=== PATIENT | female | born 1960 | race Caucasian/White ===

== ENCOUNTER 2022-08-04 15:05 | Emergency (ER) | payer OTHER, SELFPAY ==
[2022-08-04 15:07] VITALS: BP 156/110; PULSE 100; RESP 18; TEMP 36.6; O2SAT 98; BMI 42.1
--- NOTE | 2022-08-04 15:25 | ED.ALLEREA1 ---
HPI - Allergic Reaction General Chief complaint: Allergic Reaction Time Seen by Provider: 08/04/22 15:19 Source: patient Mode of arrival: walk-in Limitations: no limitations History of Present Illness HPI narrative: This document has been composed with a new electronic medical record and dragging voice recognition system. This document may not fully inaccurately reflect the entirety of the patient encounter.patient here with complaint of possible ALLERGIC reaction. She had a new food products today but she says it is also a lot of smoke in the air. Her basic symptoms today include extreme itching congestion. She does not have any hives. She does have nausea. She denied any seafood peanuts or egg products but did have a mint chocolate products today. She does not have any swelling of her tongue or lips she can tell. She does have a history of hypertension but has extreme itching and erythema of the skin.symptoms started late morning and have not gotten any better. She's not taken any medications. She says that when she takes Benadryl orally causes nausea. MD complaint: Reports allergic reaction; Denies hives or facial swelling Related Data Home Medications Medication Instructions Recorded Confirmed atorvastatin 20 mg tablet 20 mg PO DAILY 08/04/22 08/04/22 cholecalciferol (vitamin D3) 50 2,000 unit PO DAILY 08/04/22 08/04/22 mcg (2,000 unit) capsule (Vitamin D3) furosemide 20 mg tablet 20 mg PO DAILY 08/04/22 08/04/22 levothyroxine 50 mcg tablet 50 mcg PO DAILY 08/04/22 08/04/22 (Synthroid) lisinopril 20 1 tab PO DAILY 08/04/22 08/04/22 mg-hydrochlorothiazide 12.5 mg tablet pantoprazole 40 mg tablet,delayed 40 mg PO DAILY 08/04/22 08/04/22 release topiramate 50 mg tablet 50 mg PO DAILY 08/04/22 08/04/22 zolpidem 10 mg tablet 10 mg PO .hs PRN sleep 08/04/22 08/04/22 Allergies Allergy/AdvReac Type Severity Reaction Status Date / Time acyclovir Allergy Intermediate Verified 08/04/22 15:13 tb-serum Allergy Intermediate Uncoded 08/04/22 15:13 Exam Constitutional Vital Signs - 24 hr 08/04/22 15:07 Temperature 98 F Pulse Rate [Monitor] 100 H Respiratory Rate 18 Blood Pressure [Right Arm] 156/110 H Pulse Oximetry 98 Oxygen Delivery Method Room Air Course Vital Signs Vital signs: Vital Signs Temperature 98 F 08/04/22 15:07 Pulse Rate 100 H 08/04/22 15:07 Respiratory Rate 18 08/04/22 15:07 Blood Pressure 156/110 H 08/04/22 15:07 Pulse Oximetry 98 08/04/22 15:07 Oxygen Delivery Method Room Air 08/04/22 15:07 Temperature 98 F 08/04/22 15:07 Pulse Rate 100 H 08/04/22 15:07 Respiratory Rate 18 08/04/22 15:07 Blood Pressure 156/110 H 08/04/22 15:07 Pulse Oximetry 98 08/04/22 15:07 Oxygen Delivery Method Room Air 08/04/22 15:07 MDM - Allergic Reaction MDM Narrative Medical decision making narrative: This document has been composed with a new electronic medical record and dragging voice recognition system. This document may not fully inaccurately reflect the entirety of the patient encounter. Patient had rapid and significant clinical improvement with the previously mentioned therapy. It is impossible to determine exactly what her specific allergen may have been. We will start her on outpatient Medrol Clive and famotidine. Cool baths were advised. She may try some [id number] Benadryl if it doesn't have adverse reaction with her. Otherwise had like her to follow up with her primary care doctor. Discharge Plan Discharge Chief Complaint: Allergic Reaction Clinical Impression: Allergic reaction Patient Disposition: Home, Self-Care Time of Disposition Decision: 16:57 Prescriptions / Home Meds: No Action atorvastatin 20 mg tablet 20 mg PO DAILY cholecalciferol (vitamin D3) [Vitamin D3] 50 mcg (2,000 unit) capsule 2,000 unit PO DAILY furosemide 20 mg tablet 20 mg PO DAILY levothyroxine [Synthroid] 50 mcg tablet 50 mcg PO DAILY lisinopril-hydrochlorothiazide 20-12.5 mg tablet 1 tab PO DAILY pantoprazole 40 mg tablet,delayed release (DR/EC) 40 mg PO DAILY topiramate 50 mg tablet 50 mg PO DAILY zolpidem 10 mg tablet 10 mg PO .hs PRN (Reason: sleep) Instructions: General Allergic Reaction (ED) Stand Alone Forms: Portal Instructions Referrals: BARBER MELTON [Primary Care Provider] - 1 week Discharge Date/Time: 08/04/22 17:28
[2022-08-04] MEDS: DIPHENHYDRAMINE HCL 50 MG/ML (1ML) VIAL 25 MG IV (15:42)
[2022-08-04] MEDS: EPINEPHrine 1 MG/10 ML SYRINGE 0.3 MG IM (15:42)
[2022-08-04] MEDS: METHYLPREDNISOLONE SOD SUCC PF 125 MG/2 ML VIAL IVP (15:43)
[2022-08-04] MEDS: 0.9 % SODIUM CHLORIDE 1,000 ML 250 ML IV (15:43)
[2022-08-04 15:58] LABS: Basophils Absolute Auto 0.1 10^3/uL (0.0-0.1); Basophils Percent Auto 0.8 % (0.2-2.0); Eosinophils Absolute Auto 0.2 10^3/uL (0.0-0.7); Eosinophils Percent Auto 2.5 % (0.9-7.0); Hematocrit 44.7 % (36.0-48.0); Hemoglobin 15.1 g/dL (12.0-16.0); Immature Granulocytes Abs Auto 0.02 10^3/uL (0.00-0.03); Immature Granulocytes Pct Auto 0.3 % (0.0-0.5); Lymphocytes Absolute Auto 3.9 10^3/uL (1.2-3.8); Lymphocytes Percent Auto 50.1 % (20.5-60.0); Mean Corpuscular HGB Conc 33.8 g/dL (29.9-35.2); Mean Corpuscular Hemoglobin 31.9 pg (26.7-34.0); Mean Corpuscular Volume 94.3 fL (81.0-99.0); Mean Platelet Volume 11.3 fL (9.5-13.5); Monocytes Absolute Auto 0.7 10^3/uL (0.3-0.8); Monocytes Percent Auto 8.8 % (1.7-12.0); Neutrophils Percent Auto 37.5 % (43.0-75.0); Platelet Count 143 10^3/uL (150-450); Red Blood Count 4.74 10^6/uL (4.20-5.40); Red Cell Distribution Width 12.6 % (11.0-15.0); White Blood Count 7.9 10^3/uL (4.0-11.0)
[2022-08-04 16:08] LABS: BUN Creatinine Ratio 16.5; Calcium 8.8 mg/dL (8.5-10.1); Carbon Dioxide 27.2 mmol/L (21.0-32.0); Chloride 105 mmol/L (98-107); Estimated GFR (African America >60 (>=60); Estimated GFR (Non-African Ame >60 (>=60); Glucose 117 mg/dL (74-106); Potassium 3.2 mmol/L (3.5-5.1); Sodium 141 mmol/L (136-145)
[2022-08-04 17:22] VITALS: BP 126/70; PULSE 77; RESP 16; O2SAT 98
== END 2022-08-04 17:28 | disposition home or self-care (01) ==
PROVIDERS: Emergency Provider Emergency Medicine Emergency Medical Services; PCP Family Medicine
DX: T78.40XA Allergy, unspecified, initial encounter (principal)
CPT/HCPCS: 36415; 80048; 85025; 96372; 96374; 96375; 99284; J2930

== ENCOUNTER 2023-05-31 06:59 | Emergency (ER) | payer OTHER, SELFPAY ==
[2023-05-31 07:06] VITALS: BP 166/75; PULSE 93; TEMP 36.8; O2SAT 99; BMI 43.9
--- NOTE | 2023-05-31 07:16 | XR_ITS ---
The [address] [address] Patient Name: KATHY ABREU MRN: [id number] date: 1960 Sex: F Assigned Patient Location: ER Current Patient Location: ER Accession/Order Number: [id number] Exam Date: 05/31/2023 07:18 Report Date: 05/31/2023 07:42 At the request of: JOSEPH GROSSMAN Procedure: XR chest 1V EXAMINATION: XR chest 1V HISTORY: shortness of breath COMPARISON: XR chest 07/03/2016 FINDINGS: LUNGS: Mild opacities within left lung base. VASCULATURE: No increased pulmonary vasculature. PLEURA: No pneumothorax, effusion, or pleural thickening. CARDIAC: No cardiomegaly or cardiac silhouette abnormality. MEDIASTINUM: No visible mass or adenopathy. BONES: No fracture or visible bone lesion. OTHER: Negative. XR/XR chest 1V IMPRESSION: 1. Mild left basilar atelectasis versus infiltrates. 2. Evaluation is slightly limited by patient body habitus and AP portable technique. Electronically authenticated by: CUBA WONG Date: 05/31/2023 07:42
--- NOTE | 2023-05-31 07:55 | ED.GENADUL1 ---
HPI HPI - General Adult General Chief complaint: Shortness of Breath/Dyspnea Stated complaint: SOB Time Seen by Provider: 05/31/23 07:35 Source: patient Mode of arrival: walk-in Limitations: no limitations History of Present Illness HPI narrative: Patient here complaining of cough and shortness of breath congestion. She said symptoms started approximately 8 days ago with classic COVID symptomatology. She waited until the end of the week and tested positive for COVID. Her primary care doctor is also treating her for chronic back pain and she is scheduled to see physicians in [place] for that condition. She works at a [employer] and this is probably the source of her infection. She does not have diabetes but she does have hypertension. She has no history of COPD emphysema or asthma however she has been using nebulizer treatments at home a couple times a day. She has not been on any antibiotics or steroids. She has not had purulent sputum. She still has a lot of her symptoms. She is not oxygen dependent. Her oxygen pulse oximetry here is 99% on room air. She is in day 7 or 8 of her illness. She says she has used Paxlovid before and had terrible diarrhea with it but today, she is not a candidate because the timing. Related Data Home Medications ?Medication ?Instructions ?Recorded ?Confirmed atorvastatin 20 mg tablet 20 mg PO DAILY 08/04/22 05/31/23 cholecalciferol (vitamin D3) 50 2,000 unit PO DAILY 08/04/22 05/31/23 mcg (2,000 unit) capsule (Vitamin D3) furosemide 20 mg tablet 20 mg PO DAILY 08/04/22 05/31/23 lisinopril 20 1 tab PO DAILY 08/04/22 05/31/23 mg-hydrochlorothiazide 12.5 mg tablet pantoprazole 40 mg tablet,delayed 40 mg PO DAILY 08/04/22 05/31/23 release topiramate 50 mg tablet 50 mg PO DAILY 08/04/22 05/31/23 zolpidem 10 mg tablet 10 mg PO .hs PRN sleep 08/04/22 05/31/23 aripiprazole 5 mg tablet 5 mg PO DAILY 05/31/23 05/31/23 lorazepam 1 mg tablet 1 mg PO DAILY PRN anxiety 05/31/23 05/31/23 paroxetine HCl 20 mg tablet 20 mg PO DAILY 05/31/23 05/31/23 Allergies Allergy/AdvReac Type Severity Reaction Status Date / Time acyclovir Allergy Intermediate Verified 08/04/22 15:13 tb-serum Allergy Intermediate Uncoded 08/04/22 15:13 Opioid HPI Opioid Management Most Recent Opioid Data: No Data to Display [facility] Medical History (Updated 05/31/23 @ 07:59 by Ray Santiago MD) Depression ?F32.A - Depression, unspecified (ICD-10) Anxiety ?F41.9 - Anxiety disorder, unspecified (ICD-10) Hypertension ?I10 - Essential (primary) hypertension (ICD-10) Exam Narrative Exam Narrative: Awake alert good historian does not appear clinical ill or toxic but she just looks fatigued and tired. HEENT examination I see no conjunctivitis. There is no purulent rhinitis. No facial swelling. Lungs had some end expiratory bronchospasm but overall air exchange is excellent. There is no rales or rhonchi. Heart rate and rhythm are normal. Her legs do not show evidence of phlebitis edema or DVT. Cognition and mentation are normal. Constitutional Vital Signs, click to edit/add: Last Vital Signs Temp 98.2 F 05/31/23 07:06 Pulse 93 H 05/31/23 07:06 Resp 22 H 05/31/23 07:06 BP 166/75 H 05/31/23 07:06 Pulse Ox 99 05/31/23 07:06 O2 Del Method Room Air 05/31/23 07:06 Course Vital Signs Vital signs: Vital Signs Temperature 98.2 F 05/31/23 07:06 Pulse Rate 93 H 05/31/23 07:06 Respiratory Rate 22 H 05/31/23 07:06 Blood Pressure 166/75 H 05/31/23 07:06 Pulse Oximetry 99 05/31/23 07:06 Oxygen Delivery Method Room Air 05/31/23 07:06 Temperature 98.2 F 05/31/23 07:06 Pulse Rate 93 H 05/31/23 07:06 Respiratory Rate 22 H 05/31/23 07:06 Blood Pressure 166/75 H 05/31/23 07:06 Pulse Oximetry 99 05/31/23 07:06 Oxygen Delivery Method Room Air 05/31/23 07:06 Medical Decision Making MDM Narrative Medical decision making narrative: Chest x-ray is consistent with a viral bilateral pneumonitis. Her oximetry is normal. She still has a little bit of bronchial spasm. She is not a candidate for antivirals at this time. I do not believe she should be returning to work this week under these conditions so we will give her a work note. With her still having some bronchospasm we will have her continue her nebulizer treatments at least 3-4 times a day we will place her on prednisone for short burst of 5 days. Discharge Plan Discharge Stand Alone Forms: Portal Instructions Chief Complaint: Shortness of Breath/Dyspnea Clinical Impression: COVID-19 Patient Disposition: Home, Self-Care Time of Disposition Decision: 07:59 Prescriptions / Home Meds: No Action aripiprazole 5 mg tablet 5 mg PO DAILY lorazepam 1 mg tablet 1 mg PO DAILY PRN (Reason: anxiety) paroxetine HCl 20 mg tablet 20 mg PO DAILY atorvastatin 20 mg tablet 20 mg PO DAILY cholecalciferol (vitamin D3) [Vitamin D3] 50 mcg (2,000 unit) capsule 2,000 unit PO DAILY furosemide 20 mg tablet 20 mg PO DAILY lisinopril-hydrochlorothiazide 20-12.5 mg tablet 1 tab PO DAILY pantoprazole 40 mg tablet,delayed release (DR/EC) 40 mg PO DAILY topiramate 50 mg tablet 50 mg PO DAILY zolpidem 10 mg tablet 10 mg PO .hs PRN (Reason: sleep) Print Language: Citizen Of [place] Additional Instructions: Prednisone burst for 5 days/continue nebulizers 3-4 times a day Referrals: BARBER MELTON [Primary Care Provider] - 1 week
[2023-05-31 08:04] VITALS: BP 137/86; PULSE 88; O2SAT 99
== END 2023-05-31 08:05 | disposition home or self-care (01) ==
PROVIDERS: Emergency Provider Emergency Medicine Emergency Medical Services; PCP Family Medicine
DX: U07.1 COVID-19 (principal); I10 Essential (primary) hypertension; F32.A Depression, unspecified; F41.9 Anxiety disorder, unspecified; Z79.899 Other long term (current) drug therapy
CPT/HCPCS: 71045; 99283

== ENCOUNTER 2023-07-23 06:48 | Outpatient (RCR) | payer OTHER, SELFPAY | END 2023-10-02 10:55 | disposition home or self-care (01) | LOC: PT 06:48 | PROVIDERS: PCP Family Medicine; Visit Provider Anesthesiology | DX: M54.6 Pain in thoracic spine (principal); M54.50 Low back pain, unspecified | CPT/HCPCS: 97110; 97140; 97163 ==

== ENCOUNTER 2024-10-25 09:32 | Outpatient (OUT) | payer OTHER, SELFPAY ==
--- OUTSIDE RECORDS SUMMARY | 2024-09-25 09:46 | XMS_ITS ---
Author Organization The [facility] in [place] Address [address] [place] [address] Care Team Providers Care Diversified Crops Supervisor Name Role Phone Alma Mcdaniel MD Primary Care Provider Joel Schmitt [phone] REASON FOR VISIT No show Encounters Encounter Location Date Provider Diagnosis [facility] Rheumatology [address] [place] [address] 09/25/2024 Joel Mcintosh Plan Of Treatment No Information Progress Notes * Kaylynn ABREU DDOB:1960 (64 yo F)Acc No.[id number]:09/25/2024 Patient: Anid TERRANCEBasilia Kaylynn Rivera :1960 A ge:64 Y S ex:Female Address:[address] [place], [address] * true * Date: Generated for Sengi yajaira/Robbin/eTransmitting on: 0 10/25/2024 08:55 AM EDT
--- OUTSIDE RECORDS SUMMARY | 2024-10-03 06:01 | XMS_ITS ---
Author Organization The [facility] in [place] Address [address] [place] [address] Care Team Providers Care Towel Sewer Name Role Phone Alma Mcdaniel MD Primary Care Provider Joel Schmitt [phone] REASON FOR VISIT hospital stay Encounters Encounter Location Date Provider Diagnosis [facility] Rheumatology [address] [place] [address] 10/03/2024 Joel Mcintosh Plan Of Treatment No Information Progress Notes * Kaylynn ABREU DDOB:1960 (64 yo F)Acc No.[id number]:10/03/2024 Patient: Andi TERRANCEBasilia Kaylynn Rivera :1960 A ge:64 Y S ex:Female Address:[address] [place], [address] * true * Date: Generated for Sengi yajaira/Robbin/eTransmitting on: 0 10/25/2024 08:55 AM EDT
--- OUTSIDE RECORDS SUMMARY | 2024-10-13 10:15 | XMS_ITS | Encounter Summary ---
Author Organization [facility] Address [address] [place] [address] Care Team Providers Care Door Manager Name Role Phone Alma Mcdaniel MD Primary Care Provider [phone] Alma Mcdaniel MD Unavailable Alexandria Disla RN Unavailable [phone] Sheldon Durham DO Unavailable Zoraida Rodriguez NP Unavailable [phone] Reason for Visit * Reason Comments Post-op Post op geovanny Parotid ectomy Ear Problem Can't hear out of ea r Encounter Details Date Type Department Care Team (Late st Contact Info) Description 10/13/2024 10:15 AM EDT Office Visit [facility] [address] [place] [id number] Sheldon Durham DO [address] [place] [address] Parotid mass (Primary Dx); Otorrhea of left ear; Acute suppurative otitis media of left ear without spontaneous rupture of tympanic membrane, recurrence not specified Social History Tobacco Use Types Packs/Day Years Used Date Smoking Tobacco: Every Day Cigarettes 1 40 Smokeless Tobacco: Never Tobacco Cessation:Ready to Q uit: Not Asked; Counseling Given: Not Answered Alcohol Use Standard Drinks/Week Comments Not Currently 0 (1 standard drink = 0.6 oz pure alcohol) No alcohol since 2013, caffeine intake: 2 cups daily B1300 Health Literacy Answer Date Recor ded How often do you need to hav e someone help you when you read instructions, pamphlets, or other written material from your doctor or pharmacy? Never 10/15/2023 Humiliation, Afraid, Rape, and Kick questionnair e Answer Date Recorded Within the last year, have y ou been afraid of your partner or ex-partner? No 08/05/2022 Within the last year, have y ou been humiliated or emotionally abused in other ways by your partner or ex-partner? No Within the last year, have y ou been kicked, hit, slapped, or otherwise physically hurt by your partner or ex-partner? No 08/05/2022 Within the last year, have y ou been raped or forced to have any kind of sexual activity by your partner or ex-partner? No 08/05/2022 Social Connection and Isolat ion Panel [NHANES] Answer Date Recorded In a typical week, how many times do you talk on the phone with family, friends, or neighbors? More than three times a week 10/15/2023 How often do you get togethe r with friends or relatives? Once a week 10/15/2023 How often do you attend chur or roman catholic services? More than 4 times per year 10/15/2023 Do you belong to any clubs o r organizations such as holiness groups, unions, fraternal or athletic groups, or school groups? No 10/15/2023 How often do you attend meet ings of the clubs or organizations you belong to? More than 4 times per year 10/15/2023 Are you , , di vorced, , never , or living with a partner? 10/15/2023 AUDIT-C Answer Date Recorded Q1: How often do you have a drink containing alcohol? Never 10/15/2023 Q2: How many drinks containi ng alcohol do you have on a typical day when you are drinking? Patient does not drink Q3: How often do you have si x or more drinks on one occasion? Never 10/15/2023 Overall Financial Resource Strain (CARDIA) Answe r Date Recorded How hard is it for you to pa y for the very basics like food, housing, medical care, and heating? Somewhat hard 10/15/2023 PHQ-2 Answer Date Recorded Patient Health Questionnaire-2 Score 0 08/05/2022 [facility] of Occupat ional Health - Occupational Stress Questionnaire Answer Date Recorded Do you feel stress - tense, restless, nervous, or anxious, or unable to sleep at night because your mind is troubled all the time - these days? Rather much 10/15/2023 Exercise Vital Sign Answer Date Recorde d On average, how many days pe r week do you engage in moderate to strenuous exercise (like a brisk walk)? 0 days 10/15/2023 On average, how many minutes do you engage in exercise at this level? 0 min 10/15/2023 Hunger Vital Sign Answer Date Recorded Within the past 12 months, y ou worried that your food would run out before you got the money to buy more. Never true 10/15/19 24 Within the past 12 months, t he food you bought just didn't last and you didn't have money to get more. Never true 10/15/2023 PRAPARE - Transportation Answer Date Re corded In the past 12 months, has l ack of transportation kept you from medical appointments or from getting medications? No 09/29 In the past 12 months, has l ack of transportation kept you from meetings, work, or from getting things needed for daily living? No 10/15/2023 Housing Stability Vital Sign Answer August e Recorded In the last 12 months, was t here a time when you were not able to pay the mortgage or rent on time? No 08/05/2022 In the last 12 months, how many places have you lived? 1 08/05/2022 In the last 12 months, was t here a time when you did not have a steady place to sleep or slept in a usp (including now)? No 08/05/2022 Housing Stability Vital Sign Answer August e Recorded In the last 12 months, was t here a time when you were not able to pay the mortgage or rent on time? No 10/15/2023 In the past 12 months, how m any times have you moved where you were living? 0 10/15/2023 At any time in the past 12 [facility], were you homeless or living in a usp (including now)? No 10/15/2023 Comments Unknown Sex and Gender Information Value Date Recorded Sex Assigned at Not on file Legal Sex Female 7:23 PM EDT Gender Identity Not on file Sexual Orientation Not on file documented as of this encounter Last Filed Vital Signs Vital Sign Reading Time Taken Comments Blood Pressure - - Pulse - - Temperature - - Respiratory Rate - - Oxygen Saturation - - Inhaled Oxygen Concentration - - Weight 104 kg (230 lb) 10/13/2024 10:04 AM EDT Height 157.5 cm (5' 2 ) 10/13/2024 10:04 AM EDT Body Mass Index 42.07 10/13/2024 10:04 AM EDT documented in this encounter Progress Notes * Sheldon Redd Geovanijoysuzanna, DO - 10/13/2024 10:15 AM EDT Subjective Patient ID: Shelby Talamantes is a 64 y.o. female who presents for Post-op (Post op geovanny Parotidectomy) and Ear Problem (Can't hear out of ear) HPI This patient presents with a 3 day history of increasing left-sided ear pain and plugging. Patient was recently hospitalized for pneumonia. She is postop left parotidectomy. Review of Systems Patient describes pain and drainage from her left ear. Also describes decreased hearing on that side. Recently started using antibiotic ear drops. The rest of her review of systems is unchanged Objective ENT Physical Exam General Examination: General overview: Normal, age-appropriate, no evidence of distress mild respiratory difficulty Head: Normocephalic, atraumatic Eyes: Pupils are equally round and reactive to light and accommodation, extraocular muscles are intact Ears: External ear architecture within normal limits, left ear canals occluded with amorphous debris which is removed under binocular microscopy. Eardrum appears to be somewhat bulging. Hyperemia noted. Nose: External nose unremarkable, nares patent, septum intact, evidence of smoking. Oral cavity: Mucosa moist, no evidence of ulcer, mass, or lesion, poor dentition. Throat: Clear Neck/thyroid: Neck supple, full range of motion, the area of surgical intervention on the left is healing quite nicely. Lymph nodes: No cervical lymphadenopathy Skin: Warm and dry, no evidence of suspicious lesions, no rash Heart: No jugular venous distention, point of maximal impulse normal Lungs: Good air movement, no audible wheezing, no shortness of breath Chest: Normal shape and expansion Abdomen: Normal, soft, nontender, nondistended Musculoskeletal: Cervical spine normal, full range of motion Extremities: No clubbing, cyanosis, or edema Peripheral pulses: 2+ radial, 2+ carotid Neurologic: Alert and oriented, cranial nerves 2-12 are grossly intact Psych: Alert and oriented, normal affect, no evidence of distress Assessment/Plan Diagnoses and all orders for this visit: Parotid mass Comments: Patient continues to heal up very well. We will see her back as needed Otorrhea of left ear Comments: Copious material removed from the left ear canal under binocular microscopy. We will continue antibiotic eardrops and start oral medication Orders: - levoFLOXacin (Levaquin) 500 MG tablet; Take 1 tablet (500 mg) by mouth Daily for 14 days Acute suppurative otitis media of left ear without spontaneous rupture of tympanic membrane, recurrence not specified Comments: We will start this patient on oral Levaquin. We will see her back in 7-10 days for recheck documented in this encounter Plan of Treatment Upcoming Encounters Date Type Department Care Team (Late st Contact Info) Description 10/26/2024 10:45 AM EDT Office Visit [facility] [address] [place] [address] Sheldon Durham DO [address] [place] [address] 11/20/2024 8:00 AM EDT Office Visit [facility] [address] [place] [address] Zoraida Rodriguez NP [address] [place] [address] documented as of this encounter Goals Goal Patient Goal Type Associated Problems Recent Progress Patient-Stated? Author Help patient manage antidepressant medication Care Plan Patient on antidepressant monitoring plan No Alma Mcdaniel MD Baseline PHQ-9 Care Plan Baseline PHQ-9 No Alma Mcdaniel MD documented as of this encounter Visit Diagnoses Diagnosis Parotid mass- Primary Swelling, mass, or lump in head and neck Otorrhea of left ear Acute suppurative otitis media of left ear without spontaneous rupture of tympanic membrane, recurrence not specified documented in this encounter Additional Health Concerns Active Problems Noted Date Diagnosed Date Patient on antidepressant monitoring plan 2024 Baseline PHQ-9 07/04/2024 documented as of this encounter Care Teams Door Manager Relationship Specialty Start Date End Date Alma Mcdaniel MD [address] [place] [address] PCP - General Family Medicine 08/05/22 Alma Mcdaniel MD [address] [place] [address] PCP - Medical [employer] [employer] 06/27/18 10/16/24 Alexandria Disla, [place] [address] [place] [address] Registered Nurse Family Medicine 10/15/23 Sheldon Durham DO [address] [place] [address] Otolaryngology 03/03/24 Zoraida Rodriguez NP [address] [place] [address] Nurse Practitioner Family Medicine 08/23/24 documented as of this encounter
--- OUTSIDE RECORDS SUMMARY | 2024-10-16 08:00 | XMS_ITS | Encounter Summary ---
Author Organization [facility] Address [address] [place] [address] Care Team Providers Care Quality Tech Name Role Phone Alma Mcdaniel MD Primary Care Provider [phone] Alma Mcdaniel MD Unavailable Alexandria Disla RN Unavailable [phone] Sheldon Durham DO Unavailable [phone] Zoraida Rodriguez NP Unavailable [phone] Reason for Referral * Consultation (Routine) - Authorized Specialty Diagnoses / Procedures Referred By Mathew blanton Referred To Contact Pain Medicine Diagnoses Fibromyalgia Other chronic pain Chronic bilateral low back pain with bilateral sciatica Procedures CO OFFICE/OUTPATIENT [facility] MDM 60 MINUTES Zoraida Rodriguez NP [address] [place] [address] Phone: tel: fax: Parvin Jimenez MD [address] [place] [address] Phone: tel: fax: Referral ID Status Reason Start Date Expiration Date Visits Requested Visits Authorized [id number] Authorized Specialty Services Required 10/16/2024 04/14/2025 1 1 Scheduling Instructions Pain management Center in [place], [place] Reason for Visit * Reason Comments Hospital Follow-up Encounter Details Date Type Department Care Team (Late st Contact Info) Description 10/16/2024 8:00 AM EDT Office Visit [facility] [address] [place] [address] Zoraida Rodriguez NP [address] [place] [address] Hospital discharge follow-up (Primary Dx); Migraine aura occurring with and without headache ; Fibromyalgia; Other chronic pain; Chronic bilateral low back pain with bilateral sciatica; Type 2 diabetes mellitus with other specified complication, without long-term current use of insulin (HCC); Essential hypertension Social History Tobacco Use Types Packs/Day Years Used Date Smoking Tobacco: Every Day Cigarettes 1 40 Smokeless Tobacco: Never Alcohol Use Standard Drinks/Week Comments Not Currently [...] week 10/15/2023 How often do you attend [facility] or denominational services? More than 4 times per year 10/15/2023 Do you belong to any clubs o r organizations such as advent groups, unions, fraternal or athletic groups, or [...] Recorded Patient Health Questionnaire-2 Score 0 [facility] - Occupational Stress Questionnaire Answer Date Recorded [...] place to sleep or slept in a long term (including now)? No 08/05/2022 Housing Stability Vital Sign Answer August e Recorded In the last 12 months, was t here a time when you were not able to pay the mortgage or rent on time? No 10/15/2023 In the past 12 months, how m any times have you moved where you were living? 0 10/15/2023 At any time in the past 12 m [facility], were you homeless or living in a long term (including now)? No 10/15/2023 Comments Unknown Sex and Gender Information Value Date Recorded Sex Assigned at Not on file Legal Sex Female 7:23 PM EDT Gender Identity Not on file Sexual Orientation Not on file documented as of this encounter Last Filed Vital Signs Vital Sign Reading Time Taken Comments Blood Pressure 122/68 10/16/2024 8:05 AM EDT Pulse 98 10/16/2024 8:05 AM EDT Temperature - - Respiratory Rate - - Oxygen Saturation 96% 10/16/2024 8:05 AM EDT Inhaled Oxygen Concentration - - Weight 105 kg (231 lb) 10/16/2024 8:05 AM EDT Height 157.5 cm (5' 2 ) 10/16/2024 8:05 AM EDT Body Mass Index 42.25 10/16/2024 8:05 AM EDT documented in this encounter Progress Notes * Zoraida Rodriguez NP - 10/16/2024 8:00 AM EDTAssociated Problem(s): Fibromyalgia Orders: Ambulatory referral to Pain Medicine; Future * Zoraida Rodriguez NP - 10/16/2024 8:00 AM EDTAssociated Problem(s): Other chronic pain Orders: Ambulatory referral to Pain Medicine; Future HYDROcodone-acetaminophen (Cheraw) 5-325 MG tablet; Take 1 tablet by mouth every 6 (six) hours if needed for severe pain for up to 2 days * Zoraida Rodriguez NP - 10/16/2024 8:00 AM EDTAssociated Problem(s): Chronic bilateral low back pain with bilateral sciatica Orders: Ambulatory referral to Pain Medicine; Future HYDROcodone-acetaminophen (Cheraw) 5-325 MG tablet; Take 1 tablet by mouth every 6 (six) hours if needed for severe pain for up to 2 days * Zoraida Rodriguez NP - 10/16/2024 8:00 AM EDTAssociated Problem(s): Type 2 diabetes mellitus, without long-term current use of insulin (HCC) Orders: Tirzepatide 10 MG/0.5ML solution auto-injector; Inject 10 mcg under the skin every 7 (seven) days Diabetic protocols reviewed. Discussed and updated current management plan. Addressed barriers to care, diet, exercise plan and blood sugar testing. Education provided for mediations. Discussed complications which could include blindness, heart disease and kidney disease. Goal of A1C less then 7 and Blood pressure less then 130/80. * Zoraida Rodriguez NP - 10/16/2024 8:00 AM EDTAssociated Problem(s): Essential hypertension Continue to check blood pressures at home while staying off of lisinopril- hydrochlorothiazide. If blood pressures continue to stay in normal range, will stay of of medication. If blood pressures increase, will restart medication. * Zoraida Rodriguez NP - 10/16/2024 8:00 AM EDT Images from the original note were not included. Subjective Patient ID: Shelby Talamantes is a 64 y.o. female who presents for Hospital Follow-up. HPI Flowsheet Row Patient Outreach from 10/10/2024 in [facility] with Alexandria Disla RN Hospital Information ED, Hospital or Usp Facility Discharge? Hospital Patient has been contacted within two business days of discharge Yes Diagnosis acute resp failure with hypoxemia, severe sepsis, CA pneum, demand, ischemia, myocardium,copd exac, nicotine dependence, htn, morbid obesiy Discharge Date 10/06/24 Discharged To: Home Setting Discharge Hospital [facility] Engagement Admission Date 09/28/24 Medications Discharge medications reviewed and reconciled from hospital? Yes Is the patient having any side effects they believe may be caused by any medication additions or changes? Yes [itching when wearing nicotine patch] Does the patient have all medications ordered at discharge? Yes Is the patient taking all medications as directed (includes completed medication regime)? Yes Appointments Does the patient have a primary care provider? Yes Nursing Interventions Verified appointment date/time/provider Does the patient have any upcoming specialty appointments? Yes Nursing Interventions Advised patient to keep appointment Self Management Does patient have home health? no Patient Teaching Does the patient have access to their discharge instructions? Yes Nursing Interventions Reviewed instructions with patient What is the patient's perception of their health status since discharge? Improving Is the patient/caregiver able to teach back the hierarchy of who to call/visit for symptoms/problems? PCP, Specialist, Home Health nurse, Urgent Care, ED, 911 Yes Wrap Up History of Present Illness The patient presents for evaluation of pain management, hearing loss, diabetes, hypertension, and lower extremity edema. She reports an improvement in her condition following a hospital stay, during which she was prescribed a buprenorphine patch by a painter plate. This treatment allowed her to perform daily activities without experiencing pain. However, the patch has since , and was not given anyrefills after her hospital discharge. Consequently, she has been experiencing a recurrence of body pain and difficulty performing simple tasks such as making a sandwich or bed. She also reports waking up frequently at night due to pain. She is seeking a temporary solution for her pain until she canresume her pain management regimen. She was previously taking hydrocodone 5 mg for pain relief. Shehad to cancel her contract with Dr. Porter due to insurance issues and is currently seeking a new provider. She experienced a significant hearing loss, which she attributes to an ear infection. She is currently not using her hearing aids due to the infection and associated drainage. She was prescribed levothyroxine and eardrops by Dr. Durham. She has a follow up appointment with Dr. Padilla on 10/26/2024. She used her last dose of Mounjaro the previous night and is requesting a prescription refill. She did not take Mounjaro during her hospital stay and missed one dose. She was advised to discontinue lisinopril during her hospital stay and has not been monitoring her blood pressure at home. She has a history of low blood pressure, with a recorded reading of 96/58, which led to the discontinuation of hydrochlorothiazide. She has noticed swelling in her ankles and is considering resuming Bumex, which she was previously advised to stop by Dr. Mcdaniel. She had difficulty sleeping during her hospital stay, managing only 20 minutes of sleep over two days. She was diagnosed with two different types of pneumonia during her hospital stay. She missed a dentist appointment during her hospital stay. Social History: Marital Status: Tobacco: Smokes cigarettes Sleep: Reports difficulty sleeping, only managed 20 minutes of sleep over two days during hospital stay Living Condition: Lives with PAST SURGICAL HISTORY: Neck surgery Objective BP 122/68 Pulse 98 Ht 5' 2 Wt 231 lb SpO2 96% BMI 42.25 kg/m?? Physical Exam Vitals and nursing note reviewed. Constitutional: Appearance: Normal appearance. HENT: Head: Normocephalic and atraumatic. Right Ear: There is impacted cerumen. Left Ear: Drainage, swelling and tenderness present. Cardiovascular: Rate and Rhythm: Normal rate and regular rhythm. Pulses: Normal pulses. Heart sounds: Normal heart sounds. Pulmonary: Effort: Pulmonary effort is normal. No respiratory distress. Breath sounds: Normal breath sounds. No stridor. No wheezing, rhonchi or rales. Musculoskeletal: Right lower le+ Pitting Edema present. Left lower le+ Pitting Edema present. Skin: General: Skin is warm and dry. Neurological: General: No focal deficit present. Mental Status: She is alert and oriented to person, place, and time. Psychiatric: Mood and Affect: Mood normal. Behavior: Behavior normal. Physical Exam Ears: Swelling noted in the ear. Respiratory: Clear to auscultation, no wheezing, rales or rhonchi Cardiovascular: Regular rate and rhythm, no murmurs, rubs, or gallops Extremities: Swelling noted in the ankles. Assessment & Plan Migraine aura occurring with and without headache Stable Hospital discharge follow-up Reviewed hospital records including labs, imaging, procedure and consult notes. Overall patient is feeling better and is encouraged to keep follow-up appointments with specialists as scheduled. Patient voices no further concerns at this time. Fibromyalgia Orders: Ambulatory referral to Pain Medicine; Future Other chronic pain Orders: Ambulatory referral to Pain Medicine; Future HYDROcodone-acetaminophen (Cheraw) 5-325 MG tablet; Take 1 tablet by mouth every 6 (six) hours if needed for severe pain for up to 2 days Chronic bilateral low back pain with bilateral sciatica Orders: Ambulatory referral to Pain Medicine; Future HYDROcodone-acetaminophen (Cheraw) 5-325 MG tablet; Take 1 tablet by mouth every 6 (six) hours if needed for severe pain for up to 2 days Type 2 diabetes mellitus with other specified complication, without long-term current use of insulin (HCC) Orders: Tirzepatide 10 MG/0.5ML solution auto-injector; Inject 10 mcg under the skin every 7 (seven) days Diabetic protocols reviewed. Discussed and updated current management plan. Addressed barriers to care, diet, exercise plan and blood sugar testing. Education provided for mediations. Discussed complications which could include blindness, heart disease and kidney disease. Goal of A1C less then 7 and Blood pressure less then 130/80. Essential hypertension Continue to check blood pressures at home while staying off of lisinopril- hydrochlorothiazide. If blood pressures continue to stay in normal range, will stay of of medication. If blood pressures increase, will restart medication. Assessment & Plan 1. Pain management: - Pain is likely exacerbated by fibromyalgia and other chronic pain. - Referral to [facility]. [facility]endrez at [facility] for pain management has been initiated. - Prescription for Cheraw, sufficient for 2 days, has been provided. She is advised to contact the pain management clinic for further medication management. 2. Hearing loss: - Significant hearing loss reported and currently not using hearing aids due to an ear infection. - Advised to continue using the prescribed eardrops from Dr. Durham and to keep follow up appointment on 10/26/2024. 3. Diabetes: - Prescription for tirzepatide (Mounjaro) has been sent to pharmacy. 4. Hypertension: - Advised to monitor blood pressure at home and keep of log of blood pressures. 5. Lower extremity edema: - Swelling in ankles reported. - May continue taking Bumex for leg swelling. Follow-up: The patient will follow up in 1 month for diabetes and hypertension follow up. documented in this encounter Plan of Treatment Upcoming Encounters Date Type Department Care Team (Late st Contact Info) Description 10/26/2024 10:45 AM EDT Office Visit [facility] [address] [place] [address] Sheldon Durham DO [address] [place] [address] 11/20/2024 8:00 AM EDT Office Visit [facility] [address] [place] [address] Zoraida Rodriguez NP [address] [place], [place] [id number] Scheduled Referrals Name Type Priority Associated Diagnoses Order Schedule Ambulatory referral to Pain Medicine Outpatient Referral Routine Fibromyalgia Other chronic pain Chronic bilateral low back pain with bilateral sciatica Expected: 10/16/2024 (Approximate), Expires: 04/18/2025 documented as of this encounter Goals Goal Patient Goal Type Associated Problems Recent Progress Patient-Stated? Author Help patient manage antidepressant medication Care Plan Patient on antidepressant monitoring plan No Alma Mcdaniel MD Baseline PHQ-9 Care Plan Baseline PHQ-9 No Alma Mcdaniel MD documented as of this encounter Visit Diagnoses Diagnosis Hospital discharge follow-up- Primary Other follow-up examination Migraine aura occurring with and without headache Fibromyalgia Unspecified myalgia and myositis Other chronic pain Chronic bilateral low back pain with bilateral sciatica Type 2 diabetes mellitus with other specified complication, without long-term current use of insulin (HCC) Essential hypertension Unspecified essential hypertension documented in this encounter Additional Health Concerns Active Problems Noted Date Diagnosed Date Patient on antidepressant monitoring plan 2024 Baseline PHQ-9 07/04/2024 documented as of this encounter Care Teams Quality Tech Relationship Specialty Start Date End Date Alma Mcdaniel MD [address] [place], [place] [id number] PCP - General Family Medicine 08/05/22 Alma Mcdaniel MD [address] [place], [place] [id number] PCP - Medical [place] [employer] 06/27/18 10/16/24 Alexandria Disla RN [address] [place] [address] Registered Nurse Family Medicine 10/15/23 Sheldon Durham DO [address] [place] [address] Otolaryngology 03/03/24 Zoraida Rodriguez NP [address] [place], [place] [phone] Nurse Practitioner Family Medicine 08/23/24 documented as of this encounter
--- OUTSIDE RECORDS SUMMARY | 2024-10-20 08:00 | XMS_ITS ---
Author Organization [facility] in [place] Address [address] [place] [address] Care Team Providers Care Business Development Associate Name Role Phone Alma Mcdaniel MD Primary Care Provider Joel Schmitt [phone] REASON FOR VISIT -2 Month Follow Up- Encounters Encounter Location Date Provider Diagnosis [facility] Rheumatology [address] [place] [address] 10/20/2024 Joel Mcintosh Plan Of Treatment No Information Progress Notes * Kaylynn ABREU DDOB:1960 (64 yo F)Acc No.[id number]:10/20/2024 UNLOCKED PROGRESS NOTE Follow Up Patient: Andi TERRANCEBasilia Kaylynn Rivera Provider: Syed Mcintosh DO :1960 A ge:64 Y S ex:Female Date:10/20/2024 Address:[address] [facility] Pcp:Alma Mcdaniel MD Subjective: * Chief Complaints: * 1 . -2 Month Follow Up-. * Medical History: Objective: * Vitals: Assessment: Plan: * Treatment: * * Electronic signature of Daisy Mcintosh DO, [id number] on 10/25/2024 at 08:55 AM EDT Sign off status: Pending Visit Status: R /S (Rescheduled) * Provider: Syed Mcintosh DO Date: 0 10/20/2024 Generated for Lizabeth gates/Robbin/Juan Citting on: 0 10/25/2024 08:55 AM EDT
--- OUTSIDE RECORDS SUMMARY | 2024-10-25 09:35 | XMS_ITS | Encounter Summary ---
Author Organization [facility] Address [address] [place] [address] Care Team Providers Care Health And Wellness Sales Consultant Name Role Phone Alma Mcdaniel MD Primary Care Provider [phone] Ayse Carmona NP Unavailable [phone] Alma Mcdaniel MD Unavailable Alexandria Disla RN Unavailable [phone] Sheldon Durham DO Unavailable [phone] Zoraida Rodriguez NP Unavailable [phone] Encounter Details Date Type Department Care Team (Late st Contact Info) Description 07/02/2024 [facility] [address] [place] [address] Stephanie Pelayo NP Social History Tobacco Use Types Packs/Day Years Used Date Smoking Tobacco: Every Day Cigarettes 1 40 Smokeless Tobacco: Never Alcohol Use Standard Drinks/Week Comments Not Currently 0 (1 standard drink = 0.6 oz pur e alcohol) No alcohol since 2013 B1300 Health Literacy Answer Date Recor ded [...] 10/15/2023 How often do you attend chur ch or jew services? More than 4 times per year 10/15/2023 Do you belong to any clubs o r organizations such as congregational groups, unions, fraternal or athletic groups, or [...] Recorded Patient Health Questionnaire-2 Score 0 08/05/2022 [facility] - Occupational Stress [...] place to sleep or slept in a senior care (including now)? No 08/05/2022 Housing Stability Vital Sign Answer August e Recorded In the last 12 months, was t here a time when you were not able to pay the mortgage or rent on time? No 10/15/2023 In the past 12 months, how m any times have you moved where you were living? 0 10/15/2023 At any time in the past 12 m [facility], were you homeless or living in a senior care (including now)? No 10/15/2023 Comments Unknown Sex and Gender Information Value Date Recorded Sex Assigned at Not on file Legal Sex Female 7:23 PM EDT Gender Identity Not on file Sexual Orientation Not on file documented as of this encounter Plan of Treatment Upcoming Encounters Date Type Department Care Team (Late st Contact Info) Description 10/26/2024 10:45 AM EDT Office [facility] [address] [place] [address] Sheldon Durham DO [address] [place] [address] 11/20/2024 8:00 AM EDT Office Visit [facility] [address] [facility] [place] [id number] Zoraida Rodriguez NP [address] [facility] [place] [address] documented as of this encounter Visit Diagnoses Not on filedocumented in this encounter Care Teams Health And Wellness Sales Consultant Relationship Specialty Start Date End Date Alma Mcdaniel MD [address] [facility] [place] [address] PCP - General Family Medicine 08/05/22 Alma Mcdaniel MD [address] [facility] [place] [address] PCP - Medical [place] [employer] 06/27/18 10/16/24 Ayse Carmona NP [address] [facility] [place] [address] Nurse Practitioner Family Medicine 08/05/22 08/22/24 Alexandria Disla, [place] [address] [place] [address] Registered Nurse Family Medicine 10/15/23 Sheldon Durham DO [address] [place] [address] Otolaryngology 03/03/24 Zoraida Rodriguez NP [address] [place] [address] Nurse Practitioner Family Medicine 08/23/24 documented as of this encounter
--- OUTSIDE RECORDS SUMMARY | 2024-10-25 09:35 | XMS_ITS | Encounter Summary ---
Author Organization [facility] Address [address] [place] [facility] [place] [address] Care Team Providers Care Travel Accommodations Rater Name Role Phone Alma Mcdaniel MD Primary Care Provider [phone] Ayse Carmona QA TEST ANALYST Unavailable [phone] Alma Mcdaniel MD Unavailable Alexandria Disla RN Unavailable [phone] Sheldon Durham DO Unavailable [phone] Zoraida Rodriguez QA TEST ANALYST Unavailable [phone] Encounter Details Date Type Department Care Team (Late st Contact Info) Description 07/20/2024 Results Follow-Up [facility] [address] [place] [address] Alma Mcdaniel MD [address] [place], [place] [phone] POCT Urinalysis dipstick, Urine culture (clean catch) Social History Tobacco Use Types Packs/Day Years [...] week 10/15/2023 How often do you attend [facility] or judaism services? More than 4 times per year 10/15/2023 Do you belong to any clubs o r organizations such as anglican groups, unions, fraternal or athletic groups, or [...] Recorded Patient Health Questionnaire-2 Score 0 08/05/2022 [facility] - Occupational Stress [...] place to sleep or slept in a snf (including now)? No 08/05/2022 Housing Stability Vital [...] were you homeless or living in a snf (including now)? No 10/15/2023 Comments Unknown Sex [...] Visit [facility] [address] [place] [address] Sheldon Durham DO [address] [place] [address] 11/20/2024 8:00 AM EDT Office Visit [facility] [address] [place] [phone] Zoraida Rodriguez NP [address] [place] [address] documented as of this encounter Goals Goal Patient Goal Type Associated Problems Recent Progress Patient-Stated? Author Help patient manage antidepressant medication Care Plan Patient on antidepressant monitoring plan No Alma Mcdaniel MD Baseline PHQ-9 Care Plan Baseline PHQ-9 No Alma Mcdaniel MD documented as of this encounter Visit Diagnoses Diagnosis Dysuria- Primary documented in this encounter Additional Health Concerns Active Problems Noted Date Diagnosed Date Patient on antidepressant monitoring plan 2024 Baseline PHQ-9 07/04/2024 documented as of this encounter Care Teams Travel Accommodations Rater Relationship Specialty Start Date End Date Alma Mcdaniel MD [address] [place] [address] PCP - General Family Medicine 08/05/22 Alma Mcdaniel MD [address] [place] [address] PCP - Medical [place] [employer] 06/27/18 10/16/24 Ayse Carmona NP [address] [place] [address] Nurse Practitioner Family Medicine 08/05/22 08/22/24 Alexandria Disla, RN [address] [place] [address] Registered Nurse Family Medicine 10/15/23 Sheldon Durham DO [address] [place] [address] Otolaryngology 03/03/24 Zoraida Rodriguez NP [address] [place] [address] Nurse Practitioner Family Medicine 08/23/24 documented as of this encounter
--- OUTSIDE RECORDS SUMMARY | 2024-10-25 09:35 | XMS_ITS | Encounter Summary ---
Author Organization [facility] Address [address] [facility] [place] [address] Care Team Providers Care Flight Attendant/Inflight Manager Name Role Phone Alma Mcdaniel MD Primary Care Provider [phone] Ayse Carmona SURVEILLANCE ANALYST Unavailable [phone] Alma Mcdaniel MD Unavailable Alexandria Disla RN Unavailable [phone] Sheldon Durham DO Unavailable Zoraida Rodriguez SURVEILLANCE ANALYST Unavailable [phone] Encounter Details Date Type Department Care Team (Late st Contact Info) Description 07/22/2024 [facility] [address] [place] [address] Alma Mcdaniel MD [address] [place], [place] [id number] Social History Tobacco Use Types Packs/Day Years [...] week 10/15/2023 How often do you attend [facility] or baptism services? More than 4 times per year 10/15/2023 Do you belong to any clubs o r organizations such as sikh groups, unions, fraternal or athletic groups, or [...] Recorded Patient Health Questionnaire-2 Score 0 08/05/2022 [facility] [place] of Occupat ional Health - Occupational Stress [...] place to sleep or slept in a correction (including now)? No 08/05/2022 Housing Stability Vital Sign Answer August e Recorded In the last 12 months, was t here a time when you were not able to pay the mortgage or rent on time? No 10/15/2023 In the past 12 months, how m any times have you moved where you were living? 0 10/15/2023 At any time in the past [address] [facility], were you homeless or living in a correction (including now)? No 10/15/2023 Comments Unknown Sex [...] Visit [facility] [address] [place] [address] Sheldon Durham DO [address] [place] [address] 11/20/2024 8:00 AM EDT Office Visit [facility] [address] [place] [phone] Zoraida Rodriguez NP [address] [place] [address] documented as of this encounter Goals Goal Patient Goal Type Associated Problems Recent Progress Patient-Stated? Author Help patient manage antidepressant medication Care Plan Patient on antidepressant monitoring plan No Alma Mcdaniel MD Baseline PHQ-9 Care Plan Baseline PHQ-9 No Alma Mcdaniel MD documented as of this encounter Visit Diagnoses Not on filedocumented in this encounter Additional Health Concerns Active Problems Noted Date Diagnosed Date Patient on antidepressant monitoring plan 2024 Baseline PHQ-9 07/04/2024 documented as of this encounter Care Teams Flight Attendant/Inflight Manager Relationship Specialty Start Date End Date Alma Mcdaniel MD [address] [place] [address] PCP - General Family Medicine 08/05/22 Alma Mcdaniel MD [address] [place] [address] PCP - Medical [place] [employer] 06/27/18 10/16/24 Ayse Carmona NP [address] [place] [address] Nurse Practitioner Family Medicine 08/05/22 08/22/24 Alexandria Disla RN [address] [facility] [place] [address] Registered Nurse Family Medicine 10/15/23 Sheldon Durham DO [address] [place] [address] Otolaryngology 03/03/24 Zoraida Rodriguez NP [address] [place] [address] Nurse Practitioner Family Medicine 08/23/24 documented as of this encounter
--- OUTSIDE RECORDS SUMMARY | 2024-10-25 09:35 | XMS_ITS | Encounter Summary ---
Author Organization [facility] Address [address] [place] [address] Care Team Providers Care Physical Director Name Role Phone Alma Mcdaniel MD Primary Care Provider [phone] Alma Mcdaniel MD Unavailable Alexandria Disla RN Unavailable [phone] Sheldon Durham DO Unavailable [phone] Zoraida Rodriguez NP Unavailable [phone] Encounter Details Date Type Department Care Team (Latest Contact Info) Description 10/13/2024 Travel Social History Tobacco Use Types Packs/Day Years [...] How often do you attend [facility] or presybeterian services? More than 4 times per year 10/15/2023 Do you belong to any clubs o r organizations such as amish groups, unions, fraternal or athletic groups, or [...] Recorded Patient Health Questionnaire-2 Score 0 08/05/2022 [facility] of Occupat ionfl Health - Occupational Stress Questionnaire Answer Date [...] place to sleep or slept in a group home (including now)? No 08/05/2022 Housing Stability Vital [...] were you homeless or living in a group home (including now)? No 10/15/2023 Comments Unknown Sex [...] Visit [facility] [address] [place] [address] Sheldon Durham, [address] [address] 11/20/2024 8:00 AM EDT Office Visit [facility] [address] [facility] [place] [phone] Zoraida Rodriguez NP [address] [facility] [place] [address] documented as of this encounter Goals Goal [...] documented as of this encounter Care Teams Physical Director Relationship Specialty Start Date End Date Alma Mcdaniel MD [address] [place] [address] PCP - General Family Medicine 08/05/22 Alma Mcdaniel MD [address] [facility] [place] [address] PCP - Medical [place] [employer] 06/27/18 10/16/24 Alexandria Disla, [place] [address] [place] [address] Registered Nurse Family Medicine 10/15/23 Sheldon Durham DO [address] [place] [address] Otolaryngology 03/03/24 Zoraida Rodriguez NP [address] [place] [address] Nurse Practitioner Family Medicine 08/23/24 documented as of this encounter
--- OUTSIDE RECORDS SUMMARY | 2024-10-25 09:35 | XMS_ITS | Encounter Summary ---
Author Organization [facility] Healthcare Address [address] [place] [address] Care Team Providers Care Refrigerator Repair Technician Name Role Phone Alma Mcdaniel MD Primary Care Provider [phone] Alma Mcdaniel MD Unavailable Alexandria Disla RN Unavailable [phone] Sheldon Durham DO Unavailable [phone] Zoraida Rodriguez NP Unavailable [phone] Encounter Details Date Type Department Care Team (Late st Contact Info) Description 10/10/2024 Patient Outreach [facility] [address] [place] [phone] Alexandria Disla, RN [address] [place], [place] [id number] Social History Tobacco Use Types Packs/Day Years [...] How often do you attend chur or anabaptist services? More than 4 times per year 10/15/2023 Do you belong to any clubs o r organizations such as rastafari groups, unions, fraternal or athletic groups, or [...] Recorded Patient Health Questionnaire-2 Score 0 08/05/2022 [facility] of Occupat ional Health - Occupational [...] any time in the past 12 m [facility], were you homeless or living in a long term (including now)? No 10/15/2023 Comments Unknown Sex and Gender Information Value Date Recorded Sex Assigned at Not on file Legal Sex Female 7:23 PM EDT Gender Identity Not on file Sexual Orientation Not on file documented as of this encounter Progress Notes * Alexandria Disla RN - 10/10/2024 4:40 PM EDT Images from the original note were not included. Hosp reports reviewed. Called and spoke to pt. She was admitted to [facility] 09/28-10/06 for pneumonia. Pt reports she is feeling better, still has weakness. She is scheduled for hosp fu 10/16. Reviewed meds.Encouraged to bring with her to her appt. Pt reports the nicotine patch caused severe itching. Reports her pain is better managed with the med changes. She will call ccm with any questions or concerns. Flowsheet Row Patient Outreach from 10/10/[address] [facility] with Alexandria Disla RN Hospital Information ED, Hospital or Retirement Facility Discharge? Hospital Patient has been contacted within two business days of discharge Yes Diagnosis acute resp failure with hypoxemia, severe sepsis, CA pneum, demand, ischemia, myocardium,copd exac, nicotine dependence, htn, morbid obesiy Discharge Date 10/06/24 Discharged To: Home Setting Discharge Hospital [facility] Engagement Admission Date 09/28/24 Medications [...] Urgent Care, ED, 911 Yes Wrap Up documented in this encounter Plan of Treatment Upcoming Encounters Date Type Department Care Team (Late st Contact Info) Description 10/26/2024 10:45 AM EDT Office Visit [facility] [address] [place] [address] Sheldon Durham DO [address] [place] [address] 11/20/2024 8:00 AM EDT Office Visit [facility] Family Medicine [address] [facility] [place] [phone] Zoraida Rodriguez NP [address] [place] [address] documented as of this encounter Goals Goal Patient Goal Type Associated Problems Recent Progress Patient-Stated? Author Help patient manage antidepressant medication Care Plan Patient on antidepressant monitoring plan No Alma Mcdaniel MD Baseline PHQ-9 Care Plan Baseline PHQ-9 No Alma Mcdaniel MD documented as of this encounter Visit Diagnoses Diagnosis Chronic obstructive pulmonary disease, unspecified COPD type (HCC)- Primary Essential hypertension Unspecified essential hypertension documented in this encounter Additional Health Concerns Active Problems Noted Date Diagnosed Date Patient on antidepressant monitoring plan 2024 Baseline PHQ-9 07/04/2024 documented as of this encounter Care Teams Refrigerator Repair Technician Relationship Specialty Start Date End Date Alma Mcdaniel MD [address] [place] [address] PCP - General Family Medicine 08/05/22 Alma Mcdaniel MD [address] [place] [address] PCP - Medical [employer] [place] [employer] 06/27/18 10/16/24 Alexandria Disla, RN [address] [place] [address] Registered Nurse Family Medicine 10/15/23 Sheldon Durham DO [address] [place] [address] Otolaryngology 03/03/24 Zoraida Rodriguez NP [address] [place] [address] Nurse Practitioner Family Medicine 08/23/24 documented as of this encounter
--- OUTSIDE RECORDS SUMMARY | 2024-10-25 09:35 | XMS_ITS | Encounter Summary ---
Author Organization [facility] Address [address] [facility] [place] [address] Care Team Providers Care Apprentice Embalmer Name Role Phone Alma Mcdaniel MD Primary Care Provider [phone] Ayse Carmona DATA OFFICER Unavailable [phone] Alma Mcdaniel MD Unavailable Alexandria Disla RN Unavailable [phone] Sheldon Durham DO Unavailable [phone] Zoraida Rodriguez DATA OFFICER Unavailable [phone] Encounter Details Date Type Department Care Team (Late st Contact Info) Description 06/11/[address] [facility] Family Medicine [address] [place] [address] Alma Mcdaniel MD [address] [place], [place] [phone] Social History Tobacco Use Types Packs/Day Years [...] week 10/15/2023 How often do you attend [facility] or restorationist services? More than 4 times per year 10/15/2023 Do you belong to any clubs o r organizations such as moravian groups, unions, fraternal or athletic groups, or [...] Recorded Patient Health Questionnaire-2 Score 0 08/05/2022 [facility] [place] of Occupat ional Health - Occupational Stress [...] any time in the past 12 m [facility], were you homeless or living in a [...] Office Visit [facility] [address] [place] [address] Sheldon Durham DO [address] [place] [address] 11/20/2024 8:00 AM EDT Office Visit [facility] [address] [facility] [place] [phone] Zoraida Rodriguez NP [address] [facility] [place] [address] documented as of this encounter Visit Diagnoses Not on filedocumented in this encounter Care Teams Apprentice Embalmer Relationship Specialty Start Date End Date Alma Mcdaniel MD [address] [facility] [place] [address] PCP - General Family Medicine 08/05/22 Alma Mcdaniel MD [address] [facility] [place] [address] PCP - Medical [place] [employer] 06/27/18 10/16/24 Ayse Carmona NP [address] [facility] [place] [address] Nurse Practitioner Family Medicine 08/05/22 08/22/24 Alexandria Disla, [place] [address] [facility] [place] [address] Registered Nurse Family Medicine 10/15/23 Sheldon Durham DO [address] [place] [address] Otolaryngology 03/03/24 Zoraida Rodriguez NP [address] [place] [address] Nurse Practitioner Family Medicine 08/23/24 documented as of this encounter
--- OUTSIDE RECORDS SUMMARY | 2024-10-25 09:35 | XMS_ITS | Clinical Summary ---
Author Organization [facility] Address [id number] [place] [address] Care Team Providers Care Box Truck Owner Operator Name Role Phone Alma Mcdaniel MD Primary Care Provider [phone] Allergies Active Allergy Reactions Criticality Noted Date Comments Acyclovir Other (See Comments) 07/09/2016 Horrible headaches, cannot hear Tuberculin Rash Low 07/06/2016 Medications * This document contains information received from the source organization and may not represent a complete record from that organization. atorvastatin (LIPITOR) 20 mg tablet Take 1 tablet (20 mg total) by mouth in the morning. Active levothyroxine (SYNTHROID, LEVOTHROID) 50 MCG tablet Take 1 tablet (50 mcg total) by mouth in the morning. Active lisinopril (PRINIVIL,ZESTR IL) 20 mg tablet Take 1 tablet (20 mg total) by mouth in the morning. Active pantoprazole (PROTONIX) 20 mg EC tablet Take 1 tablet (20 mg total) by mouth in the morning. Active zolpidem (AMBIEN) 10 mg tablet Take 1 tablet (10 mg total) by mouth in the morning. 10/19/2018 Active topiramate (TOPAMAX) 25 mg tablet Take 1 tablet (25 mg total) by mouth in the morning. 09/22/2018 Active furosemide (LASIX) 20 mg tabletIndicatio ns:edema Take 1 tablet (20 mg total) by mouth 2 (two) times a day Indications: visible water retention. Active albuterol (PROVENTIL HFA;VENTOLIN HFA) 90 mcg/actuation inhalerIndicati ons:Bronchospas m with bronchitis, acute Inhale 2 puffs every 4 (four) hours as needed for wheezing. 18 g 05/17/2022 Active VITAMIN D3 50 mcg (2,000 unit) capsule 02/21/2022 Activ e ondansetron (ZOFRAN) 4 mg tablet Take 1 tablet (4 mg total) by mouth in the morning and 1 tablet (4 mg total) before bedtime. 05/22/2022 Active benzonatate (TESSALON PERLES) 200 mg capsule take 1 capsule by mouth three times a day for 5 days 05/22/2022 Active ARIPiprazole (ABILIFY) 5 mg tablet take 1 tablet by mouth every morning Active nortriptyline (PAMELOR) 10 mg capsule take 1 capsule by mouth at bedtime 03/12/2023 Active PARoxetine (PAXIL) 20 mg tablet Take 1 tablet (20 mg total) by mouth every morning. 90 tablet 1 07/02/2023 Active LORazepam (ATIVAN) 1 mg tabletIndicatio ns:Generalized anxiety disorder Take 1 tablet (1 mg total) by mouth daily as needed for anxiety. 30 tablet 10/21/2023 Active Active Problems Problem Noted Date Diagnosed Date Generalized anxiety disorder 03/19/2023 Major depressive disorder, recurrent episode, mo derate 03/19/2023 Post traumatic stress disorder (PTSD) 03/19/2023 Adenomatous polyp of descending colon 12/13/2018 Adenomatous polyp of ascending colon 12/13/2018 Hyperplastic colonic polyp 12/13/2018 Diverticulosis large intesti ne w/o perforation or abscess w/o bleeding 12/13/2018 Positive colorectal cancer screening using Colog uard test 11/17/2018 Constipation 11/17/2018 Deviated septum 09/21/2016 GERD (gastroesophageal reflux disease) 7 Hearing loss 09/16/2016 Hypertension 09/16/2016 Thyroid disease 09/16/2016 Obesity 09/16/2016 Perforation of right tympanic membrane 7 Dysfunction of both eustachian tubes 08/05/2016 Chronic sinusitis 07/06/2016 Resolved Problems Problem Noted Date Diagnosed Date Resolved Date Nasal obstruction 07/06/2016 07/06/2016 Deviated septum 07/06/2016 07/06/2016 Family History * Patient is adopted Medical History Relation Name Comments Hypertension Father Stroke Father Cancer Maternal Aunt vaginal Cancer Maternal Grandmother breast Arthritis Mother Heart disease Mother Hypertension Mother Stroke Mother Relation Name Status Comments Father Maternal Aunt Maternal Grandmother Mother Social History Tobacco Use Types Packs/Day Years Used Date Smoking Tobacco: Every Day Cigarettes 1 35 Smokeless Tobacco: Never Tobacco Cessation:Ready to Q uit: Not Asked; Counseling Given: Not Answered Alcohol Use Standard Drinks/Week Comments No 0 (1 standard drink = 0.6 oz pur e alcohol) Childcare Answer Date Recorded Childcare Unknown 08/10/2018 Employment Answer Date Recorded Employment Unknown 08/10/2018 Hunger Screening Answer Date Recorded Within the past 12 months we worried whether our food would run out before we got money to buy more. Never True 08/04/2022 Within the past 12 months th e food we bought just didn't last and we didn't have money to get more. Never True 08/04/2022 Purpose - Life Answer Date Recorded Purpose and direction in life Unknown Comments No Sex and Gender Information Value Date Recorded Sex Assigned at Not on file Legal Sex Female 11:59 AM EDT Gender Identity Not on file Sexual Orientation Not on file Last Filed Vital Signs Vital Sign Reading Time Taken Comments Blood Pressure 152/76 03/19/2023 10:08 AM EST Pulse 111 08/04/2022 2:23 PM EDT Temperature 37.1 C (98.7 F) 08/04/2022 2:23 PM EDT Respiratory Rate 18 08/04/2022 2:23 PM EDT Oxygen Saturation 97% 08/04/2022 2:23 PM EDT Inhaled Oxygen Concentration - - Weight 114.8 kg (253 lb) 03/19/2023 10:08 AM EST Height 157.5 cm (5' 2 ) 08/04/2022 2:23 PM EDT Body Mass Index 46.27 08/04/2022 2:23 PM EDT Plan of Treatment Health Maintenance Due Date Last Done Comments Depression Screening 1972 Tobacco Screening 1972 DTaP,Tdap and Td Vaccines (2 - Td or Tdap) 03/01/2016 03/01/2006 Zoster (Shingles) Vaccine (2 of 3) 11/22/2016 09/27/2016 COVID-19 Vaccine (5 2023-2 5 season) 2023 09/09/2021, 01/02/2021, 06/07/2020, Additional history exists Adult BMI Screening 03/19/2024 03/19/2023 Influenza Vaccine 10/30/2024 12/08/2022, , 11/26/2020, Additional history exists Colonoscopy 07/21/2027 07/20/2022, 06/30, 11/25/2018, Additional history exists Medical Devices Implanted Type Area Architectural Design Lecturer Device Identifier Shelf Expiration Date Model / Serial / Lot Tissue Alloderm Nonmesh 2x4cm - [id number] Implanted:Qty: 1 on 08/03/2016 by Ward Reveels MD PhD at [facility] Graft Right: Ear [employer] 04/01/2017 [id number] / NA / [id number] Tube Altaf Aeration Vent Repl [id number] - [id number] Implanted:Qty: 1 on 08/03/2016 by Ward Reveles MD PhD at [facility] Other Implant Right: Ear [employer] Radius App [id number] 05/13/2022 [id number] / NA / [id number] Explanted Type Area Architectural Design Lecturer Device Identifier Shelf Expiration Date Model / Serial / Lot Tube Altaf Aeration Vent Repl [id number] - Sna - [id number] Implanted:Qty: 1 Explanted:Qty: 1 on 08/03/2016 at [facility] Other Implant Right: Ear [employer] Radius App [id number] 08/12/2022 [id number] / NA / [id number] Procedures Procedure Name Priority Date/Time Associated Diagnosis Comments COLONOSCOPY 07/20/2022 9:58 AM EDT from Last 3 Months or Most Recently Relevant to Health Maintenance Results * Colonoscopy (07/20/2022 9:58 AM EDT) 07/20/2022 9:58 AM EDT Narrative PM CARDIOVASCULAR - 07/20/2022 10:24 AM EDT [facility] Patient Name: Kaylynn Talamantes Procedure Date No Time: 07/20/2022 CSN : [id number] Date of : 1960 Admit Type: Outpatient Age: 62 Room: [place] [address] Gender: Female Note Status: Finalized Attending MD: Conrado Knowles DO, Procedure: Colonoscopy Indications: High risk colon cancer surveillance: Personal history of colonic polyps Providers: Conrado Knowles DO Referring MD: Conrado Knowles DO Medicines: Propofol per Anesthesia Complications: No immediate complications. Procedure: After I obtained informed consent, the scope was passed under direct vision. Throughout the procedure, the patient's blood pressure, pulse, and oxygen saturations were monitored continuously. The [employer] [id number] #[id number] ADULT COLONOSCOPE was introduced through the anus and advanced to the cecum, identified by appendiceal orifice and ileocecal valve. The colonoscopy was performed without difficulty. The patient tolerated the procedure well. The quality of the bowel preparation was adequate to identify polyps greater than 5 mm in size. Findings: The perianal and digital rectal examinations were normal. Multiple small and large-mouthed diverticula were found in the sigmoid colon and descending colon. Five sessile polyps were found in the distal rectum, recto-sigmoid colon, mid sigmoid colon and mid transverse colon. The polyps were 2 to 6 mm in size. These polyps were removed with a hot snare. Resection and retrieval were complete. The exam was otherwise without abnormality on direct and retroflexion views. Estimated Blood Loss: Estimated blood loss: none. Impression: - Diverticulosis in the sigmoid colon and in the descending colon. - Five 2 to 6 mm polyps in the distal rectum, at the recto-sigmoid colon, in the mid sigmoid colon and in the mid transverse colon, removed with a hot snare. Resected and retrieved. - The examination was otherwise normal on direct and retroflexion views. Recommendation: - Discharge patient to home. - Patient has a contact number available for emergencies. The signs and symptoms of potential delayed complications were discussed with the patient. Return to normal activities tomorrow. Written discharge instructions were provided to the patient. - High fiber diet for the rest of the patient's life. - Repeat colonoscopy in 5 years for surveillance based on pathology results. - Return to my office PRN. Procedure Code(s): --- Professional --- 41821, Colonoscopy, flexible; with removal of tumor(s), polyp(s), or other lesion(s) by snare technique Diagnosis Code(s): --- Professional --- Z12.11, Encounter for screening for malignant neoplasm of colon Z86.010, Personal history of colonic polyps D12.8, Benign neoplasm of rectum D12.7, Benign neoplasm of rectosigmoid junction D12.5, Benign neoplasm of sigmoid colon D12.3, Benign neoplasm of transverse colon (hepatic flexure or splenic flexure) K57.30, Diverticulosis of large intestine without perforation or abscess without bleeding CPT copyright 2021 [employer] [place] [employer]. All rights reserved. The codes documented in this report are preliminary and upon contract designer review may be revised to meet current compliance requirements. DO Conrado Ocampo DO 07/20/2022 10:23:48 AM Number of Addenda: 0 Note Initiated On: 07/20/2022 9:58 AM Procedure Note Conrado Knowles DO - 07/20/2022 [facility] Patient Name: Kaylynn Talamantes Procedure Date No Time: 07/20/2022 CSN : [id number] Date of : 1960 Admit Type: Outpatient Age: 62 Room: [place] [address] Gender: Female Note Status: Finalized Attending MD: Conrado Knowles DO, Procedure: Colonoscopy Indications: High risk colon cancer surveillance: Personalhistory of colonic polyps Providers: Conrado Knowles DO Referring MD: Conrado Knowles DO Medicines: Propofol per Anesthesia Complications: No immediate complications. Procedure: After I obtained informed consent, the scope was passed under direct vision. Throughout theprocedure, the patient's blood pressure, pulse, and oxygen saturations were monitored continuously. [facility] [id number] #[id number] ADULT COLONOSCOPE was introduced through the anus and advanced to the cecum,identified by appendiceal orifice and ileocecal valve. The colonoscopy was performed without difficulty. The patient tolerated the procedure well. The qualityof the bowel preparation was adequate to identifypolyps greater than 5 mm in size. Findings: The perianal and digital rectal examinations were normal. Multiple small and large-mouthed diverticula were found in thesigmoid colon and descending colon. Five sessile polyps were found in the distal rectum, recto-sigmoid colon, mid sigmoid colon and mid transverse colon. The polyps were 2to 6 mm in size. These polyps were removed with a hot snare. Resectionand retrieval were complete. The exam was otherwise without abnormality on direct and retroflexion views. Estimated Blood Loss: Estimated blood loss: none. Impression: - Diverticulosis in the sigmoid colon and in the descending colon. - Five 2 to 6 mm polyps in the distal rectum, atthe recto-sigmoid colon, in the mid sigmoid colon andin the mid transverse colon, removed with a hot snare. Resected and retrieved. - The examination was otherwise normal on directand retroflexion views. Recommendation: - Discharge patient to home. - Patient has a contact number available for emergencies. The signs and symptoms of potential delayed complications were discussed with thepatient. Return to normal activities tomorrow. Written discharge instructions were provided to thepatient. - High fiber diet for the rest of the patient'slife. - Repeat colonoscopy in 5 years for surveillancebased on pathology results. - Return to my office PRN. Procedure Code(s): --- Professional --- 20116, Colonoscopy, flexible; with removal of tumor(s), polyp(s), or other lesion(s) by snare technique Diagnosis Code(s): --- Professional --- Z12.11, Encounter for screening for malignant neoplasm of colon Z86.010, Personal history of colonic polyps D12.8, Benign neoplasm of rectum D12.7, Benign neoplasm of rectosigmoid junction D12.5, Benign neoplasm of sigmoid colon D12.3, Benign neoplasm of transverse colon (hepatic flexure orsplenic flexure) K57.30, Diverticulosis of large intestine without perforation orabscess without bleeding CPT copyright 2021 [employer] [place] [employer]. All rights reserved. The codes documented in this report are preliminary and upon contract designer reviewmay be revised to meet current compliance requirements. DO Conrado Ocampo DO 07/20/2022 10:23:48 AM Number of Addenda: 0 Note Initiated On: 07/20/2022 9:58 AM Conrado Knowles DO GI PROCEDURE ORDERABLES Fin al Result PM CARDIOVASCULAR from Last 3 Months or Most Recently Relevant to Health Maintenance Insurance [employer] Care Teams Box Truck Owner Operator Relationship Specialty Start Date End Date Alma Mcdaniel MD PCP - General Family Medicine 06/30/16
--- OUTSIDE RECORDS SUMMARY | 2024-10-25 09:35 | XMS_ITS | Encounter Summary ---
Author Organization [facility] Address [address] [facility] [address] [place] [address] Care Team Providers Care Mold Cleaning And Storage Supervisor Name Role Phone Alma Mcdaniel MD Primary Care Provider [phone] Ayse Carmona FACILITY SUPERVISOR Unavailable [phone] Alma Mcdaniel MD Unavailable Alexandria Disla RN Unavailable [phone] Sheldon Durham DO Unavailable [phone] Zoraida Rodriguez NP Unavailable [phone] Encounter Details Date Type Department Care Team (Late st Contact Info) Description 06/05/2024 Orders Only [facility] Family Medicine [address] [place] [address] Zoraida Rodriguez NP [address], [place] [id number] Erythrocytosis Social History Tobacco Use Types Packs/Day Years [...] week 10/15/2023 How often do you attend [facility] or [facility] services? More than 4 times per year 10/15/2023 Do you belong to any clubs o r organizations such as zoroastrianism groups, unions, fraternal or athletic groups, or [...] Recorded Patient Health Questionnaire-2 Score 0 08/05/2022 [facility] - Occupational Stress [...] place to sleep or slept in a alf (including now)? No 08/05/2022 Housing Stability Vital Sign Answer August e Recorded In the last 12 months, was t here a time when you were not able to pay the mortgage or rent on time? No 10/15/2023 In the past 12 months, how m any times have you moved where you were living? 0 10/15/2023 At any time in the past 12 m [facility], were you homeless or living in a alf (including now)? No 10/15/2023 Comments Unknown Sex [...] Visit [facility] [address] [place] [address] Sheldon Durham DO [address] [place] [address] 11/20/2024 8:00 AM EDT Office Visit [facility] [address] [facility] [place] [address] Zoraida Rodriguez NP [address] [facility] [place], [place] [id number] documented as of this encounter Procedures Procedure Name Priority Date/Time Associated Diagnosis Comments AMB REFERRAL TO HEMATOLOGY Routine 06/05/2024 11:31 AM EDT Erythrocytosis documented in this encounter Results * Ambulatory referral to Hematology (06/05/2024 11:31 AM EDT) Zoraida Rodriguez NP OUTPATIENT REFERRAL ORDERABLES Final Result documented in this encounter Visit Diagnoses Diagnosis Erythrocytosis Polycythemia, secondary documented in this encounter Care Teams Mold Cleaning And Storage Supervisor Relationship Specialty Start Date End Date Alma Mcdaniel MD [address] [facility] [place] [address] PCP - General Family Medicine 08/05/22 Alma Mcdaniel MD [address] [facility] [place] [address] PCP - Medical [employer] 06/27/18 10/16/24 Ayse Carmona NP [address] [facility] [place] [address] Nurse Practitioner Family Medicine 08/05/22 08/22/24 Alexandria Disla, [place] [address] [facility] [place] [address] Registered Nurse Family Medicine 10/15/23 Sheldon Durham DO [address] [place] [address] Otolaryngology 03/03/24 Zoraida Rodriguez NP [address] [place] [address] Nurse Practitioner Family Medicine 08/23/24 documented as of this encounter
--- OUTSIDE RECORDS SUMMARY | 2024-10-25 09:35 | XMS_ITS | Encounter Summary ---
Author Organization [facility] Address [address] [facility] [place] [address] Care Team Providers Care Metal Fabricating Supervisor Name Role Phone Alma Mcdaniel MD Primary Care Provider [phone] Ayse Carmona TURF MANAGER Unavailable [phone] Alma Mcdaniel MD Unavailable Alexandria Disla RN Unavailable [phone] Sheldon Durham DO Unavailable [phone] Zoraida Rodriguez TURF MANAGER Unavailable [phone] Encounter Details Date Type Department Care Team (Late st Contact Info) Description 07/10/2024 Abstract [facility] Family Medicine [address] [place] [address] Alma Mcdaniel MD [address] [place], [place] [id number] Social History Tobacco Use Types Packs/Day Years [...] week 10/15/2023 How often do you attend [facility] or [employer] services? More than 4 times per year 10/15/2023 Do you belong to any clubs o r organizations such as jew groups, unions, fraternal or athletic groups, or [...] Recorded Patient Health Questionnaire-2 Score 0 08/05/2022 [facility] Occupat ional Health - Occupational Stress [...] to sleep or slept in a senior living (including now)? No 08/05/2022 Housing Stability Vital Sign Answer August e Recorded In the last 12 months, was t here a time when you were not able to pay the mortgage or rent on time? No 10/15/2023 In the past 12 months, how m any times have you moved where you were living? 0 10/15/2023 At any time in the past 12 m [facility], were you homeless or living in a senior living (including now)? No 10/15/2023 Comments Unknown Sex [...] Visit [facility] [address] [place] [address] Sheldon Durham DO [address] [place] [address] 11/20/2024 8:00 AM EDT Office Visit [facility] [address] [place] [id number] Zoraida Rodriguez NP [address] [place] [address] documented as of this encounter Goals Goal [...] documented as of this encounter Care Teams Metal Fabricating Supervisor Relationship Specialty Start Date End Date Alma Mcdaniel MD [address] [place] [address] PCP - General Family Medicine 08/05/22 Alma Mcdaniel MD [address] [place] [address] PCP - Medical [employer] 06/27/18 10/16/24 Ayse Carmona NP [address] [place] [address] Nurse Practitioner Family Medicine 08/05/22 08/22/24 Alexandria Disla RN [address] [facility] [place] [place] [address] Registered Nurse Family Medicine 10/15/23 Sheldon Durham DO [address] [place] [address] Otolaryngology 03/03/24 Zoraida Rodriguez NP [address] [place] [address] Nurse Practitioner Family Medicine 08/23/24 documented as of this encounter
--- OUTSIDE RECORDS SUMMARY | 2024-10-25 09:35 | XMS_ITS | Encounter Summary ---
Author Organization [facility] Address [address] [place] [address] Care Team Providers Care Exhibit Builder Name Role Phone Alma Mcdaniel MD Primary Care Provider [phone] Alma Mcdaniel MD Unavailable Alexandria Disla RN Unavailable [phone] Sheldon Durham DO Unavailable [phone] Zoraida Rodriguez NP Unavailable [phone] Encounter Details Date Type Department Care Team (Late st Contact Info) Description 09/12/2024 External Result Encounter [facility] External Department Unsolicited Sheldon Durham, DO [address] [place] [address] Social History Tobacco Use Types Packs/Day Years [...] often do you attend chur ch or gnosticist services? More than 4 times per year 10/15/2023 Do you belong to any clubs o r organizations such as restorationism groups, unions, fraternal or athletic groups, or [...] Recorded Patient Health Questionnaire-2 Score 0 08/05/2022 [facility] of Occupat ional Health - Occupational [...] place to sleep or slept in a mcfp (including now)? No 08/05/2022 Housing Stability Vital [...] time in the past 12 m [facility], were you homeless or living in a mcfp (including now)? No 10/15/2023 Comments Unknown Sex and Gender Information Value Date Recorded Sex Assigned at Not on file Legal Sex Female 7:23 PM EDT Gender Identity Not on file Sexual Orientation Not on file documented as of this encounter Plan of Treatment Upcoming Encounters Date Type Department Care Team (Late st Contact Info) Description 10/26/2024 10:45 AM EDT Office Visit [facility] [address] [place] [address] Sheldon Durham DO [address] [place] [address] 11/20/2024 8:00 AM EDT Office Visit [facility] [address] [place] [address] Zoraida Rodriguez NP [address] [place], [place] [phone] documented as of this encounter Goals Goal Patient Goal Type Associated Problems Recent Progress Patient-Stated? Author Help patient manage antidepressant medication Care Plan Patient on antidepressant monitoring plan No Alma Mcdaniel MD Baseline PHQ-9 Care Plan Baseline PHQ-9 No Alma Mcdaniel MD documented as of this encounter Procedures Procedure Name Priority Date/Time Associated Diagnosis Comments ECG 12-LEAD 09/12/2024 11:21 AM EDT documented in this encounter Results * ECG 12 lead (09/12/2024 11:21 AM EDT) 09/12/2024 11:2 1 AM EDT [facility] - 09/12/2024 2:03 PM EDT [facility] Main [address] [address] Electrocardiograph Report Signed Patient: Kaylynn Talamantes MR#: [id number] : 1960 Acct:[id number] Age/Sex: 64 / F ADM Date: 09/12/24 Loc: Room: Type: [facility] Attending Dr: Sheldon Durham DO Ordering Provider: Sheldon Durham DO Date of Service: 09/12/24 ECG/ECG 12 lead ECG: surgery 09/20 Copies to: Test Reason : Blood Pressure : */* mmHG Vent. Rate : 76 BPM Atrial Rate : 76 BPM P-R Int : 136 ms QRS Dur : 78 ms QT Int : 390 ms P-R-T Axes : 38 98 51 degrees QTcB Int : 438 ms Normal sinus rhythm Rightward axis Borderline ECG When compared with ECG of 03-Oct-2019 15:53, No significant change was found Confirmed by Joel Barlow ([id number]) on 09/12/2024 2:02:51 PM Referred By: Electronically Signed By: Joel Barlow Transcribed By: MUS Signed By Joel Barlow MD 09/12/24 1402 Procedure Note Mary Barlow MD - 09/12/2024 [facility] Main [place] [address] [place], [place] [id number] Electrocardiograph Report Signed Patient: Kaylynn Talamantes DMR#: [id number] : 2Acct:[id number] Age/Sex: 64 / FADM Date: 09/12/24 Loc: Room:Type: [facility] Attending Dr: Sheldon Durham DO Ordering Provider: Sheldon Durham DO Date of Service: 09/12/24 ECG/ECG 12 lead ECG: surgery 09/20 Copies to: Test Reason : Blood Pressure : */* mmHG Vent. Rate : 76 BPM Atrial Rate : 76 BPM P-R Int : 136 ms QRS Dur : 78 ms QT Int : 390 ms P-R-T Axes : 38 98 51 degrees QTcB Int : 438 ms Normal sinus rhythm Rightward axis Borderline ECG When compared with ECG of 03-Oct-2019 15:53, No significant change was found Confirmed by Joel Barlow ([id number]) on 09/12/2024 2:02:51 PM Referred By: Electronically Signed By: Joel Barlow Transcribed By: MUS Signed By Joel Barlow MD 09/12/24 1402 us Sheldon Durham DO ECG ORDERABLES Final Resul t [address] [address], documented in this encounter Visit Diagnoses Not on filedocumented in this encounter Additional Health Concerns Active Problems Noted Date Diagnosed Date Patient on antidepressant monitoring plan 2024 Baseline PHQ-9 07/04/2024 documented as of this encounter Care Teams Exhibit Builder Relationship Specialty Start Date End Date Alma Mcdaniel MD [address] [place], [place] [id number] PCP - General Family Medicine 08/05/22 Alma Mcdaniel MD [address] [place], [place] [address] PCP - Medical [place] [employer] 06/27/18 10/16/24 Alexandria Disla, LAYTON [address] [place], [place] [address] Registered Nurse Family Medicine 10/15/23 Sheldon Durham DO [address] [place] [address] Otolaryngology 03/03/24 Zoraida Rodriguez NP [address] [place], [place] [address] Nurse Practitioner Family Medicine 08/23/24 documented as of this encounter
--- OUTSIDE RECORDS SUMMARY | 2024-10-25 09:36 | XMS_ITS | Encounter Summary ---
Author Organization [facility] Address [address] [place] [address] Care Team Providers Care V Belt Inspector Name Role Phone Alma Mcdaniel MD Primary Care Provider [phone] Ayse Carmona THERMOMETER MAKER Unavailable [phone] Alma Mcdaniel MD Unavailable Alexandria Disla RN Unavailable [phone] Sheldon Durham DO Unavailable [phone] Zoraida Rodriguez THERMOMETER MAKER Unavailable [phone] Encounter Details Date Type Department Care Team (Late Contact Info) Description 11/14/2018 [facility] [address] [place] [phone] Perla Caruso, [facility] [address] [place] [address] Social History Tobacco Use Types Packs/Day Years Used Date Smoking Tobacco: Never Assessed Comments Unknown Sex and Gender Information Value Date Recorded Sex Assigned at Not on file Legal Sex Female 7:23 PM EDT Gender Identity Not on file Sexual Orientation Not on file documented as of this encounter Plan of Treatment Upcoming Encounters Date Type Department Care Team (Late Contact Info) Description 10/26/2024 10:45 AM EDT Office Visit [facility] [address] [place] [address] Sheldon Durham DO [address] [place] [address] 11/20/2024 8:00 AM EDT [facility] [address] [facility] [place] [address] Zoraida Rodriguez NP [address] [facility] [place] [address] documented as of this encounter Visit Diagnoses Not on filedocumented in this encounter Care Teams V Belt Inspector Relationship Specialty Start Date End Date Alma Mcdaniel MD [facility] [place] [address] PCP - General Family Medicine 08/05/22 Alma Mcdaniel MD [address] [facility] [place] [address] PCP - Medical [place] [employer] 06/27/18 10/16/24 Ayse Carmona NP [facility] [place] [address] Nurse Practitioner Family Medicine 08/05/22 08/22/24 Alexandria Disla, RN [address] [facility] [place] [address] Registered Nurse Family Medicine 10/15/23 Sheldon Durham DO [address] [place] [address] Otolaryngology 03/03/24 Zoraida Rodriguez NP [facility] [place] [address] Nurse Practitioner Family Medicine 08/23/24 documented as of this encounter
--- OUTSIDE RECORDS SUMMARY | 2024-10-25 09:36 | XMS_ITS | Encounter Summary ---
Author Organization [facility] Address [address] [place] [address] Care Team Providers Care Eap Clinician Name Role Phone Alma Mcdaniel MD Primary Care Provider [phone] Ayse Carmona UNDERWRITING TECHNICIAN Unavailable [phone] Alma Mcdaniel MD Unavailable Alexandria Disla RN Unavailable Sheldon Durham DO Unavailable [phone] Zoraida Rodriguez NP Unavailable [phone] Encounter Details Date Type Department Care Team (Late st Contact Info) Description 09/15/2023 Orders Only [facility] Family Medicine [address] [place] [address] Stephanie Pelayo NP Social History Tobacco Use Types Packs/Day Years Used Date Smoking Tobacco: Every Day Cigarettes 1 40 Smokeless Tobacco: Never Alcohol Use Standard Drinks/Week Comments Not Currently 0 (1 standard drink = 0.6 oz pur e alcohol) No alcohol since 2013 Humiliation, Afraid, Rape, and Kick questionnair e [...] neighbors? More than three times a week 08/05/2022 How often do you get togethe r with friends or relatives? Three times a week 08/05/2022 How often do you attend chur or yarsani services? 1 to 4 times per year 08/05/2022 Do you belong to any clubs o r organizations such as catholic groups, unions, fraternal or athletic groups, or school groups? No 08/05/2022 How often do you attend meet ings of the clubs or organizations you belong to? Never 08/05/2022 Are you , , di vorced, , never , or living with a partner? 08/05/2022 AUDIT-C Answer Date Recorded Q1: How often do you have a drink containing alcohol? Never 08/05/2022 Q2: How many drinks containi ng alcohol do you have on a typical day when you are drinking? Patient does not drink Q3: How often do you have si x or more drinks on one occasion? Never 08/05/2022 Overall Financial Resource Strain (CARDIA) Answe r Date Recorded How hard is it for you to pa y for the very basics like food, housing, medical care, and heating? Somewhat hard 08/05/2022 PHQ-2 Answer Date Recorded Patient Health Questionnaire-2 Score 0 08/05/2022 [facility] [place] of Occupat ional Health - Occupational Stress Questionnaire Answer Date Recorded Do you feel stress - tense, restless, nervous, or anxious, or unable to sleep at night because your mind is troubled all the time - these days? To some extent 08/05/2022 Exercise Vital Sign Answer Date Recorde d On average, how many days pe r week do you engage in moderate to strenuous exercise (like a brisk walk)? 3 days 08/05/2022 On average, how many minutes do you engage in exercise at this level? 20 min 08/05/2022 Hunger Vital Sign Answer Date Recorded Within the past 12 months, y ou worried that your food would run out before you got the money to buy more. Never true 08/06/19 23 Within the past 12 months, t he food you bought just didn't last and you didn't have money to get more. Never true 08/05/2022 PRAPARE - Transportation Answer Date Re corded In the past 12 months, has l ack of transportation kept you from medical appointments or from getting medications? No 08/2022 In the past 12 months, has l ack of transportation kept you from meetings, work, or from getting things needed for daily living? No 08/05/2022 Housing Stability Vital Sign Answer [...] in a mcfp (including now)? No 08/05/2022 Comments Unknown Sex and Gender Information Value Date Recorded Sex Assigned at Not on file Legal Sex Female 7:23 PM EDT Gender Identity Not on file Sexual Orientation Not on file documented as of this encounter Plan of Treatment Upcoming Encounters Date Type Department Care Team (Late st Contact Info) Description 10/26/2024 10:45 AM EDT Office Visit [facility] [address] [place] [address] Sheldon Durham, [address] [place] [address] 11/20/2024 8:00 AM EDT Office Visit [facility] [address] [facility] [place] [address] Zoraida Rodriguez NP [address] [facility] [place] [address] documented as of this encounter Visit Diagnoses Not on filedocumented in this encounter Care Teams Eap Clinician Relationship Specialty Start Date End Date Alma Mcdaniel MD [address] [facility] [place] [address] PCP - General Family Medicine 08/05/22 Alma Mcdaniel MD [address] [place] [address] PCP - Medical [place] [employer] 06/27/18 10/16/24 Ayse Carmona NP [address] [place] [address] Nurse Practitioner Family Medicine 08/05/22 08/22/24 Alexandria Disla, LAYTON [address] [place] [address] Registered Nurse Family Medicine 10/15/23 Sheldon Durham DO [address] [place] [address] Otolaryngology 03/03/24 Zoraida Rodriguez NP [address] [place] [address] Nurse Practitioner Family Medicine 08/23/24 documented as of this encounter
--- OUTSIDE RECORDS SUMMARY | 2024-10-25 09:36 | XMS_ITS | Encounter Summary ---
Author Organization [facility] Address [address] [place] [address] Care Team Providers Care Pillowcase Sewer Name Role Phone Alma Mcdaniel MD Primary Care Provider [phone] Alma Mcdaniel MD Unavailable Alexandria Disla RN Unavailable [phone] Sheldon Durham DO Unavailable [phone] Zoraida Rodriguez NP Unavailable [phone] Encounter Details Date Type Department Care Team (Late st Contact Info) Description 10/12/2024 Telephone [facility] [address] [place] [address] Sheldon Durham DO [address] [place] [address] Social History Tobacco Use Types [...] week 10/15/2023 How often do you attend [facility] or congregational services? More than 4 times per year [...] Recorded Patient Health Questionnaire-2 Score 0 08/05/2022 [facility] of Occupat ional Health - [...] place to sleep or slept in a [place] (including now)? No 08/05/2022 Housing Stability Vital [...] in the past 12 m [facility], were you homeless or living in a [place] (including now)? No 10/15/2023 Comments Unknown Sex and Gender Information Value Date Recorded Sex Assigned at Not on file Legal Sex Female 7:23 PM EDT Gender Identity Not on file Sexual Orientation Not on file documented as of this encounter Miscellaneous Notes * Addendum Note - Fouzia Eve - 10/13/2024 3:25 PM EDTAddended by: FOUZIA PRADO on: 10/13/2024 03:25 PM Modules accepted: Orders * Telephone Encounter - Fouzia Eve - 10/12/2024 8:59 AM EDT Patient sent message for refill on drops documented in this encounter Plan of Treatment Upcoming Encounters Date Type Department Care Team (Late st Contact Info) Description 10/26/2024 10:45 AM EDT Office Visit [facility] [address] [place] [address] Sheldon Durham DO [address] [place] [address] 11/20/2024 8:00 AM EDT Office Visit [facility] [address] [place] [address] Zoraida Rodriguez NP [address] [place] [address] documented as of this encounter Goals Goal Patient Goal Type Associated Problems Recent Progress Patient-Stated? Author Help patient manage antidepressant medication Care Plan Patient on antidepressant monitoring plan No Alma Mcdaniel MD Baseline PHQ-9 Care Plan Baseline PHQ-9 No Alma Mcdaniel MD documented as of this encounter Visit Diagnoses Diagnosis Otalgia of both ears documented in this encounter Additional Health Concerns Active Problems Noted Date Diagnosed Date Patient on antidepressant monitoring plan 2024 Baseline PHQ-9 07/04/2024 documented as of this encounter Care Teams Pillowcase Sewer Relationship Specialty Start Date End Date Alma Mcdaniel MD [address] [place], [place] [phone] PCP - General Family Medicine 08/05/22 Alma Mcdaniel MD [address] [facility] [place] [address] PCP - Medical [place] [employer] 06/27/18 10/16/24 Alexandria Disla, RN [address] [place] [place], [place] [address] Registered Nurse Family Medicine 10/15/23 Sheldon Durham DO [address] [place] [address] Otolaryngology 03/03/24 Zoraida Rodriguez NP [address] [facility] [address] [facility] [address] Nurse Practitioner Family Medicine 08/23/24 documented as of this encounter
--- OUTSIDE RECORDS SUMMARY | 2024-10-25 09:36 | XMS_ITS | Encounter Summary ---
Author Organization [facility] Address [address] [facility] [[email or web address] [place] [address] Care Team Providers Care Environmental Program Manager Name Role Phone Alma Mcdaniel MD Primary Care Provider [phone] Ayse Carmona MECHANICAL SYSTEMS CONTROL ENGINEER Unavailable [phone] Alma Mcdaniel MD Unavailable Alexandria Disla RN Unavailable [phone] Sheldon Durham DO Unavailable [phone] Zoraida Rodriguez MECHANICAL SYSTEMS CONTROL ENGINEER Unavailable [phone] Encounter Details Date Type Department Care Team (Late st Contact Info) Description 01/04/2024 Orders Only [facility] Family Medicine [address] [place] [address] Alma Mcdnaiel MD [address] [place], [place] [address] Social History Tobacco Use Types Packs/Day Years [...] week 10/15/2023 How often do you attend [facility] or yazidi services? More than 4 times per year 10/15/2023 Do you belong to any clubs o r organizations such as evangelical groups, unions, fraternal or athletic groups, or [...] Recorded Patient Health Questionnaire-2 Score 0 08/05/2022 [facility] [place] of Occupat ional Health - Occupational Stress [...] No 10/15/2023 Housing Stability Vital Sign Answer Auugst e Recorded In the last 12 months, [...] place to sleep or slept in a retirement (including now)? No 08/05/2022 Housing Stability Vital Sign Answer August e Recorded In the last 12 months, was t here a time when you were not able to pay the mortgage or rent on time? No 10/15/2023 In the past 12 months, how m any times have you moved where you were living? 0 10/15/2023 At any time in the past 12 m [facility], were you homeless or living in a retirement (including now)? No 10/15/2023 Comments Unknown Sex [...] Office Visit [facility] [address] [place] [address] Sheldon Durham DO [address] [place] [address] 11/20/2024 8:00 AM EDT Office Visit [facility] [address] [place] [address] Zoraida Rodriguez NP [address] [place], [place] [address] documented as of this encounter Procedures Procedure Name Priority Date/Time Associated Diagnosis Comments DIABETIC RETINOPATHY SCREENING - OU - BOTH EYES Routine 01/08/2023 2:05 PM EST documented in this encounter Results * Diabetic Retinopathy Screening - OU - Both Eyes (01/08/2023 2:05 PM EST) Anatomical Region Laterality Modality Head Other Alma Mcdaniel MD OPHTH PHOTOGRAPHY Final Result documented in this encounter Visit Diagnoses Not on filedocumented in this encounter Care Teams Environmental Program Manager Relationship Specialty Start Date End Date Alma Mcdaniel MD [address] [place] [address] PCP - General Family Medicine 08/05/22 Alma Mcdaniel MD [address] [place] [address] PCP - Medical [place] [employer] 06/27/18 10/16/24 Ayse Carmona NP [address] [place] [address] Nurse Practitioner Family Medicine 08/05/22 08/22/24 Alexandria Disla, RN [address] [facility] [place] [address] Registered Nurse Family Medicine 10/15/23 Sheldon Durham DO [address] [place] [address] Otolaryngology 03/03/24 Zoraida Rodriguez NP [address] [place] [address] Nurse Practitioner Family Medicine 08/23/24 documented as of this encounter
--- OUTSIDE RECORDS SUMMARY | 2024-10-25 09:36 | XMS_ITS | Encounter Summary ---
Author Organization [facility] Address [address] [place] [address] Care Team Providers Care International Marketing Manager Name Role Phone lAma Mcdaniel MD Primary Care Provider [phone] Ayse Carmona APPLIANCE WORKER Unavailable [phone] Alma Mcdaniel MD Unavailable Alexandria Disla RN Unavailable [phone] Sheldon Durham DO Unavailable [phone] Zoraida Rodriguez APPLIANCE WORKER Unavailable [phone] Encounter Details Date Type Department Care Team (Late Contact Info) Description 09/26/2018 Abstract [facility] [address] [place] [phone] Perla Caruso, [facility] [address] [place] [address] Social History Tobacco Use Types Packs/Day Years [...] Visit [facility] [address] [place] [address] Sheldon Durham DO [address] [place] [address] 11/20/2024 8:00 AM EDT [facility] [address] [facility] [place] [address] Zoraida Rodriguez NP [address] [facility] [place] [address] documented as of this encounter Visit Diagnoses Not on filedocumented in this encounter Care Teams International Marketing Manager Relationship Specialty Start Date End Date Alma Mcdaniel MD [facility]9 [facility] [place] [address] PCP - General Family Medicine 08/05/22 Alma Mcdaniel MD [address] [facility] [place] [address] PCP - Medical [place] [employer] 06/27/18 10/16/24 Ayse Carmona NP [facility]9 [facility] [place] [address] Nurse Practitioner Family Medicine 08/05/22 08/22/24 Alexandria Disla, RN [address] [facility] [place] [address] Registered Nurse Family Medicine 10/15/23 Sheldon Durham DO [address] [place] [address] Otolaryngology 03/03/24 Zoraida Rodriguez NP [facility] [place] [address] Nurse Practitioner Family Medicine 08/23/24 documented as of this encounter
--- OUTSIDE RECORDS SUMMARY | 2024-10-25 09:36 | XMS_ITS | Encounter Summary ---
Author Organization [facility] Address [address] [facility] [place] [address] Care Team Providers Care Lead Investigator Name Role Phone Alma Mcdaniel MD Primary Care Provider [phone] Ayse Carmona MACHINE MAINTENANCE TECHNICIAN Unavailable [phone] Alma Mcdaniel MD Unavailable Alexandria Disla RN Unavailable [phone] Sheldon Durham DO Unavailable [phone] Zoraida Rodriguez MACHINE MAINTENANCE TECHNICIAN Unavailable [phone] Encounter Details Date Type Department Care Team (Late st Contact Info) Description 08/07/2023 Abstract [facility] Family Medicine [address] [place] [address] Alma Mcdaniel MD [address] [place], [place] [phone] Social History Tobacco Use Types Packs/Day Years [...] How often do you attend chur or oriental orthodox services? 1 to 4 times per year 08/05/2022 Do you belong to any clubs o r organizations such as baptist groups, unions, fraternal or athletic groups, or [...] Recorded Patient Health Questionnaire-2 Score 0 08/05/2022 [facility] [place] of Occupat ional Health - Occupational Stress [...] place to sleep or slept in a assisted (including now)? No 08/05/2022 Comments Unknown Sex [...] Visit [facility] [address] [place] [address] Sheldon Durham DO [address] [place] [address] 11/20/2024 8:00 AM EDT Office Visit [facility] [address] [place] [facility] [place] [address] Zoraida Rodriguez NP [address] [facility] [place] [address] documented as of this encounter Visit Diagnoses Not on filedocumented in this encounter Care Teams Lead Investigator Relationship Specialty Start Date End Date Alma Mcdaniel MD [address] [facility] [place] [address] PCP - General Family Medicine 08/05/22 Alma Mcdaniel MD [address] [place] [address] PCP - Medical [place] [employer] 06/27/18 10/16/24 Ayse Carmona NP [address] [place] [address] Nurse Practitioner Family Medicine 08/05/22 08/22/24 Alexandria Disla, L[place]TON [address] [place] [address] Registered Nurse Family Medicine 10/15/23 Sheldon Durham DO [address] [place] [address] Otolaryngology 03/03/24 Zoraida Rodriguez NP [address] [place] [address] Nurse Practitioner Family Medicine 08/23/24 documented as of this encounter
--- OUTSIDE RECORDS SUMMARY | 2024-10-25 09:36 | XMS_ITS | Encounter Summary ---
Author Organization [facility] Address [address] [place] [address] Care Team Providers Care Yeast Culture Operator Name Role Phone Alma Mcdaniel MD Primary Care Provider [phone] Ayse Carmona INKER Unavailable [phone] Alma Mcdaniel MD Unavailable Alexandria Disla RN Unavailable [phone] Sheldon Durham DO Unavailable [phone] Zoraida Rodriguez INKER Unavailable [phone] Encounter Details Date Type Department Care Team (Late Contact Info) Description 07/24/2021 Abstract [facility] [address] [place] [phone] Perla Caruso, [facility] [address] [place] [address] Social History Tobacco Use Types Packs/Day Years Used Date Smoking Tobacco: Never Assessed Comments Unknown Sex and Gender Information Value Date Recorded Sex Assigned at Not on file Legal Sex Female 7:23 PM EDT Gender Identity Not on file Sexual Orientation Not on file documented as of this encounter Plan of Treatment Upcoming Encounters Date Type Department Care Team ([facility] Contact Info) Description 10/26/2024 10:45 AM EDT Office Visit [facility] [address] [place] [address] Sheldon Durham DO [address] [place] [address] 11/20/2024 8:00 AM EDT [facility] [address] [facility] [place] [address] Zoraida Rodriguez NP [address] [facility] [place] [address] documented as of this encounter Visit Diagnoses Not on filedocumented in this encounter Care Teams Yeast Culture Operator Relationship Specialty Start Date End Date Alma Mcdaniel MD [facility] [facility] [place] [address] PCP - General Family Medicine 08/05/22 Alma Mcdaniel MD [address] [facility] [place] [address] PCP - Medical [place] [employer] 06/27/18 10/16/24 Ayse Carmona NP [address] [facility] [place] [address] Nurse Practitioner Family Medicine 08/05/22 08/22/24 Alexandria Disla, RN [address] [place] [address] Registered Nurse Family Medicine 10/15/23 Sheldon Durham DO [address] [place] [address] Otolaryngology 03/03/24 Zoraida Rodriguez NP [address] [place] [address] Nurse Practitioner Family Medicine 08/23/24 documented as of this encounter
--- OUTSIDE RECORDS SUMMARY | 2024-10-25 09:36 | XMS_ITS | Encounter Summary ---
Author Organization [facility] Healthcare Address [address] [facility] [address] [place] [address] Care Team Providers Care Communications Advisor Name Role Phone Alma Mcdaniel MD Primary Care Provider [phone] Alexandria Disla RN Unavailable [phone] Sheldon Durham DO Unavailable [phone] Zoraida Rodriguez NP Unavailable [phone] Encounter Details Date Type Department Care Team (Late st Contact Info) Description 10/19/2024 Abstract [facility] Family Medicine [address] [place] [address] Alma Mcdaniel MD [address] [employer], [place] [address] Social History Tobacco Use Types Packs/Day Years [...] often do you attend chur ch or advent services? More than 4 times per year 10/15/2023 Do you belong to any clubs o r organizations such as orthodox groups, unions, fraternal or athletic groups, or [...] Recorded Patient Health Questionnaire-2 Score 0 08/05/2022 [facility] - Occupational [...] the past 12 m [facility], were you homeless or living in [...] [facility] [address] [place] [phone] Sheldon Durham DO [address] [place] [address] 11/20/2024 8:00 AM EDT Office Visit [facility] [address] [place] [address] Zoraida Rodriguez NP [address] [place] [address] documented as of this encounter Goals Goal [...] documented as of this encounter Care Teams Communications Advisor Relationship Specialty Start Date End Date Alma Mcdaniel MD [address] [place] [address] PCP - General Family Medicine 08/05/22 Alexandria Disla, [place] [address] [place] [address] Registered Nurse Family Medicine 10/15/23 Sheldon Durham DO [address] [place] [address] Otolaryngology 03/03/24 Zoraida Rodriguez NP [address] [place] [address] Nurse Practitioner Family Medicine 08/23/24 documented as of this encounter
--- OUTSIDE RECORDS SUMMARY | 2024-10-25 09:36 | XMS_ITS | Clinical Summary ---
Author Organization [facility] Address [address], [address] [place] [address] Care Team Providers Care Programmer Or Analyst Name Role Phone Alma Mcdaniel MD Primary Care Provider [phone] Allergies Active Allergy Reactions Criticality Noted Date Comments Acyclovir Other (See Comments) 04/30/2016 Horrible headaches, cannot hear Trypsin-Adams Oil-Elk Balsam Hives 04/30/2016 Medications pantoprazole (PROTONIX) 20 MG tablet Take 20 mg by mouth daily Active lisinopril (PRINIVIL;ZESTR IL) 20 MG tablet Take 20 mg by mouth daily Active levothyroxine (SYNTHROID) 50 MCG tablet Take 50 mcg by mouth Daily Active atorvastatin (LIPITOR) 20 MG tablet Take 20 mg by mouth daily Active doxycycline hyclate (VIBRAMYCIN) 100 MG capsule Take 100 mg by mouth 2 times daily Active zolpidem (AMBIEN) 10 MG tablet Take by mouth nightly as needed for Sleep Active LORazepam (ATIVAN) 1 MG tablet Take 1 mg by mouth every 6 hours as needed for Anxiety Active Social History Tobacco Use Types Packs/Day Years Used Date Smoking Tobacco: Every Day Smokeless Tobacco: Never Alcohol Use Standard Drinks/Week Comments No 0 (1 standard drink = 0.6 oz pur e alcohol) Comments Unknown Sex and Gender Information Value Date Recorded Sex Assigned at Not on file Legal Sex Female 8:56 AM EST Gender Identity Not on file Sexual Orientation Not on file Last Filed Vital Signs Vital Sign Reading Time Taken Comments Blood Pressure 152/87 04/30/2016 8:16 AM EST Pulse 86 04/30/2016 8:16 AM EST Temperature - - Respiratory Rate 16 04/30/2016 8:16 AM EST Oxygen Saturation - - Inhaled Oxygen Concentration - - Weight 93 kg (205 lb) 04/30/2016 8:16 AM EST pat ient stated Height 157.5 cm (5' 2 ) 04/30/2016 8:16 AM EST p atient stated Body Mass Index 37.49 04/30/2016 8:16 AM EST Plan of Treatment Health Maintenance Due Date Last Done Comments Lipids 1971 Depression Screen 1973 HIV screen 1976 Colonoscopy 2006 Colorectal Cancer Screen 2006 FIT/FOBT: Average risk 2006 Fecal-DNA (Cologuard): Average risk 2006 Sigmoidoscopy/CT colonography 2006 Pneumococcal 50+ years Vaccine (1 of 1 - PCV) 2011 DTaP/Tdap/Td vaccine (2 - Td or Tdap) 03/01/2016 03/01/2006 Shingles vaccine (2 of 3) 11/22/2016 09/27/2016 Flu vaccine (#1) 09/29/2024 12/02/2023, 11/2022, 12/13/2021, Additional history exists Breast cancer screen 12/16/2025 12/17/2023, 10/10/2021, 01/29/2020, Additional history exists Respiratory Syncytial Virus (RSV) or age 60 yrs+ (1 - 1-dose 75+ series) 2036 COVID-19 Vaccine Completed 12/02/2023 Hepatitis C screen Completed 07/17/2024 Hepatitis A vaccine Aged Out No longe r eligible based on patient's age to complete this topic Hepatitis B vaccine Aged Out No longe r eligible based on patient's age to complete this topic Hib vaccine Aged Out No longer eligi ble based on patient's age to complete this topic Meningococcal (ACWY) vaccine Aged Out No longer eligible based on patient's age to complete this topic Meningococcal B vaccine Aged Out No l onger eligible based on patient's age to complete this topic Polio vaccine Aged Out No longer elig ible based on patient's age to complete this topic Care Teams Programmer Or Analyst Relationship Specialty Start Date End Date Alma Mcdaniel MD [address] [place] [address] PCP - General 04/30/16
--- OUTSIDE RECORDS SUMMARY | 2024-10-25 09:36 | XMS_ITS | Encounter Summary ---
Author Organization [facility] Address [address] [place] [address] Care Team Providers Care Chief Operating Officer Name Role Phone Alma Mcdaniel MD Primary Care Provider [phone] Ayse Carmona BLOW MOLD OPERATOR Unavailable [phone] Alma Mcdaniel MD Unavailable Alexandria Disla RN Unavailable [phone] Sheldon Durham DO Unavailable [phone] Zoraida Rodriguez BLOW MOLD OPERATOR Unavailable [phone] Reason for Visit * Reason Onset Date Comments Med Refill 03/18/2023 Encounter Details Date Type Department Care Team (Late st Contact Info) Description 03/18/2023 [facility]ill [facility] [address] [place] [address] Alma Mcdaniel MD [address] [place], [place] [phone] Primary insomnia Social History Tobacco Use Types Packs/Day Years [...] 08/05/2022 How often do you attend chur ch or christianity services? 1 to 4 times per year 08/05/2022 Do you belong to any clubs o r organizations such as anabaptism groups, unions, fraternal or athletic groups, or [...] in a alf (including now)? No 08/05/2022 Comments Unknown Sex and Gender Information Value Date Recorded Sex Assigned at Not on file Legal Sex Female 7:23 PM EDT Gender Identity Not on file Sexual Orientation Not on file documented as of this encounter Miscellaneous Notes * Telephone Encounter - Alma Mcdaniel MD - 03/18/2023 8:59 AM EST documented in this encounter Plan of Treatment Upcoming Encounters Date Type Department Care Team (Late st Contact Info) Description 10/26/2024 10:45 AM EDT Office Visit [facility] [address] [place] [address] Sheldon Durham DO [address] [place] [address] 11/20/2024 8:00 AM EDT [facility] [address] [facility] [place] [address] Zoraida Rodriguez NP [address] [facility] [place] [address] documented as of this encounter Visit Diagnoses Diagnosis Primary insomnia Persistent disorder of initiating or maintaining sleep documented in this encounter Care Teams Chief Operating Officer Relationship Specialty Start Date End Date Alma Mcdaniel MD [facility] [facility] [place] [address] PCP - General Family Medicine 08/05/22 Amla Mcdaniel MD [facility] [place] [address] PCP - Medical [place] [employer] 06/27/18 10/16/24 Ayse Carmona NP [facility] [place] [address] Nurse Practitioner Family Medicine 08/05/22 08/22/24 Alexandria Disla, RN [address] [facility] [place] [address] Registered Nurse Family Medicine 10/15/23 Sheldon Durham DO [address] [place] [place] [address] Otolaryngology 03/03/24 Zoraida Rodriguez NP [address] [facility] [place] [address] Nurse Practitioner Family Medicine 08/23/24 documented as of this encounter
--- OUTSIDE RECORDS SUMMARY | 2024-10-25 09:36 | XMS_ITS | Encounter Summary ---
Author Organization [facility] Healthcare Address [address] [facility] [address] [place] [address] Care Team Providers Care Mottler Machine Feeder Name Role Phone Alma Mcdaniel MD Primary Care Provider [phone] Alexandria Disla RN Unavailable [phone] Sheldon Durham DO Unavailable [phone] Zoraida Rodriguez NP Unavailable [phone] Encounter Details Date Type Department Care Team (Late st Contact Info) Description 10/22/2024 Abstract [facility] Family Medicine [address] [place] [address] Alma Mcdaniel MD [address] [place], [place] [phone] Social History Tobacco Use Types Packs/Day Years [...] often do you attend chur ch or faith services? More than 4 times per year [...] Recorded Patient Health Questionnaire-2 Score 0 08/05/2022 [facility] - Occupational [...] place to sleep or slept in a nursing home (including now)? No 08/05/2022 Housing Stability [...] any time in the past 12 m [facility], were you homeless or living in a nursing home (including now)? No 10/15/2023 Comments Unknown [...] [facility] [address] [place] [phone] Sheldon Durham DO [address] [place] [address] 11/20/2024 8:00 AM EDT Office Visit [facility] [address] [place] [address] Zoraida Rodriguez NP [address] [place] [address] documented as of this encounter Goals Goal [...] documented as of this encounter Care Teams Mottler Machine Feeder Relationship Specialty Start Date End Date Alma Mcdaniel MD [address] [place] [address] PCP - General Family Medicine 08/05/22 Alexandria Disla, [place] [address] [place] [address] Registered Nurse Family Medicine 10/15/23 Sheldon Durham DO [address] [place] [address] Otolaryngology 03/03/24 Zoraida Rodriguez NP [address] [place] [address] Nurse Practitioner Family Medicine 08/23/24 documented as of this encounter
--- OUTSIDE RECORDS SUMMARY | 2024-10-25 09:36 | XMS_ITS | Encounter Summary ---
Author Organization [facility] Address [address] [place] [address] Care Team Providers Care Livestock Nutrition Territory Manager Name Role Phone Alma Mcdaniel MD Primary Care Provider [phone] Ayse Carmona EXTRUSION FORMER Unavailable [phone] Alma Mcdaniel MD Unavailable Alexandria Disla RN Unavailable [phone] Sheldon Durham DO Unavailable [phone] Zoraida Rodriguez [employer]TR[employer] FORMER Unavailable [phone] Encounter Details Date Type Department Care Team (Late Contact Info) Description 12/20/2018 Abstract [facility] [address] [place] [phone] Perla Caruso, [facility] [address] [place] [address] Social History Tobacco Use Types Packs/Day Years [...] Visit [facility] [address] [place] [address] Sheldon Durham DO [address] [place] [address] 11/20/2024 8:00 AM EDT [facility] [address] [facility] [place] [address] Zoraida Rodriguez NP [address] [facility] [place] [address] documented as of this encounter Visit Diagnoses Not on filedocumented in this encounter Care Teams Livestock Nutrition Territory Manager Relationship Specialty Start Date End Date Alma Mcdaniel MD [facility] [facility] [place] [address] PCP - General Family Medicine 08/05/22 Alma Mcdaniel MD [address] [facility] [place] [address] PCP - Medical [place] [employer] 06/27/18 10/16/24 Ayse Carmona NP [facility] [facility] [place] [address] Nurse Practitioner Family Medicine 08/05/22 08/22/24 Alexandria Disla, RN [address] [facility] [place] [address] Registered Nurse Family Medicine 10/15/23 Sheldon Durham DO [address] [place] [address] Otolaryngology 03/03/24 Zoraida Rodriguez NP [facility] [place] [address] Nurse Practitioner Family Medicine 08/23/24 documented as of this encounter
--- OUTSIDE RECORDS SUMMARY | 2024-10-25 09:36 | XMS_ITS | Encounter Summary ---
Author Organization [facility] tem Address [id number] [address] [place] [address] Care Team Providers Care Payroll Accountant Name Role Phone Alma Mcdaniel MD Primary Care Provider [phone] Encounter Details Date Type Department Care Team (Late st Contact Info) Description 07/13/2016 [facility]phone [facility] [address] [place] [phone] Christy Thurman Social History Tobacco Use Types Packs/Day Years Used Date Smoking Tobacco: Every Day Vaping/E-cigarettes Smokeless Tobacco: Never Alcohol Use Standard Drinks/Week Comments No 0 (1 standard drink = 0.6 oz pur e alcohol) Comments No Sex and Gender Information Value Date Recorded Sex Assigned at Not on file Legal Sex Female 11:59 AM EDT Gender Identity Not on file Sexual Orientation Not on file documented as of this encounter Plan of Treatment Not on file documented as of this encounter Visit Diagnoses Not on filedocumented in this encounter Additional Health Concerns Infection Onset Date Last Indicated Resolved Time COVID-19 Rule-Out 05/17/2022 05/17/2022 05/17/2022 11:29 AM EDT documented as of this encounter Care Teams Payroll Accountant Relationship Specialty Start Date End Date Alma Mcdaniel MD PCP - General Family Medicine 06/30/16 documented as of this encounter
--- OUTSIDE RECORDS SUMMARY | 2024-10-25 09:36 | XMS_ITS | Encounter Summary ---
Author Organization [facility] Address [address] [place] [address] Care Team Providers Care Slurry Control Tender Name Role Phone Alma Mcdaniel MD Primary Care Provider [phone] Ayse Carmona PRETZEL PACKER Unavailable [phone] Alma Mcdaniel MD Unavailable Alexandria Disla RN Unavailable [phone] Sheldon Durham DO Unavailable [phone] Zoraida Rodriguez NP Unavailable [phone] Encounter Details Date Type Department Care Team (Late st Contact Info) Description 10/13/2023 External Result Encounter [facility] External Department Unsolicited Donna Crawford NP [address] [facility] [address] [place] [address] Social History Tobacco Use Types Packs/Day Years [...] How often do you attend chur or uatsdin services? More than 4 times per year 10/15/2023 Do you belong to any clubs o r organizations such as alevism groups, unions, fraternal or athletic groups, or [...] any time in the past 12 m [facility], were you homeless or living in a usp (including now)? No 10/15/2023 Comments Unknown Sex and Gender Information Value Date Recorded Sex Assigned at Not on file Legal Sex Female 7:23 PM EDT Gender Identity Not on file Sexual Orientation Not on file documented as of this encounter Functional Status * Audit-C Score Answer Date of Assessment Author 0 10/15/2023 9:30 AM EDT Mychart, Generic * Q1: How often do you have a drink containing alcohol? Answer Date of Assessment Author Never 10/15/2023 9:30 AM EDT Mychart, Generic * Q2: How many drinks containing alcohol do you have on a typical day when you are drinking? Answer Date of Assessment Author Patient does not drink 10/15/2023 9:30 AM EDT My chart, Generic * Q3: How often do you have six or more drinks on one occasion? Answer Date of Assessment Author Never 10/15/2023 9:30 AM EDT Mychart, Generic documented as of this encounter Plan of Treatment Upcoming Encounters Date Type Department Care Team (Late st Contact Info) Description 10/26/2024 10:45 AM EDT Office Visit [facility] [address] [place] [address] Sheldon Durham DO [address] [place] [address] 11/20/2024 8:00 AM EDT Office Visit [facility] [address] [place] [address] Zoraida Rodriguez NP [address] [place] [address] documented as of this encounter Procedures Procedure Name Priority Date/Time Associated Diagnosis Comments VASC US LOWER EXTREMITY VENOUS DUPLEX LEFT 10/13/2023 1:54 PM EDT documented in this encounter Results * Vascular US lower extremity venous duplex left (10/13/2023 1:54 PM EDT) Anatomical Region Laterality Modality Lower Extremities Ultrasound 10/13/2023 1:54 PM EDT Impressions 10/13/2023 1:56 PM EDT NO EVIDENCE OF DEEP VENOUS THROMBOSIS IN THE LEFT LOWER EXTREMITY. NO SUPERFICIAL THROMBOPHLEBITIS WAS NOTED. Impression dictated by: Sly Wiseman M.D.10/13/2023 1:54 PM [facility]ictation [facility] Tech: Nadia Ba Transcribed By: MOJGAN 10/13/23 1354 Dictated By: Sly Wiseman MD 10/13/23 135 Signed By: <Electronically signed by MD Sly Wiseman in OV> 10/13/23 1354 Narrative 10/13/2023 1:56 PM EDT [facility] Main [place] [id number] Ultrasound Report Signed Patient: Kaylynn Talamantes MR#: [id number] : 1960 Acct:[id number] Age/Sex: 63 / F ADM Date: 10/12/23 Loc: ER Room: Type: [facility] ER Attending Dr: Ordering Provider: Donna Crawford APRN Date of Service: 10/12/23 US/US venous duplex LE LT: LLE swelling and pain Copies to: Donna Crawford APRN LEFT LOWER EXTREMITY VENOUS DUPLEX INDICATION: Painful swollen left leg Unilateral left lower extremity venous duplex Doppler study was obtained utilizing B-mode, color- flow and spectral Doppler. FINDINGS: The left common femoral, femoral, and popliteal veins showed adequate compressibility, color-flow and augmentation. The left posterior tibial and peroneal veins were compressible, as well as proximal greater saphenous vein. The contralateral right common femoral vein was compressible with color-flow and augmentation. US/US venous duplex LE LT Procedure Note Sly Wiseman MD - 10/13/2023 [facility] Main [address] [address] Ultrasound Report Signed Patient: Kaylynn Talamantes DMR#: [id number] : 1960cct:[id number] Age/Sex: 63 / FADM Date: 10/12/23 Loc: ER Room:Type: DEP ER Attending Dr: Ordering Provider: Donna Crawford APRN Date of Service: 10/12/23 US/US venous duplex LE LT: LLE swelling andpain Copies to: Donna Crawford APRN LEFT LOWER EXTREMITY VENOUS DUPLEX INDICATION: Painful swollen left leg Unilateral left lower extremity venous duplex Doppler study was obtainedutilizing B-mode, color- flow and spectral Doppler. FINDINGS: The left common femoral, femoral, and popliteal veins showedadequate compressibility, color-flow and augmentation. The left posterior tibial and peroneal veinswere compressible, as well as proximal greater saphenous vein. The contralateral right commonfemoral vein was compressible with color-flow and augmentation. US/US venous duplex LE IMPRESSION: NO EVIDENCE OF DEEP VENOUS THROMBOSIS IN THE LEFT LOWER EXTREMITY. NOSUPERFICIAL THROMBOPHLEBITIS WAS NOTED. Impression dictated by: Sly Wiseman M.D.10/13/2023 1:54 PM Dictation [facility] Tech: Nadia Ba Transcribed By: [facility] 10/13/23 1354 Dictated By: Sly Wiseman MD 10/13/23 1354 Signed By: <Electronically signed by MD Sly Wiseman in OV> 10/13/23 1354 us Donna Crawford PRETZEL PACKER IMG US PROCEDURES Final R esult documented in this encounter Visit Diagnoses Not on filedocumented in this encounter Care Teams Slurry Control Tender Relationship Specialty Start Date End Date Alma Mcdaniel MD [address] [place], [place] [phone] PCP - General Family Medicine 08/05/22 Alma Mcdaniel MD [address] [facility] [address] [place], [place] [phone] PCP - Medical [place] [employer] 06/27/18 10/16/24 Ayse Carmona NP [address] [place], [place] [phone] Nurse Practitioner Family Medicine 08/05/22 08/22/24 Alexandria Disla RN [address] [place] [address] Registered Nurse Family Medicine 10/15/23 Sheldon Durham DO [address] [place] [address] Otolaryngology 03/03/24 Zoraida Rodriguez NP [address] [place] [address] Nurse Practitioner Family Medicine 08/23/24 documented as of this encounter
--- OUTSIDE RECORDS SUMMARY | 2024-10-25 09:36 | XMS_ITS | Patient Health Record ---
Author Organization [facility] in [place] Address [address] [place] [address] Care Team Providers Care Section Laborer Name Role Phone Alma Mcdaniel MD Primary Care Provider Unavailabl e Provider, Radiology Unavailable [phone] Joel Mcintosh Unavailable [phone] Allergies Allergen (clinical drug ingredient) Drug/Non Drug Allergy documented on EMR Reaction Allergy Type Onset Date Status acyclovir Acyclovir Unknown Drug Allergy Active Results Component Value Reference Range Notes ARASELI SUBTYPE (8) (dsDNA, SSA, SSB, ROBERTS, CHEMICAL EDUCATOR, SCL70,JO1,CENTOMERE) Reviewed date:07/12/2024 08:34:41 AM Interpretation: Performing Lab:[facility], [address] [place], [address] Notes/Report: PERFORMED ON PHADIA EFFECTIVE 08-17-2022 FACILITY: [facility] [id number] ANTI ds DNA 1.0 (0.0 - 15.0) IU/ML SSA/RO52 0.7 (0.0 - 10.0) U/mL SSA/RO60 <0.4 (0.0 - 10.0) U/mL ANTI SSB/LA <0.4 (0.0 - 10.0) U/mL ANTI ROBERTS <0.7 (0.0 - 10.0) U/mL ANTI CHEMICAL EDUCATOR (U1RNP) 1.7 (0.0 - 10.0) U/mL ANTI SCL 70 0.7 (0.0 - 10.0) U/mL ANTI STEFF-1 <0.3 (0.0 - 10.0) U/mL ANTI CENTROMERE B <0.4 (0.0 - 10.0) U/mL MRI Hand RT w/wo contrast Reviewed date:09/13/2024 01:02:40 PM Interpretation: Performing Lab: Notes/Report: [facility] [address] [place] [id number] Name: LOIS CHAVEZ : 1960 Gender: F Referring Provider: Joel Mcintosh Exam: MRI HAND RT W/WO CONTRAST RIGHT Exam Start: 09/13/2024 Accn: [id number] History: Inflammatory polyarthropathy. Pain. History of carpal tunnel surgery. MRI of the right hand with and without gadolinium: Exam is read in conjunction with the 08/18/24 plain films of the right hand. Patient was given 20 mL of Clariscan IV. Findings: Minimal narrowing of all the IP joints. No periarticular erosion. No abnormal enhancement, particularly of the synovium, to suggest an inflammatory arthritis. Mild degenerative narrowing of the radiocarpal joint with small amount of edema in the scaphoid and lunate. No evidence for Kienbock's disease. Mild narrowing of the first CMC joint. No abnormal mass or fluid collection. Flexor and extensor tendons are intact. Imaged portion of the median nerve within the carpal tunnel is unremarkable. Figueroa system is unremarkable. IMPRESSION: 1. No evidence for inflammatory arthritis. 2. Mild degenerative changes. Transcribed by: KECIA MULTANI 09/13/2024 10:39 Sincerely, Romero Nowak MD Electronically Signed: 09/13/2024 10:43 Thank you for referring KAYLYNN ABREU to the [facility], [id number] [facility] [address] [place] [address] Name: LOIS CHAVEZ : 1960 Donald er: F Referring Provider: Joel Mcintosh Exam: MRI HAND RT W/ WO CONTRAST RIGHT Exam Start: 09/14/19 Accn: [id number] ___ History: Inflammator y polyarthropathy. Pain. History of carpal tunnel surgery. MRI of the right flannery d with and without gadolinium: Exam is read in conjunction with the 08/18/24 plain films of the right hand. Patient was given 20 mL of Clariscan IV. Findings: Minimal narrowing of all the IP joints. No periarticular erosion. No abnormal enhancement, particularly of the synovium, to suggest an inflammatory arthritis. Mild degenerative narrowing of the radiocarpal joint with small amount of edema in the scaphoid and lunate. No evidence for Kienbock's disease. Mild narrowing of the first CMC joint. No abnormal mass or fluid collection. Flexor and extensor tendons are intact. Imaged portion of the median nerve within the carpal tunnel is unremarkable. Figueroa system is unremarkable. IMPRESSION: 1. No evidence for inflammatory arthritis. 2. Mild degenerative changes. Transcribed by: KECIA MULTANI 09/13/2024 10:39 Sincerely, Romero Nowak MD Electronically Lissette d: 09/13/2024 10:43 Thank you for referr zheng ABREU to the [facility]. XR Hand RT (2 views) Reviewed date:08/18/2024 03:42:04 PM Interpretation: Performing Lab: Notes/Report: PROTEIN and CREATININE w RAT IO (RANDOM URINE) (SPOT) Reviewed date:07/19/2024 12:51:35 PM Interpretation: Performing Lab:[facility], [address] [place], [place], [address] [phone] Notes/Report: FACILITY: [facility] [id number] PROTEIN, URINE 15.6 (0.0 - 12.0) MG/DL CREAT UR. 19.0 (20 - 320) MG/DL URINE PROTEIN/CREAT RATIO 821 (21 - 161) MG/G CR TB GOLD PLUS, QUANTIFERON Reviewed date:07/19/2024 01:05:04 PM Interpretation: Performing Lab:[facility], [facility] [address], [facility] Samir Watts Notes/Report: FASTING:UNKNOWN FASTING: UNKNOWN QUANTIFERON(R)-TB GOLD PLUS, 1 TUBE NEGATIVE NEGATIVE infection unlikely. Negative test result. M. tuberculosis complex NIL 0.93 MITOGEN-NIL >10.00 TB2-NIL <0.00 For additional information, please refer to displayed TB and Mitogen results. This value has been subtracted from the patient's suppressive condition and/or suboptimal pre-analytical The TB2 Antigen tube is coated with the The TB1 Antigen tube is coated with the responses from TB antigen primed CD4+ helper and CD8+ cytotoxic T-lymphocytes. prevent false-negative Quantiferon readings by educational purposes only.) T-lymphocytes. gamma immune response of the patient's blood sample. specimen handling. detecting a patient with a potential immune (This link is being provided for informational/ https://education.[employer].com.1-800-DOCTORS/faq /TWM535 M. tuberculosis-specific antigens designed to elicit responses from TB antigen primed CD4+ helper Lower than expected results with the Mitogen tube M. tuberculosis-specific antigens designed to elicit The Nil tube value reflects the background interferon C3 and C4 Reviewed date:07/19/2024 10:17:01 AM Interpretation: Performing Lab:[facility], [address] [place], [place], [id number] [phone] Notes/Report: FACILITY: [facility] [id number] C 3 130 (88 - 165) MG/DL C 4 33 (14 - 44) MG/DL SED RATE and CRP Reviewed date:07/19/2024 10:17:01 AM Interpretation: Performing Lab:[facility], [address] [place], [address] [phone] Notes/Report: [place] [facility] [id number] SED RATE WEST. 23 (0 - 25) MM/HR CRP EXTENDED RANGE 2.63 (0.00 - 5.00) MG/L UA (REFLEX URINALYSIS TO CUL TURE) Reviewed date:07/19/2024 10:17:01 AM Interpretation: Performing Lab:[facility], [address] [place], [address] Notes/Report: [place] [facility] [id number] COLOR P YEL (P YEL - L AMB) CHARACTER CLEAR (CLEAR - HAZY) SP. GRAVITY 1.003 (1.001 - 1.035) PH 6.5 (5.0 - 9.0) ALBUMIN NEG (NONE - NEG) MG/DL GLUCOSE NEG (NEG) MG/DL KETONES NEG (NEG) MG/DL BILIRUBIN NEG (NEG) UROBILINOGEN 0.2 (0.2 - <2.0) MG/DL OCCULT BLD. NEG (NEG) NITRITE NEG (NEG) LEUK. ESTERASE NEG (NEG) UR. WBC 0-4 (0 - 4) /HPF UR. RBC 0-2 (0 - 2) /HPF SQUAMOUS EPI OCC (NONE - OCC) /HPF BACTERIA MOD (NONE - OCC) /HPF MUCUS NONE (NONE - OCC) /HPF REFLEX CULTURE ADDED YES () HEPATITIS C ANTIBODY (HCV) Reviewed date:07/19/2024 10:17:01 AM Interpretation: Performing Lab:[facility], [address] [place], [address] Notes/Report: [place] [facility] [id number] HEPATITIS C ANTIBODY NEG (NEG - NEG) HEPATITIS B SURFACE AB (HBSA B) Reviewed date:07/19/2024 10:17:01 AM Interpretation: Performing Lab:[facility], [address] [place], [address] Notes/Report: F[place] [facility] [id number] HEP B SURF AB NEG (NEG - NEG) HEPATITIS B CORE AB, TOTAL Reviewed date:07/19/2024 10:17:01 AM Interpretation: Performing Lab:[facility], [address] [place], [place], [id number] Notes/Report: FACILITY: [facility] [id number] HEP B CORE AB NEG (NEG - NEG) MTX PANEL (CBC, ALB,ALT, AST , ALK ,CREA w/GFR CKD-EPI)) Reviewed date:07/12/2024 08:35:07 AM Interpretation: Performing Lab:[facility], [address] [place], [address] [phone] Notes/Report: [place] [facility] [id number] WBC 9.16 (3.80 - 10.60) x10^3ul HEMOGLOBIN 14.6 (12.0 - 16.0) G/DL HEMATOCRIT 44.0 (37.0 - 47.0) % MCH 32.6 (27.0 - 33.0) PG MCHC 33.2 (30.0 - 37.0) G/DL ALBUMIN 3.5 (3.5 - 5.0) G/DL ALT (SGPT) 19 (1 - 35) U/L AST (SGOT) 20 (15 - 46) U/L ALK PHOS 83 (38 - 126) U/L CREATININE, BLOOD 0.52 (0.52 - 1.04) MG/DL GFR by CKD-EPI 104.3 (60.0) ML/M1.7 RBC 4.48 (4.20 - 5.40) x10^6ul MCV 98.2 (81.0 - 99.0) fl PLT 180 (130 - 400) x10^3ul VITAMIN B12 LEVEL AND FOLATE (FOLIC ACID) Reviewed date:07/12/2024 08:35:07 AM Interpretation: Performing Lab:[facility], [address] [place], [place], [address] Notes/Report: FACILITY: [facility] [id number] VITAMIN B-12 529 (239 - 931) PG/ML FOLIC ACID 2.3 (2.8 - 20.0) NG/ML FLUORESCENT ARASELI w TITER REFL EX TOSHA TESTING Reviewed date:07/03/2024 10:42:59 AM Interpretation: Performing Lab:[facility], [address] [place], [address] Notes/Report: FACILITY: [facility] [id number] ARASELI by HEp-2 CELLS PNDG (NEG - NEG) ARASELI TITER PNDG (<1:40 - 1:40) TOSHA-6 REFLEXED PNDG () SED RATE and CRP Reviewed date:07/12/2024 08:35:07 AM Interpretation: Performing Lab:[facility], [address] [place], [address] Notes/Report: FACILITY: [facility] [id number] SED RATE WEST. 57 (0 - 25) MM/HR CRP EXTENDED RANGE 62.86 (0.00 - 5.00) MG/L VITAMIN D, 25 LEVEL (TOTAL) Reviewed date:07/12/2024 08:35:07 AM Interpretation: Performing Lab:[facility], [address] [place], [address] Notes/Report: * * * VITAMIN D, 25 HYDROXY GENERAL GUIDELINE * * * DEFICIENCY = < OR = 20.0 NG/ML INSUFFICIENCY = 20.1 - 29.9 NG/ML SUFFICIENCY = 30.0 - 100.0 NG/ML TOXICITY = > 100.1 NG/ML FACILITY: [facility] [id number] VITAMIN D, 25 46.7 (30.0 - 100.0) NG/ML RHEUMATOID FACTOR (RHF) Reviewed date:07/12/2024 08:35:07 AM Interpretation: Performing Lab:[facility], [address] [place], [address] Notes/Report: FACILITY: [facility] [id number] RF FACTOR 9 (0 - 12) IU/ML CK (CPK) Reviewed date:07/12/2024 08:35:07 AM Interpretation: Performing Lab:[facility], [address] [place], [address] [phone] Notes/Report: FACILITY: [facility] [id number] CPK 36 (30 - 135) U/L ANTI - CCP (CYCLIC CITRULLIN ATED PEPTIDE AB) Reviewed date:07/12/2024 08:35:07 AM Interpretation: Performing Lab:[facility], [address] [place], [place], [address] Notes/Report: FACILITY: [facility] [id number] CCP ANTIBODY <0.5 (0.0 - 4.9) U/mL CULTURE, URINE w SENSITIVITY Reviewed date:07/19/2024 10:16:44 AM Interpretation: Performing Lab:[facility], [address] [place], [address] [phone] Notes/Report: FACILITY: [facility] [id number] URINE CULTURE SENS (. - .) STATUS ARASELI SUBTYPING (9) (dsDNA, RO 52, RO60, SSB, ROBERTS, CHEMICAL EDUCATOR, SCL70,JO1,CENTOMERE) Reviewed date:07/09/2024 04:45:01 PM Interpretation: Performing Lab:[facility], [address] [place], [address] Notes/Report: PERFORMED ON PHADIA EFFECTIVE 08-17-2022 FACILITY: [facility] [id number] ANTI ds DNA 1.0 (0.0 - 15.0) IU/ML SSA/RO52 PNDG (0.0 - 10.0) U/mL SSA/RO60 PNDG (0.0 - 10.0) U/mL ANTI SSB/LA <0.4 (0.0 - 10.0) U/mL ANTI ROBERTS <0.7 (0.0 - 10.0) U/mL ANTI CHEMICAL EDUCATOR (U1RNP) 1.7 (0.0 - 10.0) U/mL ANTI SCL 70 PNDG (0.0 - 10.0) U/mL ANTI STEFF-1 PNDG (0.0 - 10.0) U/mL ANTI CENTROMERE B PNDG (0.0 - 10.0) U/mL ARASELI(+) REFLEX TOSHA TESTS Reviewed date:07/12/2024 08:34:51 AM Interpretation: Performing Lab:[facility], [address] [place], [address] Notes/Report: FACILITY: [facility] [id number] SENSITIVITY GRAM (-) Reviewed date:07/19/2024 12:51:30 PM Interpretation: Performing Lab:[facility], [address], [place], [address] [phone] Notes/Report: FACILITY: [facility] [id number] AMPICILLIN R () AMPICILLIN/SULBACTAM S () PIPERACILLIN/TAZOBACTAM S () CEFAZOLIN I () CEFTRIAXONE S () CEFEPIME S () ERTAPENEM S () MEROPENEM S () AMIKACIN S () GENTAMICIN S () CIPROFLOXACIN S () LEVOFLOXACIN S () NITROFURANTOIN S () TRIMETH/SULFA S () REPORT STATUS FINAL () CULTURE SOURCE: CLEAN CATCH MID-STREAM URINE ISOLATE: ESCHERICHIA COLI COLONY COUNT: > 100,000 CFU/ML Reason For Referral No Information Medications Medication SIG (Take, Route, Frequency, Duration) Notes Start Date End Date Status predniSONE 5 MG 3 tablet Orally Once a day for 30 days 07/03/2024 Active PARoxetine HCl 40 MG 1 tablet in the mor kathy Orally Once a day Active Vitamin D 50 MCG (2000 UT) 1 capsule Ora lly Once a day Active Bumetanide 1 MG 1 tablet Orally Once a day Active Topamax 50 MG 1 tablet Orally twic e a day Active Atorvastatin Calcium 20 MG 1 tablet Oral ly Once a day Active tiZANidine HCl 4 MG 1 Orally twice a day Active Abilify 5 MG 1 tablet Orally Once a day Active Protonix 20 MG 1 tablet 1/2 to 1 ho ur before morning meal Orally Once a day Active Methotrexate Sodium 2.5 MG 6 Tablets Ora lly once weekly for 84 days 07/17/2024 Active Lyrica 150 MG 1 capsule Orally twi ce a day Active Folic Acid 1 MG 1 tablet Orally Once a day for 90 days 07/17/2024 Active Lisinopril-hydroCHLOROthiazi de 20-12.5 MG 1 tablet Orally Once a day Active Levothyroxine Sodium 75 MCG 1 tablet in the morning on an empty stomach Orally Once a day Active HYDROcodone-Acetaminophen 5-325 MG 1 tablet as needed Orally every 6 hrs Active Social History Tobacco Use: Social History Observation Description Date Details (start date - stop date) Current Smoker NA - NA Tobacco Control (Standard) Question Answer Notes Tobacco use: Current smoker Problems Problem Type SNOMED Code ICD Code Onset Dates Problem Status W/U Status Risk Notes Problem 074223458 Inflammatory polyarthropathy (M06.4) Active confirmed Problem Fibromyalgia (946239317) Fibromyalgia (M79.7) Active confirmed Problem [id number] Body mass index [BMI] 45.0-49.9, adult (Z68.42) Active confirmed Vital Signs Heart Rate 77 /min 08/18/2024 Temperature 97.9 degrees Fahrenheit 06/30/2024 Respiratory Rate 18 /min 08/18/2024 Blood pressure diastolic 70 mm Hg 08/18/2024 Height 61 in 08/18/2024 Blood pressure systolic 128 mm Hg 08/18/2024 Weight 235 lbs 08/18/2024 BMI 44.4 kg/m2 08/18/2024 Encounters Encounter Location Date Provider Diagnosis [facility] Rheumatology [address] [address] 07/03/2024 Joel Mcintosh Inflammatory polyarthropathy M06.4 [facility] Rheumatology [address] [place] [address] 09/25/2024 Joel Mcintosh [facility] Rheumatology [address] [facility] [facility] [place] [address] 10/03/2024 Joel Mcintosh [id number] [address] [facility] [address] [place], [place] [id number] 07/20/2024 Joel Mcintosh [facility] Rheumatology [address] [facility] [place] [address] 07/17/2024 Joel Gennaoui Fibromyalgia M79.7 ; Inflammatory polyarthropathy M06.4 ; Tobacco use Z72.0 ; Tobacco abuse counseling Z71.6 and Body mass index [BMI] 45.0-49.9, adult Z68.42 [facility] Rheumatology [address] [facility] [place] [address] 08/18/2024 Joel Gennaoui Fibromyalgia M79.7 ; Inflammatory polyarthropathy M06.4 ; Tobacco use Z72.0 ; Tobacco abuse counseling Z71.6 and Body mass index [BMI] 45.0-49.9, adult Z68.42 [facility] Rheumatology [address] [facility] [place] [address] 06/30/2024 Joel Mcintosh Fibromyalgia M79.7 ; Tobacco use Z72.0 ; Tobacco abuse counseling Z71.6 and Body mass index [BMI] 45.0-49.9, adult Z68.42 Radiology [facility] [address] [place] [address] 09/13/2024 Radiology Provider Assessments Encounter Date Diagnosis (ICD Code) Assessment Notes Treatment Notes Treatment Clinical Notes Section Notes 06/30/2024 Fibromyalgia (ICD-10 - M79.7) # Fibromyalgia - diagnosed based on pain all over, fatigue, poor sleep, brain fog along, and elevated SS and WPI. -I do not see any evidence of autoimmune connective tissue disease at this time -Currently on Lyrica 150 mg twice daily, Bailey twice a day, Paroxetine, and Tizanidine 4 mg BID (but only using as needed -Plan: Labs ordered to rule out contributing causes to her symptoms. I recommended to take tizanidine every night. -For fibromyalgia, information was provided on the disease and discussed treatment is geared towards more supportive care. It was advised that to improve sleep hygiene, perform low impact exercises including pool therapy, walking and stretching routines, and try meditation. - # Obese -BMI -discussed weight loss - # Low back pain, chronoic -following with pain management - # Tobacco abuse -discussed quiting - 45 minutes was with the patient, chart reviewing, documenting, and coordinating care. 06/30/2024 Tobacco use (ICD-10 - Z72.0) # Fibromyalgia - diagnosed based on pain all over, fatigue, poor sleep, brain fog along, and elevated SS and WPI. -I do not see any evidence of autoimmune connective tissue disease at this time -Currently on Lyrica 150 mg twice daily, Bailey twice a day, Paroxetine, and Tizanidine 4 mg BID (but only using as needed -Plan: Labs ordered to rule out contributing causes to her symptoms. I recommended to take tizanidine every night. -For fibromyalgia, information was provided on the disease and discussed treatment is geared towards more supportive care. It was advised that to improve sleep hygiene, perform low impact exercises including pool therapy, walking and stretching routines, and try meditation. - # Obese -BMI -discussed weight loss - # Low back pain, chronoic -following with pain management - # Tobacco abuse -discussed quiting - 45 minutes was with the patient, chart reviewing, documenting, and coordinating care. 07/17/2024 Fibromyalgia (ICD-10 - M79.7) # Inflammatory Polyarthropathy -She presents like a seronegative RA / PMR. Did not respond that much to prednisone 15 mg (about 20% improvement) -She does have a challenging presentation with classic symptoms, elevated inflammatory markers. But no obvious synovitis to me and lack of improvement to prednisone. She does state her hands are swollen. -Plan: We will treat like seronegative RA. Start MTX 15 mg weekly. Folic acid 1 mg daily. Side effects of methotrexate including but not limited to GI upset, fatigue, hair loss, bone marrow suppression, hepatotoxicity and malignancy were made clear. Ok to stop prednisone as it has not helped much. Because of her weight I do not want to do higher doses. GCA is unlikely without pain at the temporal arteritis and good pulses here, No jaw claudication or vision changes. - # Fibromyalgia - diagnosed based on pain all over, fatigue, poor sleep, brain fog along, and elevated SS and WPI. -Some of her symptoms are fibromyalgia related. -Currently on Lyrica 150 mg twice daily, Bailey twice a day, Paroxetine, and Tizanidine 4 mg BID (but only using as needed - # Obese -BMI -discussed weight loss. She has lost 30 pounds. - # Low back pain, chronic -following with pain management - # Tobacco abuse -discussed quitting. She is working on this. - This is a moderately complex case with review of 3 unique tests and prescription drug management. 07/17/2024 Inflammatory polyarthropathy (ICD-10 - M06.4) # Inflammatory Polyarthropathy -She presents like a seronegative RA / PMR. Did not respond that much to prednisone 15 mg (about 20% improvement) -She does have a challenging presentation with classic symptoms, elevated inflammatory markers. But no obvious synovitis to me and lack of improvement to prednisone. She does state her hands are swollen. -Plan: We will treat like seronegative RA. Start MTX 15 mg weekly. Folic acid 1 mg daily. Side effects of methotrexate including but not limited to GI upset, fatigue, hair loss, bone marrow suppression, hepatotoxicity and malignancy were made clear. Ok to stop prednisone as it has not helped much. Because of her weight I do not want to do higher doses. GCA is unlikely without pain at the temporal arteritis and good pulses here, No jaw claudication or vision changes. - # Fibromyalgia - diagnosed based on pain all over, fatigue, poor sleep, brain fog along, and elevated SS and WPI. -Some of her symptoms are fibromyalgia related. -Currently on Lyrica 150 mg twice daily, Bailey twice a day, Paroxetine, and Tizanidine 4 mg BID (but only using as needed - # Obese -BMI -discussed weight loss. She has lost 30 pounds. - # Low back pain, chronic -following with pain management - # Tobacco abuse -discussed quitting. She is working on this. - This is a moderately complex case with review of 3 unique tests and prescription drug management. 08/18/2024 Fibromyalgia (ICD-10 - M79.7) # Inflammatory Polyarthropathy -Initialy symptoms were thought to be do to fibromyalgia however due to elevated ESR 62 and CRP of 57 and severity of her symptoms, a seronegative RA / PMR is a concern. -We did do a trial of prednisone 15 mg daily but only had 20% improvement. -We started MTX 15 mg once weekly and folic acid 1 mg daily. She has some improvement but continues to have pain -Plan: we will get MRI of the right hand followed by MRI to evaluate for active synovitis. Continue MTX 15 mg weekly and folic 1 mg daily for now. Further treatment pending MRI results. - # Fibromyalgia - diagnosed based on pain all over, fatigue, poor sleep, brain fog along, and elevated SS and WPI. -Some of her symptoms are fibromyalgia related. -Currently on Lyrica 150 mg twice daily, Bailey twice a day, Paroxetine, and Tizanidine 4 mg BID (but only using as needed) - # Obese -BMI -discussed weight loss. She has lost 30 pounds. - # Low back pain, chronic -following with pain management - # Tobacco abuse -discussed quitting. She is working on this. 07/03/2024 Inflammatory polyarthropathy (ICD-10 - M06.4) 08/18/2024 Inflammatory polyarthropathy (ICD-10 - M06.4) # Inflammatory Polyarthropathy -Initialy symptoms were thought to be do to fibromyalgia however due to elevated ESR 62 and CRP of 57 and severity of her symptoms, a seronegative RA / PMR is a concern. -We did do a trial of prednisone 15 mg daily but only had 20% improvement. -We started MTX 15 mg once weekly and folic acid 1 mg daily. She has some improvement but continues to have pain -Plan: we will get MRI of the right hand followed by MRI to evaluate for active synovitis. Continue MTX 15 mg weekly and folic 1 mg daily for now. Further treatment pending MRI results. - # Fibromyalgia - diagnosed based on pain all over, fatigue, poor sleep, brain fog along, and elevated SS and WPI. -Some of her symptoms are fibromyalgia related. -Currently on Lyrica 150 mg twice daily, Bailey twice a day, Paroxetine, and Tizanidine 4 mg BID (but only using as needed) - # Obese -BMI -discussed weight loss. She has lost 30 pounds. - # Low back pain, chronic -following with pain management - # Tobacco abuse -discussed quitting. She is working on this. 07/17/2024 Tobacco use (ICD-10 - Z72.0) # Inflammatory Polyarthropathy -She presents like a seronegative RA / PMR. Did not respond that much to prednisone 15 mg (about 20% improvement) -She does have a challenging presentation with classic symptoms, elevated inflammatory markers. But no obvious synovitis to me and lack of improvement to prednisone. She does state her hands are swollen. -Plan: We will treat like seronegative RA. Start MTX 15 mg weekly. Folic acid 1 mg daily. Side effects of methotrexate including but not limited to GI upset, fatigue, hair loss, bone marrow suppression, hepatotoxicity and malignancy were made clear. Ok to stop prednisone as it has not helped much. Because of her weight I do not want to do higher doses. GCA is unlikely without pain at the temporal arteritis and good pulses here, No jaw claudication or vision changes. - # Fibromyalgia - diagnosed based on pain all over, fatigue, poor sleep, brain fog along, and elevated SS and WPI. -Some of her symptoms are fibromyalgia related. -Currently on Lyrica 150 mg twice daily, Bailey twice a day, Paroxetine, and Tizanidine 4 mg BID (but only using as needed - # Obese -BMI -discussed weight loss. She has lost 30 pounds. - # Low back pain, chronic -following with pain management - # Tobacco abuse -discussed quitting. She is working on this. - This is a moderately complex case with review of 3 unique tests and prescription drug management. 06/30/2024 Tobacco abuse counseling (ICD-10 - Z71.6) # Fibromyalgia - diagnosed based on pain all over, fatigue, poor sleep, brain fog along, and elevated SS and WPI. -I do not see any evidence of autoimmune connective tissue disease at this time -Currently on Lyrica 150 mg twice daily, Bailey twice a day, Paroxetine, and Tizanidine 4 mg BID (but only using as needed -Plan: Labs ordered to rule out contributing causes to her symptoms. I recommended to take tizanidine every night. -For fibromyalgia, information was provided on the disease and discussed treatment is geared towards more supportive care. It was advised that to improve sleep hygiene, perform low impact exercises including pool therapy, walking and stretching routines, and try meditation. - # Obese -BMI -discussed weight loss - # Low back pain, chronoic -following with pain management - # Tobacco abuse -discussed quiting - 45 minutes was with the patient, chart reviewing, documenting, and coordinating care. 06/30/2024 Body mass index [BMI] 45.0-49.9, adult (ICD-10 - Z68.42) # Fibromyalgia - diagnosed based on pain all over, fatigue, poor sleep, brain fog along, and elevated SS and WPI. -I do not see any evidence of autoimmune connective tissue disease at this time -Currently on Lyrica 150 mg twice daily, Bailey twice a day, Paroxetine, and Tizanidine 4 mg BID (but only using as needed -Plan: Labs ordered to rule out contributing causes to her symptoms. I recommended to take tizanidine every night. -For fibromyalgia, information was provided on the disease and discussed treatment is geared towards more supportive care. It was advised that to improve sleep hygiene, perform low impact exercises including pool therapy, walking and stretching routines, and try meditation. - # Obese -BMI -discussed weight loss - # Low back pain, chronoic -following with pain management - # Tobacco abuse -discussed quiting - 45 minutes was with the patient, chart reviewing, documenting, and coordinating care. 07/17/2024 Tobacco abuse counseling (ICD-10 - Z71.6) # Inflammatory Polyarthropathy -She presents like a seronegative RA / PMR. Did not respond that much to prednisone 15 mg (about 20% improvement) -She does have a challenging presentation with classic symptoms, elevated inflammatory markers. But no obvious synovitis to me and lack of improvement to prednisone. She does state her hands are swollen. -Plan: We will treat like seronegative RA. Start MTX 15 mg weekly. Folic acid 1 mg daily. Side effects of methotrexate including but not limited to GI upset, fatigue, hair loss, bone marrow suppression, hepatotoxicity and malignancy were made clear. Ok to stop prednisone as it has not helped much. Because of her weight I do not want to do higher doses. GCA is unlikely without pain at the temporal arteritis and good pulses here, No jaw claudication or vision changes. - # Fibromyalgia - diagnosed based on pain all over, fatigue, poor sleep, brain fog along, and elevated SS and WPI. -Some of her symptoms are fibromyalgia related. -Currently on Lyrica 150 mg twice daily, Bailey twice a day, Paroxetine, and Tizanidine 4 mg BID (but only using as needed - # Obese -BMI -discussed weight loss. She has lost 30 pounds. - # Low back pain, chronic -following with pain management - # Tobacco abuse -discussed quitting. She is working on this. - This is a moderately complex case with review of 3 unique tests and prescription drug management. 08/18/2024 Tobacco use (ICD-10 - Z72.0) # Inflammatory Polyarthropathy -Initialy symptoms were thought to be do to fibromyalgia however due to elevated ESR 62 and CRP of 57 and severity of her symptoms, a seronegative RA / PMR is a concern. -We did do a trial of prednisone 15 mg daily but only had 20% improvement. -We started MTX 15 mg once weekly and folic acid 1 mg daily. She has some improvement but continues to have pain -Plan: we will get MRI of the right hand followed by MRI to evaluate for active synovitis. Continue MTX 15 mg weekly and folic 1 mg daily for now. Further treatment pending MRI results. - # Fibromyalgia - diagnosed based on pain all over, fatigue, poor sleep, brain fog along, and elevated SS and WPI. -Some of her symptoms are fibromyalgia related. -Currently on Lyrica 150 mg twice daily, Bailey twice a day, Paroxetine, and Tizanidine 4 mg BID (but only using as needed) - # Obese -BMI -discussed weight loss. She has lost 30 pounds. - # Low back pain, chronic -following with pain management - # Tobacco abuse -discussed quitting. She is working on this. 08/18/2024 Tobacco abuse counseling (ICD-10 - Z71.6) # Inflammatory Polyarthropathy -Initialy symptoms were thought to be do to fibromyalgia however due to elevated ESR 62 and CRP of 57 and severity of her symptoms, a seronegative RA / PMR is a concern. -We did do a trial of prednisone 15 mg daily but only had 20% improvement. -We started MTX 15 mg once weekly and folic acid 1 mg daily. She has some improvement but continues to have pain -Plan: we will get MRI of the right hand followed by MRI to evaluate for active synovitis. Continue MTX 15 mg weekly and folic 1 mg daily for now. Further treatment pending MRI results. - # Fibromyalgia - diagnosed based on pain all over, fatigue, poor sleep, brain fog along, and elevated SS and WPI. -Some of her symptoms are fibromyalgia related. -Currently on Lyrica 150 mg twice daily, Bailey twice a day, Paroxetine, and Tizanidine 4 mg BID (but only using as needed) - # Obese -BMI -discussed weight loss. She has lost 30 pounds. - # Low back pain, chronic -following with pain management - # Tobacco abuse -discussed quitting. She is working on this. 07/17/2024 Body mass index [BMI] 45.0-49.9, adult (ICD-10 - Z68.42) # Inflammatory Polyarthropathy -She presents like a seronegative RA / PMR. Did not respond that much to prednisone 15 mg (about 20% improvement) -She does have a challenging presentation with classic symptoms, elevated inflammatory markers. But no obvious synovitis to me and lack of improvement to prednisone. She does state her hands are swollen. -Plan: We will treat like seronegative RA. Start MTX 15 mg weekly. Folic acid 1 mg daily. Side effects of methotrexate including but not limited to GI upset, fatigue, hair loss, bone marrow suppression, hepatotoxicity and malignancy were made clear. Ok to stop prednisone as it has not helped much. Because of her weight I do not want to do higher doses. GCA is unlikely without pain at the temporal arteritis and good pulses here, No jaw claudication or vision changes. - # Fibromyalgia - diagnosed based on pain all over, fatigue, poor sleep, brain fog along, and elevated SS and WPI. -Some of her symptoms are fibromyalgia related. -Currently on Lyrica 150 mg twice daily, Bailey twice a day, Paroxetine, and Tizanidine 4 mg BID (but only using as needed - # Obese -BMI -discussed weight loss. She has lost 30 pounds. - # Low back pain, chronic -following with pain management - # Tobacco abuse -discussed quitting. She is working on this. - This is a moderately complex case with review of 3 unique tests and prescription drug management. 08/18/2024 Body mass index [BMI] 45.0-49.9, adult (ICD-10 - Z68.42) # Inflammatory Polyarthropathy -Initialy symptoms were thought to be do to fibromyalgia however due to elevated ESR 62 and CRP of 57 and severity of her symptoms, a seronegative RA / PMR is a concern. -We did do a trial of prednisone 15 mg daily but only had 20% improvement. -We started MTX 15 mg once weekly and folic acid 1 mg daily. She has some improvement but continues to have pain -Plan: we will get MRI of the right hand followed by MRI to evaluate for active synovitis. Continue MTX 15 mg weekly and folic 1 mg daily for now. Further treatment pending MRI results. - # Fibromyalgia - diagnosed based on pain all over, fatigue, poor sleep, brain fog along, and elevated SS and WPI. -Some of her symptoms are fibromyalgia related. -Currently on Lyrica 150 mg twice daily, Bailey twice a day, Paroxetine, and Tizanidine 4 mg BID (but only using as needed) - # Obese -BMI -discussed weight loss. She has lost 30 pounds. - # Low back pain, chronic -following with pain management - # Tobacco abuse -discussed quitting. She is working on this. 09/25/2024 # Inflammatory Polyarthropathy -Initialy symptoms were thought to be do to fibromyalgia however due to elevated ESR 62 and CRP of 57 and severity of her symptoms, a seronegative RA / PMR is a concern. -We did do a trial of prednisone 15 mg daily but only had 20% improvement. -We started MTX 15 mg once weekly and folic acid 1 mg daily. She has some improvement but continues to have pain -Plan: we will get MRI of the right hand followed by MRI to evaluate for active synovitis. Continue MTX 15 mg weekly and folic 1 mg daily for now. Further treatment pending MRI results. - # Fibromyalgia - diagnosed based on pain all over, fatigue, poor sleep, brain fog along, and elevated SS and WPI. -Some of her symptoms are fibromyalgia related. -Currently on Lyrica 150 mg twice daily, Bailey twice a day, Paroxetine, and Tizanidine 4 mg BID (but only using as needed) - # Obese -BMI -discussed weight loss. She has lost 30 pounds. - # Low back pain, chronic -following with pain management - # Tobacco abuse -discussed quitting. She is working on this. Plan Of Treatment No Information Insurance Providers Payer Name Payer Address Payer Phone Subscriber Number Group Number Insured Name Patient Relationship to Insured Coverage Start Date Coverage End Date O [employer] [address] [place] [phone] [id number] Kaylynn Abreu Self - patient is the insured
--- OUTSIDE RECORDS SUMMARY | 2024-10-25 09:36 | XMS_ITS | Encounter Summary ---
Author Organization [facility] Address [address] [facility] [address] [place] [address] Care Team Providers Care Endodontist Name Role Phone Alma Mcdaniel MD Primary Care Provider [phone] Ayse Carmona CHANNEL MARKETING MANAGER Unavailable [phone] Alma Mcdaniel MD Unavailable Alexandria Disla RN Unavailable [phone] Sheldon Durham DO Unavailable [phone] Zoraida Rodriguez CHANNEL MARKETING MANAGER Unavailable Encounter Details Date Type Department Care Team (Late st Contact Info) Description 09/15/2023 Orders Only [facility] [address] [place] [address] Alma Mcdaniel MD [address] [place], [place] [id number] Social History Tobacco Use Types Packs/Day Years [...] How often do you attend chur or advent services? 1 to 4 times per year 08/05/2022 Do you belong to any clubs o r organizations such as mormonism groups, unions, fraternal or athletic groups, or [...] Recorded Patient Health Questionnaire-2 Score 0 08/05/2022 [facility] [place] of Occupat ional Health - Occupational Stress [...] place to sleep or slept in a detention (including now)? No 08/05/2022 Comments Unknown Sex [...] Visit [facility] [address] [place] [address] Sheldon Durham DO [address] [place] [address] 11/20/2024 8:00 AM EDT Office Visit [facility] [address] [place] [facility] [address] Zoraida Rodriguez NP [address] [facility] [place] [address] documented as of this encounter Visit Diagnoses Not on filedocumented in this encounter Care Teams Endodontist Relationship Specialty Start Date End Date Alma Mcdaniel MD [address] [facility] [place] [address] PCP - General Family Medicine 08/05/22 Alma Mcdaniel MD [address] [place] [address] PCP - Medical [employer] 06/27/18 10/16/24 Ayse Carmona NP [facility] [place] [address] Nurse Practitioner Family Medicine 08/05/22 08/22/24 Alexandria Disla, [place] [address] [place] [address] Registered Nurse Family Medicine 10/15/23 Sheldon Durham DO [address] [place] [address] Otolaryngology 03/03/24 Zoraida Rodriguez NP [address] [place] [address] Nurse Practitioner Family Medicine 08/23/24 documented as of this encounter
--- OUTSIDE RECORDS SUMMARY | 2024-10-25 09:36 | XMS_ITS | Encounter Summary ---
Author Organization [facility] Address [address] [place] [address] Care Team Providers Care Pricing Actuary Name Role Phone Alma Mcdaniel MD Primary Care Provider [phone] Ayse Carmona STONE RIGGER Unavailable [phone] Alma Mcdaniel MD Unavailable Alexandria Disla RN Unavailable [phone] Sheldon Durham DO Unavailable [phone] Zoraida Rodriguez STONE RIGGER Unavailable [phone] Encounter Details Date Type Department Care Team (Late Contact Info) Description 03/29/2020 Abstract [facility] [address] [place] [address] Perla Caruso, [facility] [address] [place] [address] Social History Tobacco Use Types Packs/Day Years Used Date Smoking Tobacco: Never Assessed Comments Unknown Sex and Gender Information Value Date Recorded Sex Assigned at Not on file Legal Sex Female 7:23 PM EDT Gender Identity Not on file Sexual Orientation Not on file documented as of this encounter Plan of Treatment Upcoming Encounters Date Type Department Care Team ([facility] Contact Info) Description 10/26/2024 10:45 AM EDT Office Visit [facility] [address] [place] [address] Sheldon Durham DO [address] [place] [address] 11/20/2024 8:00 AM EDT Office [facility] [address] [facility] [place] [address] Zoraida Rodriguez NP [address] [facility] [place] [address] documented as of this encounter Visit Diagnoses Not on filedocumented in this encounter Care Teams Pricing Actuary Relationship Specialty Start Date End Date Alma Mcdaniel MD [facility] [facility] [place] [address] PCP - General Family Medicine 08/05/22 Alma Mcdaniel MD [address] [facility] [place] [address] PCP - Medical [place] [employer] 06/27/18 10/16/24 Ayse Carmona NP [address] [facility] [place] [address] Nurse Practitioner Family Medicine 08/05/22 08/22/24 Alexandria Disla, RN [address] [facility] [place] [address] Registered Nurse Family Medicine 10/15/23 Sheldon Durham DO [address] [place] [address] Otolaryngology 03/03/24 Zoraida Rodriguez NP [address] [place] [address] Nurse Practitioner Family Medicine 08/23/24 documented as of this encounter
--- OUTSIDE RECORDS SUMMARY | 2024-10-25 09:36 | XMS_ITS | Encounter Summary ---
Author Organization [facility] Address [address] [place] [address] Care Team Providers Care Partner Integration Planner Name Role Phone Alma Mcdaniel MD Primary Care Provider [phone] Ayse Carmona WAREHOUSE RECEIVING CLERK Unavailable [phone] Alma Mcdaniel MD Unavailable Alexandria Disla RN Unavailable Sheldon Durham DO Unavailable [phone] Zoraida Rodriguez WAREHOUSE RECEIVING CLERK Unavailable [phone] Encounter Details Date Type Department Care Team (Late Contact Info) Description 11/02/2018 [facility] [address] [place] [phone] Perla Caruso, [facility] [address] [place] [address] Social History Tobacco Use Types Packs/Day Years [...] Visit [facility] [address] [place] [address] Sheldon Durham DO [address] [place] [address] 11/20/2024 8:00 AM EDT [facility] [address] [facility] [place] [address] Zoraida Rodriguez NP [address] [facility] [place] [address] documented as of this encounter Visit Diagnoses Not on filedocumented in this encounter Care Teams Partner Integration Planner Relationship Specialty Start Date End Date Alma Mcdaniel MD [facility] [facility] [place] [address] PCP - General Family Medicine 08/05/22 Alma Mcdaniel MD [address] [facility] [place] [address] PCP - Medical [place] [employer] 06/27/18 10/16/24 Ayse Carmona NP [facility] [facility] [place] [address] Nurse Practitioner Family Medicine 08/05/22 08/22/24 Alexandria Disla, RN [address] [facility] [place] [address] Registered Nurse Family Medicine 10/15/23 Sheldon Durham DO [address] [place] [address] Otolaryngology 03/03/24 Zoraida Rodriguez NP [facility] [place] [address] Nurse Practitioner Family Medicine 08/23/24 documented as of this encounter
--- OUTSIDE RECORDS SUMMARY | 2024-10-25 09:36 | XMS_ITS | Encounter Summary ---
Author Organization [facility] Address [address] [facility] [place] [address] Care Team Providers Care Principal Biostatistician Name Role Phone Alma Mcdaniel MD Primary Care Provider [phone] Alexandria Disla RN Unavailable [phone] Sheldon Durham DO Unavailable [phone] Zoraida Rodriguez NP Unavailable [phone] Encounter Details Date Type Department Care Team (Late st Contact Info) Description 10/20/2024 Orders Only [facility] Medicine [address] [place] [address] Zoraida Rodriguez NP [address] [place], [place] [phone] Candidiasis (Primary Dx) Social History Tobacco Use Types Packs/Day Years [...] often do you attend chur ch or druze services? More than 4 times per year 10/15/2023 Do you belong to any clubs o r organizations such as tenriism groups, unions, fraternal or athletic groups, or [...] Recorded Patient Health Questionnaire-2 Score 0 08/05/2022 [facility] of Occupat ional Health - Occupational Stress [...] time in the past 12 m [facility] [place], were you homeless or living in a [...] Visit [facility] [address] [place] [address] Sheldon Durham DO [address] [place] [address] 11/20/2024 8:00 AM EDT Office Visit [facility] [address] [place] [phone] Zoraida Rodriguez NP [address] [place] [address] documented as of this encounter Goals Goal Patient Goal Type Associated Problems Recent Progress Patient-Stated? Author Help patient manage antidepressant medication Care Plan Patient on antidepressant monitoring plan No Alma Mcdaniel MD Baseline PHQ-9 Care Plan Baseline PHQ-9 No Alma Mcdaniel MD documented as of this encounter Visit Diagnoses Diagnosis Candidiasis- Primary documented in this encounter Additional Health Concerns Active Problems Noted Date Diagnosed Date Patient on antidepressant monitoring plan 2024 Baseline PHQ-9 07/04/2024 documented as of this encounter Care Teams Principal Biostatistician Relationship Specialty Start Date End Date Alma Mcdaniel MD [address] [place] [address] PCP - General Family Medicine 08/05/22 Alexandria Disla, [place] [address] [place] [address] Registered Nurse Family Medicine 10/15/23 Sheldon Durham DO [address] [place] [address] Otolaryngology 03/03/24 Zoraida Rodriguez NP [address] [place] [address] Nurse Practitioner Family Medicine 08/23/24 documented as of this encounter
--- OUTSIDE RECORDS SUMMARY | 2024-10-25 09:36 | XMS_ITS | Encounter Summary ---
Author Organization [facility] Address [address] [place] [address] Care Team Providers Care Clay Pigeon Loader Name Role Phone Alma Mcdaniel MD Primary Care Provider [phone] Ayse Carmona A R SPECIALIST Unavailable [phone] Alma Mcdaniel MD Unavailable Alexandria Disla RN Unavailable [phone] Sheldon Durham DO Unavailable [phone] Zoraida Rodriguez A R SPECIALIST Unavailable [phone] Encounter Details Date Type Department Care Team (Late Contact Info) Description 11/02/2018 [facility] [address] [place] [phone] Perla Caruso, [facility] [address] [place] [address] Social History Tobacco Use Types Packs/Day Years [...] Visit [facility] [address] [place] [address] Sheldon Durham DO [address] [place] [address] 11/20/2024 8:00 AM EDT [facility] [address] [facility] [place] [address] Zoraida Rodriguez NP [address] [facility] [place] [address] documented as of this encounter Visit Diagnoses Not on filedocumented in this encounter Care Teams Clay Pigeon Loader Relationship Specialty Start Date End Date Alma Mcdaniel MD [facility]9 [facility] [place] [address] PCP - General Family Medicine 08/05/22 Alma Mcdaniel MD [address] [facility] [place] [address] PCP - Medical [place] [employer] 06/27/18 10/16/24 Ayse Carmona NP [facility]9 [facility] [place] [address] Nurse Practitioner Family Medicine 08/05/22 08/22/24 Alexandria Disla, RN [address] [facility] [place] [address] Registered Nurse Family Medicine 10/15/23 Sheldon Durham DO [address] [place] [address] Otolaryngology 03/03/24 Zoraida Rodriguez NP [facility] [place] [address] Nurse Practitioner Family Medicine 08/23/24 documented as of this encounter
--- OUTSIDE RECORDS SUMMARY | 2024-10-25 09:36 | XMS_ITS | Encounter Summary ---
Author Organization [facility] Address [address] [place] [address] Care Team Providers Care Die Repairer Forging Name Role Phone Alma Mcdaniel MD Primary Care Provider [phone] Alexandria Disla RN Unavailable [phone] Sheldon Durham DO Unavailable [phone] Zoraida Rordiguez NP Unavailable [phone] Encounter Details Date Type Department Care Team (Late st Contact Info) Description 10/17/2024 Patient Outreach [facility] [address] [place] [address] Alexandria Disla, RN [address], [place] [id number] Social History Tobacco Use Types Packs/Day Years [...] often do you attend chur ch or hoahaoism services? More than 4 times per year 10/15/2023 Do you belong to any clubs o r organizations such as episcopal groups, unions, fraternal or athletic groups, or [...] Recorded Patient Health Questionnaire-2 Score 0 08/05/2022 [facility] of Occupat ional Health - Occupational [...] place to sleep or slept in a longterm (including now)? No 08/05/2022 Housing Stability Vital Sign Answer August e Recorded In the last 12 months, was t here a time when you were not able to pay the mortgage or rent on time? No 10/15/2023 In the past 12 months, how m any times have you moved where you were living? 0 10/15/2023 At any time in the past 12 m [facility], were you homeless or living in a longterm (including now)? No 10/15/2023 Comments Unknown Sex and Gender Information Value Date Recorded Sex Assigned at Not on file Legal Sex Female 7:23 PM EDT Gender Identity Not on file Sexual Orientation Not on file documented as of this encounter Progress Notes * Alexandria Disla RN - 10/17/2024 4:11 PM EDT Called pt for weekly monitor. States she was just going to bed to lay down. States she is not feeling well, she has nausea today. States she wasn't feel as good as she has been, some friends from [employer] came and took pt and her spouse out for lunch, since then she has nausea and wants to go rest. Encouraged to call ccm tomorrow if she is still nauseated. She verbalized understanding. Flowsheet Row Patient Outreach from 10/17/2024 in [facility] with Alexandria Disla RN Week Number Call Week 1 Call Was patient contacted successfully? Yes Have you had any urgent care/ED/Hospital visits since discharge? No Any medication changes since last contact? No Is the patient taking all medications as directed? Yes Have you visited your PCP since discharge? Yes Have you visited your specialist since discharge? No, scheduled Does patient have home health? no What is the patient's perception of their health status since discharge? Improving Is the patient/caregiver able to teach back the hierarchy of who to call/visit for symptoms/problems? PCP, Specialist, Home Health nurse, Urgent Care, ED, 911 Yes documented in this encounter Plan of Treatment Upcoming Encounters Date Type Department Care Team (Late st Contact Info) Description 10/26/2024 10:45 AM EDT Office Visit [facility] [address] [place] [address] Sheldon Durham, DO [address] [place] [address] 11/20/2024 8:00 AM EDT [facility] [address] [place] [address] Zoraida Rodriguez NP [address] [facility] [place] [address] documented as of this encounter Goals Goal Patient Goal Type Associated Problems Recent Progress Patient-Stated? Author Help patient manage antidepressant medication Care Plan Patient on antidepressant monitoring plan No Alma Mcdaniel MD Baseline PHQ-9 Care Plan Baseline PHQ-9 No Alma Mcdaniel MD documented as of this encounter Visit Diagnoses Diagnosis Essential hypertension- Primary Unspecified essential hypertension Chronic obstructive pulmonary disease, unspecified COPD type (HCC) documented in this encounter Additional Health Concerns Active Problems Noted Date Diagnosed Date Patient on antidepressant monitoring plan 2024 Baseline PHQ-9 07/04/2024 documented as of this encounter Care Teams Die Repairer Forging Relationship Specialty Start Date End Date Alma Mcdaniel MD [address] [facility] [place], [place] [phone] PCP - General Family Medicine 08/05/22 Alexandria Disla RN [address] [facility] [place] [address] Registered Nurse Family Medicine 10/15/23 Sheldon Durham DO [address] [place] [address] Otolaryngology 03/03/24 Zoraida Rodriguez NP [address] [facility] [address] [place], [place] [address] Nurse Practitioner Family Medicine 08/23/24 documented as of this encounter
--- OUTSIDE RECORDS SUMMARY | 2024-10-25 09:36 | XMS_ITS | Encounter Summary ---
Author Organization [facility] Address [address] [place] [address] Care Team Providers Care Film Processing Utility Worker Name Role Phone Alma Mcdaniel MD Primary Care Provider [phone] Alma Mcdaniel MD Unavailable Alexandria Disla RN Unavailable [phone] Sheldon Durham DO Unavailable [phone] Zoraida Rodriguez NP Unavailable [phone] Encounter Details Date Type Department Care Team (Latest Contact Info) Description 10/16/2024 Travel Social History Tobacco Use Types Packs/Day [...] How often do you attend chur or adventism services? More than 4 times per year 10/15/2023 Do you belong to any clubs o r organizations such as hinduism groups, unions, fraternal or athletic groups, or [...] Recorded Patient Health Questionnaire-2 Score 0 08/05/2022 [facility] of Occupat ionma Health - Occupational Stress Questionnaire Answer Date [...] [facility] [address] [place] [address] Sheldon Durham, [address] [address] 11/20/2024 8:00 AM EDT Office Visit [facility] [address] [facility] [place] [address] Zoraida Rodriguez NP [address] [facility] [place] [address] documented as of this encounter Goals Goal [...] documented as of this encounter Care Teams Film Processing Utility Worker Relationship Specialty Start Date End Date Alma Mcdaniel MD [address] [place] [address] PCP - General Family Medicine 08/05/22 Alma Mcdaniel MD [address] [facility] [place] [address] PCP - Medical [place] [employer] 06/27/18 10/16/24 Alexandria Disla, LAYTON [address] [place] [address] Registered Nurse Family Medicine 10/15/23 Sheldon Durham DO [address] [place] [address] Otolaryngology 03/03/24 Zoraida Rodriguez NP [address] [place] [address] Nurse Practitioner Family Medicine 08/23/24 documented as of this encounter
--- OUTSIDE RECORDS SUMMARY | 2024-10-25 09:36 | XMS_ITS | Encounter Summary ---
Author Organization [facility] Address [address] [place] [address] Care Team Providers Care Wet Room Worker Name Role Phone Alma Mcdaniel MD Primary Care Provider [phone] Ayse Carmona MEDIA RECONCILIATION SPECIALIST Unavailable [phone] Alma Mcdaniel MD Unavailable Alexandria Disla RN Unavailable [phone] Sheldon Durham DO Unavailable [phone] Zoraida Rodriguez NP Unavailable [phone] Reason for Visit * Reason Onset Date Comments Med Refill 01/02/2024 Encounter Details Date Type Department Care Team (Late st Contact Info) Description 01/02/2024 Refill [facility] Family Medicine [address] [place] [address] Stephanie Pelayo NP Type 2 diabetes mellitus with hyperosmolarity without coma, without long-term current use of insulin (HCC) Social History Tobacco Use Types Packs/Day Years [...] How often do you attend chur or restoration services? More than 4 times per year 10/15/2023 Do you belong to any clubs o r organizations such as scientologist groups, unions, fraternal or athletic groups, or [...] Recorded Patient Health Questionnaire-2 Score 0 08/05/2022 [facility] of Occupat ional Health - [...] place to sleep or slept in a intermediate (including now)? No 08/05/2022 Housing Stability Vital Sign Answer August e Recorded In the last 12 months, was t here a time when you were not able to pay the mortgage or rent on time? No 10/15/2023 In the past 12 months, how m any times have you moved where you were living? 0 10/15/2023 At any time in the past 12 m [facility], were you homeless or living in a intermediate (including now)? No 10/15/2023 Comments Unknown Sex and Gender Information Value Date Recorded Sex Assigned at Not on file Legal Sex Female 7:23 PM EDT Gender Identity Not on file Sexual Orientation Not on file documented as of this encounter Miscellaneous Notes * Telephone Encounter - Alma Mcdaniel MD - 01/03/2024 10:42 AM EST documented in this encounter Plan of Treatment Upcoming Encounters Date Type Department Care Team (Late st Contact Info) Description 10/26/2024 10:45 AM EDT Office Visit [facility] [address] [place] [place] [address] Sheldon Durham DO [address] [place] [address] 11/20/2024 8:00 AM EDT Office Visit [facility] [address] [place] [address] Zoraida Rodriguez NP [address] [place] [address] documented as of this encounter Visit Diagnoses Diagnosis Type 2 diabetes mellitus with hyperosmolarity without coma, without long-term current use of insulin (HCC) documented in this encounter Care Teams Wet Room Worker Relationship Specialty Start Date End Date Alma Mcdaniel MD [address] [facility] [place] [address] PCP - General Family Medicine 08/05/22 Alma Mcdaniel MD [address] [place] [address] PCP - Medical [place] [employer] 06/27/18 10/16/24 Ayse Carmona NP [address] [facility] [place] [address] Nurse Practitioner Family Medicine 08/05/22 08/22/24 Alexandria Disla, RN [address] [place] [address] Registered Nurse Family Medicine 10/15/23 Sheldon Durham DO [address] [place] [address] Otolaryngology 03/03/24 Zoraida Rodriguez NP [address] [place] [address] Nurse Practitioner Family Medicine 08/23/24 documented as of this encounter
--- OUTSIDE RECORDS SUMMARY | 2024-10-25 09:36 | XMS_ITS | Encounter Summary ---
Author Organization [facility] Address [address] [facility] [place] [address] Care Team Providers Care Hvac Operations Technician Name Role Phone Alma Mcdaniel MD Primary Care Provider [phone] Ayse Carmona GRAIN ORIGINATION SPECIALIST Unavailable [phone] Alma Mcdaniel MD Unavailable Alexandria Disla RN Unavailable [phone] Sheldon Durham DO Unavailable [phone] Zoraida Rodriguez GRAIN ORIGINATION SPECIALIST Unavailable [phone] Encounter Details Date Type Department Care Team (Late st Contact Info) Description 06/09/2023 Abstract [facility] Family Medicine [address] [place] [address] Alma Mcdaniel MD [address] [place], [place] [phone] Social History Tobacco Use Types Packs/Day Years [...] How often do you attend chur or jain services? 1 to 4 times per year 08/05/2022 Do you belong to any clubs o r organizations such as taoist groups, unions, fraternal or athletic groups, or [...] Recorded Patient Health Questionnaire-2 Score 0 08/05/2022 [facility] of Occupat ional Health - Occupational Stress [...] place to sleep or slept in a half-way (including now)? No 08/05/2022 Comments Unknown Sex [...] Visit [facility] [address] [place] [address] Sheldon Durham DO [address] [place] [address] 11/20/2024 8:00 AM EDT Office Visit [facility] [address] [place] [facility] [place] [address] Zoraida Rodriguez NP [address] [facility] [place] [address] documented as of this encounter Visit Diagnoses Not on filedocumented in this encounter Care Teams Hvac Operations Technician Relationship Specialty Start Date End Date Alma Mcdaniel MD [address] [facility] [place] [address] PCP - General Family Medicine 08/05/22 Alma Mcdaniel MD [address] [place] [address] PCP - Medical [place] [employer] 06/27/18 10/16/24 Ayse Carmona NP [address] [place] [address] Nurse Practitioner Family Medicine 08/05/22 08/22/24 Alexandria Disla, LAYTON [address] [place] [address] Registered Nurse Family Medicine 10/15/23 Sheldon Durham DO [address] [place] [address] Otolaryngology 03/03/24 Zoraida Rodriguez NP [address] [place] [address] Nurse Practitioner Family Medicine 08/23/24 documented as of this encounter
--- OUTSIDE RECORDS SUMMARY | 2024-10-25 09:36 | XMS_ITS | Encounter Summary ---
Author Organization [facility] Address [address] [place] [address] Care Team Providers Care Director Of Industrial Relations Name Role Phone Alma Mcdaniel MD Primary Care Provider [phone] Ayse Carmona NET SOLUTIONS ARCHITECT Unavailable [phone] Alma Mcdaniel MD Unavailable Alexandria Disla RN Unavailable [phone] Sheldon Durham DO Unavailable [phone] Zoraida Rodriguez NP Unavailable [phone] Encounter Details Date Type Department Care Team (Late st Contact Info) Description 10/12/2023 External Result Encounter [facility] External Department Unsolicited Donna Crawford NP [address] [facility] [address] [place] [address] Social History Tobacco Use Types Packs/Day Years [...] How often do you attend chur or muslim services? More than 4 times per year 10/15/2023 Do you belong to any clubs o r organizations such as oriental orthodox groups, unions, fraternal or athletic groups, [...] Recorded Patient Health Questionnaire-2 Score 0 08/05/2022 [facility] of Occupat ional Health - Occupational Stress [...] in a assisted (including now)? No 08/05/2022 Housing Stability Vital [...] were you homeless or living in a assisted (including now)? No 10/15/2023 Comments Unknown Sex [...] Assessment Author Never 10/15/2023 9:30 AM EDT Ashlynt, Generic * Q2: How many drinks containing alcohol do you have on a typical day when you are drinking? Answer Date of Assessment Author Patient does not drink 10/15/2023 9:30 AM EDT My chart, Generic * Q3: How often do you have six or more drinks on one occasion? Answer Date of Assessment Author Never 10/15/2023 9:30 AM EDT Ashlynt, Generic documented as of this encounter Plan of Treatment Upcoming Encounters Date Type Department Care Team (Late st Contact Info) Description 10/26/2024 10:45 AM EDT Office Visit [facility] Ot[facility] [address] [place] [address] Sheldon Durham DO [address] [place] [address] 11/20/2024 8:00 AM EDT Office Visit [facility] [address] [place] [address] Zoraida Rodriguez NP [address] [place], [place] [address] documented as of this encounter Procedures Procedure Name Priority Date/Time Associated Diagnosis Comments XR TIBIA FIBULA 2 VIEWS LEFT 10/12/2023 3:01 PM EDT documented in this encounter Results * XR tibia fibula 2 views left (10/12/2023 3:01 PM EDT) Anatomical Region Laterality Modality Lower Extremities, Lower Leg Left Rad iographic Imaging 10/12/2023 3:01 PM EDT Impressions 10/12/2023 3:07 PM EDT NO ACUTE BONY FINDINGS. LEFT TIB-FIB - 2 views COMPARISON: None AP and lateral views were obtained. The knee is not included in its entirety on the lateral view since there is a separate knee study. No acute fracture or dislocation is identified. There is diffuse soft tissue prominence related to body habitus. Subcutaneous edema is noted. IMPRESSION: NO ACUTE BONY FINDINGS. Impression dictated by: Tonja Newman M.D.10/12/2023 3:04 PM Dictation Location: [place] [address] Transcribed By: [facility] 10/12/23 1504 Dictated By: Tonja Newman MD 10/12/23 1501 Signed By: <Electronically signed by MD Tonja Newman in OV> 10/12/23 1504 Narrative 10/12/2023 3:07 PM ED[place] [address] XRay Report Signed Patient: Kaylynn Talamantes MR#: [id number] : 1960 Acct:[id number] Age/Sex: 63 / F ADM Date: 10/12/23 Loc: ER Room: Type: [facility] ER Attending Dr: Copies to: Donna Crawford APRN Ordering Provider: Donna Crawford APRN Date of Service: 10/12/23 XR/XR knee LT 4V*: Extremity Injury, Lower ([id number]) XR/XR tibia fibula LT 2V*: Extremity Injury, Lower CLINICAL DATA: Left anterior knee pain radiating down the piña to the ankle. No injury. LEFT KNEE - 4 views COMPARISON: None AP, lateral and both oblique views were obtained. There is osteopenia. No acute fracture or dislocation is identified. There is no disproportionate joint space narrowing. There is minor squaring off of the articular margins. There is a trace amount joint fluid. Soft tissues are diffusely prominent related to body habitus. There is subcutaneous edema. XR/XR knee LT 4V* Procedure Note Radiology, Radiologist, - 10/12/2023 [facility] Main [address] [address] XRay Report Signed Patient: Kaylynn Talamantes DMR#: [id number] : 1960cct:[id number] Age/Sex: 63 / FADM Date: 10/12/23 Loc: ER Room:Type: [facility] ER Attending Dr: Copies to: Donna Crawford APRN Ordering Provider: Donna Crawford APRN Date of Service: 10/12/23 XR/XR knee LT 4V*: Extremity Injury, Lower ([id number]) XR/XR tibia fibula LT 2V*: Extremity Injury, Lower CLINICAL DATA: Left anterior knee pain radiating down the piña to theankle. No injury. LEFT KNEE - 4 views COMPARISON: None AP, lateral and both oblique views were obtained. There is osteopenia.No acute fracture or dislocation is identified. There is no disproportionate joint spacenarrowing. There is minor squaring off of the articular margins. There is a trace amount jointfluid. Soft tissues are diffusely prominent related to body habitus. There is subcutaneous edema. XR/XR knee LT 4V* IMPRESSION: NO ACUTE BONY FINDINGS. LEFT TIB-FIB - 2 views COMPARISON: None AP and lateral views were obtained. The knee is not included in itsentirety on the lateral view since there is a separate knee study. No acute fracture or dislocation isidentified. There is diffuse soft tissue prominence related to body habitus. Subcutaneousedema is noted. IMPRESSION: NO ACUTE BONY FINDINGS. Impression dictated by: Tnoja Newman M.D.10/12/2023 3:04 PM Dictation Location: [place] [address] Transcribed By: [facility] 10/12/23 1504 Dictated By: Tonja Newman MD 10/12/23 1501 Signed By: <Electronically signed by MD Tonja Newman in OV> 10/12/23 1504 us Donna Crawford NET SOLUTIONS ARCHITECT IMG XR PROCEDURES Final R esult documented in this encounter Visit Diagnoses Not on filedocumented in this encounter Care Teams Director Of Industrial Relations Relationship Specialty Start Date End Date Alma Mcdaniel MD [address] [place] [address] PCP - General Family Medicine 08/05/22 Alma Mcdaniel MD [facility] [place], [place] [address] PCP - Medical [place] [employer] 06/27/18 10/16/24 Ayse Carmona NP [address] [place] [address] Nurse Practitioner Family Medicine 08/05/22 08/22/24 Alexandria Disla, LAYTON [address] [place] [address] Registered Nurse Family Medicine 10/15/23 Sheldon Durham DO [address] [place] [address] Otolaryngology 03/03/24 Zoraida Rodriguez NP [facility] [place] [address] Nurse Practitioner Family Medicine 08/23/24 documented as of this encounter
--- OUTSIDE RECORDS SUMMARY | 2024-10-25 09:36 | XMS_ITS | Clinical Summary ---
Author Organization [facility] Address [address] [place] [address] Phone Care Team Providers Care Uncrater Name Role Phone Unavailable Primary Care Provider Unavailabl e Encounters Date Type Department Care Team Description 09/28/2024 Orders Only [facility] [address] [place] [address] Pedro Luis Roper MD from Last 3 Months Social History Tobacco Use Types Packs/Day Years Used Date Smoking Tobacco: Never Assessed Comments Unknown Sex and Gender Information Value Date Recorded Sex Assigned at Not on file Legal Sex Female 4:01 PM EST Gender Identity Not on file Sexual Orientation Not on file Plan of Treatment Not on file Procedures Procedure Name Priority Date/Time Associated Diagnosis Comments NON-[facility] MRSA - MSSA NASAL PCR Routine 09/28/2024 1:00 PM EDT from Last 3 Months Results * NON-[facility] MRSA - MSSA NASAL PCR (09/28/2024 1:00 PM EDT) [facility] Specimen from nasal fossae 09/28/2024 1:00 PM EDT Narrative [facility] - 09/28/2024 2:41 PM EDT MRSA Result MRSA Negative MSSA Result MSSA Negative Real-time PCR Test performed by real-time PCR Reference Range Reference Range for all targets = Neg / Not Detected Reference Note 20 Reference Note 26 PERFORMED BY: [facility] [address] [facility]. [place] [id number] PATHOLOGIST RESEARCH STATISTICIAN CHRISTOPHER PEDROZA M.D. us Pedro Luis Roper MD LAB BLOOD ORDERABLES Final Resul t [facility] [address] [place] [address], [place] from Last 3 Months
--- OUTSIDE RECORDS SUMMARY | 2024-10-25 09:36 | XMS_ITS | Encounter Summary ---
Author Organization [facility] Address [address] [facility] [place] [address] Care Team Providers Care Continuity Coordinator Name Role Phone Alma Mcdaniel MD Primary Care Provider [phone] Alma Mcdaniel MD Unavailable Alexandria Disla RN Unavailable [phone] Sheldon Durham DO Unavailable [phone] Zoraida Rodriguez NP Unavailable [phone] Encounter Details Date Type Department Care Team (Late st Contact Info) Description 10/16/2024 Bamboo flowsheet [facility] Family Medicine [address] [place] [address] Zoraida Rodriguez NP [address] [place], [place] [address] Social History Tobacco Use Types Packs/Day Years [...] How often do you attend chur or hindu services? More than 4 times per year [...] Recorded Patient Health Questionnaire-2 Score 0 08/05/2022 [facility] - Occupational Stress Questionnaire Answer Date [...] place to sleep or slept in a fdc (including now)? No 08/05/2022 Housing Stability Vital Sign Answer August e Recorded In the last 12 months, was t here a time when you were not able to pay the mortgage or rent on time? No 10/15/2023 In the past 12 months, how m any times have you moved where you were living? 0 10/15/2023 At any time in the past 12 m [facility], were you homeless or living in a fdc (including now)? No 10/15/2023 Comments Unknown Sex and Gender Information Value Date Recorded Sex Assigned at Not on file Legal Sex Female 7:23 PM EDT Gender Identity Not on file Sexual Orientation Not on file documented as of this encounter Plan of Treatment Upcoming Encounters Date Type Department Care Team (Late st Contact Info) Description 10/26/2024 10:45 AM EDT Office Visit [facility] [place] [facility] [address] [place] [address] Sheldon Durham DO [address] [place] [address] 11/20/2024 8:00 AM EDT Office Visit [facility] [address] [place] [address] Zoraida Rodriguez NP [address] [place], [place] [address] documented as of this encounter Goals Goal [...] documented as of this encounter Care Teams Continuity Coordinator Relationship Specialty Start Date End Date Alma Mcdaniel MD [address] [place] [address] PCP - General Family Medicine 08/05/22 Alma Mcdaniel MD [address] [place] [address] PCP - Medical [place] [employer] 06/27/18 10/16/24 Alexandria Disla, RN [address] [place] [address] Registered Nurse Family Medicine 10/15/23 Sheldon Durham DO [address] [place] [address] Otolaryngology 03/03/24 Zoraida Rodriguez NP [address] [place] [address] Nurse Practitioner Family Medicine 08/23/24 documented as of this encounter
--- OUTSIDE RECORDS SUMMARY | 2024-10-25 09:36 | XMS_ITS | Encounter Summary ---
Author Organization [facility] Address [address] [place] [address] Care Team Providers Care Dry Box Tender Name Role Phone Alma Mcdaniel MD Primary Care Provider [phone] Alma Mcdaniel MD Unavailable Alexandria Disla RN Unavailable [phone] Sheldon Durham DO Unavailable [phone] Zoraida Rodriguez NP Unavailable [phone] Encounter Details Date Type Department Care Team (Late st Contact Info) Description 10/13/2024 Bamboo flowsheet [facility] Otol[facility] [address] [place] [address] Sheldon Durham DO [address] [place] [address] Social History Tobacco Use Types Packs/Day Years [...] often do you attend [facility] or spiritism services? More than 4 times per year 10/15/2023 Do you belong to any clubs o r organizations such as lutheran groups, unions, fraternal or athletic groups, or [...] Recorded Patient Health Questionnaire-2 Score 0 08/05/2022 [facility] of Occupat ional Health - Occupational [...] place to sleep or slept in a residential (including now)? No 08/05/2022 Housing Stability Vital Sign Answer August e Recorded In the last 12 months, was t here a time when you were not able to pay the mortgage or rent on time? No 10/15/2023 In the past 12 months, how m any times have you moved where you were living? 0 10/15/2023 At any time in the past 12 m [facility], were you homeless or living in a residential (including now)? No 10/15/2023 Comments Unknown Sex [...] Visit [facility] [address] [place] [address] Sheldon Durham DO [address] [place] [address] 11/20/2024 8:00 AM EDT Office Visit [facility] [address] [place] [address] Zoraida Rodriguez NP [address] [place] [address] documented as of this encounter Goals Goal [...] documented as of this encounter Care Teams Dry Box Tender Relationship Specialty Start Date End Date Alma Mcdaniel MD [address] [place] [address] PCP - General Family Medicine 08/05/22 Alma Mcdaniel MD [address] [place] [address] PCP - Medical [place] [employer] 06/27/18 10/16/24 Alexandria Disla, RN [address] [place] [address] Registered Nurse Family Medicine 10/15/23 Sheldon Durham DO [address] [place] [address] Otolaryngology 03/03/24 Zoraida Rodriguez NP [address] [place] [address] Nurse Practitioner Family Medicine 08/23/24 documented as of this encounter
--- OUTSIDE RECORDS SUMMARY | 2024-10-25 09:36 | XMS_ITS | Encounter Summary ---
Author Organization [facility] Address [address] [facility] [place] [address] Care Team Providers Care Reservoir Engineering Consultant Name Role Phone Alma Mcdaniel MD Primary Care Provider [phone] Ayse Carmona PUBLIC INFORMATION OFFICER Unavailable [phone] Alma Mcdaniel MD Unavailable Alexandria Disla RN Unavailable [phone] Sheldon Durham DO Unavailable [phone] Zoraida Rodriguez PUBLIC INFORMATION OFFICER Unavailable Encounter Details Date Type Department Care Team (Late st Contact Info) Description 03/03/2024 Abstract [facility] Family Medicine [address] [place] [address] Alma Mcdaniel MD [address] [place], [place] [id number] Social History Tobacco Use Types Packs/Day Years [...] How often do you attend [facility] or taoist services? More than 4 times per year 10/15/2023 Do you belong to any clubs o r organizations such as orthodoxy groups, unions, fraternal or athletic groups, or [...] Recorded Patient Health Questionnaire-2 Score 0 08/05/2022 [facility] [place] of Occupat ional Health - Occupational Stress [...] place to sleep or slept in a halfway (including now)? No 08/05/2022 Housing Stability Vital Sign Answer August e Recorded In the last 12 months, was t here a time when you were not able to pay the mortgage or rent on time? No 10/15/2023 In the past 12 months, how m any times have you moved where you were living? 0 10/15/2023 At any time in the past 12 m [facility], were you homeless or living in a halfway (including now)? No 10/15/2023 Comments Unknown Sex [...] Office Visit [facility] [address] [place] [address] Sheldon Durham DO [address] [place] [address] 11/20/2024 8:00 AM EDT Office Visit [facility] [address] [facility] [place] [address] Zoraida Rodriguez NP [address] [facility] [place] [address] documented as of this encounter Visit Diagnoses Not on filedocumented in this encounter Care Teams Reservoir Engineering Consultant Relationship Specialty Start Date End Date Alma Mcdaniel MD [address] [facility] [place] [address] PCP - General Family Medicine 08/05/22 Alma Mcdaniel MD [address] [facility] [place] [address] PCP - Medical [place] [employer] 06/27/18 10/16/24 Ayse Carmona NP [address] [facility] [place] [address] Nurse Practitioner Family Medicine 08/05/22 08/22/24 Alexandria Disla, L[place]TON [address] [facility] [place] [address] Registered Nurse Family Medicine 10/15/23 Sheldon Durham DO [address] [place] [address] Otolaryngology 03/03/24 Zoraida Rodriguez NP [address] [place] [address] Nurse Practitioner Family Medicine 08/23/24 documented as of this encounter
--- OUTSIDE RECORDS SUMMARY | 2024-10-25 09:36 | XMS_ITS | Encounter Summary ---
Author Organization [facility] Address [address] [place] [address] Care Team Providers Care Cook Short Order Name Role Phone Alma Mcdaniel MD Primary Care Provider [phone] Ayse Carmona COMMERCIAL INSTRUCTOR SUPERVISOR Unavailable [phone] Alma Mcdaniel MD Unavailable Alexandria Disla RN Unavailable [phone] Sheldon Durham DO Unavailable [phone] Zoraida Rodriguez COMMERCIAL INSTRUCTOR SUPERVISOR Unavailable [phone] Encounter Details Date Type Department Care Team (Late Contact Info) Description 09/12/2018 Abstract [facility] [address] [place] [phone] Perla Caruso, [facility] [address] [place] [address] Social History Tobacco Use Types Packs/Day Years [...] Visit [facility] Otol[facility] [address] [place] [address] Sheldon Durham DO [address] [place] [address] 11/20/2024 8:00 AM EDT [facility] [address] [facility] [place] [address] Zoraida Rodriguez NP [address] [facility] [place] [address] documented as of this encounter Visit Diagnoses Not on filedocumented in this encounter Care Teams Cook Short Order Relationship Specialty Start Date End Date Alma Mcdaniel MD [facility] [place] [address] PCP - General Family Medicine 08/05/22 Alma Mcdaniel MD [address] [facility] [place] [address] PCP - Medical [place] [employer] 06/27/18 10/16/24 Ayse Carmona NP [facility] [place] [address] Nurse Practitioner Family Medicine 08/05/22 08/22/24 Alexandria Disla, RN [address] [facility] [place] [address] Registered Nurse Family Medicine 10/15/23 Sheldon Durham DO [address] [place] [address] Otolaryngology 03/03/24 Zoraida Rodriguez NP [facility] [place] [address] Nurse Practitioner Family Medicine 08/23/24 documented as of this encounter
--- OUTSIDE RECORDS SUMMARY | 2024-10-25 09:37 | XMS_ITS | Encounter Summary ---
Author Organization [facility] Address [address] [place] [address] Care Team Providers Care Teacher Assistant Name Role Phone Alma Mcdaniel MD Primary Care Provider [phone] Ayse Carmona DENTAL LABORATORY TECHNICIAN Unavailable [phone] Alma Mcdaniel MD Unavailable Alexandria Disla RN Unavailable [phone] Sheldon Durham DO Unavailable [phone] Zoraida Rodriguez NP Unavailable [phone] Reason for Visit * Reason Comments Med Refill Encounter Details Date Type Department Care Team (Late st Contact Info) Description 11/03/2022 Refill [facility] Family Medicine [address] [place] [address] Ayse Carmona, DENTAL LABORATORY TECHNICIAN [address] [place] [address] Gastroesophageal reflux disease without esophagitis (Primary Dx) Social History Tobacco Use Types Packs/Day Years Used Date Smoking Tobacco: Every Day Cigarettes Smokeless Tobacco: Never Alcohol Use Standard Drinks/Week Comments Never 0 (1 standard drink = 0.6 oz pur e alcohol) caffeine:1-2 cups per day Humiliation, Afraid, Rape, and Kick questionnair e [...] any clubs o r organizations such as episcopalian groups, unions, fraternal or athletic groups, or [...] Recorded Patient Health Questionnaire-2 Score 0 08/05/2022 [facility] of Occupat ional Health - Occupational [...] in a residential (including now)? No 08/05/2022 Comments Unknown Sex and Gender Information Value Date Recorded Sex Assigned at Not on file Legal Sex Female 7:23 PM EDT Gender Identity Not on file Sexual Orientation Not on file documented as of this encounter Miscellaneous Notes * Telephone Encounter - Alma Mcdaniel MD - 11/03/2022 8:29 AM EDT Approvals with refills documented in this encounter Plan of Treatment Upcoming Encounters Date Type Department Care Team (Late st Contact Info) Description 10/26/2024 10:45 AM EDT Office Visit [facility] Otolaryngology [address] [place] [address] Sheldon Durham DO [address] [place] [address] 11/20/2024 8:00 AM EDT Office Visit [place] [address] [facility] ([place] [place]) [place] [address] Zoraida Rodriguez NP [address] [place] [address] documented as of this encounter Visit Diagnoses Diagnosis Gastroesophageal reflux disease without esophagitis- Primary Esophageal reflux documented in this encounter Care Teams Teacher Assistant Relationship Specialty Start Date End Date Alma Mcdaniel MD [facility] [place] [place] [address] PCP - General Family Medicine 08/05/22 Alma Mcdaniel MD [facility]9 [place] [address] PCP - Medical [place] [employer] 06/27/18 10/16/24 Ayse Carmona NP [facility]9 [place] [address] Nurse Practitioner Family Medicine 08/05/22 08/22/24 Alexandria Disla, LAYTON [address] [place] [address] Registered Nurse Family Medicine 10/15/23 Sheldon Durham DO [address] [place] [address] Otolaryngology 03/03/24 Zoraida Rodriguez NP [address] [place] [address] Nurse Practitioner Family Medicine 08/23/24 documented as of this encounter
--- OUTSIDE RECORDS SUMMARY | 2024-10-25 09:37 | XMS_ITS | Encounter Summary ---
Author Organization [facility] Address [address] [facility] [place] [address] Care Team Providers Care Stamp Machine Servicer Name Role Phone Alma Mcdaniel MD Primary Care Provider [phone] Ayse Carmona SKI TOP TRIMMER Unavailable [phone] Alma Mcdaniel MD Unavailable Alexandria Disla RN Unavailable [phone] Sheldon Durham DO Unavailable [phone] Zoraida Rodriguez SKI TOP TRIMMER Unavailable [phone] Encounter Details Date Type Department Care Team (Late st Contact Info) Description 04/01/2024 Abstract [facility] Family Medicine [address] [place] [address] Alma Mcdaniel MD [address] [place], [place] [address] Social History Tobacco Use Types Packs/Day Years [...] week 10/15/2023 How often do you attend [facility] or rastafari services? More than 4 times per year 10/15/2023 Do you belong to any clubs o r organizations such as anabaptist groups, unions, fraternal or athletic groups, or [...] Recorded Patient Health Questionnaire-2 Score 0 08/05/2022 [facility] [place] of Occupat ional Health - Occupational Stress [...] any time in the past 12 m [facility], were you homeless or living in a [...] Office Visit [facility] [address] [place] [address] Sheldon Durham DO [address] [place] [address] 11/20/2024 8:00 AM EDT Office Visit [facility] [address] [facility] [place] [address] Zoraida Rodriguez NP [address] [facility] [place] [address] documented as of this encounter Visit Diagnoses Not on filedocumented in this encounter Care Teams Stamp Machine Servicer Relationship Specialty Start Date End Date Alma Mcdaniel MD [address] [facility] [place] [address] PCP - General Family Medicine 08/05/22 Alma Mcdaniel MD [address] [facility] [place] [address] PCP - Medical [place] [employer] 06/27/18 10/16/24 Ayse Carmona NP [address] [facility] [place] [address] Nurse Practitioner Family Medicine 08/05/22 08/22/24 Alexandria Disla, LAYTON [address] [facility] [place] [address] Registered Nurse Family Medicine 10/15/23 Sheldon Durhma DO [address] [place] [address] Otolaryngology 03/03/24 Zoraida Rodriguez NP [address] [place] [address] Nurse Practitioner Family Medicine 08/23/24 documented as of this encounter
--- OUTSIDE RECORDS SUMMARY | 2024-10-25 09:37 | XMS_ITS | Encounter Summary ---
Author Organization [facility] Address [address] [place] [address] Care Team Providers Care A And P Mechanic Name Role Phone Alma Mcdaniel MD Primary Care Provider [phone] Ayse Carmona DERRICK WORKER WELL SERVICE Unavailable [phone] Alma Mcdaniel MD Unavailable Alexandria Disla RN Unavailable Sheldon Durham DO Unavailable [phone] Zoraida Rodriguez DERRICK WORKER WELL SERVICE Unavailable [phone] Encounter Details Date Type Department Care Team (Late Contact Info) Description 09/13/2013 Abstract [facility] [address] [place] [phone] Perla Caruso, [facility] [address] [place] [address] Social History Tobacco Use Types Packs/Day Years [...] Visit [facility] Otolaryngology [address] [place] [address] Sheldon Durham DO [address] [place] [address] 11/20/2024 8:00 AM EDT Office [facility] [address] [facility] [place] [address] Zoraida Rodriguez NP [address] [facility] [place] [address] documented as of this encounter Visit Diagnoses Not on filedocumented in this encounter Care Teams A And P Mechanic Relationship Specialty Start Date End Date Alma Mcdaniel MD [facility]9 [facility] [place] [address] PCP - General Family Medicine 08/05/22 Alma Mcdaniel MD [address] [facility] [place] [address] PCP - Medical [place] [employer] 06/27/18 10/16/24 Ayse Carmona NP [facility]9 [facility] [place] [address] Nurse Practitioner Family Medicine 08/05/22 08/22/24 Alexandria Disla, RN [address] [facility] [place] [address] Registered Nurse Family Medicine 10/15/23 Sheldon Durham DO [address] [place] [address] Otolaryngology 03/03/24 Zoraida Rodriguez NP [facility] [place] [address] Nurse Practitioner Family Medicine 08/23/24 documented as of this encounter
--- OUTSIDE RECORDS SUMMARY | 2024-10-25 09:37 | XMS_ITS | Encounter Summary ---
Author Organization [facility] Address [address] [place] [address] Care Team Providers Care Customer Service Correspondence Clerk Name Role Phone Alma Mcdaniel MD Primary Care Provider [phone] Ayse Carmona OIL ANALYST Unavailable [phone] Alma Mcdaniel MD Unavailable Alexandria Disla RN Unavailable [phone] Sheldon Durham DO Unavailable [phone] Zoraida Rodriguez OIL ANALYST Unavailable [phone] Encounter Details Date Type Department Care Team (Late Contact Info) Description 11/29/2018 Abstract [facility] [address] [place] [address] Perla Caruso, [facility] [address] [place] [address] Social History Tobacco Use Types Packs/Day Years [...] Visit [facility] J[facility] Otolaryngology [address] [place] [address] Sheldon Durham DO [address] [place] [address] 11/20/2024 8:00 AM EDT Office [facility] [address] [facility] [place] [address] Zoraida Rodriguez NP [address] [facility] [place] [address] documented as of this encounter Visit Diagnoses Not on filedocumented in this encounter Care Teams Customer Service Correspondence Clerk Relationship Specialty Start Date End Date Alma Mcdaniel MD [facility]9 [facility] [place] [address] PCP - General Family Medicine 08/05/22 Alma Mcdaniel MD [address] [facility] [place] [address] PCP - Medical [place] [employer] 06/27/18 10/16/24 Ayse Carmona NP [facility]9 [facility] [place] [address] Nurse Practitioner Family Medicine 08/05/22 08/22/24 Alexandria Disla, RN [address] [facility] [place] [address] Registered Nurse Family Medicine 10/15/23 Sheldon Durham DO [address] [place] [address] Otolaryngology 03/03/24 Zoraida Rodriguez NP [facility] [place] [address] Nurse Practitioner Family Medicine 08/23/24 documented as of this encounter
--- OUTSIDE RECORDS SUMMARY | 2024-10-25 09:37 | XMS_ITS | Encounter Summary ---
Author Organization [facility] Address [address] [place] [address] Care Team Providers Care Travel Counselor Name Role Phone Alma Mcdaniel MD Primary Care Provider [phone] Ayse Carmona HEALTH CAREERS INSTRUCTOR Unavailable [phone] Alma Mcdaniel MD Unavailable Alexandria Disla RN Unavailable [phone] Sheldon Durham DO Unavailable [phone] Zoraida Rodriguez HEALTH CAREERS INSTRUCTOR Unavailable [phone] Encounter Details Date Type Department Care Team (Late Contact Info) Description 12/13/2018 Abstract [facility] [address] [place] [phone] Perla Caruso, [facility] [address] [place] [address] Social History Tobacco Use Types Packs/Day Years [...] Visit [facility] [address] [place] [address] Sheldon Durham DO [address] [place] [address] 11/20/2024 8:00 AM EDT [facility] [address] [facility] [place] [address] Zoraida Rodriguez NP [address] [facility] [place] [address] documented as of this encounter Visit Diagnoses Not on filedocumented in this encounter Care Teams Travel Counselor Relationship Specialty Start Date End Date Alma Mcdaniel MD [facility]9 [facility] [place] [address] PCP - General Family Medicine 08/05/22 Alma Mcdaniel MD [address] [facility] [place] [address] PCP - Medical [place] [employer] 06/27/18 10/16/24 Ayse Carmona NP [facility]9 [facility] [place] [address] Nurse Practitioner Family Medicine 08/05/22 08/22/24 Alexandria Disla, RN [address] [facility] [place] [address] Registered Nurse Family Medicine 10/15/23 Sheldon Durham DO [address] [place] [address] Otolaryngology 03/03/24 Zoraida Rodriguez NP [facility]9 [place] [address] Nurse Practitioner Family Medicine 08/23/24 documented as of this encounter
--- OUTSIDE RECORDS SUMMARY | 2024-10-25 09:37 | XMS_ITS | Encounter Summary ---
Author Organization [facility] Address [address] [place] [address] Care Team Providers Care Pediatric Geneticist Name Role Phone Alma Mcdaniel MD Primary Care Provider [phone] Ayse Carmona SPOT MAN Unavailable [phone] Alma Mcdaniel MD Unavailable Alexandria Disla RN Unavailable [phone] Sheldon Durham DO Unavailable [phone] Zoraida Rodriguez NP Unavailable [phone] Reason for Visit * Reason Comments Med Refill Encounter Details Date Type Department Care Team (Late st Contact Info) Description 08/13/2022 Refill [facility] Family Medicine [address] [place] [address] Ayse Carmona, SPOT MAN [address] [place] [address] Migraine aura occurring with and without headache (Primary Dx) Social History Tobacco Use Types Packs/Day Years Used Date Smoking Tobacco: Never Smokeless Tobacco: Never Humiliation, Afraid, Rape, and Kick questionnair e [...] How often do you attend chur or scientologist services? 1 to 4 times per year [...] Recorded Patient Health Questionnaire-2 Score 0 08/05/2022 [facility] [place] of Occupat ional Health - Occupational Stress [...] a group home (including now)? No 08/05/2022 Comments Unknown Sex and Gender Information Value Date Recorded Sex Assigned at Not on file Legal Sex Female 7:23 PM EDT Gender Identity Not on file Sexual Orientation Not on file COVID-19 Exposure Response Date Recorded In the last 10 days, have yo u been in contact with someone who was confirmed or suspected to have Coronavirus/COVID-19? No / Unsure 08/05/2022 5:25 PM EDT documented as of this encounter Miscellaneous Notes * Telephone Encounter - Alma Mcdaniel MD - 08/13/2022 12:17 PM EDT Approvals with refills documented in this encounter Plan of Treatment Upcoming Encounters Date Type Department Care Team (Late st Contact Info) Description 10/26/2024 10:45 AM EDT Office Visit [facility] [place] [facility] [address] [place] [address] Sheldon Durham DO [address] [place] [address] 11/20/2024 8:00 AM EDT Office Visit [facility] [address] [facility] [place] [address] Zoraida Rodriguez NP [address] [facility] [place] [address] documented as of this encounter Visit Diagnoses Diagnosis Migraine aura occurring with and without headache- Primary documented in this encounter Care Teams Pediatric Geneticist Relationship Specialty Start Date End Date Alma Mcdaniel MD [address] [facility] [place] [address] PCP - General Family Medicine 08/05/22 Alma Mcdaniel MD [address] [facility] [place] [address] PCP - Medical [place] [employer] 06/27/18 10/16/24 Ayse Carmona NP [address] [facility] [place] [address] Nurse Practitioner Family Medicine 08/05/22 08/22/24 Alexandria Disla, [place] [address] [facility] [place] [address] Registered Nurse Family Medicine 10/15/23 Sheldon Durham DO [address] [place] [address] Otolaryngology 03/03/24 Zoraida Rodriguez NP [address] [place] [address] Nurse Practitioner Family Medicine 08/23/24 documented as of this encounter
--- OUTSIDE RECORDS SUMMARY | 2024-10-25 09:37 | XMS_ITS | Encounter Summary ---
Author Organization [facility] Address [address] [place] [address] Care Team Providers Care Cath Lab Radiological Technologist Name Role Phone Alma Mcdaniel MD Primary Care Provider [phone] Ayse Carmona WASHING TUB OPERATOR Unavailable [phone] Alma Mcdaniel MD Unavailable Alexandria Disla RN Unavailable [phone] Sheldon Durham DO Unavailable [phone] Zoraida Rodriguez WASHING TUB OPERATOR Unavailable [phone] Encounter Details Date Type Department Care Team (Late Contact Info) Description 07/27/2014 [facility] [address] [place] [id number] Perla Caruso, [facility] [address] [place] [address] Social History Tobacco Use Types Packs/Day Years [...] Visit [facility] [address] [place] [address] Sheldon Durham DO [address] [place] [address] 11/20/2024 8:00 AM EDT [facility] [address] [facility] [place] [id number] Zoraida Rodriguez NP [address] [facility] [place] [address] documented as of this encounter Visit Diagnoses Not on filedocumented in this encounter Care Teams Cath Lab Radiological Technologist Relationship Specialty Start Date End Date Alma Mcdaniel MD [facility] [place] [address] PCP - General Family Medicine 08/05/22 Alma Mcdaniel MD [address] [facility] [place] [address] PCP - Medical [employer] 06/27/18 10/16/24 Ayse Carmona NP [facility] [place] [address] Nurse Practitioner Family Medicine 08/05/22 08/22/24 Alexandria Disla, RN [address] [facility] [place] [address] Registered Nurse Family Medicine 10/15/23 Sheldon Durham DO [address] [place] [address] Otolaryngology 03/03/24 Zoraida Rodriguez NP [facility] [place] [address] Nurse Practitioner Family Medicine 08/23/24 documented as of this encounter
--- OUTSIDE RECORDS SUMMARY | 2024-10-25 09:37 | XMS_ITS | Clinical Summary ---
Author Organization [facility] Address [address] [place] [address] Care Team Providers Care Bookkeeping Clerks Supervisor Name Role Phone Alma Mcdaniel MD Primary Care Provider [phone] Alexandria Disla RN Unavailable [phone] Sheldon Durham DO Unavailable [phone] Zoraida Rodriguez BARREL CLEANER Unavailable [phone] Allergies Active Allergy Reactions Criticality Noted Date Comments Acyclovir Unknown 04/30/2016 Horrible headaches, cannot hear Horrible headaches, cannot hear Tuberculin Tests Unknown 08/05/2022 Medications topiramate 50 MG tabletIndication s:Migraine aura occurring with and without headache Take 1 tablet by mouth in the morning and 1 tablet before bedtime. 180 tablet 024 Active lisinopril-hydro CHLOROthiazide 20-12.5 MG tabletIndication s:Essential hypertension TAKE 1 TABLET DAILY 90 tablet 11 024 Active albuterol HFA 90 mcg/act inhalerIndicatio ns:Chronic obstructive pulmonary disease, unspecified COPD type (HCC) USE 2 INHALATIONS EVERY 4 HOURS IF NEEDED FOR WHEEZING OR SHORTNESS OF BREATH 17 g 4 024 Active atorvastatin (Lipitor) 20 MG tabletIndication s:Mixed hyperlipidemia TAKE 1 TABLET DAILY 90 tablet 3 024 Active ipratropium-albu terol (Duo-Neb) 0.5-2.5 mg/3 mL nebulizer solutionIndicati ons:COPD exacerbation (HCC) USE 3 ML VIA NEBULIZER EVERY 6 HOURS 180 mL 11 024 Active bumetanide (Bumex) 1 MG tabletIndication s:Lower leg edema Take 1 tablet (1 mg) by mouth Daily 30 tablet 11 024 Active cholecalciferol (Vitamin D-3) 50 MCG (2000 UT) capsuleIndicatio ns:Vitamin D deficiency Take 1 capsule (50 mcg) by mouth Daily 90 capsule 3 025 2025 Active meclizine (Antivert) 25 MG tabletIndication s:Vertigo Take 1 tablet (25 mg) by mouth 3 (three) times a day as needed for dizziness 30 tablet 1 025 2025 Active levothyroxine (Synthroid, Levoxyl) 75 MCG tabletIndication s:Acquired hypothyroidism TAKE 1 TABLET BY MOUTH EVERY MORNING BEFORE FIRST MEAL OF THE DAY 30 tablet 11 025 Active pantoprazole (ProtoNix) 40 MG EC tabletIndication s:Gastroesophage al reflux disease without esophagitis Take 1 tablet (40 mg) by mouth in the morning. Take before meals. 90 tablet 1 025 Active ARIPiprazole (Abilify) 5 MG tabletIndication s:Bipolar disorder, current episode depressed, moderate (HCC) Take 1 tablet (5 mg) by mouth Daily 30 tablet 3 025 Active tiZANidine (Zanaflex) 4 MG tablet Take 4 mg by mouth 2 (two) times a day as needed for muscle spasms 025 Active folic acid (Folvite) 1 MG tablet Take 1 mg by mouth Daily 025 Active methotrexate 2.5 MG tablet Take 15 mg by mouth 1 (one) time per week. 025 Active nicotine (Nicoderm CQ) 21 MG/24HR patchIndications :Tobacco abuse Place 1 patch over 24 hours on the skin 1 (one) time each day at the same time 30 patch 025 Active Additional Information Patient not taking.Reported on 09/11/2024 traZODone (Desyrel) 50 MG tabletIndication s:Primary insomnia Take 1 tablet (50 mg) by mouth at bedtime 90 tablet 11 07/01/2 025 2027 Active meloxicam (Mobic) 15 MG tabletIndication s:Pigmented skin lesion of uncertain behavior of lower extremity,Cellul itis of right toe TAKE 1 TABLET(15 MG) BY MOUTH DAILY FOR 21 DAYS 21 tablet 025 Active valACYclovir (Valtrex) 500 MG tablet Three times daily Active PARoxetine (Paxil) 20 MG tablet Every morning 025 Active levoFLOXacin (Levaquin) 500 MG tabletIndication s:Otorrhea of left ear Take 1 tablet (500 mg) by mouth Daily for 14 days 14 tablet 025 2024 Active cephalexin (Keflex) 500 MG capsule Active Tirzepatide 10 MG/0.5ML solution auto-injectorInd ications:Type 2 diabetes mellitus with other specified complication, without long-term current use of insulin (HCC) Inject 10 mcg under the skin every 7 (seven) days 3 mL 1 Active HYDROcodone-acet aminophen (Montague) 5-325 MG tablet Take 1 tablet by mouth Daily as needed 024 2024 Discontinued pregabalin (Lyrica) 150 MG capsule Take 150 mg by mouth in the morning and 150 mg before bedtime. 025 2024 Discontinued(M ed list cleanup) Tirzepatide 10 MG/0.5ML solution auto-injectorInd ications:Type 2 diabetes mellitus with other specified complication, without long-term current use of insulin ([facility]) Inject 10 mcg under the skin every 7 (seven) days 3 mL 1 025 2024 Discontinued(R eorder) amoxicillin-clav ulanate (Augmentin) 875-125 MG tablet Take 875 mg by mouth in the morning and 875 mg before bedtime. 025 2024 Discontinued buprenorphine (Butrans) 7.5 MCG/HR Place 1 patch on the skin 1 (one) time per week 025 2024 Discontinued cefadroxil (Duricef) 500 MG capsule Twice daily 025 2024 Discontinued dexAMETHasone (Decadron) 0.1 % ophthalmic solution Four times daily 025 2024 Discontinued ofloxacin (Floxin) 0.3 % otic solutionIndicati ons:Otalgia of both ears Administer 4 drops into affected ear(s) in the morning and 4 drops before bedtime. Do all this for 10 days. 5 mL 025 2024 Discontinued(R eorder) levoFLOXacin (Levaquin) 500 MG tabletIndication s:Otorrhea of left ear Take 1 tablet (500 mg) by mouth Daily for 10 days 10 tablet 1 025 2024 Discontinued ofloxacin (Floxin) 0.3 % otic solutionIndicati ons:Otalgia of both ears Administer 4 drops into affected ear(s) in the morning and 4 drops before bedtime. Do all this for 10 days. 5 mL 025 2024 HYDROcodone-acet aminophen (Montague) 5-325 MG tabletIndication s:Other chronic pain,Chronic bilateral low back pain with bilateral sciatica Take 1 tablet by mouth every 6 (six) hours if needed for severe pain for up to 2 days 8 tablet 025 2024 fluconazole (Diflucan) 150 MG tabletIndication s:Candidiasis Take 1 tablet (150 mg) by mouth See administration instructions for 1 day Take one tab now. Repeat in 7 days if symptoms persist. 2 tablet 025 2024 Active Problems Problem Noted Date Diagnosed Date Acute hypokalemia 10/16/2024 Arthritis of both hands 10/16/2024 Bilateral hand pain 10/16/2024 Community acquired pneumonia 10/16/2024 Conjunctivitis 10/16/2024 Elevated lactic acid level 10/16/2024 Erythrocytosis 10/16/2024 Hypoxia 10/16/2024 Impaired mobility and activities of daily living 10/16/2024 Left shoulder pain 10/16/2024 Demand ischemia of myocardium 10/16/2024 Non-ST elevation SD (NSTEMI) 10/16/2024 Postoperative pain 10/16/2024 Severe sepsis 10/16/2024 Zoster conjunctivitis 10/16/2024 Type 2 diabetes mellitus, wi thout long-term current use of insulin 06/23/2024 Assessment & Plan (10/16/2024 1:45 PM EDT): Orders: Tirzepatide 10 MG/0.5ML solution auto-injector; Inject 10 mcg under the skin every 7 (seven) days Diabetic protocols reviewed. Discussed and updated current management plan. Addressed barriers to care, diet, exercise plan and blood sugar testing. Education provided for mediations. Discussed complications which could include blindness, heart disease and kidney disease. Goal of A1C less then 7 and Blood pressure less then 130/80. Cervical adenopathy 06/23/2024 Chronic bilateral low back pain with bilateral s ciatica 04/28/2024 Assessment & Plan (10/16/2024 1:45 PM EDT): Orders: Ambulatory referral to Pain Medicine; Future HYDROcodone-acetaminophen (Montague) 5-325 MG tablet; Take 1 tablet by mouth every 6 (six) hours if needed for severe pain for up to 2 days Fibromyalgia 04/28/2024 Assessment & Plan (10/16/2024 1:45 PM EDT): Orders: Ambulatory referral to Pain Medicine; Future Primary osteoarthritis of left knee 11/04/2023 Acute pain of left knee 11/04/2023 Lumbar radiculopathy 11/04/2023 Arthropathy of lumbosacral facet joint Primary osteoarthritis of hips, bilateral 2023 Sacroiliitis 08/26/2023 Thoracic spondylosis 08/26/2023 Osteophyte of vertebrae 09/14/2022 Temporary low platelet count 09/14/2022 Vitamin D deficiency 09/14/2022 Standard chest x-ray abnormal 12/02/2020 Other chronic pain 03/21/2020 Assessment & Plan (10/16/2024 1:45 PM EDT): Orders: Ambulatory referral to Pain Medicine; Future HYDROcodone-acetaminophen (Montague) 5-325 MG tablet; Take 1 tablet by mouth every 6 (six) hours if needed for severe pain for up to 2 days Tobacco abuse 03/08/2020 Anxiety 01/08/2020 Conductive hearing loss, uni lateral, right ear, with unrestricted hearing on the contralateral side 05/31/2019 Degeneration of lumbar intervertebral disc 03/28 Osteophyte 03/28/2019 Bipolar disorder, current episode depressed, mod erate 12/15/2018 Adenomatous polyp of colon 12/13/2018 Hyperplastic colonic polyp 12/13/2018 Positive colorectal cancer screening using Colog uard test 11/17/2018 Sensorineural hearing loss, bilateral 09/27/2018 Chronic tubotympanic suppurative otitis media Myringotomy tube(s) status 09/13/2018 Otorrhea of right ear 09/13/2018 Bilateral tinnitus 09/12/2018 Mixed conductive and sensorineural hearing loss, bilateral 09/12/2018 Mixed insomnia 08/25/2018 Restless legs 08/25/2018 Migraine without aura 01/29/2017 Deviated septum 09/21/2016 Gastroesophageal reflux disease 09/16/2016 Morbid (severe) obesity due to excess calories 0 09/16/2016 Hearing loss 09/16/2016 Perforation of right tympanic membrane 7 Postherpetic neuralgia 07/20/2016 Chronic sinusitis 07/06/2016 History of hysterectomy 03/26/2016 Tobacco dependence syndrome 03/26/2016 Acquired hypothyroidism 03/09/2016 History of eustachian tube dysfunction 7 Allergic rhinitis 05/10/2015 Essential hypertension 05/10/2015 Assessment & Plan (10/16/2024 1:45 PM EDT): Continue to check blood pressures at home while staying off of lisinopril-hydrochlorothiazide. If blood pressures continue to stay in normal range, will stay of of medication. If blood pressures increase, will restart medication. Mixed hyperlipidemia 05/10/2015 Generalized anxiety disorder 05/10/2015 Resolved Problems Problem Noted Date Diagnosed Date Resolved Date Body mass index (BMI) 45.0-49.9, adult 08/28/2024 08/28/2024 Inflammatory polyarthropathy 08/28/2024 08/28/2024 High risk medication use 12/02/2023 Major depressive disorder, r ecurrent episode, moderate 03/19/2023 04/21/2023 Alcohol use disorder, modera te, in sustained remission 09/14/2022 02/08/2023 Chronic obstructive pulmonary disease 12/19/2020 06/23/2024 Obstructive sleep apnea 11/26/2020 04/2 06/2024 Adjustment disorder 03/08/2020 11/04/19 Nondependent alcohol abuse, in remission 03/08/2020 11/04/2023 Diverticulosis large intesti ne w/o perforation or abscess w/o bleeding 12/13/2018 09/0 06/2023 Constipation 11/17/2018 02/08/2023 Carpal tunnel syndrome 04/24/201611/03 Backache 03/26/2016 12/01/2022 Hand joint pain 03/26/2016 12/01/2022 Encounters Date Type Department Care Team Description 10/22/2024 Abstract [facility] [address] [facility] [place] [address] Alma Mcdaniel MD 10/20/2024 Orders Only [address] [place] [address] Zoraida Rodriguez NP Candidiasis (Primary Dx) 10/19/2024 Abstract [place] [address] [place] [address] Alma Mcdaniel MD 10/17/2024 Patient Outreach [address] [place] [address] Alexandria Disla RN 10/16/2024 8:00 AM EDT Office Visit [place] [address] [facility] [place] [address] Zoraida Rodriguez NP Hospital discharge follow-up (Primary Dx); Migraine aura occurring with and without headache ; Fibromyalgia; Other chronic pain; Chronic bilateral low back pain with bilateral sciatica; Type 2 diabetes mellitus with other specified complication, without long-term current use of insulin (HCC); Essential hypertension 10/16/2024 Bamboo flowsheet [facility] [address] [facility] [place] [address] Zoraida Rodriguez NP 10/16/2024 Travel 10/13/2024 10:15 AM EDT Office Visit [facility] [address] [place] [address] Sheldon Durham, Parotid mass (Primary Dx); Otorrhea of left ear; Acute suppurative otitis media of left ear without spontaneous rupture of tympanic membrane, recurrence not specified 10/13/2024 Bamboo flowsheet [facility] [address] [place] [address] Sheldon Durham, 10/13/2024 Travel 10/12/2024 Telephone [facility] [address] [place] [address] Sheldno Durham, 10/10/2024 Patient Outreach [facility] [address] [place] [address] Alexandria Disla RN 09/22/2024 10:15 AM EDT Office Visit [facility] [address] [place] [address] Sheldon Durham, Neck mass (Primary Dx); Parotid mass; Tobacco abuse 09/22/2024 Bamboo flowsheet [facility] [address] [place] [address] Sheldon Durham, 09/22/2024 Travel 09/20/2024 1:00 PM EDT Procedure Visit [facility] Sheldon Durham, Benign tumor of parotid gland (Primary Dx) 09/15/2024 Refill [facility] [address] [place] [phone] Nadia Sun, DPM Pigmented skin lesion of uncertain behavior of lower extremity; Cellulitis of right toe 09/14/2024 Patient Outreach [facility] [address] [place] [phone] Alexandria Disla, [place] 09/12/2024 4:15 PM EDT Office Visit [facility] [address] [place] [address] Nadia Sun, DPM Pain of right great toe (Primary Dx); Hemangioma of skin 09/12/2024 Travel 09/12/2024 External Result Encounter [facility] External Department Unsolicited Sheldon Durham, DO 09/12/2024 External Result Encounter [facility] External Department Unsolicited Sheldon Durham, DO 09/12/2024 External Result Encounter [facility] External Department Unsolicited Sheldon Durham, DO 09/11/2024 11:30 AM EDT [facility] [address] [place] [address] Zoraida Rodriguez, VERENA Epidermal cyst (Primary Dx) 09/11/2024 9:30 AM EDT [facility] [address] [place] [address] Sheldon Durham, DO Neck mass (Primary Dx); Parotid mass; Tobacco abuse 09/11/2024 Bamboo flowsheet [facility] [address] [place] [address] Sheldon Durham, 09/11/2024 Travel 09/05/2024 Telephone [facility] [address] [place] [phone] Nadia Sun, DPM Advice Only (Post biopsy question) 08/31/2024 Telephone [facility] [address] [place] [address] Batool Cannon MA 08/29/2024 Telephone [facility] [address] [place] [address] Nadia Sun DPM Advice Only (toe) 08/28/2024 1:00 PM EDT [facility]illary Procedure [facility] [address] [place] [address] Cervical adenopathy 08/28/2024 9:15 AM EDT Office Visit [facility] [address] [place] [phone] Sheldon Durham DO Neck mass (Primary Dx); Cervical adenopathy; Blood tests prior to treatment or procedure 08/28/2024 Refill [facility] [address] [place] [phone] Alam Mcdaniel MD Primary insomnia 08/28/2024 Refill [facility] [address] [place] [address] Alma Mcdaniel MD Type 2 diabetes mellitus with other specified complication, without long-term current use of insulin (HCC) 08/28/2024 Bamboo flowsheet [facility] [address] [place] [address] Sheldon Durham DO 08/28/2024 Travel 08/24/2024 1:15 PM EDT Office Visit [facility] [address] [place] [address] Nadia Sun, DPM Plantar warts (Primary Dx); Pigmented skin lesion of uncertain behavior of lower extremity; Pain of right great toe; Open wound of right foot excluding one or more toes, initial encounter 08/24/2024 Bamboo flowsheet [facility] [address] [place] [address] Nadia Sun DPM 08/24/2024 Travel 08/23/2024 Patient Outreach [facility] [place] [place] [address] [place] [address] Alexandria Disla RN 08/23/2024 Travel 08/16/2024 Patient Outreach [facility] [place] [address] Alexandria Disla RN 08/15/2024 8:30 AM EDT Office [place] [address] [facility] [address] Zoraida Rodriguez NP Open wound of right foot excluding one or more toes, initial encounter (Primary Dx); Dysuria; Chronic maxillary sinusitis; Allergic rhinitis, unspecified seasonality, unspecified trigger 08/15/2024 Bamboo flowsheet [place] [address] [place] [address] Zoraida Rodriguez NP 08/15/2024 Travel 08/14/2024 Travel 08/02/2024 Results Follow-Up [place] [address] [facility] [place] [address] Zoriada Rodriguez NP POCT Urinalysis dipstick, Urine culture (clean catch), Urinalysis with reflex microscopic (clean catch), NOTE 08/02/2024 Results Follow-Up [place] [address] [facility] [place] [phone] Zoraida Rodriguez NP SURESWAB(R) ADVANCED VAGINITIS PLUS, TMA 08/02/[address] [place] [phone] Reena Chew MA 08/01/2024 1:00 PM EDT Office Visit [place] [address] [facility] [place] [address] Zoraida Rodriguez NP Vaginal itching (Primary Dx); Dysuria 08/01/2024 External Result Encounter [facility] External Department Unsolicited Zoraida Rodriguez NP 08/01/2024 Bamboo flowsheet [place] [address] [facility] [place] [address] Zoraida Rodriguez NP 08/01/2024 Travel 07/31/2024 Orders Only [facility] [address] [facility] [place] [address] Alma Mcdaniel MD Type 2 diabetes mellitus with other specified complication, without long-term current use of insulin (HCC) (Primary Dx) 07/31/2024 Refill [facility] [address] [place] [address] Alma Mcdaniel MD Type 2 diabetes mellitus with other specified complication, without long-term current use of insulin (HCC) 07/31/2024 Patient Outreach [facility] [place] [address] [place] [address] Alexandria Disla RN from Last 3 Months Immunizations Immunization Administration Dates Next Due Influenza, injectable, MDCK, preservative free, quadrivalent 12/08/2022,12/13/2021 Influenza, injectable, quadr ivalent, preservative free 11/26/2020,01/29/2019,12/18/2014 Influenza, seasonal, injectable 11/29/2014 Influenza, seasonal, injecta ble, preservative free 12/02/2023 SARS-COV-2 (COVID-19) vaccin e, mRNA, spike protein, LNP, PF, mariam-sucrose, 30 mcg/0.3 mL 12/02/2023 Tdap 03/01/2006 Zoster, live 09/27/2016 Family History Medical History Relation Name Comments Stroke Father Felton Harman Heart disease Mother Cely Harman Heart failure Mother Cely Harman Stroke Mother Cely Harman Cancer Mother's Sister Renetta Pelaez Relation Name Status Comments Father Felton Harman Mother Cely Harman Mother's Sister Renetta Pelaez Social History Tobacco Use Types Packs/Day Years [...] How often do you attend chur or tenriism services? More than 4 times per year 10/15/2023 Do you belong to any clubs o r organizations such as islam groups, unions, fraternal or athletic groups, or [...] Score 0 08/05/2022 [facility] Occupational Stress Questionnaire Answer Date [...] any time in the past 12 [facility], were you homeless or living in [...] Pulse 98 10/16/2024 8:05 AM EDT Temperature 36.8 C (98.2 F) 09/11/2024 11:24 AM EDT Respiratory Rate 18 07/17/2024 4:51 PM EDT Oxygen Saturation 96% 10/16/2024 8:05 AM EDT Inhaled Oxygen Concentration - - Weight 105 kg (231 lb) 10/16/2024 8:05 AM EDT Height 157.5 cm (5' 2 ) 10/16/2024 8:05 AM EDT Body Mass Index 42.25 10/16/2024 8:05 AM EDT Plan of Treatment Upcoming Encounters Date Type Department Care Team (Late st Contact Info) Description 10/26/2024 10:45 AM EDT Office Visit [facility] [address] [place] [address] Sheldon Durham DO [address] [place] [address] 11/20/2024 8:00 AM EDT Office Visit [facility] [address] [place] [phone] Zoraida Rodriguez NP [address] [place], [place] [phone] Health Maintenance Due Date Last Done Comments CT Colonography 1961 FIT 1961 FOBT 1961 Lung Cancer Screening Shared Decision Making 1961 Sigmoidoscopy 1961 FIT-DNA 09/27/2021 09/27/2018 Diabetes: Hemoglobin A1C 09/22/2024 04/ 025, 03/31/2024, 12/02/2023, Additional history exists Influenza Vaccine (#1) 2024 4, 12/08/2022, 12/13/2021, Additional history exists Mammogram 12/16/2024 12/17/2023, 09/29, 01/29/2020, Additional history exists Diabetes: Retinopathy Screening 01/08/2025 3 Diabetes: Urine Protein Screening 06/23/2025 025, 02/27/2020 Colonoscopy 07/20/2032 07/20/2022, 11/25/2018 Colorectal Cancer Screening 07/20/2032 Goals Goal Patient Goal Type Associated Problems Recent Progress Patient-Stated? Author Help patient manage antidepressant medication Care Plan Patient on antidepressant monitoring plan No Alma Mcdaniel MD Baseline PHQ-9 Care Plan Baseline PHQ-9 No Alma Mcdaniel MD Procedures Procedure Name Priority Date/Time Associated Diagnosis Comments BASIC METABOLIC PANEL Routine 09/12/2024 11:41 AM EDT CBC WITH AUTO DIFFERENTIAL Routine 09/12/2024 11:41 AM EDT ECG 12-LEAD 09/12/2024 11:[address] SOFT TISSUE NECK W IV CONTRAST STAT 08/28/2024 1:25 PM EDT Cervical adenopathy POCT URINALYSIS DIPSTICK Routine 08/15/2024 8:40 AM EDT Dysuria SURESWAB(R) ADVANCED VAGINITIS PLUS, TMA Routine 08/01/2024 2:56 PM EDT NOTE Routine 08/01/2024 2:05 PM EDT URINALYSIS REFLEX Routine 08/01/2024 2:0 5 PM EDT Dysuria Vaginal itching CULTURE, URINE, ROUTINE Routine 08/01/2024 2:05 PM EDT Dysuria Vaginal itching POCT URINALYSIS DIPSTICK Routine 08/01/2024 1:21 PM EDT Dysuria Vaginal itching MICROALBUMIN / CREATININE URINE RATIO Routine 06/23/2024 10:11 AM EDT Type 2 diabetes mellitus with other specified complication, without long-term current use of insulin (HCC) HEMOGLOBIN A1C Routine 06/23/2024 8:39 AM EDT Type 2 diabetes mellitus with other specified complication, without long-term current use of insulin (HCC) BI MAMMOGRAM SCREENING TOMOSYNTHESIS BILATERAL Routine 12/17/2023 11:28 AM EDT Encounter for screening mammogram for malignant neoplasm of breast DIABETIC RETINOPATHY SCREENING - OU - BOTH EYES Routine 01/08/2023 2:05 PM EST COLONOSCOPY Routine 11/25/2018 12:00 PM EDT LAB COLOGUARD COLON CANCER SCREEN Routine 09/27/2018 from Last 3 Months or Most Recently Relevant to Health Maintenance Results * (ABNORMAL) CBC auto differential (09/12/2024 11:41 AM EDT) WBC 5.6 3.8 - 11.6 [CFU]/mL 09/12/2024 12:10 PM EDT [facility] UNCORRECTED WHITE BLOOD COUNT 5.6 3.8 - 11.6 10*3/uL 09/12/2024 12:10 PM EDT [facility] RBC 4.47 3.60 - 5.00 10*6/uL 09/12/2024 12:10 PM EDT [facility] HEMOGLOBIN 15.3 11.8 - 15.4 g/dL 09/12/2024 12:10 PM EDT [facility] HEMATOCRIT 44.8 34.0 - 46.4 % 09/12/2024 12:10 PM EDT [facility] MCV 100.2(H) 80 - 100 fL 09/12/2024 12:10 PM EDT [facility] MCH 34.1 24.7 - 34.3 pg 09/12/2024 12:10 PM EDT [facility] MCHC 34.1 32.0 - 35.0 g/dL 09/12/2024 12:10 PM EDT [facility] RED CELL DISTRIBUTION WIDTH, RDW 15.4(H) 11.9 - 15.3 % 09/12/2024 12:10 PM EDT [facility] PLATELET COUNT 98(L) 150 - 450 10*3/uL 09/12/2024 12:10 PM EDT [facility] MEAN PLATELET VOLUME, MPV 9.2 6.3 - 10.7 fL 09/12/2024 12:10 PM EDT [facility] NEUTROPHILS, % 57.0 . % 09/12/2024 12:10 PM EDT [facility] LYMPHOCYTES, % 33.6 . % 09/12/2024 12:10 PM EDT [facility] MONOCYTE/MACROPHA GE, % 7.4 . % 09/12/2024 12:10 PM EDT [facility] EOSINOPHILS, % 1.5 . % 09/12/2024 12:10 PM EDT [facility] BASOPHILS, % 0.5 . % 09/12/2024 12:10 PM EDT [facility] NRBC 0.1 0 - 0.5 /100{WBC} 09/12/2024 12:10 PM EDT [facility] NEUTROPHILS 3.2 1.8 - 7.7 10*3/uL 09/12/2024 12:10 PM EDT [facility] LYMPHOCYTES 1.9 1.00 - 4.8 10*3/uL 09/12/2024 12:10 PM EDT [facility] MONOCYTES 0.4 0.0 - 0.8 10*3/uL 09/12/2024 12:10 PM EDT [facility] EOSINOPHILS 0.1 0.0 - 0.45 10*3/uL 09/12/2024 12:10 PM EDT [facility] BASOPHILS 0.0 0.0 - 0.2 10*3/uL 09/12/2024 12:10 PM EDT [facility] Blood (Blood) 09/12/2024 11: 41 AM EDT 09/12/2024 11:59 AM EDT Sheldon Durham DO LAB BLOOD ORDERABLES Final Result [facility] [place] [address] [place] [address], [facility] [address] [place] [address] * (ABNORMAL) Basic metabolic panel (09/12/2024 11:41 AM EDT) Glucose 87 70 - 100 mg/dL 09/12/2024 12:55 PM EDT [facility] Comment: Random Glucose Reference Range is dependent on time and content of last meal. Glucose of more than 200 mg/dL in a nonstressed, ambulatory subject supports the diagnosis of Diabetes Mellitus. ADA recommended reference range BUN 6(L) 7 - 25 mg/dL 09/12/2024 12:55 PM EDT [facility] CREATININE 0.57(L) 0.60 - 1.20 mg/dL 09/12/2024 12:55 PM EDT [facility] ESTIMATED GFR >60.0 09/12/2024 12:55 PM EDT [facility] Sodium 141 136 - 145 mmol/L 09/12/2024 12:55 PM EDT [facility] Potassium, Bld 4.0 3.5 - 5.1 mmol/L 09/12/2024 12:55 PM EDT [facility] Chloride 108(H) 98 - 107 mmol/L 09/12/2024 12:55 PM EDT [facility] Carbon Dioxide 28.4 21.0 - 31.0 mmol/L 09/12/2024 12:55 PM EDT [facility] Anion Gap 8.6 6.0 - 15.0 09/12/2024 12:55 PM EDT [facility] Calcium 9.2 8.6 - 10.3 mg/dL 09/12/2024 12:55 PM EDT [facility] Other Topography unknown / Unknown 09/12/2024 11:41 AM EDT 09/12/2024 11:59 AM EDT Sheldon Durham DO LAB BLOOD ORDERABLES Final Result [address] [address], [address] [address] * ECG 12 lead (09/12/2024 11:21 AM EDT) 09/12/2024 11:2 1 AM EDT Narrative [facility] [place] - 09/12/2024 2:03 PM EDT [facility] Main [address] [address] Electrocardiograph Report Signed Patient: Kaylynn Talamantes MR#: [id number] : 1960 Acct:[id number] Age/Sex: 64 / F ADM Date: 09/12/24 Loc: PS Room: Type: REG CLI Attending Dr: Sheldon Durham DO Ordering Provider: [...] change was found Confirmed by Joel Barlow ([id number]) on 09/12/2024 2:02:51 PM Referred By: Electronically Signed By: Joel Barlow Transcribed By: MUS Signed By Joel Barlow MD 09/12/24 1402 Procedure Note Mary Barlow MD - 09/12/2024 [facility] Main [address] [address] Electrocardiograph Report Signed Patient: Kaylynn Talamantes DMR#: [id number] : 1960cct:[id number] Age/Sex: 64 / FADM Date: 09/12/24 Loc: PS Room:Type: REG CLI Attending Dr: Sheldon Durham DO Ordering Provider: [...] change was found Confirmed by Joel Barlow ([id number]) on 09/12/2024 2:02:51 PM Referred By: Electronically Signed By: Joel Barlow Transcribed By: MUS Signed By Joel Barlow MD 09/12/24 1401 us Sheldon Durham DO ECG ORDERABLES Final Resul t [address] [address], * CT soft tissue neck w IV contrast (08/28/2024 1:25 PM EDT) Anatomical Region Laterality Modality Head, Neck Computed Tomogra phy 08/28/2024 2:41 PM EDT Impressions 08/28/2024 2:48 PM EDT Nonspecific 2 x 1.5 x 2 cm structure within the superficial lobe of the left parotid gland may represent enlarged lymph node however benign and malignant parotid gland lesions are not excluded. ELECTRONICALLY SIGNED BY: Atilio Wadsworth DO Narrative 08/28/2024 2:48 PM EDT EXAM: CT SOFT TISSUE NECK W IV CONTRAST History: Lump on the left side of the neck. Technique: Multiple contiguous axial images were obtained of the soft tissues of the neck with contrast. Multiplanar reformats were obtained. All CT scans at this facility use dose modulation, iterative reconstruction, and/or weight based dosing when appropriate to reduce radiation dose to as low as reasonably achievable. Comparison: None available Findings: Within the superficial lobe of the left parotid gland deep to a marker placed on the skin there is a 2 x 1.5 x 2 cm structure that is only slightly increased in density when compared to the adjacent parotid gland parenchyma. This lesion is nonspecific. A 1.5 x 1.2 x 1.5 cm structure within the superficial lobe of the right parotid gland is increased in density when compared to the adjacent parotid gland parenchyma and has the appearance of a mildly enlarged lymph node. The thyroid gland is within normal limits. The oral cavity, tongue, and tongue base appear within normal limits. Submandibular glands appear unremarkable. Nasopharynx and nasal cavity appear unremarkable. The bilateral automation qa analyst, parapharyngeal, carotid and retropharyngeal spaces appear unremarkable. Perivertebral spaces appear unremarkable. No cervical chain lymphadenopathy is seen. Epiglottis is within normal limits. Vallecula and piriform sinuses appear unremarkable. Larynx appears unremarkable. Visualized portion of the globes and orbits appear unremarkable. The upper mediastinum appears grossly unremarkable and the lung apices are clear. No supraclavicular lymphadenopathy. Visualized paranasal sinuses are clear. Mastoid air cells and middle ear cavities are clear. A partially visualized simple fluid density structure within the posterior subcutaneous soft tissues just right of midline is nonspecific but most likely an epidermal inclusion cyst. Procedure Note Atilio Wadsworth, DO - 08/28/2024 EXAM: CT SOFT TISSUE NECK W IV CONTRAST History: Lump on the left side of the neck. Technique: Multiple contiguous axial images were obtained of the softtissues of the neck with contrast. Multiplanar reformats were obtained. All CT scans at this facility use dose modulation, iterativereconstruction, and/or weight based dosing when appropriate to reduceradiation dose to as low as reasonably achievable. Comparison: None available Findings: Within the superficial lobe of the left parotid gland deep to a markerplaced on the skin there is a 2 x 1.5 x 2 cm structure that is onlyslightly increased in density when compared to the adjacent parotid glandparenchyma. This lesion is nonspecific. A 1.5 x 1.2 x 1.5 cm structurewithin the superficial lobe of the right parotid gland is increased indensity when compared to the adjacent parotid gland parenchyma and has theappearance of a mildly enlarged lymph node. The thyroid gland is within normal limits. The oral cavity, tongue, and tongue base appear within normal limits.Submandibular glands appear unremarkable. Nasopharynx and nasal cavity appear unremarkable. The bilateral automation qa analyst, parapharyngeal, carotid and retropharyngealspaces appear unremarkable. Perivertebral spaces appear unremarkable. No cervical chainlymphadenopathy is seen. Epiglottis is within normal limits. Vallecula and piriform sinuses appearunremarkable. Larynx appears unremarkable. Visualized portion of the globes and orbits appear unremarkable. The uppermediastinum appears grossly unremarkable and the lung apices are clear. Nosupraclavicular lymphadenopathy. Visualized paranasal sinuses are clear.Mastoid air cells and middle ear cavities are clear. A partiallyvisualized simple fluid density structure within the posteriorsubcutaneous soft tissues just right of midline is nonspecific but mostlikely an epidermal inclusion cyst. IMPRESSION: Nonspecific 2 x 1.5 x 2 cm structure within the superficial lobe of theleft parotid gland may represent enlarged lymph node however benign andmalignant parotid gland lesions are not excluded. ELECTRONICALLY SIGNED BY: Atilio Wadsworth DO Sheldon Durham DO IMG CT PROCEDURES Final Res ult * POCT Urinalysis dipstick (08/15/2024 8:40 AM EDT) Only the most recent of2 resultswithin the time period is included. Color, UA Dark Divine Clarity, UA Cloudy Glucose, UA Negative Negative - 2000(110) ++++ mg/dL Bilirubin, UA Negative Negative - 4(70) +++ mg/dL Ketones, UA Negative Negative - 160(16) ++++ mg/dL Spec Grav, UA 1.010 1 - 1.03 Blood, UA None Detected Negative - 50 Isreal/mcL pH, UA 8.0 5 - 9 Protein, UA Positive Negative - 2000(20) ++++ mg/dL Urobilinogen, UA 0.2 0.2 - 12 mg/dL Leukocytes, UA Negative Negative - 500+++ Cheyanne/mcL Nitrite, UA Negative Negative - Positive Urine 08/15/2024 8:40 AM EDT Zoarida Rodriguez BARREL CLEANER POINT OF CARE TEST ENTER/EDIT O RDERABLES Final Result * SURESWAB(R) ADVANCED VAGINITIS PLUS, TMA (08/01/2024 2:56 PM EDT) SURESWAB(R) ADV BACTERIAL VAGINOSIS (BV), TMA NEGATIVE NEGATIVE [facility] PETRONA SPECIES NOT DETECTED NOT DETECTED [facility] PETRONA GLABRATA NOT DETECTED NOT DETECTED [facility] Comment: Petrona species C. albicans, C. tropicalis, C. parapsilosis, and/or C. dubliniensis can be detected, but not differentiated, in the Petrona spp. result. TRICHOMONAS VAGINALIS (TV) NOT DETECTED NOT DETECTED [facility] CHLAMYDIA TRACHOMATIS RNA, TMA, UROGENITAL NOT DETECTED NOT DETECTED [facility] NEISSERIA GONORRHOEAE RNA, TMA, UROGENITAL NOT DETECTED NOT DETECTED [facility] Comment: For additional information, please refer to https://education.[employer]/faq/XJN488 (This link is being provided for information/ educational purposes only.) 08/01/2024 2:56 PM EDT 08/01/2024 2:57 PM EDT Narrative [facility] - 08/02/2024 3:42 PM EDT AN UPDATE OR CORRECTION HAS BEEN MADE TO NAME Resulting Agency Comment Performing Organization Information Site ID: QPT Name: [facility] [employer] [facility] Address: [address] [place] [address], [address] [place] [phone] Director: Kush Ojeda MD Zoraida Rodriguez BARREL CLEANER LAB CYTOLOGY ORDERABLES Final R esult Performing Organization Address [facility] de Phone Number [facility] * NOTE (08/01/2024 2:05 PM EDT) Pathologist [facility] NOTE [facility] Comment: This urine was analyzed for the presence of WBC, RBC, bacteria, casts, and other formed elements. Only those elements seen were reported. 08/01/2024 2:05 PM EDT 08/01/2024 2:06 PM EDT Narrative Resulting Agency Comment Performing Organization Information Site ID: QPT Name: [employer] [facility] Address: [address] [place] [address], [address] [place] [phone] Director: Kush Ojeda MD [facility] Jennifer BARREL CLEANER [facility] Final Result Performing Organization Address [facility]/ZIP Co de Phone Number [facility] * (ABNORMAL) Urinalysis with reflex microscopic (clean catch) (08/01/2024 2:05 PM EDT) COLOR YELLOW YELLOW [facility] APPEARANCE CLEAR CLEAR [facility] SPECIFIC GRAVITY 1.008 1.001 - 1.035 [facility] PH 7.5 5.0 - 8.0 [facility] GLUCOSE NEGATIVE NEGATIVE [facility] BILIRUBIN NEGATIVE NEGATIVE [facility] KETONES NEGATIVE NEGATIVE [facility] OCCULT BLOOD NEGATIVE NEGATIVE [facility] PROTEIN NEGATIVE NEGATIVE [facility] NITRITE NEGATIVE NEGATIVE [facility] LEUKOCYTE ESTERASE 1+(A) NEGATIVE [facility] WBC 0-5 < OR = 5 /HPF [facility] RBC NONE SEEN < OR = 2 /HPF [facility] SQUAMOUS EPITHELIAL CELLS NONE SEEN < OR = 5 /HPF [facility] BACTERIA NONE SEEN NONE SEEN /HPF [facility] HYALINE CAST NONE SEEN NONE SEEN /LPF [facility] Urine Urine specimen obtained by clean catch procedure / Unknown 08/01/2024 2:05 PM EDT 08/01/2024 2:06 PM EDT Narrative Resulting Agency Comment Performing Organization Information Site ID: QPT Name: [employer] [facility] Address: [address] [place] [address], [address] [place] [phone] Director: Kush Ojeda MD Zoraida Majors BARREL CLEANER LAB URINE ORDERABLES Final Resu lt Performing Organization Address [facility] de Phone Number [facility] * Urine culture (clean catch) (08/01/2024 2:05 PM EDT) MICRO NUMBER [id number] [facility] SPECIMEN QUALITY Inadequate [facility] SOURCE: ([facility]) URINE [facility] STATUS FINAL [facility] RESULT TNP [facility] Comment: Test not performed. Submitted urine tube is incorrectly filled. Urine Urine specimen obtained by clean catch procedure / Unknown 08/01/2024 2:05 PM EDT 08/01/2024 2:06 PM EDT Narrative Resulting Agency Comment Performing Organization Information Site ID: QPT Name: [employer] [facility] Address: [address] [place] [address], [address] [place] [phone] Director: Kush Ojeda MD Zoraida Majors BARREL CLEANER LAB MICROBIOLOGY - GENERAL ORDE RABLES Final Result Performing Organization Address [facility] Co de Phone Number [facility] * Microalbumin / creatinine urine ratio (06/23/2024 10:11 AM EDT) CREATININE, RANDOM URINE 72 20 - 275 mg/dL [facility] ALBUMIN, URINE 0.2 See Note: mg/dL [facility] Comment: Reference Range: Reference Range Not established ALBUMIN/CREATININE RATIO, RANDOM URINE 3 <30 mg/g creat [facility] Comment: The ADA defines abnormalities in albumin excretion as follows: Albuminuria Category Result (mg/g creatinine) Normal to Mildly increased <30 Moderately increased 30-299 Severely increased > OR = 300 The ADA recommends that at least two of three specimens collected within a 3-6 month period be abnormal before considering a patient to be within a diagnostic category. Urine Urine specimen obtained by clean catch procedure / Unknown 06/23/2024 10:11 AM EDT 06/23/2024 3:59 PM EDT Narrative [facility] - 06/25/2024 1:01 PM EDT SPLIT 06/23/2024 FROM [id number] Resulting Agency Comment Performing Organization Information Site ID: QPT Name: [employer] [facility] Address: [address] [place] [address], [address] [place] [phone] Director: Kush Ojeda MD Alma Mcdaniel MD LAB URINE ORDERABLES Final Resul t [facility] * Hemoglobin A1c (06/23/2024 8:39 AM EDT) Hemoglobin A1C 5.6 <5.7 % [facility] Comment: For the purpose of screening for the presence of diabetes: <5.7% Consistent with the absence of diabetes 5.7-6.4% Consistent with increased risk for diabetes (prediabetes) > or =6.5% Consistent with diabetes This assay result is consistent with a decreased risk of diabetes. Currently, no consensus exists regarding use of hemoglobin A1c for diagnosis of diabetes in children. According to [place] Diabetes Association (ADA) guidelines, hemoglobin A1c <7.0% represents optimal control in non- diabetic patients. Different metrics may apply to specific patient populations. Standards of Medical Care in Diabetes(ADA). Blood Venous blood specimen / Unknown 06/23/2024 8:39 AM EDT 06/23/2024 8:40 AM EDT Narrative [facility] - 06/24/2024 4:58 AM EDT MULTIPLE COLLECTION TIMES FOR SAME TEST TYPE. Resulting Agency Comment Performing Organization Information Site ID: QPT Name: [facility] Address: [address] [place] [address] Director: Kush Ojeda MD Alma Mcdaniel MD LAB BLOOD ORDERABLES Final Resul t [facility] * Bilateral screening mammogram with tomosynthesis (12/17/2023 11:28 AM EDT) Anatomical Region Laterality Modality Breast Bilateral Mammography 12/17/2023 2:55 PM EDT Impressions 12/17/2023 3:05 PM EDT Impression: No specific evidence of malignancy seen in either breast. Breast Density: There are scattered areas of fibroglandular density BiRads: BIRADS 2 - Benign Recommended follow-up: Routine Screening Mamm ELECTRONICALLY SIGNED BY: Shantanu Santiago M.D. Narrative 12/17/2023 3:05 PM EDT Examination: BI MAMMOGRAM SCREENING TOMOSYNTHESIS BILATERAL Clinical History: screen Technique: Screening digital mammography study of both breasts was performed with 2-D and 3-D tomosynthesis imaging. Study was compared to the prior exam dated 10/10/2021. Findings: There is no evidence of interval dominant spiculated mass, grouped microcalcifications, or skin thickening which would be suggestive of malignancy. Mild scattered benign calcifications are noted bilaterally. A few small faint benign-appearing nodular densities noted bilaterally not felt to be acutely significant. Axillary lymph nodes are noted bilaterally. Procedure Note Shantanu Santiago MD - 12/17/2023 Examination: BI MAMMOGRAM SCREENING TOMOSYNTHESIS BILATERAL Clinical History: screen Technique: Screening digital mammography study of both breasts wasperformed with 2-D and 3-D tomosynthesis imaging. Study was compared tothe prior exam dated 10/10/2021. Findings: There is no evidence of interval dominant spiculated mass,grouped microcalcifications, or skin thickening which would be suggestiveof malignancy. Mild scattered benign calcifications are noted bilaterally. A few smallfaint benign-appearing nodular densities noted bilaterally not felt to beacutely significant. Axillary lymph nodes are noted bilaterally. IMPRESSION: Impression: No specific evidence of malignancy seen in either breast. Breast Density: There are scattered areas of fibroglandular density BiRads: BIRADS 2 - Benign Recommended follow-up: Routine Screening Mamm ELECTRONICALLY SIGNED BY: Shantanu Santiago M.D. Stephanie Pelayo BARREL CLEANER IMG BI PROCEDURES Final Result * Diabetic Retinopathy Screening - OU - Both Eyes (01/08/2023 2:05 PM EST) Anatomical Region Laterality Modality Head Other Alma Mcdaniel MD OPHTH PHOTOGRAPHY Final Result * Colonoscopy (11/25/2018 12:00 PM EDT) Anatomical Region Laterality Modality Endoscopy 11/25/2018 12:0 0 PM EDT Narrative 11/25/2018 12:00 PM EDT PERFORMED AT [facility] LOCATION:[id number] Procedure Note CONVERSION, GENERIC - 07/15/2022 PERFORMED AT [facility] LOCATION:[id number] Alma Mcdaniel MD ENDOSCOPY PROCEDURE ORDERABLES F inal Result * (ABNORMAL) Cologuard?? colon cancer screening (09/27/2018) COLOGUARD RESULT REPORTABLE Positive( A) Not Applicable [facility] Comment: It is recommended that a positive Cologuard screen be clinically correlated and followed-up with a structural examination of the colon such as diagnostic colonoscopy. Colonoscopies performed for a positive Cologuard may find as the most clinically significant lesion: colorectal cancer [4.0%], advanced adenoma (including sessile serrated polyps greater than or equal to 1cm diameter) [20%] or non- advanced adenoma [31%]; or no colorectal neoplasia [45%]. These estimates are derived from a prospective cross-sectional screening study of 10,000 individuals at average risk for colorectal cancer who were screened with both Cologuard and colonoscopy. (Table 3, Karol Wahl al, N Engl J Med 2014;370(14):8031-2528.) Test Type: Composite algorithmic analysis of stool DNA-biomarkers with hemoglobin immunoassay. Quantitative values of individual biomarkers are not reportable and are not associated with individual biomarker result reference ranges. Precautions and Limitations: Cologuard is intended for colorectal cancer screening of adults of either sex, 50 years or older, who are at typical average-risk for colorectal cancer. A negative Cologuard test result does not guarantee the absence of colorectal cancer or advanced adenoma (pre-cancer). Patients with a negative Cologuard test result should be advised to continue participating in a colorectal cancer screening program. Cologuard may produce a positive result, even though a colonoscopy may not find colorectal cancer or precancerous polyps. The performance of Cologuard has been established in a cross sectional study (i.e., single point in time). Performance has not been evaluated in adults who have been previously tested with Cologuard or in patients less than 50 years of age. Cologuard has been approved for use by the U.S. FDA. Cologuard performance data in a 10,000 patient pivotal study using colonoscopy as the reference method can be accessed at the following location: www.[employer]/results. Additional description of the Cologuard test process, warnings and precautions can be found at www.cologuardtest.com. Rx Only. 09/27/2018 Ayse Carmona NP LAB MOLECULAR DIAGNOSTICS ORDERABLES Final Result [facility] from Last 3 Months or Most Recently Relevant to Health Maintenance Additional Health Concerns Active Problems Noted Date Diagnosed Date Patient on antidepressant monitoring plan 2024 Baseline PHQ-9 07/04/2024 Insurance [employer] Care Teams Bookkeeping Clerks Supervisor Relationship Specialty Start Date End Date Alma Mcdaniel MD [address] [facility] [place], [place] [phone] PCP - General Family Medicine 08/05/22 Alexandria Disla, [place] [address] [place], [place] [phone] Registered Nurse Family Medicine 10/15/23 Sheldon Durham DO [address] [place] [address] Otolaryngology 03/03/24 Zoraida Rodriguez NP [address] [facility] [address] [place], [place] [id number] Nurse Practitioner Family Medicine 08/23/24
--- OUTSIDE RECORDS SUMMARY | 2024-10-25 09:37 | XMS_ITS | Encounter Summary ---
Author Organization [facility] Address [address] [place] [address] Care Team Providers Care Photo Engraver Name Role Phone Alma Mcdaniel MD Primary Care Provider [phone] Ayse Carmona VIRTUAL REALITY SPECIALIST Unavailable [phone] Alma Mcdaniel MD Unavailable Alexandria Disla RN Unavailable [phone] Sheldon Durham DO Unavailable [phone] Zoraida Rodriguez VIRTUAL REALITY SPECIALIST Unavailable [phone] Encounter Details Date Type Department Care Team (Late st Contact Info) Description 09/30/2022 Abstract [facility] [address] [facility] [place] [phone] Batool Cannon MA Social History Tobacco Use Types Packs/Day Years [...] How often do you attend chur or taoist services? 1 to 4 times per year [...] Recorded Patient Health Questionnaire-2 Score 0 08/05/2022 [facility] of Occupat ional Health - Occupational Stress [...] suspected to have Coronavirus/COVID-19? No / Unsure 09/14/2022 5:16 PM EDT documented as of this encounter Plan of Treatment Upcoming Encounters Date Type Department Care Team (Late st Contact Info) Description 10/26/2024 10:45 AM EDT Office [facility] [address] [place] [phone] Sheldon Durham DO [address] [place] [address] 11/20/2024 8:00 AM EDT Office Visit [facility] [address] [facility] [place] [phone] Zoraida Rodriguez NP [address] [facility] [place] [address] documented as of this encounter Visit Diagnoses Not on filedocumented in this encounter Care Teams Photo Engraver Relationship Specialty Start Date End Date Alma Mcdaniel MD [address] [facility] [place] [address] PCP - General Family Medicine 08/05/22 Alma Mcdaniel MD [address] [facility] [place] [address] PCP - Medical [employer] 06/27/18 10/16/24 Ayse Carmona NP [address] [facility] [place] [address] Nurse Practitioner Family Medicine 08/05/22 08/22/24 Alexandria Disla, RN [address] [facility] [place] [address] Registered Nurse Family Medicine 10/15/23 Sheldon Durham DO [address] [place] [address] Otolaryngology 03/03/24 Zoraida Rodriguez NP [address] [facility] [place] [address] Nurse Practitioner Family Medicine 08/23/24 documented as of this encounter
--- OUTSIDE RECORDS SUMMARY | 2024-10-25 09:37 | XMS_ITS | Encounter Summary ---
Author Organization [facility] Address [address] [place] [address] Care Team Providers Care Ware Cleaner Name Role Phone Alma Mcdaniel MD Primary Care Provider [phone] Ayse Carmona NP Unavailable [phone] Alma Mcdaniel MD Unavailable [place] Disla RN Unavailable [phone] Sheldon Durham DO Unavailable [phone] Zoraida Rodriguez NP Unavailable [phone] Encounter Details Date Type Department Care Team (Late st Contact Info) Description 09/14/2022 Abstract [facility] Family Medicine [address] [place] [address] Stephanie Pelayo NP Social History Tobacco Use Types Packs/Day Years Used Date Smoking Tobacco: Every Day Cigarettes Smokeless Tobacco: Never Tobacco Cessation:Ready to Q uit: Yes; Counseling Given: Not Answered Alcohol Use Standard Drinks/Week Comments Never 0 [...] How often do you attend chur or synagogue services? 1 to 4 times per year 08/05/2022 Do you belong to any clubs o r organizations such as roman catholic groups, unions, fraternal or athletic groups, [...] Recorded Patient Health Questionnaire-2 Score 0 08/05/2022 [facility] [place] of Occupat ional Health - Occupational Stress [...] in a retirement (including now)? No 08/05/2022 Comments Unknown Sex [...] Office Visit [facility] [address] [place] [address] Sheldon Durham, [address] [place] [address] 11/20/2024 8:00 AM EDT Office Visit [facility] [address] [facility] [place] [address] Zoraida Rodriguez NP [address] [facility] [place] [address] documented as of this encounter Visit Diagnoses Not on filedocumented in this encounter Care Teams Ware Cleaner Relationship Specialty Start Date End Date Alma Mcdaniel MD [address] [facility] [place] [address] PCP - General Family Medicine 08/05/22 Alma Mcdaniel MD [address] [facility] [place] [address] PCP - Medical [place] [employer] 06/27/18 10/16/24 Ayse Carmona NP [address] [facility] [place] [address] Nurse Practitioner Family Medicine 08/05/22 08/22/24 [place] Disla, RN [address] [facility] [place] [address] Registered Nurse Family Medicine 10/15/23 Sheldon Durham DO [address] [place] [address] Otolaryngology 03/03/24 Zoraida Rodriguez NP [address] [facility] [place] [address] Nurse Practitioner Family Medicine 08/23/24 documented as of this encounter
--- OUTSIDE RECORDS SUMMARY | 2024-10-25 09:37 | XMS_ITS | Encounter Summary ---
Author Organization [facility] Address [address] [place] [address] Care Team Providers Care Estimating Engineer Name Role Phone Alma Mcdaniel MD Primary Care Provider [phone] Ayse Carmona STACKER STRAIGHTENER Unavailable [phone] Alma Mcdaniel MD Unavailable [place] Disla RN Unavailable [phone] Sheldon Durham DO Unavailable [phone] Zoraida Rodriguez STACKER STRAIGHTENER Unavailable [phone] Encounter Details Date Type Department Care Team (Late Contact Info) Description 11/30/2018 Abstract [facility] [address] [place] [phone] Perla Caruso, [facility] [address] [place] [address] Social History Tobacco Use Types Packs/Day Years [...] Visit [facility] [address] [place] [address] Sheldon Durham DO [address] [place] [address] 11/20/2024 8:00 AM EDT [facility] [address] [facility] [place] [place] [address] Zoraida Rodriguez NP [address] [facility] [place] [place] [address] documented as of this encounter Visit Diagnoses Not on filedocumented in this encounter Care Teams Estimating Engineer Relationship Specialty Start Date End Date Alma Mcdaniel MD [facility] [place] [place] [address] PCP - General Family Medicine 08/05/22 Alma Mcdaniel MD [address] [facility] [place] [address] PCP - Medical [place] [employer] 06/27/18 10/16/24 Ayse Carmona NP [facility] [place] [place] [address] Nurse Practitioner Family Medicine 08/05/22 08/22/24 [place] Disla, RN [address] [facility] [place] [place] [address] Registered Nurse Family Medicine 10/15/23 Sheldon Durham DO [address] [place] [address] Otolaryngology 03/03/24 Zoraida Rodriguez NP [facility] [place] [address] Nurse Practitioner Family Medicine 08/23/24 documented as of this encounter
--- OUTSIDE RECORDS SUMMARY | 2024-10-25 09:37 | XMS_ITS | Encounter Summary ---
Author Organization [facility] Address [address] [place] [address] Care Team Providers Care Brim Flexer Name Role Phone Alma Mcdaniel MD Primary Care Provider [phone] Ayse Carmona SOAKERS SUPERVISOR Unavailable [phone] Alma Mcdaniel MD Unavailable [place] Disla RN Unavailable [phone] Sheldon Durham DO Unavailable [phone] Zoraida Rodriguez SOAKERS SUPERVISOR Unavailable [phone] Encounter Details Date Type Department Care Team (Late st Contact Info) Description 10/02/2022 Abstract [facility] [address] [facility] [phone] Batool Cannon MA Social History Tobacco Use [...] How often do you attend chur or anglican services? 1 to 4 times per year [...] Recorded Patient Health Questionnaire-2 Score 0 08/05/2022 [facility] [place] of Occupat ional Health - Occupational Stress [...] place to sleep or slept in a prison (including now)? No 08/05/2022 Comments Unknown Sex [...] Office Visit [facility] [address] [place] [address] Sheldon Durham DO [address] [place] [address] 11/20/2024 8:00 AM EDT Office Visit [facility] [address] [facility] [place] [address] Zoraida Rodriguez NP [address] [facility] [place] [address] documented as of this encounter Visit Diagnoses Not on filedocumented in this encounter Care Teams Brim Flexer Relationship Specialty Start Date End Date Alma Mcdaniel MD [address] [facility] [place] [place] [address] PCP - General Family Medicine 08/05/22 Alma Mcdaniel MD [address] [facility] [place] [address] PCP - Medical [place] [employer] 06/27/18 10/16/24 Ayse Carmona NP [address] [facility] [place] [address] Nurse Practitioner Family Medicine 08/05/22 08/22/24 [place] Disla, RN [address] [facility] [place] [address] Registered Nurse Family Medicine 10/15/23 Sheldon Durham DO [address] [place] [address] Otolaryngology 03/03/24 Zoraida Rodriguez NP [address] [facility] [place] [address] Nurse Practitioner Family Medicine 08/23/24 documented as of this encounter
--- OUTSIDE RECORDS SUMMARY | 2024-10-25 09:37 | XMS_ITS | Encounter Summary ---
Author Organization [facility] Address [address] [facility] [place] [address] Care Team Providers Care Photographer Apprentice Lithographic Name Role Phone Alma Mcdaniel MD Primary Care Provider [phone] Ayse Carmona BEAM SEALER Unavailable [phone] Alma Mcdaniel MD Unavailable [place] Disla RN Unavailable [phone] Sheldon Durham DO Unavailable [phone] Zoraida Rodriguez BEAM SEALER Unavailable [phone] Encounter Details Date Type Department Care Team (Late st Contact Info) Description 04/16/2024 Abstract [facility] Family Medicine [address] [place] [address] Alma Mcdaniel MD [address] [place], [place] [phone] Social History Tobacco Use Types Packs/Day Years [...] week 10/15/2023 How often do you attend [facility] or holiness services? More than 4 times per year 10/15/2023 Do you belong to any clubs o r organizations such as nondenominational groups, unions, fraternal or athletic groups, or [...] Patient Health Questionnaire-2 Score 0 08/05/2022 [facility] [place] of Occupat ional Health - Occupational Stress [...] place to sleep or slept in a mcc (including now)? No 08/05/2022 Housing Stability Vital Sign Answer August e Recorded In the last 12 months, was t here a time when you were not able to pay the mortgage or rent on time? No 10/15/2023 In the past 12 months, how m any times have you moved where you were living? 0 10/15/2023 At any time in the past 12 m [facility], were you homeless or living in a mcc (including now)? No 10/15/2023 Comments Unknown Sex [...] Office Visit [facility] [address] [place] [address] Sheldon Durham DO [address] [place] [address] 11/20/2024 8:00 AM EDT Office Visit [facility] [address] [facility] [place] [address] Zoraida Rodriguez NP [address] [facility] [place] [address] documented as of this encounter Visit Diagnoses Not on filedocumented in this encounter Care Teams Photographer Apprentice Lithographic Relationship Specialty Start Date End Date Alma Mcdaniel MD [address] [facility] [place] [address] PCP - General Family Medicine 08/05/22 Alma Mcdaniel MD [address] [facility] [place] [address] PCP - Medical [place] [employer] 06/27/18 10/16/24 Ayse Carmona NP [address] [facility] [place] [address] Nurse Practitioner Family Medicine 08/05/22 08/22/24 Alexanrdia Disla, L[place]TON [address] [facility] [place] [address] Registered Nurse Family Medicine 10/15/23 Sheldon Durham DO [address] [place] [address] Otolaryngology 03/03/24 Zoraida Rodriguez NP [address] [place] [address] Nurse Practitioner Family Medicine 08/23/24 documented as of this encounter
--- OUTSIDE RECORDS SUMMARY | 2024-10-25 09:37 | XMS_ITS | Encounter Summary ---
Author Organization [facility] Address [address] [place] [address] Care Team Providers Care Automotive Glazier Name Role Phone Alma Mcdaniel MD Primary Care Provider [phone] Ayse Carmona TORCH CUTTER Unavailable [phone] Alma Mcdaniel MD Unavailable [place] Disla RN Unavailable [phone] Sheldon Durham DO Unavailable [phone] Zoraida Rodriguez NP Unavailable [phone] Reason for Visit * Reason Comments Med Refill Encounter Details Date Type Department Care Team (Late st Contact Info) Description 01/27/2023 Refill [facility] Family Medicine [address] [place] [address] Ayse Carmona, TORCH CUTTER [address] [place] [address] Essential hypertension (Primary Dx); Mixed hyperlipidemia Social History Tobacco Use Types Packs/Day Years [...] How often do you attend chur or confucianist services? 1 to 4 times per year 08/05/2022 Do you belong to any clubs o r organizations such as bahai groups, unions, fraternal or athletic groups, or [...] Recorded Patient Health Questionnaire-2 Score 0 08/05/2022 [facility] [place] of Occupat ional Health - Occupational Stress [...] a long term (including now)? No 08/05/2022 Comments Unknown Sex [...] suspected to have Coronavirus/COVID-19? No / Unsure 01/12/2023 1:07 PM EST documented as of this encounter Miscellaneous Notes * Telephone Encounter - Alma Mcdaniel MD - 01/27/2023 1:35 PM EST Approvals with refills documented in this encounter Plan of Treatment Upcoming Encounters Date Type Department Care Team (Late st Contact Info) Description 10/26/2024 10:45 AM EDT Office Visit [facility] [address] [place] [address] Sheldon Durham DO [address] [place] [address] 11/20/2024 8:00 AM EDT Office Visit [facility] [address] [facility] [place] [address] Zoraida Rodriguez NP [address] [facility] [place] [address] documented as of this encounter Visit Diagnoses Diagnosis Essential hypertension- Primary Unspecified essential hypertension Mixed hyperlipidemia Mixed hyperlipidemia documented in this encounter Care Teams Automotive Glazier Relationship Specialty Start Date End Date Alma Mcdaniel MD [address] [facility] [place] [address] PCP - General Family Medicine 08/05/22 Alma Mcdaniel MD [address] [facility] [place] [address] PCP - Medical [place] [employer] 06/27/18 10/16/24 Ayse Carmona NP [address] [facility] [place] [address] Nurse Practitioner Family Medicine 08/05/22 08/22/24 [place] Disla, LAYTON [address] [facility] [place] [address] Registered Nurse Family Medicine 10/15/23 Sheldon Durham DO [address] [place] [address] Otolaryngology 03/03/24 Zoraida Rodriguez NP [address] [place] [address] Nurse Practitioner Family Medicine 08/23/24 documented as of this encounter
--- OUTSIDE RECORDS SUMMARY | 2024-10-25 09:37 | XMS_ITS | Encounter Summary ---
Author Organization [facility] Address [address] [place] [address] Care Team Providers Care Land Management Supervisor Name Role Phone Alma Mcdaniel MD Primary Care Provider [phone] Ayse Carmona VASCULAR SURGERY PHYSICIAN Unavailable [phone] Alma Mcdaniel MD Unavailable [place] Disla RN Unavailable [phone] Sheldon Durham DO Unavailable [phone] Zoraida Rodriguez NP Unavailable [phone] Reason for Visit * Reason Comments Med Refill Encounter Details Date Type Department Care Team (Late st Contact Info) Description 10/28/2022 Refill [facility] Family Medicine [address] [place] [address] Ayse Carmona, VASCULAR SURGERY PHYSICIAN [address] [place] [address] Essential hypertension (Primary Dx) Social History Tobacco Use Types [...] How often do you attend chur or mandaeism services? 1 to 4 times per year 08/05/2022 Do you belong to any clubs o r organizations such as confucianist groups, unions, fraternal or athletic groups, or [...] in a intermediate (including now)? No 08/05/2022 Comments Unknown Sex and Gender Information Value Date Recorded Sex Assigned at Not on file Legal Sex Female 7:23 PM EDT Gender Identity Not on file Sexual Orientation Not on file documented as of this encounter Miscellaneous Notes * Telephone Encounter - Alma Mcdaniel MD - 10/28/2022 11:11 AM EDT Approvals with refills documented in this encounter Plan of Treatment Upcoming Encounters Date Type Department Care Team (Late st Contact Info) Description 10/26/2024 10:45 AM EDT Office Visit [facility] [address] [place] [address] Sheldon Durham DO [address] [place] [address] 11/20/2024 8:00 AM EDT [facility] [address] [facility] [place] [address] Zoraida Rodriguez NP [address] [facility] [place] [address] documented as of this encounter Visit Diagnoses Diagnosis Essential hypertension- Primary Unspecified essential hypertension documented in this encounter Care Teams Land Management Supervisor Relationship Specialty Start Date End Date Alma Mcdaniel MD [address] [facility] [place] [address] PCP - General Family Medicine 08/05/22 Alma Mcdaniel MD [facility] [facility] [place] [address] PCP - Medical [place] [employer] 06/27/18 10/16/24 Ayse Carmona NP [facility] [facility] [place] [address] Nurse Practitioner Family Medicine 08/05/22 08/22/24 [place] Disla, LAYTON [address] [place] [address] Registered Nurse Family Medicine 10/15/23 Sheldon Durham DO [address] [place] [address] Otolaryngology 03/03/24 Zoraida Rodriguez NP [address] [facility] [place] [address] Nurse Practitioner Family Medicine 08/23/24 documented as of this encounter
--- OUTSIDE RECORDS SUMMARY | 2024-10-25 09:37 | XMS_ITS ---
Author Organization [facility] Address [address] [place] [address] Care Team Providers Care Laborer Cheesemaking Name Role Phone Alma Mcdaniel MD Primary Care Provider [phone] [place] Disla RN Unavailable [phone] Sheldon Durham DO Unavailable [phone] Zoraida Rodriguez NP Unavailable [phone] 30 Day Monitoring Program Status:Enrolled (Active) Start date:10/10/2024 Enrollment date:10/10/2024 Enrollment reason:Identified as hospital admit Overview Hosp susie completed. Case Team Name Relationship Phone [place] Disla RN(Responsible Staff) Registered Nurse [phone] Continued Care and Services Coordination
--- OUTSIDE RECORDS SUMMARY | 2024-10-25 09:37 | XMS_ITS ---
Author Organization [facility] Address [address] [place] [facility] [place] [address] Care Team Providers Care Game Advisor Name Role Phone Alma Mcdaniel MD Primary Care Provider [phone] [place] Disla RN Unavailable [phone] Sheldon Durham DO Unavailable [phone] Zoraida Rodriguez NP Unavailable [phone] Chronic Care Management (CCM) Status:Enrolled (Active) Start date:10/14/2023 Enrollment date:10/14/2023 Enrollment reason:Identified as hospital admit Overview Please assess for Care Management needs. 10/15/23, 2:15 PM - [place] Disla RN- Patient gives verbal consent to be enrolled in CCM Program and understands there could be a bill for this service. Pt is a risk score 5, ccm bill no, med mutual. Case Team Name Relationship Phone [place] Disla RN(Responsible Staff) Registered Nurse [phone] Continued Care and Services Coordination
--- OUTSIDE RECORDS SUMMARY | 2024-10-25 09:37 | XMS_ITS | Encounter Summary ---
Author Organization [facility] Address [address] [place] [address] Care Team Providers Care Pigment Pumper Name Role Phone Alma Mcdaniel MD Primary Care Provider [phone] Ayse Carmona COMMUNICATIONS PROFESSOR Unavailable Alma Mcdaniel MD Unavailable [place] Disla RN Unavailable [phone] Sheldon Durham DO Unavailable Zoraida Rodriguez NP Unavailable [phone] Encounter Details Date Type Department Care Team (Late st Contact Info) Description 07/21/2022 [facility] [address] [place] [address] Ayse Carmona, COMMUNICATIONS PROFESSOR [address] [place] [address] Social History Tobacco Use Types Packs/Day Years [...] Visit [facility] [address] [place] [address] Sheldon Durham DO [address] [place] [address] 11/20/2024 8:00 AM EDT Office Visit [facility] [address] [facility] [place] [address] Zoraida Rodriguez NP [address] [place] [address] documented as of this encounter Visit Diagnoses Not on filedocumented in this encounter Care Teams Pigment Pumper Relationship Specialty Start Date End Date Alma Mcdaniel MD [facility] [place] [address] PCP - General Family Medicine 08/05/22 Alma Mcdaniel MD [facility]9 [place] [address] PCP - Medical [place] [employer] 06/27/18 10/16/24 Ayse Carmona NP [facility]9 [place] [address] Nurse Practitioner Family Medicine 08/05/22 08/22/24 [place] Disla, RN [address] [place] [address] Registered Nurse Family Medicine 10/15/23 Sheldon Durham DO [address] [place] [address] Otolaryngology 03/03/24 Zoraida Rodriguez NP [facility]9 [place] [address] Nurse Practitioner Family Medicine 08/23/24 documented as of this encounter
--- OUTSIDE RECORDS SUMMARY | 2024-10-25 09:37 | XMS_ITS ---
Author Organization [facility] Address [address] [place] [facility] [place] [address] Care Team Providers Care Military Technology Manager Name Role Phone Alma Mcdaniel MD Primary Care Provider [phone] [place] Disla RN Unavailable [phone] Sheldon Durham DO Unavailable [phone] Zoraida Rodriguez LEGAL OFFICER Unavailable [phone] Inpatient Discharge Transitional Care Management (TCM) Status:Closed (Closed) Start date:10/06/2024 Enrollment date:10/10/2024 Enrollment reason:Identified using hospital discharge data End date:10/19/2024 Close reason:Moved to 30 Day Monitoring Program Overview Patient discharged from [facility] on 10/06. Please contact for hospital TOCand schedule follow-up appointment within 7-14 days. Continued Care and Services Coordination
--- OUTSIDE RECORDS SUMMARY | 2024-10-25 09:37 | XMS_ITS | Encounter Summary ---
Author Organization [facility] Address [address] [place] [address] Care Team Providers Care Senior Service Technician Name Role Phone Alma Mcdaniel MD Primary Care Provider [phone] Ayse Carmona BOTTLE FEEDER Unavailable [phone] Alma Mcdaniel MD Unavailable [place] Disla RN Unavailable [phone] Sheldon Durham DO Unavailable [phone] Zoraida Rodriguez BOTTLE FEEDER Unavailable [phone] Encounter Details Date Type Department Care Team (Late Contact Info) Description 12/20/2018 Abstract [facility] [address] [place] [address] Perla Caruso, [facility] [address] [place] [address] Social History Tobacco Use Types Packs/Day Years [...] Visit [facility] [address] [place] [address] Sheldon Durham DO [address] [place] [address] 11/20/2024 8:00 AM EDT [facility] [address] [facility] [place] [address] Zoraida Rodriguez NP [address] [facility] [place] [address] documented as of this encounter Visit Diagnoses Not on filedocumented in this encounter Care Teams Senior Service Technician Relationship Specialty Start Date End Date Alma Mcdaniel MD [facility]9 [facility] [place] [address] PCP - General Family Medicine 08/05/22 Alma Mcdaniel MD [address] [facility] [place] [address] PCP - Medical [place] [employer] 06/27/18 10/16/24 Ayse Carmona NP [facility]9 [facility] [place] [address] Nurse Practitioner Family Medicine 08/05/22 08/22/24 [place] Disla, RN [address] [facility] [place] [address] Registered Nurse Family Medicine 10/15/23 Sheldon Durham DO [address] [place] [address] Otolaryngology 03/03/24 Zoraida Rodriguez NP [facility] [place] [address] Nurse Practitioner Family Medicine 08/23/24 documented as of this encounter
--- OUTSIDE RECORDS SUMMARY | 2024-10-25 09:37 | XMS_ITS | Encounter Summary ---
Author Organization [facility] Address [address] [place] [address] Care Team Providers Care Caregivers Homecare Name Role Phone Alma Mcdaniel MD Primary Care Provider [phone] Ayse Carmona CREDIT CONTROL ADMINISTRATOR Unavailable [phone] Alma Mcdaniel MD Unavailable Alexandria Disla RN Unavailable [phone] Sheldon Durham DO Unavailable [phone] Zoraida Rodriguez CREDIT CONTROL ADMINISTRATOR Unavailable [phone] Encounter Details Date Type Department Care Team (Late Contact Info) Description 09/16/2020 Abstract [facility] [address] [place] [phone] Perla Caruso, [facility] [address] [place] [address] Social History Tobacco Use Types Packs/Day Years [...] Visit [facility] [address] [place] [address] Sheldon Durham DO [address] [place] [address] 11/20/2024 8:00 AM EDT Office [facility] [address] [facility] [place] [phone] Zoraida Rodriguez NP [address] [facility] [place] [address] documented as of this encounter Visit Diagnoses Not on filedocumented in this encounter Care Teams Caregivers Homecare Relationship Specialty Start Date End Date Alma Mcdaniel MD [facility] [facility] [place] [address] PCP - General Family Medicine 08/05/22 Alma Mcdaniel MD [address] [facility] [place] [address] PCP - Medical [employer] 06/27/18 10/16/24 Ayse Carmona NP [address] [facility] [place] [address] Nurse Practitioner Family Medicine 08/05/22 08/22/24 Alexandria Disla, RN [address] [facility] [address] [place] [address] Registered Nurse Family Medicine 10/15/23 Sheldon Durham DO [address] [place] [address] Otolaryngology 03/03/24 Zoraida Rodriguez NP [address] [place] [address] Nurse Practitioner Family Medicine 08/23/24 documented as of this encounter
--- OUTSIDE RECORDS SUMMARY | 2024-10-25 09:37 | XMS_ITS | Encounter Summary ---
Author Organization [facility] Address [address] [place] [address] Care Team Providers Care Charging Plug Placer Name Role Phone Alma Mcdaniel MD Primary Care Provider [phone] Ayse Carmona SWITCH ENGINEER Unavailable Alma Mcdaniel MD Unavailable Alexandria Disla RN Unavailable [phone] Sheldon Durham DO Unavailable Zoraida Rodriguez NP Unavailable [phone] Encounter Details Date Type Department Care Team (Late st Contact Info) Description 07/21/2022 [facility] [address] [place] [phone] Ayse Carmona, SWITCH ENGINEER [address] [place] [phone] Social History Tobacco Use Types Packs/Day Years [...] Visit [facility] [address] [place] [address] Sheldon Durham DO [address] [place] [address] 11/20/2024 8:00 AM EDT Office Visit [facility] [address] [facility] [place] [phone] Zoraida Rodriguez NP [address] [place] [address] documented as of this encounter Visit Diagnoses Not on filedocumented in this encounter Care Teams Charging Plug Placer Relationship Specialty Start Date End Date Alma Mcdaniel MD [facility] [facility] [place] [address] PCP - General Family Medicine 08/05/22 Alma Mcdaniel MD [facility] [place] [address] PCP - Medical [employer] 06/27/18 10/16/24 Ayse Carmona NP [facility] [place] [address] Nurse Practitioner Family Medicine 08/05/22 08/22/24 Alexandria Disla, RN [address] [place] [address] Registered Nurse Family Medicine 10/15/23 Sheldon Durham DO [address] [place] [address] Otolaryngology 03/03/24 Zoraida Rodriguez NP [facility] [place] [address] Nurse Practitioner Family Medicine 08/23/24 documented as of this encounter
--- OUTSIDE RECORDS SUMMARY | 2024-10-25 09:53 | XMS_ITS | CCD ---
Author Organization [facility] [employer] Care Team Providers Care Dispensing And Measuring Optician Name Role Phone DALTON LAGUNA Unavailable Unavailable JONAS, DOMINIK F Unavailable Unavailable JONAS, DR BLANDON Admitting Unavailable JONAS, DR BLANDON Attending Unavailable JONAS, DR BLANDON Primary Care Unavailable JONAS, DR BLANDON Consulting Unavailable ZIEBER, DR CUBA Ruiz Consulting Unavailable MD Dominik Mcdaniel Primary Care Provider DO Sheldon Lal Attending Provider [phone] Dominik Mcdaniel MD Primary Care Provider Kristine BUSINESS INTELLIGENCE MANAGER, Ayse Adams Unavailable Kristine BUSINESS INTELLIGENCE MANAGER, Ayse Adams Unavailable [phone] MD Jonas Dominik Primary Care Provider [phone] MD David La Attending Provider [phone] MD Dominik Mcdaniel Primary Care Provider MD David La Attending Provider [phone] MAURILIO Crawford Emergency Provider [phone] GIOVANNI RANGEL Attending Unavailable JONAS, DOMINIK F Referring Unavailable JONAS, DOMINIK F Primary Care Unavailable GIOVANNI RANGEL Attending Unavailable JONAS, DOMINIK F Referring Unavailable JONAS, DOMINIK F Primary Care Unavailable NOEMÍ SOMMER Attending Unavailable JONAS, DOMINIK F Referring Unavailable JONAS, DOMINIK F Primary Care Unavailable GIOVANNI RANGEL Attending Unavailable JONAS, DOMINIK F Referring Unavailable JONAS, DOMINIK F Primary Care Unavailable GIOVANNI RANGEL Attending Unavailable JONAS, DOMINIK F Referring Unavailable JONAS, DOMINIK F Primary Care Unavailable GIOVANNI RANGEL Attending Unavailable JONAS, DOMINIK F Referring Unavailable JONAS, DOMINIK F Primary Care Unavailable JUAN CARLOSGIOVANNI ABBOTT Attending Unavailable JONAS, DOMINIK F Referring Unavailable JONAS, DOMINIK F Primary Care Unavailable JUAN CARLOSGIOVANNI Attending Unavailable JONAS, DOMINIK F Referring Unavailable JONAS, DOMINIK F Primary Care Unavailable KEMALNOEMÍ VILLALTA Attending Unavailable JONAS, DOMINIK F Referring Unavailable JONAS, DOMINIK F Primary Care Unavailable KEMALNOEMÍ VILLALTA Attending Unavailable JONAS, DOMINIK F Referring Unavailable JONAS, DOMINIK F Primary Care Unavailable Kristine BUSINESS INTELLIGENCE MANAGER, Ayse Adams Unavailable Jonas VENTURA, Dominik Karly Unavailable Naif TRAYLOR, Crystal Unavailable MD Jonas [facility] Primary Care Provider MAURILIO Crawford Emergency Provider MD David La Attending Provider Marva SPEARSSheldon S Unavailable Jonas VENTURA, [facility] Primary Care Provider David La MD Attending Provider Jonas VENTURA, [facility] Primary Care Provider David La MD Attending Provider Jonas VENTURA, [facility] Care Provider [phone] David La MD Attending Provider Steffi BUSINESS INTELLIGENCE MANAGER, Grisel Attending Provider [phone] Myriam Lebron MD Attending Provider Roxie Rodriguez APRN Referring Provider Jonas VENTURA, [facility] Primary Care Provider [phone] Myriam Lebron MD Attending Provider Roxie Rodriguez APRN Referring Provider Jonas VENTURA, [facility] Primary Care Provider Steffi BUSINESS INTELLIGENCE MANAGER, Grisel Attending Provider [phone] Yael Joya MD Attending Provider Naif TRAYLOR, Crystal Unavailable Jonas VENTURA, Dominik Primary Care Provider [phone] Garner BUSINESS INTELLIGENCE MANAGER, Grisel Attending Provider Vi VENTURA, Myriam Vásquez Attending Provider [phone] Charlotte VENTURA, David Redd Attending Provider Mahnaz VENTURA, Yael Ruiz Attending Provider Jennifer BUSINESS INTELLIGENCE MANAGER, Roxie Unavailable Sheldon Lal DO Attending Provider Jonas VENTURA, Dominik Primary Care Provider Steffi BUSINESS INTELLIGENCE MANAGER, Grisel Attending Provider [phone] Faizan VENTURA, Nisha Ruiz Emergency Provider [phone] Jacquelin VENTURA, Pedro Luis Baca Admit Provider Jacquelin VENTURA, Pedro Luis Baca Attending Provider Ada VENTURA, Damien Hager Other Provider John VENTURA, Ingris Other Provider Magdy VENTURA, Watson Rivera Attending Provider [phone] Cedric Quiñonez DO Attending Provider Cedric Quiñonez DO Other Provider Pastora Ngo APRN Other Provider Nisha Venegas DO Other Provider Raghavendra De La Torre DO Other Provider Wolfgang Burch DO Other Provider Conrado Eaton MD Other Provider DOMINIK MCDANIEL Attending Unavailable RUTHY PANTOJA Attending Unavailable DAVID LA Referring Unavailable RUTHY PANTOJA Attending Unavailable DAVID LA Referring Unavailable TUYET COSBY Attending Unavailable DAVID LA Referring Unavailable JONAS, DOMINIK F Attending Unavailable JONAS, DOMINIK F Referring Unavailable JONAS DOMINIK F Attending Unavailable JONAS DOMINIK F Attending Unavailable ROXIE RODRIGUEZ Attending Unavailable ROXIE RODRIGUEZ Attending Unavailable NADIA PALMER Attending Unavailable ROXIE RODRIGUEZ Referring Unavailable BIEDENBACH, SHELDON Redd Attending Unavailable JONAS, DOMINIK F Referring Unavailable BIEDENBACH, SHELDON S Referring Unavailable BIEDENBACH, SHELDON Redd Attending Unavailable MAJORS, ROXIE Attending Unavailable NADIA PALMER Attending Unavailable BIEDENBACH, SHELDON Redd Attending Unavailable BIEDENBACH, SHELDON Redd Attending Unavailable MAJORS, ROXIE Attending Unavailable SYLVESTER, STEHPANIE R Attending Unavailable ML, ELIA Cui Attending Unavailable BJ MOORE Attending Unavailable PELAYO, STEPHANIE R Attending Unavailable PELAYO, STEPHANIE R Referring Unavailable PELAYO, STEPHANIE R Attending Unavailable JONAS, DOMINIK F Attending Unavailable BIEDENBACH, SHELDON S Attending Unavailable JONAS, DOMINIK F Referring Unavailable Pedro Luis Roper Admitting Unavailable Ingris Lopez Attending Unavailable [facility] Primary Care Unavailable Cedric Quiñonez Consulting Unavailable Jeni, Pastora Adams Consulting Unavailable Theo, Nisha Consulting Unavailable Parenteau, Raghavendra Consulting Unavailable Burch, Wolfgang Consulting Unavailable Uma, Conrado Consulting Unavailable Biedenbach, Sheldon Admitting Unavailable Biedenbach, Sheldon Attending Unavailable Jonas, [facility] Primary Care Unavailable Biedenbach, Sheldon Admitting Unavailable Biedenbach, Sheldon Attending Un[facility]available Charlotte, David S Attending Unavailable Charlotte, David S Admitting [facility] Unavailable Charlotte, David S Attending Unavailable Charlotte, David S Admitting Unavailable [facility] Primary Care Unavailable Charlotte, David S Attending Unavailable Charlotte, David S Admitting Unavailable [facility] Primary Care Unavailable Majorhien, Roxie L Referring Unavailable Jeff-Myriam Merlos Admitting Unavailabl e Jeff-Myriam Merlos [place] Attending Unavailabl e [facility] Primary Care Unavailable Charlotte, David S Admitting Unavailable Charlotte, David S Attending Unavailable [facility] Unavailable Garner, Grisel Admitting Unavailable Garner, Grisel Attending [facility]available [facility] Unavailable Garner, Grisel Admitting Unavailable Garner, Grisel Attending Unavailable Yael Joya Admitting Unavailable Yael Joya Attending Unavailable [facility] Primary Care Unavailable Allergies Allergy Classification Reported Allergen(s) Allergy Type Date of Onset Reaction(s) Facility (5 sources) Acyclovir; Translations: [ACYCLOVIR] Drug Allergy 3 Headache [facility] Repository (1 source) Tuberculin Nicole Drug allergy (disorder) 5 [facility] (3 sources) Tuberculosis skin test Allergy to substance 0 Rash [facility] (20 sources) Acyclovir Drug Allergy 7 Unknown [facility] (20 sources) Tuberculin Tests Drug Allergy 3 Unknown [facility] Healthcare (1 source) TUBERCULIN; Translations: [TUBERCULIN] Propensity to adverse reactions to drug (disorder) 7 [facility] Repository (1 source) Acyclovir Drug Allergy 5 [facility] Rep[facility] Medications Current Medications Medication Drug Class(es) Dates Sig (Normalized) Sig (Original) acetaminophen 325 mg / HYDROcodone bitartrate 5 mg oral tablet (20 sources) Opioid Agonist Start: 10-16-2024 End: 10-18-2024 take 1 tablet by mouth every six hours for pain HYDROcodone-aceta minophen ([place]) 5-325 MG tablet Indications: Other chronic pain , Chronic bilateral low back pain with bilateral sciatica Take 1 tablet by mouth every 6 (six) hours if needed for severe pain for up to 2 days 8 tablet 10/16/2024 10/18/2024 Active Start: 09-20-2024 End: 09-28-2024 take 1 tablet by mouth every six hours as needed for pain Hydrocodone-Acetaminophen 5-325 mg table t Discontinued 1 TAB PO Every 6 hours as needed for pain 20 7 September 20, 2024 September 28, 2024 10:13am Start: 08-30-2024 End: 09-28-2024 take 1 tablet by mouth twice daily as needed for pain Hydrocodone-Acetaminophen 5-325 mg table t Discontinued 1 TAB PO Twice daily as needed for pain 60 August 30, 2024 September 28, 2024 10:13am Start: 08-30-2024 take 1 tablet by ashvin th twice daily as needed for pain Hydrocodone-Acetaminophen 5-325 mg table t Active 1 TAB PO Twice daily as needed for pain 60 August 30, 2024 Complies with drug therapy Start: 07-31-2024 End: 08-24-2024 take 1 tablet by mouth twice daily as needed for pain Hydrocodone-Acetaminophen 5-325 mg table t Discontinued 1 TAB PO Twice daily as needed for pain 60 July 31, 2024 August 24, 2024 9:45am Start: 07-31-2024 take 1 tablet by ashvin th twice daily as needed for pain Hydrocodone-Acetaminophen 5-325 mg table t Active 1 TAB PO Twice daily as needed for pain 60 July 31, 2024 Start: 07-01-2024 End: 07-21-2024 take 1 tablet by mouth twice daily as needed for pain Hydrocodone-Acetaminophen 5-325 mg table t Discontinued 1 TAB PO Twice daily as needed for pain 60 July 01, 2024 July 21, 2024 10:36am Start: 07-01-2024 take 1 tablet by ashvin th twice daily as needed for pain Hydrocodone-Acetaminophen 5-325 mg table t Active 1 TAB PO Twice daily as needed for pain 60 July 01, 2024 Start: 07-01-2024 take 1 tablet by ashvin th twice daily as needed for pain Hydrocodone-Acetaminophen 5-325 mg table t Active 1 TAB PO Twice daily as needed for pain 60 July 01, 2024 Start: 07-01-2024 take 1 tablet by ashvin th twice daily as needed for pain Hydrocodone-Acetaminophen 5-325 mg table t Active 1 TAB PO Twice daily as needed for pain 60 July 01, 2024 Start: 06-01-2024 End: 06-29-2024 take 1 tablet by mouth twice daily as needed for pain Hydrocodone-Acetaminophen 5-325 mg table t Discontinued 1 TAB PO Twice daily as needed for pain 60 June 01, 2024 June 29, 2024 9:22am Start: 06-01-2024 take 1 tablet by ashvin th twice daily as needed for pain Hydrocodone-Acetaminophen 5-325 mg table t Active 1 TAB PO Twice daily as needed for pain 60 June 01, 2024 Start: 05-02-2024 End: 05-25-2024 take 1 tablet by mouth twice daily as needed for pain Hydrocodone-Acetaminophen 5-325 mg table t Discontinued 1 TAB PO Twice daily as needed for pain 60 May 02, 2024 May 25, 2024 10:16am Start: 05-01-2024 End: 04-27-2024 take 1 tablet by mouth twice daily as needed for pain Hydrocodone-Acetaminophen 5-325 mg table t Discontinued 1 TAB PO Twice daily as needed for pain 60 May 01, 2024 April 27, 2024 10:56am Start: 05-01-2024 End: 04-27-2024 take 1 tablet by mouth twice daily as needed for pain Hydrocodone-Acetaminophen 5-325 mg table t Discontinued 1 TAB PO Twice daily as needed for pain 60 May 01, 2024 April 27, 2024 10:56am Start: 05-01-2024 End: 04-27-2024 take 1 tablet by mouth twice daily as needed for pain Hydrocodone-Acetaminophen 5-325 mg table t Discontinued 1 TAB PO Twice daily as needed for pain 60 May 01, 2024 April 27, 2024 10:56am Start: 05-01-2024 End: 04-27-2024 take 1 tablet by mouth twice daily as needed for pain Hydrocodone-Acetaminophen 5-325 mg table t Discontinued 1 TAB PO Twice daily as needed for pain 60 May 01, 2024 April 27, 2024 10:56am Start: 05-01-2024 End: 04-27-2024 take 1 tablet by mouth twice daily as needed for pain Hydrocodone-Acetaminophen 5-325 mg table t Discontinued 1 TAB PO Twice daily as needed for pain 60 May 01, 2024 April 27, 2024 10:56am Start: 05-01-2024 End: 04-27-2024 take 1 tablet by mouth twice daily as needed for pain Hydrocodone-Acetaminophen 5-325 mg table t Discontinued 1 TAB PO Twice daily as needed for pain 60 May 01, 2024 April 27, 2024 10:56am Start: 05-01-2024 End: 04-27-2024 take 1 tablet by mouth twice daily as needed for pain Hydrocodone-Acetaminophen 5-325 mg table t Discontinued 1 TAB PO Twice daily as needed for pain 60 May 01, 2024 April 27, 2024 10:56am Start: 05-01-2024 End: 04-27-2024 take 1 tablet by mouth twice daily as needed for pain Hydrocodone-Acetaminophen 5-325 mg table t Discontinued 1 TAB PO Twice daily as needed for pain 60 May 01, 2024 April 27, 2024 10:56am Start: 05-01-2024 End: 04-27-2024 take 1 tablet by mouth twice daily as needed for pain Hydrocodone-Acetaminophen 5-325 mg table t Discontinued 1 TAB PO Twice daily as needed for pain 60 May 01, 2024 April 27, 2024 10:56am Start: 05-01-2024 End: 04-27-2024 take 1 tablet by mouth twice daily as needed for pain Hydrocodone-Acetaminophen 5-325 mg table t Discontinued 1 TAB PO Twice daily as needed for pain 60 May 01, 2024 April 27, 2024 10:56am Start: 05-01-2024 End: 04-27-2024 take 1 tablet by mouth twice daily as needed for pain Hydrocodone-Acetaminophen 5-325 mg table t Discontinued 1 TAB PO Twice daily as needed for pain 60 May 01, 2024 April 27, 2024 10:56am Start: 05-01-2024 End: 04-27-2024 take 1 tablet by mouth twice daily as needed for pain Hydrocodone-Acetaminophen 5-325 mg table t Discontinued 1 TAB PO Twice daily as needed for pain 60 May 01, 2024 April 27, 2024 10:56am Start: 05-01-2024 End: 04-27-2024 take 1 tablet by mouth twice daily as needed for pain Hydrocodone-Acetaminophen 5-325 mg table t Discontinued 1 TAB PO Twice daily as needed for pain 60 May 01, 2024 April 27, 2024 10:56am Start: 05-01-2024 take 1 tablet by ashvin th twice daily as needed for pain Hydrocodone-Acetaminophen 5-325 mg table t Active 1 TAB PO Twice daily as needed for pain 60 May 01, 2024 Start: 04-02-2024 End: 04-27-2024 take 1 tablet by mouth twice daily as needed for pain Hydrocodone-Acetaminophen 5-325 mg table t Discontinued 1 TAB PO Twice daily as needed for pain 60 April 02, 2024 April 27, 2024 10:38am Start: 03-03-2024 End: 03-03-2024 take 1 tablet by mouth twice daily as needed for pain Hydrocodone-Acetaminophen 5-325 mg table t Discontinued 1 TAB PO Twice daily as needed for pain 30 March 03, 2024 March 03, 2024 10:20am Start: 12-26-2023 End: 03-31-2024 take 1 tablet by mouth twice daily as needed for pain Hydrocodone-Acetaminophen 5-325 mg table t Discontinued 1 TAB PO Twice daily as needed for pain 60 March 03, 2024 March 31, 2024 10:59am Start: 11-26-2023 End: 10-16-2024 take 1 tablet by mouth every twenty-four hours as needed HYDROcodone-acetaminophen ([place]) 5-325 MG tablet Take 1 tablet by mouth Daily as needed 11/26/2023 10/16/2024 Discontinued Start: 10-12-2023 End: 10-20-2023 take 1 tablet by mouth every six hours as needed for pain Hydrocodone-Acetaminophen 5-325 mg table t Discontinued 1 TAB PO Every 6 hours as needed for pain 10 October 12, 2023 October 20, 2023 8:25am Start: 10-09-2019 End: 06-04-2023 take 2 tablets by mouth every six hours as needed for pain Hydrocodone-Acetaminophen ([place]) 5-325 mg tablet Discontinued 2 TAB PO Q6H as needed for pain 30 October 09, 2019 June 04, 2023 8:57am [id number] 200 actuat albuterol 0.09 mg/actuat metered dose inhaler (20 sources) beta2-Adrenergic Agonist Start: 01-10-2024 albut tristin HFA 90 mcg/act inhaler Indications: Chronic obstructive pulmonary disease, unspecified COPD type (HCC) USE 2 INHALATIONS EVERY 4 HOURS IF NEEDED FOR WHEEZING OR SHORTNESS OF BREATH 17 g 4 01/10/2024 Active Start: 09-15-2023 take 2 puff(s) by in halation every four hours for wheezing albuterol HFA 90 mcg/act inhaler Indications: Chronic obstructive pulmonary disease, unspecified COPD type (CMS/HCC) Inhale 2 puffs every 4 (four) hours if needed for wheezing or shortness of breath 18 g 1 09/15/2023 Active Start: 06-04-2023 Start: 05-17-2022 take 2 puff(s) by in halation every four hours albuterol HFA 90 mcg/act inhaler Inhale 2 puffs every 4 (four) hours if needed. 0 05/17/2022 Active albuterol 0.833 mg/ml / ipratropium bromide 0.167 mg/ml inhalation solution (20 sources) Anticholinergic, beta2-Adrenergic Agonist Start: 12-31-2023 End: 12-30-2024 ipratropium-albuterol (Duo-Neb) 0.5-2.5 mg/3 mL nebulizer solution Indications: COPD exacerbation (HCC) USE 3 ML VIA NEBULIZER EVERY 6 HOURS 180 mL 11 01/31/2024 Active amoxicillin 875 mg / clavulanate 125 mg oral tablet (7 sources) Penicillin-class Antibacterial Start: 10-06-2024 End: 10-16-2024 take 1 tablet by mouth in the morning amoxicillin-clavulanate (Augmentin) 875-125 MG tablet Take 875 mg by mouth in the morning and 875 mg before bedtime. 10/06/2024 10/16/2024 Discontinued Start: 10-06-2024 take 1 tablet by mouth twice d aily ARIPiprazole 5 mg oral tablet (20 sources) Atypical Antipsychotic Start: 06-23-2024 End: 07-23-2024 take 1 tablet by mouth once daily ARIPiprazole (Abilify) 5 MG tablet Indications: Bipolar disorder, current episode depressed, moderate (HCC) Take 1 tablet (5 mg) by mouth Daily 30 tablet 3 06/23/2024 Active Start: 06-04-2023 End: 05-16-2024 take 1 tablet by mouth once daily Aripiprazole 5 mg tablet Discontinued 5 MG PO Daily June 04, 2023 12:00am May 16, 2024 9:33am Start: 04-05-2023 take 1 tablet by ashvin th once daily in the morning ARIPiprazole (Abilify) 5 MG tablet Indications: Anxiety take 1 tablet by mouth every morning 90 tablet 0 04/05/2023 Active atorvastatin 20 mg oral tablet (20 sources) HMG-CoA Reductase Inhibitor Start: 10-09-2019 atorvastatin (Lipitor) 20 MG tablet Indications: Mixed hyperlipidemia TAKE 1 TABLET DAILY 90 tablet 3 01/24/2024 Active azithromycin 250 mg oral tablet (8 sources) Macrolide Antimicrobial Start: 12-27-2023 azithromycin (Zithromax) 250 MG tablet Indications: Pneumonia of left upper lobe due to Mycoplasma pneumoniae Take 2 today then on daily until gone 6 tablet 12/27/2023 Active bumetanide 1 mg oral tablet (20 sources) Loop Diuretic Start: 10-19-2023 End: 02-18-2024 take 1 tablet by mouth once daily bumetanide (Bumex) 1 MG tablet Indications: Lower leg edema Take 1 tablet (1 mg) by mouth Daily 30 tablet 11 02/18/2024 Active 168 hr buprenorphine 0.0075 mg/hr transdermal system (7 sources) Partial Opioid Agonist Start: 10-06-2024 End: 10-16-2024 apply 1 dose transdermal route every week buprenorphine (Butrans) 7.5 MCG/HR Place 1 patch on the skin 1 (one) time per week 10/06/2024 10/16/2024 Discontinued Start: 10-06-2024 cefadroxil 500 mg oral capsule (9 sources) Cephalosporin Antibacterial Start: 09-20-2024 End: 10-16-2024 cefadroxil (Duricef) 500 MG capsule Twice daily 09/20/2024 10/16/2024 Discontinued cefuroxime 500 mg oral tablet (2 sources) Cephalosporin Antibacterial Start: 12-31-2023 End: 01-10-2024 take 1 tablet by mouth in the morning cefuroxime (Ceftin) 500 MG tablet Indications: COPD exacerbation (CMS/HCC) Take 1 tablet (500 mg) by mouth in the morning and 1 tablet (500 mg) before bedtime. Do all this for 10 days. 20 tablet 12/31/2023 01/10/2024 Active cephalexin 500 mg oral capsule (16 sources) Cephalosporin Antibacterial Start: 10-13-2024 cephalexin (Keflex) 500 MG capsule 10/13/2024 Active Start: 08-29-2024 End: 09-11-2024 take 1 capsule by mouth in the morning, then take 1 capsule by mouth in the evening, then take 1 capsule by mouth at bedtime cephalexin (Keflex) 500 MG capsule Indications: Cellulitis of right toe Take 1 capsule (500 mg) by mouth in the morning and 1 capsule (500 mg) in the evening and 1 capsule (500 mg) before bedtime. Do all this for 7 days. 21 capsule 08/29/2024 09/11/2024 Discontinued Start: 07-21-2024 End: 09-12-2024 take 1 capsule by mouth twice daily Cephalexin 250 mg capsule Discontinued 250 MG PO Twice daily July 21, 2024 12:00am September 12, 2024 11:28am Start: 07-20-2024 End: 08-01-2024 take 1 capsule by mouth in the morning, then take 1 capsule by mouth in the evening, then take 1 capsule by mouth at bedtime cephalexin (Keflex) 500 MG capsule Indications: Dysuria Take 1 capsule (500 mg) by mouth in the morning and 1 capsule (500 mg) in the evening and 1 capsule (500 mg) before bedtime. Do all this for 5 days. 15 capsule 07/20/2024 08/01/2024 Discontinued cholecalciferol 0.05 mg oral capsule (20 sources) Vitamin D Start: 06-04-2023 End: 03-31-2025 take 1 capsule by mouth once daily cholecalciferol (Vitamin D-3) 50 MCG (2000 UT) capsule Indications: Vitamin D deficiency Take 1 capsule (50 mcg) by mouth Daily 90 capsule 3 03/31/2024 03/31/2025 Active Start: 02-21-2022 End: 03-31-2024 take 1 capsule by mouth in the morning cholecalciferol (Vitamin D-3) 50 MCG (2000 UT) capsule Take 2,000 Units by mouth in the morning. 02/21/2022 03/31/2024 Discontinued (Reorder) ciprofloxacin 500 mg oral tablet (20 sources) Quinolone Antimicrobial Start: 08-01-2024 End: 08-15-2024 take 1 tablet by mouth in the morning ciprofloxacin (Cipro) 500 MG tablet Indications: Dysuria Take 1 tablet (500 mg) by mouth in the morning and 1 tablet (500 mg) before bedtime. Do all this for 7 days. 14 tablet 08/01/2024 08/15/2024 Discontinued Start: 10-09-2019 End: 06-04-2023 Ciprofloxacin Hcl 0.2 % drop perette Discontinued 5 DROPS EAR-RIGHT Every 8 hours 14 October 09, 2019 12:00am June 04, 2023 8:57am Start: 10-09-2019 End: 06-04-2023 Ciprofloxacin Hcl Discontinu ed 5 DROPS EAR-RIGHT Every 8 hours 14 October 08, 2019 11:00pm June 04, 2023 7:57am dexamethasone phosphate 1 mg/ml ophthalmic solution (7 sources) Corticosteroid Start: 10-06-2024 End: 10-16-2024 dexAMETHasone (Decadron) 0.1 % ophthalmic solution Four times daily 10/06/2024 10/16/2024 Discontinued Start: 10-06-2024 take 1 drop(s) into the eye(s) four times daily fluconazole 150 mg oral tablet (4 sources) Azole Antifungal Start: 10-20-2024 End: 10-21-2024 fluconazole (Diflucan) 150 MG tablet Indications: Candidiasis Take 1 tablet (150 mg) by mouth See administration instructions for 1 day Take one tab now. Repeat in 7 days if symptoms persist. 2 tablet 10/20/2024 10/21/2024 Active Start: 08-01-2024 End: 08-02-2024 fluconazole (Diflucan) 150 M G tablet Indications: Vaginal itching Take 1 tablet (150 mg) by mouth See administration instructions for 1 day Take one tab now. Repeat in 7 days if symptoms persist. 2 tablet 08/01/2024 08/02/2024 Active folic acid 1 mg oral tablet (20 sources) Start: 07-17-2024 take 1 tablet by mouth once daily folic acid (Folvite) 1 MG tablet Take 1 mg by mouth Daily 07/17/2024 Active gabapentin 300 mg oral capsule (1 source) Anti-epileptic Agent Start: 02-15-2023 take 1 capsule by mouth once gabapentin (Neurontin) 300 MG capsule Indications: Chronic bilateral thoracic back pain Take 1 capsule (300 mg) by mouth every 12 (twelve) hours 60 capsule 0 02/15/2023 Active hydroCHLOROthiazide 12.5 mg / lisinopril 20 mg oral tablet (20 sources) Thiazide Diuretic, Angiotensin Converting Enzyme Inhibitor Start: 10-03-2019 End: 10-06-2024 lisinopril-hydroCH LOROthiazide 20-12.5 MG tablet Indications: Essential hypertension TAKE 1 TABLET DAILY 90 tablet 11 10/25/2023 Active levoFLOXacin 500 mg oral tablet (8 sources) Quinolone Antimicrobial Start: 10-13-2024 End: 10-27-2024 take 1 tablet by mouth once daily levoFLOXacin (Levaquin) 500 MG tablet Indications: Otorrhea of left ear Take 1 tablet (500 mg) by mouth Daily for 14 days 14 tablet 10/13/2024 10/27/2024 Active levothyroxine sodium 0.075 mg oral tablet (20 sources) l-Thyroxine Start: 05-23-2024 End: 05-27-2024 take 1 tablet by mouth once daily in the morning levothyroxine (Synthroid, Levoxyl) 75 MCG tablet Indications: Acquired hypothyroidism TAKE 1 TABLET BY MOUTH EVERY MORNING BEFORE FIRST MEAL OF THE DAY 30 tablet 11 05/27/2024 Active Start: 12-03-2023 take 1 tablet by ashvin th before mealtime levothyroxine (Synthroid) 75 MCG tablet Indications: Acquired hypothyroidism (CMS/HCC) Take 1 tablet (75 mcg) by mouth in the morning. Take before meals. 30 tablet 1 12/03/2023 Active Start: 10-03-2019 End: 03-13-2024 take 1 tablet by mouth once daily in the morning meclizine hydrochloride 25 m g chewable tablet (20 sources) Antiemetic Start: 05-25-2024 take 1 tablet by ashvin th once daily as needed Start: 05-15-2024 End: 05-15-2025 take 1 tablet by mouth three times daily as needed for dizziness meclizine (Antivert) 25 MG tablet Indications: Vertigo Take 1 tablet (25 mg) by mouth 3 (three) times a day as needed for dizziness 30 tablet 1 05/15/2024 05/15/2025 Active Start: 10-03-2019 End: 06-04-2023 take 1 tablet by mouth four times daily as needed Meclizine 25 mg tablet Discontinued 25 MG PO Four times daily as needed for Vertigo October 03, 2019 12:00am June 04, 2023 8:55am meloxicam 15 mg oral tablet (20 sources) Nonsteroidal Anti-inflammatory Drug Start: 08-29-2024 End: 09-19-2024 take 1 tablet by mouth once daily meloxicam (Mobic) 15 MG tablet Indications: Pigmented skin lesion of uncertain behavior of lower extremity , Cellulitis of right toe TAKE 1 TABLET(15 MG) BY MOUTH DAILY FOR 21 DAYS 21 tablet 09/19/2024 Active 24 hr nicotine 0.875 mg/hr transdermal system (20 sources) Cholinergic Nicotinic Agonist Start: 07-17-2024 End: 08-16-2024 apply 1 dose transdermal route every twenty-four hours nicotine (Nicoderm CQ) 21 MG/24HR patch Indications: Tobacco abuse Place 1 patch over 24 hours on the skin 1 (one) time each day at the same time 30 patch 07/17/2024 Active ofloxacin 3 mg/ml otic solution (7 sources) Quinolone Antimicrobial Start: 10-12-2024 End: 10-23-2024 ofloxacin (Floxin) 0.3 % otic solution Indications: Otalgia of both ears Administer 4 drops into affected ear(s) in the morning and 4 drops before bedtime. Do all this for 10 days. 5 mL 10/13/2024 10/23/2024 Active pantoprazole 40 mg delayed release oral tablet (20 sources) Proton Pump Inhibitor Start: 06-12-2024 End: 10-06-2024 take 1 tablet by mouth before mealtime pantoprazole (ProtoNix) 40 MG EC tablet Indications: Gastroesophageal reflux disease without esophagitis Take 1 tablet (40 mg) by mouth in the morning. Take before meals. 90 tablet 1 06/12/2024 Active Start: 01-22-2024 End: 02-18-2024 take 1 tablet by mouth once daily pantoprazole (ProtoNix) 40 MG EC tablet Indications: Gastroesophageal reflux disease without esophagitis Take 1 tablet (40 mg) by mouth Daily 90 tablet 11 02/18/2024 Active Start: 10-26-2023 End: 10-29-2023 take 1 tablet by mouth once daily pantoprazole (ProtoNix) 40 MG EC tablet Indications: Gastroesophageal reflux disease without esophagitis Take 1 tablet (40 mg) by mouth Daily 90 tablet 11 10/29/2023 Active Start: 04-30-2023 take 1 tablet by ashvin th once daily pantoprazole (ProtoNix) 40 MG EC tablet Indications: Gastroesophageal reflux disease without esophagitis Take 1 tablet (40 mg) by mouth Daily for 10 days Do not crush, chew, or split. 10 tablet 04/30/2023 Active Start: 11-03-2022 pantoprazole ( ProtoNix) 40 MG EC tablet Indications: Gastroesophageal reflux disease without esophagitis TAKE 1 TABLET DAILY 90 tablet 3 11/03/2022 Active Start: 10-03-2019 End: 09-12-2024 take 1 tablet by mouth once daily Pantoprazole 20 mg tablet,delayed release (DR/EC) Discontinued 20 MG PO Daily October 03, 2019 12:00am September 12, 2024 11:37am PARoxetine hydrochloride 20 mg oral tablet (20 sources) Serotonin Reuptake Inhibitor Start: 05-17-2024 End: 07-03-2025 PARoxetine (Paxil) 20 MG tablet Every morning 05/17/2024 Active Start: 06-04-2023 End: 05-16-2024 take 1 tablet by mouth once daily Paroxetine Hcl 10 mg tablet Discontinued 10 MG PO Daily June 04, 2023 12:00am May 16, 2024 9:33am Start: 04-05-2023 End: 2023 take 1 tablet by mouth once daily in the morning PARoxetine (Paxil) 10 MG tablet Indications: Anxiety TAKE 1 TABLET BY MOUTH EVERY MORNING 90 tablet 2023 Active predniSONE 20 mg oral tablet (19 sources) Start: 12-27-2023 End: 01-01-2024 take 1 tablet by mouth in the morning predniSONE (Deltasone) 20 MG tablet Indications: Pneumonia of left upper lobe due to Mycoplasma pneumoniae Take 1 tablet (20 mg) by mouth in the morning and 1 tablet (20 mg) before bedtime. Do all this for 5 days. 10 tablet 12/27/2023 01/01/2024 Active End: 08-01-2024 take 3 tablets by mouth once daily predniSONE (Deltasone) 5 MG tablet Take 3 tablets by mouth Daily 08/01/2024 Discontinued pregabalin 150 mg oral capsule (20 sources) Start: 03-31-2024 End: 10-16-2024 take 1 capsule by mouth in the morning pregabalin (Lyrica) 150 MG capsule Take 150 mg by mouth in the morning and 150 mg before bedtime. 06/07/2024 10/16/2024 Discontinued (Med list cleanup) Start: 10-04-2023 End: 06-23-2024 take 1 capsule by mouth twice daily Pregabalin 100 mg capsule Discontinued 100 MG PO Twice daily 60 March 03, 2024 10:19am March 31, 2024 10:58am Start: 09-10-2023 End: 10-04-2023 take 1 capsule by mouth twice daily Pregabalin (Lyrica) 75 mg capsule Discontinued 75 MG PO Twice daily 60 September 10, 2023 12:00am October 04, 2023 2:12pm Tirzepatide (Mounjaro) 2.5 MG/0.5ML solution auto-injector (20 sources) Start: 01-22-2024 inject 2.5 mg by subcutaneous injection every week Tirzepatide (Mounjaro) 2.5 MG/0.5ML solution auto-injector Indications: Type 2 diabetes mellitus with hyperosmolarity without coma, without long-term current use of insulin (CMS/HCC) Inject 2.5 mg under the skin 1 (one) time per week 2 mL 11 01/22/2024 Active Start: 01-03-2024 End: 01-21-2024 inject 2.5 mg by subcutaneous injection every week Tirzepatide (Mounjaro) 2.5 MG/0.5ML solution auto-injector Indications: Type 2 diabetes mellitus with hyperosmolarity without coma, without long-term current use of insulin (CMS/HCC) Inject 2.5 mg under the skin 1 (one) time per week 2 mL 01/03/2024 01/21/2024 Discontinued (Reorder) Start: 12-07-2023 inject 2.5 mg by sub cutaneous injection every week Tirzepatide (Mounjaro) 2.5 MG/0.5ML solution auto-injector Indications: Type 2 diabetes mellitus with hyperosmolarity without coma, without long-term current use of insulin (CMS/HCC) Inject 2.5 mg under the skin 1 (one) time per week 2 mL 12/07/2023 Active Start: 12-02-2023 End: 12-07-2023 inject 2.5 mg by subcutaneous injection every week Tirzepatide (Mounjaro) 2.5 MG/0.5ML solution auto-injector Indications: Morbid (severe) obesity due to excess calories (CMS/HCC) Inject 2.5 mg under the skin 1 (one) time per week 2 mL 12/02/2023 12/07/2023 Discontinued (Reorder) Start: 12-02-2023 inject 2.5 mg by sub cutaneous injection every week Tirzepatide (Mounjaro) 2.5 MG/0.5ML solution auto-injector Indications: Morbid (severe) obesity due to excess calories (CMS/HCC) Inject 2.5 mg under the skin 1 (one) time per week 2 mL 12/02/2023 Active Tirzepatide 10 MG/0.5ML solu tion auto-injector (20 sources) Start: 10-16-2024 Tirzepatide 10 MG/0.5ML solution auto-injector Indications: Type 2 diabetes mellitus with other specified complication, without long-term current use of insulin (HCC) Inject 10 mcg under the skin every 7 (seven) days 3 mL 1 10/16/2024 Active Start: 08-28-2024 End: 10-16-2024 Tirzepatide 10 MG/0.5ML solu tion auto-injector Indications: Type 2 diabetes mellitus with other specified complication, without long-term current use of insulin (HCC) Inject 10 mcg under the skin every 7 (seven) days 3 mL 1 08/28/2024 10/16/2024 Discontinued (Reorder) Start: 08-28-2024 Tirzepatide 10 MG/0.5ML solution auto-injector Indications: Type 2 diabetes mellitus with other specified complication, without long-term current use of insulin (HCC) Inject 10 mcg under the skin every 7 (seven) days 3 mL 1 08/28/2024 Active Start: 07-31-2024 Tirzepatide 10 MG/0.5ML solution auto-injector Indications: Type 2 diabetes mellitus with other specified complication, without long-term current use of insulin (HCC) Inject 10 mcg under the skin every 7 (seven) days 3 mL 1 07/31/2024 Active Start: 07-31-2024 Tirzepatide 10 MG/0.5ML solution auto-injector Indications: Type 2 diabetes mellitus with other specified complication, without long-term current use of insulin Inject 10 mcg under the skin every 7 (seven) days 3 mL 1 07/31/2024 Active tiZANidine 4 mg oral tablet (20 sources) Central alpha-2 Adrenergic Agonist Start: 07-26-2024 End: 09-12-2024 take 1 tablet by mouth twice daily as needed for muscle spasms Tizanidine 4 mg tablet Discontinued 0 .ROUTE .COMPLEX 60 July 31, 2024 1:08pm September 12, 2024 11:37am TAKE 1 TABLET BY MOUTH TWICE DAILY NEEDED FOR MUSCLE SPASMS Start: 06-26-2024 End: 07-26-2024 take 1 tablet by mouth twice daily as needed for muscle spasms tiZANidine (Zanaflex) 4 MG tablet Take 4 mg by mouth 2 (two) times a day as needed for muscle spasms 06/26/2024 Active Start: 08-06-2023 End: 05-17-2024 take 0.5-1 tablets by mouth twice daily as needed Tizanidine 4 mg tablet Discontinued 0 PO Twice daily as needed for muscle spasticity 60 30 August 06, 2023 12:00am May 17, 2024 2:02pm 1/2-1 tablet orally twice daily PRN; topiramate 50 mg oral tablet (20 sources) Start: 06-04-2023 take 1 tablet by mouth in the morning topiramate 50 MG tablet Indications: Migraine aura occurring with and without headache Take 1 tablet by mouth in the morning and 1 tablet before bedtime. 180 tablet 08/16/2023 Active Start: 06-04-2023 take 1 capsule by mo ut twice daily Start: 06-04-2023 take 1 capsule by mo uth twice daily Topiramate 50 mg capsule,extended release 24hr Active 50 MG PO Twice daily June 04, 2023 12:00am Start: 06-04-2023 take 1 capsule by mo ut twice daily Topiramate 50 mg capsule,extended release 24hr Active 50 MG PO Twice daily June 03, 2023 11:00pm Start: 08-13-2022 topiramate 50 MG tablet Indications: Migraine aura occurring with and without headache (CMS/HCC) TAKE 1 TABLET TWICE A DAY 180 tablet 3 08/13/2022 Active Start: 10-03-2019 End: 06-04-2023 Topiramate 25 mg tablet Disc ontinued 25 MG PO As Directed as needed for severe headache October 03, 2019 12:00am June 04, 2023 8:55am traZODone hydrochloride 50 mg oral tablet (20 sources) Serotonin Reuptake Inhibitor Start: 07-04-2024 End: 08-14-2027 take 1 tablet by mouth at bedtime traZODone (Desyrel) 50 MG tablet Indications: Primary insomnia Take 1 tablet (50 mg) by mouth at bedtime 90 tablet 11 08/29/2024 08/14/2027 Active valACYclovir 500 mg oral tablet (8 sources) Herpesvirus Nucleoside Analog DNA Polymerase Inhibitor, Herpes Simplex Virus Nucleoside Analog DNA Polymerase Inhibitor, Herpes Zoster Virus Nucleoside Analog DNA Polymerase Inhibitor Start: 10-06-2024 valACYclovir (Valtrex) 500 MG tablet Three times daily 10/06/2024 Active Start: 10-06-2024 take 2 tablets by mouth three times daily zolpidem tartrate 10 mg oral tablet (20 sources) gamma-Aminobutyric Acid-ergic Agonist Start: 01-22-2024 End: 01-29-2024 zolpidem (Ambien) 10 MG tablet Indications: Insomnia, unspecified type Take 1 tablet (10 mg) by mouth as needed at bedtime for sleep for up to 7 days 7 tablet 01/22/2024 Active Start: 09-14-2023 End: 12-13-2023 zolpidem (Ambien) 10 MG tabl et 10/19/2023 Active Start: 10-03-2019 End: 08-06-2023 take 1 tablet by mouth once daily at bedtime Zolpidem 10 mg tablet Discontinued 10 MG PO Daily at bedtime October 03, 2019 12:00am August 06, 2023 9:27am Completed/Discontinued Medications Medication Drug Class(es) Dates Sig (Normalized) Sig (Original) acetaminophen 500 mg oral tablet (20 sources) Start: 10-03-2019 End: 05-17-2024 take 2 tablets by mouth every six hours as needed for pain Acetaminophen (Tylenol Extra Strength) 500 mg Tablet Discontinued 1000 MG PO Q6H as needed for Pain October 03, 2019 12:00am May 17, 2024 2:03pm take 1 tablet by ashvin th every four hours as needed acetaminophen (Tylenol) 325 MG tablet Ta ke 325 mg by mouth every 4 (four) hours if needed. 0 Active baclofen 10 mg oral tablet (20 sources) gamma-Aminobutyric Acid-ergic Agonist Start: 02-08-2023 End: 10-19-2023 take 1 tablet by mouth three times daily Baclofen 10 mg tablet Discontinued 10 MG PO Three times daily June 04, 2023 12:00am August 06, 2023 9:27am celecoxib 200 mg oral capsule (13 sources) Nonsteroidal Anti-inflammatory Drug Start: 08-01-2024 End: 09-12-2024 take 1 capsule by mouth once daily Celecoxib 200 mg capsule Discontinued 0 .ROUTE .COMPLEX 90 August 01, 2024 3:18pm September 12, 2024 11:28am TAKE 1 CAPSULE BY MOUTH DAILY Start: 08-01-2024 End: 08-01-2024 take 1 capsule by mouth once daily Celecoxib (Celebrex) 200 mg capsule Discontinued 200 MG PO Daily August 01, 2024 12:00am August 01, 2024 3:19pm cyclobenzaprine hydrochloride 10 mg oral tablet (20 sources) Muscle Relaxant Start: 06-04-2023 End: 08-06-2023 take 1 tablet by mouth three times daily Cyclobenzaprine 10 mg tablet Discontinued 10 MG PO Three times daily June 04, 2023 12:00am August 06, 2023 9:27am furosemide 20 mg oral tablet (20 sources) Loop Diuretic Start: 01-27-2023 End: 11-05-2023 take 1 tablet by mouth once daily Furosemide 20 mg tablet Discontinued 20 MG PO Daily June 04, 2023 12:00am October 20, 2023 8:24am ibuprofen 400 mg oral tablet (20 sources) Nonsteroidal Anti-inflammatory Drug Start: 10-03-2019 End: 06-04-2023 Ibuprofen 400 mg Tablet Discontinued 400 MG PO Q8H as needed for Pain October 03, 2019 12:00am June 04, 2023 8:54am aware to stop 5-7 days prior to surgery LORazepam 1 mg oral tablet (20 sources) Benzodiazepine Start: 10-21-2023 End: 12-02-2023 take 1 tablet by mouth every twenty-four hours as needed LORazepam (Ativan) 1 MG tablet Take 1 mg by mouth Daily as needed 10/21/2023 12/02/2023 Discontinued (Therapy completed) Start: 04-16-2023 End: 10-19-2023 take 1 tablet by mouth once daily as needed Lorazepam (Ativan) 1 mg tablet Discontinued 1 MG PO Daily as needed June 04, 2023 12:00am August 06, 2023 9:14am metFORMIN hydrochloride 500 mg oral tablet (20 sources) Biguanide Start: 12-02-2023 End: 05-16-2024 take 1 tablet by mouth twice daily Metformin 500 mg tablet Discontinued 500 MG PO Twice daily December 08, 2023 12:00am May 16, 2024 9:33am methotrexate 2.5 mg oral tablet (20 sources) Folate Analog Metabolic Inhibitor Start: 07-21-2024 take 2 tablets by mouth three times weekly Start: 07-21-2024 take 1 tablet by ashvin th every week Methotrexate Sodium 2.5 mg tablet Active 2.5 MG PO every week July 21, 2024 12:00am Complies with drug therapy Start: 07-17-2024 methotrexate 2 .5 MG tablet Take 15 mg by mouth 1 (one) time per week. 07/17/2024 Active 1 ml methylPREDNISolone acetate 40 mg/ml injection (8 sources) Corticosteroid Start: 11-19-2023 End: 11-19-2023 methylPREDNISolone acetate (DEPO-Medrol) injection 40 mg Start: 11-19-2023 End: 11-19-2023 40 mg, Intra-articular, Once PRN Procedure, Starting on Wed11/19/23 at 0937, For 1 dose Start: 11-05-2023 End: 11-05-2023 methylPREDNISolone acetate ( DEPO-Medrol) injection 40 mg Start: 11-05-2023 End: 11-05-2023 40 mg, Intra-articular, Once PRN Procedure, Starting on Wed11/05/23 at 1242, For 1 dose Tirzepatide (17 sources) Start: 12-24-2023 End: 09-12-2024 Tirzepatide (Mounjaro) 2.5 m g/0.5 mL pen injector Discontinued 2.5 MG SUBCUT every week December 24, 2023 12:00am September 12, 2024 11:37am for 4 weeks Start: 12-24-2023 Tirzepatide (M ounjaro) 2.5 mg/0.5 mL pen injector Active 2.5 MG SUBCUT every week December 24, 2023 12:00am for 4 weeks Complies with drug therapy Start: 12-24-2023 Tirzepatide (M ounjaro) 2.5 mg/0.5 mL pen injector Active 2.5 MG SUBCUT every week December 24, 2023 12:00am for 4 weeks Start: 12-24-2023 Tirzepatide (M ounjaro) 2.5 mg/0.5 mL pen injector Active 2.5 MG SUBCUT every week December 23, 2023 11:00pm for 4 weeks Tirzepatide (4 sources) Start: 09-12-2024 Start: 09-12-2024 Tirzepatide (M ounjaro) 10 mg/0.5 mL pen injector Active 10 MG SUBCUT every week September 12, 2024 12:00am q wednesday Complies with drug therapy Start: 09-12-2024 Tirzepatide (Mounjaro) 5 MG/0.5ML solution auto-injector (20 sources) Start: 02-08-2024 End: 07-17-2024 inject 5 mg by subcutaneous injection every week Tirzepatide (Mounjaro) 5 MG/0.5ML solution auto-injector Indications: Morbid (severe) obesity due to excess calories (CMS/HCC) Inject 5 mg under the skin 1 (one) time per week 2 mL 3 02/08/2024 07/17/2024 Discontinued (Med list cleanup) Start: 02-08-2024 inject 5 mg by subcu taneous injection every week Tirzepatide (Mounjaro) 5 MG/0.5ML solution auto-injector Indications: Morbid (severe) obesity due to excess calories (CMS/HCC) Inject 5 mg under the skin 1 (one) time per week 2 mL 3 02/08/2024 Active Start: 12-02-2023 inject 5 mg by subcu taneous injection every week Tirzepatide (Mounjaro) 5 MG/0.5ML solution auto-injector Indications: Morbid (severe) obesity due to excess calories (CMS/HCC) Inject 5 mg under the skin 1 (one) time per week 2 mL 12/02/2023 Active Tirzepatide (Mounjaro) 7.5 MG/0.5ML solution auto-injector (16 sources) Start: 07-03-2024 End: 07-31-2024 Tirzepatide (Mounjaro) 7.5 MG/0.5ML solution auto-injector Indications: Type 2 diabetes mellitus with other specified complication, without long-term current use of insulin Inject 7.5 mg under the skin every 7 (seven) days 3 mL 11 07/03/2024 07/31/2024 Discontinued Start: 07-03-2024 Tirzepatide (M ounjaro) 7.5 MG/0.5ML solution auto-injector Indications: Type 2 diabetes mellitus with other specified complication, without long-term current use of insulin Inject 7.5 mg under the skin every 7 (seven) days 3 mL 11 07/03/2024 Active Start: 06-23-2024 End: 07-03-2024 Tirzepatide (Mounjaro) 7.5 M G/0.5ML solution auto-injector Indications: Type 2 diabetes mellitus with other specified complication, without long-term current use of insulin Inject 7.5 mg under the skin every 7 (seven) days 3 mL 1 06/23/2024 07/03/2024 Discontinued (Reorder) Start: 06-23-2024 Tirzepatide (M ounjaro) 7.5 MG/0.5ML solution auto-injector Indications: Type 2 diabetes mellitus with other specified complication, without long-term current use of insulin Inject 7.5 mg under the skin every 7 (seven) days 3 mL 1 06/23/2024 Active 1 ml triamcinolone acetonide 40 mg/ml prefilled syringe (4 sources) Corticosteroid Start: 12-31-2023 End: 12-31-2023 triamcinolone acetonide (Kenalog-40) injection 40 mg Start: 12-31-2023 End: 12-31-2023 40 mg, Intra-articular, Once , On Wed12/31/23 at 0930, For 1 dose Start: 12-31-2023 End: 12-31-2023 triamcinolone acetonide (Lul alog-40) injection 40 mg Start: 12-31-2023 End: 12-31-2023 40 mg, Intra-articular, Once , On Wed12/31/23 at 0930, For 1 dose Problems Active Problems Problem Classification Problem Date Documented Date Episodic/Chronic Acute myocardial infarction (5 sources) Myocardial infarction; Translations: [Non-ST elevation (NSTEMI) myocardial infarction] Onset: 10-16-2024 09-28-2024 Chronic Administrative/social admission (6 sources) Other reduced mobility; Translations: [Impaired mobility and activities of daily living] Onset: 09-28-2024 10-02-2024 Episodic Anxiety disorders (20 sources) Anxiety; Translations: [Anxiety disorder, unspecified] Onset: 05-10-2015 2023 Chronic Chronic obstructive pulmonary disease and bronchiectasis (20 sources) Chronic obstructive lung disease; Translations: [Chronic obstructive pulmonary disease, unspecified] Onset: 12-19-2020 Resolved: 06-23-2024 09-14-2022 Chronic Coagulation and hemorrhagic disorders (20 sources) Platelet count below reference range; Translations: [Thrombocytopenia, unspecified] Onset: 09-14-2022 09-14-2022 Chronic Coronary atherosclerosis and other heart disease (8 sources) Myocardial ischemia; Translations: [Demand ischemia of myocardium] Onset: 09-28-2024 09-28-2024 Chronic Diabetes mellitus with complications (20 sources) Type 2 diabetes mellitus; Translations: [Type 2 diabetes mellitus with hyperosmolarity without nonketotic hyperglycemic-hyperosm olar coma ([facility])] Onset: 06-23-2024 12-07-2023 Chronic Diabetes mellitus without complication (2 sources) Impaired fasting glycemia; Translations: [Impaired fasting glucose] 12-02-2023 Episodic Diseases of mouth; excluding dental (7 sources) Mass of parotid gland; Translations: [Other diseases of salivary glands] Onset: 09-20-2024 09-11-2024 Episodic Disorders of lipid metabolism (20 sources) Mixed hyperlipidemia; Translations: [Mixed hyperlipidemia] Onset: 05-10-2015 09-14-2022 Chronic Esophageal disorders (20 sources) Gastroesophageal reflux disease; Translations: [Gastro-esophageal reflux disease without esophagitis] Onset: 09-16-2016 09-14-2022 Chronic Essential hypertension (20 sources) Essential hypertension; Translations: [Essential (primary) hypertension] Onset: 05-10-2015 09-14-2022 Chronic Fluid and electrolyte disorders (7 sources) Acute hyponatremia; Translations: [Hypo-osmolality and hyponatremia] Onset: 10-16-2024 09-28-2024 Episodic Genitourinary symptoms and ill-defined conditions (4 sources) Dysuria; Translations: [Dysuria] 08-01-2024 Episodic Headache; including migraine (20 sources) Migraine without aura; Translations: [Migraine without aura, not intractable, without status migrainosus] Onset: 01-29-2017 09-14-2022 Chronic Inflammation; infection of eye (except that caused by tuberculosis or sexually transmitteddisease) (12 sources) Herpes zoster conjunctivitis; Translations: [Zoster conjunctivitis] Onset: 09-28-2024 10-05-2024 Episodic Miscellaneous mental health disorders (3 sources) Primary insomnia; Translations: [Primary insomnia] 07-04-2024 Chronic Mood disorders (20 sources) Bipolar affective disorder, currently depressed, moderate; Translations: [Bipolar disorder, current episode depressed, moderate] Onset: 12-15-2018 Resolved: 04-21-2023 09-14-2022 Chronic Mycoses (1 source) Candidiasis; Translations: [Candidiasis, unspecified] 10-20-2024 Episodic Nausea and vomiting (2 sources) Nausea and vomiting; Translations: [Nausea with vomiting, unspecified] 07-04-2024 Episodic Neoplasms of unspecified nature or uncertain behavior (4 sources) Neoplasm of uncertain behavior of skin; Translations: [Neoplasm of uncertain behavior of skin] 08-24-2024 Episodic Nutritional deficiencies (20 sources) Vitamin D deficiency; Translations: [Vitamin D deficiency, unspecified] Onset: 09-14-2022 09-14-2022 Chronic Open wounds of extremities (6 sources) Open wound of foot, excluding toe(s); Translations: [Unspecified open wound, right foot, initial encounter] 08-15-2024 Episodic Osteoarthritis (20 sources) Primary coxarthrosis, bilateral; Translations: [Bilateral primary osteoarthritis of hip] Onset: 08-26-2023 07-09-2023 Chronic Other aftercare (2 sources) Post-discharge follow-up; Translations: [Encounter for follow-up examination after completed treatment for conditions other than malignant neoplasm] 10-16-2024 Episodic Other and unspecified benign neoplasm (2 sources) Hemangioma of skin; Translations: [Hemangioma of skin and subcutaneous tissue] 09-12-2024 Episodic Other connective tissue disease (20 sources) Fibromyalgia; Translations: [Myalgia and myositis, unspecified] Onset: 09-28-2024 08-06-2023 Episodic Other connective tissue disease (13 sources) Pain in upper limb; Translations: [Pain in arm, unspecified] 04-27-2024 Episodic Other connective tissue disease (5 sources) Pain in arm, unspecified; Translations: [Pain in limb] 04-27-2024 Episodic Other connective tissue disease (4 sources) Hand pain; Translations: [Pain in left hand] 08-01-2024 Episodic Other connective tissue disease (3 sources) Pain in right hand; Translations: [Pain in limb] Onset: 09-28-2024 08-01-2024 Episodic Other connective tissue disease (5 sources) Pain of left hand; Translations: [Pain in left hand] 08-01-2024 Episodic Other connective tissue disease (14 sources) Pain of bilateral hands; Translations: [Pain in right hand] Onset: 10-16-2024 08-01-2024 Episodic Other connective tissue disease (4 sources) Pain in hallux; Translations: [Pain in right toe(s)] 08-24-2024 Episodic Other connective tissue disease (1 source) Pain in left hand; Translations: [Pain in left hand] Onset: 09-28-2024 Episodic Other ear and sense organ disorders (20 sources) Conductive hearing loss, unilateral, right ear, with unrestricted hearing on the contralateral side; Translations: [Conductive hearing loss, unilateral] Onset: 05-31-2019 09-14-2022 Chronic Other ear and sense organ disorders (20 sources) Hearing loss; Translations: [Unspecified hearing loss, unspecified ear] Onset: 09-16-2016 12-01-2022 Chronic Other ear and sense organ disorders (20 sources) Mixed conductive and sensorineural hearing loss, bilateral; Translations: [Mixed conductive and sensorineural hearing loss, bilateral] Onset: 09-12-2018 12-01-2022 Chronic Other ear and sense organ disorders (20 sources) Sensorineural hearing loss, bilateral; Translations: [Sensorineural hearing loss, bilateral] Onset: 09-27-2018 12-01-2022 Chronic Other ear and sense organ disorders (2 sources) Otorrhea of left ear; Translations: [Otorrhea, left ear] 10-14-2024 Episodic Other female genital disorders (2 sources) Pruritus of vagina; Translations: [Other specified noninflammatory disorders of vagina] 08-01-2024 Episodic Other hematologic conditions (20 sources) Erythrocytosis; Translations: [Secondary polycythemia] Onset: 10-16-2024 04-24-2024 Episodic Other hereditary and degenerative nervous system conditions (20 sources) Restless legs; Translations: [Restless legs syndrome] Onset: 08-25-2018 12-01-2022 Chronic Other lower respiratory disease (5 sources) Hypoxia; Translations: [Hypoxemia] Onset: 10-16-2024 09-28-2024 Episodic Other nervous system disorders (20 sources) Chronic pain; Translations: [Other chronic pain] Onset: 03-21-2020 09-14-2022 Chronic Other nervous system disorders (20 sources) Other chronic pain; Translations: [Other chronic pain] Onset: 09-28-2024 06-04-2023 Chronic Other nervous system disorders (18 sources) Carpal tunnel syndrome of left wrist; Translations: [Carpal tunnel syndrome, left upper limb] 05-10-2024 Chronic Other nervous system disorders (2 sources) Bilateral carpal tunnel syndrome; Translations: [Carpal tunnel syndrome, bilateral upper limbs] 07-04-2024 Chronic Other nervous system disorders (2 sources) Carpal tunnel syndrome, left upper limb; Translations: [Carpal tunnel syndrome] 08-01-2024 Chronic Other nervous system disorders (6 sources) Postoperative pain ; Translations: [Other acute postprocedural pain] Onset: 10-16-2024 09-20-2024 Episodic Other nervous system disorders (1 source) Other acute postprocedural pain; Translations: [Other acute postprocedural pain] Onset: 09-20-2024 Episodic Other non-traumatic joint disorders (20 sources) Bone spur of vertebra; Translations: [Osteophyte, vertebrae] Onset: 09-14-2022 09-14-2022 Chronic Other non-traumatic joint disorders (20 sources) Hip pain; Translations: [Pain in unspecified hip] 06-04-2023 Episodic Other non-traumatic joint disorders (1 source) Pain in unspecified hip; Translations: [Pain in joint, pelvic region and thigh] 06-04-2023 Episodic Other non-traumatic joint disorders (4 sources) Joint pain; Translations: [Pain in unspecified joint] 10-19-2023 Episodic Other non-traumatic joint disorders (20 sources) Pain in left shoulder; Translations: [Left shoulder pain] Onset: 09-28-2024 03-03-2024 Episodic Other nutritional; endocrine; and metabolic disorders (20 sources) Obesity; Translations: [Obesity, unspecified] Onset: 09-16-2016 09-14-2022 Chronic Other nutritional; endocrine; and metabolic disorders (20 sources) Obesity caused by energy imbalance; Translations: [Morbid (severe) obesity due to excess calories] Onset: 09-16-2016 12-02-2023 Chronic Other nutritional; endocrine; and metabolic disorders (4 sources) Morbid obesity; Translations: [Morbid (severe) obesity due to excess calories] 09-28-2024 Chronic Other nutritional; endocrine; and metabolic disorders (1 source) Morbid (severe) obesity due to excess calories; Translations: [Morbid (severe) obesity due to excess calories] Onset: 09-28-2024 Chronic Other screening for suspected conditions (not mental disorders or infectious disease) (20 sources) Standard chest X-ray abnormal; Translations: [Abnormal findings on diagnostic imaging of other specified body structures] Onset: 12-02-2020 12-01-2022 Chronic Other screening for suspected conditions (not mental disorders or infectious disease) (7 sources) Patient encounter status; Translations: [Encounter for screening mammogram for malignant neoplasm of breast] Onset: 10-16-2024 12-02-2023 Episodic Other skin disorders (6 sources) Mass of neck; Translations: [Localized swelling, mass and lump, neck] 08-28-2024 Episodic Other skin disorders (2 sources) Epidermoid cyst of skin; Translations: [Epidermal cyst] 09-11-2024 Episodic Other upper respiratory disease (20 sources) Allergic rhinitis; Translations: [Allergic rhinitis, unspecified] Onset: 05-10-2015 09-14-2022 Chronic Other upper respiratory disease (2 sources) Chronic rhinitis; Translations: [Chronic rhinitis] 03-04-2024 Chronic Other upper respiratory infections (20 sources) Chronic sinusitis; Translations: [Chronic sinusitis, unspecified] Onset: 07-06-2016 12-01-2022 Chronic Otitis media and related conditions (20 sources) Chronic tubotympanic suppurative otitis media; Translations: [Chronic tubotympanic suppurative otitis media, unspecified] Onset: 09-13-2018 09-14-2022 Chronic Pneumonia (except that caused by tuberculosis or sexually transmitted disease) (12 sources) Mycoplasma pneumonia; Translations: [Pneumonia due to Mycoplasma pneumoniae] Onset: 09-28-2024 12-27-2023 Episodic Residual codes; unclassified (6 sources) Edema of lower leg ; Translations: [Localized edema] 12-02-2023 Episodic Residual codes; unclassified (1 source) Insomnia; Translations: [Insomnia, unspecified] 01-22-2024 Episodic Residual codes; unclassified (2 sources) Chronic pain 10-16-2024 Episodic Residual codes; unclassified (1 source) Acquired absence of other specified parts of digestive tract; Translations: [Acquired absence of other specified parts of digestive tract] Onset: 09-28-2024 Episodic Residual codes; unclassified (1 source) Other specified health status; Translations: [Other specified health status] Onset: 09-28-2024 Episodic Respiratory failure; insufficiency; arrest (adult) (7 sources) Acute hypoxemic respiratory failure; Translations: [Acute respiratory failure with hypoxia] Onset: 09-28-2024 09-28-2024 Episodic Screening and history of mental health and substance abuse codes (2 sources) Personal history of nicotine dependence; Translations: [Personal history of tobacco use] 12-02-2023 Episodic Septicemia (except in labor) (9 sources) Sepsis; Translations: [Sepsis, unspecified organism] Onset: 09-28-2024 09-28-2024 Episodic Skin and subcutaneous tissue infections (2 sources) Cellulitis of right toe; Translations: [Cellulitis and abscess of toe, unspecified] 08-29-2024 Episodic Spondylosis; intervertebral disc disorders; other back problems (20 sources) Degeneration of lumbar intervertebral disc; Translations: [Other intervertebral disc degeneration, lumbar region] Onset: 03-28-2019 09-14-2022 Chronic Substance-related disorders (20 sources) Tobacco dependence syndrome; Translations: [Nicotine dependence, unspecified, uncomplicated] Onset: 03-26-2016 09-14-2022 Chronic Thyroid disorders (20 sources) Acquired hypothyroidism; Translations: [Hypothyroidism, unspecified] Onset: 03-09-2016 09-14-2022 Chronic Unclassified (1 source) pre employment screening / pre employment screening() Onset: 01-31-2018 Unclassified (20 sources) Patient on antidepressant monitoring plan Onset: 01-15-2023 01-15-2023 Unclassified (20 sources) Baseline PHQ-9 Onset: 01-15-2023 01-15-2023 Unclassified (1 source) BH Diagnostic Assessment Onset: 08-13-2023 Unclassified (1 source) EAP Onset: 05-14-2023 Unclassified (2 sources) Please keep your appointment as scheduled. Past or Other Problems Problem Classification Problem Date Documented Da te Episodic/Chronic Adjustment disorders (20 sources) Adjustment disorder; Translations: [Adjustment disorder, unspecified] Onset: 03-08-2020 Resolved: 11-04-2023 09-14-2022 Chronic Alcohol-related disorders (20 sources) Nondependent alcohol abuse in remission; Translations: [Alcohol abuse, in remission] Onset: 03-08-2020 Resolved: 11-04-2023 09-14-2022 Chronic Diverticulosis and diverticulitis (20 sources) Diverticulosis of large intestine; Translations: [Diverticulosis of large intestine without perforation or abscess without bleeding] Onset: 12-13-2018 Resolved: 11-04-2023 09-14-2022 Chronic Lymphadenitis (20 sources) Cervical lymphadenopathy; Translations: [Localized enlarged lymph nodes] Onset: 06-23-2024 06-23-2024 Episodic Nonspecific chest pain (4 sources) Other chest pain; Translations: [OTHER CHEST PAIN] Onset: 01-09-2021 Episodic Other aftercare (20 sources) Taking high risk medication; Translations: [Other snf (current) drug therapy] Onset: 12-02-2023 Resolved: 06-23-2024 12-02-2023 Episodic Other and unspecified benign neoplasm (20 sources) Adenomatous polyp of colon ; Translations: [Benign neoplasm of colon, unspecified] Onset: 12-13-2018 09-14-2022 Episodic Other and unspecified benign neoplasm (20 sources) Hyperplastic polyp of large intestine; Translations: [Polyp of colon] Onset: 12-13-2018 09-14-2022 Episodic Other connective tissue disease (20 sources) Fibromyalgia; Translations: [Fibromyalgia] Onset: 04-28-2024 08-06-2023 Episodic Other connective tissue disease (1 source) Pain in right arm; Translations: [Pain in right arm] Onset: 05-10-2024 Episodic Other ear and sense organ disorders (20 sources) Bilateral tinnitus; Translations: [Tinnitus, bilateral] Onset: 09-12-2018 09-14-2022 Episodic Other ear and sense organ disorders (20 sources) Otorrhea of right ear; Translations: [Otorrhea, right ear] Onset: 09-13-2018 12-01-2022 Episodic Other gastrointestinal disorders (20 sources) Stool DNA-based colorectal cancer screening positive; Translations: [Other fecal abnormalities] Onset: 11-17-2018 09-14-2022 Episodic Other gastrointestinal disorders (20 sources) Constipation; Translations: [Constipation, unspecified] Onset: 11-17-2018 Resolved: 02-08-2023 02-08-2023 Episodic Other hematologic conditions (13 sources) Secondary polycythemia; Translations: [Polycythemia, secondary] Onset: 06-29-2024 05-17-2024 Episodic Other lower respiratory disease (1 source) Dyspnea, unspecified; Translations: [DYSPNEA UNSPECIFIED] Onset: 01-16-2021 Episodic Other nervous system disorders (20 sources) Carpal tunnel syndrome; Translations: [Carpal tunnel syndrome, unspecified upper limb] Onset: 04-24-2016 Resolved: 11-04-2023 09-14-2022 Chronic Other nervous system disorders (20 sources) H/O: ear disorder; Translations: [Personal history of other diseases of the nervous system and sense organs] Onset: 03-09-2016 12-01-2022 Episodic Other non-traumatic joint disorders (20 sources) Osteophyte of bone; Translations: [Osteophyte, unspecified joint] Onset: 03-28-2019 09-14-2022 Episodic Other non-traumatic joint disorders (20 sources) Hand joint pain; Translations: [Pain in joints of unspecified hand] Onset: 03-26-2016 Resolved: 12-01-2022 12-01-2022 Episodic Other non-traumatic joint disorders (20 sources) Pain in left knee; Translations: [Acute pain of left knee] Onset: 11-04-2023 10-12-2023 Episodic Other non-traumatic joint disorders (11 sources) Pain in right knee; Translations: [Pain in joint, lower leg] Onset: 03-20-2024 03-03-2024 Episodic Other nutritional; endocrine; and metabolic disorders (20 sources) Body mass index 40+ - severely obese; Translations: [Body mass index (BMI) 45.0-49.9, adult] Onset: 08-28-2024 Resolved: 08-28-2024 10-19-2023 Chronic Other upper respiratory disease (20 sources) Deviated nasal septum; Translations: [Deviated nasal septum] Onset: 09-21-2016 09-14-2022 Episodic Otitis media and related conditions (20 sources) Perforation of right tympanic membrane; Translations: [Unspecified perforation of tympanic membrane, right ear] Onset: 08-05-2016 12-01-2022 Episodic Residual codes; unclassified (20 sources) Obstructive sleep apnea syndrome; Translations: [Obstructive sleep apnea (adult) (pediatric)] Onset: 11-26-2020 Resolved: 06-23-2024 09-14-2022 Chronic Residual codes; unclassified (1 source) Tobacco use; Translations: [TOBACCO USE] Onset: 01-16-2021 Episodic Residual codes; unclassified (20 sources) Mixed insomnia; Translations: [Insomnia, unspecified] Onset: 08-25-2018 09-14-2022 Episodic Residual codes; unclassified (20 sources) Tobacco user; Translations: [Tobacco use] Onset: 03-08-2020 12-01-2022 Episodic Rheumatoid arthritis and related disease (20 sources) Inflammatory polyarthropathy; Translations: [Inflammatory polyarthropathy] Onset: 08-28-2024 Resolved: 08-28-2024 08-28-2024 Chronic Spondylosis; intervertebral disc disorders; other back problems (20 sources) Backache; Translations: [Dorsalgia, unspecified] Onset: 03-26-2016 Resolved: 12-01-2022 12-01-2022 Episodic Unclassified (1 source) pre employment screening; Translations: [pre employment screening] Onset: 01-31-2018 Viral infection (20 sources) Postherpetic neuralgia; Translations: [Other postherpetic nervous system involvement] Onset: 07-20-2016 12-01-2022 Episodic Results Test Name Value Interpretation Reference Range Facility Comprehensive Metabolic Pane [facility] 10-06-2024 Albumin [Mass/Vol] 2.9 g/dL Low 3.5-5.7 [facility] Comment on above: Performed By: #### G LULS #### Point of Care testing , Albumin/Globulin [Mass ratio] 1.2 {ratio} Normal [facility] Comment on above: Performed By: #### G LULS #### Point of Care testing , ALP [Catalytic activity/Vol] 54 U/L Normal 34-104 [facility] Comment on above: Performed By: #### G LULS #### Point of Care testing , ALT [Catalytic activity/Vol] 45 U/L Normal 7-52 [facility] Comment on above: Performed By: #### G LULS #### Point of Care testing , Anion gap [Moles/Vol] Not performed Normal 6.0-15.0 [facility] Comment on above: Performed By: #### G LULS #### Point of Care testing , Aspartate Amino Transferase Normal 13-39 [facility] Comment on above: Result Comment: Spec imen hemolyzed, redraw requested Performed By: #### G LULS #### Point of Care testing , Bilirubin [Mass/Vol] 0.4 mg/dL Normal 0.3-1.0 [facility] Comment on above: Performed By: #### G LULS #### Point of Care testing , Calcium [Mass/Vol] 8.8 mg/dL Normal 8.6-10.3 [facility] Comment on above: Performed By: #### G LULS #### Point of Care testing , Chloride [Moles/Vol] 109 mmol/L High 98-107 [facility] Comment on above: Performed By: #### G LULS #### Point of Care testing , CO2 [Moles/Vol] 25.7 mmol/L Normal 21.0-31.0 [facility] Comment on above: Performed By: #### G LULS #### Point of Care testing , Creatinine [Mass/Vol] 0.54 mg/dL Low 0.60-1.20 [facility] Comment on above: Performed By: #### G LULS #### Point of Care testing , Creatinine Clr Calc Pharmacy 122.65 Normal [facility] Comment on above: Performed By: #### G LULS #### Point of Care testing , GFR/1.73 sq M.predicted MDRD (S/P/Bld) [Vol rate/Area] mL/min/{1.73_m2} Normal [facility] Comment on above: Performed By: #### G LULS #### Point of Care testing , Globulin (S) [Mass/Vol] 2.5 g/dL Normal [facility] Comment on above: Performed By: #### G LULS #### Point of Care testing , Glucose [Mass/Vol] 83 mg/dL Normal 70-100 [facility] Comment on above: Result Comment: [place] Glucose Reference Range is dependent on time and content of last meal. Glucose of more than 200 mg/dL in a nonstressed, ambulatory subject supports the diagnosis of Diabetes Mellitus. ADA recommended reference range Performed By: #### G LULS #### Point of Care testing , Potassium Normal 3.5-5.1 [facility] Comment on above: Result Comment: Spec imen hemolyzed, redraw requested Performed By: #### G LULS #### Point of Care testing , Protein [Mass/Vol] 5.4 g/dL Low 6.4-8.9 [facility] Comment on above: Performed By: #### G LULS #### Point of Care testing , Sodium [Moles/Vol] 141 mmol/L Normal 136-145 [facility] Comment on above: Performed By: #### G LULS #### Point of Care testing , Urea nitrogen [Mass/Vol] 11 mg/dL Normal 7-25 [facility] Comment on above: Performed By: #### G LULS #### Point of Care testing , Diff and CBCon 10-06-2024 Anisocytosis Ql (Bld) Slight Normal [facility] Comment on above: Performed By: #### C MP, LIPASE #### [address] Erythrocyte distribution width (RBC) [Ratio] 17.2 % High 11.9-15.3 [facility] Comment on above: Performed By: #### C MP, LIPASE #### [address] Hematocrit (Bld) [Volume fraction] 38.6 % Normal 34.0-46.4 [facility] Comment on above: Performed By: #### C MP, LIPASE #### [facility] [address] [id number] [facility] Hemoglobin (Bld) [Mass/Vol] 12.7 g/dL Normal 11.8-15.4 [facility] Comment on above: Performed By: #### C MP, LIPASE #### [facility] [address] [id number] [place] Lymphocytes/100 WBC (Bld) 26 % Normal 18-42 [facility] Comment on above: Performed By: #### C MP, LIPASE #### [address] MCH (RBC) [Entitic mass] 32.6 pg Normal 24.7-34.3 [facility] Comment on above: Performed By: #### C MP, LIPASE #### [address] MCV (RBC) [Entitic vol] 99.3 fL Normal 80-100 [facility] Comment on above: Performed By: #### C MP, LIPASE #### [address] Mean Corpuscular HGB Conc 32.8 g/dL Normal 32.0-35.0 [facility] Comment on above: Performed By: #### C MP, LIPASE #### [address] Metamyelocytes 1 % High 0-0 [facility] Comment on above: Performed By: #### C MP, LIPASE #### [address] Microcytosis Slight Normal [facility] Comment on above: Performed By: #### C MP, LIPASE #### [address] Monocytes/100 WBC (Bld) 2 % Normal 2-11 [facility] Comment on above: Performed By: #### C MP, LIPASE #### [address] Ovalocytes Slight Normal [facility] Comment on above: Performed By: #### C MP, LIPASE #### [address] Platelet Estimate Normal Normal Normal [facility] Comment on above: Performed By: #### C MP, LIPASE #### [address] Platelet mean volume (Bld) [Entitic vol] 8.8 fL Normal 6.3-10.7 [facility] Comment on above: Performed By: #### C MP, LIPASE #### [address] Platelet Morphology Normal Normal Normal [facility] Comment on above: Result Comment: PERF ORMED BY: [place] [address] PATHOLOGIST PUBLIC RELATIONS COUNSELOR CHRISTOPHER PEDROZA M.D. Performed By: #### C MP, LIPASE #### [address] Platelets (Bld) [#/Vol] 252 10*3/uL Normal 150-450 [facility] Comment on above: Performed By: #### C MP, LIPASE #### [address] Poikilocytosis Slight Normal [facility] Comment on above: Performed By: #### C MP, LIPASE #### [address] Polychromasia Slight Normal [facility] Comment on above: Performed By: #### C MP, LIPASE #### [address] RBC (Bld) [#/Vol] 3.89 10*6/uL Normal 3.60-5.00 [facility] Comment on above: Performed By: #### C MP, LIPASE #### [address] Segmented neutrophils/100 WBC (Bld) 71 % High 50-70 [facility] Comment on above: Performed By: #### C MP, LIPASE #### [address] WBC (Bld) [#/Vol] 9.9 10*3/uL Normal 3.8-11.6 [facility] Comment on above: Performed By: #### C MP, LIPASE #### [address] White Blood Count 9.9 [CFU]/mL Normal 3.8-11.6 [facility] Comment on above: Performed By: #### C MP, LIPASE #### [address] Glucose Poct Glucometerson 0 10-06-2024 Glucose [Mass/Vol] 128 mg/dL Normal [facility] Comment on above: Result Comment: [place] om Glucose Reference Range is dependent on time and content of last meal. Glucose of more than 200 mg/dL in a nonstressed, ambulatory subject supports the diagnosis of Diabetes Mellitus. PERFORMED BY: [place] [address] PATHOLOGIST PUBLIC RELATIONS COUNSELOR CHRISTOPHER PEDROZA M.D. Performed By: #### H S TROP, CMP, LACTIC, CBC, MG #### [address] Glucose [Mass/Vol] 91 mg/dL Normal [facility] Comment on above: Result Comment: [place] om Glucose Reference Range is dependent on time and content of last meal. Glucose of more than 200 mg/dL in a nonstressed, ambulatory subject supports the diagnosis of Diabetes Mellitus. PERFORMED BY: [place] [address] PATHOLOGIST PUBLIC RELATIONS COUNSELOR CHRISTOPHER PEDROZA M.D. Performed By: #### H S TROP, CMP, LACTIC, CBC, MG #### [address] Magnesiumon 10-06-2024 Magnesium Normal 1.9-2.7 [facility] Comment on above: Result Comment: Spec imen hemolyzed, redraw requested PERFORMED BY: [place] [address] PATHOLOGIST PUBLIC RELATIONS COUNSELOR CHRISTOPHER PEDROZA M.D. Performed By: #### G LULS #### Point of Care testing , Redraw Hilary 10-06-2024 AST [Catalytic activity/Vol] 16 U/L Normal 13-39 [facility] Comment on above: Result Comment: PERF ORMED BY: [place] [address] PATHOLOGIST PUBLIC RELATIONS COUNSELOR CHRISTOPHER PEDROZA M.D. Performed By: #### H S TROP, CMP, LACTIC, CBC, MG #### [facility] [address] Redraw Magnesiumon 5 Magnesium [Mass/Vol] 2.0 mg/dL Normal 1.9-2.7 [facility] Comment on above: Performed By: #### H S TROP, CMP, LACTIC, CBC, MG #### [facility] [address] [place] [address] Redraw Potassiumon 5 Potassium [Moles/Vol] 4.0 mmol/L Normal 3.5-5.1 [facility] Comment on above: Performed By: #### H S TROP, CMP, LACTIC, CBC, MG #### [address] Comprehensive Metabolic Pane [place] 10-05-2024 Albumin [Mass/Vol] 2.8 g/dL Low 3.5-5.7 [facility] Comment on above: Performed By: #### G LULS #### Point of Care testing , Albumin/Globulin [Mass ratio] 1.3 {ratio} Normal [facility] Comment on above: Performed By: #### G MAYURILS #### Point of Care testing , ALP [Catalytic activity/Vol] 52 U/L Normal 34-104 [facility] Comment on above: Performed By: #### G LULS #### Point of Care testing , ALT [Catalytic activity/Vol] 54 U/L High 7-52 [facility] Comment on above: Performed By: #### G LULS #### Point of Care testing , Anion gap [Moles/Vol] 10.6 mmol/L Normal 6.0-15.0 [facility] Comment on above: Performed By: #### G LULS #### Point of Care testing , AST [Catalytic activity/Vol] 22 U/L Normal 13-39 [facility] Comment on above: Performed By: #### G LULS #### Point of Care testing , Bilirubin [Mass/Vol] 0.3 mg/dL Normal 0.3-1.0 [facility] Comment on above: Performed By: #### G MAYURILS #### Point of Care testing , Calcium [Mass/Vol] 8.9 mg/dL Normal 8.6-10.3 [facility] Comment on above: Performed By: #### G LULS #### Point of Care testing , Chloride [Moles/Vol] 108 mmol/L High 98-107 [facility] Comment on above: Performed By: #### G LULS #### Point of Care testing , CO2 [Moles/Vol] 27.8 mmol/L Normal 21.0-31.0 [facility] Comment on above: Performed By: #### G LULS #### Point of Care testing , Creatinine [Mass/Vol] 0.56 mg/dL Low 0.60-1.20 [facility] Comment on above: Performed By: #### G LULS #### Point of Care testing , Creatinine Clr Calc Pharmacy 120.80 Normal [facility] Comment on above: Performed By: #### G LULS #### Point of Care testing , GFR/1.73 sq M.predicted MDRD (S/P/Bld) [Vol rate/Area] mL/min/{1.73_m2} Normal [facility] Comment on above: Performed By: #### G LULS #### Point of Care testing , Globulin (S) [Mass/Vol] 2.2 g/dL Normal [facility] Comment on above: Performed By: #### G MAYURILS #### Point of Care testing , Glucose [Mass/Vol] 107 mg/dL High 70-100 [facility] Comment on above: Result Comment: [place] Glucose Reference Range is dependent on time and content of last meal. Glucose of more than 200 mg/dL in a nonstressed, ambulatory subject supports the diagnosis of Diabetes Mellitus. ADA recommended reference range Performed By: #### G LULS #### Point of Care testing , Potassium [Moles/Vol] 4.4 mmol/L Normal 3.5-5.1 [facility] Comment on above: Performed By: #### G MAYURILS #### Point of Care testing , Protein [Mass/Vol] 5.0 g/dL Low 6.4-8.9 [facility] Comment on above: Performed By: #### G LULS #### Point of Care testing , Sodium [Moles/Vol] 142 mmol/L Normal 136-145 [facility] Comment on above: Performed By: #### G LULS #### Point of Care testing , Urea nitrogen [Mass/Vol] 11 mg/dL Normal 7-25 [facility] Comment on above: Performed By: #### G LULS #### Point of Care testing , Diff and CBCon 10-05-2024 Anisocytosis Ql (Bld) Slight Normal [facility] Comment on above: Performed By: #### G LULS #### Point of Care testing , Band form neutrophils/100 WBC (Bld) 2 % Normal 0-5 [facility] Comment on above: Performed By: #### G LULS #### Point of Care testing , Erythrocyte distribution width (RBC) [Ratio] 17.6 % High 11.9-15.3 [facility] Comment on above: Performed By: #### G LULS #### Point of Care testing , Hematocrit (Bld) [Volume fraction] 36.5 % Normal 34.0-46.4 [facility] Comment on above: Performed By: #### G LULS #### Point of Care testing , Hemoglobin (Bld) [Mass/Vol] 12.0 g/dL Normal 11.8-15.4 [facility] Comment on above: Performed By: #### G LULS #### Point of Care testing , Hypochromasia Slight Normal [facility] Comment on above: Performed By: #### G LULS #### Point of Care testing , Lymphocytes/100 WBC (Bld) 14 % Low 18-42 [facility] Comment on above: Performed By: #### G LULS #### Point of Care testing , MCH (RBC) [Entitic mass] 32.8 pg Normal 24.7-34.3 [facility] Comment on above: Performed By: #### G LULS #### Point of Care testing , MCV (RBC) [Entitic vol] 99.4 fL Normal 80-100 [facility] Comment on above: Performed By: #### G LULS #### Point of Care testing , Mean Corpuscular HGB Conc 32.9 g/dL Normal 32.0-35.0 [facility] Comment on above: Performed By: #### G LULS #### Point of Care testing , Metamyelocytes 1 % High 0-0 [facility] Comment on above: Performed By: #### G LULS #### Point of Care testing , Monocytes/100 WBC (Bld) 2 % Normal 2-11 [facility] Comment on above: Performed By: #### G LULS #### Point of Care testing , Myelocytes 2 % High 0-0 [facility] Comment on above: Performed By: #### G LULS #### Point of Care testing , Platelet Estimate Normal Normal Normal [facility] Comment on above: Performed By: #### G LULS #### Point of Care testing , Platelet mean volume (Bld) [Entitic vol] 8.7 fL Normal 6.3-10.7 [facility] Comment on above: Performed By: #### G LULS #### Point of Care testing , Platelet Morphology Normal Normal Normal [facility] Comment on above: Result Comment: PERF ORMED BY: [facility] [place] [address] PATHOLOGIST PUBLIC RELATIONS COUNSELOR CHRISTOPHER PEDROZA M.D. Performed By: #### G LULS #### Point of Care testing , Platelets (Bld) [#/Vol] 244 10*3/uL Normal 150-450 [facility] Comment on above: Performed By: #### G LULS #### Point of Care testing , RBC (Bld) [#/Vol] 3.68 10*6/uL Normal 3.60-5.00 [facility] Comment on above: Performed By: #### G LULS #### Point of Care testing , Segmented neutrophils/100 WBC (Bld) 79 % High 50-70 [facility] Comment on above: Performed By: #### G LULS #### Point of Care testing , WBC (Bld) [#/Vol] 11.0 10*3/uL Normal 3.8-11.6 [facility] Comment on above: Performed By: #### G MARY #### Point of Care testing , White Blood Count 11.0 [CFU]/mL Normal 3.8-11.6 [facility] Comment on above: Performed By: #### G MARY #### Point of Care testing , Glucose Poct Glucometerson 0 10-05-2024 Glucose [Mass/Vol] 142 mg/dL Normal [facility] Comment on above: Result Comment: [place] om Glucose Reference Range is dependent on time and content of last meal. Glucose of more than 200 mg/dL in a nonstressed, ambulatory subject supports the diagnosis of Diabetes Mellitus. PERFORMED BY: [place] [address] PATHOLOGIST PUBLIC RELATIONS COUNSELOR CHRISTOPHER PEDROZA M.D. Performed By: #### H S TROP, CMP, LACTIC, CBC, MG #### [address] Commemt1 Glu2: Cleaned Meter Normal [facility] Comment on above: Result Comment: PERF ORMED BY: [place] [address] PATHOLOGIST PUBLIC RELATIONS COUNSELOR CHRISTOPHER PEDROZA M.D. Performed By: #### H S TROP, CMP, LACTIC, CBC, MG #### [address] Glucose [Mass/Vol] 251 mg/dL Normal [facility] Comment on above: Result Comment: [place] om Glucose Reference Range is dependent on time and content of last meal. Glucose of more than 200 mg/dL in a nonstressed, ambulatory subject supports the diagnosis of Diabetes Mellitus. Performed By: #### H S TROP, CMP, LACTIC, CBC, MG #### [address] Glucose [Mass/Vol] 187 mg/dL Normal [facility] Comment on above: Result Comment: [place] om Glucose Reference Range is dependent on time and content of last meal. Glucose of more than 200 mg/dL in a nonstressed, ambulatory subject supports the diagnosis of Diabetes Mellitus. PERFORMED BY: [place] [address] PATHOLOGIST PUBLIC RELATIONS COUNSELOR CHRISTOPHER PEDROZA M.D. Performed By: #### G LULS #### Point of Care testing , Glucose [Mass/Vol] 86 mg/dL Normal [facility] Comment on above: Result Comment: [facility] Glucose Reference Range is dependent on time and content of last meal. Glucose of more than 200 mg/dL in a nonstressed, ambulatory subject supports the diagnosis of Diabetes Mellitus. PERFORMED BY: [place] [address] PATHOLOGIST PUBLIC RELATIONS COUNSELOR CHRISTOPHER PEDROZA M.D. Performed By: #### G LULS #### Point of Care testing , Magnesiumon 10-05-2024 Magnesium [Mass/Vol] 2.0 mg/dL Normal 1.9-2.7 [facility] Comment on above: Result Comment: PERF ORMED BY: [place] [address] PATHOLOGIST PUBLIC RELATIONS COUNSELOR CHRISTOPHER PEDROZA M.D. Performed By: #### G LULS #### Point of Care testing , Comprehensive Metabolic Pane jerrell 10-04-2024 Albumin [Mass/Vol] 2.7 g/dL Low 3.5-5.7 [facility] Comment on above: Performed By: #### H S TROP, CMP, LACTIC, CBC, MG #### [address] Albumin/Globulin [Mass ratio] 1.3 {ratio} Normal [facility] Comment on above: Performed By: #### H S TROP, CMP, LACTIC, CBC, MG #### [address] ALP [Catalytic activity/Vol] 52 U/L Normal 34-104 [facility] Comment on above: Performed By: #### H S TROP, CMP, LACTIC, CBC, MG #### [place] [id number] [place] ALT [Catalytic activity/Vol] 56 U/L High 7-52 [facility] Comment on above: Performed By: #### H S TROP, CMP, LACTIC, CBC, MG #### [address] Anion gap [Moles/Vol] 9.1 mmol/L Normal 6.0-15.0 [facility] Comment on above: Performed By: #### H S TROP, CMP, LACTIC, CBC, MG #### [address] AST [Catalytic activity/Vol] 17 U/L Normal 13-39 [facility] Comment on above: Performed By: #### H S TROP, CMP, LACTIC, CBC, MG #### [address] Bilirubin [Mass/Vol] 0.3 mg/dL Normal 0.3-1.0 [facility] Comment on above: Performed By: #### H S TROP, CMP, LACTIC, CBC, MG #### [address] Calcium [Mass/Vol] 8.8 mg/dL Normal 8.6-10.3 [facility] Comment on above: Performed By: #### H S TROP, CMP, LACTIC, CBC, MG #### [address] Chloride [Moles/Vol] 106 mmol/L Normal 98-107 [facility] Comment on above: Performed By: #### H S TROP, CMP, LACTIC, CBC, MG #### [address] CO2 [Moles/Vol] 28.1 mmol/L Normal 21.0-31.0 [facility] Comment on above: Performed By: #### H S TROP, CMP, LACTIC, CBC, MG #### [address] Creatinine [Mass/Vol] 0.74 mg/dL Normal 0.60-1.20 [facility] Comment on above: Performed By: #### H S TROP, CMP, LACTIC, CBC, MG #### [facility] [address] Creatinine Clr Calc Pharmacy 90.68 Normal [facility] Comment on above: Performed By: #### H S TROP, CMP, LACTIC, CBC, MG #### [address] GFR/1.73 sq M.predicted MDRD (S/P/Bld) [Vol rate/Area] mL/min/{1.73_m2} Normal [facility] Comment on above: Performed By: #### H S TROP, CMP, LACTIC, CBC, MG #### [address] Globulin (S) [Mass/Vol] 2.1 g/dL Normal [facility] Comment on above: Performed By: #### H S TROP, CMP, LACTIC, CBC, MG #### [address] Glucose [Mass/Vol] 116 mg/dL High 70-100 [facility] Comment on above: Result Comment: [facility] Glucose Reference Range is dependent on time and content of last meal. Glucose of more than 200 mg/dL in a nonstressed, ambulatory subject supports the diagnosis of Diabetes Mellitus. ADA recommended reference range Performed By: #### H S TROP, CMP, LACTIC, CBC, MG #### [address] Potassium [Moles/Vol] 4.2 mmol/L Normal 3.5-5.1 [facility] Comment on above: Performed By: #### H S TROP, CMP, LACTIC, CBC, MG #### [address] Protein [Mass/Vol] 4.8 g/dL Low 6.4-8.9 [facility] Comment on above: Performed By: #### H S TROP, CMP, LACTIC, CBC, MG #### [address] Sodium [Moles/Vol] 139 mmol/L Normal 136-145 [facility] Comment on above: Performed By: #### H S TROP, CMP, LACTIC, CBC, MG #### [address] Urea nitrogen [Mass/Vol] 14 mg/dL Normal 7-25 [facility] Comment on above: Performed By: #### H S TROP, CMP, LACTIC, CBC, MG #### [address] Diff and CBCon 10-04-2024 Anisocytosis Ql (Bld) Moderate Normal [facility] Comment on above: Performed By: #### H S TROP, CMP, LACTIC, CBC, MG #### [address] Basophils/100 WBC (Bld) 0 % Normal 0-2 [facility] Comment on above: Performed By: #### H S TROP, CMP, LACTIC, CBC, MG #### [address] Eosinophils/100 WBC (Bld) 0 % Low 1-3 [facility] Comment on above: Performed By: #### H S TROP, CMP, LACTIC, CBC, MG #### [address] Erythrocyte distribution width (RBC) [Ratio] 17.3 % High 11.9-15.3 [facility] Comment on above: Performed By: #### H S TROP, CMP, LACTIC, CBC, MG #### [address] Giant Platelet Tally 2 /100{WBC} Normal [facility] Comment on above: Performed By: #### H S TROP, CMP, LACTIC, CBC, MG #### [address] Hematocrit (Bld) [Volume fraction] 35.1 % Normal 34.0-46.4 [facility] Comment on above: Performed By: #### H S TROP, CMP, LACTIC, CBC, MG #### [address] Hemoglobin (Bld) [Mass/Vol] 11.6 g/dL Low 11.8-15.4 [facility] Comment on above: Performed By: #### H S TROP, CMP, LACTIC, CBC, MG #### [address] Large Platelets Slight Normal [facility] Comment on above: Result Comment: PERF ORMED BY: [place] [address] PATHOLOGIST PUBLIC RELATIONS COUNSELOR CHRISTOPHER PEDROZA M.D. Performed By: #### H S TROP, CMP, LACTIC, CBC, MG #### [address] Lymphocytes/100 WBC (Bld) 16 % Low 18-42 [facility] Comment on above: Performed By: #### H S TROP, CMP, LACTIC, CBC, MG #### [address] MCH (RBC) [Entitic mass] 32.8 pg Normal 24.7-34.3 [facility] Comment on above: Performed By: #### H S TROP, CMP, LACTIC, CBC, MG #### [address] MCV (RBC) [Entitic vol] 99.1 fL Normal 80-100 [facility] Comment on above: Performed By: #### H S TROP, CMP, LACTIC, CBC, MG #### [address] Mean Corpuscular HGB Conc 33.1 g/dL Normal 32.0-35.0 [facility] Comment on above: Performed By: #### H S TROP, CMP, LACTIC, CBC, MG #### [address] Metamyelocytes 1 % High 0-0 [facility] Comment on above: Performed By: #### H S TROP, CMP, LACTIC, CBC, MG #### [address] Monocytes/100 WBC (Bld) 5 % Normal 2-11 [facility] Comment on above: Performed By: #### H S TROP, CMP, LACTIC, CBC, MG #### [address] Myelocytes 3 % High 0-0 [facility] Comment on above: Performed By: #### H S TROP, CMP, LACTIC, CBC, MG #### [address] Platelet Estimate Normal Normal Normal [facility] Comment on above: Performed By: #### H S TROP, CMP, LACTIC, CBC, MG #### [address] Platelet mean volume (Bld) [Entitic vol] 9.1 fL Normal 6.3-10.7 [facility] Comment on above: Performed By: #### H S TROP, CMP, LACTIC, CBC, MG #### [address] Platelets (Bld) [#/Vol] 240 10*3/uL Normal 150-450 [facility] Comment on above: Performed By: #### H S TROP, CMP, LACTIC, CBC, MG #### [address] Polychromasia Slight Normal [facility] Comment on above: Performed By: #### H S TROP, CMP, LACTIC, CBC, MG #### [address] RBC (Bld) [#/Vol] 3.54 10*6/uL Low 3.60-5.00 [facility] Comment on above: Performed By: #### H S TROP, CMP, LACTIC, CBC, MG #### [address] RBC morphology finding Nom (Bld) Normal Normal Normal [facility] Comment on above: Performed By: #### H S TROP, CMP, LACTIC, CBC, MG #### [address] Segmented neutrophils/100 WBC (Bld) 75 % High 50-70 [facility] Comment on above: Performed By: #### H S TROP, CMP, LACTIC, CBC, MG #### [address] WBC (Bld) [#/Vol] 12.2 10*3/uL High 3.8-11.6 [facility] Comment on above: Performed By: #### H S TROP, CMP, LACTIC, CBC, MG #### [address] White Blood Count 12.2 [CFU]/mL High 3.8-11.6 [facility] Comment on above: Performed By: #### H S TROP, CMP, LACTIC, CBC, MG #### [address] Glucose Poct Glucometerson 0 10-04-2024 Glucose [Mass/Vol] 188 mg/dL Normal [facility] Comment on above: Result Comment: [place] Glucose Reference Range is dependent on time and content of last meal. Glucose of more than 200 mg/dL in a nonstressed, ambulatory subject supports the diagnosis of Diabetes Mellitus. PERFORMED BY: [place] [address] PATHOLOGIST PUBLIC RELATIONS COUNSELOR CHRISTOPHER PEDROZA M.D. Performed By: #### H S TROP, CMP, LACTIC, CBC, MG #### [address] Commemt1 Glu2: Cleaned Meter Normal [facility] Comment on above: Result Comment: PERF ORMED BY: [place] [address] PATHOLOGIST PUBLIC RELATIONS COUNSELOR CHRISTOPHER PEDROZA M.D. Performed By: #### G LULS #### Point of Care testing , Glucose [Mass/Vol] 299 mg/dL Normal [facility] Comment on above: Result Comment: [place] Glucose Reference Range is dependent on time and content of last meal. Glucose of more than 200 mg/dL in a nonstressed, ambulatory subject supports the diagnosis of Diabetes Mellitus. Performed By: #### G LULS #### Point of Care testing , Commemt1 Glu2: Cleaned Meter Normal [facility] Comment on above: Result Comment: PERF ORMED BY: [place] [address] PATHOLOGIST PUBLIC RELATIONS COUNSELOR CHRISTOPHER PEDROZA M.D. Performed By: #### H S TROP, CMP, LACTIC, CBC, MG #### [address] Glucose [Mass/Vol] 257 mg/dL Normal [facility] Comment on above: Result Comment: [place] om Glucose Reference Range is dependent on time and content of last meal. Glucose of more than 200 mg/dL in a nonstressed, ambulatory subject supports the diagnosis of Diabetes Mellitus. Performed By: #### H S TROP, CMP, LACTIC, CBC, MG #### [address] Commemt1 Glu2: Cleaned Meter Normal [facility] Comment on above: Result Comment: PERF ORMED BY: [place] [address] PATHOLOGIST PUBLIC RELATIONS COUNSELOR CHRISTOPHER PEDROZA M.D. Performed By: #### H S TROP, CMP, LACTIC, CBC, MG #### [address] Glucose [Mass/Vol] 92 mg/dL Normal [facility] Comment on above: Result Comment: [place] om Glucose Reference Range is dependent on time and content of last meal. Glucose of more than 200 mg/dL in a nonstressed, ambulatory subject supports the diagnosis of Diabetes Mellitus. Performed By: #### H S TROP, CMP, LACTIC, CBC, MG #### [place] [address] [place] Magnesiumon 10-04-2024 Magnesium [Mass/Vol] 1.9 mg/dL Normal 1.9-2.7 [facility] Comment on above: Result Comment: PERF ORMED BY: [place] [address] PATHOLOGIST PUBLIC RELATIONS COUNSELOR CHRISTOPHER PEDROZA M.D. Performed By: #### H S TROP, CMP, LACTIC, CBC, MG #### [address] Comprehensive Metabolic Pane jerrell 10-03-2024 Albumin [Mass/Vol] 2.8 g/dL Low 3.5-5.7 [facility] Comment on above: Performed By: #### H S TROP, CMP, LACTIC, CBC, MG #### [address] Albumin/Globulin [Mass ratio] 1.1 {ratio} Normal [facility] Comment on above: Performed By: #### H S TROP, CMP, LACTIC, CBC, MG #### [address] ALP [Catalytic activity/Vol] 55 U/L Normal 34-104 [facility] Comment on above: Performed By: #### H S TROP, CMP, LACTIC, CBC, MG #### [address] ALT [Catalytic activity/Vol] 64 U/L High 7-52 [facility] Comment on above: Performed By: #### H S TROP, CMP, LACTIC, CBC, MG #### [address] Anion gap [Moles/Vol] 11.1 mmol/L Normal 6.0-15.0 [facility] Comment on above: Performed By: #### H S TROP, CMP, LACTIC, CBC, MG #### [address] AST [Catalytic activity/Vol] 25 U/L Normal 13-39 [facility] Comment on above: Performed By: #### H S TROP, CMP, LACTIC, CBC, MG #### [address] Bilirubin [Mass/Vol] 0.4 mg/dL Normal 0.3-1.0 [facility] Comment on above: Performed By: #### H S TROP, CMP, LACTIC, CBC, MG #### [address] Calcium [Mass/Vol] 8.8 mg/dL Normal 8.6-10.3 [facility] Comment on above: Performed By: #### H S TROP, CMP, LACTIC, CBC, MG #### [facility] [address] Chloride [Moles/Vol] 105 mmol/L Normal 98-107 [facility] Comment on above: Performed By: #### H S TROP, CMP, LACTIC, CBC, MG #### [address] CO2 [Moles/Vol] 26.6 mmol/L Normal 21.0-31.0 [facility] Comment on above: Performed By: #### H S TROP, CMP, LACTIC, CBC, MG #### [address] Creatinine [Mass/Vol] 0.52 mg/dL Low 0.60-1.20 [facility] Comment on above: Performed By: #### H S TROP, CMP, LACTIC, CBC, MG #### [address] Creatinine Clr Calc Pharmacy 126.67 Normal [facility] Comment on above: Performed By: #### H S TROP, CMP, LACTIC, CBC, MG #### [place] [address] [place] GFR/1.73 sq M.predicted MDRD (S/P/Bld) [Vol rate/Area] mL/min/{1.73_m2} Normal [facility] Comment on above: Performed By: #### H S TROP, CMP, LACTIC, CBC, MG #### [place] [address] [place] Globulin (S) [Mass/Vol] 2.6 g/dL Normal [facility] Comment on above: Performed By: #### H S TROP, CMP, LACTIC, CBC, MG #### [facility] [address] [place] [address] [place] Glucose [Mass/Vol] 128 mg/dL High 70-100 [facility] Comment on above: Result Comment: [place] om Glucose Reference Range is dependent on time and content of last meal. Glucose of more than 200 mg/dL in a nonstressed, ambulatory subject supports the diagnosis of Diabetes Mellitus. ADA recommended reference range Performed By: #### H S TROP, CMP, LACTIC, CBC, MG #### [address] Potassium [Moles/Vol] 3.7 mmol/L Normal 3.5-5.1 [facility] Comment on above: Result Comment: Hemo lysis is present at a level that could interfere with the result. Contact lab if redraw is required Performed By: #### H S TROP, CMP, LACTIC, CBC, MG #### [address] Protein [Mass/Vol] 5.4 g/dL Low 6.4-8.9 [facility] Comment on above: Performed By: #### H S TROP, CMP, LACTIC, CBC, MG #### [address] Sodium [Moles/Vol] 139 mmol/L Normal 136-145 [facility] Comment on above: Performed By: #### H S TROP, CMP, LACTIC, CBC, MG #### [address] Urea nitrogen [Mass/Vol] 10 mg/dL Normal 7-25 [facility] Comment on above: Performed By: #### H S TROP, CMP, LACTIC, CBC, MG #### [address] Diff and CBCon 10-03-2024 Anisocytosis Ql (Bld) Slight Normal [facility] Comment on above: Performed By: #### H S TROP, CMP, LACTIC, CBC, MG #### [address] Band form neutrophils/100 WBC (Bld) 1 % Normal 0-5 [facility] Comment on above: Performed By: #### H S TROP, CMP, LACTIC, CBC, MG #### [address] Erythrocyte distribution width (RBC) [Ratio] 17.2 % High 11.9-15.3 [facility] Comment on above: Performed By: #### H S TROP, CMP, LACTIC, CBC, MG #### [address] Hematocrit (Bld) [Volume fraction] 36.0 % Normal 34.0-46.4 [facility] Comment on above: Performed By: #### H S TROP, CMP, LACTIC, CBC, MG #### [address] Hemoglobin (Bld) [Mass/Vol] 11.9 g/dL Normal 11.8-15.4 [facility] Comment on above: Performed By: #### H S TROP, CMP, LACTIC, CBC, MG #### [address] Large Platelets Slight Normal [facility] Comment on above: Result Comment: PERF ORMED BY: [place] [address] PATHOLOGIST PUBLIC RELATIONS COUNSELOR CHRISTOPHER PEDROZA M.D. Performed By: #### H S TROP, CMP, LACTIC, CBC, MG #### [address] Lymphocytes/100 WBC (Bld) 13 % Low 18-42 [facility] Comment on above: Performed By: #### H S TROP, CMP, LACTIC, CBC, MG #### [address] MCH (RBC) [Entitic mass] 32.7 pg Normal 24.7-34.3 [facility] Comment on above: Performed By: #### H S TROP, CMP, LACTIC, CBC, MG #### [address] MCV (RBC) [Entitic vol] 98.5 fL Normal 80-100 [facility] Comment on above: Performed By: #### H S TROP, CMP, LACTIC, CBC, MG #### [place] [address] [place] Mean Corpuscular HGB Conc 33.2 g/dL Normal 32.0-35.0 [facility] Comment on above: Performed By: #### H S TROP, CMP, LACTIC, CBC, MG #### [address] Metamyelocytes 1 % High 0-0 [facility] Comment on above: Performed By: #### H S TROP, CMP, LACTIC, CBC, MG #### [address] Monocytes/100 WBC (Bld) 1 % Low 2-11 [facility] Comment on above: Performed By: #### H S TROP, CMP, LACTIC, CBC, MG #### [address] Myelocytes 1 % High 0-0 [facility] Comment on above: Performed By: #### H S TROP, CMP, LACTIC, CBC, MG #### [address] Ovalocytes Slight Normal [facility] Comment on above: Performed By: #### H S TROP, CMP, LACTIC, CBC, MG #### [address] Platelet Estimate Normal Normal Normal [facility] Comment on above: Performed By: #### H S TROP, CMP, LACTIC, CBC, MG #### [address] Platelet mean volume (Bld) [Entitic vol] 9.7 fL Normal 6.3-10.7 [facility] [facility] Comment on above: Performed By: #### H S TROP, CMP, LACTIC, CBC, MG #### [place] [address] [place] Platelets (Bld) [#/Vol] 241 10*3/uL Normal 150-450 [facility] Comment on above: Performed By: #### H S TROP, CMP, LACTIC, CBC, MG #### [address] Poikilocytosis Slight Normal [facility] Comment on above: Performed By: #### H S TROP, CMP, LACTIC, CBC, MG #### [address] Polychromasia Slight Normal [facility] Comment on above: Performed By: #### H S TROP, CMP, LACTIC, CBC, MG #### [address] RBC (Bld) [#/Vol] 3.66 10*6/uL Normal 3.60-5.00 [facility] Comment on above: Performed By: #### H S TROP, CMP, LACTIC, CBC, MG #### [address] Reactive Lymphocytes 1 % Normal 0-12 [facility] Comment on above: Performed By: #### H S TROP, CMP, LACTIC, CBC, MG #### [address] Schistocytes Slight Normal [facility] Comment on above: Performed By: #### H S TROP, CMP, LACTIC, CBC, MG #### [address] Segmented neutrophils/100 WBC (Bld) 83 % High 50-70 [facility] Comment on above: Performed By: #### H S TROP, CMP, LACTIC, CBC, MG #### [address] Stomatocytes Slight Normal [facility] Comment on above: Performed By: #### H S TROP, CMP, LACTIC, CBC, MG #### [place] [address] [place] WBC (Bld) [#/Vol] 13.3 10*3/uL High 3.8-11.6 [facility] Comment on above: Performed By: #### H S TROP, CMP, LACTIC, CBC, MG #### [address] White Blood Count 13.3 [CFU]/mL High 3.8-11.6 [facility] Comment on above: Performed By: #### H S TROP, CMP, LACTIC, CBC, MG #### [facility] [address] [place] [address] Glucose Poct Glucometerson 0 10-03-2024 Glucose [Mass/Vol] 332 mg/dL Normal [facility] Comment on above: Result Comment: [place] Glucose Reference Range is dependent on time and content of last meal. Glucose of more than 200 mg/dL in a nonstressed, ambulatory subject supports the diagnosis of Diabetes Mellitus. PERFORMED BY: [place] [address] PATHOLOGIST PUBLIC RELATIONS COUNSELOR CHRISTOPHER PEDROZA M.D. Performed By: #### G LULS #### Point of Care testing , Glucose [Mass/Vol] 245 mg/dL Normal [facility] Comment on above: Result Comment: [place] Glucose Reference Range is dependent on time and content of last meal. Glucose of more than 200 mg/dL in a nonstressed, ambulatory subject supports the diagnosis of Diabetes Mellitus. PERFORMED BY: [place] [address] PATHOLOGIST PUBLIC RELATIONS COUNSELOR CHRISTOPHER PEDROZA M.D. Performed By: #### G LULS #### Point of Care testing , Glucose [Mass/Vol] 174 mg/dL Normal [facility] Comment on above: Result Comment: [place] Glucose Reference Range is dependent on time and content of last meal. Glucose of more than 200 mg/dL in a nonstressed, ambulatory subject supports the diagnosis of Diabetes Mellitus. PERFORMED BY: [place] [address] PATHOLOGIST PUBLIC RELATIONS COUNSELOR CHRISTOPHER PEDROZA M.D. Performed By: #### H S TROP, CMP, LACTIC, CBC, MG #### [address] Glucose [Mass/Vol] 105 mg/dL Normal [facility] Comment on above: Result Comment: [place] Glucose Reference Range is dependent on time and content of last meal. Glucose of more than 200 mg/dL in a nonstressed, ambulatory subject supports the diagnosis of Diabetes Mellitus. PERFORMED BY: [address] [address] PATHOLOGIST PUBLIC RELATIONS COUNSELOR CHRISTOPHER PEDROZA M.D. Performed By: #### H S TROP, CMP, LACTIC, CBC, MG #### [address] [address] [facility] Magnesiumon 10-03-2024 Magnesium [Mass/Vol] 2.0 mg/dL Normal 1.9-2.7 [facility] Comment on above: Result Comment: PERF ORMED BY: [place] [address] PATHOLOGIST PUBLIC RELATIONS COUNSELOR CHRISTOPHER PEDROZA M.D. Performed By: #### H S TROP, CMP, LACTIC, CBC, MG #### [place] [id number] [facility] US venous duplex LE BIon US venous duplex LE BI [facility] [place] [address] [place] [address] Ultrasound Report Signed Patient: Kaylynn Talamantes MR#: [id number] : 1960 Acct:[id number] Age/Sex: 64 / F ADM Date: 09/28/24 Loc: Room: [address] [place] [address] Type: ADM IN Attending Dr: Ingris Lopez MD Ordering Provider: Ingris Lopez MD Date of Service: 10/02/24 US/US venous duplex LE BI: Bilateral leg swelling, r/o DVT Copies to: Ingris Lopez MD BILATERAL LOWER EXTREMITY VENOUS DUPLEX INDICATION: Bilateral lower extremity edema and swelling. PROCEDURE: Color-flow duplex scanning is used to interrogate the deep venous system of the right and left lower extremities. The common femoral vein, femoral vein and popliteal vein show good compressibility with normal proximal and distal augmentation. The calf veins are compressible. US/US venous duplex LE BI IMPRESSION: NO EVIDENCE FOR DEEP VEIN THROMBOSIS OR PROXIMAL SUPERFICIAL THROMBOPHLEBITIS IN THE RIGHT OR LEFT LOWER EXTREMITY. Impression dictated by: Mehdi Rodriguez MD,FACS,FSVS 10/03/2024 1:51 PM Dictation Location: [facility]DOC-04 Tech: Isabel Sandoval Transcribed By: MOJGAN 10/03/24 1351 Dictated By: Mehdi Rodriguez MD 10/03/24 1351 Signed By: 10/03/24 1351 Normal [facility] Complete Blood Count Auto Di ffon 10-02-2024 Basophils (Bld) [#/Vol] 0.1 10*3/uL Normal 0.0-0.2 [facility] Comment on above: Result Comment: PERF ORMED BY: [place] [address] PATHOLOGIST PUBLIC RELATIONS COUNSELOR CHRISTOPHER PEDROZA M.D. Performed By: #### C UU #### [address] Basophils/100 WBC (Bld) 0.4 % Normal . [facility] Comment on above: Performed By: #### C UU #### [address] Eosinophils (Bld) [#/Vol] 0.0 10*3/uL Normal 0.0-0.45 [facility] Comment on above: Performed By: #### C UU #### [address] Eosinophils/100 WBC (Bld) 0.1 % Normal . [facility] Comment on above: Performed By: #### C UU #### [address] Erythrocyte distribution width (RBC) [Ratio] 17.0 % High 11.9-15.3 [facility] Comment on above: Performed By: #### C UU #### [address] Hematocrit (Bld) [Volume fraction] 36.3 % Normal 34.0-46.4 [facility] Comment on above: Performed By: #### C UU #### [address] Hemoglobin (Bld) [Mass/Vol] 12.2 g/dL Normal 11.8-15.4 [facility] Comment on above: Performed By: #### C UU #### [address] Lymphocytes (Bld) [#/Vol] 1.7 10*3/uL Normal 1.00-4.8 [facility] Comment on above: Performed By: #### C UU #### [address] Lymphocytes/100 WBC (Bld) 14.3 % Normal . [facility] Comment on above: Performed By: #### C UU #### [address] MCH (RBC) [Entitic mass] 33.4 pg Normal 24.7-34.3 [facility] Comment on above: Performed By: #### C UU #### [address] MCV (RBC) [Entitic vol] 99.1 fL Normal 80-100 [facility] Comment on above: Performed By: #### C UU #### [address] Mean Corpuscular HGB Conc 33.7 g/dL Normal 32.0-35.0 [facility] Comment on above: Performed By: #### C UU #### [address] Monocytes (Bld) [#/Vol] 0.7 10*3/uL Normal 0.0-0.8 [facility] Comment on above: Performed By: #### C UU #### [address] Monocytes/100 WBC (Bld) 6.0 % Normal . [facility] Comment on above: Performed By: #### C UU #### [address] Neutrophils (Bld) [#/Vol] 9.5 10*3/uL High 1.8-7.7 [facility] Comment on above: Performed By: #### C UU #### [address] Neutrophils/100 WBC (Bld) 79.2 % Normal . [facility] Comment on above: Performed By: #### C UU #### [address] NRBC% 0.2 /100{WBC} Normal 0-0.5 [facility] Comment on above: Performed By: #### C UU #### [address] Platelet mean volume (Bld) [Entitic vol] 9.2 fL Normal 6.3-10.7 [facility] Comment on above: Performed By: #### C UU #### [address] Platelets (Bld) [#/Vol] 211 10*3/uL Normal 150-450 [facility] Comment on above: Performed By: #### C UU #### [address] RBC (Bld) [#/Vol] 3.66 10*6/uL Normal 3.60-5.00 [facility] Comment on above: Performed By: #### C UU #### [address] WBC (Bld) [#/Vol] 12.1 10*3/uL High 3.8-11.6 [facility] Comment on above: Performed By: #### C UU #### [address] White Blood Count 12.1 [CFU]/mL High 3.8-11.6 [facility] Comment on above: Performed By: #### C UU #### [address] Comprehensive Metabolic Pane jerrell 10-02-2024 Albumin [Mass/Vol] 3.0 g/dL Low 3.5-5.7 [facility] Comment on above: Performed By: #### C UU #### [address] Albumin/Globulin [Mass ratio] 1.1 {ratio} Normal [facility] Comment on above: Performed By: #### C UU #### [address] ALP [Catalytic activity/Vol] 54 U/L Normal 34-104 [facility] Comment on above: Performed By: #### C UU #### [address] ALT [Catalytic activity/Vol] 73 U/L High 7-52 [facility] Comment on above: Performed By: #### C UU #### [address] Anion gap [Moles/Vol] 9.8 mmol/L Normal 6.0-15.0 [facility] Comment on above: Performed By: #### C UU #### [address] AST [Catalytic activity/Vol] 27 U/L Normal 13-39 [facility] Comment on above: Performed By: #### C UU #### [address] Bilirubin [Mass/Vol] 0.6 mg/dL Normal 0.3-1.0 [facility] Comment on above: Performed By: #### C UU #### [address] Calcium [Mass/Vol] 9.1 mg/dL Normal 8.6-10.3 [facility] Comment on above: Performed By: #### C UU #### [place] [address] [place] Chloride [Moles/Vol] 104 mmol/L Normal 98-107 [facility] Comment on above: Performed By: #### C UU #### [address] CO2 [Moles/Vol] 28.0 mmol/L Normal 21.0-31.0 [facility] Comment on above: Performed By: #### C UU #### [address] Creatinine [Mass/Vol] 0.51 mg/dL Low 0.60-1.20 [facility] Comment on above: Performed By: #### C UU #### [place] [address] [place] Creatinine Clr Calc Pharmacy 129.15 Normal [facility] Comment on above: Performed By: #### C UU #### [place] [address] [place] GFR/1.73 sq M.predicted MDRD (S/P/Bld) [Vol rate/Area] mL/min/{1.73_m2} Normal [facility] Comment on above: Performed By: #### C UU #### [address] Globulin (S) [Mass/Vol] 2.7 g/dL Normal [facility] Comment on above: Performed By: #### C UU #### [address] Glucose [Mass/Vol] 92 mg/dL Normal 70-100 [facility] Comment on above: Result Comment: [facility] Glucose Reference Range is dependent on time and content of last meal. Glucose of more than 200 mg/dL in a nonstressed, ambulatory subject supports the diagnosis of Diabetes Mellitus. ADA recommended reference range Performed By: #### C UU #### [address] Potassium [Moles/Vol] 3.8 mmol/L Normal 3.5-5.1 [facility] Comment on above: Result Comment: Hemo lysis is present at a level that could interfere with the result. Contact lab if redraw is required Performed By: #### C UU #### [address] Protein [Mass/Vol] 5.7 g/dL Low 6.4-8.9 [facility] Comment on above: Performed By: #### C UU #### [address] Sodium [Moles/Vol] 138 mmol/L Normal 136-145 [facility] Comment on above: Performed By: #### C UU #### [address] Urea nitrogen [Mass/Vol] 9 mg/dL Normal 7-25 [facility] Comment on above: Performed By: #### C UU #### [address] Glucose Poct Glucometerson 0 10-02-2024 Commemt1 Glu2: Cleaned Meter Normal [facility] Comment on above: Result Comment: PERF ORMED BY: [place] [address] PATHOLOGIST PUBLIC RELATIONS COUNSELOR CHRISTOPHER PEDROZA M.D. Performed By: #### H S TROP, CMP, LACTIC, CBC, MG #### [address] Glucose [Mass/Vol] 354 mg/dL Normal [facility] Comment on above: Result Comment: [place] Glucose Reference Range is dependent on time and content of last meal. Glucose of more than 200 mg/dL in a nonstressed, ambulatory subject supports the diagnosis of Diabetes Mellitus. Performed By: #### H S TROP, CMP, LACTIC, CBC, MG #### [address] Glucose [Mass/Vol] 300 mg/dL Normal [facility] Comment on above: Result Comment: [place] Glucose Reference Range is dependent on time and content of last meal. Glucose of more than 200 mg/dL in a nonstressed, ambulatory subject supports the diagnosis of Diabetes Mellitus. PERFORMED BY: [place] [address] PATHOLOGIST PUBLIC RELATIONS COUNSELOR CHRISTOPHER PEDROZA M.D. Performed By: #### C UU #### [address] Glucose [Mass/Vol] 164 mg/dL Normal [facility] Comment on above: Result Comment: [place] Glucose Reference Range is dependent on time and content of last meal. Glucose of more than 200 mg/dL in a nonstressed, ambulatory subject supports the diagnosis of Diabetes Mellitus. PERFORMED BY: [place] [address] PATHOLOGIST PUBLIC RELATIONS COUNSELOR CHRISTOPHER PEDROZA M.D. Performed By: #### H S TROP, CMP, LACTIC, CBC, MG #### [address] Glucose [Mass/Vol] 96 mg/dL Normal [facility] Comment on above: Result Comment: [place] Glucose Reference Range is dependent on time and content of last meal. Glucose of more than 200 mg/dL in a nonstressed, ambulatory subject supports the diagnosis of Diabetes Mellitus. PERFORMED BY: [place] [address] PATHOLOGIST PUBLIC RELATIONS COUNSELOR CHRISTOPHER PEDROZA M.D. Performed By: #### G LULS #### Point of Care testing , Magnesiumon 10-02-2024 Magnesium [Mass/Vol] 2.0 mg/dL Normal 1.9-2.7 [facility] Comment on above: Result Comment: PERF ORMED BY: [place] [address] PATHOLOGIST PUBLIC RELATIONS COUNSELOR CHRISTOPHER PEDROZA M.D. Performed By: #### C UU #### [address] Comprehensive Metabolic Pane jerrell 10-01-2024 Albumin [Mass/Vol] 2.9 g/dL Low 3.5-5.7 [facility] Comment on above: Performed By: #### H S TROP, CMP, LACTIC, CBC, MG #### [address] Albumin/Globulin [Mass ratio] 1.0 {ratio} Normal [facility] Comment on above: Performed By: #### H S TROP, CMP, LACTIC, CBC, MG #### [address] ALP [Catalytic activity/Vol] 56 U/L Normal 34-104 [facility] Comment on above: Performed By: #### H S TROP, CMP, LACTIC, CBC, MG #### [address] ALT [Catalytic activity/Vol] 92 U/L High 7-52 [facility] Comment on above: Performed By: #### H S TROP, CMP, LACTIC, CBC, MG #### [address] Anion gap [Moles/Vol] 10.1 mmol/L Normal 6.0-15.0 [facility] Comment on above: Performed By: #### H S TROP, CMP, LACTIC, CBC, MG #### [address] AST [Catalytic activity/Vol] 51 U/L High 13-39 [facility] Comment on above: Performed By: #### H S TROP, CMP, LACTIC, CBC, MG #### [address] Bilirubin [Mass/Vol] 0.6 mg/dL Normal 0.3-1.0 [facility] Comment on above: Performed By: #### H S TROP, CMP, LACTIC, CBC, MG #### [address] Calcium [Mass/Vol] 9.0 mg/dL Normal 8.6-10.3 [facility] Comment on above: Performed By: #### H S TROP, CMP, LACTIC, CBC, MG #### [address] Chloride [Moles/Vol] 99 mmol/L Normal 98-107 [facility] Comment on above: Performed By: #### H S TROP, CMP, LACTIC, CBC, MG #### [address] CO2 [Moles/Vol] 27.5 mmol/L Normal 21.0-31.0 [facility] Comment on above: Performed By: #### H S TROP, CMP, LACTIC, CBC, MG #### [facility] [address] Creatinine [Mass/Vol] 0.53 mg/dL Low 0.60-1.20 [facility] Comment on above: Performed By: #### H S TROP, CMP, LACTIC, CBC, MG #### [facility] [address] [place] [address] [place] Creatinine Clr Calc Pharmacy 124.07 Normal [facility] Comment on above: Performed By: #### H S TROP, CMP, LACTIC, CBC, MG #### [facility] [address] [place] [address] [place] GFR/1.73 sq M.predicted MDRD (S/P/Bld) [Vol rate/Area] mL/min/{1.73_m2} Normal [facility] Comment on above: Performed By: #### H S TROP, CMP, LACTIC, CBC, MG #### [facility] [address] Globulin (S) [Mass/Vol] 2.9 g/dL Normal [facility] Comment on above: Performed By: #### H S TROP, CMP, LACTIC, CBC, MG #### [address] Glucose [Mass/Vol] 96 mg/dL Normal 70-100 [facility] Comment on above: Result Comment: [place] Glucose Reference Range is dependent on time and content of last meal. Glucose of more than 200 mg/dL in a nonstressed, ambulatory subject supports the diagnosis of Diabetes Mellitus. ADA recommended reference range Performed By: #### H S TROP, CMP, LACTIC, CBC, MG #### [facility] [address] Potassium [Moles/Vol] 3.6 mmol/L Normal 3.5-5.1 [facility] Comment on above: Performed By: #### H S TROP, CMP, LACTIC, CBC, MG #### [facility] [address] Protein [Mass/Vol] 5.8 g/dL Low 6.4-8.9 [facility] Comment on above: Performed By: #### H S TROP, CMP, LACTIC, CBC, MG #### [address] Sodium [Moles/Vol] 133 mmol/L Low 136-145 [facility] Comment on above: Performed By: #### H S TROP, CMP, LACTIC, CBC, MG #### [address] Urea nitrogen [Mass/Vol] 11 mg/dL Normal 7-25 [facility] Comment on above: Performed By: #### H S TROP, CMP, LACTIC, CBC, MG #### [address] Diff and CBCon 10-01-2024 Band form neutrophils/100 WBC (Bld) 2 % Normal 0-5 [facility] Comment on above: Performed By: #### H S TROP, CMP, LACTIC, CBC, MG #### [address] Erythrocyte distribution width (RBC) [Ratio] 16.5 % High 11.9-15.3 [facility] Comment on above: Performed By: #### H S TROP, CMP, LACTIC, CBC, MG #### [address] Giant Platelet Tally 3 /100{WBC} Normal [facility] Comment on above: Performed By: #### H S TROP, CMP, LACTIC, CBC, MG #### [address] Hematocrit (Bld) [Volume fraction] 34.0 % Normal 34.0-46.4 [facility] Comment on above: Performed By: #### H S TROP, CMP, LACTIC, CBC, MG #### [address] Hemoglobin (Bld) [Mass/Vol] 11.4 g/dL Low 11.8-15.4 [facility] Comment on above: Performed By: #### H S TROP, CMP, LACTIC, CBC, MG #### [address] Lymphocytes/100 WBC (Bld) 9 % Low 18-42 [facility] Comment on above: Performed By: #### H S TROP, CMP, LACTIC, CBC, MG #### [address] MCH (RBC) [Entitic mass] 32.9 pg Normal 24.7-34.3 [facility] Comment on above: Performed By: #### H S TROP, CMP, LACTIC, CBC, MG #### [address] MCV (RBC) [Entitic vol] 98.7 fL Normal 80-100 [facility] Comment on above: Performed By: #### H S TROP, CMP, LACTIC, CBC, MG #### [address] Mean Corpuscular HGB Conc 33.4 g/dL Normal 32.0-35.0 [facility] Comment on above: Performed By: #### H S TROP, CMP, LACTIC, CBC, MG #### [address] Monocytes/100 WBC (Bld) 2 % Normal 2-11 [facility] Comment on above: Performed By: #### H S TROP, CMP, LACTIC, CBC, MG #### [address] Platelet Estimate Normal Normal Normal [facility] Comment on above: Performed By: #### H S TROP, CMP, LACTIC, CBC, MG #### [address] Platelet mean volume (Bld) [Entitic vol] 10.2 fL Normal 6.3-10.7 [facility] Comment on above: Performed By: #### H S TROP, CMP, LACTIC, CBC, MG #### [address] Platelet Morphology Normal Normal Normal [facility] Comment on above: Result Comment: PERF ORMED BY: [address] [place] [address] PATHOLOGIST PUBLIC RELATIONS COUNSELOR CHRISTOPHER PEDROZA M.D. Performed By: #### H S TROP, CMP, LACTIC, CBC, MG #### [address] Platelets (Bld) [#/Vol] 174 10*3/uL Normal 150-450 [facility] Comment on above: Performed By: #### H S TROP, CMP, LACTIC, CBC, MG #### [address] RBC (Bld) [#/Vol] 3.45 10*6/uL Low 3.60-5.00 [facility] Comment on above: Performed By: #### H S TROP, CMP, LACTIC, CBC, MG #### [address] RBC morphology finding Nom (Bld) Normal Normal Normal [facility] Comment on above: Performed By: #### H S TROP, CMP, LACTIC, CBC, MG #### [address] Segmented neutrophils/100 WBC (Bld) 87 % High 50-70 [facility] Comment on above: Performed By: #### H S TROP, CMP, LACTIC, CBC, MG #### [address] WBC (Bld) [#/Vol] 11.4 10*3/uL Normal 3.8-11.6 [facility] Comment on above: Performed By: #### H S TROP, CMP, LACTIC, CBC, MG #### [address] White Blood Count 11.4 [CFU]/mL Normal 3.8-11.6 [facility] Comment on above: Performed By: #### H S TROP, CMP, LACTIC, CBC, MG #### [address] Glucose Poct Glucometerson 0 10-01-2024 Glucose [Mass/Vol] 249 mg/dL Normal [facility] Comment on above: Result Comment: [place] Glucose Reference Range is dependent on time and content of last meal. Glucose of more than 200 mg/dL in a nonstressed, ambulatory subject supports the diagnosis of Diabetes Mellitus. PERFORMED BY: [place] [address] PATHOLOGIST PUBLIC RELATIONS COUNSELOR CHRISTOPHER PEDROZA M.D. Performed By: #### C UU #### [address] Glucose [Mass/Vol] 261 mg/dL Normal [facility] Comment on above: Result Comment: [place] Glucose Reference Range is dependent on time and content of last meal. Glucose of more than 200 mg/dL in a nonstressed, ambulatory subject supports the diagnosis of Diabetes Mellitus. PERFORMED BY: [place] [address] PATHOLOGIST PUBLIC RELATIONS COUNSELOR CHRISTOPHER PEDROZA M.D. Performed By: #### C MP, LIPASE #### [address] Glucose [Mass/Vol] 275 mg/dL Normal [facility] Comment on above: Result Comment: [place] Glucose Reference Range is dependent on time and content of last meal. Glucose of more than 200 mg/dL in a nonstressed, ambulatory subject supports the diagnosis of Diabetes Mellitus. PERFORMED BY: [place] [address] PATHOLOGIST PUBLIC RELATIONS COUNSELOR CHRISTOPHER PEDROZA M.D. Performed By: #### C MP, LIPASE #### [address] Glucose [Mass/Vol] 112 mg/dL Normal [facility] Comment on above: Result Comment: [place] Glucose Reference Range is dependent on time and content of last meal. Glucose of more than 200 mg/dL in a nonstressed, ambulatory subject supports the diagnosis of Diabetes Mellitus. PERFORMED BY: [place] [address] PATHOLOGIST PUBLIC RELATIONS COUNSELOR CHRISTOPHER PEDROZA M.D. Performed By: #### C MP, LIPASE #### [address] Magnesiumon 10-01-2024 Magnesium [Mass/Vol] 2.0 mg/dL Normal 1.9-2.7 [facility] Comment on above: Result Comment: PERF ORMED BY: [place] [address] PATHOLOGIST PUBLIC RELATIONS COUNSELOR CHRISTOPHER PEDROZA M.D. Performed By: #### H S TROP, CMP, LACTIC, CBC, MG #### [address] Complete Blood Count Auto Di ffon 09-30-2024 Basophils (Bld) [#/Vol] 0.0 10*3/uL Normal 0.0-0.2 [facility] Comment on above: Result Comment: PERF ORMED BY: [place] [address] PATHOLOGIST PUBLIC RELATIONS COUNSELOR CHRISTOPHER PEDROZA M.D. Performed By: #### C MP, LIPASE #### [address] Basophils/100 WBC (Bld) 0.0 % Normal . [facility] Comment on above: Performed By: #### C MP, LIPASE #### [address] Eosinophils (Bld) [#/Vol] 0.0 10*3/uL Normal 0.0-0.45 [facility] Comment on above: Performed By: #### C MP, LIPASE #### [address] Eosinophils/100 WBC (Bld) 0.0 % Normal . [facility] Comment on above: Performed By: #### C MP, LIPASE #### [address] Erythrocyte distribution width (RBC) [Ratio] 17.0 % High 11.9-15.3 [facility] Comment on above: Performed By: #### C MP, LIPASE #### [address] Hematocrit (Bld) [Volume fraction] 34.3 % Normal 34.0-46.4 [facility] Comment on above: Performed By: #### C MP, LIPASE #### [address] Hemoglobin (Bld) [Mass/Vol] 11.6 g/dL Low 11.8-15.4 [facility] Comment on above: Performed By: #### C MP, LIPASE #### [address] Lymphocytes (Bld) [#/Vol] 0.7 10*3/uL Low 1.00-4.8 [facility] Comment on above: Performed By: #### C MP, LIPASE #### [address] Lymphocytes/100 WBC (Bld) 4.6 % Normal . [facility] Comment on above: Performed By: #### C MP, LIPASE #### [address] MCH (RBC) [Entitic mass] 33.0 pg Normal 24.7-34.3 [facility] Comment on above: Performed By: #### C MP, LIPASE #### [address] MCV (RBC) [Entitic vol] 98.0 fL Normal 80-100 [facility] Comment on above: Performed By: #### C MP, LIPASE #### [address] Mean Corpuscular HGB Conc 33.7 g/dL Normal 32.0-35.0 [facility] Comment on above: Performed By: #### C MP, LIPASE #### [address] Monocytes (Bld) [#/Vol] 0.4 10*3/uL Normal 0.0-0.8 [facility] Comment on above: Performed By: #### C MP, LIPASE #### [address] Monocytes/100 WBC (Bld) 2.5 % Normal . [facility] Comment on above: Performed By: #### C MP, LIPASE #### [facility] [address] [place] [address] [place] Neutrophils (Bld) [#/Vol] 14.7 10*3/uL High 1.8-7.7 [facility] Comment on above: Performed By: #### C MP, LIPASE #### [facility] [address] [place] [address] [place] Neutrophils/100 WBC (Bld) 92.9 % Normal . [facility] Comment on above: Performed By: #### C MP, LIPASE #### [facility] [address] [place] [address] [place] NRBC% 0.1 /100{WBC} Normal 0-0.5 [facility] Comment on above: Performed By: #### C MP, LIPASE #### [facility] [address] [place] [address] [place] Platelet mean volume (Bld) [Entitic vol] 9.7 fL Normal 6.3-10.7 [facility] Comment on above: Performed By: #### C MP, LIPASE #### [place] [address] [place] Platelets (Bld) [#/Vol] 161 10*3/uL Normal 150-450 [facility] Comment on above: Performed By: #### C MP, LIPASE #### [facility] [address] [place] [address] [place] RBC (Bld) [#/Vol] 3.50 10*6/uL Low 3.60-5.00 [facility] Comment on above: Performed By: #### C MP, LIPASE #### [facility] [address] [place] [address] [place] WBC (Bld) [#/Vol] 15.8 10*3/uL High 3.8-11.6 [facility] Comment on above: Performed By: #### C MP, LIPASE #### [facility] [address] [place] [address] [place] White Blood Count 15.8 [CFU]/mL High 3.8-11.6 [facility] Comment on above: Performed By: #### C MP, LIPASE #### [address] Comprehensive Metabolic Pane jerrell 09-30-2024 Albumin [Mass/Vol] 2.9 g/dL Low 3.5-5.7 [facility] Comment on above: Performed By: #### H S TROP, CMP, LACTIC, CBC, MG #### [address] Albumin/Globulin [Mass ratio] 1.0 {ratio} Normal [facility] Comment on above: Performed By: #### H S TROP, CMP, LACTIC, CBC, MG #### [address] ALP [Catalytic activity/Vol] 58 U/L Normal 34-104 [facility] Comment on above: Performed By: #### H S TROP, CMP, LACTIC, CBC, MG #### [address] ALT [Catalytic activity/Vol] 90 U/L High 7-52 [facility] Comment on above: Performed By: #### H S TROP, CMP, LACTIC, CBC, MG #### [address] Anion gap [Moles/Vol] 11.3 mmol/L Normal 6.0-15.0 [facility] Comment on above: Performed By: #### H S TROP, CMP, LACTIC, CBC, MG #### [address] AST [Catalytic activity/Vol] 127 U/L High 13-39 [facility] Comment on above: Performed By: #### H S TROP, CMP, LACTIC, CBC, MG #### [address] Bilirubin [Mass/Vol] 0.6 mg/dL Normal 0.3-1.0 [facility] Comment on above: Performed By: #### H S TROP, CMP, LACTIC, CBC, MG #### [address] Calcium [Mass/Vol] 8.5 mg/dL Low 8.6-10.3 [facility] Comment on above: Performed By: #### H S TROP, CMP, LACTIC, CBC, MG #### [address] Chloride [Moles/Vol] 95 mmol/L Low 98-107 [facility] Comment on above: Performed By: #### H S TROP, CMP, LACTIC, CBC, MG #### [address] CO2 [Moles/Vol] 23.6 mmol/L Normal 21.0-31.0 [facility] Comment on above: Performed By: #### H S TROP, CMP, LACTIC, CBC, MG #### [address] Creatinine [Mass/Vol] 0.50 mg/dL Low 0.60-1.20 [facility] Comment on above: Performed By: #### H S TROP, CMP, LACTIC, CBC, MG #### [place] [address] [place] Creatinine Clr Calc Pharmacy 131.01 Normal [facility] Comment on above: Performed By: #### H S TROP, CMP, LACTIC, CBC, MG #### [address] GFR/1.73 sq M.predicted MDRD (S/P/Bld) [Vol rate/Area] mL/min/{1.73_m2} Normal [facility] Comment on above: Performed By: #### H S TROP, CMP, LACTIC, CBC, MG #### [place] [address] [place] Globulin (S) [Mass/Vol] 2.9 g/dL Normal [facility] Comment on above: Performed By: #### H S TROP, CMP, LACTIC, CBC, MG #### [place] [address] [place] Glucose [Mass/Vol] 183 mg/dL High 70-100 [facility] Comment on above: Result Comment: [place] om Glucose Reference Range is dependent on time and content of last meal. Glucose of more than 200 mg/dL in a nonstressed, ambulatory subject supports the diagnosis of Diabetes Mellitus. ADA recommended reference range Performed By: #### H S TROP, CMP, LACTIC, CBC, MG #### [address] Potassium [Moles/Vol] 3.9 mmol/L Normal 3.5-5.1 [facility] Comment on above: Performed By: #### H S TROP, CMP, LACTIC, CBC, MG #### [address] Protein [Mass/Vol] 5.8 g/dL Low 6.4-8.9 [facility] Comment on above: Performed By: #### H S TROP, CMP, LACTIC, CBC, MG #### [address] Sodium [Moles/Vol] 126 mmol/L Low 136-145 [facility] Comment on above: Performed By: #### H S TROP, CMP, LACTIC, CBC, MG #### [address] Urea nitrogen [Mass/Vol] 14 mg/dL Normal 7-25 [facility] Comment on above: Performed By: #### H S TROP, CMP, LACTIC, CBC, MG #### [address] Glucose Poct Glucometerson 0 09-30-2024 Commemt1 Glu2: Cleaned Meter Normal [facility] Comment on above: Result Comment: PERF ORMED BY: [place] [address] PATHOLOGIST PUBLIC [employer]ATIONS COUNSELOR CHRISTOPHER PEDROZA M.D. Performed By: #### C MP, LIPASE #### [address] Glucose [Mass/Vol] 319 mg/dL Normal [facility] Comment on above: Result Comment: [place] om Glucose Reference Range is dependent on time and content of last meal. Glucose of more than 200 mg/dL in a nonstressed, ambulatory subject supports the diagnosis of Diabetes Mellitus. Performed By: #### C MP, LIPASE #### [address] Commemt1 Glu2: Cleaned Meter Normal [facility] Comment on above: Result Comment: PERF ORMED BY: [place] [address] PATHOLOGIST PUBLIC RELATIONS COUNSELOR CHRISTOPHER PEDROZA M.D. Performed By: #### C MP, LIPASE #### [address] Glucose [Mass/Vol] 321 mg/dL Normal [facility] Comment on above: Result Comment: [place] om Glucose Reference Range is dependent on time and content of last meal. Glucose of more than 200 mg/dL in a nonstressed, ambulatory subject supports the diagnosis of Diabetes Mellitus. Performed By: #### C MP, LIPASE #### [address] Commemt1 Glu2: Cleaned Meter Normal [facility] Comment on above: Result Comment: PERF ORMED BY: [place] [address] PATHOLOGIST PUBLIC RELATIONS COUNSELOR CHRISTOPHER PEDROZA M.D. Performed By: #### C MP, LIPASE #### [address] Glucose [Mass/Vol] 259 mg/dL Normal [facility] Comment on above: Result Comment: [place] om Glucose Reference Range is dependent on time and content of last meal. Glucose of more than 200 mg/dL in a nonstressed, ambulatory subject supports the diagnosis of Diabetes Mellitus. Performed By: #### C MP, LIPASE #### [address] Commemt1 Glu2: Cleaned Meter Normal [facility] Comment on above: Result Comment: PERF ORMED BY: [place] [address] PATHOLOGIST PUBLIC RELATIONS COUNSELOR CHRISTOPHER PEDROZA M.D. Performed By: #### C MP, LIPASE #### [address] Glucose [Mass/Vol] 180 mg/dL Normal [facility] Comment on above: Result Comment: [facility] Glucose Reference Range is dependent on time and content of last meal. Glucose of more than 200 mg/dL in a nonstressed, ambulatory subject supports the diagnosis of Diabetes Mellitus. Performed By: #### C MP, LIPASE #### [address] Magnesiumon 09-30-2024 Magnesium [Mass/Vol] 2.2 mg/dL Normal 1.9-2.7 [facility] Comment on above: Result Comment: PERF ORMED BY: [place] [address] PATHOLOGIST PUBLIC RELATIONS COUNSELOR CHRISTOPHER PEDROZA M.D. Performed By: #### C MP, LIPASE #### [address] Phosphoruson 09-30-2024 Phosphate [Mass/Vol] 2.5 mg/dL Normal 2.5-4.5 [facility] Comment on above: Performed By: #### H S TROP, CMP, LACTIC, CBC, MG #### [address] Complete Blood Count Auto Di ffon 09-29-2024 Basophils (Bld) [#/Vol] 0.0 10*3/uL Normal 0.0-0.2 [facility] Comment on above: Order Comment: rn sa id to draw labs @0800 Result Comment: PERF ORMED BY: [place] [address] PATHOLOGIST PUBLIC RELATIONS COUNSELOR CHRISTOPHER PEDROZA M.D. Performed By: #### H S TROP, CMP, LACTIC, CBC, MG #### [address] Basophils/100 WBC (Bld) 0.2 % Normal . [facility] Comment on above: Order Comment: rn sa id to draw labs @0800 Performed By: #### H S TROP, CMP, LACTIC, CBC, MG #### [address] Eosinophils (Bld) [#/Vol] 0.0 10*3/uL Normal 0.0-0.45 [facility] Comment on above: Order Comment: rn sa id to draw labs @0800 Performed By: #### H S TROP, CMP, LACTIC, CBC, MG #### [address] Eosinophils/100 WBC (Bld) 0.0 % Normal . [facility] Comment on above: Order Comment: rn sa id to draw labs @0800 Performed By: #### H S TROP, CMP, LACTIC, CBC, MG #### [address] Erythrocyte distribution width (RBC) [Ratio] 16.2 % High 11.9-15.3 [facility] Comment on above: Order Comment: rn sa id to draw labs @0800 Performed By: #### H S TROP, CMP, LACTIC, CBC, MG #### [address] Hematocrit (Bld) [Volume fraction] 32.9 % Low 34.0-46.4 [facility] Comment on above: Order Comment: rn sa id to draw labs @0800 Performed By: #### H S TROP, CMP, LACTIC, CBC, MG #### [address] Hemoglobin (Bld) [Mass/Vol] 11.1 g/dL Low 11.8-15.4 [facility] Comment on above: Order Comment: rn sa id to draw labs @0800 Performed By: #### H S TROP, CMP, LACTIC, CBC, MG #### [address] Lymphocytes (Bld) [#/Vol] 1.0 10*3/uL Normal 1.00-4.8 [facility] Comment on above: Order Comment: rn sa id to draw labs @0800 Performed By: #### H S TROP, CMP, LACTIC, CBC, MG #### [address] Lymphocytes/100 WBC (Bld) 5.6 % Normal . [facility] Comment on above: Order Comment: rn sa id to draw labs @0800 Performed By: #### H S TROP, CMP, LACTIC, CBC, MG #### [address] MCH (RBC) [Entitic mass] 33.6 pg Normal 24.7-34.3 [facility] Comment on above: Order Comment: rn sa id to draw labs @0800 Performed By: #### H S TROP, CMP, LACTIC, CBC, MG #### [address] MCV (RBC) [Entitic vol] 99.2 fL Normal 80-100 [facility] Comment on above: Order Comment: rn sa id to draw labs @0800 Performed By: #### H S TROP, CMP, LACTIC, CBC, MG #### [address] Mean Corpuscular HGB Conc 33.8 g/dL Normal 32.0-35.0 [facility] Comment on above: Order Comment: rn sa id to draw labs @0800 Performed By: #### H S TROP, CMP, LACTIC, CBC, MG #### [address] Monocytes (Bld) [#/Vol] 0.5 10*3/uL Normal 0.0-0.8 [facility] Comment on above: Order Comment: rn sa id to draw labs @0800 Performed By: #### H S TROP, CMP, LACTIC, CBC, MG #### [address] Monocytes/100 WBC (Bld) 3.0 % Normal . [facility] Comment on above: Order Comment: rn sa id to draw labs @0800 Performed By: #### H S TROP, CMP, LACTIC, CBC, MG #### [place] [address] [place] Neutrophils (Bld) [#/Vol] 16.8 10*3/uL High 1.8-7.7 [facility] Comment on above: Order Comment: rn sa id to draw labs @0800 Performed By: #### H S TROP, CMP, LACTIC, CBC, MG #### [address] Neutrophils/100 WBC (Bld) 91.2 % Normal . [facility] Comment on above: Order Comment: rn sa id to draw labs @0800 Performed By: #### H S TROP, CMP, LACTIC, CBC, MG #### [facility] [address] NRBC% 0.0 /100{WBC} Normal 0-0.5 [facility] Comment on above: Order Comment: rn sa id to draw labs @0800 Performed By: #### H S TROP, CMP, LACTIC, CBC, MG #### [address] Platelet mean volume (Bld) [Entitic vol] 9.4 fL Normal 6.3-10.7 [facility] Comment on above: Order Comment: rn sa id to draw labs @0800 Performed By: #### H S TROP, CMP, LACTIC, CBC, MG #### [facility] [address] [place] [address] [place] Platelets (Bld) [#/Vol] 149 10*3/uL Low 150-450 [facility] Comment on above: Order Comment: rn sa id to draw labs @0800 Performed By: #### H S TROP, CMP, LACTIC, CBC, MG #### [facility] [address] [place] [address] [place] RBC (Bld) [#/Vol] 3.31 10*6/uL Low 3.60-5.00 [facility] Comment on above: Order Comment: rn sa id to draw labs @0800 Performed By: #### H S TROP, CMP, LACTIC, CBC, MG #### [facility] [address] [place] [address] [place] WBC (Bld) [#/Vol] 18.4 10*3/uL High 3.8-11.6 [facility] Comment on above: Order Comment: rn sa id to draw labs @0800 Performed By: #### H S TROP, CMP, LACTIC, CBC, MG #### [address] White Blood Count 18.4 [CFU]/mL High 3.8-11.6 [facility] Comment on above: Order Comment: rn sa id to draw labs @0800 Performed By: #### H S TROP, CMP, LACTIC, CBC, MG #### [address] Comprehensive Metabolic Pane jerrell 09-29-2024 Albumin [Mass/Vol] 2.8 g/dL Low 3.5-5.7 [facility] Comment on above: Order Comment: rn sa id to draw labs @0800 Performed By: #### H S TROP, CMP, LACTIC, CBC, MG #### [address] Albumin/Globulin [Mass ratio] 1.0 {ratio} Normal [facility] Comment on above: Order Comment: rn sa id to draw labs @0800 Performed By: #### H S TROP, CMP, LACTIC, CBC, MG #### [address] ALP [Catalytic activity/Vol] 55 U/L Normal 34-104 [facility] Comment on above: Order Comment: rn sa id to draw labs @0800 Performed By: #### H S TROP, CMP, LACTIC, CBC, MG #### [address] ALT [Catalytic activity/Vol] 23 U/L Normal 7-52 [facility] Comment on above: Order Comment: rn sa id to draw labs @0800 Performed By: #### H S TROP, CMP, LACTIC, CBC, MG #### [address] Anion gap [Moles/Vol] 10.1 mmol/L Normal 6.0-15.0 [facility] Comment on above: Order Comment: rn sa id to draw labs @0800 Performed By: #### H S TROP, CMP, LACTIC, CBC, MG #### [facility] [address] [place] [address] AST [Catalytic activity/Vol] 44 U/L High 13-39 [facility] Comment on above: Order Comment: rn sa id to draw labs @0800 Performed By: #### H S TROP, CMP, LACTIC, CBC, MG #### [address] Bilirubin [Mass/Vol] 0.6 mg/dL Normal 0.3-1.0 [facility] Comment on above: Order Comment: rn sa id to draw labs @0800 Performed By: #### H S TROP, CMP, LACTIC, CBC, MG #### [address] Calcium [Mass/Vol] 8.0 mg/dL Low 8.6-10.3 [facility] Comment on above: Order Comment: rn sa id to draw labs @0800 Performed By: #### H S TROP, CMP, LACTIC, CBC, MG #### [address] Chloride [Moles/Vol] 98 mmol/L Normal 98-107 [facility] Comment on above: Order Comment: rn sa id to draw labs @0800 Performed By: #### H S TROP, CMP, LACTIC, CBC, MG #### [facility] [address] [place] [address] [place] CO2 [Moles/Vol] 22.6 mmol/L Normal 21.0-31.0 [facility] Comment on above: Order Comment: rn sa id to draw labs @0800 Performed By: #### H S TROP, CMP, LACTIC, CBC, MG #### [facility] [address] [place] [address] Creatinine [Mass/Vol] 0.68 mg/dL Abnormal 0.60-1.20 [facility] Comment on above: Order Comment: rn sa id to draw labs @0800 Performed By: #### H S TROP, CMP, LACTIC, CBC, MG #### [facility] [address] Creatinine Clr Calc Pharmacy 96.33 Normal [facility] Comment on above: Order Comment: rn sa id to draw labs @0800 Performed By: #### H S TROP, CMP, LACTIC, CBC, MG #### [facility] [address] [place] [id number] [place] GFR/1.73 sq M.predicted MDRD (S/P/Bld) [Vol rate/Area] mL/min/{1.73_m2} Normal [facility] Comment on above: Order Comment: rn sa id to draw labs @0800 Performed By: #### H S TROP, CMP, LACTIC, CBC, MG #### [facility] [address] Globulin (S) [Mass/Vol] 2.8 g/dL Normal [facility] Comment on above: Order Comment: rn sa id to draw labs @0800 Performed By: #### H S TROP, CMP, LACTIC, CBC, MG #### [facility] [address] Glucose [Mass/Vol] 165 mg/dL High 70-100 [facility] Comment on above: Order Comment: rn sa id to draw labs @0800 Result Comment: [place] Glucose Reference Range is dependent on time and content of last meal. Glucose of more than 200 mg/dL in a nonstressed, ambulatory subject supports the diagnosis of Diabetes Mellitus. ADA recommended reference range Performed By: #### H S TROP, CMP, LACTIC, CBC, MG #### [facility] [address] [place] [id number] [facility] Potassium [Moles/Vol] 3.7 mmol/L Normal 3.5-5.1 [facility] Comment on above: Order Comment: rn sa id to draw labs @0800 Performed By: #### H S TROP, CMP, LACTIC, CBC, MG #### [facility] [address] [place] [id number] [facility] Protein [Mass/Vol] 5.6 g/dL Low 6.4-8.9 [facility] Comment on above: Order Comment: rn sa id to draw labs @0800 Performed By: #### H S TROP, CMP, LACTIC, CBC, MG #### [facility] [address] Sodium [Moles/Vol] 127 mmol/L Low 136-145 [facility] Comment on above: Order Comment: rn sa id to draw labs @0800 Performed By: #### H S TROP, CMP, LACTIC, CBC, MG #### [facility] [address] Urea nitrogen [Mass/Vol] 18 mg/dL Normal 7-25 [facility] Comment on above: Order Comment: rn sa id to draw labs @0800 Performed By: #### H S TROP, CMP, LACTIC, CBC, MG #### [facility] [address] [facility] echo transthoracicon [facility] echo transthoracic [facility] [place] [address] [place] [address] Echocardiogram Signed Patient: Kaylynn Talamantes MR#: [id number] : 1960 Acct:[id number] Age/Sex: 64 / F ADM Date: 09/28/24 Loc: Room: [address] [place] [address] Type: ADM IN Attending Dr: Ingris Lopez MD Ordering Provider: Ray Joaquin MD Date of Service: 09/29/2403/25/1199 [facility] echo transthoracic: elevated troponin Copies to: MD Ray Elizalde MD [facility], T BSA: 2.0 m2 BP: 103/59 mmHg HR: 78 Reason For Study: elevated troponin History: Asthma HTN Vert Interpretation Summary Ejection Fraction = 55-60%. Poor quality images, however no wall motion abnormalities noted. A variety of Doppler measurements indicate normal left ventricular diastolic function. Mild concentric left ventricular hypertrophy. The left atrial volume is mildly increased. There is mild mitral regurgitation. There is no comparison study available. Procedure/Quality: A two-dimensional transthoracic echocardiogram with color flow, Doppler and injection of contrast agent Definity was performed. The study was technically suboptimal in quality due to poor acoustic windows . Left Ventricle: The left ventricular size is normal. Mild concentric left ventricular hypertrophy. Ejection Fraction = 55-60%. A variety of Doppler measurements indicate normal left ventricular diastolic function. Poor quality images, however no wall motion abnormalities noted. Left Atrium: The left atrial volume is mildly increased. Right Atrium: The right atrium appears normal in size. Right Ventricle: The right ventricle is normal in size and function. Aortic Valve: The aortic valve is normal in structure. No hemodynamically significant valvular aortic stenosis. No aortic regurgitation is present. Mitral Valve: The mitral valve is normal in structure. No significant mitral valve stenosis. There is mild mitral regurgitation. Tricuspid Valve: The tricuspid valve is normal in structure. No tricuspid regurgitation. Pulmonic Valve: The pulmonic valve is not well visualized. Mild pulmonic valvular regurgitation. Arteries: The aortic root is normal size. Pericardium/Pleura: No pericardial effusion seen. IVC/Hepatic Veins: The inferior vena cava is normal in size, with a normal collapsibility index. Measurements with Normals IVSd: 1.2 cm (0.7-1.1 cm)LVIDd: 5.3 cm (3.7-5.4 cm) LVPWd: 1.2 cm (0.7-1.1 cm)LVIDs: 3.7 cm (2.3-3.6 cm) LA dimension: 4.4 cm (2.3-4.0 cm)Ao root diam: 2.7 cm(2.0-3.6 cm) asc Aorta Diam: 2.9 cm(2.1-3.4cm) Doppler with Normals RVSP(TR): 32.4 mmHg (18-35mmHg) LV V1 max: 110.0 cm/sec (0.7-1.7m/s)MV E max john: 125.0 cm/sec(0.8-1.3m/s) MV A max john: 135.0 cm/sec(0.0-0.0m/s) MV E/A: 0.93 (<1.5) MMode/2D Measurements Calculations TAPSE: 2.4 cm RV Base: 4.1 cm FS: 30.2 % Ao root area: RV S John: RV Mid: 3.6 cm EDV(Teich): 135.3 ml 5.7 cm2 11.7 cm/sec RV Length: 6.3 cm ESV(Teich): 58.1 ml EF(Teich): 57.1 % __ LVOT diam: 2.0 cm LVLd ap4: 7.6 cm SV(MOD-sp4): 82.0 ml LAV(MOD-sp4): LVOT area: 3.1 cm2 EDV(MOD-sp4): 60.2 ml 134.0 ml LAV(MOD-sp2): LVLs ap4: 5.8 cm 64.0 ml ESV(MOD-sp4): 52.0 ml EF(MOD-sp4): 61.2 % __ LA A2 area: 21.3 cm2RA Volume: 54.7 ml RA Volume Index: LA A4 area: 21.6 cm2 26.9 ml/m2 LA length (vol): 6.1 cm LA vol: 64.2 ml LA vol index: 31.6 ml/m2 Doppler Measurements Calculations MV dec time: MV V2 max: E/E' lat: 10.5 Ao V2 max: 0.18 sec 140.0 cm/sec E/E' med: 10.5 168.0 cm/sec MV max P.0 mmHg Ao max P.3 mmHg MV V2 mean: Ao mean P.0 mmHg 76.1 cm/sec Ao V2 mean: MV mean P.0 mmHg 117.0 cm/sec MV V2 VTI: 46.7 cm Ao V2 VTI: 36.5 cm MVA(VTI): 1.5 cm2 AUNDREA(I,D): 1.9 cm2 UANDREA(V,D): 2.1 cm2 __ LV V1 max PG: MR max john: TV max PG: TR max john: 4.8 mmHg 398.0 cm/sec 29.0 mmHg 271.0 cm/sec LV V1 mean PG: MR max P.4 mmHg TR max P.4 mmHg 2.0 mmHg RAP systole: LV V1 mean: 3.0 mmHg 69.6 cm/sec LV V1 VTI: 21.6 cm Transcribed By: ANICETO Performed At: 09/29/24 1354 Signed By: Joel Barlow MD 09/29/24 1659 Normal [facility] Glucose Poct Glucometerson 0 09-29-2024 Glucose [Mass/Vol] 235 mg/dL Normal [facility] Comment on above: Result Comment: [place] Glucose Reference Range is dependent on time and content of last meal. Glucose of more than 200 mg/dL in a nonstressed, ambulatory subject supports the diagnosis of Diabetes Mellitus. PERFORMED BY: [place] [address] PATHOLOGIST PUBLIC RELATIONS COUNSELOR CHRISTOPHER PEDROZA M.D. Performed By: #### H S TROP, CMP, LACTIC, CBC, MG #### [address] Glucose [Mass/Vol] 276 mg/dL Normal [facility] Comment on above: Result Comment: [place] Glucose Reference Range is dependent on time and content of last meal. Glucose of more than 200 mg/dL in a nonstressed, ambulatory subject supports the diagnosis of Diabetes Mellitus. PERFORMED BY: [place] [phone] PATHOLOGIST PUBLIC RELATIONS COUNSELOR CHRISTOPHER PEDROZA M.D. Performed By: #### G LULS #### Point of Care testing , Lactic Acidon 09-29-2024 Lactate [Moles/Vol] 1.2 mmol/L Normal 0.5-1.9 [facility] Comment on above: Order Comment: layton pérez id to draw labs @0800 Result Comment: Lact ic Acid reference range has been updated to 0.5 ? 1.9 mmol/L and the critical range of 2.0 or greater. PERFORMED BY: [place] [phone] PATHOLOGIST PUBLIC RELATIONS COUNSELOR CHRISTOPHER PEDROZA M.D. Performed By: #### H S TROP, CMP, LACTIC, CBC, MG #### [place] [address] [place] Magnesiumon 09-29-2024 Magnesium [Mass/Vol] 2.1 mg/dL Normal 1.9-2.7 [facility] Comment on above: Order Comment: layton pérez id to draw labs @0800 Result Comment: PERF ORMED BY: [place] [address] PATHOLOGIST PUBLIC RELATIONS COUNSELOR CHRISTOPHER PEDROZA M.D. Performed By: #### H S TROP, CMP, LACTIC, CBC, MG #### [address] Troponin I High Sensitivityo n 09-29-2024 Troponin I High Sensitivity 123 Off scale high 0-15 [facility] Comment on above: Order Comment: layton pérez id to draw labs @0800 Result Comment: Crit ical Result : Called to and read back by: GET CHANDRA at: 09/29/2024 06:05:32 by:TASNEEM The Troponin units of report have been changed to meet the Chest Pain Accreditation requirement, element EC5.M1l2. Troponin units are changed from pg/ml to ng/L. Also, the decimal is removed and results are in whole numbers. PERFORMED BY: [place] [address] PATHOLOGIST PUBLIC RELATIONS COUNSELOR CHRISTOPHER PEDROZA M.D. Performed By: #### H S TROP, CMP, LACTIC, CBC, MG #### [place] [id number] [place] Alanine aminotransferase [En zymatic activity/volume] in Serum or PlasmaOrdered By: Nisha Gloria on 09-28-2024 ALT [Catalytic activity/Vol] 13 U/L Normal 7-52 [facility] Comment on above: Performed By: #### C MP, LIPASE #### [place] [address] [place] Albumin [Mass/volume] in Ser um or Plasma by Bromocresol green (BCG) dye binding methoOrdered By: Nisha Gloria on 09-28-2024 Albumin BCG dye [Mass/Vol] 3.0 g/dL Low 3.5-5.7 [facility] Alkaline phosphatase [Enzyma tic activity/volume] in Serum or PlasmaOrdered By: Nisha Gloria on 09-28-2024 ALP [Catalytic activity/Vol] 55 U/L Normal 34-104 [facility] Comment on above: Performed By: #### C MP, LIPASE #### [facility] [address] Aspartate aminotransferase [ Enzymatic activity/volume] in Serum or PlasmaOrdered By: Nisha Gloria on 09-28-2024 AST [Catalytic activity/Vol] 30 U/L Normal 13-39 [facility] Comment on above: Performed By: #### C MP, LIPASE #### [address] BNP ser/plasOrdered By: Andrea Gloria on 09-28-2024 Natriuretic peptide B (Bld) [Mass/Vol] 420.0 pg/mL High 5-100 [facility] Comment on above: Result Comment: PERF ORMED BY: [place] [address] PATHOLOGIST PUBLIC RELATIONS COUNSELOR CHRISTOPHER PEDROZA M.D. Performed By: #### H S TROP, CMP, LACTIC, CBC, MG #### [address] Basophils [#/volume] in Bloo d by Automated countOrdered By: Nisha Gloria on 09-28-2024 Basophils (Bld) [#/Vol] 0.1 10*3/uL Normal 0.0-0.2 [facility] Comment on above: Result Comment: PERF ORMED BY: [place] [address] PATHOLOGIST PUBLIC RELATIONS COUNSELOR CHRISTOPHER PEDROZA M.D. Performed By: #### H S TROP, CMP, LACTIC, CBC, MG #### [facility] [address] [place] [address] [place] Basophils/100 leukocytes in Blood by Automated countOrdered By: Nisha Gloria on 09-28-2024 Basophils/100 WBC (Bld) 0.6 % Normal . [facility] Comment on above: Performed By: #### H S TROP, CMP, LACTIC, CBC, MG #### [address] Bilirubin.total [Mass/volume ] in Serum or PlasmaOrdered By: Nisha Gloria on 09-28-2024 Bilirubin [Mass/Vol] 0.8 mg/dL Normal 0.3-1.0 [facility] Comment on above: Performed By: #### C MP, LIPASE #### [address] BioFire Not Detectedon 09-28 BioFire Not Detected Not detected Normal Not Detecte [facility] Comment on above: Result Comment: This is a duplicate RP2.1 COVID (PCR) result to be used for statistical tracking purpose only. PERFORMED BY: [place] [address] PATHOLOGIST PUBLIC RELATIONS COUNSELOR CHRISTOPHER PEDROZA M.D. Performed By: #### C MP, LIPASE #### [address] Blood Cultureon 09-28-2024 Bacteria identified Cx Nom (Bld) NO GROWTH 5 DAYS PERFORMED BY: [place] [address] PATHOLOGIST PUBLIC RELATIONS COUNSELOR CHRISTOPHER PEDROZA M.D. Normal [facility] Comment on above: Performed By: #### H S TROP, CMP, LACTIC, CBC, MG #### [address] Bacteria identified Cx Nom (Bld) Gram stain results called at 0554 on 10/02/24 A review of the gram stain indicated Gram Positive Cocci. The original gram stain reported as Gram Positive Bacilli has been revised. Gram Stain Gram Positive Cocci ORGANISM: Gram Positive Cocci (O:GPC) Organism Comments . Send Test to Ref. Lab Sent to [facility] for ID/RC Gram positive coccobacilli The organism isolated most closely resembles the identity indicated above. Unable to further identify by routine methods. If clinically relevant, notify lab within 1 week to request identification by molecular sequencing at an additional charge. Performed at: [address] [id number] [place] Tender: Roscoe Nino PhD, Phone: [phone] PERFORMED BY: [place] [id number] PATHOLOGIST PUBLIC RELATIONS COUNSELOR CHRISTOPHER PEDROZA M.D. Normal [facility] Comment on above: Performed By: #### H S TROP, CMP, LACTIC, CBC, MG #### [place] [id number] [facility] COVID-19 Detected/Not Detect edOrdered By: Nisha Gloria on 09-28-2024 SARS-CoV-2 (COVID-19) RNA SUSANA+non-probe Ql (Nph) Not detected Not Detecte [facility] Comment on above: This is a duplicate RP2.1 COVID (PCR) result to be used for statistical tracking purpose only. CT angio chest PE protocolon 09-28-2024 CT angio chest PE protocol [facility] [place] [address] [place], [place] [id number] CT Scan Report Signed Patient: Kaylynn Talamantes MR#: [id number] : 1960 Acct:[id number] Age/Sex: 64 / F ADM Date: 09/28/24 Loc: ER Room: Type: [facility] ER Attending Dr: Copies to: Nisha Gloria MD Ordering Provider: Nisha Gloria MD Date of Service: 09/28/24 CT/CT angio chest PE protocol: tachy, recent surg, r/o pe ([id number]) CT/CT abdomen pelvis w con: tachy, recent surg, r/o pe CT abdomen pelvis w con, CT angio chest PE protocol 09/28/2024 9:56 AM SIGN AND SYMPTOMS: tachy, shortness of breath, recent carotid endarterectomy, r/o pe CONTRAST: 90 mL of intravenous Isovue-370 TECHNIQUE: Multidetector CT axial slices of the chest, abdomen and pelvis were obtainedwith IV contrast. Multiplanar and 3-D reformats were performed and viewed on a separate workstation and reviewed to further define anatomy and possible pathology. CT was performed with one or more of the following dose reduction techniques: Automated exposure control, adjustment of the mA and/or kV according to patient size, or use of iterative reconstruction technique. COMPARISON: None. FINDINGS: Lower neck: Thyroid gland within normal limits, no supraclavicle adenopathy. Vessels: Atherosclerotic changes are noted in the thoracic aorta and origins of the great vessels. There is no pulmonary embolism. Mediastinum and Brandy: Mildly prominent mediastinal lymph nodes are noted measuring up to 14 mm in short axis. Heart: Normal size. No pericardial effusion. Airways: Within normal limits Lungs: Relatively diffuse bilateral areas of groundglass attenuation are noted which may be infectious or inflammatory. Pleura: There is a small right-sided pleural effusion. Chest Wall: There is a sebaceous cyst in the subcutaneous soft tissues posteriorly measuring 2.5 cm in greatest dimension. Abdomen: Liver: within normal limits. Bile Ducts: Normal caliber. Gallbladder: Previously removed Pancreas: within normal limits. Spleen: within normal limits. Adrenals: within normal limits. Kidneys: Simple cysts are noted in the right renal cortex requiring no further follow-up. Pelvis: Reproductive Organs: No pelvic masses. Ureters: within normal limits. Bladder: within normal limits. Bowel: There are uncomplicated colonic diverticula. There is no evidence of bowel obstruction. There is a normal appendix in the right lower quadrant. Mesenteric Lymph Nodes: No enlarged mesenteric lymph nodes. Peritoneum: No ascites or free air, no fluid collection. Vessels: Atherosclerotic changes are noted in the abdominal aorta and its branches.. Retroperitoneum: within normal limits. Abdominal Wall: There is a fat-containing periumbilical hernia. Bones: Degenerative changes are noted in the thoracolumbar spine. CT/CT abdomen pelvis w con IMPRESSION: Relatively diffuse bilateral areas of groundglass attenuation are noted which may be infectious or inflammatory. There is a small right-sided pleural effusion. There is no evidence of pulmonary embolism. No acute intra-abdominal pathology. Impression dictated by: Giovanni Pires M.D. 09/28/2024 10:30 AM Dictation Location: [place] [address] Transcribed By: [facility] 09/28/24 1030 Dictated By: Giovanni Pires II, MD 09/28/24 1018 Signed By: 09/28/24 1030 Normal [facility] Calcium [Mass/volume] in Ser um or PlasmaOrdered By: Nisha Gloria on 09-28-2024 Calcium [Mass/Vol] 8.1 mg/dL Low 8.6-10.3 [facility] Comment on above: Performed By: #### C MP, LIPASE #### [address] Carbon dioxide, total [Moles /volume] in Serum or PlasmaOrdered By: Nisha Gloria on 09-28-2024 CO2 [Moles/Vol] 21.8 mmol/L Normal 21.0-31.0 [facility] Comment on above: Performed By: #### C MP, LIPASE #### [address] Chloride [Moles/volume] in S loraine or PlasmaOrdered By: Nisha Gloria on 09-28-2024 Chloride [Moles/Vol] 95 mmol/L Low 98-107 [facility] Comment on above: Performed By: #### C MP, LIPASE #### [address] Complete Blood Count Auto Di ffon 09-28-2024 Mean Corpuscular HGB Conc 33.8 g/dL Normal 32.0-35.0 [facility] Comment on above: Performed By: #### H S TROP, CMP, LACTIC, CBC, MG #### [address] Monocytes/100 WBC (Bld) 23.18 % High 0.00-20.00 [facility] Comment on above: Result Comment: For adults in ED, MDW > 20.0 may be associated with a higher risk of sepsis during the first 12 hrs of hospital admission Performed By: #### H S TROP, CMP, LACTIC, CBC, MG #### [address] NRBC% 0.1 /100{WBC} Normal 0-0.5 [facility] Comment on above: Performed By: #### H S TROP, CMP, LACTIC, CBC, MG #### [address] White Blood Count 18.3 [CFU]/mL High 3.8-11.6 [facility] Comment on above: Performed By: #### H S TROP, CMP, LACTIC, CBC, MG #### [address] Comprehensive Metabolic Pane jerrell 09-28-2024 Albumin [Mass/Vol] 3.0 g/dL Low 3.5-5.7 [facility] Comment on above: Performed By: #### C MP, LIPASE #### [address] Creatinine Clr Calc Pharmacy 52.83 Normal [facility] Comment on above: Performed By: #### C MP, LIPASE #### [address] GFR/1.73 sq M.predicted MDRD (S/P/Bld) [Vol rate/Area] 48.901 mL/min/{1.73_m2} Normal [facility] Comment on above: Performed By: #### C MP, LIPASE #### [address] Creatinine [Mass/volume] in Serum or PlasmaOrdered By: Nisha Gloria on 09-28-2024 Creatinine [Mass/Vol] 1.24 mg/dL High 0.60-1.20 [facility] Comment on above: Performed By: #### C MP, LIPASE #### [address] Dipstick and Microscopicon 0 09-28-2024 Bacteria,Urine None Seen Normal None Seen [facility] Comment on above: Order Comment: Name Collection Type:: Clean-Voided Midstream Performed By: #### C MP, LIPASE #### [address] Hyaline Casts,Urine None Normal 0-8 [facility] Comment on above: Order Comment: Name Collection Type:: Clean-Voided Midstream Performed By: #### C MP, LIPASE #### [address] Mucus,Urine Rare Normal [facility] Comment on above: Order Comment: Name Collection Type:: Clean-Voided Midstream Result Comment: PERF ORMED BY: [place] [address] PATHOLOGIST PUBLIC RELATIONS COUNSELOR CHRISTOPHER PEDROZA M.D. Performed By: #### C MP, LIPASE #### [address] RBC,Urine 10-19 Normal 0-4 [facility] Comment on above: Order Comment: Name Collection Type:: Clean-Voided Midstream Performed By: #### C MP, LIPASE #### [address] Squamous Epithelial Cell,Urine 1-2 Normal 0-2 [facility] Comment on above: Order Comment: Name Collection Type:: Clean-Voided Midstream Performed By: #### C MP, LIPASE #### [address] WBC,Urine 3-4 Normal 0-4 [facility] Comment on above: Order Comment: Name Collection Type:: Clean-Voided Midstream Performed By: #### C MP, LIPASE #### [address] ECG 12 lead ECGon 09-28-2024 ECG 12 lead ECG [facility] [place] [address] [place] [address] Electrocardiograph Report Signed Patient: Kaylynn Talamantes MR#: [id number] : 1960 Acct:[id number] Age/Sex: 64 / F ADM Date: 09/28/24 Loc: Room: [address] [place] [address] Type: DIS IN Attending Dr: Ingris Lopez MD Ordering Provider: Pedro Luis Roper MD Date of Service: 09/28/24 ECG/ECG 12 lead ECG: prn ekg Copies to: Test Reason : Blood Pressure : */* mmHG Vent. Rate : 90 BPM Atrial Rate : 90 BPM P-R Int : 132 ms QRS Dur : 86 ms QT Int : 374 ms P-R-T Axes : 38 89 31 degrees QTcB Int : 457 ms Normal sinus rhythm Possible Anterior infarct (cited on or before 28-Sep-2024) Abnormal ECG Confirmed by Sanaz Almanzar ([id number]) on 10/06/2024 8:45:01 PM Referred By: Electronically Signed By: Sanaz Almanzar Transcribed By: MUS Signed By Sanaz Almanzar MD 2044 Normal [facility] ECG 12 lead ECG [place] [id number] Electrocardiograph Report Signed Patient: Kaylynn Talamantes MR#: [id number] : 1960 Acct:[id number] Age/Sex: 64 / F ADM Date: 09/28/24 Loc: Room: [address] [place] [address] Type: ADM IN Attending Dr: Pedro Luis Roper MD Ordering Provider: Nisha Gloria MD Date of Service: 09/28/24 ECG/ECG 12 lead ECG: Shortness of Breath/Dyspnea Copies to: Test Reason : Blood Pressure : */* mmHG Vent. Rate : 92 BPM Atrial Rate : 92 BPM P-R Int : 124 ms QRS Dur : 86 ms QT Int : 352 ms P-R-T Axes : 42 103 31 degrees QTcB Int : 435 ms Normal sinus rhythm Confirmed by Nisha Gloria MD ([id number]) on 09/28/2024 3:26:50 PM Referred By: Electronically Signed By: Nisha Gloria MD Transcribed By: MUS Signed By Nisha Gloria MD 08/31 Normal [facility] ECG 12 lead ECG [address] [address] Electrocardiograph Report Signed Patient: Kaylynn Talamantes MR#: [id number] : 1960 Acct:[id number] Age/Sex: 64 / F ADM Date: 09/28/24 Loc: 4C Room: [address] [place] [address] Type: ADM IN Attending Dr: Pedro Luis Roper MD Ordering Provider: Nisha Gloria MD Date of Service: 09/28/24 ECG/ECG 12 lead ECG: Shortness of Breath/Dyspnea Copies to: Test Reason : Blood Pressure : 135/60 mmHG Vent. Rate : 103 BPM Atrial Rate : 103 BPM P-R Int : 116 ms QRS Dur : 82 ms QT Int : 320 ms P-R-T Axes : 39 110 47 degrees QTcB Int : 419 ms Sinus tachycardia Right axis deviation Confirmed by Nisha Gloria MD ([id number]) on 09/28/2024 3:26:34 PM Referred By: Electronically Signed By: Nisha Gloria MD Transcribed By: MUS Signed By Nisha Gloria MD 08/31 03/25 1526 Normal [facility] Eosinophils [#/volume] in Bl ood by Automated countOrdered By: Nisha Gloria on 09-28-2024 Eosinophils (Bld) [#/Vol] 0.0 10*3/uL Normal 0.0-0.45 [facility] Comment on above: Performed By: #### H S TROP, CMP, LACTIC, CBC, MG #### [facility] [address] [place] [address] Eosinophils/100 leukocytes i n Blood by Automated countOrdered By: Nisha Gloria on 09-28-2024 Eosinophils/100 WBC (Bld) 0.1 % Normal . [facility] Comment on above: Performed By: #### H S TROP, CMP, LACTIC, CBC, MG #### [facility] [address] [place] [address] [place] Erythrocyte distribution wid th [Ratio] by Automated countOrdered By: Nisha Gloria on 09-28-2024 Erythrocyte distribution width (RBC) [Ratio] 16.7 % High 11.9-15.3 [facility] Comment on above: Performed By: #### H S TROP, CMP, LACTIC, CBC, MG #### [facility] [address] [place] [address] [place] Erythrocytes [#/volume] in B lood by Automated countOrdered By: Nisha Gloria on 09-28-2024 RBC (Bld) [#/Vol] 3.88 10*6/uL Normal 3.60-5.00 [facility] Comment on above: Performed By: #### H S TROP, CMP, LACTIC, CBC, MG #### [facility] [address] [place] [address] [place] Glucose [Mass/volume] in Ser um or PlasmaOrdered By: Nisha Gloria on 09-28-2024 Glucose [Mass/Vol] 196 mg/dL High 70-100 [facility] Comment on above: ADA recommended refe rence rangeRandom Glucose Reference Range is dependent on time and content of last meal. Glucose of more than 200 mg/dL in a nonstressed, ambulatory subject supports the diagnosis of Diabetes Mellitus. Result Comment: [place] om Glucose Reference Range is dependent on time and content of last meal. Glucose of more than 200 mg/dL in a nonstressed, ambulatory subject supports the diagnosis of Diabetes Mellitus. ADA recommended reference range Performed By: #### C MP, LIPASE #### [facility] [address] [place] [address] [place] Hematocrit [Volume Fraction] of Blood by Automated countOrdered By: Nisha Gloria on 09-28-2024 Hematocrit (Bld) [Volume fraction] 38.5 % Normal 34.0-46.4 [facility] Comment on above: Performed By: #### H S TROP, CMP, LACTIC, CBC, MG #### [facility] [address] Hemoglobin [Mass/volume] in BloodOrdered By: Nisha Gloria on 09-28-2024 Hemoglobin (Bld) [Mass/Vol] 13.0 g/dL Normal 11.8-15.4 [facility] Comment on above: Performed By: #### H S TROP, CMP, LACTIC, CBC, MG #### [facility] [address] [place] [address] [place] INR in Platelet poor plasma by Coagulation assayOrdered By: Nisha Gloria on 09-28-2024 INR Coag (PPP) [Relative time] 1.3 {INR} Normal [facility] Comment on above: INR Therapeutic Rang e A) Pre- and Peroperative OAT started two weeks before surgery. NOT HIP SURGERY: 1.5 - 2.5 HIP SURGERY: 2 - 3B) Primary and secondary prevention of venous THROMBOSIS: 2 - 3C) Active venous thrombosis, pulmonary embolismand prevention of recurrent venous thrombosis: 2 - 3D) Prevention of arterial thromboembolismincluding patients with mechanical heart valves: 3 - 4.5 Result Comment: INR Therapeutic Range A) Pre- and Peroperative OAT started two weeks before surgery. NOT HIP SURGERY: 1.5 - 2.5 HIP SURGERY: 2 - 3 B) Primary and secondary prevention of venous THROMBOSIS: 2 - 3 C) Active venous thrombosis, pulmonary embolism and prevention of recurrent venous thrombosis: 2 - 3 D) Prevention of arterial thromboembolism including patients with mechanical heart valves: 3 - 4.5 PERFORMED BY: [place] [address] PATHOLOGIST PUBLIC RELATIONS COUNSELOR CHRISTOPHER PEDROZA M.D. Performed By: #### H S TROP, CMP, LACTIC, CBC, MG #### [facility] [address] [place], [place] [id number] [facility] Lactate [Moles/volume] in Se rum or PlasmaOrdered By: Nisha Gloria on 09-28-2024 Lactate [Moles/Vol] 3.4 mmol/L Off scale high 0.5-1.9 [facility] Comment on above: Critical Result : Ca lled to and read back by: ZACH OVALLE at: 09/28/2024 09:35:09 by:[id number] Acid reference range has been updated to 0.5 1.9 mmol/L and the critical range of 2.0 or greater. Result Comment: Crit ical Result : Called to and read back by: ZACH OVALLE at: 09/28/2024 09:35:09 by:[id number] Lactic Acid reference range has been updated to 0.5 ? 1.9 mmol/L and the critical range of 2.0 or greater. PERFORMED BY: [place] [id number] PATHOLOGIST PUBLIC RELATIONS COUNSELOR CHRISTOPHER PEDROZA M.D. Performed By: #### H S TROP, CMP, LACTIC, CBC, MG #### [facility] [address] [place], [place] [id number] [facility] Lactic Acid Reflexon 025 Lactic Acid Reflex 1.1 mmol/L Normal 0.5-1.9 [facility] Comment on above: Result Comment: Lact ic Acid reference range has been updated to 0.5 ? 1.9 mmol/L and the critical range of 2.0 or greater. PERFORMED BY: [place] [address] PATHOLOGIST PUBLIC RELATIONS COUNSELOR CHRISTOPHER PEDROZA M.D. Performed By: #### H S TROP, CMP, LACTIC, CBC, MG #### [address] Leukocytes [#/volume] correc giovanna for nucleated erythrocytes in Blood by Automated counOrdered By: Nisha Gloria on 09-28-2024 WBC corrected for nucl RBC Auto (Bld) [#/Vol] 18.3 10*3/uL High 3.8-11.6 [facility] Leukocytes [#/volume] in Blo od by Automated countOrdered By: Nisha Gloria on 09-28-2024 WBC (Bld) [#/Vol] 18.3 10*3/uL High 3.8-11.6 [facility] Comment on above: Performed By: #### H S TROP, CMP, LACTIC, CBC, MG #### [address] Lipase [Enzymatic activity/v olume] in Serum or PlasmaOrdered By: Nisha Gloria on 09-28-2024 Lipase [Catalytic activity/Vol] 6.0 U/L Low 11.0-82.0 [facility] Comment on above: Result Comment: PERF ORMED BY: [place] [address] PATHOLOGIST PUBLIC RELATIONS COUNSELOR CHRISTOPHER PEDROZA M.D. Performed By: #### C MP, LIPASE #### [address] Lymphocytes [#/volume] in Bl ood by Automated countOrdered By: Nisha Gloria on 09-28-2024 Lymphocytes (Bld) [#/Vol] 1.9 10*3/uL Normal 1.00-4.8 [facility] Comment on above: Performed By: #### H S TROP, CMP, LACTIC, CBC, MG #### [address] Lymphocytes/100 leukocytes i n Blood by Automated countOrdered By: Nisha Gloria on 09-28-2024 Lymphocytes/100 WBC (Bld) 10.3 % Normal . [facility] Comment on above: Performed By: #### H S TROP, CMP, LACTIC, CBC, MG #### [facility] [address] MCH [Entitic mass] by Automa giovanna countOrdered By: Nisha Gloria on 09-28-2024 MCH (RBC) [Entitic mass] 33.5 pg Normal 24.7-34.3 [facility] Comment on above: Performed By: #### H S TROP, CMP, LACTIC, CBC, MG #### [facility] [address] MCHC Auto (RBC) [Mass/Vol]Or dered By: Nisha Gloria on 09-28-2024 MCHC (RBC) [Mass/Vol] 33.8 g/dL 32.0-35.0 [facility] MCV [Entitic volume] by Auto mated countOrdered By: Nisha Gloria on 09-28-2024 MCV (RBC) [Entitic vol] 99.3 fL Normal 80-100 [facility] Comment on above: Performed By: #### H S TROP, CMP, LACTIC, CBC, MG #### [facility] [address] [place] [address] MRSA - MSSA Nasal PCRon 08-31 MRSA - MSSA Nasal PCR MRSA Result MRSA Negative MSSA Result MSSA Negative Real-time PCR Test performed by real-time PCR Reference Range Reference Range for all targets = Neg / Not Detected Reference Note 20 -- Reference Note 26 -- PERFORMED BY: [place] [address] PATHOLOGIST PUBLIC RELATIONS COUNSELOR CHRISTOPHER PEDROZA M.D. Normal [facility] Comment on above: Performed By: #### H S TROP, CMP, LACTIC, CBC, MG #### [place] [address] [place] Monocyte distribution width [Entitic volume] in Blood by AutomatedOrdered By: Nisha Gloria on 09-28-2024 Monocyte distribution width Auto (Bld) [Entitic vol] 23.18 % High 0.00-20.00 [facility] Comment on above: For adults in ED, MD W > 20.0 may be associated with a higher risk of sepsis during the first 12 hrs of hospital admission Monocytes [#/volume] in Bloo d by Automated countOrdered By: Nisha Gloria on 09-28-2024 Monocytes (Bld) [#/Vol] 1.2 10*3/uL High 0.0-0.8 [facility] Comment on above: Performed By: #### H S TROP, CMP, LACTIC, CBC, MG #### [place] [address] [place] Monocytes/100 leukocytes in Blood by Automated countOrdered By: Nisha Gloria on 09-28-2024 Monocytes/100 WBC (Bld) 6.8 % Normal . [facility] Comment on above: Performed By: #### H S TROP, CMP, LACTIC, CBC, MG #### [place] [address] [place] Neutrophils [#/volume] in Bl ood by Automated countOrdered By: Nisha Gloria on 09-28-2024 Neutrophils (Bld) [#/Vol] 15.0 10*3/uL High 1.8-7.7 [facility] Comment on above: Performed By: #### H S TROP, CMP, LACTIC, CBC, MG #### [facility] [address] [place] [address] [place] Neutrophils/100 leukocytes i n Blood by Automated countOrdered By: Nisha Gloria on 09-28-2024 Neutrophils/100 WBC (Bld) 82.2 % Normal . [facility] Comment on above: Performed By: #### H S TROP, CMP, LACTIC, CBC, MG #### [address] No Panel InformationOrdered By: Nisha Gloria on 09-28-2024 Estimated GFR (CKD-EPI) 48.901 mL/Min [facility] Creatinine Clearance (Chem 52.83 [facility] Nucleated erythrocytes [Pres ence] in Blood by Automated countOrdered By: Nisha Gloria on 09-28-2024 Nucleated RBC Auto Ql (Bld) 0.1 /100{WBC} 0-0.5 [facility] Platelet mean volume [Entiti c volume] in Blood by Automated countOrdered By: Nisha Gloria on 09-28-2024 Platelet mean volume (Bld) [Entitic vol] 9.3 fL Normal 6.3-10.7 [facility] Comment on above: Performed By: #### H S TROP, CMP, LACTIC, CBC, MG #### [address] Platelets [#/volume] in Bloo d by Automated countOrdered By: Nisha Gloria on 09-28-2024 Platelets (Bld) [#/Vol] 187 10*3/uL Normal 150-450 [facility] Comment on above: Performed By: #### H S TROP, CMP, LACTIC, CBC, MG #### [address] Potassium [Moles/volume] in Serum or PlasmaOrdered By: Nisha Gloria on 09-28-2024 Potassium [Moles/Vol] 3.3 mmol/L Low 3.5-5.1 [facility] Comment on above: Hemolysis is present at a level that could interfere with the result.Contact lab if redraw is required Result Comment: Hemo lysis is present at a level that could interfere with the result. Contact lab if redraw is required Performed By: #### C MP, LIPASE #### [address] Procalcitoninon 09-28-2024 Procalcitonin 1.04 ng/mL Normal 0.00-0.08 [facility] Comment on above: Order Comment: Comme nt add on if possible Result Comment: A pr ocalcitonin (PCT) level above 2.0 ng/mL on the first day of ICU admission is associated with a high risk for progression to severe sepsis and/or septic shock. A PCT level below 0.5 ng/mL on the first day of ICU admission is associated with a low risk for progression to severe sepsis and/or septic shock. Note: Concentrations <0.5 ng/mL do not exclude an infection, on account of localized infections (without systemic signs) which can be associated with such low concentrations, or a systemic infection in its initial stages (<6 hours). Furthermore, increased procalcitonin can occur without infection. PCT concentrations between 0.5 and 2.0 ng/mL should be interpreted taking into account the patient's history. It is recommended to retest PCT within 6-24 hours if any concentrations <2 ng/mL are obtained. Performed at: [facility] [address] [id number] [place] Tender: Roseann Weston MD, Phone: [phone] PERFORMED BY: [place] [address] PATHOLOGIST PUBLIC RELATIONS COUNSELOR CHRISTOPHER PEDROZA M.D. Performed By: #### C MP, LIPASE #### [address] Protein [Mass/volume] in Ser um or PlasmaOrdered By: Nisha Gloria on 09-28-2024 Protein [Mass/Vol] 6.0 g/dL Low 6.4-8.9 [facility] Comment on above: Performed By: #### C MP, LIPASE #### [address] Prothrombin time (PT)Ordered By: Nisha Gloria on 09-28-2024 PT Coag (PPP) [Time] 15.1 s High 9.0-12.9 [facility] Comment on above: A hematocrit value g reater than 55% may lead to inaccurate results in coagulation testing. Patients having hematocrit values >55% require a special collection tube for coagulation studies. Please contact the laboratory at [phone] for redraw instructions. Result Comment: A he matocrit value greater than 55% may lead to inaccurate results in coagulation testing. Patients having hematocrit values >55% require a special collection tube for coagulation studies. Please contact the laboratory at [phone] for redraw instructions. Performed By: #### H S TROP, CMP, LACTIC, CBC, MG #### [address] Respiratory (Upper) Panel, P CRon 09-28-2024 Respiratory (Upper) Panel, PCR Adenovirus Not detected Bordetella parapertussis Not detected Chlamydia pneumoniae Not detected Coronavirus 229E Not detected Coronavirus HKU1 Not detected Coronavirus NL63 Not detected Coronavirus OC43 Not detected Influenza A Not detected Influenza B Not detected Human Metapneumovirus Not detected Mycoplasma pneumoniae Not detected Parainfluenza Virus 1 Not detected Parainfluenza Virus 2 Not detected Parainfluenza Virus 3 Not detected Parainfluenza Virus 4 Not detected Bordetella pertussis-ptxP Not detected Human Rhino/Enterovirus Not detected Resp. Syncytial Virus Not detected COVID-19 Detected/Not Detected Not detected Blank Space -- FLUA TEST INCLUDES Influenza A tests for the following clinically FLUA TEST INCLUDES significant subtypes: FLUA TEST INCLUDES - Influenza A FLUA TEST INCLUDES - Influenza A H1 FLUA TEST INCLUDES - Influenza A H1 2009 FLUA TEST INCLUDES - Influenza A H3 Blank Space -- PERFORMED BY: [place] [address] PATHOLOGIST PUBLIC RELATIONS COUNSELOR CHRISTOPHER PEDROZA M.D. Normal [facility] Comment on above: Performed By: #### C MP, LIPASE #### [address] Respiratory pathogens DNA an d RNA panel - Nasopharynx by SUSANA with non-probe detectionOrdered By: Nisha Gloria on 09-28-2024 Respiratory pathogens DNA and RNA panel SUSANA+non-probe (Nph) [facility] Serum globulin measurement b y calculation (mass/volume)Ordered By: Nisha Gloria on 09-28-2024 Globulin (S) [Mass/Vol] 3.0 g/dL Normal [facility] Comment on above: Performed By: #### C MP, LIPASE #### [address] Serum or plasma albumin/glob ulin mass ratioOrdered By: Nisha Gloria on 09-28-2024 Albumin/Globulin [Mass ratio] 1.0 {ratio} [facility] Comment on above: Performed By: #### C MP, LIPASE #### [address] Serum or plasma anion gap de terminationOrdered By: Nisha Gloria on 09-28-2024 Anion gap [Moles/Vol] 15.5 mmol/L High 6.0-15.0 [facility] Comment on above: Performed By: #### C MP, LIPASE #### [address] Sodium [Moles/volume] in Ser um or PlasmaOrdered By: Nisha Gloria on 09-28-2024 Sodium [Moles/Vol] 129 mmol/L Low 136-145 [facility] Comment on above: Performed By: #### C MP, LIPASE #### [address] Troponin I High Sensitivityo n 09-28-2024 Troponin I High Sensitivity 295 Off scale high 0-15 [facility] Comment on above: Result Comment: Crit ical Result : Called to and read back by: ZACH OVALLE/MARY at: 09/28/2024 10:48:46 by:[id number] The Troponin units of report have been changed to meet the Chest Pain Accreditation requirement, element EC5.M1l2. Troponin units are changed from pg/ml to ng/L. Also, the decimal is removed and results are in whole numbers. PERFORMED BY: [place] [address] PATHOLOGIST PUBLIC RELATIONS COUNSELOR CHRISTOPHER PEDROZA M.D. Performed By: #### H S TROP, CMP, LACTIC, CBC, MG #### [address] Troponin I High Sensitivity 352 Off scale high 0-15 [facility] Comment on above: Result Comment: Crit ical Result : Called to and read back by: ZACH OVALLE/ER at: 09/28/2024 09:57:54 by:[id number] The Troponin units of report have been changed to meet the Chest Pain Accreditation requirement, element EC5.M1l2. Troponin units are changed from pg/ml to ng/L. Also, the decimal is removed and results are in whole numbers. PERFORMED BY: [place] [address] PATHOLOGIST PUBLIC RELATIONS COUNSELOR CHRISTOPHER PEDROZA M.D. Performed By: #### H S TROP, CMP, LACTIC, CBC, MG #### [place] [id number] [facility] Troponin I.cardiac [Mass/vol ume] in Serum or Plasma by Detection limit <= 0.01 ng/mLOrdered By: Nisha Gloria on 09-28-2024 Troponin I.cardiac DL <= 0.01 ng/mL [Mass/Vol] 295 ng/L Critically high 0-15 [facility] Comment on above: Critical Result : Ca lled to and read back by: ZACH OVALLE/ER at: 09/28/2024 10:48:46 by:[id number] Troponin units of report have been changed to meet the Chest Pain Accreditation requirement, element EC5.M1l2. Troponin units are changed from pg/ml to ng/L. Also, the decimal is removed and results are in whole numbers. Urea nitrogen [Mass/volume] in Serum or PlasmaOrdered By: Nisha Gloria on 09-28-2024 Urea nitrogen [Mass/Vol] 19 mg/dL Normal 7-25 [facility] Comment on above: Performed By: #### C MP, LIPASE #### [place] [id number] [facility] Urinalysison 09-28-2024 Appearance (U) Clear Normal Clear [facility] Comment on above: Order Comment: Name Collection Type:: Clean-Voided Midstream Performed By: #### C MP, LIPASE #### [place] [address] [place] Bilirubin,Urine Negative Normal Negative [facility] Comment on above: Order Comment: Name Collection Type:: Clean-Voided Midstream Performed By: #### C MP, LIPASE #### [place] [address] [place] Color (U) Yellow Normal Yellow [facility] Comment on above: Order Comment: Name Collection Type:: Clean-Voided Midstream Performed By: #### C MP, LIPASE #### [address] Glucose Ql (U) Normal Normal Normal [facility] Comment on above: Order Comment: Name Collection Type:: Clean-Voided Midstream Performed By: #### C MP, LIPASE #### [place] [address] [place] Ketones Ql (U) Negative Normal Negative [facility] Comment on above: Order Comment: Name Collection Type:: Clean-Voided Midstream Performed By: #### C MP, LIPASE #### [address] Leukocyte esterase Test strip Ql (U) Negative Normal Negative [facility] Comment on above: Order Comment: Name Collection Type:: Clean-Voided Midstream Performed By: #### C MP, LIPASE #### [place] [address] [place] Nitrite,Urine Negative Normal Negative [facility] Comment on above: Order Comment: Name Collection Type:: Clean-Voided Midstream Performed By: #### C MP, LIPASE #### [place] [address] [place] Occult Blood,Urine Negative Normal Negative [facility] Comment on above: Order Comment: Name Collection Type:: Clean-Voided Midstream Result Comment: PERF ORMED BY: [place] [address] PATHOLOGIST PUBLIC RELATIONS COUNSELOR CHRISTOPHER PEDROZA M.D. Performed By: #### C MP, LIPASE #### [address] pH (U) 6.0 [pH] Normal 5.0-9.0 [facility] Comment on above: Order Comment: Name Collection Type:: Clean-Voided Midstream Performed By: #### C MP, LIPASE #### [address] Protein,Urine Trace Normal Negative [facility] Comment on above: Order Comment: Name Collection Type:: Clean-Voided Midstream Performed By: #### C MP, LIPASE #### [address] Specificy [place],Urine >1.050 High 1.001-1.03 0 [facility] Comment on above: Order Comment: Name Collection Type:: Clean-Voided Midstream Performed By: #### C MP, LIPASE #### [address] Urobilinogen,Urine Normal Normal Normal [facility] Comment on above: Order Comment: Name Collection Type:: Clean-Voided Midstream Performed By: #### C MP, LIPASE #### [address] Urine Cultureon 09-28-2024 Bacteria identified Cx Nom (U) No Growth 2 Days PERFORMED BY: [place] [address] PATHOLOGIST PUBLIC RELATIONS COUNSELOR CHRISTOPHER PEDROZA M.D. Normal [facility] Comment on above: Performed By: #### C UU #### [address] Basophils [#/volume] in Bloo d by Automated countOrdered By: Atilio Perez on 09-20-2024 Basophils (Bld) [#/Vol] 0.1 10*3/uL Normal 0.0-0.2 [facility] Comment on above: Result Comment: PERF ORMED BY: [place] [address] PATHOLOGIST PUBLIC RELATIONS COUNSELOR CHRISTOPHER PEDROZA M.D. Performed By: #### C MP, LIPASE #### [address] Basophils/100 leukocytes in Blood by Automated countOrdered By: Atilio Perez on 09-20-2024 Basophils/100 WBC (Bld) 1.0 % Normal . [facility] Comment on above: Performed By: #### C MP, LIPASE #### [address] Complete Blood Count Auto Di ffon 09-20-2024 Mean Corpuscular HGB Conc 34.5 g/dL Normal 32.0-35.0 [facility] Comment on above: Performed By: #### C MP, LIPASE #### [address] NRBC% 0.2 /100{WBC} Normal 0-0.5 [facility] Comment on above: Performed By: #### C MP, LIPASE #### [address] White Blood Count 5.9 [CFU]/mL Normal 3.8-11.6 [facility] Comment on above: Performed By: #### C MP, LIPASE #### [place] [address] [place] Eosinophils [#/volume] in Bl ood by Automated countOrdered By: Atilio Perez on 09-20-2024 Eosinophils (Bld) [#/Vol] 0.1 10*3/uL Normal 0.0-0.45 [facility] Comment on above: Performed By: #### C MP, LIPASE #### [place] [address] [place] Eosinophils/100 leukocytes i n Blood by Automated countOrdered By: Atilio Perez on 09-20-2024 Eosinophils/100 WBC (Bld) 1.3 % Normal . [facility] Comment on above: Performed By: #### C MP, LIPASE #### [place] [address] [place] Erythrocyte distribution wid th [Ratio] by Automated countOrdered By: Atilio Perez on 09-20-2024 Erythrocyte distribution width (RBC) [Ratio] 15.9 % High 11.9-15.3 [facility] Comment on above: Performed By: #### C MP, LIPASE #### [address] Erythrocytes [#/volume] in B lood by Automated countOrdered By: Atilio Perez on 09-20-2024 RBC (Bld) [#/Vol] 4.70 10*6/uL Normal 3.60-5.00 [facility] Comment on above: Performed By: #### C MP, LIPASE #### [facility] [address] [place] [address] Hematocrit [Volume Fraction] of Blood by Automated countOrdered By: Atilio Perez on 09-20-2024 Hematocrit (Bld) [Volume fraction] 46.6 % High 34.0-46.4 [facility] Comment on above: Performed By: #### C MP, LIPASE #### [facility] [address] [place] [address] Hemoglobin [Mass/volume] in BloodOrdered By: Atilio Perez on 09-20-2024 Hemoglobin (Bld) [Mass/Vol] 16.1 g/dL High 11.8-15.4 [facility] Comment on above: Performed By: #### C MP, LIPASE #### [address] Jerrell 09-20-2024 L ------ Specimen: [id number] Received: 09/20/24 Status: BLANKA Dawkins Num: [id number] Spec Type: Surgical Subm Dr: Sheldon Lal,DO Tissues: A Parotid (L PAROTID MASS) B Parotid (L PAROTID MASS) Procedures: HE/6, Gross/Micro L5/2, Frozen Section, -, FS HE/2, DIFF QWIK Age/ Patient Sex Location Account Attending Physician Kaylynn Talamantes 64/F [place] [id number] Sheldon Lal DO SPEC NUM: [id number] RECD: 09/20/24 STATUS: BLANKA DAWKINS NUM: [id number] KASEY: 09/20/[address] [facility] [address]: Sheldon Lal DO ENTERED: 09/20/[address] [facility] [address]: DWIGHT TYPE: Surgical DEPT: S ENTERED BY: [id number] RECV BY: [id number] ORDERED: HE/6, Gross/Micro L5/2, Frozen Section, -, FS HE/2, DIFF QWIK ORDERED: HE/6, Gross/Micro L5/2, Frozen Section, -, FS HE/2, DIFF QWIK Pathological Diagnosis A. 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 B. 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 Clinical Information Left parotid mass Gross Description Part A received fresh for frozen section labeled with the patient's name, date of , and Left parotid mass is a 3.3 grams, encapsulated nodule, 2 x 1.5 x 1.2 cm, resected with adipose tissue, up to 0.5 cm in thickness. Serial sections reveal luciano-diaz to pink, partially cystic, partially solid cut surfaces that are situated adjacent (less than 0.1 cm) from the capsular surface. A touch prep H E and Diff-Quik slide are prepared. A banking representative section is submitted for frozen section in A1. The remainder of the nodule is submitted for routine H E processing in A2?A3 with the adipose tissue submitted in A4. (4, ns, [id number] A) Part B is received in formalin labeled with the patients name, date of , and Left Specimen: [id number] Received: 09/20/24 Status: BLANKA Dawkins Num: [id number] Spec Type: Surgical Subm Dr: Sheldon Lal, Tissues: A Parotid (L PAROTID MASS) B Parotid (L PAROTID MASS) Procedures: HE/6, Gross/Micro L5/2, Frozen Section, -, FS HE/2, DIFF QWIK Patient: TalamantesKaylynn [id number] (Continued) Specimen: [id number] Received: 09/20/24 (Continued) Gross Description (Continued) Signed (signature on file) Ward Soriano MD 09/22/24 1125 Specimen: [id number] Received: 09/20/24 Status: BLANKA Selena Num: [id number] Spec Type: Surgical Subm Dr: Sheldon Lal DO Tissues: A Parotid (L PAROTID MASS) B Parotid (L PAROTID MASS) Procedures: HE/6, Gross/Micro L5/2, Frozen Section, -, FS HE/2, DIFF QKEV Patient: Kaylynn Talamantes [id number] (Continued) Specimen: [id number] Received: 09/20/24 (Continued) Gross Description (Continued) parotid mass is a 0.5 grams, ovoid rubbery nodule, 1 x 1.1 x 0.8 cm. The capsular surface is diaz-pink, membranous, smooth and glistening with focal adhesions. Serial sections reveal a smooth lined internal cavity, 0.4 cm in greatest dimension, filled with a luciano-diaz, watery material. The remaining cut surfaces are diaz-pink, glistening and uniform. The specimen is entirely submitted in a single cassette. (1, ns, [id number] B) Intraoperative Diagnosis Part A : Left parotid mass, touch preparation and frozen section: - Adjuntas's tumor. - Frozen section diagnosis conveyed to Dr. Lal on 09/20/24 at 14:30 pm. Microscopic Description A B: Microscopic examination is performed. CPT Codes 38831i8, 37693, 98567 Specimen: [id number] Received: 09/20/24 Status: BLANKA Dawkins Num: [id number] Spec Type: Surgical Subm Dr: Sheldon Lal,DO Tissues: A Parotid (L PAROTID MASS) B Parotid (L PAROTID MASS) Procedures: HE/6, Gross/Micro L5/2, Frozen Section, -, FS HE/2, DIFF QWIK ------ (more content not included)... Normal [facility] Leukocytes [#/volume] correc giovanna for nucleated erythrocytes in Blood by Automated counOrdered By: Atilio Perez on 09-20-2024 WBC corrected for nucl RBC Auto (Bld) [#/Vol] 5.9 10*3/uL 3.8-11.6 [facility] Leukocytes [#/volume] in Blo od by Automated countOrdered By: Atilio Perez on 09-20-2024 WBC (Bld) [#/Vol] 5.9 10*3/uL Normal 3.8-11.6 [facility] Comment on above: Performed By: #### C MP, LIPASE #### [place] [address] [place] Lymphocytes [#/volume] in Bl ood by Automated countOrdered By: Atilio Perez on 09-20-2024 Lymphocytes (Bld) [#/Vol] 2.1 10*3/uL Normal 1.00-4.8 [facility] Comment on above: Performed By: #### C MP, LIPASE #### [address] Lymphocytes/100 leukocytes i n Blood by Automated countOrdered By: Atilio Perez on 09-20-2024 Lymphocytes/100 WBC (Bld) 35.8 % Normal . [facility] Comment on above: Performed By: #### C MP, LIPASE #### [place] [address] [place] MCH [Entitic mass] by Automa giovanna countOrdered By: Atilio Perez on 09-20-2024 MCH (RBC) [Entitic mass] 34.1 pg Normal 24.7-34.3 [facility] Comment on above: Performed By: #### C MP, LIPASE #### [address] MCHC Auto (RBC) [Mass/Vol]Or dered By: Atilio Perez on 09-20-2024 MCHC (RBC) [Mass/Vol] 34.5 g/dL 32.0-35.0 [facility] MCV [Entitic volume] by Auto mated countOrdered By: Atilio Perez on 09-20-2024 MCV (RBC) [Entitic vol] 99.1 fL Normal 80-100 [facility] Comment on above: Performed By: #### C MP, LIPASE #### [facility] [address] [place] [address] [place] Monocytes [#/volume] in Bloo d by Automated countOrdered By: Atilio Perez on 09-20-2024 Monocytes (Bld) [#/Vol] 0.4 10*3/uL Normal 0.0-0.8 [facility] Comment on above: Performed By: #### C MP, LIPASE #### [place] [address] [place] Monocytes/100 leukocytes in Blood by Automated countOrdered By: Atilio Peerz on 09-20-2024 Monocytes/100 WBC (Bld) 6.9 % Normal . [facility] Comment on above: Performed By: #### C MP, LIPASE #### [place] [address] [place] Neutrophils [#/volume] in Bl ood by Automated countOrdered By: Atilio Perez on 09-20-2024 Neutrophils (Bld) [#/Vol] 3.2 10*3/uL Normal 1.8-7.7 [facility] Comment on above: Performed By: #### C MP, LIPASE #### [place] [address] [place] Neutrophils/100 leukocytes i n Blood by Automated countOrdered By: Atilio Perez on 09-20-2024 Neutrophils/100 WBC (Bld) 55.0 % Normal . [facility] Comment on above: Performed By: #### C MP, LIPASE #### [place] [address] [place] Nucleated erythrocytes [Pres ence] in Blood by Automated countOrdered By: Atilio Perez on 09-20-2024 Nucleated RBC Auto Ql (Bld) 0.2 /100{WBC} 0-0.5 [facility] Platelet mean volume [Entiti c volume] in Blood by Automated countOrdered By: Atilio Perez on 09-20-2024 Platelet mean volume (Bld) [Entitic vol] 10.1 fL Normal 6.3-10.7 [facility] Comment on above: Performed By: #### C MP, LIPASE #### [facility] [address] Platelets [#/volume] in Bloo d by Automated countOrdered By: Atilio Perez on 09-20-2024 Platelets (Bld) [#/Vol] 118 10*3/uL Low 150-450 [facility] Comment on above: Performed By: #### C MP, LIPASE #### [facility] [address] Basic Metabolic Panelon 08-29 GFR/1.73 sq M.predicted MDRD (S/P/Bld) [Vol rate/Area] mL/min/{1.73_m2} Normal [facility] Comment on above: Performed By: #### H S TROP, CMP, LACTIC, CBC, MG #### [facility] [address] Basic metabolic 1998 panelon 09-12-2024 Anion gap [Moles/Vol] 8.6 mmol/L 6.0 - 15.0 [facility] Calcium [Mass/Vol] 9.2 mg/dL 8.6 - 10. 3 mg/dL [facility] Chloride [Moles/Vol] 108 mmol/L High 98 - 10 7 mmol/L [facility] CO2 [Moles/Vol] 28.4 mmol/L 21.0 - 31.0 mmol/L [facility] Creatinine (U) [Mass/Vol] 0.57 mg/dL Low 0.60 - 1.20 mg/dL [facility] ESTIMATED GFR [facility] Glucose [Mass/Vol] 87 mg/dL 70 - 100 mg/dL [facility] Comment on above: Random Glucose Refer ence Range is dependent on time and content of last meal. Glucose of more than 200 mg/dL in a nonstressed, ambulatory subject supports the diagnosis of Diabetes Mellitus. ADA recommended reference range Interpretation and review of laboratory results Abnormal [facility] Potassium [Moles/Vol] 4 mmol/L 3.5 - 5.1 mmol/L [facility] Sodium [Moles/Vol] 141 mmol/L 136 - 145 mmol/L [facility] Urea nitrogen [Mass/Vol] 6 mg/dL Low 7 - 25 mg/dL [facility] Basophils [#/volume] in Bloo d by Automated countOrdered By: Sheldon Lal on 09-12-2024 Basophils (Bld) [#/Vol] 0.0 10*3/uL Normal 0.0-0.2 [facility] Comment on above: Result Comment: PERF ORMED BY: [place] [address] PATHOLOGIST PUBLIC RELATIONS COUNSELOR CHRISTOPHER PEDROZA M.D. Performed By: #### H S TROP, CMP, LACTIC, CBC, MG #### [facility] [address] [place] [address] Basophils/100 leukocytes in Blood by Automated countOrdered By: Sheldon Lal on 09-12-2024 Basophils/100 WBC (Bld) 0.5 % Normal . [facility] Comment on above: Performed By: #### H S TROP, CMP, LACTIC, CBC, MG #### [address] CBC W Auto Differential pane l (Bld)on 09-12-2024 Basophils (Bld) [#/Vol] 0 10*3/uL 0.0 - 0.2 10*3/uL [facility] Basophils/100 WBC Manual cnt (Syn fld) 0.5 % . [facility] Eosinophils (Bld) [#/Vol] 0.1 10*3/uL 0.0 - 0.45 10*3/uL [facility] Eosinophils/100 WBC Manual cnt (Syn fld) 1.5 % . [facility] Erythrocyte distribution width (RBC) [Ratio] 15.4 % High 11.9 - 15.3 % [facility] Hematocrit (Bld) [Volume fraction] 44.8 % 34.0 - 46.4 % [facility] Hemoglobin (Bld) [Mass/Vol] 15.3 g/dL 11.8 - 15.4 g/dL [facility] Interpretation and review of laboratory results Abnormal [facility] Lymphocytes (Bld) [#/Vol] 1.9 10*3/uL 1.00 - 4.8 10*3/uL [facility] Lymphocytes/100 WBC Manual cnt (Syn fld) 33.6 % . [facility] MCH (RBC) [Entitic mass] 34.1 pg 24.7 - 34.3 pg [facility] MCHC (RBC) [Mass/Vol] 34.1 g/dL 32.0 - 35.0 g/dL [facility] MCV (RBC) [Entitic vol] 100.2 fL High 80 - 100 fL [facility] Monocytes (Bld) [#/Vol] 0.4 10*3/uL 0.0 - 0.8 10*3/uL [facility] Monocytes+Macrophages/ 100 WBC Manual cnt (Syn fld) 7.4 % . [facility] Neutrophils (Bld) [#/Vol] 3.2 10*3/uL 1.8 - 7.7 10*3/uL [facility] Neutrophils/100 WBC Manual cnt (Syn fld) 57 % . [facility] NRBC 0.1 /100{WBC} 0 - 0.5 /100{WBC} [facility] Platelet mean volume (Bld) [Entitic vol] 9.2 fL 6.3 - 10.7 fL [facility] Platelets (Bld) [#/Vol] 98 10*3/uL Low 150 - 450 10*3/uL [facility] RBC LM.HPF (Urine sed) [#/Area] 4.47 10*6/uL 3.60 - 5.00 10*6/uL [facility] WBC (Bld) [#/Vol] 5.6 10*3/uL 3.8 - 11.6 10*3/uL [facility] WBC LM.HPF (Urine sed) [#/Area] 5.6 [CFU]/mL 3.8 - 11.6 [CFU]/mL [facility] Calcium [Mass/volume] in Ser um or PlasmaOrdered By: Sheldon Lal on 09-12-2024 Calcium [Mass/Vol] 9.2 mg/dL Normal 8.6-10.3 [facility] Comment on above: Result Comment: PERF ORMED BY: [place] [address] PATHOLOGIST PUBLIC RELATIONS COUNSELOR CHRISTOPHER PEDROZA M.D. Performed By: #### H S TROP, CMP, LACTIC, CBC, MG #### [address] Carbon dioxide, total [Moles /volume] in Serum or PlasmaOrdered By: Sheldon Lal on 09-12-2024 CO2 [Moles/Vol] 28.4 mmol/L Normal 21.0-31.0 [facility] Comment on above: Performed By: #### H S TROP, CMP, LACTIC, CBC, MG #### [address] Chloride [Moles/volume] in S loraine or PlasmaOrdered By: Sheldon Lal on 09-12-2024 Chloride [Moles/Vol] 108 mmol/L High 98-107 [facility] Comment on above: Performed By: #### H S TROP, CMP, LACTIC, CBC, MG #### [address] Complete Blood Count Auto Di ffon 09-12-2024 Mean Corpuscular HGB Conc 34.1 g/dL Normal 32.0-35.0 [facility] Comment on above: Performed By: #### H S TROP, CMP, LACTIC, CBC, MG #### [address] NRBC% 0.1 /100{WBC} Normal 0-0.5 [facility] Comment on above: Performed By: #### H S TROP, CMP, LACTIC, CBC, MG #### [address] White Blood Count 5.6 [CFU]/mL Normal 3.8-11.6 [facility] Comment on above: Performed By: #### H S TROP, CMP, LACTIC, CBC, MG #### [place] [address] [place] Creatinine [Mass/volume] in Serum or PlasmaOrdered By: Sheldon Lal on 09-12-2024 Creatinine [Mass/Vol] 0.57 mg/dL Low 0.60-1.20 [facility] Comment on above: Performed By: #### H S TROP, CMP, LACTIC, CBC, MG #### [facility] [address] ECG 12 lead ECGon 09-12-2024 ECG 12 lead ECG [facility] [place] [address] [place] [address] Electrocardiograph Report Signed Patient: Kaylynn Talamantes MR#: [id number] : 1960 Acct:[id number] Age/Sex: 64 / F ADM Date: 09/12/24 Loc: Room: Type: [facility] [address] Attending Dr: Sheldon Lal DO Ordering Provider: Sheldon Lal DO Date of Service: 09/12/24 ECG/ECG 12 [...] change was found Confirmed by Joel Barlow ([id number]) on 09/12/2024 2:02:51 PM Referred By: Electronically Signed By: Joel Barlow Transcribed By: MUS Signed By Joel Barlow MD 09/12/24 1402 Normal [facility] Eosinophils [#/volume] in Bl ood by Automated countOrdered By: Sheldon Lal on 09-12-2024 Eosinophils (Bld) [#/Vol] 0.1 10*3/uL Normal 0.0-0.45 [facility] Comment on above: Performed By: #### H S TROP, CMP, LACTIC, CBC, MG #### [facility] [address] Eosinophils/100 leukocytes i n Blood by Automated countOrdered By: Sheldon Lal on 09-12-2024 Eosinophils/100 WBC (Bld) 1.5 % Normal . [facility] Comment on above: Performed By: #### H S TROP, CMP, LACTIC, CBC, MG #### [facility] [address] Erythrocyte distribution wid th [Ratio] by Automated countOrdered By: Sheldon Lal on 09-12-2024 Erythrocyte distribution width (RBC) [Ratio] 15.4 % High 11.9-15.3 [facility] Comment on above: Performed By: #### H S TROP, CMP, LACTIC, CBC, MG #### [facility] [address] Erythrocytes [#/volume] in B lood by Automated countOrdered By: Sheldon Lal on 09-12-2024 RBC (Bld) [#/Vol] 4.47 10*6/uL Normal 3.60-5.00 [facility] Comment on above: Performed By: #### H S TROP, CMP, LACTIC, CBC, MG #### [facility] [address] [place] [address] Glucose [Mass/volume] in Ser um or PlasmaOrdered By: Sheldon Lal on 09-12-2024 Glucose [Mass/Vol] 87 mg/dL Normal 70-100 [facility] Comment on above: ADA recommended refe rence rangeRandom Glucose Reference Range is dependent on time and content of last meal. Glucose of more than 200 mg/dL in a nonstressed, ambulatory subject supports the diagnosis of Diabetes Mellitus. Result Comment: [place] om Glucose Reference Range is dependent on time and content of last meal. Glucose of more than 200 mg/dL in a nonstressed, ambulatory subject supports the diagnosis of Diabetes Mellitus. ADA recommended reference range Performed By: #### H S TROP, CMP, LACTIC, CBC, MG #### [facility] [address] Hematocrit [Volume Fraction] of Blood by Automated countOrdered By: Sheldon Lal on 09-12-2024 Hematocrit (Bld) [Volume fraction] 44.8 % Normal 34.0-46.4 [facility] Comment on above: Performed By: #### H S TROP, CMP, LACTIC, CBC, MG #### [facility] [address] Hemoglobin [Mass/volume] in BloodOrdered By: Sheldon Lal on 09-12-2024 Hemoglobin (Bld) [Mass/Vol] 15.3 g/dL Normal 11.8-15.4 [facility] Comment on above: Performed By: #### H S TROP, CMP, LACTIC, CBC, MG #### [facility] [address] [place] [address] Leukocytes [#/volume] correc giovanna for nucleated erythrocytes in Blood by Automated counOrdered By: Sheldon Lal on 09-12-2024 WBC corrected for nucl RBC Auto (Bld) [#/Vol] 5.6 10*3/uL 3.8-11.6 [facility] Leukocytes [#/volume] in Blo od by Automated countOrdered By: Sheldon Lal on 09-12-2024 WBC (Bld) [#/Vol] 5.6 10*3/uL Normal 3.8-11.6 [facility] Comment on above: Performed By: #### H S TROP, CMP, LACTIC, CBC, MG #### [facility] [address] [place] [address] [place] Lymphocytes [#/volume] in Bl ood by Automated countOrdered By: Sheldon Lal on 09-12-2024 Lymphocytes (Bld) [#/Vol] 1.9 10*3/uL Normal 1.00-4.8 [facility] Comment on above: Performed By: #### H S TROP, CMP, LACTIC, CBC, MG #### [facility] [address] [place] [address] [place] Lymphocytes/100 leukocytes i n Blood by Automated countOrdered By: Sheldon Lal on 09-12-2024 Lymphocytes/100 WBC (Bld) 33.6 % Normal . [facility] Comment on above: Performed By: #### H S TROP, CMP, LACTIC, CBC, MG #### [address] MCH [Entitic mass] by Automa giovanna countOrdered By: Sheldon Lal on 09-12-2024 MCH (RBC) [Entitic mass] 34.1 pg Normal 24.7-34.3 [facility] Comment on above: Performed By: #### H S TROP, CMP, LACTIC, CBC, MG #### [address] MCHC Auto (RBC) [Mass/Vol]Or dered By: Sheldon Lal on 09-12-2024 MCHC (RBC) [Mass/Vol] 34.1 g/dL 32.0-35.0 [facility] MCV [Entitic volume] by Auto mated countOrdered By: Sheldon Lal on 09-12-2024 MCV (RBC) [Entitic vol] 100.2 fL High 80-100 [facility] Comment on above: Performed By: #### H S TROP, CMP, LACTIC, CBC, MG #### [address] Monocytes [#/volume] in Bloo d by Automated countOrdered By: Sheldon Lal on 09-12-2024 Monocytes (Bld) [#/Vol] 0.4 10*3/uL Normal 0.0-0.8 [facility] Comment on above: Performed By: #### H S TROP, CMP, LACTIC, CBC, MG #### [place] [address] [place] Monocytes/100 leukocytes in Blood by Automated countOrdered By: Sheldon Lal on 09-12-2024 Monocytes/100 WBC (Bld) 7.4 % Normal . [facility] Comment on above: Performed By: #### H S TROP, CMP, LACTIC, CBC, MG #### [address] Neutrophils [#/volume] in Bl ood by Automated countOrdered By: Sheldon Lal on 09-12-2024 Neutrophils (Bld) [#/Vol] 3.2 10*3/uL Normal 1.8-7.7 [facility] Comment on above: Performed By: #### H S TROP, CMP, LACTIC, CBC, MG #### [facility] [address] [place] [address] [place] Neutrophils/100 leukocytes i n Blood by Automated countOrdered By: Sheldon Lal on 09-12-2024 Neutrophils/100 WBC (Bld) 57.0 % Normal . [facility] Comment on above: Performed By: #### H S TROP, CMP, LACTIC, CBC, MG #### [address] No Panel InformationOrdered By: Sheldon Lal on 09-12-2024 Estimated GFR (CKD-EPI) > 60.0 mL/Min [facility] Creatinine Clearance (Chem N/A [facility] Nucleated erythrocytes [Pres ence] in Blood by Automated countOrdered By: Sheldon Lal on 09-12-2024 Nucleated RBC Auto Ql (Bld) 0.1 /100{WBC} 0-0.5 [facility] Platelet mean volume [Entiti c volume] in Blood by Automated countOrdered By: Sheldon Lal on 09-12-2024 Platelet mean volume (Bld) [Entitic vol] 9.2 fL Normal 6.3-10.7 [facility] Comment on above: Performed By: #### H S TROP, CMP, LACTIC, CBC, MG #### [facility] [address] [place] [address] Platelets [#/volume] in Bloo d by Automated countOrdered By: Sheldon Lal on 09-12-2024 Platelets (Bld) [#/Vol] 98 10*3/uL Low 150-450 [facility] Comment on above: Performed By: #### H S TROP, CMP, LACTIC, CBC, MG #### [address] Potassium [Moles/volume] in Serum or PlasmaOrdered By: Sheldon Lal on 09-12-2024 Potassium [Moles/Vol] 4.0 mmol/L Normal 3.5-5.1 [facility] Comment on above: Performed By: #### H S TROP, CMP, LACTIC, CBC, MG #### [facility] [address] Serum or plasma anion gap de terminationOrdered By: Sheldon Lal on 09-12-2024 Anion gap [Moles/Vol] 8.6 mmol/L Normal 6.0-15.0 [facility] Comment on above: Performed By: #### H S TROP, CMP, LACTIC, CBC, MG #### [facility] [address] Sodium [Moles/volume] in Ser um or PlasmaOrdered By: Sheldon Lal on 09-12-2024 Sodium [Moles/Vol] 141 mmol/L Normal 136-145 [facility] Comment on above: Performed By: #### H S TROP, CMP, LACTIC, CBC, MG #### [facility] [address] Urea nitrogen [Mass/volume] in Serum or PlasmaOrdered By: Sheldon Lal on 09-12-2024 Urea nitrogen [Mass/Vol] 6 mg/dL Low 7-25 [facility] Comment on above: Performed By: #### H S TROP, CMP, LACTIC, CBC, MG #### [facility] [address] SOFT TISSUE NECK W IV CON TRASTon 08-28-2024 CT SOFT TISSUE NECK W IV CONTRAST EXAM: CT SOFT TISSUE NECK W IV [...] and nasal cavity appear unremarkable. The bilateral refining engineer, parapharyngeal, carotid and retropharyngeal spaces appear unremarkable. [...] but most likely an epidermal inclusion cyst. IMPRESSION: Nonspecific 2 x 1.5 x 2 cm structure within the superficial lobe of the left parotid gland may represent enlarged lymph node however benign and malignant parotid gland lesions are not excluded. ELECTRONICALLY SIGNED BY: Atilio Wadsworth, DO Invalid Interpretation Code Not Available Urinalysis macro (dipstick) panel (U)on 08-15-2024 Bilirubin, UA Negative Negative - 4(70) +++ mg/dL [facility] Blood, UA Not detected Negative - 50 Isreal/mcL [facility] Clarity, UA Cloudy [facility] Color, UA Dark Divine [facility] Glucose, UA Negative Negative - 2000(110) ++++ mg/dL [facility] Ketones, UA Negative Negative - 160(16) ++++ mg/dL [facility] Leukocytes, UA Negative Negative - 500+++ Cheyanne/mcL [facility] Nitrite, UA Negative Negative - Positive [facility] pH, UA 8 5 - 9 [facility] Protein, UA Positive Negative - 2000(20) ++++ mg/dL [facility] Spec Grav, UA 1.01 1 - 1.03 [facility] Urobilinogen, UA 0.2 0.2 - 12 mg/dL [facility] SURESWAB(R) ADVANCED VAGINIT IS PLUS, TMAon 08-02-2024 C. glabrata RNA SUSANA+probe Ql (Vag fld) Not detected NOT DETECTED [facility] Comment on above: Petrona species C. albicans, C. tropicalis, C. parapsilosis, and/or C. dubliniensis can be detected, but not differentiated, in the Petrona spp. result. C. trachomatis rRNA SUSANA+probe Ql (Unsp spec) Not detected NOT DETECTED [facility] [place]a sp rRNA Probe Ql (Vag fld) Not detected NOT DETECTED [facility] Lactobacillus crispatus+gasseri+irene enii + Gardnerella vaginalis + Atopobium vaginae rRNA SUSANA+probe Ql (Vag fld) Negative NEGATIVE [facility] N. gonorrhoeae rRNA SUSANA+probe Ql (Unsp spec) Not detected NOT DETECTED [facility] Comment on above: For additional infor mation, please refer to https://education.CSDN/faq/MQM007 (This link is being provided for information/ educational purposes only.) T. vaginalis rRNA SUSANA+probe Ql (Unsp spec) Not detected NOT DETECTED [facility] AN UPDATE OR CORRECT ION HAS BEEN MADE TO NAME Hemosphere Performing Organizat ion Information Site ID: QPT Name: [employer] [facility] Address: [address] [place] [address], [address] [place] [id number] Director: Kush Ojeda MD [facility] Urinalysis macro (dipstick) panel (U)on 08-01-2024 Bilirubin, UA Negative Negative - 4(70) +++ mg/dL [facility] Blood, UA Positive Negative - 50 Isreal/mcL [facility] Clarity, UA Cloudy [facility] Color, UA Yellow [facility] Glucose, UA Negative Negative - 2000(110) ++++ mg/dL [facility] Ketones, UA Negative Negative - 160(16) ++++ mg/dL [facility] Leukocytes, UA Positive Negative - 500+++ Cheyanne/mcL [facility] Nitrite, UA Negative Negative - Positive [facility] pH, UA 7 5 - 9 [facility] Protein, UA Positive Negative - 2000(20) ++++ mg/dL [facility] Spec Grav, UA 1.005 1 - 1.03 [facility] Urobilinogen, UA 0.2 0.2 - 12 mg/dL [facility] X-ray reportOrdered By: Shady Perez on 08-01-2024 Study report [facility] [address] [place] [address] XRay Report Signed Patient: Kaylynn Talamantes MR#: [id number] : 1960 Acct:[id number] Age/Sex: 64 / F ADM Date: 5 Loc: [facility] Room: Type: [facility] [address] Attending Dr: Yael Joya MD Copies to: Yael Joya MD~ Ordering Provider: Yael Joya MD Date of Service: 08/01/24 XR/XR hand LT min 3V*: M79.642 - Pain in left hand 4 views left hand plain film COMPARISON: None HISTORY: Left first digit pain. ACUTE FINDINGS: None DEGENERATIVE CHANGE: Extensive first carpometacarpal degenerative changes. Mildinterphalangeal degeneration. SOFT TISSUE FINDINGS: Unremarkable JOINT EFFUSION: None POSTOP CHANGES: None BONY MINERALIZATION: Adequate XR/XR hand LT min 3V* IMPRESSION: Extensive first carpometacarpal degenerative changes. Impression dictated by: Sly Perez M.D. 08/01/2024 6:39 PM Dictation Location: [place] [address] Transcribed By: [facility] 08/01/241838 Dictated By: Sly Perez DO 08/01/241837 Signed By: 08/01/241838 [facility] XR hand LT min 3V*on 025 XR hand LT min 3V* [facility] [address] [place] [address] XRay Report Signed Patient: Kaylynn Talamantes MR#: [id number] : 1960 Acct:[id number] Age/Sex: 64 / F ADM Date: 08/01/24 Loc: [facility] [place] Room: Type: [facility] Attending Dr: Yael Joya MD Copies to: Yael Joya MD Ordering Provider: Yael Joya MD Date of Service: 08/01/24 XR/XR hand LT min 3V*: M79.642 - Pain in left hand 4 views left hand plain film COMPARISON: None HISTORY: Left first digit pain. ACUTE FINDINGS: None DEGENERATIVE CHANGE: Extensive first carpometacarpal degenerative changes. Mild interphalangeal degeneration. SOFT TISSUE FINDINGS: Unremarkable JOINT EFFUSION: None POSTOP CHANGES: None BONY MINERALIZATION: Adequate XR/XR hand LT min 3V* IMPRESSION: Extensive first carpometacarpal degenerative changes. Impression dictated by: Sly Perez M.D. 08/01/2024 6:39 PM Dictation Location: [place] [address] Transcribed By: [facility] 08/01/241838 Dictated By: Sly Perez DO 08/01/241837 Signed By: 08/01/241838 Normal [facility] C3 AND C4on 07-19-2024 C 3 130 MG/DL Normal (88 - 165) [facility] Comment on above: Performed By: #### C BC-4A, ENA6, ANAFXT, ESRCRP, B12+, VD25, CK, CCP, RHF #### [facility] [address] [facility], [address] C 4 33 MG/DL Normal (14 - 44) [facility] Comment on above: Performed By: #### C BC-4A, ENA6, ANAFXT, ESRCRP, B12+, VD25, CK, CCP, RHF #### [facility] [address] [facility], [address] HEP B CORE AB, TOTALon 07-19 HEP B CORE AB Negative Normal (NEG - NEG) [facility] Comment on above: Performed By: #### C BC-4A, ENA6, ANAFXT, ESRCRP, B12+, VD25, CK, CCP, RHF #### [facility] [address] [facility], [address] HEP B SURF ABon 07-19-2024 HEP B SURF AB Negative Normal (NEG - NEG) [facility] Comment on above: Performed By: #### C BC-4A, ENA6, ANAFXT, ESRCRP, B12+, VD25, CK, CCP, RHF #### [facility] [address] [facility], [address] HEP C ANTIBODYon 07-19-2024 HEPATITIS C ANTIBODY Negative Normal (NEG - NEG) [facility] Comment on above: Performed By: #### C BC-4A, ENA6, ANAFXT, ESRCRP, B12+, VD25, CK, CCP, RHF #### [facility] [address] [facility], [address] PROTEIN AND CREATININE (RAND OM)on 07-19-2024 Creatinine [Mass/Vol] 19.0 mg/dL Low (20 - 320) [facility] Comment on above: Performed By: #### C BC-4A, ENA6, ANAFXT, ESRCRP, B12+, VD25, CK, CCP, RHF #### [facility] [address] [facility], [address] Protein (U) [Mass/Vol] 15.6 mg/dL High (0.0 - 12.0) [facility] Comment on above: Performed By: #### C BC-4A, ENA6, ANAFXT, ESRCRP, B12+, VD25, CK, CCP, RHF #### [facility] [address] [facility], [address] URINE PROTEIN/CREAT RATIO 821 MG/G CR High (21 - 161) [facility] Comment on above: Performed By: #### C BC-4A, ENA6, ANAFXT, ESRCRP, B12+, VD25, CK, CCP, RHF #### [facility] [address] [facility], [address] SED RATE - CRPon 07-19-2024 CRP EXTENDED RANGE 2.63 MG/L Normal (0.00 - 5.00) [facility] Comment on above: Performed By: #### C BC-4A, ENA6, ANAFXT, ESRCRP, B12+, VD25, CK, CCP, RHF #### [facility] [address] [facility], [address] SED RATE WEST. 23 MM/HR Normal (0 - 25) [facility] Comment on above: Performed By: #### C BC-4A, ENA6, ANAFXT, ESRCRP, B12+, VD25, CK, CCP, RHF #### [facility] [address] [facility], [address] SENSITIVITY GRAM (-)on 07-19 AMIKACIN S Normal () [facility] Comment on above: Performed By: #### C BC-4A, ENA6, ANAFXT, ESRCRP, B12+, VD25, CK, CCP, RHF #### [facility] [address] [facility], [address] AMPICILLIN R High () [facility] Comment on above: Performed By: #### C BC-4A, ENA6, ANAFXT, ESRCRP, B12+, VD25, CK, CCP, RHF #### [facility] [address] [facility], [address] AMPICILLIN/SULBACTAM S Normal () [facility] Comment on above: Performed By: #### C BC-4A, ENA6, ANAFXT, ESRCRP, B12+, VD25, CK, CCP, RHF #### [facility] [address] [facility], [address] CEFAZOLIN I Normal () [facility] Comment on above: Performed By: #### C BC-4A, ENA6, ANAFXT, ESRCRP, B12+, VD25, CK, CCP, RHF #### [facility] [address] [facility], [address] CEFEPIME S Normal () [facility] Comment on above: Performed By: #### C BC-4A, ENA6, ANAFXT, ESRCRP, B12+, VD25, CK, CCP, RHF #### [facility] [facility] [address] [place], [address] CEFTRIAXONE S Normal () [facility] Comment on above: Performed By: #### C BC-4A, ENA6, ANAFXT, ESRCRP, B12+, VD25, CK, CCP, RHF #### [facility] [address] [place], [address] CIPROFLOXACIN S Normal () [facility] Comment on above: Performed By: #### C BC-4A, ENA6, ANAFXT, ESRCRP, B12+, VD25, CK, CCP, RHF #### [facility] [address] [place], [address] ERTAPENEM S Normal () [facility] Comment on above: Performed By: #### C BC-4A, ENA6, ANAFXT, ESRCRP, B12+, VD25, CK, CCP, RHF #### [facility] [address] [place], [address] GENTAMICIN S Normal () [facility] Comment on above: Performed By: #### C BC-4A, ENA6, ANAFXT, ESRCRP, B12+, VD25, CK, CCP, RHF #### [facility] [address] [place], [address] LEVOFLOXACIN S Normal () [facility] Comment on above: Performed By: #### C BC-4A, ENA6, ANAFXT, ESRCRP, B12+, VD25, CK, CCP, RHF #### [facility] [address] [place], [address] NITROFURANTOIN S Normal () [facility] Comment on above: Performed By: #### C BC-4A, ENA6, ANAFXT, ESRCRP, B12+, VD25, CK, CCP, RHF #### [facility] [address] [place], [address] REPORT STATUS FINAL Normal () [facility] Comment on above: Result Comment: CULT URE SOURCE: CLEAN CATCH MID-STREAM URINE ISOLATE: ESCHERICHIA COLI COLONY COUNT: > 100,000 CFU/ML Performed By: #### C BC-4A, ENA6, ANAFXT, ESRCRP, B12+, VD25, CK, CCP, RHF #### [facility] [address] [facility], [address] TRIMETH/SULFA S Normal () [facility] Comment on above: Performed By: #### [facility] BC-4A, ENA6, ANAFXT, ESRCRP, B12+, VD25, CK, CCP, RHF #### [facility] [address] [facility], [address] URINALYSIS WITH REFLEX CULTU REon 07-19-2024 ALBUMIN Negative Normal (NONE - NEG) [facility] Comment on above: Order Comment: FACIL ITY: [facility] O [id number] Performed By: #### U AFLX, PCR-R, C3-C4, ESRCRP, HBCA, HCV, HBSAB, C-UR, GN809 #### [facility] [address] [facility], [address] BACTERIA MOD High (NONE - OCC) [facility] Comment on above: Order Comment: FACIL ITY: [facility] O [id number] Performed By: #### U AFLX, PCR-R, C3-C4, ESRCRP, HBCA, HCV, HBSAB, C-UR, GN809 #### [facility] [address] [facility], [address] Bilirubin Ql (U) Negative Normal (NEG) [facility] Comment on above: Order Comment: FACIL ITY: [facility] NWO [id number] Performed By: #### U AFLX, PCR-R, C3-C4, ESRCRP, HBCA, HCV, HBSAB, C-UR, GN809 #### [facility] [address] [facility], [address] CHARACTER CLEAR Normal (CLEAR - HAZY) [facility] Comment on above: Order Comment: FACIL ITY: [facility] [id number] Performed By: #### U AFLX, PCR-R, C3-C4, ESRCRP, HBCA, HCV, HBSAB, C-UR, GN809 #### [facility] [address] [facility], [address] Color (U) P YEL Normal (P YEL - L AMB) [facility] Comment on above: Order Comment: FACIL ITY: [facility] [id number] Performed By: #### U AFLX, PCR-R, C3-C4, ESRCRP, HBCA, HCV, HBSAB, C-UR, GN809 #### [facility] [address] [facility], [address] Glucose Ql (U) Negative Normal (NEG) [facility] Comment on above: Order Comment: FACIL ITY: [facility] [id number] Performed By: #### U AFLX, PCR-R, C3-C4, ESRCRP, HBCA, HCV, HBSAB, C-UR, GN809 #### [facility] [address] [facility], [address] Ketones Ql (U) Negative Normal (NEG) [facility] Comment on above: Order Comment: FACIL ITY: [facility] [id number] Performed By: #### U AFLX, PCR-R, C3-C4, ESRCRP, HBCA, HCV, HBSAB, C-UR, GN809 #### [facility] [address] [facility], [address] LEUK. ESTERASE Negative Normal (NEG) [facility] Comment on above: Order Comment: FACIL ITY: [facility] O [id number] Performed By: #### U AFLX, PCR-R, C3-C4, ESRCRP, HBCA, HCV, HBSAB, C-UR, GN809 #### [facility] [address] [facility], [address] Mucus Ql (Urine sed) NONE Normal (NONE - OCC) [facility] Comment on above: Order Comment: FACIL ITY: [facility] [id number] Performed By: #### U AFLX, PCR-R, C3-C4, ESRCRP, HBCA, HCV, HBSAB, C-UR, GN809 #### [facility] [address] [facility], [address] Nitrite Ql (U) Negative Normal (NEG) [facility] Comment on above: Order Comment: FACIL ITY: [facility] [id number] Performed By: #### U AFLX, PCR-R, C3-C4, ESRCRP, HBCA, HCV, HBSAB, C-UR, GN809 #### [facility] [address] [facility], [address] OCCULT BLD. Negative Normal (NEG) [facility] Comment on above: Order Comment: FACIL ITY: [facility] [id number] Performed By: #### U AFLX, PCR-R, C3-C4, ESRCRP, HBCA, HCV, HBSAB, C-UR, GN809 #### [facility] [address] [facility], [address] pH (U) 6.5 [pH] Normal (5.0 - 9.0) [facility] Comment on above: Order Comment: FACIL ITY: [facility] [id number] Performed By: #### U AFLX, PCR-R, C3-C4, ESRCRP, HBCA, HCV, HBSAB, C-UR, GN809 #### [facility] [address] [facility], [address] REFLEX CULTURE ADDED YES High () [facility] on above: Order Comment: FACIL ITY: [facility] O [id number] Performed By: #### U AFLX, PCR-R, C3-C4, ESRCRP, HBCA, HCV, HBSAB, C-UR, GN809 #### [facility] [address] [facility], [address] SP. GRAVITY 1.003 Normal (1.001 - 1.035) [facility] Comment on above: Order Comment: FACIL ITY: [facility] [id number] Performed By: #### U AFLX, PCR-R, C3-C4, ESRCRP, HBCA, HCV, HBSAB, C-UR, GN809 #### [facility] [address] [facility], [address] SQUAMOUS EPI OCC Normal (NONE - OCC) [facility] Comment on above: Order Comment: FACIL ITY: [facility] [id number] Performed By: #### U AFLX, PCR-R, C3-C4, ESRCRP, HBCA, HCV, HBSAB, C-UR, GN809 #### [facility] [address] [facility], [address] UR. RBC 0-2 Normal (0 - 2) [facility] Comment on above: Order Comment: FACIL ITY: [facility] [id number] Performed By: #### U AFLX, PCR-R, C3-C4, ESRCRP, HBCA, HCV, HBSAB, C-UR, GN809 #### [facility] [address] [facility], [address] UR. WBC 0-4 Normal (0 - 4) [facility] Comment on above: Order Comment: FACIL ITY: [facility] [id number] Performed By: #### U AFLX, PCR-R, C3-C4, ESRCRP, HBCA, HCV, HBSAB, C-UR, GN809 #### [facility] [address] [facility], [address] Urobilinogen (U) [Mass/Vol] 0.2 mg/dL Normal (0.2 - <2.0) [facility] Comment on above: Order Comment: [facility] [id number] Performed By: #### U AFLX, PCR-R, C3-C4, ESRCRP, HBCA, HCV, HBSAB, C-UR, GN809 #### [facility] [address] [facility], [address] URINE CULTUREon 07-19-2024 Bacteria identified Cx Nom (U) SENS Normal (. - .) [facility] Comment on above: Performed By: #### C BC-4A, ENA6, ANAFXT, ESRCRP, B12+, VD25, CK, CCP, RHF #### [facility] [address] [facility], [address] ARASELI SUBTYPING (8)on 07-12-19 ANTI CENTROMERE B <0.4 Normal (0.0 - 10.0) [facility] Comment on above: Result Comment: PERF ORMED ON PHADIA EFFECTIVE 08-17-2022 Performed By: #### C BC-4A, ENA6, ANAFXT, ESRCRP, B12+, VD25, CK, CCP, RHF #### [facility] [address] [facility], [address] ANTI ds DNA 1.0 IU/ML Normal (0.0 - 15.0) [facility] Comment on above: Performed By: #### C BC-4A, ENA6, ANAFXT, ESRCRP, B12+, VD25, CK, CCP, RHF #### [facility] [address] [facility], [address] ANTI STEFF-1 <0.3 Normal (0.0 - 10.0) [facility] Comment on above: Performed By: #### C BC-4A, ENA6, ANAFXT, ESRCRP, B12+, VD25, CK, CCP, RHF #### [facility] [address] [facility], [address] ANTI ANALYTICS INTERN (U1RNP) 1.7 U/mL Normal (0.0 - 10.0) [facility] Comment on above: Performed By: #### C BC-4A, ENA6, ANAFXT, ESRCRP, B12+, VD25, CK, CCP, RHF #### [facility] [address] [facility], [address] ANTI SCL 70 0.7 U/mL Normal (0.0 - 10.0) [facility] Comment on above: Performed By: #### C BC-4A, ENA6, ANAFXT, ESRCRP, B12+, VD25, CK, CCP, RHF #### [facility] [address] [facility], [address] ANTI ROBERTS <0.7 Normal (0.0 - 10.0) [facility] Comment on above: Performed By: #### C BC-4A, ENA6, ANAFXT, ESRCRP, B12+, VD25, CK, CCP, RHF #### [facility] [address] [place], [place] [address] [facility], [address] ANTI SSB/LA <0.4 Normal (0.0 - 10.0) [facility] Comment on above: Performed By: #### C BC-4A, ENA6, ANAFXT, ESRCRP, B12+, VD25, CK, CCP, RHF #### [facility] [address] [place], [place] [address] [facility], [address] SSA/RO52 0.7 U/mL Normal (0.0 - 10.0) [facility] Comment on above: Performed By: #### C BC-4A, ENA6, ANAFXT, ESRCRP, B12+, VD25, CK, CCP, RHF #### [facility] [address] [facility], [address] SSA/RO60 <0.4 Normal (0.0 - 10.0) [facility] Comment on above: Performed By: #### C BC-4A, ENA6, ANAFXT, ESRCRP, B12+, VD25, CK, CCP, RHF #### [facility] [address] [facility], [id number] ARASELI(+) REFLEX TOSHA TESTSon ARASELI by HEp-2 CELLS Positive High (NEG - NEG) [facility] Comment on above: Performed By: #### C BC-4A, ENA6, ANAFXT, ESRCRP, B12+, VD25, CK, CCP, RHF #### [facility] [address] [facility], [address] ARASELI TITER 1:320 High (<1:40 - 1:40) [facility] Comment on above: Result Comment: ARASELI PATTERN = NUCLEOLAR Performed By: #### C BC-4A, ENA6, ANAFXT, ESRCRP, B12+, VD25, CK, CCP, RHF #### [facility] [address] [facility], [address] TOSHA-6 REFLEXED YES High () [facility] Comment on above: Performed By: #### C BC-4A, ENA6, ANAFXT, ESRCRP, B12+, VD25, CK, CCP, RHF #### [facility] [address] [facility], [id number] CBC/ALB/ALT/AST/ALK/CRon Albumin [Mass/Vol] 3.5 g/dL Normal (3.5 - 5.0) [facility] Comment on above: Order Comment: FACIL ITY: [facility] [id number] Performed By: #### C BC-4A, ENA6, ANAFXT, ESRCRP, B12+, VD25, CK, CCP, RHF #### [facility] [address] [facility], [id number] ALK PHOS 83 U/L Normal (38 - 126) [facility] Comment on above: Order Comment: FACIL ITY: [facility] O [id number] Performed By: #### C BC-4A, ENA6, ANAFXT, ESRCRP, B12+, VD25, CK, CCP, RHF #### [facility] [address] [facility], [address] ALT [Catalytic activity/Vol] 19 U/L Normal (1 - 35) [facility] Comment on above: Order Comment: FACIL ITY: [facility] [id number] Performed By: #### C BC-4A, ENA6, ANAFXT, ESRCRP, B12+, VD25, CK, CCP, RHF #### [facility] [address] [facility], [address] AST [Catalytic activity/Vol] 20 U/L Normal (15 - 46) [facility] Comment on above: Order Comment: FACIL ITY: [facility] [id number] Performed By: #### C BC-4A, ENA6, ANAFXT, ESRCRP, B12+, VD25, CK, CCP, RHF #### [facility] [address] [facility], [address] Creatinine [Mass/Vol] 0.52 mg/dL Normal (0.52 - 1.04) [facility] Comment on above: Order Comment: FACIL ITY: [facility] [id number] Performed By: #### C BC-4A, ENA6, ANAFXT, ESRCRP, B12+, VD25, CK, CCP, RHF #### [facility] [address] [facility], [address] GFR by CKD-EPI 104.3 ML/M1.7 Normal (60.0) [facility] Comment on above: Order Comment: FACIL ITY: [facility] [id number] Performed By: #### C BC-4A, ENA6, ANAFXT, ESRCRP, B12+, VD25, CK, CCP, RHF #### [facility] [address] [facility], [address] Hematocrit (Bld) [Volume fraction] 44.0 % Normal (37.0 - 47.0) [facility] Comment on above: Order Comment: FACIL ITY: [facility] [id number] Performed By: #### C BC-4A, ENA6, ANAFXT, ESRCRP, B12+, VD25, CK, CCP, RHF #### [facility] [address] [facility], [address] Hemoglobin (Bld) [Mass/Vol] 14.6 g/dL Normal (12.0 - 16.0) [facility] Comment on above: Order Comment: FACIL ITY: [facility] [id number] Performed By: #### C BC-4A, ENA6, ANAFXT, ESRCRP, B12+, VD25, CK, CCP, RHF #### [facility] [address] [facility], [address] MCH (RBC) [Entitic mass] 32.6 pg Normal (27.0 - 33.0) [facility] Comment on above: Order Comment: FACIL ITY: [facility] [id number] Performed By: #### C BC-4A, ENA6, ANAFXT, ESRCRP, B12+, VD25, CK, CCP, RHF #### [facility] [address] [facility], [address] MCHC (RBC) [Mass/Vol] 33.2 g/dL Normal (30.0 - 37.0) [facility] Comment on above: Order Comment: FACIL ITY: [facility] [id number] Performed By: #### C BC-4A, ENA6, ANAFXT, ESRCRP, B12+, VD25, CK, CCP, RHF #### [facility] [address] [facility], [address] MCV (RBC) [Entitic vol] 98.2 fL Normal (81.0 - 99.0) [facility] Comment on above: Order Comment: FACIL ITY: [facility] [id number] Performed By: #### C BC-4A, ENA6, ANAFXT, ESRCRP, B12+, VD25, CK, CCP, RHF #### [facility] [address] [facility], [address] PLT 180 x10^3ul Normal (130 - 400) [facility] Comment on above: Order Comment: FACIL ITY: [facility] [id number] Performed By: #### C BC-4A, ENA6, ANAFXT, ESRCRP, B12+, VD25, CK, CCP, RHF #### [facility] [address] [facility], [address] RBC 4.48 x10^6ul Normal (4.20 - 5.40) [facility] Comment on above: Order Comment: FACIL ITY: [facility] [id number] Performed By: #### C BC-4A, ENA6, ANAFXT, ESRCRP, B12+, VD25, CK, CCP, RHF #### [facility] [address] [facility], [address] WBC 9.16 x10^3ul Normal (3.80 - 10.60) [facility] Comment on above: Order Comment: FACIL ITY: [facility] [id number] Performed By: #### C BC-4A, ENA6, ANAFXT, ESRCRP, B12+, VD25, CK, CCP, RHF #### [facility] [address] [facility], [address] CPKon 07-11-2024 CK [Catalytic activity/Vol] 36 U/L Normal (30 - 135) [facility] Comment on above: Performed By: #### C BC-4A, ENA6, ANAFXT, ESRCRP, B12+, VD25, CK, CCP, RHF #### [facility] [address] [facility], [address] RF FACTORon 07-11-2024 RF FACTOR 9 IU/ML Normal (0 - 12) [facility] Comment on above: Performed By: #### C BC-4A, ENA6, ANAFXT, ESRCRP, B12+, VD25, CK, CCP, RHF #### [facility] [address] [facility], [address] SED RATE - CRPon 07-11-2024 CRP EXTENDED RANGE 62.86 MG/L High (0.00 - 5.00) [facility] Comment on above: Performed By: #### C BC-4A, ENA6, ANAFXT, ESRCRP, B12+, VD25, CK, CCP, RHF #### [facility] [address] [facility], [address] SED RATE WEST. 57 MM/HR High (0 - 25) [facility] Comment on above: Performed By: #### C BC-4A, ENA6, ANAFXT, ESRCRP, B12+, VD25, CK, CCP, RHF #### [facility] [address] [facility], [address] VIT B12 AND FOLATEon 025 Cobalamin (Vitamin B12) [Mass/Vol] 529 pg/mL Normal (239 - 931) [facility] Comment on above: Performed By: #### C BC-4A, ENA6, ANAFXT, ESRCRP, B12+, VD25, CK, CCP, RHF #### [facility] [address] [facility], [address] FOLIC ACID 2.3 NG/ML Low (2.8 - 20.0) [facility] Comment on above: Performed By: #### C BC-4A, ENA6, ANAFXT, ESRCRP, B12+, VD25, CK, CCP, RHF #### [facility] [address] [facility], [address] VITAMIN D, 25 HYDROXYon 06-29 VITAMIN D, 25 46.7 NG/ML Normal (30.0 - 100.0) [facility] Comment on above: Result Comment: * * * VITAMIN D, 25 HYDROXY GENERAL GUIDELINE * * * DEFICIENCY = < OR = 20.0 NG/ML INSUFFICIENCY = 20.1 - 29.9 NG/ML SUFFICIENCY = 30.0 - 100.0 NG/ML TOXICITY = > 100.1 NG/ML Performed By: #### C BC-4A, ENA6, ANAFXT, ESRCRP, B12+, VD25, CK, CCP, RHF #### [facility] [address] [facility], [address] US HEAD NECK SOFT TISSUEon 0 06-30-2024 US HEAD NECK SOFT TISSUE US HEAD NECK SOFT TISSUE Reason for exam: Swollen lymph nodes Technique: Grayscale and color Doppler were performed of the soft tissues below the left ear. FINDINGS: There is an oval, hypoechoic structure with internal blood flow in the area of the lump below the left ear measuring approximately 2.1 x 1.3 cm. No evidence of hyperemia around this structure. IMPRESSION: Left infra-auricular lymphadenopathy. Given the history of a recent tooth abscess this may be a reactive lymph node. Clinical follow-up is recommended. Dictated on: 06/30/2024 6:06 PM This report has been electronically signed and approved by the interpreting Radiologist. Normal Not Available X-ray reportOrdered By: Beba Newman on 06-29-2024 Study report [facility] [place] [address] XRay Report Signed Patient: Kaylynn Talamantes MR#: [id number] : 1960 Acct:[id number] Age/Sex: 64 / F ADM Date: 5 Loc: XD Room: Type: [facility] [address] Attending Dr: Grisel Garner NP Copies to: Grisel Garner NP~ Ordering Provider: Grisel Garner NP Date of Service: 06/29/24 XR/XR cervical spine w flex/ext: M54.2 - Cervicalgia CERVICAL SPINE WITH FLEXION AND EXTENSION VIEWS - 7 views: CLINICAL HISTORY: Neck pain that radiates to the shoulders. Intermittent numbness at the hands with abduction. COMPARISON: None TECHNIQUE: AP, lateral (neutral, flexion, extension) both oblique and odontoid views were obtained. FINDINGS: There is osteopenia. There is a reversal the normal cervical lordosis. There is to 3 mm of retrolisthesis of C4 on C5. Alignment does not change significantly with flexion or extension. There is disc space narrowing from C4 - 5 down. Endplate spurring and facet hypertrophy. There is no significant neural foraminal narrowing on the left. On the right, there is potential bony foraminal encroachment at C2-3 and from C4 - 5 down however this may in part be positional. The atlantoaxial relationship is preserved. There is no prevertebral soft tissue swelling. XR/XR cervical spine w flex/ext IMPRESSION: OSTEOPENIA AND DEGENERATIVE CHANGES, DESCRIBED. Impression dictated by: Tonja Newman M.D. 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 Intermittent numbness at the hands with abduction. COMPARISON: None TECHNIQUE: AP, lateral (neutral, flexion, extension) both oblique and odontoid views were obtained. FINDINGS: There is osteopenia. There is a reversal the normal cervical lordosis. There is to 3 mm of retrolisthesis of C4 on C5. Alignment does not change significantly with flexion or extension. There is disc space narrowing from C4 - 5 down. Endplate spurring and facet hypertrophy. There is no significant neural foraminal narrowing on the left. On the right, there is potential bony foraminal encroachment at C2-3 and from C4 - 5 down however this may in part be positional. The atlantoaxial relationship is preserved. There is no prevertebral soft tissue swelling. XR/XR cervical spine w flex/ext IMPRESSION: OSTEOPENIA AND DEGENERATIVE CHANGES, DESCRIBED. Impression dictated by: Tonja Newman M.D. 06/29/2024 5:40 PM Dictation Location: [place] [address] Transcribed By: [facility] 06/29/241739 Dictated By: Tonja Newman MD 06/29/241735 Signed By: 06/29/241739 Normal [facility] Basophils Auto (Bld) [#/Vol] Ordered By: Myriam Lebron on 06-27-2024 Basophils (Bld) [#/Vol] Automated basophil count 0.0-0.2 [facility] Basophils/100 WBC Auto (Bld) Ordered By: Myriam Lebron on 06-27-2024 Basophils/100 WBC (Bld) Automated basophil % . [facility] Complete Blood Count Auto Di ffon 06-27-2024 Basophils (Bld) [#/Vol] 0.1 10*3/uL Normal 0.0-0.2 [facility] Comment on above: Result Comment: PERF ORMED BY: [place] [address] PATHOLOGIST PUBLIC RELATIONS COUNSELOR NIRAJ MAO M.D. Performed By: #### H S TROP, CMP, LACTIC, CBC, MG #### [address] Basophils/100 WBC (Bld) 0.7 % Normal . [facility] Comment on above: Performed By: #### H S TROP, CMP, LACTIC, CBC, MG #### [facility] [address] [place] [address] [place] Eosinophils (Bld) [#/Vol] 0.1 10*3/uL Normal 0.0-0.45 [facility] Comment on above: Performed By: #### H S TROP, CMP, LACTIC, CBC, MG #### [address] Eosinophils/100 WBC (Bld) 1.7 % Normal . [facility] Comment on above: Performed By: #### H S TROP, CMP, LACTIC, CBC, MG #### [address] Erythrocyte distribution width (RBC) [Ratio] 12.7 % Normal 11.9-15.3 [facility] Comment on above: Performed By: #### H S TROP, CMP, LACTIC, CBC, MG #### [address] Hematocrit (Bld) [Volume fraction] 42.3 % Normal 34.0-46.4 [facility] Comment on above: Performed By: #### H S TROP, CMP, LACTIC, CBC, MG #### [address] Hemoglobin (Bld) [Mass/Vol] 14.7 g/dL Normal 11.8-15.4 [facility] Comment on above: Performed By: #### H S TROP, CMP, LACTIC, CBC, MG #### [address] Lymphocytes (Bld) [#/Vol] 2.8 10*3/uL Normal 1.00-4.8 [facility] Comment on above: Performed By: #### H S TROP, CMP, LACTIC, CBC, MG #### [place] [address] [place] Lymphocytes/100 WBC (Bld) 37.8 % Normal . [facility] Comment on above: Performed By: #### H S TROP, CMP, LACTIC, CBC, MG #### [address] MCH (RBC) [Entitic mass] 32.9 pg Normal 24.7-34.3 [facility] Comment on above: Performed By: #### H S TROP, CMP, LACTIC, CBC, MG #### [address] MCV (RBC) [Entitic vol] 94.8 fL Normal 80-100 [facility] Comment on above: Performed By: #### H S TROP, CMP, LACTIC, CBC, MG #### [address] Mean Corpuscular HGB Conc 34.7 g/dL Normal 32.0-35.0 [facility] Comment on above: Performed By: #### H S TROP, CMP, LACTIC, CBC, MG #### [address] Monocytes (Bld) [#/Vol] 0.7 10*3/uL Normal 0.0-0.8 [facility] Comment on above: Performed By: #### H S TROP, CMP, LACTIC, CBC, MG #### [address] Monocytes/100 WBC (Bld) 10.1 % Normal . [facility] Comment on above: Performed By: #### H S TROP, CMP, LACTIC, CBC, MG #### [address] Neutrophils (Bld) [#/Vol] 3.7 10*3/uL Normal 1.8-7.7 [facility] Comment on above: Performed By: #### H S TROP, CMP, LACTIC, CBC, MG #### [address] Neutrophils/100 WBC (Bld) 49.7 % Normal . [facility] Comment on above: Performed By: #### H S TROP, CMP, LACTIC, CBC, MG #### [address] NRBC% 0.1 /100{WBC} Normal 0-0.5 [facility] Comment on above: Performed By: #### H S TROP, CMP, LACTIC, CBC, MG #### [facility] [address] Platelet mean volume (Bld) [Entitic vol] 9.9 fL Normal 6.3-10.7 [facility] Comment on above: Performed By: #### H S TROP, CMP, LACTIC, CBC, MG #### [facility] [address] Platelets (Bld) [#/Vol] 165 10*3/uL Normal 150-450 [facility] Comment on above: Performed By: #### H S TROP, CMP, LACTIC, CBC, MG #### [facility] [address] RBC (Bld) [#/Vol] 4.46 10*6/uL Normal 3.60-5.00 [facility] Comment on above: Performed By: #### H S TROP, CMP, LACTIC, CBC, MG #### [facility] [address] WBC (Bld) [#/Vol] 7.4 10*3/uL Normal 3.8-11.6 [facility] Comment on above: Performed By: #### H S TROP, CMP, LACTIC, CBC, MG #### [facility] [address] Eosinophils Auto (Bld) [#/Vo l]Ordered By: Myriam Lebron on 06-27-2024 Eosinophils (Bld) [#/Vol] Automated eosinophil count 0.0-0.45 [facility] Eosinophils/100 WBC Auto (Bl d)Ordered By: Myriam Lebron on 06-27-2024 Eosinophils/100 WBC (Bld) Automated eosinophil % . [facility] Erythrocyte distribution wid th Auto (RBC) [Ratio]Ordered By: Myriam Lebron on 06-27-2024 Erythrocyte distribution width (RBC) [Ratio] Erythrocyte distribution width [Ratio] by Automated count 11.9-15.3 [facility] Ferritinon 06-27-2024 Ferritin [Mass/Vol] 250.7 ng/mL Normal 11.0-306.8 [facility] Comment on above: Result Comment: PERF ORMED BY: [place] [address] PATHOLOGIST PUBLIC RELATIONS COUNSELOR NIRAJ MAO M.D. Performed By: #### H S TROP, CMP, LACTIC, CBC, MG #### [facility] [address] [place] [address] Ferritin [Mass/volume] in Se rum or PlasmaOrdered By: Myriam Lebron on 06-27-2024 Ferritin [Mass/Vol] Ferritin [Mass/volum e] in Serum or Plasma 11.0-306.8 [facility] Hematocrit Auto (Bld) [Volum e fraction]Ordered By: Myriam Lebron on 06-27-2024 Hematocrit (Bld) [Volume fraction] Hematocrit [Volume Fraction] of Blood by Automated count 34.0-46.4 [facility] Hemoglobin [Mass/volume] in BloodOrdered By: Myriam Lebron on 06-27-2024 Hemoglobin (Bld) [Mass/Vol] Hemoglobin [Mass/volume] in Blood 11.8-15.4 [facility] Iron [Mass/volume] in Serum or PlasmaOrdered By: Myriam Lebron on 06-27-2024 Iron [Mass/Vol] Iron [Mass/volume] i n Serum or Plasma 50-212 [facility] Iron and TIBC Profileon 05-31 % Iron Saturation 21.9 % Normal 20-50 [facility] Comment on above: Performed By: #### H S TROP, CMP, LACTIC, CBC, MG #### [facility] [address] [place] [address] Iron [Mass/Vol] 60 ug/dL Normal 50-212 [facility] Comment on above: Performed By: #### H S TROP, CMP, LACTIC, CBC, MG #### [address] Total Iron Binding Capacity 274 ug/dL Normal 255-450 [facility] Comment on above: Performed By: #### H S TROP, CMP, LACTIC, CBC, MG #### [address] [place] [address] [facility] Transferrin [Mass/Vol] 196 mg/dL Low 203-362 [facility] Comment on above: Performed By: #### H S TROP, CMP, LACTIC, CBC, MG #### [facility] [address] [place] [id number] [facility] Leukocytes [#/volume] correc giovanna for nucleated erythrocytes in Blood by Automated counOrdered By: Myriam Lebron on 06-27-2024 WBC corrected for nucl RBC Auto (Bld) [#/Vol] Leukocytes [#/volume] corrected for nucleated erythrocytes in Blood by Automated coun 3.8-11.6 [facility] Lymphocytes Auto (Bld) [#/Vo l]Ordered By: Myriam Lebron on 06-27-2024 Lymphocytes (Bld) [#/Vol] Lymphocytes [#/volume] in Blood by Automated count 1.00-4.8 [facility] Lymphocytes/100 WBC Auto (Bl d)Ordered By: Myriam Lebron on 06-27-2024 Lymphocytes/100 WBC (Bld) Lymphocytes/100 leukocytes in Blood by Automated count . [facility] MCH Auto (RBC) [Entitic mass ]Ordered By: Myriam Lebron on 06-27-2024 MCH (RBC) [Entitic mass] MCH [Entitic mass] by Automated count 24.7-34.3 [facility] MCHC Auto (RBC) [Mass/Vol]Or dered By: Myriam Lebron on 06-27-2024 MCHC (RBC) [Mass/Vol] MCHC [Mass/volume] by Automated count 32.0-35.0 [facility] MCV Auto (RBC) [Entitic vol] Ordered By: Myriam Lebron on 06-27-2024 MCV (RBC) [Entitic vol] MCV [Entitic volume] by Automated count 80-100 [facility] Monocytes Auto (Bld) [#/Vol] Ordered By: Myriam Lebron on 06-27-2024 Monocytes (Bld) [#/Vol] Automated blood monocyte count 0.0-0.8 [facility] Monocytes/100 WBC Auto (Bld) Ordered By: Myriam Lebron on 06-27-2024 Monocytes/100 WBC (Bld) Automated monocyte % . [facility] Neutrophils Auto (Bld) [#/Vo l]Ordered By: Myriam Lebron on 06-27-2024 Neutrophils (Bld) [#/Vol] Neutrophils [#/volume] in Blood by Automated count 1.8-7.7 [facility] Neutrophils/100 WBC Auto (Bl d)Ordered By: Myriam Lebron on 06-27-2024 Neutrophils/100 WBC (Bld) Automated neutrophil % . [facility] Nucleated erythrocytes [Pres ence] in Blood by Automated countOrdered By: Myriam Lebron on 06-27-2024 Nucleated RBC Auto Ql (Bld) Nucleated erythrocytes [Presence] in Blood by Automated count 0-0.5 [facility] Platelet mean volume Auto (B ld) [Entitic vol]Ordered By: Myriam Lebron on 06-27-2024 Platelet mean volume (Bld) [Entitic vol] Platelet mean volume [Entitic volume] in Blood by Automated count 6.3-10.7 [facility] Platelets Auto (Bld) [#/Vol] Ordered By: Myriam Lebron on 06-27-2024 Platelets (Bld) [#/Vol] Platelets [#/volume] in Blood by Automated count 150-450 [facility] RBC Auto (Bld) [#/Vol]Ordere d By: Myriam Lebron on 06-27-2024 RBC (Bld) [#/Vol] Erythrocytes [#/volu me] in Blood by Automated count 3.60-5.00 [facility] Serum or plasma iron binding capacity measurement (mass/volume)Ordered By: Myriam Lebron on 06-27-2024 Iron binding capacity [Mass/Vol] Iron binding capacity [Mass/volume] in Serum or Plasma 255-450 [facility] Serum or plasma iron saturat ion measurement (mass fraction)Ordered By: Myriam Merlos on 06-27-2024 Iron saturation [Mass fraction] Iron saturation [Mass Fraction] in Serum or Plasma 20-50 [facility] Transferrin [Mass/volume] in Serum or PlasmaOrdered By: Myriam Lebron on 06-27-2024 Transferrin [Mass/Vol] Transferrin [Mass /volume] in Serum or Plasma Low 203-362 [facility] WBC Auto (Bld) [#/Vol]Ordere d By: Myriam Lebron on 06-27-2024 WBC (Bld) [#/Vol] Leukocytes [#/volume ] in Blood by Automated count 3.8-11.6 [facility] Alanine aminotransferase [En zymatic activity/volume] in Serum or PlasmaOrdered By: Myriam Lebron on 05-19-2024 ALT [Catalytic activity/Vol] Alanine aminotransferase [Enzymatic activity/volume] in Serum or Plasma 7-52 [facility] Albumin [Mass/volume] in Ser um or Plasma by Bromocresol green (BCG) dye binding methoOrdered By: Myriam Lebron on 05-19-2024 Albumin BCG dye [Mass/Vol] Albumin [Mass/volume] in Serum or Plasma by Bromocresol green (BCG) dye binding metho 3.5-5.7 [facility] Alkaline phosphatase [Enzyma tic activity/volume] in Serum or PlasmaOrdered By: Myriam Lebron on 05-19-2024 ALP [Catalytic activity/Vol] Alkaline phosphatase [Enzymatic activity/volume] in Serum or Plasma 34-104 [facility] Aspartate aminotransferase [ Enzymatic activity/volume] in Serum or PlasmaOrdered By: Myriam Lebron on 05-19-2024 AST [Catalytic activity/Vol] Aspartate aminotransferase [Enzymatic activity/volume] in Serum or Plasma 13-39 [facility] Basophils Auto (Bld) [#/Vol] Ordered By: Myriam Lebron on 05-19-2024 Basophils (Bld) [#/Vol] Automated basophil count 0.0-0.2 [facility] Basophils/100 WBC Auto (Bld) Ordered By: Myriam Lebron on 05-19-2024 Basophils/100 WBC (Bld) Automated basophil % . [facility] Bilirubin.total [Mass/volume ] in Serum or PlasmaOrdered By: Myriam Lebron on 05-19-2024 Bilirubin [Mass/Vol] Bilirubin.total [Mass/volume] in Serum or Plasma 0.3-1.0 [facility] Calcium [Mass/volume] in Ser um or PlasmaOrdered By: Myriam Lebron on 05-19-2024 Calcium [Mass/Vol] Calcium [Mass/volume ] in Serum or Plasma 8.6-10.3 [facility] Carbon dioxide, total [Moles /volume] in Serum or PlasmaOrdered By: Myriam Merlos on 05-19-2024 CO2 [Moles/Vol] Carbon dioxide, tota l [Moles/volume] in Serum or Plasma 21.0-31.0 [facility] Chloride [Moles/volume] in S loraine or PlasmaOrdered By: vinicio Lebron on 05-19-2024 Chloride [Moles/Vol] Chloride [Moles/vol ume] in Serum or Plasma 98-107 [facility] Complete Blood Count Auto Di ffon 05-19-2024 Basophils (Bld) [#/Vol] 0.0 10*3/uL Normal 0.0-0.2 [facility] Comment on above: Performed By: #### H S TROP, CMP, LACTIC, CBC, MG #### [facility] [address] [place] [address] [place] Basophils/100 WBC (Bld) 0.4 % Normal . [facility] Comment on above: Performed By: #### H S TROP, CMP, LACTIC, CBC, MG #### [facility] [address] [place] [id number] [place] Eosinophils (Bld) [#/Vol] 0.1 10*3/uL Normal 0.0-0.45 [facility] Comment on above: Performed By: #### H S TROP, CMP, LACTIC, CBC, MG #### [facility] [address] [place] [id number] [place] Eosinophils/100 WBC (Bld) 1.3 % Normal . [facility] Comment on above: Performed By: #### H S TROP, CMP, LACTIC, CBC, MG #### [facility] [address] [place] [address] [place] Erythrocyte distribution width (RBC) [Ratio] 12.7 % Normal 11.9-15.3 [facility] Comment on above: Performed By: #### H S TROP, CMP, LACTIC, CBC, MG #### [address] Hematocrit (Bld) [Volume fraction] 44.2 % Normal 34.0-46.4 [facility] Comment on above: Performed By: #### H S TROP, CMP, LACTIC, CBC, MG #### [address] Hemoglobin (Bld) [Mass/Vol] 15.3 g/dL Normal 11.8-15.4 [facility] Comment on above: Performed By: #### H S TROP, CMP, LACTIC, CBC, MG #### [address] Lymphocytes (Bld) [#/Vol] 3.4 10*3/uL Normal 1.00-4.8 [facility] Comment on above: Performed By: #### H S TROP, CMP, LACTIC, CBC, MG #### [address] Lymphocytes/100 WBC (Bld) 47.7 % Normal . [facility] Comment on above: Performed By: #### H S TROP, CMP, LACTIC, CBC, MG #### [address] MCH (RBC) [Entitic mass] 33.0 pg Normal 24.7-34.3 [facility] Comment on above: Performed By: #### H S TROP, CMP, LACTIC, CBC, MG #### [address] MCV (RBC) [Entitic vol] 95.6 fL Normal 80-100 [facility] Comment on above: Performed By: #### H S TROP, CMP, LACTIC, CBC, MG #### [address] Mean Corpuscular HGB Conc 34.6 g/dL Normal 32.0-35.0 [facility] Comment on above: Performed By: #### H S TROP, CMP, LACTIC, CBC, MG #### [address] Monocytes (Bld) [#/Vol] 0.6 10*3/uL Normal 0.0-0.8 [facility] Comment on above: Performed By: #### H S TROP, CMP, LACTIC, CBC, MG #### [address] Monocytes/100 WBC (Bld) 9.0 % Normal . [facility] Comment on above: Performed By: #### H S TROP, CMP, LACTIC, CBC, MG #### [address] Neutrophils (Bld) [#/Vol] 3.0 10*3/uL Normal 1.8-7.7 [facility] Comment on above: Performed By: #### H S TROP, CMP, LACTIC, CBC, MG #### [address] Neutrophils/100 WBC (Bld) 41.6 % Normal . [facility] Comment on above: Performed By: #### H S TROP, CMP, LACTIC, CBC, MG #### [address] NRBC% 0.1 /100{WBC} Normal 0-0.5 [facility] Comment on above: Performed By: #### H S TROP, CMP, LACTIC, CBC, MG #### [address] Platelet mean volume (Bld) [Entitic vol] 10.5 fL Normal 6.3-10.7 [facility] Comment on above: Performed By: #### H S TROP, CMP, LACTIC, CBC, MG #### [address] Platelets (Bld) [#/Vol] 111 10*3/uL Low 150-450 [facility] Comment on above: Performed By: #### H S TROP, CMP, LACTIC, CBC, MG #### [address] RBC (Bld) [#/Vol] 4.62 10*6/uL Normal 3.60-5.00 [facility] Comment on above: Performed By: #### H S TROP, CMP, LACTIC, CBC, MG #### [address] WBC (Bld) [#/Vol] 7.2 10*3/uL Normal 3.8-11.6 [facility] Comment on above: Performed By: #### H S TROP, CMP, LACTIC, CBC, MG #### [address] Comprehensive Metabolic Pane jerrell 05-19-2024 Albumin [Mass/Vol] 4.0 g/dL Normal 3.5-5.7 [facility] Comment on above: Performed By: #### H S TROP, CMP, LACTIC, CBC, MG #### [address] Albumin/Globulin [Mass ratio] 1.6 {ratio} Normal [facility] Comment on above: Performed By: #### H S TROP, CMP, LACTIC, CBC, MG #### [address] ALP [Catalytic activity/Vol] 62 U/L Normal 34-104 [facility] Comment on above: Performed By: #### H S TROP, CMP, LACTIC, CBC, MG #### [address] ALT [Catalytic activity/Vol] 15 U/L Normal 7-52 [facility] Comment on above: Performed By: #### H S TROP, CMP, LACTIC, CBC, MG #### [address] Anion gap [Moles/Vol] 8.8 mmol/L Normal 6.0-15.0 [facility] Comment on above: Performed By: #### H S TROP, CMP, LACTIC, CBC, MG #### [address] AST [Catalytic activity/Vol] 15 U/L Normal 13-39 [facility] Comment on above: Performed By: #### H S TROP, CMP, LACTIC, CBC, MG #### [address] Bilirubin [Mass/Vol] 0.4 mg/dL Normal 0.3-1.0 [facility] Comment on above: Performed By: #### H S TROP, CMP, LACTIC, CBC, MG #### [address] Calcium [Mass/Vol] 9.4 mg/dL Normal 8.6-10.3 [facility] Comment on above: Performed By: #### H S TROP, CMP, LACTIC, CBC, MG #### [address] Chloride [Moles/Vol] 107 mmol/L Normal 98-107 [facility] Comment on above: Performed By: #### H S TROP, CMP, LACTIC, CBC, MG #### [address] CO2 [Moles/Vol] 28.4 mmol/L Normal 21.0-31.0 [facility] Comment on above: Performed By: #### H S TROP, CMP, LACTIC, CBC, MG #### [address] Creatinine [Mass/Vol] 0.61 mg/dL Normal 0.60-1.20 [facility] Comment on above: Performed By: #### H S TROP, CMP, LACTIC, CBC, MG #### [place] [address] [place] Creatinine Clr Calc Pharmacy 113.20 Normal [facility] Comment on above: Performed By: #### H S TROP, CMP, LACTIC, CBC, MG #### [place] [address] [place] GFR/1.73 sq M.predicted MDRD (S/P/Bld) [Vol rate/Area] mL/min/{1.73_m2} Normal [facility] Comment on above: Performed By: #### H S TROP, CMP, LACTIC, CBC, MG #### [facility] [address] [place] [address] [place] Globulin (S) [Mass/Vol] 2.5 g/dL Normal [facility] Comment on above: Performed By: #### H S TROP, CMP, LACTIC, CBC, MG #### [facility] [address] [place] [address] [place] Glucose [Mass/Vol] 85 mg/dL Normal 70-100 [facility] Comment on above: Result Comment: [facility] Glucose Reference Range is dependent on time and content of last meal. Glucose of more than 200 mg/dL in a nonstressed, ambulatory subject supports the diagnosis of Diabetes Mellitus. ADA recommended reference range Performed By: #### H S TROP, CMP, LACTIC, CBC, MG #### [facility] [address] Potassium [Moles/Vol] 4.2 mmol/L Normal 3.5-5.1 [facility] Comment on above: Performed By: #### H S TROP, CMP, LACTIC, CBC, MG #### [facility] [address] [place] [address] [place] Protein [Mass/Vol] 6.5 g/dL Normal 6.4-8.9 [facility] Comment on above: Performed By: #### H S TROP, CMP, LACTIC, CBC, MG #### [facility] [address] [place] [address] [place] Sodium [Moles/Vol] 140 mmol/L Normal 136-145 [facility] Comment on above: Performed By: #### H S TROP, CMP, LACTIC, CBC, MG #### [facility] [address] [place] [address] [place] Urea nitrogen [Mass/Vol] 13 mg/dL Normal 7-25 [facility] Comment on above: Performed By: #### H S TROP, CMP, LACTIC, CBC, MG #### [facility] [address] [place] [address] [place] Creatinine [Mass/volume] in Serum or PlasmaOrdered By: Myriam Lebron on 05-19-2024 Creatinine [Mass/Vol] Creatinine [Mass/v olume] in Serum or Plasma 0.60-1.20 [facility] Eosinophils Auto (Bld) [#/Vo l]Ordered By: Myriam Lebron on 05-19-2024 Eosinophils (Bld) [#/Vol] Automated eosinophil count 0.0-0.45 [facility] Eosinophils/100 WBC Auto (Bl d)Ordered By: Myriam Lebron on 05-19-2024 Eosinophils/100 WBC (Bld) Automated eosinophil % . [facility] Erythrocyte distribution wid th Auto (RBC) [Ratio]Ordered By: Myriam Lebron on 05-19-2024 Erythrocyte distribution width (RBC) [Ratio] Erythrocyte distribution width [Ratio] by Automated count 11.9-15.3 [facility] Erythropoetin (EPO), Serumon 05-19-2024 Erythropoetin (EPO), Serum 12.2 m[iU]/mL Normal 2.6-18.5 [facility] Comment on above: Result Comment: [employer] DxI 800 Immunoassay System Values obtained with different assay methods or kits cannot be used interchangeably. Results cannot be interpreted as absolute evidence of the presence or absence of malignant disease. Performed at: [facility] [place] [id number] [place] Tender: Roscoe Nino PhD, Phone: [phone] PERFORMED BY: [place] [address] PATHOLOGIST PUBLIC RELATIONS COUNSELOR NIRAJ MAO M.D. Performed By: #### H S TROP, CMP, LACTIC, CBC, MG #### [facility] [address] [place], [place] [id number] [facility] Ferritinon 05-19-2024 Ferritin [Mass/Vol] 114.7 ng/mL Normal 11.0-306.8 [facility] Comment on above: Performed By: #### H S TROP, CMP, LACTIC, CBC, MG #### [facility] [address] [place] [address] Ferritin [Mass/volume] in Se rum or PlasmaOrdered By: Myriam Lebron on 05-19-2024 Ferritin [Mass/Vol] Ferritin [Mass/volum e] in Serum or Plasma 11.0-306.8 [facility] Folate [Mass/volume] in Seru m or PlasmaOrdered By: Myriam Lebron on 05-19-2024 Folate [Mass/Vol] Folate [Mass/volume] in Serum or Plasma >5.9 [facility] Comment on above: Folate reference ran ge: >5.9 ng/mlThe WHO technical consultation on folate and vitamin [id number] has determined that folate concentrations lessthan 4 ng/ml are considered deficient. Globulin Calc (S) [Mass/Vol] Ordered By: Myriam Lebron on 05-19-2024 Globulin (S) [Mass/Vol] Serum globulin measurement by calculation (mass/volume) [facility] Glucose [Mass/volume] in Ser um or PlasmaOrdered By: Myriam Lebron on 05-19-2024 Glucose [Mass/Vol] Glucose [Mass/volume ] in Serum or Plasma 70-100 [facility] Comment on above: ADA recommended refe rence rangeRandom Glucose Reference Range is dependent on time and content of last meal. Glucose of more than 200 mg/dL in a nonstressed, ambulatory subject supports the diagnosis of Diabetes Mellitus. Hematocrit Auto (Bld) [Volum e fraction]Ordered By: Myriam Lebron on 05-19-2024 Hematocrit (Bld) [Volume fraction] Hematocrit [Volume Fraction] of Blood by Automated count 34.0-46.4 [facility] Hemoglobin [Mass/volume] in BloodOrdered By: Myriam Lebron on 05-19-2024 Hemoglobin (Bld) [Mass/Vol] Hemoglobin [Mass/volume] in Blood 11.8-15.4 [facility] Iron [Mass/volume] in Serum or PlasmaOrdered By: Myriam Lebron on 05-19-2024 Iron [Mass/Vol] Iron [Mass/volume] i n Serum or Plasma 50-212 [facility] Iron and TIBC Profileon 04-30 % Iron Saturation 33.3 % Normal 20-50 [facility] Comment on above: Performed By: #### H S TROP, CMP, LACTIC, CBC, MG #### [facility] [address] Iron [Mass/Vol] 117 ug/dL Normal 50-212 [facility] Comment on above: Performed By: #### H S TROP, CMP, LACTIC, CBC, MG #### [facility] [address] Total Iron Binding Capacity 351 ug/dL Normal 255-450 [facility] Comment on above: Performed By: #### H S TROP, CMP, LACTIC, CBC, MG #### [facility] [address] [place] [address] [place] Transferrin [Mass/Vol] 251 mg/dL Normal 203-362 [facility] Comment on above: Performed By: #### H S TROP, CMP, LACTIC, CBC, MG #### [facility] [address] ROCIO 2 [employer] ROCIO 2 Neogenomic Normal [facility] Comment on above: Result Comment: See report. Scanned copy available in EMR. PERFORMED BY: [place] [address] PATHOLOGIST PUBLIC RELATIONS COUNSELOR NIRAJ MAO M.D. Performed By: #### H S TROP, CMP, LACTIC, CBC, MG #### [facility] [address] Leukocytes [#/volume] correc giovanna for nucleated erythrocytes in Blood by Automated counOrdered By: Myriam Lebron on 05-19-2024 WBC corrected for nucl RBC Auto (Bld) [#/Vol] Leukocytes [#/volume] corrected for nucleated erythrocytes in Blood by Automated coun 3.8-11.6 [facility] Lymphocytes Auto (Bld) [#/Vo l]Ordered By: Myriam Lebron on 05-19-2024 Lymphocytes (Bld) [#/Vol] Lymphocytes [#/volume] in Blood by Automated count 1.00-4.8 [facility] Lymphocytes/100 WBC Auto (Bl d)Ordered By: Myriam Lebron on 05-19-2024 Lymphocytes/100 WBC (Bld) Lymphocytes/100 leukocytes in Blood by Automated count . [facility] MCH Auto (RBC) [Entitic mass ]Ordered By: Myriam Lebron on 05-19-2024 MCH (RBC) [Entitic mass] MCH [Entitic mass] by Automated count 24.7-34.3 [facility] MCHC Auto (RBC) [Mass/Vol]Or dered By: Myriam Lebron on 05-19-2024 MCHC (RBC) [Mass/Vol] MCHC [Mass/volume] by Automated count 32.0-35.0 [facility] MCV Auto (RBC) [Entitic vol] Ordered By: Myriam Lebron on 05-19-2024 MCV (RBC) [Entitic vol] MCV [Entitic volume] by Automated count 80-100 [facility] Monocytes Auto (Bld) [#/Vol] Ordered By: Myriam Lebron on 05-19-2024 Monocytes (Bld) [#/Vol] Automated blood monocyte count 0.0-0.8 [facility] Monocytes/100 WBC Auto (Bld) Ordered By: Myriam Lebron on 05-19-2024 Monocytes/100 WBC (Bld) Automated monocyte % . [facility] Neutrophils Auto (Bld) [#/Vo l]Ordered By: Myriam Lebron on 05-19-2024 Neutrophils (Bld) [#/Vol] Neutrophils [#/volume] in Blood by Automated count 1.8-7.7 [facility] Neutrophils/100 WBC Auto (Bl d)Ordered By: Myriam Lebron on 05-19-2024 Neutrophils/100 WBC (Bld) Automated neutrophil % . [facility] No Panel InformationOrdered By: Myriam Lebron on 05-19-2024 Estimated GFR (CKD-EPI) > 60.0 mL/Min [facility] JAK2 [id number] See comment [facility] Comment on above: See report. Scanned copy available in EMR. Pharmacy Creatinine Clearance (Chem 113.20 [facility] Nucleated erythrocytes [Pres ence] in Blood by Automated countOrdered By: Myriam Lebron on 05-19-2024 Nucleated RBC Auto Ql (Bld) Nucleated erythrocytes [Presence] in Blood by Automated count 0-0.5 [facility] Platelet mean volume Auto (B ld) [Entitic vol]Ordered By: vinicio Lebron on 05-19-2024 Platelet mean volume (Bld) [Entitic vol] Platelet mean volume [Entitic volume] in Blood by Automated count 6.3-10.7 [facility] Platelets Auto (Bld) [#/Vol] Ordered By: vinicio Lebron on 05-19-2024 Platelets (Bld) [#/Vol] Platelets [#/volume] in Blood by Automated count Low 150-450 [facility] Potassium [Moles/volume] in Serum or PlasmaOrdered By: [facility] on 05-19-2024 Potassium [Moles/Vol] Potassium [Moles/v olume] in Serum or Plasma 3.5-5.1 [facility] Protein [Mass/volume] in Ser um or PlasmaOrdered By: [facility] Protein [Mass/Vol] Protein [Mass/volume ] in Serum or Plasma 6.4-8.9 [facility] RBC Auto (Bld) [#/Vol]Ordere d By: vinicio Lebron on 05-19-2024 RBC (Bld) [#/Vol] Erythrocytes [#/volu me] in Blood by Automated count 3.60-5.00 [facility] Reticulocyte Counton 025 Reticulocyte Number 0.068 10*6/uL Normal 0.024-0 .08 4 [facility] Comment on above: Result Comment: PERF ORMED BY: [place] [address] PATHOLOGIST PUBLIC RELATIONS COUNSELOR NIRAJ MAO M.D. Performed By: #### H S TROP, CMP, LACTIC, CBC, MG #### [address] Reticulocyte Percent 1.5 % Normal 0.5-1.5 [facility] Comment on above: Performed By: #### H S TROP, CMP, LACTIC, CBC, MG #### [facility] [address] Reticulocytes [#/volume] in BloodOrdered By: Myriam Lebron on 05-19-2024 Reticulocytes (Bld) [#/Vol] Absolute reticulocyte count 0.024-0.08 4 [facility] Reticulocytes/100 RBC Auto ( Bld)Ordered By: Myriam Lebron on 05-19-2024 Reticulocytes/100 RBC (Bld) Reticulocyte % auto 0.5-1.5 [facility] Serum or plasma albumin/glob ulin mass ratioOrdered By: Myriam Lebron on 05-19-2024 Albumin/Globulin [Mass ratio] Serum or plasma albumin/globulin mass ratio [facility] Serum or plasma anion gap de terminationOrdered By: Myriam Lebron on 05-19-2024 Anion gap [Moles/Vol] Serum or plasma an ion gap determination 6.0-15.0 [facility] Serum or plasma erythropoiet in (EPO) measurement (units/volume)Ordered By: Myriam Lebron on 05-19-2024 Erythropoietin (EPO) Qn Serum or plasma erythropoietin (EPO) measurement (units/volume) 2.6-18.5 [facility] Comment on above: [employer] DxI 800 Immunoassay SystemValues obtained with different assay methods or kits cannotbe used interchangeably. Results cannot be interpreted asabsolute evidence of the presence or absence of malignantdisease.Performed at: - [address] [id number] Director: Roscoe Nino PhD, Phone: [phone] Serum or plasma iron binding capacity measurement (mass/volume)Ordered By: Myriam Lebron on 05-19-2024 Iron binding capacity [Mass/Vol] Iron binding capacity [Mass/volume] in Serum or Plasma 255-450 [facility] Serum or plasma iron saturat ion measurement (mass fraction)Ordered By: Myriam Merlos on 05-19-2024 Iron saturation [Mass fraction] Iron saturation [Mass Fraction] in Serum or Plasma 20-50 [facility] Sodium [Moles/volume] in Ser um or PlasmaOrdered By: Myriam Lebron on 05-19-2024 Sodium [Moles/Vol] Sodium [Moles/volume ] in Serum or Plasma 136-145 [facility] Transferrin [Mass/volume] in Serum or PlasmaOrdered By: Myriam Lebron on 05-19-2024 Transferrin [Mass/Vol] Transferrin [Mass /volume] in Serum or Plasma 203-362 [facility] Urea nitrogen [Mass/volume] in Serum or PlasmaOrdered By: Myriam Lebron on 05-19-2024 Urea nitrogen [Mass/Vol] Urea nitrogen [Mass/volume] in Serum or Plasma 7-25 [facility] Vit. B12/Folate Profileon Cobalamin (Vitamin B12) [Mass/Vol] 213 pg/mL Normal 180-914 [facility] Comment on above: Performed By: #### H S TROP, CMP, LACTIC, CBC, MG #### [facility] [address] Folate 8.2 ng/mL Normal >5.9 [facility] Comment on above: Result Comment: Maggie te reference range: >5.9 ng/ml The WHO technical consultation on folate and vitamin b12 deficiencies has determined that folate concentrations less than 4 ng/ml are considered deficient. PERFORMED BY: [place] [address] PATHOLOGIST PUBLIC RELATIONS COUNSELOR NIRAJ MAO M.D. Performed By: #### H S TROP, CMP, LACTIC, CBC, MG #### [facility] [address] Vitamin B12 ser/plasOrdered By: Myriam Lebron on 05-19-2024 Cobalamin (Vitamin B12) [Mass/Vol] Vitamin B12 ser/plas 180-914 [facility] WBC Auto (Bld) [#/Vol]Ordere d By: Myriam Lebron on 05-19-2024 WBC (Bld) [#/Vol] Leukocytes [#/volume ] in Blood by Automated count 3.8-11.6 [facility] Laboratory - Drug toxicology on 05-03-2024 Amphetamines Ql (U) Negative [facility] Benzodiazepines Ql (U) Negative [facility] Cocaine Ql (U) Negative [facility] Opiates Ql (U) Positive [facility] Phencyclidine Ql (U) Negative [facility] No Panel Informationon 05-03 Urine Barbiturates Screen Negative [facility] Urine Marijuana (THC) Screen Negative [facility] Laboratory - Chemistry and C hemistry - challengeon 04-01-2024 TSH Qn 1.39 m[IU]/L [facility] No Panel Informationon 04-01 Performing Organizat ion Information Site ID: QPT Name: [employer] [facility] Address: [address] [place] [address], [address] [place] [id number] Director: Kush Ojeda MD [facility] HbA1c (Bld) [Mass fraction]o n 03-31-2024 Interpretation and review of laboratory results Abnormal [facility] Laboratory - Hematology and Cell countson 03-31-2024 HbA1c (Bld) [Mass fraction] 6.1 % [facility] X-ray reportOrdered By: Wisam Patrick on 03-20-2024 Study report [facility] [place] [address] XRay Report Signed Patient: Kaylynn Talamantes MR#: [id number] : 1960 Acct:[id number] Age/Sex: 63 / F ADM Date: 5 Loc: XD Room: Type: [facility] [address] Attending Dr: David La MD Copies to: David La MD~ Ordering Provider: David La MD Date of Service: 03/20/24 XR/XR knee RT 4V*: M25.561 - Pain in right knee ([id number]) XR/XR shoulder LT min 2V*: M25.512 - Pain in left shoulder LEFT SHOULDER - - 3 views right knee 4 views CLINICAL HISTORY: Left anterolateral shoulder pain for months. Generalized right knee pain for years. COMPARISON: None FINDINGS: Left shoulder: Patient is status post rotator cuff repair and Maribel procedure. Mild degenerative changes of the glenohumeral joint. No acute bony process. Right knee: No knee joint effusion. Mild degenerative changes. No acute bony process. XR/XR shoulder LT min 2V* IMPRESSION: MILD DEGENERATIVE CHANGES OF THE LEFT SHOULDER AND RIGHT KNEE WITHOUT ACUTE BONYPROCESS. Impression dictated by: Raghavendra Patrick Jr., D.O.03/20/2024 11:04 AM Dictation Location: [facility]- Transcribed By: [facility] 03/20/24 1104 Dictated By: Raghavendra Patrick Jr, DO 03/20/24 1101 Signed By: 03/20/24 110 [facility] XR knee RT 4V*on 03-20-2024 XR knee RT 4V* [facility] [place] [address] XRay Report Signed Patient: Kaylynn Talamantes MR#: [id number] : 1960 Acct:[id number] Age/Sex: 63 / F ADM Date: 03/20/24 Loc: XD Room: Type: [facility] [address] Attending Dr: David La MD Copies to: David La MD Ordering Provider: David La MD Date of Service: 03/20/24 XR/XR knee RT 4V*: M25.561 - Pain in right knee ([id number]) XR/XR shoulder LT min 2V*: M25.512 - Pain in left shoulder LEFT SHOULDER - - 3 views right knee 4 views CLINICAL HISTORY: Left anterolateral shoulder pain for months. Generalized right knee pain for years. COMPARISON: None FINDINGS: Left shoulder: Patient is status post rotator cuff repair and Maribel procedure. Mild degenerative changes of the glenohumeral joint. No acute bony process. Right knee: No knee joint effusion. Mild degenerative changes. No acute bony process. XR/XR shoulder LT min 2V* IMPRESSION: MILD DEGENERATIVE CHANGES OF THE LEFT SHOULDER AND RIGHT KNEE WITHOUT ACUTE BONY PROCESS. Impression dictated by: Raghavendra Patrick Jr., D.O.03/20/2024 11:04 AM Dictation Location: [place] [address] Transcribed By: [facility] 03/20/24 110 Dictated By: Raghavendra Patrick Jr, 03/20/24 1101 Signed By: 03/20/24 110 Normal [facility] BI MAMMOGRAM SCREENING TOMOS YNTHESIS BILATERALon 12-17-2023 BI MAMMOGRAM SCREENING TOMOSYNTHESIS BILATERAL This is a summary report. The complete report is available in the patient's medical record. If you cannot access the medical record, please contact the sending organization for a detailed fax or copy. Examination: BI MAMMOGRAM SCREENING TOMOSYNTHESIS BILATERAL Clinical [...] Mamm ELECTRONICALLY SIGNED BY: Shantanu Santiago M.D. Normal Not Available CT LUNG SCREENING LOW DOSEon 12-17-2023 CT LUNG SCREENING LOW DOSE This is a summary report. The complete report is available in the patient's medical record. If you cannot access the medical record, please contact the sending organization for a detailed fax or copy. LOW DOSE CT IMAGING OF THE CHEST WITHOUT INTRAVENOUS CONTRAST MEDIUM. HISTORY: Tobacco use. TECHNICAL FACTORS: Without IV contrast axial helical 1.25mm slice thickness low dose images of the chest performed for lung cancer screening. FINDINGS: No suspicious lung nodule, mass, or parenchymal consolidation. Mild pleural based parenchymal bands bilateral lower chest. No pleural or pericardial effusion. No significant mediastinal or hilar lymphadenopathy. IMPRESSION: Lung Rads: LUNGRADS 2 - Benign Follow-up Recommendation: LDCT 1 Year Lung Rads categories Category 0: Incomplete Additional Imaging Categories 1 & 2: Negative/Benign Continue annual screening Category 3: Probable benign 6 month f/u CT Chest wo Category 3s: Clinically significant or potentially clinically significant findings Category 4A/B Suspicious 4A: [address] Chest wo; PET/CT when > 8mm solid nodule component exists 4B: Chest w/ contrast; PET/CT and/or biopsy All CT scans at this facility use dose modulation, iterative reconstruction, and/or weight based dosing when appropriate to reduce radiation dose to as low as reasonably achievable. TRANSCRIBED BY: ELECTRONICALLY SIGNED BY: Raghavendra De La Paz MD Normal Not Available No Panel Informationon 11-18 Bj Moore NP 11/19/2023 9:38 AM L Inj/Asp: L knee on 11/19/2023 9:37 AM Indications: pain Details: anterolateral approach Medications: 40 mg methylPREDNISolone acetate 40 MG/ML Site was cleaned with isopropyl alcohol Consent was given by the patient. [facility] No Panel Informationon 11-04 Elia Kumari DO 11/05/2023 12:48 PM L Inj/Asp: L knee on 11/05/2023 12:42 PM Indications: pain Details: 22 G needle, anterolateral approach Medications: 40 mg methylPREDNISolone acetate 40 MG/ML Outcome: tolerated well, no immediate complications UTILIZING ASEPTIC TECHNIQUE PT GIVEN INJECTION IN LEFT KNEE, NEUROVASC INTACT S/P INJ, TOLERATED WELL Procedure, treatment alternatives, risks and benefits explained, specific risks discussed. Consent was given by the patient. [facility] Laboratory - Drug toxicology on 09-10-2023 Amphetamines Ql (U) Negative [facility] Benzodiazepines Ql (U) Positive [facility] Cocaine Ql (U) Negative [facility] Opiates Ql (U) Negative [facility] Phencyclidine Ql (U) Negative [facility] No Panel Informationon 09-09 Urine Barbiturates Screen Negative [facility] Urine Marijuana (THC) Screen Negative [facility] SCREENING MAMMOGRAM W/YUSEF, BILATERAL*on 10-10-2021 SCREENING MAMMOGRAM W/YUSEF, BILATERAL* COMPARISON: January 29, 2020, October 10, 2018 TECHNIQUE: 2D and 3D Tomosynthesis of the right and left breasts was performed. FINDINGS: Breast composition demonstrates scattered fibroglandular densities. Overall appearance is stable. Typically benign calcifications. No suspicious microcalcifications, asymmetry, architectural distortion, or associated features are present. IMPRESSION: BIRADS 2: Benign mammogram Board Certified Radiologist. Accredited by the ACR and FDA. MAMMOGRAPHY IS VERY IMPORTANT TO YOUR HEALTH. THE CURRENT [place] [employer] AND [employer] GUIDELINES RECOMMENDS ANNUAL MAMMOGRAPHY BEGINNING AT AGE 40 THIS FACILITY USES A REMINDER SYSTEM TO ENSURE ALL PATIENTS RECEIVE REMINDER NOTIFICATIONS AT THE APPROPRIATE TIME BASED ON THE RECOMMENDATIONS OF THIS EXAM. Report reported and signed by Raghavendra De La Paz on 10/13/2021 0855 Normal [facility] NM STRESS/REST MULTIon 01-09 NM STRESS/REST MULTI Patient: Deb TALAMANTES DAMIÁN Chase Exam Date: 01/09/2021 : 1960 Gender:F Ordering : DR DOMINIK MCDANIEL M.D. Admission #: [id number] Family : Order #: [id number] CLICK HERE TO VIEW EXAM RADIOLOGY REPORT PROCEDURE: RADIONUCLIDE IMAGING STRESS/REST MULTI COMPARISON: None. INDICATIONS: Chest pain, dyspnea TECHNIQUE: Exam Description: Rest/Stress one day protocol gated SPECT Rest Imagin.8 mCi Tc-99m Cardiolite IV on 01/09/2021 Stress Imaging 30.0 mCi Tc-99m Cardiolite IV on 01/09/2021 Exercise Protocol: 0.4 mg Lexiscan given IV Heart Rate (bpm): Rest: 80 Max: 97 PMHR: 60 Blood Pressure: Rest: 124/72 Max: 124/72 Symptoms: Rest and peak stress ECG findings were normal and the exercise portion of the study was normal per attending physician Dr. Henry . For more details please see separate cardiac stress test report. FINDINGS: QUALITY OF STUDY: Excellent. PERFUSION DEFECT: LOCATION: Basal anterior. Mid-anterior. Apical anterior. SIZE: Medium (3-4 segments). SEVERITY: Moderate. TYPE: Persistent. WALL MOTION: Normal. LV SIZE: Normal. 88 mL. TID / TCD: None; 0.8 LVEF: Normal. Calculated EF 67%. SUMMARY: Myocardial perfusion imaging study has ABNORMAL findings. CONCLUSION: 1. No acute or reversible ischemia. 2. Mild-moderate fixed anterior wall perfusion defect versus breast attenuation artifact. I suspect attenuation artifact. 3. Normal wall motion and ejection fraction. 4. Normal exercise portion of the stress test per Dr. Henry. Dictated by: Cuba Cohen M.D. on 01/10/2021 at 13:57 Approved by: Cuba Cohen M.D. on 01/10/2021 at 14:03 Normal [facility] Hep B Surf Abon 02-02-2018 Hep B Surf Ab <3.50 Normal <10 [facility] Comment on above: Result Comment: REFE RENCE RANGE:<10.0 NON-REACTIVE/NOT IMMUNE>=10.0 REACTIVE/IMMUNE Performed By: #### M UI, EDILIA, VZI, CHARLOTTE, AHBS ####[address] [id number] Measles (Rubeola) Imon 02-02 Measles (Rubeola) Im 1.60 Normal >1.09 [facility] Comment on above: Result Comment: Inte rpretation:IMMUNEReference Range:<0.91 Not Immune0.91-1.09 Equivocal>1.09 Immune Performed By: #### M UI, EDILIA, VZI, CHARL[place], AHBS ####[address] [id number] Mumps,Immun,Abon 02-02-2018 Mumps,Immun,Ab 2.75 Normal >1.09 [facility] Comment on above: Result Comment: Inte rpretation:IMMUNEReference Range:<0.91 Not Immune0.91-1.09 Equivocal>1.09 Immune Performed By: #### M UI, EDILIA, VZI, CHARL[place], AHBS ####[address] [id number] Rubella Ab, IgGon 02-02-2018 Rubella Ab, IgG 12.8 IU/mL Normal [facility] Comment on above: Result Comment: REFE RENCE RANGE:<5.0 NON-REACTIVE (non-immune)5.0 TO 9.9 EQUIVOCAL>=10.0 REACTIVE (immune) Performed By: #### M UI, EDILIA, VZI, CHARLOTTE, AHBS ####[address] [id number] VZ Immunityon 02-02-2018 VZ Immunity 2.40 Normal >1.09 [facility] Comment on above: Result Comment: Inte rpretation:IMMUNEReference Range:<0.91 Not Immune0.91-1.09 Equivocal>1.09 Immune Performed By: #### M MARIA, EDILIA, BELGICA, CHARLOTTE, CHLOE ####[facility] [place], [place] [id number] Vital Signs Date Time Vital Sign Value Performing Clinician Facility 10-16-2024 08:05-0400 Body height 157.5 cm Roxie Majors BUSINESS INTELLIGENCE MANAGER Work Phone: [facility] 10-16-2024 08:05-0400 Body mass index (BMI) [Ratio] 42.25 kg/m2 Roxie Good Deals BUSINESS INTELLIGENCE MANAGER Work Phone: [facility] 10-16-2024 08:05-0400 Body weight 104.78 kg RoxieDurolines BUSINESS INTELLIGENCE MANAGER Work Phone: [facility] 10-16-2024 08:05-0400 Diastolic blood pressure 68 mm[Hg] Roxie Majors BUSINESS INTELLIGENCE MANAGER Work Phone: [facility] 10-16-2024 08:05-0400 Heart rate 98 /min Roxie Majors BUSINESS INTELLIGENCE MANAGER Work Phone: [facility] 10-16-2024 08:05-0400 SaO2% (BldA) [Mass fraction] 96 % Roxie Majors BUSINESS INTELLIGENCE MANAGER Work Phone: [facility] 10-16-2024 08:05-0400 Systolic blood pressure 122 mm[Hg] Roxie Good Deals BUSINESS INTELLIGENCE MANAGER Work Phone: [facility] 10-13-2024 10:04-0400 Body height 157.5 cm Sheldon Lal DO Work Phone: [facility] 10-13-2024 10:04-0400 Body mass index (BMI) [Ratio] 42.07 kg/m2 Sheldon Lal DO Work Phone: [facility] 10-13-2024 10:04-0400 Body weight 104.33 kg Sheldon Lal DO Work Phone: [facility] 10-06-2024 14:13-0400 Heart rate 76 /min Dominik Mcdaniel MD Work Phone: [facility] 10-06-2024 14:13-0400 Respiratory rate 18 /min Dominik Mcdaniel MD Work Phone: [facility] 10-06-2024 12:00-0400 Diastolic blood pressure 67 mm[Hg] Dominik Mcdaniel MD Work Phone: [facility] 10-06-2024 12:00-0400 SaO2% (BldA) [Mass fraction] 93 % Dominik Mcdaniel MD Work Phone: [facility] 10-06-2024 12:00-0400 Systolic blood pressure 147 mm[Hg] Dominik Mcdaniel MD Work Phone: [facility] 10-06-2024 08:17-0400 Body temperature 97.8 [degF] Dominik Mcdaniel MD Work Phone: [facility] 10-06-2024 05:01-0400 Body weight 107 kg Dominik Mcdaniel MD Work Phone: [facility] 10-05-2024 14:33-0400 Body height 157.48 cm Dominik Mcdaniel MD Work Phone: [facility] 10-04-2024 08:00-0400 Inhaled oxygen concentration 50 % Dominik Mcdaniel MD Work Phone: [facility] 10-04-2024 08:00-0400 Inhaled oxygen flow rate 3 L/min Dominik Mcdaniel MD Work Phone: [facility] 09-28-2024 12:09-0400 Inhaled oxygen flow rate 30 L/min Dominik Mcdaniel MD Work Phone: [facility] 09-28-2024 11:21-0400 Diastolic blood pressure 57 mm[Hg] Dominik Mcdaniel MD Work Phone: [facility] 09-28-2024 11:21-0400 Heart rate 90 /min Dominik Mcdaniel MD Work Phone: [facility] 09-28-2024 11:21-0400 Inhaled oxygen concentration 100 % Dominik Mcdaniel MD Work Phone: [facility] 09-28-2024 11:21-0400 Respiratory rate 28 /min Dominik Mcdaniel MD Work Phone: [facility] 09-28-2024 11:21-0400 SaO2% (BldA) [Mass fraction] 93 % Dominik Mcdaniel MD Work Phone: [facility] 09-28-2024 11:21-0400 Systolic blood pressure 116 mm[Hg] Dominik Mcdaniel MD Work Phone: [facility] 09-28-2024 08:34-0400 Body temperature 98.7 [degF] Dominik Mcdaniel MD Work Phone: [facility] 09-28-2024 08:32-0400 Body height 157.48 cm Dominik Mcdaniel MD Work Phone: [facility] 09-28-2024 08:32-0400 Body weight 105 kg Dominik Mcdaniel MD Work Phone: [facility] 09-22-2024 10:11-0400 Body height 157.5 cm Sheldon Lal DO Work Phone: [facility] 09-22-2024 10:11-0400 Body mass index (BMI) [Ratio] 42.07 kg/m2 Sheldon Lal DO Work Phone: [facility] 09-22-2024 10:11-0400 Body weight 104.33 kg Sheldon Lal DO Work Phone: [facility] 09-20-2024 17:22-0400 Diastolic blood pressure 66 mm[Hg] Dominik Mcdaniel MD Work Phone: [facility] 09-20-2024 17:22-0400 Heart rate 97 /min Dominik Mcdaniel MD Work Phone: [facility] 09-20-2024 17:22-0400 Respiratory rate 18 /min Dominik Mcdaniel MD Work Phone: [facility] 09-20-2024 17:22-0400 SaO2% (BldA) [Mass fraction] 93 % Dominik Mcdaniel MD Work Phone: [facility] 09-20-2024 17:22-0400 Systolic blood pressure 122 mm[Hg] Dominik Mcdaniel MD Work Phone: [facility] 09-20-2024 16:00-0400 Body temperature 97.5 [degF] Dominik Mcdaniel MD Work Phone: [facility] 09-20-2024 16:00-0400 Inhaled oxygen flow rate 3 L/min Dominik Mcdaniel MD Work Phone: [facility] 09-20-2024 11:27-0400 Body height 158.75 cm Dominik Mcdaniel MD Work Phone: [facility] 09-20-2024 11:27-0400 Body weight 105 kg Dominik Mcdaniel MD Work Phone: [facility] 09-12-2024 16:18-0400 Body height 157.5 cm Nadia Palmer DPM Work Phone: [facility] 09-12-2024 16:18-0400 Body mass index (BMI) [Ratio] 42.54 kg/m2 Nadia Palmer DPM Work Phone: [facility] 09-12-2024 16:18-0400 Body weight 105.51 kg Nadia Palmer DPM Work Phone: [facility] 09-11-2024 11:31-0400 Diastolic blood pressure 70 mm[Hg] Roxie Rodriguez BUSINESS INTELLIGENCE MANAGER Work Phone: [facility] 09-11-2024 11:31-0400 Systolic blood pressure 128 mm[Hg] Roxie Millers BUSINESS INTELLIGENCE MANAGER Work Phone: [facility] 09-11-2024 11:24-0400 Body height 157.5 cm Roxie Rodriguez BUSINESS INTELLIGENCE MANAGER Work Phone: [facility] 09-11-2024 11:24-0400 Body mass index (BMI) [Ratio] 42.54 kg/m2 Roxiecheryl Millers BUSINESS INTELLIGENCE MANAGER Work Phone: [facility] 09-11-2024 11:24-0400 Body temperature 98.2 [degF] Roxie Good Deals BUSINESS INTELLIGENCE MANAGER Work Phone: [facility] 09-11-2024 11:24-0400 Body weight 105.51 kg Roxie Good Deals BUSINESS INTELLIGENCE MANAGER Work Phone: [facility] 09-11-2024 11:24-0400 Heart rate 80 /min Roxie Good Deals BUSINESS INTELLIGENCE MANAGER Work Phone: [facility] 09-11-2024 11:24-0400 SaO2% (BldA) [Mass fraction] 96 % Roxie Good Deals BUSINESS INTELLIGENCE MANAGER Work Phone: [facility] 09-11-2024 09:24-0400 Body height 157.5 cm Sheldon Biedenbach DO Work Phone: [facility] 09-11-2024 09:24-0400 Body mass index (BMI) [Ratio] 42.98 kg/m2 Sheldon Biedenbach DO Work Phone: [facility] 09-11-2024 09:24-0400 Body weight 106.59 kg Sheldon Biedenbach DO Work Phone: [facility] 08-28-2024 09:08-0400 Body height 157.5 cm Sheldon Biedenbach DO Work Phone: [facility] 08-28-2024 09:08-0400 Body mass index (BMI) [Ratio] 42.98 kg/m2 Sheldon Biedenbach DO Work Phone: [facility] 08-28-2024 09:08-0400 Body weight 106.59 kg Sheldon Biedenbach DO Work Phone: [facility] 08-24-2024 13:11-0400 Body height 157.5 cm Nadia Palmer DPM Work Phone: [facility] 08-24-2024 13:11-0400 Body mass index (BMI) [Ratio] 43.02 kg/m2 Nadia Palmer DPM Work Phone: [facility] 08-24-2024 13:11-0400 Body weight 106.69 kg Nadia Palmer DPM Work Phone: [facility] 08-24-2024 09:24-0400 Body height 158.75 cm Dominik Mcdaniel MD Work Phone: [facility] 08-24-2024 09:24-0400 Body mass index (BMI) [Ratio] 42.7 kg/m2 Dominik Mcdaniel MD Work Phone: [facility] 08-24-2024 09:24-0400 Body weight 107.67 kg Dominik Mcdaniel MD Work Phone: [facility] 08-24-2024 09:24-0400 Diastolic blood pressure 84 mm[Hg] Dominik Mcdaniel MD Work Phone: [facility] 08-24-2024 09:24-0400 Heart rate 95 /min Dominik Mcdaniel MD Work Phone: [facility] 08-24-2024 09:24-0400 SaO2% (BldA) [Mass fraction] 96 % Dominik Mcdaniel MD Work Phone: [facility] 08-24-2024 09:24-0400 Systolic blood pressure 122 mm[Hg] Dominik Mcdaniel MD Work Phone: [facility] 08-15-2024 08:22-0400 Body height 157.5 cm Roxie Rodriguez BUSINESS INTELLIGENCE MANAGER Work Phone: [facility] 08-15-2024 08:22-0400 Body mass index (BMI) [Ratio] 43.02 kg/m2 Roxie Rodriguez BUSINESS INTELLIGENCE MANAGER Work Phone: [facility] 08-15-2024 08:22-0400 Body temperature 98.29 [degF] Roxie Rodriguez BUSINESS INTELLIGENCE MANAGER Work Phone: [facility] 08-15-2024 08:22-0400 Body weight 106.69 kg Roxie Majors BUSINESS INTELLIGENCE MANAGER Work Phone: [facility] 08-15-2024 08:22-0400 Diastolic blood pressure 60 mm[Hg] Roxie Majors BUSINESS INTELLIGENCE MANAGER Work Phone: [facility] 08-15-2024 08:22-0400 Heart rate 88 /min Roxie Majors BUSINESS INTELLIGENCE MANAGER Work Phone: [facility] 08-15-2024 08:22-0400 SaO2% (BldA) [Mass fraction] 97 % Roxie Majors BUSINESS INTELLIGENCE MANAGER Work Phone: [facility] 08-15-2024 08:22-0400 Systolic blood pressure 116 mm[Hg] Roxie Majors BUSINESS INTELLIGENCE MANAGER Work Phone: [facility] 08-01-2024 13:13-0400 Diastolic blood pressure 66 mm[Hg] Roxie Majors BUSINESS INTELLIGENCE MANAGER Work Phone: [facility] 08-01-2024 13:13-0400 Systolic blood pressure 126 mm[Hg] Roxie Majors BUSINESS INTELLIGENCE MANAGER Work Phone: [facility] 08-01-2024 13:06-0400 Body height 157.5 cm Roxie Majors BUSINESS INTELLIGENCE MANAGER Work Phone: [facility] 08-01-2024 13:06-0400 Body mass index (BMI) [Ratio] 44.81 kg/m2 Roxie Majors BUSINESS INTELLIGENCE MANAGER Work Phone: [facility] 08-01-2024 13:06-0400 Body temperature 98.49 [degF] Roxie Majors BUSINESS INTELLIGENCE MANAGER Work Phone: [facility] 08-01-2024 13:06-0400 Body weight 111.13 kg Roxie Majors BUSINESS INTELLIGENCE MANAGER Work Phone: [facility] 08-01-2024 13:06-0400 Heart rate 85 /min Roxie Majors BUSINESS INTELLIGENCE MANAGER Work Phone: [facility] 08-01-2024 13:06-0400 SaO2% (BldA) [Mass fraction] 95 % Roxie Majors BUSINESS INTELLIGENCE MANAGER Work Phone: [facility] 07-21-2024 10:09-0400 Body height 158.75 cm Dominik Mcdaniel MD Work Phone: [facility] 07-21-2024 10:09-0400 Body mass index (BMI) [Ratio] 44.8 kg/m2 Dominik Mcdaniel MD Work Phone: [facility] 07-21-2024 10:09-0400 Body weight 112.94 kg Dominik Mcdaniel MD Work Phone: [facility] 07-21-2024 10:09-0400 Diastolic blood pressure 76 mm[Hg] Dominik Mcdaniel MD Work Phone: [facility] 07-21-2024 10:09-0400 Heart rate 69 /min Dominik Mcdaniel MD Work Phone: [facility] 07-21-2024 10:09-0400 SaO2% (BldA) [Mass fraction] 98 % Dominik Mcdaniel MD Work Phone: [facility] 07-21-2024 10:09-0400 Systolic blood pressure 120 mm[Hg] Dominik Mcdaniel MD Work Phone: [facility] 07-17-2024 16:51-0400 Body height 157.5 cm Dominik Mcdaniel MD Work Phone: [facility] 07-17-2024 16:51-0400 Body mass index (BMI) [Ratio] 45.18 kg/m2 Dominik Mcdaniel MD Work Phone: [facility] 07-17-2024 16:51-0400 Body weight 112.04 kg Dominik Mcdaniel MD Work Phone: [facility] 07-17-2024 16:51-0400 Diastolic blood pressure 74 mm[Hg] Dominik Mcdaniel MD Work Phone: [facility] 07-17-2024 16:51-0400 Heart rate 91 /min Dominik Mcdaniel MD Work Phone: [facility] 07-17-2024 16:51-0400 Respiratory rate 18 /min Dominik Mcdaniel MD Work Phone: [facility] 07-17-2024 16:51-0400 SaO2% (BldA) [Mass fraction] 96 % Dominik Mcdaniel MD Work Phone: [facility] 07-17-2024 16:51-0400 Systolic blood pressure 126 mm[Hg] Dominik Mcdaniel MD Work Phone: [facility] 07-04-2024 09:10-0400 Body height 157.5 cm Dominik Mcdaniel MD Work Phone: [facility] 07-04-2024 09:10-0400 Body mass index (BMI) [Ratio] 44.99 kg/m2 Dominik Mcdaniel MD Work Phone: [facility] 07-04-2024 09:10-0400 Body weight 111.58 kg Dominik Mcdaniel MD Work Phone: [facility] 07-04-2024 09:10-0400 Diastolic blood pressure 66 mm[Hg] Dominik Mcdaniel MD Work Phone: [facility] 07-04-2024 09:10-0400 Heart rate 82 /min Dominik Mcdaniel MD Work Phone: [facility] 07-04-2024 09:10-0400 Respiratory rate 18 /min Dominik Mcdaniel MD Work Phone: [facility] 07-04-2024 09:10-0400 SaO2% (BldA) [Mass fraction] 95 % Dominik Mcdaniel MD Work Phone: [facility] 07-04-2024 09:10-0400 Systolic blood pressure 124 mm[Hg] Dominik Mcdaniel MD Work Phone: [facility] 06-29-2024 09:34-0400 Body height 158.75 cm [facility] 06-29-2024 09:34-0400 Body mass index (BMI) [Ratio] 44.2 kg/m2 [facility] 06-29-2024 09:34-0400 Body weight 111.58 kg [facility] 06-29-2024 09:34-0400 Diastolic blood pressure 83 mm[Hg] [facility] 06-29-2024 09:34-0400 Heart rate 93 /min [facility] 06-29-2024 09:34-0400 Respiratory rate 20 /min [facility] 06-29-2024 09:34-0400 SaO2% (BldA) [Mass fraction] 98 % [facility] 06-29-2024 09:34-0400 Systolic blood pressure 138 mm[Hg] [facility] 06-29-2024 08:58-0400 Body height 158.75 cm Dominik Mcdaniel MD Work Phone: [facility] 06-29-2024 08:58-0400 Body mass index (BMI) [Ratio] 43.5 kg/m2 Dominik Mcdaniel MD Work Phone: [facility] 06-29-2024 08:58-0400 Body weight 109.76 kg Dominik Mcdaniel MD Work Phone: [facility] 06-29-2024 08:58-0400 Diastolic blood pressure 68 mm[Hg] Dominik Mcdaniel MD Work Phone: [facility] 06-29-2024 08:58-0400 Heart rate 96 /min Dominik Mcdaniel MD Work Phone: [facility] 06-29-2024 08:58-0400 SaO2% (BldA) [Mass fraction] 95 % Dominik Mcdaniel MD Work Phone: [facility] 06-29-2024 08:58-0400 Systolic blood pressure 132 mm[Hg] Dominik Mcdaniel MD Work Phone: [facility] 06-23-2024 08:11-0400 Body height 157.5 cm Dominik Mcdaniel MD Work Phone: [facility] 06-23-2024 08:11-0400 Body mass index (BMI) [Ratio] 44.99 kg/m2 Dominik Mcdaniel MD Work Phone: [facility] 06-23-2024 08:11-0400 Body weight 111.58 kg Dominik Mcdaniel MD Work Phone: [facility] 06-23-2024 08:11-0400 Diastolic blood pressure 70 mm[Hg] Dominik Mcdaniel MD Work Phone: [facility] 06-23-2024 08:11-0400 Heart rate 97 /min Dominik Mcdaniel MD Work Phone: [facility] 06-23-2024 08:11-0400 Respiratory rate 18 /min Dominik Mcdaniel MD Work Phone: [facility] 06-23-2024 08:11-0400 SaO2% (BldA) [Mass fraction] 97 % Dominik Mcdaniel MD Work Phone: [facility] 06-23-2024 08:11-0400 Systolic blood pressure 132 mm[Hg] Dominik Mcdaniel MD Work Phone: [facility] 05-25-2024 10:00-0400 Diastolic blood pressure 70 mm[Hg] Dominik Mcdaniel MD Work Phone: [facility] 05-25-2024 10:00-0400 Heart rate 82 /min Dominik Mcdaniel MD Work Phone: [facility] 05-25-2024 10:00-0400 SaO2% (BldA) [Mass fraction] 96 % Dominik Mcdaniel MD Work Phone: [facility] 05-25-2024 10:00-0400 Systolic blood pressure 130 mm[Hg] Dominik Mcdaniel MD Work Phone: [facility] 05-17-2024 13:56-0400 Body height 158.75 cm Dominik Mcdaniel MD Work Phone: [facility] 05-17-2024 13:56-0400 Body mass index (BMI) [Ratio] 45.5 kg/m2 Dominik Mcdaniel MD Work Phone: [facility] 05-17-2024 13:56-0400 Body temperature 98 [degF] Dominik Mcdaniel MD Work Phone: [facility] 05-17-2024 13:56-0400 Body weight 114.75 kg Dominik Mcdaniel MD Work Phone: [facility] 05-17-2024 13:56-0400 Diastolic blood pressure 57 mm[Hg] Dominik Mcdaniel MD Work Phone: [facility] 05-17-2024 13:56-0400 Heart rate 88 /min Dominik Mcdaniel MD Work Phone: [facility] 05-17-2024 13:56-0400 Respiratory rate 16 /min Dominik Mcdaniel MD Work Phone: [facility] 05-17-2024 13:56-0400 SaO2% (BldA) [Mass fraction] 98 % Dominik Mcdaniel MD Work Phone: [facility] 05-17-2024 13:56-0400 Systolic blood pressure 116 mm[Hg] Dominik Mcdaniel MD Work Phone: [facility] 04-27-2024 09:19-0500 Diastolic blood pressure 72 mm[Hg] Dominik Mcdaniel MD Work Phone: [facility] 04-27-2024 09:19-0500 Heart rate 81 /min Dominik Mcdaniel MD Work Phone: [facility] 04-27-2024 09:19-0500 SaO2% (BldA) [Mass fraction] 97 % Dominik Mcdaniel MD Work Phone: [facility] 04-27-2024 09:19-0500 Systolic blood pressure 128 mm[Hg] Dominik Mcdaniel MD Work Phone: [facility] 04-13-2024 15:42-0500 Diastolic blood pressure 70 mm[Hg] Dominik Mcdaniel MD Work Phone: [facility] 04-13-2024 15:42-0500 Heart rate 87 /min Dominik Mcdaniel MD Work Phone: [facility] 04-13-2024 15:42-0500 SaO2% (BldA) [Mass fraction] 96 % Dominik Mcdaniel MD Work Phone: [facility] 04-13-2024 15:42-0500 Systolic blood pressure 110 mm[Hg] Dominik Mcdaniel MD Work Phone: [facility] 03-31-2024 13:30-0500 Body height 157.5 cm Dominik Mcdaniel MD Work Phone: [facility] 03-31-2024 13:30-0500 Body mass index (BMI) [Ratio] 46.68 kg/m2 Dominik Mcdaniel MD Work Phone: [facility] 03-31-2024 13:30-0500 Body weight 115.76 kg Dominik Mcdaniel MD Work Phone: [facility] 03-31-2024 13:30-0500 Diastolic blood pressure 74 mm[Hg] Dominik Mcdaniel MD Work Phone: [facility] 03-31-2024 13:30-0500 Heart rate 81 /min Dominik Mcdaniel MD Work Phone: [facility] 03-31-2024 13:30-0500 Respiratory rate 18 /min Dominik Mcdaniel MD Work Phone: [facility] 03-31-2024 13:30-0500 SaO2% (BldA) [Mass fraction] 96 % Dominik Mcdaniel MD Work Phone: [facility] 03-31-2024 13:30-0500 Systolic blood pressure 122 mm[Hg] Dominik Mcdaniel MD Work Phone: [facility] 03-31-2024 09:42-0500 Diastolic blood pressure 70 mm[Hg] Dominik Mcdaniel MD Work Phone: [facility] 03-31-2024 09:42-0500 Heart rate 83 /min Dominik Mcdaniel MD Work Phone: [facility] 03-31-2024 09:42-0500 SaO2% (BldA) [Mass fraction] 92 % Dominik Mcdaniel MD Work Phone: [facility] 03-31-2024 09:42-0500 Systolic blood pressure 122 mm[Hg] Dominik Mcdaniel MD Work Phone: [facility] 03-03-2024 09:53-0500 Body height 157.5 cm Sheldon Lal DO Work Phone: [facility] 03-03-2024 09:53-0500 Body mass index (BMI) [Ratio] 50.12 kg/m2 Sheldon Lal DO Work Phone: [facility] 03-03-2024 09:53-0500 Body weight 124.29 kg Sheldon Olivojoyrobjamal DO Work Phone: [facility] 03-03-2024 09:00-0500 Body weight 118.38 kg Dominik Mcdaniel MD Work Phone: [facility] 03-03-2024 09:00-0500 Diastolic blood pressure 80 mm[Hg] Dominik Mcdaniel MD Work Phone: [facility] 03-03-2024 09:00-0500 Heart rate 92 /min Dominik Mcdaniel MD Work Phone: [facility] 03-03-2024 09:00-0500 SaO2% (BldA) [Mass fraction] 98 % Dominik Mcdaniel MD Work Phone: [facility] 03-03-2024 09:00-0500 Systolic blood pressure 140 mm[Hg] Dominik Mcdaniel MD Work Phone: [facility] 02-10-2024 16:00-0500 Diastolic blood pressure 70 mm[Hg] Dominik Mcdaniel MD Work Phone: [facility] 02-10-2024 16:00-0500 Heart rate 77 /min Dominik Mcdaniel MD Work Phone: [facility] 02-10-2024 16:00-0500 SaO2% (BldA) [Mass fraction] 97 % Dominik Mcdaniel MD Work Phone: [facility] 02-10-2024 16:00-0500 Systolic blood pressure 120 mm[Hg] Dominik Mcdaniel MD Work Phone: [facility] 02-03-2024 16:32-0500 Diastolic blood pressure 70 mm[Hg] Dominik Mcdaniel MD Work Phone: [facility] 02-03-2024 16:32-0500 Heart rate 86 /min Dominik Mcdaniel MD Work Phone: [facility] 02-03-2024 16:32-0500 SaO2% (BldA) [Mass fraction] 95 % Dominik Mcdaniel MD Work Phone: [facility] 02-03-2024 16:32-0500 Systolic blood pressure 140 mm[Hg] Dominik Mcdaniel MD Work Phone: [facility] 01-20-2024 16:02-0500 Diastolic blood pressure 90 mm[Hg] Dominik Mcdaniel MD Work Phone: [facility] 01-20-2024 16:02-0500 Heart rate 89 /min Dominik Mcdaniel MD Work Phone: [facility] 01-20-2024 16:02-0500 SaO2% (BldA) [Mass fraction] 96 % Dominik Mcdaniel MD Work Phone: [facility] 01-20-2024 16:02-0500 Systolic blood pressure 158 mm[Hg] Dominik Mcdaniel MD Work Phone: [facility] 01-05-2024 11:30-0500 Diastolic blood pressure 79 mm[Hg] MD Dominik Mcdaniel Work Phone: [facility] 01-05-2024 11:30-0500 Heart rate 78 /min MD Dominik Mcdaniel Work Phone: [facility] 01-05-2024 11:30-0500 Respiratory rate 16 /min MD Dominik Mcdaniel Work Phone: [facility] 01-05-2024 11:30-0500 SaO2% (BldA) [Mass fraction] 94 % MD Dominik Mcdaniel Work Phone: [facility] 01-05-2024 11:30-0500 Systolic blood pressure 144 mm[Hg] MD Dominik Mcdaniel Work Phone: [facility] 01-05-2024 10:49-0500 Inhaled oxygen flow rate 3 L/min MD Dominik Mcdaniel Work Phone: [facility] 01-05-2024 09:00-0500 Body height 158.75 cm MD Dominik Mcdaniel Work Phone: [facility] 01-05-2024 09:00-0500 Body weight 117.93 kg MD Dominik Mcdaniel Work Phone: [facility] 12-31-2023 08:38-0400 Body height 157.5 cm Dominik Mcdaniel MD Work Phone: [facility] 12-31-2023 08:38-0400 Body mass index (BMI) [Ratio] 50.12 kg/m2 Dominik Mcdaniel MD Work Phone: [facility] 12-31-2023 08:38-0400 Body weight 124.29 kg Dominik Mcdaniel MD Work Phone: [facility] 12-31-2023 08:38-0400 Diastolic blood pressure 74 mm[Hg] Dominik Mcdaniel MD Work Phone: [facility] 12-31-2023 08:38-0400 Heart rate 85 /min Dominik Mcdaniel MD Work Phone: [facility] 12-31-2023 08:38-0400 Respiratory rate 22 /min Dominik Mcdaniel MD Work Phone: [facility] 12-31-2023 08:38-0400 SaO2% (BldA) [Mass fraction] 93 % Dominik Mcdaniel MD Work Phone: [facility] 12-31-2023 08:38-0400 Systolic blood pressure 142 mm[Hg] Dominik Mcdaniel MD Work Phone: [facility] 12-27-2023 17:16-0400 Body height 157.5 cm Stephanie Pelayo NP Work Phone: [facility] 12-27-2023 17:16-0400 Body mass index (BMI) [Ratio] 51.03 kg/m2 Stephanie Pelayo BUSINESS INTELLIGENCE MANAGER Work Phone: [facility] 12-27-2023 17:16-0400 Body temperature 97.3 [degF] Stephanie Pelayo BUSINESS INTELLIGENCE MANAGER Work Phone: [facility] 12-27-2023 17:16-0400 Body weight 126.55 kg Stephanie Pelayo BUSINESS INTELLIGENCE MANAGER Work Phone: [facility] 12-27-2023 17:16-0400 Diastolic blood pressure 78 mm[Hg] Stephanie Pelayo BUSINESS INTELLIGENCE MANAGER Work Phone: [facility] 12-27-2023 17:16-0400 Heart rate 90 /min Stephanie Pelayo BUSINESS INTELLIGENCE MANAGER Work Phone: [facility] 12-27-2023 17:16-0400 Respiratory rate 18 /min Stephanie Pelayo BUSINESS INTELLIGENCE MANAGER Work Phone: [facility] 12-27-2023 17:16-0400 SaO2% (BldA) [Mass fraction] 92 % Stephanie Pelayo BUSINESS INTELLIGENCE MANAGER Work Phone: [facility] 12-27-2023 17:16-0400 Systolic blood pressure 126 mm[Hg] Stephanie Pelayo BUSINESS INTELLIGENCE MANAGER Work Phone: [facility] 12-24-2023 10:46-0400 Body weight 123.83 kg MD Dominik Mcdaniel Work Phone: [facility] 12-24-2023 10:46-0400 Diastolic blood pressure 70 mm[Hg] MD Dominik Mcdaniel Work Phone: [facility] 12-24-2023 10:46-0400 Heart rate 81 /min MD Dominik Mcdaniel Work Phone: [facility] 12-24-2023 10:46-0400 SaO2% (BldA) [Mass fraction] 95 % MD Dominik Mcdaniel Work Phone: [facility] 12-24-2023 10:46-0400 Systolic blood pressure 138 mm[Hg] MD Dominik Mcdaniel Work Phone: [facility] 12-08-2023 10:18-0400 Diastolic blood pressure 70 mm[Hg] MD Dominik Mcdaniel Work Phone: [facility] 12-08-2023 10:18-0400 Heart rate 81 /min MD Dominik Mcdaniel Work Phone: [facility] 12-08-2023 10:18-0400 Respiratory rate 16 /min MD Dominik Mcdaniel Work Phone: [facility] 12-08-2023 10:18-0400 SaO2% (BldA) [Mass fraction] 93 % MD Dominik Mcdaniel Work Phone: [facility] 12-08-2023 10:18-0400 Systolic blood pressure 151 mm[Hg] MD Dominik Mcdaniel Work Phone: [facility] 12-08-2023 09:37-0400 Inhaled oxygen flow rate 4 L/min MD Dominik Mcdaniel Work Phone: [facility] 12-08-2023 09:25-0400 Body height 157.48 cm MD Dominik Mcdaniel Work Phone: [facility] 12-08-2023 09:25-0400 Body weight 124.73 kg MD Dominik Mcdaniel Work Phone: [facility] 12-02-2023 15:44-0400 Body height 157.5 cm Stephanie Pelayo BUSINESS INTELLIGENCE MANAGER Work Phone: [facility] 12-02-2023 15:44-0400 Body mass index (BMI) [Ratio] 51.18 kg/m2 Stephanie Pelayo BUSINESS INTELLIGENCE MANAGER Work Phone: [facility] 12-02-2023 15:44-0400 Body temperature 97.11 [degF] Stephanie Pelayo BUSINESS INTELLIGENCE MANAGER Work Phone: [facility] 12-02-2023 15:44-0400 Body weight 126.92 kg Stephanie Pelayo BUSINESS INTELLIGENCE MANAGER Work Phone: [facility] 12-02-2023 15:44-0400 Diastolic blood pressure 80 mm[Hg] Stephanie Pelayo BUSINESS INTELLIGENCE MANAGER Work Phone: [facility] 12-02-2023 15:44-0400 Heart rate 75 /min Stephanie Pelayo BUSINESS INTELLIGENCE MANAGER Work Phone: [facility] 12-02-2023 15:44-0400 SaO2% (BldA) [Mass fraction] 93 % Stephanie Pelayo BUSINESS INTELLIGENCE MANAGER Work Phone: [facility] 12-02-2023 15:44-0400 Systolic blood pressure 126 mm[Hg] Stephanie Pelayo BUSINESS INTELLIGENCE MANAGER Work Phone: [facility] 11-26-2023 09:50-0400 Body weight 122.46 kg MD Dominik Mcdaniel Work Phone: [facility] 11-26-2023 09:50-0400 Diastolic blood pressure 80 mm[Hg] MD Dominik Mcdaniel Work Phone: [facility] 11-26-2023 09:50-0400 Heart rate 73 /min MD Dominik Mcdaniel Work Phone: [facility] 11-26-2023 09:50-0400 SaO2% (BldA) [Mass fraction] 95 % MD Dominik Mcdaniel Work Phone: [facility] 11-26-2023 09:50-0400 Systolic blood pressure 130 mm[Hg] MD Dominik Mcdaniel Work Phone: [facility] 11-17-2023 10:29-0400 Diastolic blood pressure 69 mm[Hg] MD Dominik Mcdaniel Work Phone: [facility] 11-17-2023 10:29-0400 Heart rate 88 /min MD Dominik Mcdaniel Work Phone: [facility] 11-17-2023 10:29-0400 Respiratory rate 16 /min MD Dominik Mcdaniel Work Phone: [facility] 11-17-2023 10:29-0400 SaO2% (BldA) [Mass fraction] 94 % MD Dominik Mcdaniel Work Phone: [facility] 11-17-2023 10:29-0400 Systolic blood pressure 121 mm[Hg] MD Dominik Mcdaniel Work Phone: [facility] 11-17-2023 09:48-0400 Inhaled oxygen flow rate 3 L/min MD Dominik Mcdaniel Work Phone: [facility] 11-17-2023 08:15-0400 Body height 158.75 cm MD Dominik Mcdaniel Work Phone: [facility] 11-17-2023 08:15-0400 Body weight 122.46 kg MD Dominik Mcdaniel Work Phone: [facility] 11-05-2023 09:49-0400 Body height 157.5 cm Elia Kumari DO Work Phone: [facility] 11-05-2023 09:49-0400 Body mass index (BMI) [Ratio] 49.93 kg/m2 Elia Kumari DO Work Phone: [facility] 11-05-2023 09:49-0400 Body weight 123.83 kg Elia Kumari DO Work Phone: [facility] 11-02-2023 09:03-0400 Body weight 122.92 kg MD Dominik Mcdaniel Work Phone: [facility] 11-02-2023 09:03-0400 Diastolic blood pressure 80 mm[Hg] MD Dominik Mcdaniel Work Phone: [facility] 11-02-2023 09:03-0400 Heart rate 73 /min MD Dominik Mcdaniel Work Phone: [facility] 11-02-2023 09:03-0400 SaO2% (BldA) [Mass fraction] 97 % MD Dominik Mcdaniel Work Phone: [facility] 11-02-2023 09:03-0400 Systolic blood pressure 120 mm[Hg] MD Dominik Mcdaniel Work Phone: [facility] 10-20-2023 10:11-0400 Diastolic blood pressure 81 mm[Hg] MD Dominik Mcdaniel Work Phone: [facility] 10-20-2023 10:11-0400 Heart rate 76 /min MD Dominik Mcdaniel Work Phone: [facility] 10-20-2023 10:11-0400 Respiratory rate 18 /min MD Dominik Mcdaniel Work Phone: [facility] 10-20-2023 10:11-0400 SaO2% (BldA) [Mass fraction] 94 % MD Dominik Mcdaniel Work Phone: [facility] 10-20-2023 10:11-0400 Systolic blood pressure 154 mm[Hg] MD Dominik Mcdaniel Work Phone: [facility] 10-20-2023 09:29-0400 Inhaled oxygen flow rate 3 L/min MD Dominik Mcdaniel Work Phone: [facility] 10-20-2023 08:18-0400 Body height 157.48 cm MD Dominik Mcdaniel Work Phone: [facility] 10-20-2023 08:18-0400 Body weight 122.46 kg MD Dominik Mcdaniel Work Phone: [facility] 10-19-2023 14:34-0400 Body height 157.5 cm Stephanie Pelayo BUSINESS INTELLIGENCE MANAGER Work Phone: [facility] 10-19-2023 14:34-0400 Body mass index (BMI) [Ratio] 50.12 kg/m2 Stephanie Pelayo BUSINESS INTELLIGENCE MANAGER Work Phone: [facility] 10-19-2023 14:34-0400 Body weight 124.29 kg Stephanie Pelayo BUSINESS INTELLIGENCE MANAGER Work Phone: [facility] 10-19-2023 14:34-0400 Diastolic blood pressure 70 mm[Hg] Stephanie Pelayo BUSINESS INTELLIGENCE MANAGER Work Phone: [facility] 10-19-2023 14:34-0400 Heart rate 80 /min Stephanie Pelayo BUSINESS INTELLIGENCE MANAGER Work Phone: [facility] 10-19-2023 14:34-0400 Respiratory rate 18 /min Stephanie Pelayo BUSINESS INTELLIGENCE MANAGER Work Phone: [facility] 10-19-2023 14:34-0400 SaO2% (BldA) [Mass fraction] 98 % Stephanie Pelayo BUSINESS INTELLIGENCE MANAGER Work Phone: [facility] 10-19-2023 14:34-0400 Systolic blood pressure 126 mm[Hg] Stephanie Pelayo BUSINESS INTELLIGENCE MANAGER Work Phone: [facility] 10-12-2023 12:02-0400 Body height 158.75 cm MD Dominik Mcdaniel Work Phone: [facility] 10-12-2023 12:02-0400 Body temperature 97.7 [degF] MD Dominik Mcdaniel Work Phone: [facility] 10-12-2023 12:02-0400 Body weight 120.2 kg MD Dominik Mcdaniel Work Phone: [facility] 10-12-2023 12:02-0400 Diastolic blood pressure 78 mm[Hg] MD Dominik Mcdaniel Work Phone: [facility] 10-12-2023 12:02-0400 Heart rate 69 /min MD Dominik Mcdaniel Work Phone: [facility] 10-12-2023 12:02-0400 Respiratory rate 20 /min MD Dominik Mcdaniel Work Phone: [facility] 10-12-2023 12:02-0400 SaO2% (BldA) [Mass fraction] 97 % MD Dominik Mcdaniel Work Phone: [facility] 10-12-2023 12:02-0400 Systolic blood pressure 152 mm[Hg] MD Dominik Mcdaniel Work Phone: [facility] 10-04-2023 13:44-0400 Body weight 122.46 kg MD Dominik Mcdaniel Work Phone: [facility] 10-04-2023 13:44-0400 Diastolic blood pressure 70 mm[Hg] MD Dominik Mcdaniel Work Phone: [facility] 10-04-2023 13:44-0400 Heart rate 84 /min MD Dominik Mcdaniel Work Phone: [facility] 10-04-2023 13:44-0400 SaO2% (BldA) [Mass fraction] 94 % MD Dominik Mcdaniel Work Phone: [facility] 10-04-2023 13:44-0400 Systolic blood pressure 160 mm[Hg] MD Dominik Mcdaniel Work Phone: [facility] 09-10-2023 09:31-0400 Body weight 122.01 kg MD Dominik Mcdaniel Work Phone: [facility] 09-10-2023 09:31-0400 Diastolic blood pressure 90 mm[Hg] MD Dominik Mcdaniel Work Phone: [facility] 09-10-2023 09:31-0400 Heart rate 89 /min MD Dominik Mcdaniel Work Phone: [facility] 09-10-2023 09:31-0400 SaO2% (BldA) [Mass fraction] 94 % MD Dominik Mcdaniel Work Phone: [facility] 09-10-2023 09:31-0400 Systolic blood pressure 150 mm[Hg] MD Dominik Mcdaniel Work Phone: [facility] 08-06-2023 09:12-0400 Body weight 117.48 kg MD Dominik Mcdaniel Work Phone: [facility] 08-06-2023 09:12-0400 Diastolic blood pressure 80 mm[Hg] MD Dominik Mcdaniel Work Phone: [facility] 08-06-2023 09:12-0400 Heart rate 86 /min MD Dominik Mcdaniel Work Phone: [facility] 08-06-2023 09:12-0400 SaO2% (BldA) [Mass fraction] 95 % MD Dominik Mcdaniel Work Phone: [facility] 08-06-2023 09:12-0400 Systolic blood pressure 160 mm[Hg] MD Dominik Mcdaniel Work Phone: [facility] 07-09-2023 09:16-0400 Body weight 119.74 kg MD Dominik Mcdaniel Work Phone: [facility] 07-09-2023 09:16-0400 Diastolic blood pressure 90 mm[Hg] MD Dominik Mcdaniel Work Phone: [facility] 07-09-2023 09:16-0400 Heart rate 78 /min MD Dominik Mcdaniel Work Phone: [facility] 07-09-2023 09:16-0400 SaO2% (BldA) [Mass fraction] 97 % MD Dominik Mcdaniel Work Phone: [facility] 07-09-2023 09:16-0400 Systolic blood pressure 130 mm[Hg] MD Dominik Mcdaniel Work Phone: [facility] 06-04-2023 09:03-0400 Body weight 117.93 kg MD Dominik Mcdaniel Work Phone: [facility] 06-04-2023 09:03-0400 Heart rate 67 /min MD Dominik Mcdaniel Work Phone: [facility] 06-04-2023 09:03-0400 SaO2% (BldA) [Mass fraction] 96 % MD Dominik Mcdaniel Work Phone: [facility] Encounters Encounter Date Encounter Type Care Provider Facility Start: 10-20-2024 End: 10-20-2024 Orders Only Roxie Rodriguez BUSINESS INTELLIGENCE MANAGER Work Phone: [facility] Comment on above: Candidiasis (Primary Dx) Start: 10-16-2024 End: 10-16-2024 Bamboo flowsheet Roxie Rodriguez BUSINESS INTELLIGENCE MANAGER Work Phone: [facility] Start: 10-16-2024 End: 10-16-2024 Bamboo flowsheet Roxie Rodriguez BUSINESS INTELLIGENCE MANAGER Work Phone: [facility] Start: 10-16-2024 End: 10-16-2024 Transitional care manage srvc 14 day discharge Roxie Rodriguez BUSINESS INTELLIGENCE MANAGER Work Phone: [facility] Comment on above: Hospital discharge f ollow-up (Primary Dx); Migraine aura occurring with and without headache ; Fibromyalgia; Other chronic pain; Chronic bilateral low back pain with bilateral sciatica; Type 2 diabetes mellitus with other specified complication, without long-term current use of insulin (HCC); Essential hypertension Start: 10-16-2024 End: 10-16-2024 ambulatory ROXIECHERYL MILLERHien Not Available Start: 10-13-2024 End: 10-13-2024 Bamboo flowsheet Sheldon Lal DO Work Phone: [facility] Start: 10-13-2024 End: 10-13-2024 Bamboo flowsheet Sheldon Lal DO Work Phone: [facility] Start: 10-13-2024 End: 10-13-2024 Office outpatient visit 25 minutes Sheldon Lal DO Work Phone: [facility] Comment on above: Parotid mass (Primar y Dx); Otorrhea of left ear; Acute suppurative otitis media of left ear without spontaneous rupture of tympanic membrane, recurrence not specified Start: 10-13-2024 End: 10-13-2024 ambulatory SHELDON LAL Not Available Start: 10-05-2024 Non-patient / Non-visit Cedric Quiñonez Jr DO -[facility] Palliative Work Phone: Start: 09-28-2024 End: 10-06-2024 Evaluation and management of inpatient Pedro Luis Baca MD -[facility] Work Phone: Start: 09-28-2024 Non-patient / Non-visit Grupo Rivera MD -[facility] Re[facility] Spine Work Phone: Start: 09-22-2024 End: 09-22-2024 Bamboo flowsheet Sheldon Lal DO Work Phone: [facility] Start: 09-22-2024 End: 09-22-2024 Bamboo flowsheet Sheldon Hien Marva DO Work Phone: [facility] Start: 09-22-2024 End: 09-22-2024 Postop follow up visit related to original px Sheldon Hien Marva DO Work Phone: [facility] Comment on above: Neck mass (Primary D x); Parotid mass; Tobacco abuse Start: 09-22-2024 End: 09-22-2024 ambulatory SHELDON LAL Not Available Start: 09-20-2024 End: 09-20-2024 Admission to same day surgery center Sheldon Lal DO -[facility] [place] Start: 09-20-2024 End: 09-20-2024 ambulatory Dominik Mcdaniel MD Work Phone: [facility] Work Phone: Start: 09-15-2024 End: 09-19-2024 Refill Nadia Palmer DPM Work Phone: [facility] Comment on above: Pigmented skin lesio n of uncertain behavior of lower extremity; Cellulitis of right toe Start: 09-12-2024 End: 09-12-2024 Office outpatient visit 15 minutes Nadia Palmer DPM Work Phone: [facility] Comment on above: Pain of right great toe (Primary Dx); Hemangioma of skin Start: 09-12-2024 End: 09-12-2024 ambulatory NADIA PALMER Not Available Start: 09-12-2024 End: 09-12-2024 External Result Encounter Sheldon Lal DO Work Phone: [facility] Unsolicited Start: 09-12-2024 End: 09-12-2024 External Result Encounter Sheldon Lal DO Work Phone: [facility] Unsolicited Start: 09-12-2024 End: 09-12-2024 Patient encounter procedure Sheldon Lal DO -Pre-Surgical Testing Work Phone: Start: 09-12-2024 End: 09-12-2024 ambulatory Dominik Mcdaniel MD Work Phone: [facility] Work Phone: Start: 09-12-2024 Encounter for preprocedural laboratory examination Sheldon Lal [facility] Start: 09-11-2024 End: 09-11-2024 Bamboo flowsheet Sheldon Lal DO Work Phone: [facility] Start: 09-11-2024 End: 09-11-2024 Bamboo flowsheet Sheldon Lal DO Work Phone: [facility] Start: 09-11-2024 End: 09-11-2024 Office outpatient visit 15 minutes Roxie Rodriguez BUSINESS INTELLIGENCE MANAGER Work Phone: [facility] Comment on above: Epidermal cyst (Prim karl Dx) Start: 09-11-2024 End: 09-11-2024 ambulatory ROXIE RODRIGUEZ Not Available Start: 09-11-2024 End: 09-11-2024 Office outpatient visit 25 minutes Sheldon Lal DO Work Phone: [facility] Comment on above: Neck mass (Primary D x); Parotid mass; Tobacco abuse Start: 09-11-2024 End: 09-11-2024 ambulatory SHELDON LAL Not Available Start: 08-29-2024 End: 09-05-2024 Telephone encounter Nadia THRASHERM Work Phone: [facility] Comment on above: Advice Only (toe) Start: 08-28-2024 End: 08-28-2024 Bamboo flowsheet Sheldon Lal DO Work Phone: [facility] Start: 08-28-2024 End: 08-28-2024 Bamboo flowsheet Sheldon Lal DO Work Phone: [facility] Start: 08-28-2024 End: 08-28-2024 Evaluation finding Sheldon Lal DO Work Phone: [facility] Start: 08-28-2024 End: 08-28-2024 Office outpatient visit 25 minutes Sheldon Redd Marva DO Work Phone: [facility] Comment on above: Neck mass (Primary D x); Cervical adenopathy; Blood tests prior to treatment or procedure Start: 08-28-2024 End: 08-29-2024 Refill Dominik Mcdaniel MD Work Phone: [facility] Comment on above: Primary insomnia Start: 08-24-2024 End: 08-24-2024 Bamboo flowsheet Nadia Palmer DPM Work Phone: [facility] Start: 08-24-2024 End: 08-24-2024 Bamboo flowsheet Nadia Palmer DPM Work Phone: [facility] Start: 08-24-2024 End: 08-24-2024 Office outpatient new 30 minutes Nadia Palmer DPM Work Phone: [facility] Comment on above: Plantar warts (Prima ry Dx); Pigmented skin lesion of uncertain behavior of lower extremity; Pain of right great toe; Open wound of right foot excluding one or more toes, initial encounter Start: 08-24-2024 End: 08-24-2024 ambulatory NADIA PALMER Not Available Start: 08-24-2024 End: 08-24-2024 ambulatory Dominik Mcdaniel MD Work Phone: [facility] Work Phone: Start: 08-24-2024 End: 08-24-2024 Patient encounter procedure Grisel Garner BUSINESS INTELLIGENCE MANAGER -[facility] Pain Mg[facility] Work Phone: Start: 08-15-2024 End: 08-15-2024 Bamboo flowsheet Roxie Rodriguez BUSINESS INTELLIGENCE MANAGER Work Phone: [facility] Start: 08-15-2024 End: 08-15-2024 Bamboo flowsheet Roxie Rodriguez BUSINESS INTELLIGENCE MANAGER Work Phone: [facility] Start: 08-15-2024 End: 08-15-2024 Office outpatient visit 25 minutes Roxie Rodriguez BUSINESS INTELLIGENCE MANAGER Work Phone: [facility] Comment on above: Open wound of right foot excluding one or more toes, initial encounter (Primary Dx); Dysuria; Chronic maxillary sinusitis; Allergic rhinitis, unspecified seasonality, unspecified trigger Start: 08-15-2024 End: 08-15-2024 ambulatory ROXIE RODRIGUEZ Not Available Start: 08-01-2024 End: 08-01-2024 ambulatory Dominik Mcdaniel MD Work Phone: [facility] Work Phone: Start: 08-01-2024 End: 08-01-2024 Patient encounter procedure Dominik Mcdaniel MD Work Phone: [facility]oped[facility] Work Phone: Start: 08-01-2024 End: 08-01-2024 Bamboo flowsheet Roxie Rodriguez BUSINESS INTELLIGENCE MANAGER Work Phone: [facility] Start: 08-01-2024 End: 08-02-2024 External Result Encounter Roxie Rodriguez BUSINESS INTELLIGENCE MANAGER Work Phone: [facility] External Department Unsolicited Start: 08-01-2024 End: 08-02-2024 External Result Encounter Roxie Rodriguez BUSINESS INTELLIGENCE MANAGER Work Phone: [facility] Department Unsolicited Start: 08-01-2024 End: 08-01-2024 Office outpatient visit 15 minutes Roxie Rodriguez BUSINESS INTELLIGENCE MANAGER Work Phone: [facility] Comment on above: Vaginal itching (Cristiane dominik Dx); Dysuria Start: 08-01-2024 End: 08-01-2024 ambulatory ROXIE RODRIGUEZ Not Available Start: 07-31-2024 End: 07-31-2024 ambulatory Alexandria Disla RN Work Phone: [facility] Comment on above: Type 2 diabetes emir itus with other specified complication, without long-term current use of insulin Type 2 diabetes emir itus with other specified complication, without long-term current use of insulin (Primary Dx) Start: 07-21-2024 End: 07-21-2024 ambulatory Dominik Mcdaniel MD Work Phone: [facility] Work Phone: Start: 07-21-2024 End: 07-21-2024 Patient encounter procedure Dominik Mcdaniel MD Work Phone: [facility] Work Phone: Start: 07-20-2024 End: 07-20-2024 ambulatory DOMINIK MCDANIEL Not Available Start: 07-17-2024 End: 07-17-2024 Office outpatient visit 25 minutes Dominik Mcdaniel MD Work Phone: [facility] Comment on above: Arthralgia, unspecif ied joint (Primary Dx); Bipolar disorder, current episode depressed, moderate (CMS/HCC); Acquired hypothyroidism (CMS/HCC); LAD (lymphadenopathy) of left cervical region; Tobacco abuse Start: 07-17-2024 End: 07-17-2024 ambulatory DOMINIK MCDANIEL Not Available Start: 07-17-2024 End: 07-17-2024 Bamboo flowsheet Dominik Mcdaniel MD Work Phone: [facility] Start: 07-17-2024 End: 07-17-2024 Bamboo flowsheet Dominik Mcdaniel MD Work Phone: [facility] Start: 07-12-2024 End: 07-12-2024 Telephone encounter Dominik Mcdaniel MD Work Phone: [facility] Start: 07-10-2024 End: 07-10-2024 Telephone encounter Dominik Mcdaniel MD Work Phone: [facility] Start: 07-04-2024 End: 07-04-2024 Bamboo flowsheet Dominik Mcdaniel MD Work Phone: [facility] Start: 07-04-2024 End: 07-04-2024 Bamboo flowsheet Dominik Mcdaniel MD Work Phone: [facility] Start: 07-04-2024 End: 07-04-2024 Telephone encounter Lisa Alvarez F[employer]RICATOR [employer] [facility] Start: 07-04-2024 End: 07-04-2024 Office outpatient visit 15 minutes Dominik Mcdaniel MD Work Phone: [facility] Comment on above: Nausea and vomiting, unspecified vomiting type (Primary Dx); Primary insomnia; Bilateral carpal tunnel syndrome; Fibromyalgia; Erythrocytosis Start: 07-04-2024 End: 07-04-2024 ambulatory DOMINIK MCDANIEL Not Available Start: 07-03-2024 End: 07-03-2024 Refill Dominik Mcdaniel MD Work Phone: [facility] Comment on above: Type 2 diabetes emir itus with other specified complication, without long-term current use of insulin Start: 06-30-2024 End: 06-30-2024 ambulatory DOMINIK MCDANIEL Not Available Start: 06-29-2024 End: 06-29-2024 Patient encounter procedure Dominik Mcdaniel MD Work Phone: [facility] Work Phone: Start: 06-29-2024 End: 06-29-2024 ambulatory Dominik Mcdaniel MD Work Phone: [facility] Work Phone: Start: 06-29-2024 End: 06-29-2024 ambulatory Dominik Mcdaniel MD Work Phone: [facility] Work Phone: Start: 06-29-2024 End: 06-29-2024 Patient encounter procedure Dominik Mcdaniel MD Work Phone: [facility] Work Phone: Start: 06-27-2024 Registered Recurring Dominik ruiz MD Work Phone: [facility] Work Phone: Start: 06-23-2024 End: 06-23-2024 Bamboo flowsheet Dominik Mcdaniel MD Work Phone: [facility] Start: 06-23-2024 End: 06-23-2024 Bamboo flowsheet Dominik Mcdaniel MD Work Phone: [facility] Start: 06-23-2024 End: 06-23-2024 Office outpatient visit 25 minutes Dominik Mcdaniel MD Work Phone: [facility] Comment on above: Essential hypertensi on (CMS/HCC) (Primary Dx); Mixed hyperlipidemia (CMS/HCC); Acquired hypothyroidism (CMS/HCC); Temporary low platelet count (CMS/HCC); Conductive hearing loss, unilateral, right ear, with unrestricted hearing on the contralateral side; Morbid (severe) obesity due to excess calories (CMS/HCC); Body mass index (BMI) 45.0-49.9, adult (CMS/HCC); Bipolar disorder, current episode depressed, moderate (CMS/HCC); Alcohol dependence, in remission; Type 2 diabetes mellitus with other specified complication, without long-term current use of insulin; Tobacco abuse; Cervical adenopathy; Fibromyalgia Start: 06-23-2024 End: 06-23-2024 ambulatory DOMINIK MCDANIEL Not Available Start: 05-27-2024 End: 05-27-2024 Refill Dominik Mcdaniel MD Work Phone: [facility] Comment on above: Acquired hypothyroid ism (CMS/HCC) Start: 05-25-2024 End: 05-25-2024 ambulatory Dominik Mcdaniel MD Work Phone: [facility] Work Phone: Start: 05-25-2024 End: 05-25-2024 Patient encounter procedure Dominik Mcdaniel MD Work Phone: [facility] Work Phone: Start: 05-19-2024 Registered Recurring Dominik ruiz MD [facility] Work [facility]: Start: 05-17-2024 End: 05-17-2024 Patient encounter procedure Dominik Mcdaniel MD Work Phone: [facility] Work Phone: Start: 05-10-2024 End: 05-10-2024 Patient encounter procedure Dominik Mcdaniel MD Work Phone: [facility] Work Phone: Start: 05-10-2024 End: 05-10-2024 ambulatory Dominik Mcdaniel MD Work Phone: [facility] Work Phone: Start: 05-10-2024 Non-patient / Non-visit Dominik cameron MD Work Phone: [facility] Work Phone: Start: 05-09-2024 End: 05-09-2024 ambulatory Tuyetrob Cosby [employer] MARKER Work Phone: [facility] Comment on above: Chronic bilateral lo w back pain with bilateral sciatica (Primary Dx); Fibromyalgia Start: 05-09-2024 Non-patient / Non-visit Dominik cameron MD Work Phone: [facility] Work Phone: Start: 05-05-2024 End: 05-05-2024 ambulatory RUTHY PANTOJA Not Available Start: 05-03-2024 Non-patient / Non-visit Dominik cameron MD Work Phone: [facility] Work Phone: Start: 04-28-2024 End: 04-28-2024 Bamboo flowsheet Ruthy J Jey PT Work Phone: [facility] Start: 04-28-2024 End: 04-28-2024 Bamboo flowsheet Ruhty J Jey PT Work Phone: [facility] Start: 04-28-2024 End: 04-28-2024 ambulatory Ruthy J Jey PT Work Phone: [facility] Comment on above: Chronic bilateral lo w back pain with bilateral sciatica (Primary Dx); Fibromyalgia Start: 04-27-2024 End: 04-27-2024 ambulatory Dominik Mcdaniel MD Work Phone: [facility] Work Phone: Start: 04-27-2024 End: 04-27-2024 Patient encounter procedure Dominik Mcdaniel MD Work Phone: [facility] Work Phone: Start: 04-24-2024 End: 04-24-2024 Orders Only Roxie Majorhien BUSINESS INTELLIGENCE MANAGER Work Phone: [facility] Comment on above: Erythrocytosis (Prim karl Dx) Start: 04-18-2024 End: 04-18-2024 Telephone encounter Dominik Mcdaniel MD Work Phone: [facility] Start: 04-13-2024 End: 04-13-2024 ambulatory Dominik Mcdaniel MD Work Phone: [facility] Work Phone: Start: 04-13-2024 End: 04-13-2024 Patient encounter procedure Dominik Mcdaniel MD Work Phone: [facility] Work Phone: Start: 03-31-2024 End: 03-31-2024 Bamboo flowsheet Dominik Mdcaniel MD Work Phone: [facility] Start: 03-31-2024 End: 03-31-2024 Bamboo flowsheet Dominik Mcdaniel MD Work Phone: [facility] Start: 03-31-2024 End: 03-31-2024 ambulatory DOMINIK MCDANIEL Not Available Start: 03-31-2024 End: 03-31-2024 Office outpatient visit 25 minutes Dominik Mcdaniel MD Work Phone: [facility] Comment on above: Hypothyroidism, unsp ecified type (CMS/HCC) (Primary Dx); Type 2 diabetes mellitus with other specified complication, without long-term current use of insulin (CMS/HCC); Vitamin D deficiency Start: 03-31-2024 End: 03-31-2024 Patient encounter procedure Dominik Mcdaniel MD Work Phone: [facility] Work Phone: Start: 03-20-2024 End: 03-20-2024 Patient encounter procedure Dominik Mcdaniel MD Work Phone: [facility] Work Phone: Start: 03-20-2024 End: 03-20-2024 ambulatory Dominik Mcdaniel MD Work Phone: [facility] Work Phone: Start: 03-03-2024 End: 03-03-2024 Bamboo flowsheet Sheldon Lal DO Work Phone: [facility] Start: 03-03-2024 End: 03-03-2024 Bamboo flowsheet Sheldon Lal DO Work Phone: [facility] Start: 03-03-2024 End: 03-03-2024 Office outpatient visit 15 minutes Sheldon Lal DO Work Phone: [facility] Comment on above: Chronic rhinitis (Pr imary Dx); Dysfunction of both eustachian tubes; Tobacco abuse Start: 03-03-2024 End: 03-03-2024 ambulatory SHELDON LAL Not Available Start: 03-03-2024 End: 03-03-2024 Patient encounter procedure Dominik Mcdaniel MD Work Phone: [facility] Work Phone: Start: 02-18-2024 End: 02-18-2024 Refill Dominik Mcdaniel MD Work Phone: [facility] Comment on above: Lower leg edema; Gastroesophageal reflux disease without esophagitis Start: 02-10-2024 End: 02-10-2024 Patient encounter procedure Dominik Mcdaniel MD Work Phone: [facility] Work Phone: Start: 02-03-2024 End: 02-03-2024 Patient encounter procedure Dominik Mcdaniel MD Work Phone: [facility] Work Phone: Start: 01-31-2024 End: 01-31-2024 Patient encounter procedure Dominik Mcdaniel MD Work Phone: [facility] Work Phone: Start: 01-29-2024 End: 01-31-2024 Refill Dominik Mcdaniel MD Work Phone: [facility] Comment on above: COPD exacerbation (C MS/HCC) Start: 01-21-2024 End: 01-22-2024 Refill Dominik Mcdaniel MD Work Phone: [facility] Comment on above: Type 2 diabetes emir itus with hyperosmolarity without coma, without long-term current use of insulin ([facility]/HCC) Insomnia, unspecifie d type (Primary Dx) Start: 01-20-2024 End: 01-20-2024 Patient encounter procedure Dominik Mcdaniel MD Work Phone: [facility] Work Phone: Start: 01-05-2024 Non-patient / Non-visit Dominik cameron MD Work Phone: [facility] Work Phone: Start: 01-05-2024 End: 01-05-2024 Admission to same day surgery center MD Dominik Mcdaniel Work Phone: [facility] Work Phone: Start: 01-05-2024 End: 01-05-2024 ambulatory MD Dominik Mcdaniel Work Phone: [facility] Work Phone: Start: 12-31-2023 End: 12-31-2023 Bamboo flowsheet Dominik Mcdaniel MD Work Phone: [facility] Start: 12-31-2023 End: 12-31-2023 Bamboo flowsheet Dominik Mcdaniel MD Work Phone: [facility] Start: 12-31-2023 End: 12-31-2023 Office outpatient visit 15 minutes Dominik Mcdaniel MD Work Phone: [facility] Comment on above: COPD exacerbation (C MS/HCC) (Primary Dx) Start: 12-31-2023 End: 12-31-2023 ambulatory DOMINIK MCDANIEL Not Available Start: 12-27-2023 End: 12-27-2023 Office outpatient visit 15 minutes Stephanie Pelayo BUSINESS INTELLIGENCE MANAGER Work Phone: [facility] Comment on above: Pneumonia of left up per lobe due to Mycoplasma pneumoniae (Primary Dx); Type 2 diabetes mellitus with other specified complication (CMS/HCC); Hyperlipidemia, unspecified (CMS/[facility]) Start: 12-27-2023 End: 12-27-2023 ambulatory STEPHANIE PELAYO Not Available Start: 12-27-2023 End: 12-27-2023 Bamboo flowsheet Stephanie Pelayo BUSINESS INTELLIGENCE MANAGER Work Phone: [facility] Start: 12-27-2023 End: 12-27-2023 Bamboo flowsheet Stephanie Pelayo BUSINESS INTELLIGENCE MANAGER Work Phone: [facility] Start: 12-24-2023 End: 12-24-2023 Patient encounter procedure MD Dominik Mcdaniel Work Phone: [facility] Work Phone: Start: 12-17-2023 End: 12-17-2023 ambulatory STEPHANIE PELAYO Not Available Start: 12-13-2023 End: 12-13-2023 Refill Stephanie Pelayo BUSINESS INTELLIGENCE MANAGER Work Phone: [facility] Comment on above: Lower leg edema Start: 12-08-2023 End: 12-08-2023 Telephone encounter Dominik Mcdaniel MD Work Phone: [facility] Start: 12-08-2023 Non-patient / Non-visit MD Beverly Mcdaniel Work Phone: [facility] Work Phone: Start: 12-08-2023 End: 12-08-2023 Admission to same day surgery center MD Dominik Mcdaniel Work Phone: [facility] Work Phone: Start: 12-08-2023 End: 12-08-2023 ambulatory MD Dominik Mcdaniel Work Phone: [facility] Work Phone: Start: 12-07-2023 End: 12-07-2023 Orders Only Stephanie Pelayo NP Work Phone: [facility] Comment on above: Type 2 diabetes emir itus with hyperosmolarity without coma, without long-term current use of insulin (CMS/HCC) (Primary Dx); Morbid (severe) obesity due to excess calories (CMS/HCC) Start: 12-03-2023 End: 12-03-2023 Orders Only Stephanie Pelayo NP Work Phone: [facility] Comment on above: Acquired hypothyroid ism (CMS/HCC) (Primary Dx) Start: 12-02-2023 End: 12-02-2023 Patient encounter procedure Stephanie Pelayo NP Work Phone: [facility] Comment on above: Tobacco dependence s yndrome (Primary Dx); Well adult exam; Encounter for screening mammogram for malignant neoplasm of breast; Mixed hyperlipidemia (CMS/HCC); Essential hypertension (CMS/HCC); Allergic rhinitis, unspecified seasonality, unspecified trigger; Obstructive sleep apnea; Morbid (severe) obesity due to excess calories (CMS/HCC); Vitamin D deficiency; Hyperplastic colonic polyp, unspecified part of colon; Temporary low platelet count (CMS/HCC); Acquired hypothyroidism (CMS/HCC); Generalized anxiety disorder (CMS/HCC); History of hysterectomy; Chronic obstructive pulmonary disease, unspecified COPD type (CMS/HCC); Acute pain of left knee; Degeneration of intervertebral disc of lumbar region, unspecified whether pain present; IFG (impaired fasting glucose); Personal history of nicotine dependence; Lower leg edema; High risk medication use Start: 12-02-2023 End: 12-02-2023 Patient encounter status Stephanie Pelayo BUSINESS INTELLIGENCE MANAGER Work Phone: [facility] Work Phone: Start: 12-02-2023 End: 12-02-2023 ambulatory STEPHANIE PELAYO Not Available Start: 12-02-2023 End: 12-02-2023 Bamboo flowsheet Stephanie Pelayo BUSINESS INTELLIGENCE MANAGER Work Phone: [facility] Start: 12-02-2023 End: 12-02-2023 Bamboo flowsheet Stephanie Pelayo BUSINESS INTELLIGENCE MANAGER Work Phone: [facility] Start: 11-26-2023 End: 11-26-2023 Patient encounter procedure MD Dominik Mcdaniel Work Phone: [facility] Work Phone: Start: 11-19-2023 End: 11-19-2023 Bamboo flowsheet Bj Moore BUSINESS INTELLIGENCE MANAGER Work Phone: [facility] Start: 11-19-2023 End: 11-19-2023 Bamboo flowsheet Bj Moore BUSINESS INTELLIGENCE MANAGER Work Phone: [facility] Start: 11-19-2023 End: 11-19-2023 Office outpatient visit 25 minutes Bj Moore BUSINESS INTELLIGENCE MANAGER Work Phone: [facility] Comment on above: Primary osteoarthrit is of left knee (Primary Dx); Left knee pain, unspecified chronicity Start: 11-19-2023 End: 11-19-2023 ambulatory BJ MOORE Not Available Start: 11-17-2023 Non-patient / Non-visit MD Beverly Mcdaniel Work Phone: [facility] Work Phone: Start: 11-17-2023 End: 11-17-2023 Admission to same day surgery center MD Dominik Mcdaniel Work Phone: [facility] Work Phone: Start: 11-17-2023 End: 11-17-2023 ambulatory MD Dominik Mcdaniel Work Phone: [facility] Work Phone: Start: 11-05-2023 End: 11-05-2023 Bamboo flowsheet Elia Kumari DO Work Phone: [facility] Start: 11-05-2023 End: 11-05-2023 Bamboo flowsheet Elia Kumari DO Work Phone: [facility] Start: 11-05-2023 End: 11-05-2023 Office outpatient new 45 minutes Elia Kumari DO Work Phone: [facility] Comment on above: Primary osteoarthrit is of left knee (Primary Dx); Left knee pain, unspecified chronicity Start: 11-05-2023 End: 11-05-2023 ambulatory ELIA KUMARI Not Available Start: 11-02-2023 End: 11-02-2023 Patient encounter procedure MD Dominik Mcdaniel Work Phone: [facility] Work Phone: Start: 10-29-2023 End: 10-29-2023 Refill Dominik Mcdaniel MD Work Phone: [facility] Comment on above: Gastroesophageal ref lux disease without esophagitis Start: 10-25-2023 End: 10-25-2023 Refill Dominik Mcdaniel MD Work Phone: [facility] Comment on above: Essential hypertensi on (CMS/[facility]) Start: 10-22-2023 End: 10-22-2023 ambulatory [facility] Start: 10-20-2023 Non-patient / Non-visit MD Beverly Mcdaniel Work Phone: [facility] Work Phone: Start: 10-20-2023 End: 10-20-2023 Admission to same day surgery center MD Dominik Mcdaniel Work Phone: [facility] Work Phone: Start: 10-20-2023 End: 10-20-2023 ambulatory MD Dominik Mcdaniel Work Phone: [facility] Work Phone: Start: 10-19-2023 End: 10-19-2023 Office outpatient visit 25 minutes Stephanie Pelayo BUSINESS INTELLIGENCE MANAGER Work Phone: [facility] Comment on above: Acute pain of left k nee (Primary Dx); Morbid (severe) obesity due to excess calories (CMS/HCC); Body mass index (BMI) 45.0-49.9, adult (CMS/HCC); Thrombocytopenia, unspecified (CMS/HCC); Sacroiliitis, not elsewhere classified (CMS/HCC); Arthralgia, unspecified joint; Lower leg edema Start: 10-19-2023 End: 10-19-2023 ambulatory STEPHANIE PELAYO Not Available Start: 10-19-2023 End: 10-19-2023 Bamboo flowsheet Stephanie Pelayo BUSINESS INTELLIGENCE MANAGER Work Phone: [facility] Start: 10-19-2023 End: 10-19-2023 Bamboo flowsheet Stephanie Pelayo BUSINESS INTELLIGENCE MANAGER Work Phone: [facility] Start: 10-12-2023 End: 10-12-2023 Emergency department patient visit MD Dominik Mcdaniel Work Phone: [facility] Work Phone: Start: 10-04-2023 End: 10-04-2023 Patient encounter procedure MD Dominik Mcdaniel Work Phone: [facility] Work Phone: Start: 10-01-2023 End: 10-01-2023 ambulatory GIOVANNI Thornton JUAN CARLOS [facility] Start: 09-28-2023 End: 09-28-2023 ambulatory MD Dominik Mcdaniel Work Phone: [facility] Work Phone: Start: 09-28-2023 End: 09-28-2023 Patient encounter procedure MD Dominik Mcdaniel Work Phone: [facility] [place] Work Phone: Start: 09-16-2023 Non-patient / Non-visit MD Beverly Mcdaniel Work Phone: [facility] Work Phone: Start: 09-10-2023 End: 09-10-2023 Patient encounter procedure MD Dominik Mcdaniel Work Phone: [facility] [place] Work Phone: Start: 08-13-2023 End: 08-13-2023 ambulatory GIOVANNI Thornton [facility] Start: 08-06-2023 End: 08-06-2023 Patient encounter procedure MD Dominik Mcdaniel Work Phone: [facility] Work Phone: Start: 07-22-2023 Non-patient / Non-visit MD Beverly Mcdaniel Work Phone: [facility] Work Phone: Start: 07-22-2023 End: 07-22-2023 Patient encounter procedure MD Dominik [facility]cd[facility]iel Work [facility] Work [facility] Start: 07-16-2023 End: 07-16-2023 ambulatory GIOVANNI Thornton [facility] Start: 07-09-2023 End: 07-09-2023 Patient encounter procedure MD Dominik Mcdaniel Work Phone: [facility] Work Phone: Start: 07-02-2023 End: 07-02-2023 ambulatory NOEMÍ Araujo KEMAL [facility] Start: 06-18-2023 End: 06-18-2023 ambulatory GIOVANNI Thornton [facility] Start: 06-04-2023 End: 06-04-2023 ambulatory MD Dominik Mcdaniel Work Phone: [facility] Work Phone: Start: 06-04-2023 End: 06-04-2023 Patient encounter procedure MD Dominik Mcdaniel Work Phone: [facility] [place] Work Phone: Start: 06-04-2023 End: 06-04-2023 Patient encounter procedure MD Dominik Mcdaniel Work Phone: [facility] [place] Work Phone: Start: 05-14-2023 End: 05-14-2023 ambulatory [facility] Start: 04-16-2023 End: 04-16-2023 ambulatory [facility] Start: 2023 Refill Dominik Rivera Work Phone: [facility] Comment on above: Anxiety Start: 03-19-2023 End: 03-19-2023 ambulatory [facility] Start: 03-05-2023 End: 03-05-2023 ambulatory [facility] Start: 12-01-2022 End: 12-01-2022 ambulatory MD Dominik Mcdaniel Work Phone: [facility] Work Phone: Start: 12-01-2022 End: 12-01-2022 Departed Referred MD Dominik Mcdaniel Work Phone: [facility] [place] Work Phone: Start: 01-09-2021 End: 01-10-[address] DOMINIK MCDANIEL Facility:[facility] Start: 01-31-2018 End: 02-01-2018 Patient encounter procedure [facility] Procedures Date Procedure Procedure Detail Performing Clinician Start: 09-28-2024 Respiratory Panel (PCR) Dominik Mcdaniel MD Work Phone: Start: 09-28-2024 Computed tomography of abdomen and pelvis with contrast Dominik Mcdaniel MD Work Phone: Start: 09-28-2024 CT angiography of thorax Dominik Mcdaniel MD Work Phone: Start: 09-20-2024 Parotidectomy Dominik ruiz MD Work Phone: Start: 09-12-2024 Basic metabolic pane l calcium total Sheldon Redd Arjunsuzanna DO Work Phone: Start: 09-12-2024 Complete blood count with white cell differential, automated Sheldon Lal DO Work Phone: Start: 08-15-2024 Urnls dip stick/tabl et rgnt non-auto w/o micrscp Roxie Rodriguez BUSINESS INTELLIGENCE MANAGER Work Phone: Start: 08-01-2024 SURESWAB(R) ADVANCED VAGINITIS PLUS, TMA Roxie Rodriguez BUSINESS INTELLIGENCE MANAGER Work Phone: Start: 08-01-2024 Plain X-ray of left hand Dominik Mcdaniel MD Work Phone: Start: 08-01-2024 Urnls dip stick/tabl et rgnt non-auto w/o micrscp Roxie Rodriguez BUSINESS INTELLIGENCE MANAGER Work Phone: Start: 07-19-2024 Piperacillin/tazobactam Comment on above: Performed By: #### C BC-4A, ENA6, ANAFXT, ESRCRP, B12+, VD25, CK, CCP, RHF #### [facility] [address] [facility], [address] Start: 07-11-2024 Cyclic citrullinated peptide antibody Comment on above: Performed By: #### C BC-4A, ENA6, ANAFXT, ESRCRP, B12+, VD25, CK, CCP, RHF #### [facility] [address] [facility], [address] Start: 06-29-2024 X-ray of cervical spine Dominik Mcdaniel MD Work Phone: Start: 03-31-2024 TSH W/REFLEX TO FT4 Mar amanuel Mcdaniel MD Work Phone: Start: 03-31-2024 Hemoglobin glycosyla giovanna a1c Dominik Mcdaniel MD Work Phone: Start: 03-20-2024 Plain X-ray of left shoulder Dominik Mcdaniel MD Work Phone: Start: 03-20-2024 X-ray of right knee, four views Dominik Mcdaniel MD Work Phone: Start: 01-05-2024 DH Nerve Radio Frequ ency (Bilateral) MD Dominik Mcdaniel Work Phone: Start: 12-17-2023 Mammography Stephanie Pelayo BUSINESS INTELLIGENCE MANAGER Work Phone: Start: 12-08-2023 Local anesthetic lum bar facet joint nerve block MD Dominik Mcdaniel Work Phone: Start: 11-19-2023 Arthrocentesis aspir&/inj major jt/bursa w/o us Bj Moore BUSINESS INTELLIGENCE MANAGER Work Phone: Start: 11-17-2023 Local anesthetic lum bar facet joint nerve block MD Dominik Mcdaniel Work Phone: Start: 11-05-2023 Arthrocentesis aspir&/inj major jt/bursa w/o us Elia Kumari DO Work Phone: Start: 10-20-2023 Epidural injection o f lumbar spine using fluoroscopic guidance MD Dominik Mcdaniel Work Phone: Start: 10-12-2023 Plain X-ray of left tibia and left fibula MD Dominik Mcdaniel Work Phone: Start: 10-12-2023 Radiologic examinati on of knee MD Dominik Mcdaniel Work Phone: Start: 10-12-2023 Duplex scan of lower limb veins MD Dominik Mcdaniel Work Phone: Start: 10-01-2023 Follow-up visit Follow-up GIOVANNI W JUAN CARLOS Start: 09-28-2023 MR lumbar spine wo con MD Dominik Mcdaniel Work Phone: Start: 06-04-2023 Plain x-ray of pelvi s and lower extremity MD Dominik Mcdaniel Work Phone: Start: 06-04-2023 Radiography of thora cic spine MD Dominik Mcdaniel Work Phone: Start: 06-04-2023 X-ray of lumbar spin e, four views MD Dominik Mcdaniel Work Phone: Start: 07-20-2022 Colonoscopy Dominik Mcdaniel MD Work Phone: Start: 10-10-2021 Mammography Dominik Mcdaniel MD Work Phone: Start: 09-13-2018 History of tympanostomy Myring otomy tube(s) status Dominik Mcdaniel MD Work Phone: Start: 01-31-2018 HEPATITIS B SURFACE ANTIBODY [employer] Start: 01-31-2018 MUMPS ANTIBODY, IGG DOMENIC [employer]Y [employer] Start: 01-31-2018 RUBELLA ANTIBODY, IGG L INDSAY [employer] Start: 01-31-2018 RUBEOLA ANTIBODY IGG LI NDSAY [employer] Start: 01-31-2018 VARICELLA ZOSTER ANTIBODY, IGG [employer] Start: 03-26-2016 H/O: hysterectomy History of hystere ctomy Dominik Mcdaniel MD Work Phone: H/O: hysterectomy History of hysterectomy Stephanie Pelayo NP Work Phone: H/O: surgery History of parotidectomy Dominik Mcdaniel MD Work Phone: H/O: surgery History of parotidectomy Pedro Luis Baca MD Plan of Treatment Date Care Activity Detail Author Start: 07-20-2032 Screening for malignant neoplasm of colon [facility] Start: 06-23-2025 Urine screening for protein Diabetes: Urine Protein Screening [facility] Start: 01-08-2025 Glaucoma screening Diabetes: Retinopathy Screening [facility] Start: 12-16-2024 Screening for malignant neoplasm of breast Mammogram [facility] Start: 12-01-2024 Urine screening for protein Diabetes: Urine Protein Screening [facility] Start: 11-20-2024 End: 11-20-2024 Patient encounter procedure 11/20/2024 8:00 AM EDT Office Visit [facility] [address] [facility] [place] [phone] Roxie Rodriguez NP [address] [place], [place] [id number] [facility] Start: 10-30-2024 Influenza vaccination Influenza Vaccine (#1) [facility] Start: 10-26-2024 End: 10-26-2024 [facility] Start: 10-16-2024 End: 10-16-2024 Patient encounter procedure [facility] Comment on above: Arrived Start: 10-13-2024 End: 10-13-2024 Patient encounter procedure 10/13/2024 10:15 AM EDT Office Visit [facility] [address] [place] [address] Sheldon Lal DO [address] [place] [address] Arrived [facility] Comment on above: Arrived Start: 10-08-2024 [facility] Start: 10-07-2024 [facility] Start: 10-06-2024 End: 10-06-2024 [facility] Start: 10-05-2024 [facility] Start: 10-04-2024 Referral to infectious diseases physician [facility] Start: 10-04-2024 Referral to palliative care physician [facility] Start: 10-04-2024 [facility] Start: 10-03-2024 [facility] Start: 10-02-2024 [facility] Start: 10-01-2024 [facility] Start: 09-30-2024 [facility] Start: 09-29-2024 Comprehensive metabolic 2000 panel - Serum or Plasma [facility] Start: 09-29-2024 [facility] Start: 09-28-2024 Bacteria identified in Blood by Culture Blood Culture [facility] Start: 09-28-2024 End: 09-28-2024 [facility] Start: 09-28-2024 Consultation [facility] Start: 09-28-2024 Hospital admission [facility] Start: 09-28-2024 [facility] Start: 09-28-2024 End: 09-28-2024 Patient encounter procedure [facility] Start: 09-28-2024 End: 09-28-2024 [facility] Start: 09-28-2024 Urine culture [facility] Start: 09-22-2024 Hemoglobin A1c measurement Diabetes: Hemoglobin A1C [facility] Start: 09-22-2024 End: 09-22-2024 Patient encounter procedure [facility] [place] Comment on above: Arrived Start: 09-20-2024 [facility] Start: 09-20-2024 [facility] Start: 09-15-2024 End: 09-15-2024 Patient encounter procedure 09/15/2024 9:15 AM EDT Office Visit [facility] [address] [place] [address] Sheldon Lal, [address] [place] [address] [facility] Start: 09-12-2024 End: 09-12-2024 Patient encounter procedure 09/12/2024 4:15 PM EDT Office Visit [facility] [address] [place] [phone] Nadia Palmer, DPM [address] [place], [place] [phone] [facility] Start: 09-11-2024 End: 09-11-2024 Patient encounter procedure [facility] Comment on above: Arrived Start: 09-08-2024 End: 09-08-2024 Patient encounter procedure 09/08/2024 9:15 AM EDT Office Visit [facility] [address] [place] [phone] Sheldon Lal, DO [address] [place] [address] [facility] Start: 08-29-2024 End: 08-29-2024 Patient encounter procedure 08/29/2024 9:15 AM EDT Office Visit [facility] [address] [place] [phone] Samir Weinstein, DPM [address] [place], [place] [phone] [facility] Start: 08-28-2024 End: 08-28-2025 Creatinine [Mass/volume] in Serum or Plasma Creatinine, Serum Lab Routine Blood tests prior to treatment or procedure Expected: 08/28/2024 (Approximate), Expires: 08/28/2025 [facility] Comment on above: Expected: 08/28/2024 (Approximate), Expi res: 08/28/2025 Start: 08-28-2024 End: 08-28-2025 CT Neck W contrast IV CT soft tissue neck w IV contrast Imaging STAT Cervical adenopathy Expected: 08/28/2024, Expires: 08/28/2025 [facility] Work Phone: Comment on above: Expected: 08/28/2024, Expires: Start: 08-28-2024 End: 08-28-2024 Patient encounter procedure 08/28/2024 9:15 AM EDT Office Visit [facility] [address] [place] [phone] Sheldon Lal, DO [address] [place] [address] Cervical adenopathy [facility] Comment on above: Cervical adenopathy Start: 08-24-2024 End: 08-24-2024 Patient encounter procedure 08/24/2024 1:15 PM EDT Office Visit [facility] [address] [place] [address] Nadia Palmer, DPM [address] [place] [phone] Open wound of right foot excluding one or more toes, initial encounter [facility] Comment on above: Open wound of right foot excluding one o r more toes, initial encounter Start: 08-15-2024 End: 08-15-2024 Patient encounter procedure [facility] Comment on above: Arrived Start: 08-01-2024 Plain X-ray of left hand XR hand LT min 3V* [facility] Start: 08-01-2024 XR Hand - left GE 3 Views [facility] Start: 08-01-2024 End: 08-01-2025 Bacteria identified in Urine by Culture Urine culture (clean catch) Microbiology Routine Dysuria Vaginal itching Expected: 08/01/2024 (Approximate), Expires: 08/01/2025 [facility] Comment on above: Expected: 08/01/2024 (Approximate), Expi res: 08/01/2025 Start: 08-01-2024 End: 08-01-2025 SURESWAB(R) ADVANCED VAGINITIS PLUS, TMA SURESWAB(R) ADVANCED VAGINITIS PLUS, TMA Pathology and Cytology Routine Dysuria Vaginal itching Expected: 08/01/2024 (Approximate), Expires: 08/01/2025 [facility] Work Phone: Comment on above: Expected: 08/01/2024 (Approximate), Expi res: 08/01/2025 Start: 08-01-2024 End: 08-01-2025 Urinalysis complete panel - Urine Urinalysis with reflex microscopic (clean catch) Lab Routine Dysuria Vaginal itching Expected: 08/01/2024 (Approximate), Expires: 08/01/2025 [facility] Comment on above: Expected: 08/01/2024 (Approximate), Expi res: 08/01/2025 Start: 08-01-2024 End: 08-01-2024 Patient encounter procedure [facility] Comment on above: Arrived Start: 07-17-2024 End: 07-17-2024 Patient encounter procedure [facility] Comment on above: Arrived Start: 07-14-2024 End: 07-14-2024 Patient encounter procedure 07/14/2024 9:20 AM EDT Office Visit [facility] [address] [place] [phone] Dominik Mcdaniel MD [address] [place] [address] [facility] Start: 07-12-2024 End: 07-12-2024 Patient encounter procedure 07/12/2024 9:00 AM EDT Office Visit [facility] [address] [facility] [address] [place] [address] Emerita Guevara [facility] [address] [facility] [address] [place] [address] [facility] Start: 07-04-2024 End: 07-04-2024 Patient encounter procedure 07/04/2024 9:20 AM EDT Office Visit [facility] [address] [facility] [place] [phone] Dominik Mcdaniel MD [address] [place] [address] Arrived [facility] Comment on above: Arrived Start: 06-30-2024 End: 06-30-2024 Professional / ancillary services management 06/30/2024 11:30 AM EDT Ancillary Procedure [facility] [address] [facility] [address] [place] [address] [facility] Start: 06-28-2024 Hemoglobin A1c measurement Diabetes: Hemoglobin A1C [facility] Start: 06-23-2024 End: 06-23-2025 CBC W Auto Differential panel - Blood CBC and differential Lab Routine Type 2 diabetes mellitus with other specified complication, without long-term current use of insulin Expected: 06/23/2024 (Approximate), Expires: 06/23/2025 [facility] Comment on above: Expected: 06/23/2024 (Approximate), Expi res: 06/23/2025 Start: 06-23-2024 End: 06-23-2025 Comprehensive metabolic 2000 panel - Serum or Plasma Comprehensive metabolic panel Lab Routine Type 2 diabetes mellitus with other specified complication, without long-term current use of insulin Expected: 06/23/2024, Expires: 06/23/2025 [facility] Comment on above: Expected: 06/23/2024, Expires: Start: 06-23-2024 End: 06-23-2025 Hemoglobin A1c/Hemoglobin.total in Blood Hemoglobin A1c Lab Routine Type 2 diabetes mellitus with other specified complication, without long-term current use of insulin Expected: 06/23/2024 (Approximate), Expires: 06/23/2025 [facility] Comment on above: Expected: 06/23/2024 (Approximate), Expi res: 06/23/2025 Start: 06-23-2024 End: 06-23-2025 Microalbumin/Creatinine panel in random Urine Microalbumin / creatinine urine ratio Lab Routine Type 2 diabetes mellitus with other specified complication, without long-term current use of insulin Expected: 06/23/2024 (Approximate), Expires: 06/23/2025 [facility] Work Phone: Comment on above: Expected: 06/23/2024 (Approximate), Expi res: 06/23/2025 Start: 06-23-2024 End: 06-23-2025 US Head and neck soft tissue US head neck soft tissue Imaging Routine Cervical adenopathy Expected: 06/23/2024, Expires: 06/23/2025 [facility] Comment on above: Expected: 06/23/2024, Expires: Start: 06-23-2024 End: 06-23-2024 Patient encounter procedure 06/23/2024 8:00 AM EDT Office Visit [facility] [address] [facility] [place] [address] Dominik Mcdaniel MD [address] [place] [address] Arrived [facility] Comment on above: Arrived Start: 05-12-2024 End: 05-12-2024 ambulatory 05/12/2024 8:00 AM EDT Treatment [facility] [address] [place] [phone] Ruthy Pantoja, PT [address] [place] [address] [facility] Start: 04-28-2024 End: 04-28-2024 ambulatory [facility] Comment on above: Arrived Start: 04-27-2024 Patient referral [facility] Work Phone: Start: 04-21-2024 End: 04-21-2024 ambulatory 04/21/2024 8:00 AM EST Evaluation [facility] [address] [place] [address] Ruthy Pantoja, PT [address] [place] [address] [facility] Start: 04-18-2024 End: 04-18-2025 C reactive protein [Mass/volume] in Serum or Plasma C-reactive protein Lab Routine Arthritis Expected: 04/18/2024 (Approximate), Expires: 04/18/2025 [facility] Comment on above: Expected: 04/18/2024 (Approximate), Expi res: 04/18/2025 Start: 04-18-2024 End: 04-18-2025 CBC W Auto Differential panel - Blood CBC and differential Lab Routine Arthritis Expected: 04/18/2024 (Approximate), Expires: 04/18/2025 [facility] Comment on above: Expected: 04/18/2024 (Approximate), Expi res: 04/18/2025 Start: 04-18-2024 End: 04-18-2025 Comprehensive metabolic 2000 panel - Serum or Plasma Comprehensive metabolic panel Lab Routine Arthritis Expected: 04/18/2024 (Approximate), Expires: 04/18/2025 [facility] Comment on above: Expected: 04/18/2024 (Approximate), Expi res: 04/18/2025 Start: 04-18-2024 End: 04-18-2025 Erythrocyte sedimentation rate Sedimentation rate, automated Lab Routine Arthritis Expected: 04/18/2024 (Approximate), Expires: 04/18/2025 [facility] Comment on above: Expected: 04/18/2024 (Approximate), Expi res: 04/18/2025 Start: 04-18-2024 End: 04-18-2025 Nuclear Ab [Titer] in Serum by Immunofluorescence ARASELI Lab Routine Arthritis Expected: 04/18/2024 (Approximate), Expires: 04/18/2025 [facility] Work Phone: Comment on above: Expected: 04/18/2024 (Approximate), Expi res: 04/18/2025 Start: 04-18-2024 End: 04-18-2025 Rheumatoid factor [Units/volume] in Serum or Plasma Rheumatoid factor Lab Routine Arthritis Expected: 04/18/2024 (Approximate), Expires: 04/18/2025 [facility] Comment on above: Expected: 04/18/2024 (Approximate), Expi res: 04/18/2025 Start: 04-18-2024 End: 04-18-2025 TSH W/REFLEX TO FT4 TSH W/REFLEX TO FT4 Lab Routine Arthritis Expected: 04/18/2024 (Approximate), Expires: 04/18/2025 [facility] Comment on above: Expected: 04/18/2024 (Approximate), Expi res: 04/18/2025 Start: 03-03-2024 Hemoglobin A1c measurement Diabetes: Hemoglobin A1C [facility] Start: 03-03-2024 End: 03-03-2024 Patient encounter procedure [facility] Comment on above: Arrived Start: 01-13-2024 End: 01-13-2024 Patient encounter procedure 01/13/2024 4:30 PM EST Office Visit [facility] [address] [place] [phone] Stephanie Pelayo, BUSINESS INTELLIGENCE MANAGER [address] [place], [place] [phone] [facility] Start: 01-05-2024 [facility] Start: 01-03-2024 End: 12-02-2024 Thyrotropin [Units/volume] in Serum or Plasma TSH Lab Routine Acquired hypothyroidism (CMS/HCC) Expected: 01/03/2024 (Approximate), Expires: 12/02/2024 [facility] Work Phone: Comment on above: Expected: 01/03/2024 (Approximate), Expi res: 12/02/2024 Start: 12-31-2023 End: 12-31-2023 Patient encounter procedure 12/31/2023 8:40 AM EDT Office Visit [facility] [address] [place] [facility] [place] [phone] Dominik Mcdaniel MD [address] [place] [address] Arrived [facility] Comment on above: Arrived Start: 12-27-2023 End: 12-27-2023 Patient encounter procedure 12/27/2023 6:00 PM EDT Office Visit [facility] [address] [facility] [place] [phone] Stephanie Pelayo, VERENA [address] [place] [address] Arrived [facility] Comment on above: Arrived Start: 12-17-2023 End: 12-17-2023 Professional / ancillary services management [facility] Start: 12-08-2023 [facility] Start: 12-03-2023 End: 12-03-2023 Patient encounter procedure 12/03/2023 8:30 AM EDT Office Visit [facility] [address] [place] [address] Bj Moore, BUSINESS INTELLIGENCE MANAGER [address] [place] [address] [facility] Start: 12-02-2023 End: 12-02-2023 Patient encounter procedure [facility] Comment on above: Arrived Start: 12-02-2023 End: 12-01-2024 25-hydroxyvitamin D3 [Mass/volume] in Serum or Plasma Vitamin D 25 hydroxy Lab Routine Vitamin D deficiency Expected: 12/02/2023 (Approximate), Expires: 12/01/2024 [facility] Comment on above: Expected: 12/02/2023 (Approximate), Expi res: 12/01/2024 Start: 12-02-2023 End: 12-01-2024 CBC W Auto Differential panel - Blood CBC and differential Lab Routine Encounter for screening mammogram for malignant neoplasm of breast Mixed hyperlipidemia (CMS/HCC) Essential hypertension (CMS/HCC) Expected: 12/02/2023 (Approximate), Expires: 12/01/2024 [facility] Comment on above: Expected: 12/02/2023 (Approximate), Expi res: 12/01/2024 Start: 12-02-2023 End: 12-01-2024 Comprehensive metabolic 2000 panel - Serum or Plasma Comprehensive metabolic panel Lab Routine Mixed hyperlipidemia (CMS/HCC) Essential hypertension (CMS/HCC) Expected: 12/02/2023 (Approximate), Expires: 12/01/2024 [facility] Comment on above: Expected: 12/02/2023 (Approximate), Expi res: 12/01/2024 Start: 12-02-2023 End: 12-01-2024 CT Chest for screening WO contrast CT lung screening low dose Imaging Routine Tobacco dependence syndrome Personal history of nicotine dependence Expected: 12/02/2023, Expires: 12/01/2024 [facility] Comment on above: Expected: 12/02/2023, Expires: Start: 12-02-2023 End: 01-31-2025 DBT Breast - bilateral screening Bilateral screening mammogram with tomosynthesis Imaging Routine Encounter for screening mammogram for malignant neoplasm of breast Expected: 12/02/2023, Expires: 01/31/2025 [facility] Work Phone: Comment on above: Expected: 12/02/2023, Expires: Start: 12-02-2023 End: 12-01-2024 Hemoglobin A1c/Hemoglobin.total in Blood Hemoglobin A1c Lab Routine IFG (impaired fasting glucose) Expected: 12/02/2023 (Approximate), Expires: 12/01/2024 [facility] Comment on above: Expected: 12/02/2023 (Approximate), Expi res: 12/01/2024 Start: 12-02-2023 End: 12-01-2024 Lipid 1996 panel - Serum or Plasma Lipid panel Lab Routine Mixed hyperlipidemia (CMS/HCC) Essential hypertension (CMS/HCC) Expected: 12/02/2023 (Approximate), Expires: 12/01/2024 [facility] Comment on above: Expected: 12/02/2023 (Approximate), Expi res: 12/01/2024 Start: 12-02-2023 End: 12-01-2024 Thyrotropin [Units/volume] in Serum or Plasma TSH Lab Routine Acquired hypothyroidism (CMS/HCC) Expected: 12/02/2023 (Approximate), Expires: 12/01/2024 [facility] Comment on above: Expected: 12/02/2023 (Approximate), Expi res: 12/01/2024 Start: 11-19-2023 End: 11-19-2023 Patient encounter procedure 11/19/2023 8:30 AM EDT Office Visit [facility] [address] [place] [address] Bj Moore NP [address] [facility] [place] [address] Arrived [facility] Comment on above: Arrived Start: 11-17-2023 [facility] Start: 11-08-2023 End: 11-08-2023 Patient encounter procedure 11/08/2023 6:30 PM EDT Office Visit [facility] [address] [place] [address] Stephanie Pelayo NP [address] [place], [place] [id number] [facility] Start: 11-05-2023 End: 11-05-2023 Patient encounter procedure [facility] Comment on above: Arrived Start: 10-31-2023 Influenza vaccination Influenza Vaccine (#1) [facility] Start: 10-20-2023 [facility] Start: 10-19-2023 End: 10-19-2023 Patient encounter procedure 10/19/2023 2:30 PM EDT Office Visit [facility] [address] [place] [id number] Stephanie Pelayo NP [address] [place] [address] Arrived [facility] Comment on above: Arrived Start: 10-12-2023 Duplex scan of lower limb veins US venous duplex LE LT [facility] Start: 10-12-2023 US Lower extremity vein - left [facility] Start: 04-23-2023 End: 04-23-2023 Patient encounter procedure 04/23/2023 9:15 AM EST Office Visit [facility] [address] [place] [phone] Sheldon Lal DO [address] [place] [address] [facility] Start: 12-01-2022 Source specific culture [facility] Start: 12-01-2022 Ear Culture Ear Culture [facility] Start: 10-10-2022 Screening for malignant neoplasm of breast Mammogram [facility] Start: 09-27-2021 Screening for malignant neoplasm of colon FIT-DNA [facility] Start: 02-26-2021 Urine screening for protein Diabetes: Urine Protein Screening [facility] Start: 1971 Glaucoma screening Diabetes: Retinopathy Screening [facility] Start: 1961 Screening for malignant neoplasm of colon [facility] Start: 1960 Screening for malignant neoplasm of lung Lung Cancer Screening Shared Decision Making [facility] Electromyography [facility] Patient Education [facility] Work Phone: Patient referral [facility] Work Phone: Procalcitonin [Mass/volume] in Serum or Plasma [facility] XR Cervical spine Vi ews W flexion and W extension [facility] Immunizations Immunization Date Immunization Notes Care Provider Maki guillen 12-02-2023 influenza, seasonal, injectable, preservative free Stephanie Pelayo BUSINESS INTELLIGENCE MANAGER Work Phone: [facility] 12-02-2023 SARS-COV-2 (COVID-19 ) vaccine, mRNA, spike protein, LNP, PF, mariam-sucrose, 30 mcg/0.3 mL Stephanie Pelayo BUSINESS INTELLIGENCE MANAGER Work Phone: [facility] 12-02-2023 influenza virus vaccine, unspecified formulation Dominik Mcdaniel MD Work Phone: [facility] 12-08-2022 Influenza, injectabl e, Madin [place] Canine Kidney, preservative free, quadrivalent Dominik Mcdaniel MD Work Phone: [facility] 12-08-2022 influenza virus vaccine, unspecified formulation Stephanie Pelayo BUSINESS INTELLIGENCE MANAGER Work Phone: [facility] 12-13-2021 Influenza, injectabl e, Madin [place] Canine Kidney, preservative free, quadrivalent Dominik Mcdaniel MD Work Phone: [facility] 09-09-2021 COVID-19 mRNA-1273 (Moderna) Dominik Mcdaniel MD Work Phone: [facility] 01-02-2021 COVID-19 mRNA-1273 (Moderna) Dominik Mcdaniel MD Work Phone: [facility] 11-26-2020 influenza, injectabl e, quadrivalent, preservative free Dominik Mcdaniel MD Work Phone: [facility] 06-07-2020 COVID-19 mRNA-1273 (Moderna) Dominik Mcdaniel MD Work Phone: [facility] 05-10-2020 COVID-19 mRNA-1273 (Moderna) Dominik Mcdaniel MD Work Phone: [facility] 01-29-2019 influenza, injectabl e, quadrivalent, preservative free Dominik Mcdaniel MD Work Phone: [facility] 09-27-2016 zoster vaccine, live Dominik jackson MD Work Phone: [facility] 12-18-2014 influenza, injectabl e, quadrivalent, preservative free Dominik Mcdaniel MD Work Phone: [facility] 11-29-2014 influenza, seasonal, injectable Dominik Mcdaniel MD Work Phone: [facility] 03-01-2006 tetanus toxoid, redu daquan diphtheria toxoid, and acellular pertussis vaccine, adsorbed Dominik Mcdaniel MD Work Phone: [facility] Payers Date Payer Category Payer Unknown [id number] 2024 Unknown [id number] 2023 Self-pay [id number] 2023 Self-pay [id number] 2022 Private Health Insurance [id number] 2022 Unknown [employer] [id number] 2022-Present [address] [place] [address] [id number] 2016 Unknown [id number] 1961 Unknown [id number] 2.16.840.1.837528.3.579.2.5 93 1961 Unknown [id number] 2.16.840.1.636079.3.579.2.1 286 1961 Unknown [id number] 2.16.840.1.716028.3.579.2.1 286 1961 Unknown [id number] 2.16.840.1.916552.3.579.2.1 286 1961 Unknown [id number] 2.16.840.1.674546.3.579.2.1 286 1961 Unknown [id number] 2.16.840.1.474636.3.579.2.1 286 1961 Unknown [id number] 2.16.840.1.766656.3.579.2.1 286 1961 Unknown [id number] 2.16.840.1.779885.3.579.2.1 286 1961 Unknown [id number] 2.16.840.1.492956.3.579.2.1 286 1961 Unknown [id number] 2.16.840.1.464092.3.579.2.1 286 1961 Unknown [id number] 2.16.840.1.103867.3.579.2.1 286 1961 Unknown [id number] 2.16.840.1.776498.3.579.2.1 259 1961 Unknown [id number] 2.16.840.1.505105.3.579.2.1 259 1961 Unknown [id number] 2.16.840.1.617624.3.579.2.1 259 1961 Unknown [id number] 2.16.840.1.644052.3.579.2.1 259 1961 Unknown [id number] 2.16.840.1.613419.3.579.2.1 259 1961 Unknown [id number] 2.16.840.1.998231.3.579.2.1 259 1961 Unknown [id number] 2.16.840.1.296900.3.579.2.1 259 1961 Unknown [id number] 2.16.840.1.163729.3.579.2.1 259 1961 Unknown [id number] 2.16.840.1.174947.3.579.2.1 259 1961 Unknown [id number] 2.16.840.1.676359.3.579.2.1 259 1961 Unknown [id number] 2.16.840.1.898196.3.579.2.1 259 1961 Unknown [id number] 2.16.840.1.330408.3.579.2.1 259 1961 Unknown [id number] 2.16.840.1.836736.3.579.2.1 259 1961 Unknown [id number] 2.16.840.1.674304.3.579.2.1 259 1961 Unknown [id number] 2.16.840.1.582994.3.579.2.1 259 1961 Unknown [id number] 2.16.840.1.168460.3.579.2.1 259 1961 Unknown [id number] 2.16.840.1.754573.3.579.2.1 259 1961 Unknown [id number] 2.16.840.1.881375.3.579.2.1 259 1961 Unknown [id number] 2.16.840.1.321846.3.579.2.1 259 1961 Unknown [id number] 2.16.840.1.720468.3.579.2.1 259 1961 Unknown [id number] 2.16.840.1.005071.3.579.2.1 259 1961 Unknown [id number] 2.16.840.1.972883.3.579.2.1 259 1961 Unknown [id number] 2.16.840.1.732592.3.579.2.1 259 1961 Unknown [id number] 2.16.840.1.702857.3.579.2.1 259 1961 Unknown [id number] 2.16.840.1.876780.3.579.2.1 259 1961 Unknown [id number] 2.16.840.1.434714.3.579.2.1 259 1961 Unknown [id number] 2.16.840.1.400604.3.579.2.1 259 1961 Unknown [id number] 2.16.840.1.748436.3.579.2.1 259 1961 Unknown [id number] 2.16.840.1.528825.3.579.2.1 259 1959 Unknown [id number] Unknown [id number] 2.16.840.1.253053.3.579.2.5 31 Unknown [id number] 2.16.840.1.755425.3.579.2.5 31 Unknown [id number] 2.16.840.1.055300.3.579.2.5 31 Unknown [id number] 2.16.840.1.191082.3.579.2.5 31 Unknown [id number] 2.16.840.1.134824.3.579.2.5 31 Unknown [id number] 2.16.840.1.019591.3.579.2.5 31 Unknown [id number] 2.16.840.1.640526.3.579.2.5 31 Unknown [id number] 2.16.840.1.468590.3.579.2.5 31 Unknown [id number] 2.16.840.1.696461.3.579.2.5 31 Unknown [id number] 2.16.840.1.550363.3.579.2.5 31 Unknown [id number] 2.16.840.1.805070.3.579.2.5 31 Social History Date Type Detail Facility Start: 10-09-2019 End: 05-17-2024 Tobacco smoking status NHIS Smoker (finding) [facility] Start: 1960 Sex Assigned At Female F [facility] Start: 12-01-2022 End: 08-01-2024 Tobacco smoking status LAIS Smokes tobacco daily [facility] History of tobacco use Cigarette Smoker [facility] Start: 12-01-2022 End: 10-15-2023 Cigarettes smoked current (pack per day) - Reported 1 [facility] Start: 12-01-2022 End: 08-01-2024 Tobacco use and exposure Smokeless tobacco non-user [facility] Start: 02-15-2023 End: 10-16-2024 Alcohol intake Ex-drinker (finding) [facility] Start: 08-05-2022 End: 10-15-2023 Humiliation, Afraid, Rape, and Kick questionnaire [HARK] [facility] Within the last year , have you been afraid of your partner or ex-partner? No [facility] Are you now , , , , never or living with a partner? [facility] How often to you hav e a drink containing alcohol? Never [facility] How many standard dr inks containing alcohol do you have on a typical day? Patient does not drink [facility] How hard is it for y ou to pay for the very basics like food, housing, medical care, and heating Somewhat hard [facility] Do you feel stress - tense, restless, nervous, or anxious, or unable to sleep at night because your mind is troubled all the time - these days [OSQ] To some extent [facility] (I/We) worried ashish er (my/our) food would run out before (I/we) got money to buy more. Never true [facility] Start: 12-01-2022 End: 12-02-2023 Alcohol Comment No alcohol since 2013 [facility] Start: 1960 Sex Assigned At Not on file [facility] Do you feel stress - tense, restless, nervous, or anxious, or unable to sleep at night because your mind is troubled all the time - these days [OSQ] Rather much [facility] Start: 03-21-2024 Sex Patient sex un known (finding) [facility] Start: 04-13-2024 End: 08-01-2024 Sex Female (finding) [facility] Start: 08-01-2024 Alcohol Comment No alcohol sin ce 2013, caffeine intake: 2 cups daily [facility] Start: 10-04-2024 SDOH Follow up SDOH Follow up [facility] Work Phone: Goals Date Patient Goal Desired Activity /State Personal health goal Personal health goal Clinical Notes 06-26-2021 to 10-16-2024 Roxie Rodriguez NP - 10/16/2024 8:00 AM EDRaj Rodriguez, VERENA - 10/16/2024 8:00 AM EDRaj Rodriguez, VERENA - 10/16/2024 8:00 AM EDRaj Rodriguez, VERENA - 10/16/2024 8:00 AM EDT Note Date & Type Note Facility 10-16-2024 History of Presen t illness Narrative Associated Problem(s): Fibromyalgia Orders: Ambulatory referral to Pain Medicine; Future Associated Problem(s): Other chronic pain Orders: Ambulatory referral to Pain Medicine; Future HYDROcodone-acetaminophen ([place]) 5-325 MG tablet; Take 1 tablet by mouth every 6 (six) hours if needed for severe pain for up to 2 days Associated Problem(s): Chronic bilateral low back pain with bilateral sciatica Orders: Ambulatory referral to Pain Medicine; Future HYDROcodone-acetaminophen ([place]) 5-325 MG tablet; Take 1 tablet by mouth every 6 (six) hours if needed for severe pain for up to 2 days Associated Problem(s): Type 2 diabetes mellitus, without long-term [...] 7 and Blood pressure less then 130/80. Associated Problem(s): Essential hypertension Continue to check blood pressures at home while staying off of lisinopril-hydrochlorothiazide. If blood pressures continue to stay in normal range, will stay of of medication. If blood pressures increase, will restart medication. Images from the original note were not included. Subjective Patient ID: Shelby Talamantes is a 64 y.o. female who presents for Hospital Follow-up. HPI Flowsheet Row Patient Outreach from 10/10/2024 in [facility] Zonoff with Alexandria Disla RN Hospital Information ED, Hospital or Residential Facility Discharge? Hospital Patient has been contacted within two business days of discharge Yes Diagnosis acute resp failure with hypoxemia, severe sepsis, CA pneum, demand, ischemia, myocardium, copd exac, nicotine dependence, htn, morbid obesiy Discharge Date 10/06/24 Discharged To: Home Setting Discharge Hospital [facility] Engagement Admission Date 09/28/24 Medications Discharge medications [...] was prescribed a buprenorphine patch by a spray painting machine operator. This treatment allowed her to perform daily activities without experiencing pain. However, the patch has since , and was not given any refills after her hospital discharge. Consequently, she has been experiencing a recurrence of body pain and difficulty performing simple tasks such as making a sandwich or bed. She also reports waking up frequently at night due to pain. She is seeking a temporary solution for her pain until she can resume her pain management regimen. She was previously taking hydrocodone 5 mg for pain relief. She had to cancel her contract with Dr. La due to insurance issues and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 Year: No Objective ENT Physical Exam General Examination: General overview: Normal, age-appropriate, no evidence of distress, overweight Head: Normocephalic, atraumatic Eyes: Pupils are equally round and reactive to light and accommodation, extraocular muscles are intact Ears: External ear architecture within normal limits, ear canals are patent, tympanic membranes are intact. Nose: External nose unremarkable, nares patent, septum intact, mild congestion, obvious evidence of smoking Oral cavity: Mucosa moist, no evidence of ulcer, mass, or lesion Throat: Clear Neck/thyroid: Neck supple, full range of motion, obvious palpation of a mass of the left parotid tail region. Mild tenderness. Review of her CT scan reveals evidence of bilateral parotid masses, larger on the left. 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 All of the options, risks, and aspects of this procedure are discussed in depth. Risks include but are not limited to bleeding, infection, facial sweating, poor wound healing, facial nerve injury, serous disability, and . documented in this encounter [facility] 08-31-2024 Telephone encounter Note Please call patient and inform her that the punch biopsy showed hemangioma with thrombosis. This is a benign tumor made of blood vessels. The thrombosis means that there was some clotting of blood with in those vessels. I will plan to see her back as scheduled. [facility] 08-31-2024 Miscellaneous Notes Please call patient and inform her that the punch biopsy showed hemangioma with thrombosis. This is a benign tumor made of blood vessels. The thrombosis means that there was some clotting of blood with in those vessels. I will plan to see her back as scheduled. Patient said she can't elevate when foot is flat on the floor is when pain stops. She will continue bandage and antibiotic/neosporin cream I would ask her to rest, elevate as much as possible. I will call her in meloxicam for pain and Keflex which is an antibiotic just in case. (Kodak Kinsey). Stop Ibuprofen before taking Meloxicam. Please invite her to call back if pain persists. Thanks Ali Patient said she is taking ibuprofen that is nnot helping, her is checking the toe no redness, drainage, and no warmth. She said her put a new bandage on the toe and covers it lightly with a wrap, I asked she said no it is not tight on the toe. And she put antibiotic cream on it as well Is she taking anything for pain - Ibuprofen, Tylenol? Is she having any signs of infection purulent drainage, increased redness at toe, increase warmth at toe? Patient called stating anything she does she has excruciating pain when she lays in bed her toe is very painful she cannot get any sleep documented in this encounter [facility] 08-29-2024 Telephone encounter Note Patient said she can't elevate when foot is flat on the floor is when pain stops. She will continue bandage and antibiotic/neosporin cream [facility] 08-29-2024 Telephone encounter Note I would ask her to rest, elevate as much as possible. I will call her in meloxicam for pain and Keflex which is an antibiotic just in case. (Kodak Kis[place]). Stop Ibuprofen before taking Meloxicam. Please invite her to call back if pain persists. Thanks Ali [facility] 08-29-2024 Telephone encounter Note Approvals with refills [facility] 08-29-2024 Miscellaneous Notes Approvals with refills documented in this encounter [facility] 08-29-2024 Telephone encounter Note Patient said she is taking ibuprofen that is nnot helping, her is checking the toe no redness, drainage, and no warmth. She said her put a new bandage on the toe and covers it lightly with a wrap, I asked she said no it is not tight on the toe. And she put antibiotic cream on it as well T [facility] 08-29-2024 Telephone encounter Note Is she taking anything for pain - Ibuprofen, Tylenol? Is she having any signs of infection purulent drainage, increased redness at toe, increase warmth at toe? [facility] 08-29-2024 Telephone encounter Note Patient called stating anything she does she has excruciating pain when she lays in bed her toe is very painful she cannot get any sleep T [facility] 08-28-2024 History of Present illness Narrative Subjective Patient ID: Shelby Talamantes is a 64 y.o. female who presents for Swollen Glands (New Problem : swollen lymph nodes / recent tooth infection) HPI 64-year-old white female presents today for evaluation of left-sided neck mass. Has noticed enlargement of a mass on the left side. Not having any pain. No history of trauma to this region. Recent history of dental infection. Presents today for evaluation Review of Systems Patient notices swelling in the area of the left parotid gland. No tenderness. No history of similar difficulties. Recent history of dental infection. Does have a history of hearing loss. The rest of her review of systems is unchanged Objective ENT Physical Exam General Examination: General overview: Normal, age-appropriate, no evidence of distress, obese Head: Normocephalic, atraumatic Eyes: Pupils are equally round and reactive to light and accommodation, extraocular muscles are intact Ears: External ear architecture within normal limits, ear canals are patent, tympanic membranes are intact. Nose: External nose multiple abrasions, nares patent, septum intact, no evidence of congestion. Oral cavity: Mucosa moist, no evidence of ulcer, mass, or lesion. Throat: Clear Neck/thyroid: Neck supple, full range of motion, obvious mass effect in the region of the left parotid gland. No tenderness or fluctuance. Lymph nodes: No cervical lymphadenopathy review of ultrasound reveals evidence of a mass effect in the area of the left neck, possible lymph node Skin: Warm and dry, no evidence of [...] Diagnoses and all orders for this visit: Neck mass Comments: Recommend CT scan of the neck for evaluation of possible parotid mass Cervical adenopathy - Ambulatory referral to ENT - CT soft tissue neck w IV contrast; Future Blood tests prior to treatment or procedure - Creatinine, Serum; Future documented in this encounter [facility] 08-24-2024 History of Present illness Narrative Images from the original note were not included. Subjective Patient ID: Shelby Talamantes is a 64 y.o. 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 Pt states has been there for quite a while , started hurting about 3 weeks ago. Pt states her was treating it as a wart, they were using OTC wart strips . Pt states she will occasionally have a sharp pain. Pt states that her family doctor thinks it may be melanoma, no biopsies done. ). HPI Patient presents complaining of painful lesion on the plantar aspect of the right great toe. She states she 1st noticed it about 6-8 weeks ago. Her started treating it with medicated Band-Aids as a wart. She states she treated it for a few weeks but it was not making any improvements. She saw her BUSINESS INTELLIGENCE MANAGER who referred her here and was concerned about melanoma. It is painful with pressure. Review of Systems Medications Current Outpatient Medications: albuterol HFA 90 mcg/act inhaler, USE 2 INHALATIONS EVERY 4 HOURS IF NEEDED FOR WHEEZING OR SHORTNESS OF BREATH, Disp: 17 g, Rfl: 4 atorvastatin (Lipitor) 20 MG tablet, TAKE 1 TABLET DAILY, Disp: 90 tablet, Rfl: 3 bumetanide (Bumex) 1 MG tablet, Take 1 tablet (1 mg) by mouth Daily, Disp: 30 tablet, Rfl: 11 cholecalciferol (Vitamin D-3) 50 MCG (2000 UT) capsule, Take 1 capsule (50 mcg) by mouth Daily, Disp: 90 capsule, Rfl: 3 folic acid (Folvite) 1 MG tablet, Take 1 mg by mouth Daily, Disp: , Rfl: HYDROcodone-acetaminophen ([place]) 5-325 MG tablet, Take 1 tablet by mouth Daily as needed, Disp: , Rfl: ipratropium-albuterol (Duo-Neb) 0.5-2.5 mg/3 mL nebulizer solution, USE 3 ML VIA NEBULIZER EVERY 6 HOURS, Disp: 180 mL, Rfl: 11 levothyroxine (Synthroid, Levoxyl) 75 MCG tablet, TAKE 1 TABLET BY MOUTH EVERY MORNING BEFORE FIRST MEAL OF THE DAY, Disp: 30 tablet, Rfl: 11 lisinopril-hydroCHLOROthiazide 20-12.5 MG tablet, TAKE 1 TABLET DAILY, Disp: 90 tablet, Rfl: 11 meclizine (Antivert) 25 MG tablet, Take 1 tablet (25 mg) by mouth 3 (three) times a day as needed for dizziness, Disp: 30 tablet, Rfl: 1 methotrexate 2.5 MG tablet, Take 15 mg by mouth 1 (one) time per week., Disp: , Rfl: pantoprazole (ProtoNix) 40 MG EC tablet, Take 1 tablet (40 mg) by mouth in the morning. Take before meals., Disp: 90 tablet, Rfl: 1 pregabalin (Lyrica) 150 MG capsule, Take 150 mg by mouth in the morning and 150 mg before bedtime., Disp: , Rfl: Tirzepatide 10 MG/0.5ML solution auto-injector, Inject 10 mcg under the skin every 7 (seven) days, Disp: 3 mL, Rfl: 1 tiZANidine (Zanaflex) 4 MG tablet, Take 4 mg by mouth 2 (two) times a day as needed for muscle spasms, Disp: , Rfl: topiramate 50 MG tablet, Take 1 tablet by mouth in the morning and 1 tablet before bedtime., Disp: 180 tablet, Rfl: 0 traZODone (Desyrel) 50 MG tablet, Take 1 tablet (50 mg) by mouth at bedtime, Disp: 90 tablet, Rfl: 0 ARIPiprazole (Abilify) 5 MG tablet, Take 1 tablet (5 mg) by mouth Daily, Disp: 30 tablet, Rfl: 3 nicotine (Nicoderm CQ) 21 MG/24HR patch, Place 1 patch over 24 hours on the skin 1 (one) time each day at the same time (Patient not taking: Reported on 08/15/2024), Disp: 30 patch, Rfl: 0 Allergies Acyclovir and Tuberculin tests Past Surgical History Past Surgical History: Procedure Laterality Date ADENOIDECTOMY 1965 BIOPSY 1984 cone biopsy CARDIAC CATHETERIZATION 2010 CARPAL TUNNEL RELEASE Right 04/2016 SECTION, LOW TRANSVERSE x2 1986, 1991 CHOLECYSTECTOMY COLONOSCOPY 2005 CYST REMOVAL chest/neck HYSTERECTOMY 2013 LIPOMA RESECTION 1988 removed from right arm MASTOID SURGERY Right 10/09/2019 MYRINGOPLASTY W/ FAT GRAFT Right 04/18/2020 SHOULDER SURGERY Left 2013 adhesive capsulitis TONSILLECTOMY 2019 with adenoidectomy TUBAL LIGATION 1999 rupture TUBAL LIGATION 1992 TYMPANOPLASTY TYMPANOSTOMY TUBE PLACEMENT 08/14/2014 TYMPANOSTOMY TUBE PLACEMENT Right 2017 TYMPANOSTOMY TUBE PLACEMENT Right 10/01/2020 Family History Family History Problem Relation Name Age of Onset Stroke Mother Cely Harman Heart disease Mother Cely Harman Heart failure Mother Cely Harman Stroke Father Felton Harman Cancer Mother's Sister Renetta Pelaez Objective Physical Exam Constitutional: Appearance: Normal appearance. HENT: Head: Normocephalic and atraumatic. Cardiovascular: Comments: Pedal pulses: DP and PT pulses are 2/4 Skin temp is warm to warm. Varicosities: absent Hair growth: present Pulmonary: Effort: Pulmonary effort is normal. Musculoskeletal: Right lower leg: No edema. Left lower leg: No edema. Comments: ROM: AJ and STJ ROM are normal and pain free. MUSCLE STRENGTH: Dorsiflexion, plantarflexion, inversion, eversion are 5/5 b/l. PAIN: with direct cpmpression of the lesion at R plantar lateral hallux Skin: General: Skin is warm and dry. Capillary Refill: Capillary refill takes 2 to 3 seconds. Findings: No bruising or erythema. Comments: SKIN FINDINGS: plantar lateral R hallux there is raised hyperkeratotic lesion with underlying bluish/purple discolored area, likely subdermal bleeding. The lesion measures 0.8 x 0.8 cm. With debridement of the lesion there is bleeding and pain, local anesthesia was then administered, discussed with the patient that it does have pinpoint bleeding and interruption of skin lines commonly associated with a verruca, but that there is underlying skin discoloration. Webspaces are clean and dry. Skin texture and turgor normal Neurological: Mental Status: She is alert and oriented to person, place, and time. Comments: Light touch sensation intact Assessment/Plan ICD-10-CM 1. Plantar warts B07.0 2. Pigmented skin lesion of uncertain behavior of lower extremity D48.5 3. Pain of right great toe M79.674 4. Open wound of right foot excluding one or more toes, initial encounter S91.301A Ambulatory referral to Podiatry Patient was examined and evaluated. With debridement of the lesion there was bleeding and pain, offered local anesthesia, patient accepted. The right hallux was anesthetized with 4 mL 2 percent lidocaine plain. The area was debrided discussed with the patient that it appeared to be verruca but underlying tissue was purple blue discoloration. Recommended punch biopsy. Patient agrees. Consent was reviewed and signed. Due to the appearance of the above described lesion, importance of identification was discussed and biopsy was recommended. Explain to patient in detail the purpose of the procedure and that the specimen will be sent to a dermatopathologist for further examination. Consent read with pt following along, answering questions to their satisfaction. They also understand that there may be need for further surgery and removal of tissue. The area was anesthetized with 4L of 2% Lido plain then prepped with betadine. Sterile aseptic technique used. Two separate 2mm punch biopsies were performed to the pigmented lesion, on centrally and one at the periphery. This was sent in formalin to dermatopathologist. Amerigel, gauze and coban applied. Pt given post op instructions written and orally: keep dressing clean and dry x 3 days, then remove and apply band aid and neosporin daily as needed. Rest, elevate. Minimal walking until numbness subsides. RTO 2 weeks to review results and check biopsy site. This note was created with the assistance of a speech recognition program. While intending to generate a timely document that accurately reflects the content of the visit, no guarantee can be provided that every grammatical or spelling mistake has been or will be identified or corrected. Thank you for your understanding. Nadia Palmer DPM documented in this encounter [facility] 08-15-2024 History of Present illness Narrative Images from the original note were not included. Kaylynn Talamantes is a 64 y.o. female presents with chief complaint of Follow-up, Sinus Problem, and Foot Skin Problem HPI: History of Present Illness The patient presents for evaluation of sinus issues, a toe lesion, and weight management. She has been experiencing severe allergy symptoms for over a month, which have escalated in intensity today. She reports significant sinus pain and pressure, with the onset of a severe sinus headache this morning. This headache has been recurring intermittently over the past month. She also reports frequent nose blowing and difficulty bending her head without needing to blow her nose. She has an upcoming appointment with an ENT specialist at the beginning of next month. Her current treatment regimen includes nasal saline nose spray and an albuterol inhaler. She uses a plain saline nasal spray as recommended by her ENT specialist. She is unable to take Sudafed due to an allergic reaction that induces nausea and itching. She has previously tried Melita and Claritin but discontinued their use due to adverse reactions. She has not yet tried a neti pot for sinus drainage. She has a lesion on her toe, initially suspected to be a wart, which has turned black and become increasingly painful over the past few weeks. The lesion has been present for several months but was not previously painful. She has not sought medical attention for this issue. She has been applying an [id number] wart medication with a Band-Aid for approximately 6 weeks. She has lost weight since her last visit. She was 255 pounds in March and is 235 pounds today. She has been on a higher dose of Mounjaro and took her second higher dose on Wednesday. She has lost 45 pounds since starting Mounjaro. She has arthritis and fibromyalgia. 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 He has some labs that he wants to review, and if they indicate high markers towards lupus, he plans to refer her to a lupus specialist. She reports being up every hour during the night, which is typical for her. It is not from pain attacks, which is why she went on disability as she cannot function during the day. HPI SUBJECTIVE: MEDICATIONS: Current Outpatient Medications Medication Instructions albuterol HFA 90 mcg/act inhaler USE 2 INHALATIONS EVERY 4 HOURS IF NEEDED FOR WHEEZING OR SHORTNESS OF BREATH ARIPiprazole (ABILIFY) 5 mg, Oral, Daily atorvastatin (LIPITOR) 20 mg, Oral, Daily bumetanide (BUMEX) 1 mg, Oral, Daily cholecalciferol (VITAMIN D-3) 50 mcg, Oral, Daily folic acid (FOLVITE) 1 mg, Daily HYDROcodone-acetaminophen ([place]) 5-325 MG tablet 1 tablet, Daily PRN ipratropium-albuterol (Duo-Neb) 0.5-2.5 mg/3 mL nebulizer solution USE 3 ML VIA NEBULIZER EVERY 6 HOURS levothyroxine (Synthroid, Levoxyl) 75 MCG tablet TAKE 1 TABLET BY MOUTH EVERY MORNING BEFORE FIRST MEAL OF THE DAY lisinopril-hydroCHLOROthiazide 20-12.5 MG tablet TAKE 1 TABLET DAILY meclizine (ANTIVERT) 25 mg, Oral, 3 times daily PRN methotrexate 15 mg, Weekly nicotine (Nicoderm CQ) 21 MG/24HR patch 1 patch, Transdermal, Every 24 hours pantoprazole (PROTONIX) 40 mg, Oral, Daily before breakfast pregabalin (LYRICA) 150 mg, 2 times daily Tirzepatide 10 mcg, Subcutaneous, Every 7 days tiZANidine (ZANAFLEX) 4 mg, 2 times daily PRN topiramate 50 MG tablet 1 tablet, Oral, 2 times daily traZODone (DESYREL) 50 mg, Oral, Nightly REVIEW OF SYMPTOMS: Review of Systems Constitutional: Negative for chills, fatigue and fever. HENT: Positive for congestion, postnasal drip, rhinorrhea, sinus pressure, sinus pain, sneezing and sore throat. Respiratory: Negative. Cardiovascular: Negative. Gastrointestinal: Negative. Genitourinary: Negative. Musculoskeletal: Negative. Skin: Positive for wound. Neurological: Negative. Psychiatric/Behavioral: Negative. OBJECTIVE: Visit Vitals BP 116/60 Pulse 88 Temp 98.3 F Ht 5' 2 Wt 235 lb 3.2 oz SpO2 97% BMI 43.02 kg/m Smoking Status Every Day BSA 2.16 m Physical Exam Vitals and nursing note reviewed. Constitutional: Appearance: Normal appearance. HENT: Head: Normocephalic and atraumatic. Right Ear: Tympanic membrane normal. Left Ear: Tympanic membrane normal. Nose: Congestion present. Right Sinus: Maxillary sinus tenderness present. No frontal sinus tenderness. Left Sinus: No maxillary sinus tenderness or frontal sinus tenderness. Mouth/Throat: Mouth: Mucous membranes are moist. Pharynx: No posterior oropharyngeal erythema. Cardiovascular: Rate and Rhythm: Normal rate and regular rhythm. Pulses: Dorsalis pedis pulses are 2+ on the right side and 2+ on the left side. Heart sounds: Normal heart sounds. Pulmonary: Effort: Pulmonary effort is normal. No respiratory distress. Breath sounds: Normal breath sounds. No stridor. No wheezing, rhonchi or rales. Musculoskeletal: Feet: Feet: Right foot: Skin integrity: Ulcer present. No erythema or warmth. Comments: Wound/ulcer noted to right big toe. Discoloration noted to middle of wound. See attached photo. Skin: General: Skin is warm and dry. Neurological: General: No focal deficit present. Mental Status: She is alert and oriented to person, place, and time. Psychiatric: Mood and Affect: Mood normal. Behavior: Behavior normal. ASSESSMENT AND PLAN: Assessment/Plan Problem List Items Addressed This Visit Allergic rhinitis Recommended taking Zyrtec OTC and Flonase. Chronic sinusitis Recommended taking Zyrtec OTC and Flonase. Keep follow up appointment with ENT next month. Other Visit Diagnoses Open wound of right foot excluding one or more toes, initial encounter - Primary Relevant Orders Ambulatory referral to Podiatry Dysuria Relevant Orders POCT Urinalysis dipstick (Completed) Assessment & Plan 1. Sinusitis. Symptoms have been ongoing for about a month and have worsened over the past week. Increased sinus pain and pressure, particularly on the right side. Flonase nasal spray, 1 spray in each nostril twice daily for a week, then reduce to 1 spray in each nostril thereafter. Zyrtec (cetirizine) recommended for allergy relief, to be taken at night if it causes drowsiness. Use of a neti pot suggested for sinus drainage. A follow-up with an ENT specialist is scheduled for the beginning of next month. 2. Lesion on toe. The lesion appears to be a wart but has become painful over the past couple of weeks. Discoloration noted to the middle of the lesion/wound. Painful discolored lesion on the right big toe. Referral to podiatry for further assessment and treatment recommendations. If no contact is made within a week, she should inform us. A picture of the lesion was taken and added to the chart for further evaluation. 3. Weight management. She has lost 45 pounds since starting Mounjaro. Weight decreased from 255 lbs to 235lbs since March. Currently on a higher dose of Mounjaro, with the second dose taken this past Wednesday. Continued monitoring of weight and A1c levels is recommended. Follow-up in 2 months. 4. Hypertension and diabetes management. Blood pressure and diabetes management. A1c level was 5.6 in May. Follow-up in 2 months for weight check and monitoring of hypertension and diabetes. Increase fluid intake due to signs of dehydration in the urine test. documented in this encounter [facility] 08-01-2024 History of Present illness Narrative Images from the original note were not included. Kaylynn Talamantes is a 64 y.o. female presents with chief complaint of UTI and Vaginitis/Bacterial Vaginosis HPI: History of Present Illness The patient presents for evaluation of a urinary tract infection. She initially suspected a UTI and submitted a urine sample, which confirmed the presence of an infection. Cephalexin was prescribed, which she completed. However, the symptoms recurred after 2 days. She reports vaginal irritation. She has been on cephalexin for 2 weeks, as prescribed by her dentist. She reports no abdominal pain, nausea, or vomiting.She experiences urinary urgency, dysuria, frequency, and uses bladder pads due to her diuretic medication, although they are not always effective. She does not have difficulty urinating. Chronic back pain is present, unrelated to her kidneys, and she experiences constant fatigue due to poor sleep. S She has previously found Cipro to be effective for her UTIs. HPI SUBJECTIVE: MEDICATIONS: Current Outpatient Medications Medication Instructions albuterol HFA 90 mcg/act inhaler USE 2 INHALATIONS EVERY 4 HOURS IF NEEDED FOR WHEEZING OR SHORTNESS OF BREATH ARIPiprazole (ABILIFY) 5 mg, Oral, Daily atorvastatin (LIPITOR) 20 mg, Oral, Daily bumetanide (BUMEX) 1 mg, Oral, Daily cholecalciferol (VITAMIN D-3) 50 mcg, Oral, Daily folic acid (FOLVITE) 1 mg, Daily HYDROcodone-acetaminophen ([place]) 5-325 MG tablet 1 tablet, Daily PRN ipratropium-albuterol (Duo-Neb) 0.5-2.5 mg/3 mL nebulizer solution USE 3 ML VIA NEBULIZER EVERY 6 HOURS levothyroxine (Synthroid, Levoxyl) 75 MCG tablet TAKE 1 TABLET BY MOUTH EVERY MORNING BEFORE FIRST MEAL OF THE DAY lisinopril-hydroCHLOROthiazide 20-12.5 MG tablet TAKE 1 TABLET DAILY meclizine (ANTIVERT) 25 mg, Oral, 3 times daily PRN methotrexate 15 mg, Weekly nicotine (Nicoderm CQ) 21 MG/24HR patch 1 patch, Transdermal, Every 24 hours pantoprazole (PROTONIX) 40 mg, Oral, Daily before breakfast pregabalin (LYRICA) 150 mg, 2 times daily Tirzepatide 10 mcg, Subcutaneous, Every 7 days tiZANidine (ZANAFLEX) 4 mg, 2 times daily PRN topiramate 50 MG tablet 1 tablet, Oral, 2 times daily traZODone (DESYREL) 50 mg, Oral, Nightly REVIEW OF SYMPTOMS: Review of Systems Constitutional: Negative. HENT: Negative. Respiratory: Negative. Cardiovascular: Negative. Gastrointestinal: Negative. Genitourinary: Positive for dysuria, frequency and urgency. Negative for flank pain. Musculoskeletal: Negative. Skin: Negative. Neurological: Negative. Psychiatric/Behavioral: Negative. OBJECTIVE: Visit Vitals BP 126/66 Pulse 85 Temp 98.5 F (Tympanic) Ht 5' 2 Wt 245 lb SpO2 95% BMI 44.81 kg/m Smoking Status Every Day BSA 2.2 m Physical Exam Vitals and nursing note reviewed. Constitutional: Appearance: Normal appearance. HENT: Head: Normocephalic and atraumatic. Cardiovascular: Rate and Rhythm: Normal rate and regular rhythm. Heart sounds: Normal heart sounds. Pulmonary: Effort: Pulmonary effort is normal. No respiratory distress. Breath sounds: Normal breath sounds. No stridor. No wheezing, rhonchi or rales. Abdominal: General: Bowel sounds are normal. There is no distension. Palpations: Abdomen is soft. There is no mass. Tenderness: There is no abdominal tenderness. There is no right CVA tenderness or left CVA tenderness. Hernia: No hernia is present. Skin: General: Skin is warm and dry. Neurological: General: No focal deficit present. Mental Status: She is alert and oriented to person, place, and time. Psychiatric: Mood and Affect: Mood normal. Behavior: Behavior normal. ASSESSMENT AND PLAN: Assessment/Plan Problem List Items Addressed This Visit None Visit Diagnoses Vaginal itching - Primary Relevant Medications fluconazole (Diflucan) 150 MG tablet Take 1 tablet (150 mg) by mouth See administration instructions for 1 day Take one tab now. Repeat in 7 days if symptoms persist Other Relevant Orders POCT Urinalysis dipstick (Completed) SURESWAB(R) ADVANCED VAGINITIS PLUS, TMA; Future Urine culture (clean catch); Future Urinalysis with reflex microscopic (clean catch); Future Dysuria Relevant Medications ciprofloxacin (Cipro) 500 MG tablet Take 1 tablet (500 mg) by mouth in the morning and 1 tablet (500 mg) before bedtime. Do all this for 7 days Other Relevant Orders POCT Urinalysis dipstick (Completed) SURESWAB(R) ADVANCED VAGINITIS PLUS, TMA; Future Urine culture (clean catch); Future Urinalysis with reflex microscopic (clean catch); Future Assessment & Plan 1. Urinary Tract Infection. - Persistent urinary tract infection indicated by leukocytes and blood in the urine. - Previous treatment with cephalexin was completed but symptoms recurred. - Prescription for Cipro to be taken for 7 days and Diflucan to be taken immediately and repeated after 7 days if necessary. - Results of swab and urine culture will be communicated upon receipt; alternative antibiotic will be considered if resistant to Cipro. documented in this encounter [facility] 07-31-2024 Telephone encounter Note New rx sent [facility] 07-31-2024 Miscellaneous Notes New rx sent documented in this encounter [facility] 07-31-2024 History of Present illness Narrative Received vm from pt stating she had been into office with uti symptoms, urine cult obtained and pt started on keflex, pt states this helped at first but now her uti symptoms have returned. Reviewed recent ov note. Called pt back, lm that [facility] will update Dr Mcdaniel and will call pt back with changes. She may have a yeast infection from the antibiotic. I recommend she comes in to give another urine sample and discuss symptoms documented in this encounter [facility] 07-21-2024 Evaluation note Diagnosis Onset Date Resolution Cervical spondylosis acute July 21, 2024 10:01am Chronic pain acute July 21 10:01am Fibromyalgia acute July 21 10:01am Sacroiliitis acute July 21 10:01am Arthritis of both hands acute J une 2024 2:10pm Bilateral hand pain acute August 01, 2024 2:10pm Carpal tunnel syndrome of left wrist acute August 01, 2024 2:10pm Cervical spondylosis acute August 24, 2024 9:14am Chronic pain acute August 24 025 9:14am Fibromyalgia acute August 24 9:14am Sacroiliitis acute August 24 9:14am Acute respiratory failure with hypoxemia acute August 10:57am Community acquired pneumonia acute September 28, 2024 10:57am COPD exacerbation acute September 282024 10:57am Demand ischemia of myocardium acute September 28, 2024 10:57am History of parotidectomy acute September 28, 2024 10:57am Hypertension acute September 28 10:57am Morbid obesity acute September 28, 2024 10:57am Nicotine dependence acute September 28, 2024 10:57am Severe sepsis acute September 28, 2024 10:57am [facility] Work Phone: 1(147) 289-575305-23-2025 Evaluation note* Diagnosis Onset Date Resolution Status Admit Date Cervical spondylosis acute July 21, 2024 10:01am Chronic pain acute July 21 10:01am Fibromyalgia acute July 21 10:01am Sacroiliitis acute July 21 10:01am Arthritis of both hands acute J [facility] 2024 2:10pm Bilateral hand pain acute August 01, 2024 2:10pm Carpal tunnel syndrome of le ft wrist acute August 01, 2024 2 :10pm Cervical spondylosis acute August 24, 2024 9:14am Chronic pain acute August 24 9:14am Fibromyalgia acute August 24 9:14am Sacroiliitis acute August 24 9:14am Acute hypokalemia acute September 282024 10:57am Acute hyponatremia acute August 312024 10:57am Acute hypoxic respiratory failure ac [place] September 28, 2024 10:57am Acute respiratory failure wi th hypoxemia acute September 28, 2024 10:57am Bilateral hand pain acute Sarah 31st, 2025 10:57am Cervical spondylosis acute September 28, 2024 10:57am Chronic pain acute September 28 10:57am Community acquired pneumonia acute September 28, 2024 10:57am Conjunctivitis acute September 28, 2024 10:57am COPD exacerbation acute September 282024 10:57am COPD with acute exacerbation acute September 28, 2024 10:57am Demand ischemia of myocardium acute September 28, 2024 10:57am Elevated lactic acid level acute September 28, 2024 10:57am Fibromyalgia acute September 28 10:57am History of parotidectomy acute September 28, 2024 10:57am Hypertension acute September 28 10:57am Hypoxia acute September 28 10:57am Impaired mobility and activi ties of daily living acute September 28, 2024 10:57am Left shoulder pain acute August 312024 10:57am Morbid obesity acute September 28, 2024 10:57am Nicotine dependence acute September 28, 2024 10:57am Non-ST elevation CT (NSTEMI) acute September 28, 2024 10:57am Pneumonia acute September 28 10:57am Severe sepsis acute September 28, 2024 10:57am Zoster conjunctivitis acute Aug 10:57am [facility] Work Phone: 1([phone]) 899-132905-19-2025 History of Present illness Narrative* Dominik Mcdaniel MD - 07/17/2024 4:40 PM EDT Images from the original note were not included. Kaylynn Talamantes is a 64 y.o. female presents with chief complaint of Follow-up HPI: HPI History of Present Illness The patient presents for evaluation of rheumatoid arthritis, tooth infection, sleep disturbance, and smoking cessation. She reports experiencing fatigue, which she attributes to a busy day. Prednisone was previously prescribed by Dr. Govea but was discontinued due to lack of efficacy. Her treatment regimen has been adjusted to address potential rheumatoid arthritis, with the understanding that if these medicationsprove ineffective, lupus will be considered as a differential diagnosis. She is currently awaiting notification from [email or web address] regarding her medication availability. She underwent both urine and blood tests today. She continues to experience panic attacks at night, which are not alleviated by trazodone. She alsoreports pain in her thigh. She has abstained from smoking for the past 2 days and currently has approximately three-quarters of a pack of cigarettes at home. She has previously attempted to quit smoking using Chantix but foundit ineffective. She reports an increase in the size of her tooth infection, despite completing a 2-week course of cephalexin. She had a dental consultation on 07/05/2024, during which the infected tooth was not extracted due to the ongoing infection. She is scheduled for another dental appointment on 07/20/2024 for potential tooth extraction. She maintains regular dental check-ups and has consulted with three different dentists over the past 6 years. She has a history of severe carpal tunnel syndrome in one hand, which was surgically treated, but she did not experience the typical night pain associated with carpal tunnel syndrome. She has an upcoming appointment with an clinical support specialist on 07/31/2024 for reevaluation of her condition, as she wishes to avoid unnecessary surgery. PAST SURGICAL HISTORY: Surgical treatment for severe carpal tunnel syndrome in one hand. SOCIAL HISTORY The patient admits to smoking but has not bought any cigarettes in 2 days and has about three-quarters of a pack left at home. SUBJECTIVE: MEDICATIONS: Current Outpatient Medications Medication Instructions albuterol HFA 90 mcg/act inhaler USE 2 INHALATIONS EVERY 4 HOURS IF NEEDED FOR WHEEZING OR SHORTNESS OF BREATH ARIPiprazole (ABILIFY) 5 mg, Oral, Daily atorvastatin (LIPITOR) 20 mg, Oral, Daily bumetanide (BUMEX) 1 mg, Oral, Daily cholecalciferol (VITAMIN D-3) 50 mcg, Oral, Daily folic acid (FOLVITE) 1 mg, Daily HYDROcodone-acetaminophen ([place]) 5-325 MG tablet 1 tablet, Daily PRN ipratropium-albuterol (Duo-Neb) 0.5-2.5 mg/3 mL nebulizer solution USE 3 ML VIA NEBULIZER EVERY 6 HOURS levothyroxine (Synthroid, Levoxyl) 75 MCG tablet TAKE 1 TABLET BY MOUTH EVERY MORNING BEFORE FIRST MEAL OF THE DAY lisinopril-hydroCHLOROthiazide 20-12.5 MG tablet TAKE 1 TABLET DAILY meclizine (ANTIVERT) 25 mg, Oral, 3 times daily PRN methotrexate 15 mg, Weekly Mounjaro 7.5 mg, Subcutaneous, Every 7 days pantoprazole (PROTONIX) 40 mg, Oral, Daily before breakfast predniSONE (Deltasone) 5 MG tablet 3 tablets, Daily pregabalin (LYRICA) 150 mg, 2 times daily tiZANidine (ZANAFLEX) 4 mg, 2 times daily PRN topiramate 50 MG tablet 1 tablet, Oral, 2 times daily traZODone (DESYREL) 50 mg, Oral, Nightly ALLERGIES: Allergies Allergen Reactions Acyclovir Unknown Horrible headaches, cannot hear Horrible headaches, cannot hear Tuberculin Tests Unknown SURGICAL HISTORY: Past Surgical History: Procedure Laterality Date ADENOIDECTOMY 1965 BIOPSY 1984 cone biopsy CARDIAC CATHETERIZATION 2010 CARPAL TUNNEL RELEASE Right 04/2016 SECTION, LOW TRANSVERSE x2 1985, 1991 CHOLECYSTECTOMY COLONOSCOPY 2005 CYST REMOVAL chest/neck HYSTERECTOMY 2013 LIPOMA RESECTION 1988 removed from right arm MASTOID SURGERY Right 10/09/2019 MYRINGOPLASTY W/ FAT GRAFT Right 04/18/2020 SHOULDER SURGERY Left 2013 adhesive capsulitis TONSILLECTOMY 2019 with adenoidectomy TUBAL LIGATION 1998 rupture TUBAL LIGATION 1991 TYMPANOPLASTY TYMPANOSTOMY TUBE PLACEMENT 08/14/2014 TYMPANOSTOMY TUBE PLACEMENT Right 2017 TYMPANOSTOMY TUBE PLACEMENT Right 10/01/2020 FAMILY HISTORY: Family History Problem Relation Name Age of Onset Stroke Mother Cely Harman Heart disease Mother Cely Harman Heart failure Mother Cely Harman Stroke Father Felton Harman Cancer Mother's Sister Renetta Pelaez SOCIAL HISTORY: Social History Tobacco Use Smoking status: Every Day Current packs/day: 1.00 Average packs/day: 1 pack/day for 40.0 years (40.0 ttl pk-yrs) Types: Cigarettes Smokeless tobacco: Never Substance Use Topics Alcohol use: Not Currently Comment: No alcohol since 2013 Drug use: Never Depression: Not at risk (08/05/2022) PHQ-2 PHQ-2 Score: 0 REVIEW OF SYMPTOMS: Review of Systems Respiratory: Negative. Cardiovascular: Negative. OBJECTIVE: Visit Vitals BP 126/74 (BP Location: Right arm, Patient Position: Sitting, BP Cuff Size: Large adult) Pulse 91 Resp 18 Ht 5' 2 Wt 247 lb SpO2 96% BMI 45.18 kg/m Smoking Status Every Day BSA 2.21 m Physical Exam Constitutional: Appearance: Normal appearance. She is normal weight. HENT: Head: Normocephalic and atraumatic. Nose: Nose normal. Mouth/Throat: Mouth: Mucous membranes are moist. Eyes: Pupils: Pupils are equal, round, and reactive to light. Cardiovascular: Rate and Rhythm: Normal rate and regular rhythm. Heart sounds: No murmur heard. Pulmonary: Effort: Pulmonary effort is normal. Breath sounds: Normal breath sounds. No wheezing or rhonchi. Musculoskeletal: General: No swelling. Cervical back: Normal range of motion and neck supple. Right lower leg: No edema. Left lower leg: No edema. Lymphadenopathy: Cervical: Cervical adenopathy present. Skin: General: Skin is warm and dry. Findings: No rash. Neurological: Mental Status: She is alert and oriented to person, place, and time. Sensory: No sensory deficit. Gait: Gait normal. Psychiatric: Mood and Affect: Mood normal. Thought Content: Thought content normal. Judgment: Judgment normal. ASSESSMENT AND PLAN: Assessment/Plan Problem List Items Addressed This Visit Bipolar disorder, current episode depressed, moderate (CMS/HCC) Acquired hypothyroidism (CMS/HCC) Tobacco abuse Relevant Medications nicotine (Nicoderm CQ) 21 MG/24HR patch Other Visit Diagnoses Arthralgia, unspecified joint - Primary LAD (lymphadenopathy) of left cervical region Assessment & Plan 1. Rheumatoid arthritis. - Previous prednisone treatment was discontinued due to ineffectiveness. - Currently being treated for rheumatoid arthritis; lupus will be considered if medications do not work. - Labs were drawn today, including urine and blood work. - Continue prescribed medications from the press operator carbon blocks; follow-up in one month to assess treatment effectiveness. 2. Tooth infection. - Completed a 14-day course of cephalexin 500 mg four times a day for a tooth infection. - Tooth extraction scheduled for due to persistent infection. - Significant inflammation remains. - Follow-up in one month to ensure infection resolution. 3. Sleep disturbance. - Started on trazodone for sleep, providing only 1-2 hours of sleep; panic attacks persist. - Monitor trazodone effectiveness. - Further evaluation if symptoms persist. 4. Smoking cessation. - Has not bought cigarettes for 2 days; has about three-quarters of a pack left at home. - Prescription for a nicotine patch will be provided to help reduce cravings. - Encouraged to enroll in [facility] free quit program for additional support. Follow-up The patient will follow up in 1 month. documented in this encounterMissouri Southern [id number] Telephone encounter Note* Telephone Encounter - Judie Sal - 07/12/2024 1:41 PM EDT Hi, this is Krista Talamantes, [id number] called my insurance company to see if I got a prescription for a lift chair from Dr Kelley. If they would cover it, they said they need to know what the C as in CAT P as in [place] T. As in Luis code is that you would bill under and As soon as I got that, I can call themback and they can let me know if that is a benefit that is available to me through my insurance, sothat way I can ask the drDot for a prescription for it. Thank you. [facility] He[id number] Miscellaneous Notes* Telephone Encounter - Judie Sal - 07/12/2024 1:41 PM EDT Hi, this is Krista Talamantes, [id number] called my insurance company to see if I got a prescription for a lift chair from Dr Kelley. If they would cover it, they said they need to know what the C as in CAT P as in [place] T. As in Luis code is that you would bill under and As soon as I got that, I can call themback and they can let me know if that is a benefit that is available to me through my insurance, sothat way I can ask the drDot for a prescription for it. Thank you. documented in this encounterMissouri Southern [id number] Telephone encounter Note* Telephone Encounter - Hieu Wilson - 07/10/2024 1:28 PM EDT FMLA forms were scanned in - pt ask them to be faxed to [phone] Aslo asked they get sent as soon as possible, sha Chaidez [phone] [facility] [id number] Miscellaneous Notes* Telephone Encounter - Hieu Wilson - 07/10/2024 1:28 PM EDT FMLA forms were scanned in - pt ask them to be faxed to [phone] Aslo asked they get sent as soon as possible, sha Chaidez [phone] documented in this encounterMissouri Southern He[id number] Telephone encounter Note* Telephone Encounter - Judie Sal - 07/04/2024 10:00 AM EDT 20% CO PAY WITH UNLIMITED VISITS AFTER DEDUCTIBLE IS MET DEDUCTIBLE IS 3300 AND 3300 IS MET OUT OF POCKET IS 5100 AND 4605.96 IS MET CHECKED ON AVAILITY Lmom to c/b to schedule, also inform that Lisa Alvarez will be leaving September 26. [facility] He[id number] Miscellaneous Notes* Telephone Encounter - Judie Sal - 07/04/2024 10:00 AM EDT 20% CO PAY WITH UNLIMITED VISITS AFTER DEDUCTIBLE IS MET DEDUCTIBLE IS 3300 AND 3300 IS MET OUT OF POCKET IS 5100 AND 4605.96 IS MET CHECKED ON AVAILITY Lmom to c/b to schedule, also inform that Lisa Alvraez will be leaving September 26. documented in this encounterMissouri Southern He[id number] History of Present illness Narrative* Dominik Mcdaniel MD - 07/04/2024 9:20 AM EDT Images from the original note were not included. Kaylynn Talamantes is a 64 y.o. female presents with chief complaint of Vomiting HPI: HPI Pt with increasing body pain, carpal tunnel pain shoulder and thigh pain . Esr 04/25 6 saw rheumatology with esr of 59 Start on corticosteroids yesterday . No change in pain today Pain limits her sleep and ability to work, unable to focus due to pain She is request disability for 4 month to alow for further eval and treatment of condition History of Present Illness SUBJECTIVE: MEDICATIONS: Current Outpatient Medications Medication Instructions albuterol HFA 90 mcg/act inhaler USE 2 INHALATIONS EVERY 4 HOURS IF NEEDED FOR WHEEZING OR SHORTNESS OF BREATH ARIPiprazole (ABILIFY) 5 mg, Oral, Daily atorvastatin (LIPITOR) 20 mg, Oral, Daily bumetanide (BUMEX) 1 mg, Oral, Daily cholecalciferol (VITAMIN D-3) 50 mcg, Oral, Daily HYDROcodone-acetaminophen ([place]) 5-325 MG tablet 1 tablet, Daily PRN ipratropium-albuterol (Duo-Neb) 0.5-2.5 mg/3 mL nebulizer solution USE 3 ML VIA NEBULIZER EVERY 6 HOURS levothyroxine (Synthroid, Levoxyl) 75 MCG tablet TAKE 1 TABLET BY MOUTH EVERY MORNING BEFORE FIRST MEAL OF THE DAY lisinopril-hydroCHLOROthiazide 20-12.5 MG tablet TAKE 1 TABLET DAILY meclizine (ANTIVERT) 25 mg, Oral, 3 times daily PRN Mounjaro 5 mg, Subcutaneous, Weekly Mounjaro 7.5 mg, Subcutaneous, Every 7 days pantoprazole (PROTONIX) 40 mg, Oral, Daily before breakfast PARoxetine (PAXIL) 20 mg, Oral, Every morning predniSONE (Deltasone) 5 MG tablet 3 tablets, Daily pregabalin (LYRICA) 150 mg, 2 times daily tiZANidine (ZANAFLEX) 4 mg, 2 times daily PRN topiramate 50 MG tablet 1 tablet, Oral, 2 times daily ALLERGIES: Allergies Allergen Reactions Acyclovir Unknown Horrible headaches, cannot hear Horrible headaches, cannot hear Tuberculin Tests Unknown SURGICAL HISTORY: Past Surgical History: Procedure Laterality Date ADENOIDECTOMY 1965 BIOPSY 1984 cone biopsy CARDIAC CATHETERIZATION 2010 CARPAL TUNNEL RELEASE Right 04/2016 SECTION, LOW TRANSVERSE x2 1986, 1991 CHOLECYSTECTOMY COLONOSCOPY 2005 CYST REMOVAL chest/neck HYSTERECTOMY 2013 LIPOMA RESECTION 1988 removed from right arm MASTOID SURGERY Right 10/09/2019 MYRINGOPLASTY W/ FAT GRAFT Right 04/18/2020 SHOULDER SURGERY Left 2013 adhesive capsulitis TONSILLECTOMY 2019 with adenoidectomy TUBAL LIGATION 1998 rupture TUBAL LIGATION 1992 TYMPANOPLASTY TYMPANOSTOMY TUBE PLACEMENT 08/14/2014 TYMPANOSTOMY TUBE PLACEMENT Right 2017 TYMPANOSTOMY TUBE PLACEMENT Right 10/01/2020 FAMILY HISTORY: Family History Problem Relation Name Age of Onset Stroke Mother Cely Harman Heart disease Mother Cely Harman Heart failure Mother Cely Harman Stroke Father Felton Harman Cancer Mother's Sister Renetta Pelaez SOCIAL HISTORY: Social History Tobacco Use Smoking status: Every Day Current packs/day: 1.00 Average packs/day: 1 pack/day for 40.0 years (40.0 ttl pk-yrs) Types: Cigarettes Smokeless tobacco: Never Substance Use Topics Alcohol use: Not Currently Comment: No alcohol since 2013 Drug use: Never Depression: Not at risk (08/05/2022) PHQ-2 PHQ-2 Score: 0 REVIEW OF SYMPTOMS: Review of Systems Respiratory: Negative. Cardiovascular: Negative. OBJECTIVE: Visit Vitals BP 124/66 (BP Location: Right arm, Patient Position: Sitting, BP Cuff Size: Large adult) Pulse 82 Resp 18 Ht 5' 2 Wt 246 lb SpO2 95% BMI 44.99 kg/m Smoking Status Every Day BSA 2.21 m Physical Exam Constitutional: Appearance: Normal appearance. She is normal weight. Cardiovascular: Rate and Rhythm: Normal rate and regular rhythm. Pulmonary: Effort: Pulmonary effort is normal. Breath sounds: Normal breath sounds. No rhonchi. Musculoskeletal: Cervical back: Normal range of motion and neck supple. Comments: Diffuse ms discomfort Skin: General: Skin is warm and dry. Neurological: General: No focal deficit present. Mental Status: She is alert and oriented to person, place, and time. Mental status is at baseline. Psychiatric: Mood and Affect: Mood normal. Behavior: Behavior normal. Thought Content: Thought content normal. Judgment: Judgment normal. ASSESSMENT AND PLAN: Assessment/Plan Problem List Items Addressed This Visit Fibromyalgia Other Visit Diagnoses Nausea and vomiting, unspecified vomiting type - Primary Primary insomnia Relevant Medications traZODone (Desyrel) 50 MG tablet Bilateral carpal tunnel syndrome Erythrocytosis Cont with care per hematology and rheumatology , form completed see scanned image Rx for desyrel to assist with sleep Advised to take prednisone with food to avoid nausea. vomitting documented in this encounterMissouri Southern [id number] Telephone encounter Note* Telephone Encounter - Dominik Mcdaniel MD - 07/03/2024 3:45 PM EDT Approvals with refills [facility] [id number] Miscellaneous Notes* Telephone Encounter - Dominik Mcdaniel MD - 07/03/2024 3:45 PM EDT Approvals with refills documented in this encounterMissouri Southern [id number] Evaluation note* Diagnosis Onset Date Resolution Status Admit Date Chronic pain acute June 29 8:46am Fibromyalgia acute June 29 8:46am Neck pain acute June 29, 2024 8:46am Primary osteoarthritis of le ft knee acute June 29, 2024 8: 46am Primary osteoarthritis of ri ght knee acute June 29, 2024 8: 46am Sacroiliitis acute June 29 8:46am Erythrocytosis acute June 29, 025 9:30am Cervical spondylosis acute July 21, 2024 10:01am Chronic pain acute July 21 10:01am Fibromyalgia acute July 21 10:01am Sacroiliitis acute July 21 10:01am Arthritis of both hands acute 2024 2:10pm Bilateral hand pain acute August 01, 2024 2:10pm Carpal tunnel syndrome of le ft wrist acute August 01, 2024 2 :10pm Cervical spondylosis acute August 24, 2024 9:14am Chronic pain acute August 24, 025 9:14am Fibromyalgia acute August 24 025 9:14am Sacroiliitis acute August 24 025 9:14am [facility] Work Phone: [phone]) 906-968105-01-[address] [facility] [place] [address] Cancer Center Note Signed Patient: Kaylynn Talamantes MR#: [id number] : 1960 Acct:[id number] Age/Sex: 64 / F Type: REG AMB Date of Service: 06/29/24 Copies to: Dominik Mcdaniel MD~ Assessment & Plan A/P (1) Erythrocytosis: Plan Unclear etiology of the erythrocytosis (primary polycythemia vera versus secondary to sleep apnea or any other abnormalities of liver or kidney disease or tumors. She smokes less than a pack a day for 50 years however her pulse ox 98% on room air today. I obtained the following labs including erythropoietin level, reticulocyte count, iron studies, B12, folate, JAK2 with reflex panel, CBC with differential and CMP. Also I referred her to sleep medicine to obtain sleep test. She stated that shehad a sleep test before about 3 years ago and about a year or 2 ago and the lastone was inconclusive but she had normal CBC then. Now there is a reason to repeat his as he is polycythemic now for the first time. 06/29/24: Patient is here for her polycythemia and lab results and to see if she needs phlebotomy. Her labs on 05/19/2024 revealed hematocrit was 44.2 with normal RBC of 4.62 million and normal WBC with platelet count was 111. MCV was normal at 95.6. CMP was within normal range. Erythropoietin level was normal at 12.2. Iron wasnormal at 117 TIBC normal 351 iron saturation was normal 33%. Ferritinwas normal 114.7. LFTs unremarkable. B12 low normal 213 and folate is normal 8.2. JAK2 with reflex panel were all negative for V617F, exon 12-13, calretinin and MPL mutations. And repeated labs on 06/27/2024 revealed hematocrit 42.3 normal with normal WBC 7.4 and normal platelet count this time 165. Her RBC is normal still 4.46 million. Patient did not require any phlebotomies. PLAN: I still recommend doing sleep test again to see if she has sleep apnea which migh explain her intermittent secondary polycythemia or erythrocytosis. Follow CBCD every 4 months with phlebotomy 500 ml if HCT is 50 or higher. RTC in 12 months sooner if she has new complaints. 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 Has a history of fibromyalgia, arthritis, thyroid disease, vitamin D deficiency,diabetes mellitus and chronic lower extremity edema. She stated that she had progressive arthritis affecting various parts of her body. She has experienced severe fibromyalgia characterized by widespread body aches impeding her mobilitysignificantly. She was started on Mounjaro in the fall 2023 which has been beneficial in managing her appetite. She also states that she has some sleep disturbances butthis includes related to her shoulder and backarthritis. Current medication include metformin, vitamin D, Bumex and Mounjaro as well as Lipitor albuterol, DuoNebs inhalers and levothyroxine, Lyrica, topiramate and pantoprazole. She is on [place] for arthritic pain as well. Labs on 04/24/2024 revealed negative rheumatoid factor less than 10. ARASELI was negative, TSH was 2.39 within normal range. Creatinine 0.69. Calcium 9.4. Total protein 6.9. Albumin 4.2 normal. Globulin 2.7 normal. Total bilirubin is 0.7. Alkaline phosphatase 68. AST 16 and ALT 16. WBC is 8.9 [id number] and hematocrit 50.8 which is high and higher compared with the prior studies. Last time her hematocrit was normal but on 02/04/2023 and platelet count is low 121 has been intermittently waxing and waning around that number. She stated she had to sleep test before one of them 3 years ago was negative estee year over a year and a half ago was inconclusive. At that point her hematocrit was normal at that point. Patient smokes less than a pack per day for 15 years and was never diagnosed with COPD or infection. She denied any history of thrombotic events or TIA or stroke or CT does not use any anticoagulation or aspirin. 06/29/24: Patient is here for her polycythemia and lab results and to see if she needs phlebotomy. Her labs on 05/19/2024 revealed hematocrit was 44.2 with normal RBC of 4.62 million and normal WBC with platelet count was 111. MCV was normal at 95.6. CMP was within normal range. Erythropoietin level was normal at 12.2. Iron wasnormal at 117 TIBC normal 351 iron saturation was normal 33%. Ferritinwas normal 114.7. LFTs unremarkable. B12 low normal 213 and folate is normal 8.2. JAK2 with reflex panel were all negative for V617F, exon 12-13, calretinin and MPL mutations. And repeated labs on 06/27/2024 revealed hematocrit 42.3 normal with normal WBC 7.4 and normal platelet count this time 165. Her RBC is normal still 4.46 million. Patient did not require any phlebotomies. She complains mainly of body aches, muscle pain like fibromyalgia and arthritis pain. She is seeingher press operator carbon blocks on 06/30/24. 14 point systems were reviewed and are otherwise negative. Intake Vitals/Pain Assessment 06/29/24 09:34 Height 5 ft 2.5 in Weight 111.584 kg BMI 44.2 Body Fat % 62.19 BP 138/83 Blood Pressure Location Rt brachial Position Sitting Pulse 93 Pulse Source NIBP Respiration 20 Pulse Oximetry (%) 98 Oxygen Delivery Method room air Are you having pain? Yes Pain Location generalized Pain scale (0-10) 9 Intake Visit Reasons: FOLLOW UP Allergies acyclovir Adverse Reaction (Verified 06/29/24 09:38) Headache Home Medications - Last Reconciled 06/29/24 by GONZALO Edge albuterol sulfate 90 mcg/actuation 1 inh inhalation Q6HR aripiprazole 5 mg PO DAILY atorvastatin (Lipitor) 20 mg PO DAILY bumetanide 1 mg PO DAILY cholecalciferol (vitamin D3) 50 mcg PO DAILY hydrocodone-acetaminophen 5-325 mg 1 tab PO BID PRN 30 days levothyroxine 50 mcg PO DAILY lisinopril-hydrochlorothiazide 20-12.5 mg 1 tab PO DAILY meclizine (Antivert) 25 mg PO DAILY PRN pantoprazole 20 mg PO DAILY paroxetine HCl 20 mg PO QDAY pregabalin 150 mg PO BID 30 days tirzepatide (Mounjaro) 2.5 mg subcut QWEEK tizanidine (Zanaflex) 4 mg PO BID PRN 30 days topiramate XR 50 mg PO BID Gastrointestinal Is the patient taking opioids for pain control?: Yes Bowel Protocol for Opioids Given: Yes Bowel Pattern: Regular Bowel Movement Aid(s): None Falls Fall Precaution Measures Taken: Patient in chair Nurse's Note: Patient is here for a 6 week follow up with labs for review. [facility] Medical History Medical History Erythrocytosis Lipoma of arm Right upper arm; excision of same Problem List clean-up per request of Phys. 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 EHR Cmte Depression with anxiety currently on no meds Problem List clean-up per request of Phys. EHR Cmte Arthritis Problem List clean-up per request of Phys. EHR Cmte Sinusitis hx. Problem List clean-up per request of Phys. EHR Cmte History of ear infection Problem List clean-up per request of Phys. EHR Cmte Vertigo Problem List clean-up per request of Phys. EHR Cmte GERD (gastroesophageal reflux disease) Problem List clean-up per request of Phys. EHR Cmte Hypothyroid Problem List clean-up per request of Phys. EHR Cmte Hypertension Problem List clean-up [facility] Phys[facility] Surgical History History of tonsillectomy and adenoidectomy Problem List clean-up per request of Phys. [facility] History of x 2 Problem List clean-up per request of Phys[facility] History of tubal ligation x 2; '92, '98 Problem List clean-up per request of Phys. EHR [facility] History of shoulder surgery left shoulder Problem List clean-up per request of Phys. EHR [facility] History of laparoscopic cholecystectomy Problem List clean-up per request of Phys. EHR Cmte H/O myringotomy right ear; also prior bilateral w/ tubes Problem List clean-up per request of Phys. [facility] History of hysterectomy with bilateral oophorectomy hx. large ovarian cyst Problem List clean-up per request of Phys. EHR [facility] Family History Family History Mother Stroke Rheumatoid arthritis Osteoarthritis Social History Social History Smoking status: Current every day smoker What tobacco products do you use: cigarettes Packs per day: 1 Within the past year, how often did you have a drink containing alcohol: never AUDIT-C Alcohol total score: 0 AUDIT-C Alcohol score interpretation: A score less than 3 is consistent with normal alcohol consumption. In the past 12 months, have you used illegal drugs or prescription drugs for non-medical reasons?: No Review of Systems ROS Details: All systems reviewed & no additional complaints except as documented General: Patient denied fevers, chills, rigors, weight loss or loss of appetite. Head: Patient denied any headaches or vision changes Thoracic: Patient denied any shortness of breath or cough or hemoptysis Cardiovascular patient denies any chest pain or leg edema GI: Patient denies any nausea vomiting rectal bleed diarrhea : Patient denied gross hematuria. Hematology: Patient denied any bleeding from any source. No easy bruising. Lymphatic: No enlarged LAP anywhere. Skin: Normal skin exam no rashes or suspicious lesions. Neurological patient denies any headache or dizziness or focal weakness or sensory changes. Physical Exam EXAM HEENT normocephalic atraumatic pupils are equal and round Neck supple without thyromegaly or any cervical lymphadenopathy. Chest clear to auscultation bilaterally without wheezing crackles or rhonchi Heart regular rate and rhythm S1-S2 without murmurs gallop or rub Abdomen soft nontender not distended without hepatosplenomegaly or masses clinically Extremities no edema of the lower extremities Skin without any suspicious rashes Lymphatic system no lymphadenopathy in the cervical area axillary areas or inguinal areas bilaterally Neurological exam patient is cooperative alert and oriented x3 no focal deficits. [facility] RESULTS Corrected WBC 7.4 X10E3/uL (3.8-11.6) 06/27/24 12:18 5 Hgb 14.7 g/dL (11.8-15.4) 06/27/24 12:18 06/27/24 Hct 42.3 % (34.0-46.4) 06/27/24 12:18 06/27/24 MCV 94.8 fl (80-100) 06/27/24 12:18 06/27/24 RDW 12.7 % (11.9-15.3) 06/27/24 12:18 06/27/24 Plt Count 165 x10E3/uL (150-450) 06/27/24 12:18 06/27/24 Iron 60 ug/dL (50-212) 06/27/24 12:18 06/27/24 Iron Saturation 21.9 % (20-50) 06/27/24 12:18 06/27/24 Ferritin 250.7 ng/mL (11.0-306.8) 06/27/24 12:18 Dictated By: Myriam Lebron MD DD/ [id number] Signed By: 06/29/[address] [place], [place] [id number] History of Present illness Narrative * Dominik Mcdaniel MD - 06/23/2024 8:00 AM EDT Images from the original note were not included. Kaylynn Talamantes is a 64 y.o. female presents with chief complaint of Disability Paperwork HPI: HPI History of Present Illness The patient presents for evaluation of fibromyalgia, weight management, mood disorder, lymphadenopathy, and lower extremity edema. She is currently seeking disability due to her inability to perform work functions, which she attributes to her fibromyalgia and back pain. Sleep disturbances are reported at night due to these conditions. Difficulty in holding objects, such as her phone, is noted due to sharp pains in her knuckles and elbow, which also cause neck discomfort. Prolonged sitting results in body stiffness, and back pain is experienced during short walks within her house. Lower back pain is reported when standing for extended periods. Despite undergoing physical therapy, it was found unhelpful and discontinued. Swelling in the right hand compared to the left is observed. Her quality of life has significantly diminished, leading to a loss of interest in social activities. She works part-time as a clinical operations specialist but struggles with tasks such as pushing wheelchairs or walking long hallways due to back pain. Time spent with her 8-year-old granddaughter has ceased due to physical limitations. Bruising is reported, and a referral to a tire inspector by Dr. Manzo has been made. A CBC is scheduled for 06/27/2024. Previous mood stabilizers were tolerated without adverse effects. Counseling sessions were previously attended but have since stopped, and resumption is being considered. No chest pain is reported. She has been on Mounjaro and has lost 33 pounds, although her weight fluctuates slightly. An increase in dosage is being considered. A swollen lymph node has been present for less than 2 weeks. A dental appointment is scheduled today to have her teeth pulled and for partials. Discoloration on the feet is noticed, varying in intensity. Bumex and HCTZ with lisinopril are currently taken for leg swelling. A drop attack occurred about a month ago where dizziness, turning too fast, or tripping over anything did not precede the fall to the ground. SUBJECTIVE: MEDICATIONS: Current Outpatient Medications Medication Instructions albuterol HFA 90 mcg/act inhaler USE 2 INHALATIONS EVERY 4 HOURS IF NEEDED FOR WHEEZING OR SHORTNESS OF BREATH atorvastatin (LIPITOR) 20 mg, Oral, Daily bumetanide (BUMEX) 1 mg, Oral, Daily cholecalciferol (VITAMIN D-3) 50 mcg, Oral, Daily HYDROcodone-acetaminophen ([place]) 5-325 MG tablet 1 tablet, Daily PRN ipratropium-albuterol (Duo-Neb) 0.5-2.5 mg/3 mL nebulizer solution USE 3 ML VIA NEBULIZER EVERY 6 HOURS levothyroxine (Synthroid, Levoxyl) 75 MCG tablet TAKE 1 TABLET BY MOUTH EVERY MORNING BEFORE FIRST MEAL OF THE DAY lisinopril-hydroCHLOROthiazide 20-12.5 MG tablet TAKE 1 TABLET DAILY meclizine (ANTIVERT) 25 mg, Oral, 3 times daily PRN Mounjaro 5 mg, Subcutaneous, Weekly pantoprazole (PROTONIX) 40 mg, Oral, Daily before breakfast PARoxetine (PAXIL) 20 mg, Every morning pregabalin (LYRICA) 150 mg, 2 times daily topiramate 50 MG tablet 1 tablet, Oral, 2 times daily ALLERGIES: Allergies Allergen Reactions Acyclovir Unknown Horrible headaches, cannot hear Horrible headaches, cannot hear Tuberculin Tests Unknown SURGICAL HISTORY: Past Surgical History: Procedure Laterality Date ADENOIDECTOMY 1965 BIOPSY 1984 cone biopsy CARDIAC CATHETERIZATION 2010 CARPAL TUNNEL RELEASE Right 04/2016 SECTION, LOW TRANSVERSE x2 1986, 1991 CHOLECYSTECTOMY COLONOSCOPY 2005 CYST REMOVAL chest/neck HYSTERECTOMY 2013 LIPOMA RESECTION 1988 removed from right arm MASTOID SURGERY Right 10/09/2019 MYRINGOPLASTY W/ FAT GRAFT Right 04/18/2020 SHOULDER SURGERY Left 2013 adhesive capsulitis TONSILLECTOMY 2019 with adenoidectomy TUBAL LIGATION 1999 rupture TUBAL LIGATION 1992 TYMPANOPLASTY TYMPANOSTOMY TUBE PLACEMENT 08/14/2014 TYMPANOSTOMY TUBE PLACEMENT Right 2017 TYMPANOSTOMY TUBE PLACEMENT Right 10/01/2020 FAMILY HISTORY: Family History Problem Relation Name Age of Onset Stroke Mother Cely Harman Heart disease Mother Cely Harman Heart failure Mother Cely Harman Stroke Father Felton Harman Cancer Mother's Sister Renetta Pelaez SOCIAL HISTORY: Social History Tobacco Use Smoking status: Every Day Current packs/day: 1.00 Average packs/day: 1 pack/day for 40.0 years (40.0 ttl pk-yrs) Types: Cigarettes Smokeless tobacco: Never Substance Use Topics Alcohol use: Not Currently Comment: No alcohol since 2013 Drug use: Never Depression: Not at risk (08/05/2022) PHQ-2 PHQ-2 Score: 0 REVIEW OF SYMPTOMS: Review of Systems Respiratory: Negative. Cardiovascular: Negative. OBJECTIVE: Visit Vitals BP 132/70 (BP Location: Right arm, Patient Position: Sitting, BP Cuff Size: Large adult) Pulse 97 Resp 18 Ht 5' 2 Wt 246 lb SpO2 97% BMI 44.99 kg/m Smoking Status Every Day BSA 2.21 m Physical Exam Constitutional: Appearance: Normal appearance. She is normal weight. HENT: Head: Normocephalic and atraumatic. Nose: Nose normal. Mouth/Throat: Mouth: Mucous membranes are moist. Eyes: Pupils: Pupils are equal, round, and reactive to light. Cardiovascular: Rate and Rhythm: Normal rate and regular rhythm. Heart sounds: No murmur heard. Pulmonary: Effort: Pulmonary effort is normal. Breath sounds: Normal breath sounds. No wheezing or rhonchi. Musculoskeletal: General: No swelling. Cervical back: Normal range of motion and neck supple. Right lower leg: No edema. Left lower leg: No edema. Comments: Forearms with ecchymosis Lymphadenopathy: Cervical: Cervical adenopathy present. Skin: General: Skin is warm and dry. Findings: No rash. Neurological: Mental Status: She is alert and oriented to person, place, and time. Sensory: No sensory deficit. Gait: Gait normal. Psychiatric: Mood and Affect: Mood normal. Thought Content: Thought content normal. Judgment: Judgment normal. ASSESSMENT AND PLAN: Assessment/Plan Problem List Items Addressed This Visit Bipolar disorder, current episode depressed, moderate (CMS/HCC) Relevant Medications ARIPiprazole (Abilify) 5 MG tablet Other Relevant Orders Ambulatory referral to Behavioral Health Essential hypertension (CMS/HCC) - Primary Good control Conductive hearing loss, unilateral, right ear, with unrestricted hearing on the contralateral side Mixed hyperlipidemia ([facility]) On statin Morbid (severe) obesity due to excess calories ([facility]) [place] levothyroxine Temporary low platelet count [place] cbc Tobacco abuse Type 2 diabetes mellitus, without long-term current use of insulin [place] Relevant Medications Tirzepatide (Mounjaro) 7.5 MG/0.5ML solution auto-injector Other Relevant Orders Microalbumin / creatinine urine ratio CBC and differential Comprehensive metabolic panel Hemoglobin A1c Cervical adenopathy Relevant Orders US head neck soft tissue Other Visit Diagnoses Body mass index (BMI) 45.0-49.9, adult ([facility]) Alcohol dependence, in remission Assessment & Plan 1. Fibromyalgia. - Reports significant pain and difficulty functioning at work due to fibromyalgia. With severe pain limiting her ability to work - Experiences severe pain in knuckles, elbows, and lower back, affecting daily activities. - Physical therapy has not provided improvement. - Advised to continue current pain management regimen and consider seeing a counselor for additional support. 2. Weight management. - Lost 33 pounds on Mounjaro but experiences fluctuations in weight. - Effectiveness of Mounjaro noted, with consideration to increase dosage. - Blood work to be repeated today to monitor platelet count due to slight thrombocytopenia. 3. Mood disorder. - Reports feeling defeated and has lost interest in activities. - Will be started on Abilify to be taken at bedtime to help stabilize mood and improve sleep. - Advised to resume counseling sessions with a new therapist. 4. Lymphadenopathy. - Swollen lymph node present for <2 weeks. - Ultrasound of the lymph node will be ordered, with potential biopsy depending on results. - No reported issues with jaw or teeth infections, but dental health may be a contributing factor. 5. Lower extremity edema. - Discoloration on feet likely due to blood pooling from leg swelling. - Current medications, Bumex and HCTZ with lisinopril, effectively managing swelling. - No changes to medication regimen needed at this time. 6. Thrombocytopenia. - Platelets were slightly low a couple of months ago, contributing to bruising tendency. - Repeat CBC to be conducted today to monitor platelet count. Follow-up - Follow-up in 1 month to recheck lymph node, evaluate effectiveness of Abilify, and assess response to higher dose of Mounjaro. documented in this [facility]03-29-2025 Telephone encounter Note* Telephone Encounter - Dominik Mcdaniel MD - 05/27/2024 9:30 AM EDT [id number] Miscellaneous Notes* Telephone Encounter - Dominik Mcdaniel MD - 05/27/2024 9:30 AM EDT Approvals with refills documented in this [facility]03-19-2025 Evaluation note* Diagnosis Onset Date Resolution Status Admit Date Erythrocytosis acute April 1:47pm Chronic pain acute May 25, 2024 9:49am Fibromyalgia acute May 25, 2024 9:49am Primary osteoarthritis of le ft knee acute May 25, 2024 9:49am Primary osteoarthritis of ri ght knee acute May 25, 2024 9:49am Sacroiliitis acute May 25, 2024 9:49am Chronic pain acute June 29 8:46am Fibromyalgia acute June 29 8:46am Neck pain acute June 29, 2024 8:46am Primary osteoarthritis of le ft knee acute June 29, 2024 8: 46am Primary osteoarthritis of ri ght knee acute June 29, 2024 8: 46am Sacroiliitis acute June 29 8:46am Erythrocytosis acute June 29, 2 025 9:30am Cervical spondylosis acute July 21, 2024 10:01am Chronic pain acute July 21 10:01am Fibromyalgia acute July 21 10:01am Sacroiliitis acute July 21 10:01am [facility] Work Phone: 1(910) 171-844103-19-2025 Evaluation note* Diagnosis Onset Date Resolution Status Admit Date Erythrocytosis acute April 1:47pm Chronic pain acute May 25, 2024 9:49am Fibromyalgia acute May 25, 2024 9:49am Primary osteoarthritis of le ft knee acute May 25, 2024 9:49am Primary osteoarthritis of ri ght knee acute May 25, 2024 9:49am Sacroiliitis acute May 25, 2024 9:49am Chronic pain acute June 29 8:46am Fibromyalgia acute June 29 8:46am Neck pain acute June 29, 2024 8:46am Primary osteoarthritis of le ft knee acute June 29, 2024 8: 46am Primary osteoarthritis of ri ght knee acute June 29, 2024 8: 46am Sacroiliitis acute June 29 8:46am Erythrocytosis acute June 29, 9:30am Cervical spondylosis acute July 21, 2024 10:01am Chronic pain acute July 21 10:01am Fibromyalgia acute July 21 10:01am Sacroiliitis acute July 21 10:01am Arthritis of both hands acute 2024 2:10pm Bilateral hand pain acute August 01, 2024 2:10pm Carpal tunnel syndrome of le ft wrist acute August 01, 2024 2 :10pm [facility] Work Phone: 1(529) 481-494002-28-2025 History of Present illness Narrative* Ruthy Araujo Jey, PT - 04/28/2024 9:00 AM EST Physical Therapy Physical Therapy Evaluation Visit Patient Name: Kaylynn Talamantes Today's Date: 04/28/2024 Encounter Diagnoses Name Primary? Chronic bilateral low back pain with bilateral sciatica Yes Fibromyalgia Visit number: 1 Subjective Kaylynn Talamantes 64 y.o. female presents to physical therapy w/ chief c/o central and noam low backpain with noam radicular like s/s at times Mechanism of Onset: chronic hx > 20 years, worse over the last several years, also reports pain in all jt's of body, has had blood work done waiting to hear from RA Dr also abnormal blood work. Current deficits: pain, severe loss in mobility, difficulty with all functional mobility including sit to stands, to/from supine to sit assist needed to sit EPB and bed mobility Pain: 810 seated in eval room, 10 at times Location: central and noam low back, noam LE radicular like s/s at times L > R usually. Reports ant/medial thigh pain shooting down legs. Aggravating Factors: sit to stands, to/from supine to sit, prolonged sitting, standing/walking, ADLs/self care, reports being in tears by the time she is done showering, Relieving factors: laying on L side for short periods of time, rest/position change at times, nothing really no improvement with pain management nerve ablation Imaging: No MRI in EMR Occupation: works 2 jobs mostly sitting but some standing, walking at times Extracurricular/Leisure Activities: has a dog she would like to walk but can not. Precautions: Pain in noam knees, shoulders, hips. Very Poor exercise tolerance at IE, severely limited lumbar mobility, poor response to PT in the last year due to L knee exacerbation at that time. Hxof L shoulder sx with poor outcome. Objective Back index= 65% impaired at IE Lumbar mobility: flex= mod loss, ext = mod loss severe ERP, noam rotation= severe loss. Great difficulty testing HS flexibility due to knee pain vs + passive SLR L > R. Noam Core/hip strength 3-/5 MMT pain in noam hips and low back attempting. Pt needed min assistance to go from supine to sit EOB. Treatment Interventions Education: HEP education with demonstration with handout and review, Educated on Eval Findings and POC, heat use x 10 min self care/home maintenance Manual Therapy: STM/massage, METs prn Therapeutic Exercise: per HANNAH grid, ROM, flexibility x 15 min sup demo and verbal cues for correct HANNAH technique Therapeutic Activity: Exercises to improve dynamic activities, functional tasks, functional mobility to return to prior activity level Neuromuscular re-education: TA training/lumbar stabilization principles with core/hip strengtheningas able Modalities: MHP/ESU x 12 min IFC seated end of session. Assessment/Plan Low back pain, noam LE radicular like s/s, decreased ROM/flexibility, great difficulty and pain withall functional mobility, ADLs/self care causing greatly decreased QOL. Prognosis poor due to severity of LBP, chronic nature ~20 years worsening, severe limits in mobility with pain all planes, obesity and pain and limited mobility in noam shoulders, hips and knees as well. Patient Goals Short Term Goal #1: pt will self report impairment less than or equal to 25% per back index at DC from PT Short Term Goal #2: pt will demo at least mod improved pain free lumbar mobility into flex and noam rotation for improved ease of ADLs/self care Short Term Goal #3: pt will be ind with HEP for maitnenance and able to avoid further imaging/intervention at DC from PT Pt will benefit from skilled PT to address the above impairments for 1-3x/week for 4-8 weeks pending pt needs/progress and orders at RTD I hereby deem this POC medically necessary. Please sign below. Date: documented in this encounterNOWright [facility] [id number] Telephone encounter Note* Telephone Encounter - Roxie Rodriguez NP - 04/18/2024 11:57 AM EST Labs for Rheumatoid Arthritis have been ordered. [facility] [id number] Miscellaneous Notes* Telephone Encounter - Roxie Rodriguez NP - 04/18/2024 11:57 AM EST Labs for Rheumatoid Arthritis have been ordered. * Telephone Encounter - Savannah Avina - 04/18/2024 10:40 AM EST Pt said her pain management doc suggest she contact pcp about getting labs ordered to test for rheumatoid arthritis, she's wondering if you would be able to order this for her to come do? documented in this encounterMiss[facility] [id number] Telephone encounter Note* Telephone Encounter - Savannah Avina - 04/18/2024 10:40 AM EST Pt said her pain management doc suggest she contact pcp about getting labs ordered to test for rheumatoid arthritis, she's wondering if you would be able to order this for her to come do? [facility] [id number] Evaluation note* Diagnosis Onset Date Resolution Status Admit Date Chronic pain acute April 3:22pm Primary osteoarthritis of ri ght knee acute April 13 3:22pm Chronic pain acute April 9:13am Fibromyalgia acute April 9:13am Left shoulder pain acute 2024 9:13am Primary osteoarthritis of le ft knee acute April 27 9:13am Primary osteoarthritis of ri ght knee acute April 27 9:13am Sacroiliitis acute April 9:13am Upper extremity pain acute 2024 9:13am Erythrocytosis acute April 1:47pm Chronic pain acute May 25, 2024 9:49am Fibromyalgia acute May 25, 2024 9:49am Primary osteoarthritis of le ft knee acute May 25, 2024 9:49am Primary osteoarthritis of ri ght knee acute May 25, 2024 9:49am Sacroiliitis acute May 25, 2024 9:49am Chronic pain acute June 29 8:46am Fibromyalgia acute June 29 8:46am Neck pain acute June 29, 2024 8:46am Primary osteoarthritis of le ft knee acute June 29, 2024 8: 46am Primary osteoarthritis of ri ght knee acute June 29, 2024 8: 46am Sacroiliitis acute June 29 8:46am Erythrocytosis acute June 29 9:30am [facility] Work Phone: 1(241) 420-746801-31-2025 History of Present illness Narrative* Dominik Mcdaniel MD - 03/31/2024 1:20 PM EST Kaylynn Talamantes is a 63 y.o. female presents with chief complaint of Diabetes HPI: Diabetes History of Present Illness The patient presents for evaluation of arthritis, fibromyalgia, thyroid management, vitamin D deficiency, diabetes mellitus, and edema. She reports a recent diagnosis of arthritis, which is progressively affecting various parts of her body. Additionally, she experiences severe fibromyalgia, characterized by daily widespread body aches that significantly impede her mobility. She was initiated on Mounjaro therapy in the fall of 2023, which has been beneficial in managing her appetite. Her typical daily diet consists of a banana and yogurt for breakfast, followed by a sandwich for lunch, after which she does not feel the need to eat until the following morning. She also reports no current edema in her feet. She is currently on thyroid medication and requires a refill of her vitamin D prescription. She attributes her sleep disturbances to back and shoulder pain. MEDICATIONS Current: Mounjaro, Bumex, metformin, vitamin D SUBJECTIVE: MEDICATIONS: Current Outpatient Medications Medication Instructions albuterol HFA 90 mcg/act inhaler USE 2 INHALATIONS EVERY 4 HOURS IF NEEDED FOR WHEEZING OR SHORTNESS OF BREATH atorvastatin (LIPITOR) 20 mg, Oral, Daily bumetanide (BUMEX) 1 mg, Oral, Daily cholecalciferol (VITAMIN D-3) 50 mcg, Oral, Daily HYDROcodone-acetaminophen ([place]) 5-325 MG tablet 1 tablet, Daily PRN ipratropium-albuterol (Duo-Neb) 0.5-2.5 mg/3 mL nebulizer solution USE 3 ML VIA NEBULIZER EVERY 6 HOURS levothyroxine (SYNTHROID) 75 mcg, Oral, Daily before breakfast lisinopril-hydroCHLOROthiazide 20-12.5 MG tablet TAKE 1 TABLET DAILY Mounjaro 5 mg, Subcutaneous, Weekly pantoprazole (PROTONIX) 40 mg, Oral, Daily pregabalin (Lyrica) 100 MG capsule topiramate 50 MG tablet 1 tablet, Oral, 2 times daily REVIEW OF SYMPTOMS: Review of Systems OBJECTIVE: Visit Vitals BP 122/74 (BP Location: Left arm, Patient Position: Sitting, BP Cuff Size: Large adult) Pulse 81 Resp 18 Ht 5' 2 Wt 255 lb 3.2 oz SpO2 96% BMI 46.68 kg/m Smoking Status Every Day BSA 2.25 m Physical Exam Constitutional: Appearance: Normal appearance. She is normal weight. HENT: Head: Normocephalic and atraumatic. Nose: Nose normal. Mouth/Throat: Mouth: Mucous membranes are moist. Eyes: Pupils: Pupils are equal, round, and reactive to light. Cardiovascular: Rate and Rhythm: Normal rate and regular rhythm. Heart sounds: No murmur heard. Pulmonary: Effort: Pulmonary effort is normal. Breath sounds: Normal breath sounds. No wheezing or rhonchi. Musculoskeletal: General: No swelling. Cervical back: Normal range of motion and neck supple. Right lower leg: No edema. Left lower leg: No edema. Skin: General: Skin is warm and dry. Findings: No rash. Neurological: Mental Status: She is alert and oriented to person, place, and time. Sensory: No sensory deficit. Gait: Gait normal. Psychiatric: Mood and Affect: Mood normal. Thought Content: Thought content normal. Judgment: Judgment normal. ASSESSMENT AND PLAN: Assessment/Plan Problem List Items Addressed This Visit Vitamin D deficiency Relevant Medications cholecalciferol (Vitamin D-3) 50 MCG (1999) capsule Other Visit Diagnoses Hypothyroidism, unspecified type ([facility]) - Primary Relevant Orders TSH W/REFLEX TO FT4 (Completed) Type 2 diabetes mellitus with other specified complication, without long-term current use of insulin ([facility]) Relevant Orders POCT glycosylated hemoglobin (Hb A1C) docked device (Completed) Assessment & Plan 1. Arthritis. The patient's arthritis is developing in different areas, causing significant discomfort and difficulty in daily activities. She will continue her current treatment regimen. 2. Fibromyalgia. The patient's fibromyalgia is worsening, leading to daily widespread body pain. She will continue her current treatment regimen. 3. Thyroid management. The patient's thyroid levels were slightly elevated during the last evaluation. A re-evaluation of her thyroid levels will be conducted today to ensure they are within the optimal range. She will continue her current thyroid medication. 4. Vitamin D deficiency. The patient's vitamin D levels were previously found to be deficient, which can contribute to her body aches. A prescription for vitamin D will be provided. 5. Diabetes Mellitus. The patient's A1C has improved significantly from 7.5 to 6.1. She will discontinue metformin. 6. Edema. The patient's swelling has significantly reduced, likely due to weight loss and the use of Bumex. She will continue taking Bumex as it has been effective in managing her symptoms. Follow-up The patient will follow up in 4 months. documented in this [facility]01-31-2025 Evaluation note* Diagnosis Onset Date Resolution Status Admit Date Chronic pain acute March 9:19am Fibromyalgia acute March 9:19am Left shoulder pain acute 2024 9:19am Primary osteoarthritis of le ft knee acute March 31 9:19am Primary osteoarthritis of ri ght knee acute March 31 9:19am Sacroiliitis acute March 9:19am Chronic pain acute April 3:22pm Primary osteoarthritis of ri ght knee acute April 13 3:22pm Chronic pain acute April 9:13am Fibromyalgia acute April 9:13am Left shoulder pain acute 2024 9:13am Primary osteoarthritis of le ft knee acute April 27 9:13am Primary osteoarthritis of ri ght knee acute April 27 9:13am Sacroiliitis acute April 9:13am Upper extremity pain acute 2024 9:13am Erythrocytosis acute April 1:47pm Chronic pain acute May 25, 2024 9:49am Fibromyalgia acute May 25, 2024 9:49am Primary osteoarthritis of le ft knee acute May 25, 2024 9:49am Primary osteoarthritis of ri ght knee acute May 25, 2024 9:49am Sacroiliitis acute May 25, 2024 9:49am Chronic pain acute June 29 8:46am Fibromyalgia acute June 29 8:46am Neck pain acute June 29, 2024 8:46am Primary osteoarthritis of le ft knee acute June 29, 2024 8: 46am Primary osteoarthritis of ri ght knee acute June 29, 2024 8: 46am Sacroiliitis acute June 29 8:46am [facility] Work Phone: 1([phone] 403-807001-31-2025 Evaluation note* Diagnosis Onset Date Resolution Status Admit Date Chronic pain acute March 9:19am Fibromyalgia acute March 9:19am Left shoulder pain acute 2024 9:19am Primary osteoarthritis of le ft knee acute March 31 9:19am Primary osteoarthritis of ri ght knee acute March 31 9:19am Sacroiliitis acute March 9:19am Chronic pain acute April 3:22pm Primary osteoarthritis of ri ght knee acute April 13 3:22pm Chronic pain acute April 9:13am Fibromyalgia acute April 9:13am Left shoulder pain acute 2024 9:13am Primary osteoarthritis of le ft knee acute April 27 9:13am Primary osteoarthritis of ri ght knee acute April 27 9:13am Sacroiliitis acute April 9:13am Upper extremity pain acute 2024 9:13am Erythrocytosis acute April 1:47pm Chronic pain acute May 25, 2024 9:49am Fibromyalgia acute May 25, 2024 9:49am Primary osteoarthritis of le ft knee acute May 25, 2024 9:49am Primary osteoarthritis of ri ght knee acute May 25, 2024 9:49am Sacroiliitis acute May 25, 2024 9:49am Chronic pain acute June 29 8:46am Fibromyalgia acute June 29 8:46am Neck pain acute June 29, 2024 8:46am Primary osteoarthritis of le ft knee acute June 29, 2024 8: 46am Primary osteoarthritis of ri ght knee acute June 29, 2024 8: 46am Sacroiliitis acute June 29 8:46am Erythrocytosis acute June 29 9:30am [facility] Work Phone: 1([phone]) 324-399801-03-2025 Evaluation note* Diagnosis Onset Date Resolution Status Admit Date Chronic pain acute March 03, 2024 8:44am Left shoulder pain acute 2024 8:44am Primary osteoarthritis of le ft knee acute March 03 8:44am Right knee pain acute March 032024 8:44am Thoracic spondylosis acute 2024 8:44am Chronic pain acute March 9:19am Fibromyalgia acute March 9:19am Left shoulder pain acute 2024 9:19am Primary osteoarthritis of le ft knee acute March 31 9:19am Primary osteoarthritis of ri ght knee acute March 31 9:19am Sacroiliitis acute March 9:19am Chronic pain acute April 3:22pm Primary osteoarthritis of ri ght knee acute April 13 3:22pm Chronic pain acute April 9:13am Fibromyalgia acute April 9:13am Left shoulder pain acute 2024 9:13am Primary osteoarthritis of le ft knee acute April 27 9:13am Primary osteoarthritis of ri ght knee acute April 27 9:13am Sacroiliitis acute April 9:13am Upper extremity pain acute 2024 9:13am [facility] Work Phone: 1([phone]) 671-460201-03-2025 Evaluation note* Diagnosis Onset Date Resolution Status Admit Date Chronic pain acute March 03, 2024 8:44am Left shoulder pain acute 2024 8:44am Primary osteoarthritis of le ft knee acute March 03 8:44am Right knee pain acute March 032024 8:44am Thoracic spondylosis acute 2024 8:44am Chronic pain acute March 9:19am Fibromyalgia acute March 9:19am Left shoulder pain acute 2024 9:19am Primary osteoarthritis of le ft knee acute March 31 9:19am Primary osteoarthritis of ri ght knee acute March 31 9:19am Sacroiliitis acute March 9:19am Chronic pain acute April 3:22pm Primary osteoarthritis of ri ght knee acute April 13 025 3:22pm Chronic pain acute April 9:13am Fibromyalgia acute April 9:13am Left shoulder pain acute 2024 9:13am Primary osteoarthritis of le ft knee acute April 27 9:13am Primary osteoarthritis of ri ght knee acute April 27 9:13am Sacroiliitis acute April 9:13am Upper extremity pain acute 2024 9:13am Erythrocytosis acute April 1:47pm Chronic pain acute May 25, 2024 9:49am Fibromyalgia acute May 25, 2024 9:49am Primary osteoarthritis of le ft knee acute May 25, 2024 9:49am Primary osteoarthritis of ri ght knee acute May 25, 2024 9:49am Sacroiliitis acute May 25, 2024 9:49am [facility] Work Phone: 1([phone] 524-704101-03-2025 History of Present illness Narrative* Sheldon Lal, DO - 03/03/2024 10:15 AM EST Subjective Patient ID: Kaylynn Talamantes is a 63 y.o. female who presents for Ear Problem (Tube check) HPI This patient presents for recheck of her tympanostomy tube on the right. Denies any difficulties with her ears. Does describe some difficulties with increased nasal congestion and drainage. She does have a history of allergies. She has used steroid nasal spray in the past. Review of Systems Patient denies any difficulties with ear pain or drainage. Has not noticed any significant change of her hearing. Does describe nasal congestion and postnasal drip. Does have a history of allergies. Currently not taking allergy medication. The rest of her review of systems is unchanged. Objective ENT Physical Exam General Examination: General overview: Normal, age-appropriate, no evidence of distress , overweight Head: Normocephalic, atraumatic Eyes: Pupils are equally round and reactive to light and accommodation, extraocular muscles are intact Ears: External ear architecture within normal limits, ear canals are patent, ears are examined under binocular microscopy. tympanostomy tube on the right is in good position and is patent. Tube on the left is in place and patent. Nose: External nose unremarkable, nares patent, septum intact, Mild deviation of the septum with moderate congestion present bilaterally. Decreased nasal ventilation is noted. Oral cavity: Mucosa moist, no evidence of ulcer, mass, or lesion Throat: Clear , mild clear posterior drainage. Neck/thyroid: Neck supple, full range of motion, no cervical lymphadenopathy, no evidence of thyromegaly Lymph nodes: No cervical lymphadenopathy Skin: Warm [...] normal affect, no evidence of distress Assessment/Plan Chronic rhinitis, patient will continue using nasal sprays. Dysfunction of the Eustachian tubes, currently stable, check tubes in 6 months Tobacco abuse, patient encouraged to quit smoking documented in this [facility]12-20-2024 Telephone encounter Note* Telephone Encounter - Dominik Mcdaniel MD - 02/18/2024 4:42 PM EST [id number] Miscellaneous Notes* Telephone Encounter - Dominik Mcdaniel MD - 02/18/2024 4:42 PM EST Approvals with refills documented in this [facility]12-02-2024 Evaluation note* Diagnosis Onset Date Resolution Status Admit Date Arthropathy of lumbosacral facet joint acute January 30 3:09pm Chronic pain acute January 3:09pm Primary osteoarthritis of le ft knee acute January 30 3:09pm Chronic pain acute January 3:48pm Primary osteoarthritis of le ft knee acute February 02 3:48pm Chronic pain acute January 3:48pm Primary osteoarthritis of le ft knee acute February 09, 2 024 3:48pm Chronic pain acute March 03, 2024 8:44am Left shoulder pain acute 2024 8:44am Primary osteoarthritis of le ft knee acute March 03 8:44am Right knee pain acute March 032024 8:44am Thoracic spondylosis acute 2024 8:44am Chronic pain acute March 9:19am Fibromyalgia acute March 9:19am Left shoulder pain acute 2024 9:19am Primary osteoarthritis of le ft knee acute March 31 9:19am Primary osteoarthritis of ri ght knee acute March 31 9:19am Sacroiliitis acute March 9:19am Chronic pain acute April 3:22pm Primary osteoarthritis of ri ght knee acute April 13, 025 3:22pm Chronic pain acute April 9:13am Fibromyalgia acute April 9:13am Left shoulder pain acute 2024 9:13am Primary osteoarthritis of le ft knee acute April 27, 2 025 9:13am Primary osteoarthritis of ri ght knee acute April 27, 2 025 9:13am Sacroiliitis acute April 9:13am [facility] Work Phone: 1(457) 913-774812-02-2024 Telephone encounter Note* Telephone Encounter - Dominik Mcdaniel MD - 01/31/2024 11:18 AM EST [id number] Miscellaneous Notes* Telephone Encounter - Dominik Mcdaniel MD - 01/31/2024 11:18 AM EST Approvals with refills [id number] Telephone encounter Note* Telephone Encounter - Dominik Mcdaniel MD - 01/22/2024 1:52 PM EST See my chart msg [id number] Miscellaneous Notes* Telephone Encounter - Dominik Mcdaniel MD - 01/22/2024 1:52 PM EST See my chart msg documented in this [facility]11-23-2024 Telephone encounter Note* Telephone Encounter - Dominik Mcdaniel MD - 01/22/2024 1:50 PM EST [facility]ills [id number] Miscellaneous Notes* Telephone Encounter - Dominik Mcdaniel MD - 01/22/2024 1:50 PM EST Approvals with refills documented in this [facility]11-21-2024 Evaluation note* Diagnosis Onset Date Resolution Status Admit Date Arthropathy of lumbosacral facet joint acute January 19, 2 024 3:55pm Chronic pain acute December 3:55pm Primary osteoarthritis of le ft knee acute January 19, 2 024 3:55pm Arthropathy of lumbosacral facet joint acute January 30 3:09pm Chronic pain acute January 3:09pm Primary osteoarthritis of le ft knee acute January 30 3:09pm Chronic pain acute January 3:48pm Primary osteoarthritis of le ft knee acute February 02 3:48pm Chronic pain acute January 3:48pm Primary osteoarthritis of le ft knee acute February 09, 2 024 3:48pm Chronic pain acute March 03, 2024 8:44am Left shoulder pain acute 2024 8:44am Primary osteoarthritis of le ft knee acute March 03 8:44am Right knee pain acute March 032024 8:44am Thoracic spondylosis acute 2024 8:44am Chronic pain acute March 9:19am Fibromyalgia acute March 9:19am Left shoulder pain acute 2024 9:19am Primary osteoarthritis of le ft knee acute March 31 9:19am Primary osteoarthritis of ri ght knee acute March 31 9:19am Sacroiliitis acute March 9:19am Chronic pain acute April 3:22pm Primary osteoarthritis of ri ght knee acute April 13 3:22pm [facility] Work Phone: 1([phone]) 596-380211-01-2024 History of Present illness Narrative* Dominik Mcdaniel MD - 12/31/2023 8:40 AM EDT Kaylynn Talamantes is a 63 y.o. female presents with chief complaint of Follow-up (Patient presents today for follow up from Wednesday. Patient is not doing any better, Stephanie seen patient and dx with pneumonia. ) HPI: HPI History of Present Illness The patient presents for evaluation of cough. She reports experiencing a cough accompanied by nasal drainage. She has been using her rescue inhaler as needed and her nebulizer every 4 hours, with two treatments at night before bed and one in themorning before work. Despite these measures, she feels her condition is not improving. She has alsobeen taking prednisone twice daily, once in the morning and once at bedtime, since Wednesday, along with a Z-Clive. SUBJECTIVE: MEDICATIONS: Current Outpatient Medications Medication Instructions albuterol HFA 90 mcg/act inhaler 2 puffs, Inhalation, Every 4 hours PRN ARIPiprazole (ABILIFY) 5 mg, Oral, Every morning atorvastatin (LIPITOR) 20 mg, Oral, Daily azithromycin (Zithromax) 250 MG tablet Take 2 today then on daily until gone bumetanide (BUMEX) 1 mg, Oral, Daily cholecalciferol (VITAMIN D-3) 2,000 Units, Daily HYDROcodone-acetaminophen ([place]) 5-325 MG tablet 1 tablet, Daily PRN levothyroxine (SYNTHROID) 75 mcg, Oral, Daily before breakfast lisinopril-hydroCHLOROthiazide 20-12.5 MG tablet TAKE 1 TABLET DAILY metFORMIN (GLUCOPHAGE) 500 mg, Oral, 2 times daily with meals Mounjaro 5 mg, Subcutaneous, Weekly Mounjaro 2.5 mg, Subcutaneous, Weekly pantoprazole (PROTONIX) 40 mg, Oral, Daily PARoxetine (PAXIL) 10 mg, Oral, Every morning predniSONE (DELTASONE) 20 mg, Oral, 2 times daily pregabalin (Lyrica) 100 MG capsule topiramate 50 MG tablet 1 tablet, Oral, 2 times daily ALLERGIES: Allergies Allergen Reactions Acyclovir Unknown Horrible headaches, cannot hear Horrible headaches, cannot hear Tuberculin Tests Unknown SURGICAL HISTORY: Past Surgical History: Procedure Laterality Date ADENOIDECTOMY 1965 BIOPSY 1984 cone biopsy CARDIAC CATHETERIZATION 2010 CARPAL TUNNEL RELEASE Right 04/2016 SECTION, LOW TRANSVERSE x2 1985, 1991 CHOLECYSTECTOMY COLONOSCOPY 2005 CYST REMOVAL chest/neck HYSTERECTOMY 2013 LIPOMA RESECTION 1988 removed from right arm MASTOID SURGERY Right 10/09/2019 MYRINGOPLASTY W/ FAT GRAFT Right 04/18/2020 SHOULDER SURGERY Left 2013 adhesive capsulitis TONSILLECTOMY 2019 with adenoidectomy TUBAL LIGATION 1998 rupture TUBAL LIGATION 1991 TYMPANOPLASTY TYMPANOSTOMY TUBE PLACEMENT 08/14/2014 TYMPANOSTOMY TUBE PLACEMENT Right 2017 TYMPANOSTOMY TUBE PLACEMENT Right 10/01/2020 FAMILY HISTORY: Family History Problem Relation Name Age of Onset Stroke Mother Cely Harman Heart disease Mother Cely Hraman Heart failure Mother Cely Harman Stroke Father Felton Harman Cancer Mother's Sister Renetta Pelaez SOCIAL HISTORY: Social History Tobacco Use Smoking status: Every Day Current packs/day: 1.00 Average packs/day: 1 pack/day for 40.0 years (40.0 ttl pk-yrs) Types: Cigarettes Smokeless tobacco: Never Substance Use Topics Alcohol use: Not Currently Comment: No alcohol since 2013 Drug use: Never Depression: Not at risk (08/05/2022) PHQ-2 PHQ-2 Score: 0 REVIEW OF SYMPTOMS: Review of Systems OBJECTIVE: Visit Vitals Smoking Status Every Day Visit Vitals BP 142/74 (BP Location: Left arm, Patient Position: Sitting, BP Cuff Size: Large adult) Pulse 85 Resp 22 Ht 5' 2 Wt 274 lb SpO2 93% BMI 50.12 kg/m Smoking Status Every Day BSA 2.33 m Physical Exam Constitutional: Appearance: Normal appearance. She is normal weight. HENT: Head: Normocephalic and atraumatic. Right Ear: Tympanic membrane and ear canal normal. Left Ear: Tympanic membrane and ear canal normal. Nose: Congestion and rhinorrhea present. Mouth/Throat: Mouth: Mucous membranes are moist. Pharynx: Oropharyngeal exudate present. Eyes: Pupils: Pupils are equal, round, and reactive to light. Cardiovascular: Rate and Rhythm: Normal rate and regular rhythm. Heart sounds: No murmur heard. Pulmonary: Effort: Pulmonary effort is normal. Breath sounds: Wheezing and rhonchi present. Musculoskeletal: General: No swelling. Cervical back: Normal range of motion and neck supple. Right lower leg: No edema. Left lower leg: No edema. Lymphadenopathy: Cervical: No cervical adenopathy. Skin: General: Skin is warm and dry. Findings: No rash. Neurological: Mental Status: She is oriented to person, place, and time. Sensory: No sensory deficit. Gait: Gait normal. Psychiatric: Mood and Affect: Mood normal. Thought Content: Thought content normal. Judgment: Judgment normal. ASSESSMENT AND PLAN: Assessment/Plan Problem List Items Addressed This Visit None Visit Diagnoses COPD exacerbation ([facility]) - Primary Relevant Medications cefuroxime (Ceftin) 500 MG tablet ipratropium-albuterol (Duo-Neb) 0.5-2.5 mg/3 mL nebulizer solution triamcinolone acetonide (Kenalog-40) injection 40 mg (Completed) Add ceftin, change to dounebs and steroid injection given. Cont with fluids if symptoms worsen advised to go to er documented in this [facility] [id number] Evaluation note* Diagnosis Onset Date Resolution Status Admit Date Arthropathy of lumbosacral facet joint acute December 23 10:14am Chronic pain acute November 10:14am Fibromyalgia acute November 10:14am Lumbar radiculopathy acute 2023 10:14am Primary osteoarthritis of le ft knee acute December 23 10:14am Sacroiliitis acute November 10:14am Thoracic spondylosis acute 2023 10:14am Arthropathy of lumbosacral facet joint acute January 19, 2 024 3:55pm Chronic pain acute December 3:55pm Primary osteoarthritis of le ft knee acute January 19, 2 024 3:55pm Arthropathy of lumbosacral facet joint acute January 30 3:09pm Chronic pain acute January 3:09pm Primary osteoarthritis of le ft knee acute January 30 3:09pm Chronic pain acute January 3:48pm Primary osteoarthritis of le ft knee acute February 02 3:48pm Chronic pain acute January 3:48pm Primary osteoarthritis of le ft knee acute February 09, 2 024 3:48pm Chronic pain acute March 03, 2024 8:44am Left shoulder pain acute 2024 8:44am Primary osteoarthritis of le ft knee acute March 03 8:44am Right knee pain acute March 032024 8:44am Thoracic spondylosis acute 2024 8:44am [facility] Work Phone: [phone] 888-372910-09-2024 Telephone encounter Note* Telephone Encounter - Hieu Wilson - 12/08/2023 3:19 PM EDT Kaylynn called asking if papers were received regarding her [place] . Ty [facility] [id number] Miscellaneous Notes* Telephone Encounter - Hieu Wilson - 12/08/2023 3:19 PM EDT Kaylynn called asking if papers were received regarding her Mon[place] . Ty documented in this encounterMiss[facility] [id number] History of Present illness Narrative* Stephanie Pelayo BUSINESS INTELLIGENCE MANAGER - 12/02/2023 4:00 PM EDT Images from the original note were not included. Kaylynn Talamantes is a 63 y.o. female presents with chief complaint of Annual Exam HPI: Patient is here for wellness and labs. SUBJECTIVE: MEDICATIONS: ALLERGIES Current Outpatient Medications Medication Instructions albuterol HFA 90 mcg/act inhaler 2 puffs, Inhalation, Every 4 hours PRN ARIPiprazole (ABILIFY) 5 mg, Oral, Every morning atorvastatin (LIPITOR) 20 mg, Oral, Daily bumetanide (BUMEX) 1 mg, Oral, Daily cholecalciferol (VITAMIN D-3) 2,000 Units, Oral, Daily HYDROcodone-acetaminophen ([place]) 5-325 MG tablet 1 tablet, Oral, Daily PRN levothyroxine (SYNTHROID, LEVOXYL) 50 mcg, Oral, Daily RT lisinopril-hydroCHLOROthiazide 20-12.5 MG tablet TAKE 1 TABLET DAILY pantoprazole (PROTONIX) 40 mg, Oral, Daily PARoxetine (PAXIL) 10 mg, Oral, Every morning pregabalin (Lyrica) 100 MG capsule topiramate 50 MG tablet 1 tablet, Oral, 2 times daily zolpidem (Ambien) 10 MG tablet Allergies Allergen Reactions Acyclovir Unknown Horrible headaches, cannot hear Horrible headaches, cannot hear Tuberculin Tests Unknown PAST MEDICAL HISTORY: SOCIAL HISTORY SURGICAL HISTORY: Past Medical History: Diagnosis Date Allergic 2008 Allergies Anxiety 1999 Asthma ([facility]) Back pain Backache 03/26/2016 Bursitis Depression ([facility]) 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[facility]) Disease of thyroid gland ([facility]) 2001 Ear problems GERD (gastroesophageal reflux disease) 2001 Headache 2001 HL (hearing loss) 2011 HTN (hypertension) ([facility]) Hyperlipidemia ([facility]) Major depressive disorder, recurrent episode, moderate ([facility]) 03/19/2023 Myalgia, unspecified site and myositis OA (osteoarthritis) Obesity 2002 Otitis media, chronic RA (rheumatoid arthritis) ([facility]) Reactive airway disease ([facility]) Renal cyst Scoliosis 1988 Shingles 06/2016 right arm/chest Sinusitis Visual impairment 1992 Social History Tobacco Use Smoking status: Every Day Current packs/day: 1.00 Average packs/day: 1 pack/day for 40.0 years (40.0 ttl pk-yrs) Types: Cigarettes Smokeless tobacco: Never Substance Use Topics Alcohol use: Not Currently Comment: No alcohol since 2013 Drug use: Never Past Surgical History: Procedure Laterality Date ADENOIDECTOMY 1965 BIOPSY 1984 cone biopsy CARDIAC CATHETERIZATION 2010 CARPAL TUNNEL RELEASE Right 04/2016 SECTION, LOW TRANSVERSE x2 1986, 1991 CHOLECYSTECTOMY COLONOSCOPY 2005 CYST REMOVAL chest/neck HYSTERECTOMY 2013 LIPOMA RESECTION 1988 removed from right arm MASTOID SURGERY Right 10/09/2019 MYRINGOPLASTY W/ FAT GRAFT Right 04/18/2020 SHOULDER SURGERY Left 2013 adhesive capsulitis TONSILLECTOMY 2019 with adenoidectomy TUBAL LIGATION 1998 rupture TUBAL LIGATION 1991 TYMPANOPLASTY TYMPANOSTOMY TUBE PLACEMENT 08/14/2014 TYMPANOSTOMY TUBE PLACEMENT Right 2017 TYMPANOSTOMY TUBE PLACEMENT Right 10/01/2020 REVIEW OF SYMPTOMS: Review of Systems Musculoskeletal: Positive for back pain and gait problem. All other systems reviewed and are negative. OBJECTIVE: Vitals: 12/02/23 1544 BP: 126/80 Pulse: 75 Temp: 97.1 F SpO2: 93% Physical Exam Vitals and nursing note reviewed. Constitutional: Appearance: Normal appearance. HENT: Head: Normocephalic and atraumatic. Right Ear: Tympanic membrane normal. Left Ear: Tympanic membrane normal. Nose: Nose normal. Mouth/Throat: Mouth: Mucous membranes are moist. Pharynx: Oropharynx is clear. Eyes: Pupils: Pupils are equal, round, and reactive to light. Cardiovascular: Rate and Rhythm: Normal rate and regular rhythm. Heart sounds: Normal heart sounds. Pulmonary: Effort: Pulmonary effort is normal. Breath sounds: Normal breath sounds. Chest: Comments: No masses Abdominal: General: Bowel sounds are normal. Palpations: Abdomen is soft. Musculoskeletal: General: Normal range of motion. Cervical back: Normal range of motion. Comments: Limited ROM and lower leg strength due to chronic back pain. 1+ pitting edema Skin: General: Skin is warm and dry. Neurological: General: No focal deficit present. Mental Status: She is alert. Psychiatric: Mood and Affect: Mood normal. ASSESSMENT AND PLAN: Assessment/Plan Diagnoses and all orders for this visit: Tobacco dependence syndrome - CT lung screening low dose; Future Continue to work on smoking habits Well adult exam Healthy diet and keep active. Annual eye and dental exam. screen labs, cancer screens and vaccines reviewed an updated as needed. Encounter for screening mammogram for malignant neoplasm of breast - Bilateral screening mammogram with tomosynthesis; Future - CBC and differential; Future Mixed hyperlipidemia (CMS/HCC) - CBC and differential; Future - Comprehensive metabolic panel; Future - Lipid panel; Future Continue to follow a low fat diet. Keep active. Add more fruits and vegetable in diet. Essential hypertension (CMS/HCC) - CBC and differential; Future - Comprehensive metabolic panel; Future - Lipid panel; Discussed current management plan and goal BP less then 130/80. Discussed diet, exercise and complications of uncontrolled blood pressure. Importance of weight management with a goal BMI less then 27 discussed. Barriers to care and medication compliance discussed. Patient voices understanding of meds. Allergic rhinitis, unspecified seasonality, unspecified trigger Continue current treatment Obstructive sleep apnea Good compliance and benefits from treatment Morbid (severe) obesity due to excess calories (CMS/HCC) - Tirzepatide (Mounjaro) 2.5 MG/0.5ML solution auto-injector; Inject 2.5 mg under the skin 1 (one) time per week - Tirzepatide (Mounjaro) 5 MG/0.5ML solution auto-injector; Inject 5 mg under the skin 1 (one) timeper week Will start GLP1 treatment. Discussed mechanism of action. Healthy eating habits and activity levels. F U in 6 weeks Vitamin D deficiency - Vitamin D 25 hydroxy; Future Hyperplastic colonic polyp, unspecified part of colon Current on treating Temporary low platelet count (CMS/HCC) stable Acquired hypothyroidism (CMS/HCC) - TSH; Future Generalized anxiety disorder (CMS/HCC) Per psych History of hysterectomy Benign disease Chronic obstructive pulmonary disease, unspecified COPD type (CMS/HCC) stable Acute pain of left knee - Handicap Placard 5 Years Degeneration of intervertebral disc of lumbar region, unspecified whether pain present - Handicap Placard 5 Years IFG (impaired fasting glucose) - Hemoglobin A1c; Future - metFORMIN (Glucophage) 500 MG tablet; Take 1 tablet (500 mg) by mouth in the morning and 1 tablet(500 mg) in the evening. Take with meals. Start metformin. Limit carbs in diet Personal history of nicotine dependence - CT lung screening low dose; Future Lower leg edema Discussed the proper use of compression stockings. On in am and off at night High risk medication use Psych meds make it hard to lose weight. Will start weight loss meds No follow-ups on file. documented in this encounterNOMS [id number] History of Present illness Narrative* Bj Moore, BUSINESS INTELLIGENCE MANAGER - 11/19/2023 8:30 AM EDTAssociated Order(s): L Inj/Asp: L knee Post-Procedure Diagnose(s): Primary osteoarthritis of left knee Images from the original note were not included. Chief Complaint Patient presents with Left Knee - Follow-up HISTORY OF PRESENT ILLNESS: Kaylynn Talamantes is an 63 y.o. @ female. Left Knee: 2 weeks s/p depo inj 11/[address] La for Pain Management, mostly for back pain. Went to [facility] ER on 10/12/23 for left leg pain and swelling. (5 weeks, 3 days ago) Pain from knee down to ankle with difficulty ambulating. No known injury. Had x-rays of LT knee and Tib/Fib at [facility] on10/12/23. Also had US venous duplex of LT LE. Given [place] for pain. Went to PCP on 10/19/23 and was referred to Ortho. LT knee pain acute onset x 5-6 weeks (early Sep). Pain started after going to PT for her back. She had difficulty walking and continued to get worse over the next few days. States injection is starting to wear off. Not using cane today. Pain anterior and lateral. Pain isn't as bad as it was. No pain meds. Using ice and heat. Using joint flex. Denies N/T, swelling. Admits cracking. Admits occas giving out. States she has a hard time sleeping due to pain. Prior Treatment: [facility] ER 10/12/23, XR [facility] LT Knee and LT Tib/Fib 10/12/23, US Venous Duplex LT LE 10/12/23 [facility], [place], PCP 10/19/23, TYL, topical pain creams, depo injection 11/05/23 ALLERGIES: Allergies Allergen Reactions Acyclovir Unknown Horrible headaches, cannot hear Horrible headaches, cannot hear Tuberculin Tests Unknown HOME MEDICATIONS: Current Outpatient Medications Medication Instructions albuterol HFA 90 mcg/act inhaler 2 puffs, Inhalation, Every 4 hours PRN ARIPiprazole (ABILIFY) 5 mg, Oral, Every morning atorvastatin (LIPITOR) 20 mg, Oral, Daily bumetanide (BUMEX) 1 mg, Oral, Daily cholecalciferol (VITAMIN D-3) 2,000 Units, Oral, Daily levothyroxine (SYNTHROID, LEVOXYL) 50 mcg, Oral, Daily RT lisinopril-hydroCHLOROthiazide 20-12.5 MG tablet TAKE 1 TABLET DAILY LORazepam (ATIVAN) 1 mg, Oral, Daily PRN pantoprazole (PROTONIX) 40 mg, Oral, Daily PARoxetine (PAXIL) 10 mg, Oral, Every morning pregabalin (Lyrica) 100 MG capsule topiramate 50 MG tablet 1 tablet, Oral, 2 times daily zolpidem (Ambien) 10 MG tablet PHYSICAL EXAM: Left Knee Exam Tenderness The patient is experiencing tenderness in the medial joint line. Range of Motion Extension: -10 Flexion: 110 Tests Varus: negative Valgus: negative Other Erythema: absent Scars: absent Sensation: normal Pulse: present Swelling: mild Vitals: There is no height or weight on file to calculate BMI. IMAGING: ASSESSMENT: ICD-10-CM 1. Primary osteoarthritis of left knee M17.12 2. Left knee pain, unspecified chronicity M25.562 L Inj/Asp: L knee on 11/19/2023 9:37 AM Indications: pain Details: anterolateral approach Medications: 40 mg methylPREDNISolone acetate 40 MG/ML Site was cleaned with isopropyl alcohol Consent was given by the patient. PLAN: I reviewed exam findings with the patient and discussed treatment options, answered questions. I discussed with the patient the option of an re- injection as last injection has already started to wear off. I advised the patient of risks associated with an injection including a reaction to medication, infection, failure to improve and possible worsening. The patient demonstrated understanding. Patient requesting injection. Skin Cleansed with alcohol swab. Utilizing aseptic technique patient given 40mg Depomedrol was injected. Patient tolerated this well. Neurovasc intact s/p injection. Post injection care instructions discussed. Follow up in 2 weeks for RCK. Questions answered in laymen terms at the bedside. The diagnosis, home exercise plan and any ongoing restrictions/ recommendations reviewed. If unable to be reached in office, I recommend evaluation at nearest Emergency Room if any symptoms worsened or new symptoms develop for requiring urgent evaluation. Bj Moore CASE PACKER-GEAR MACHINIST documented in this encounterMissouri Southern [id number] History of Present illness Narrative* Elia Kumari, DO - 11/05/2023 9:45 AM EDTAssociated Order(s): L Inj/Asp: L knee Post-Procedure Diagnose(s): Primary osteoarthritis of left knee Images from the original note were not included. HISTORY OF PRESENT ILLNESS: Kaylynn Talamantes is an 63 y.o. female. Chief Complaint: LT Knee Pain Left Knee: New Patient, Stephanie Pelayo Referral Currently goes to Dr. La for Pain Management, mostly for back pain. Went to [facility] on 10/12/23 for left leg pain and swelling. (3 weeks, 3 days ago) Pain from knee down to ankle with difficulty ambulating. No known injury. Had x-rays of LT knee and Tib/Fib at [facility] on10/12/23. Also had US venous duplex of LT LE. Given [place] for pain. Went to PCP on 10/19/23 and was referred to Ortho. LT knee pain acute onset x 3-4 weeks (early Sep). Pain started after going to PT for her back. She had difficulty walking and continued to get worse over the next few days. Ambulating with cane sinceonset. Uses walker at work. Pain over anterior and lateral knee, worse with WB. Admits spasms in knee. Admits knee giving way. Admits cracking and catching. Not sleeping well. Pain 7/10 at rest today, goes to 10/10 at the worst. Admits limping. Taking TYL without relief. Tried many topical pain relievers. Prior Treatment: [facility] 10/12/23, XR [facility] LT Knee and LT Tib/Fib 10/12/23, US Venous Duplex LT LE 10/12/23 [facility], [place], PCP 10/19/23, TYL, topical pain creams I reviewed notes from Stephanie Pelayo NP patient out reach after an emergency department visit. The patient had an assessment of acute left knee pain and chronic back pain with morbid obesity there was communication regarding the use of GLP 1 medications as an option. She also had a diagnosis of sacroiliitis There were numerous medical comorbid conditions in her history MEDICATION: Current Outpatient Medications on File Prior to Visit Medication Sig Dispense Refill LORazepam (Ativan) 1 MG tablet Take 1 mg by mouth Daily as needed zolpidem (Ambien) 10 MG tablet albuterol HFA 90 mcg/act inhaler Inhale 2 puffs every 4 (four) hours if needed for wheezing or shortness of breath 18 g 1 ARIPiprazole (Abilify) 5 MG tablet take 1 tablet by mouth every morning 90 tablet 0 atorvastatin (Lipitor) 20 MG tablet TAKE 1 TABLET DAILY 90 tablet 3 bumetanide (Bumex) 1 MG tablet Take 1 tablet (1 mg) by mouth Daily 30 tablet 1 cholecalciferol (Vitamin D-3) 50 MCG (2000 UT) capsule Take 2,000 Units by mouth in the morning. furosemide (Lasix) 20 MG tablet TAKE 1 TABLET DAILY 90 tablet 3 levothyroxine (Synthroid, Levoxyl) 50 MCG tablet Take 1 tablet (50 mcg) by mouth in the morning. 90tablet 1 lisinopril-hydroCHLOROthiazide 20-12.5 MG tablet TAKE 1 TABLET DAILY 90 tablet 11 pantoprazole (ProtoNix) 40 MG EC tablet Take 1 tablet (40 mg) by mouth Daily 90 tablet 11 PARoxetine (Paxil) 10 MG tablet TAKE 1 TABLET BY MOUTH EVERY MORNING 90 tablet 0 pregabalin (Lyrica) 100 MG capsule topiramate 50 MG tablet Take 1 tablet by mouth in the morning and 1 tablet before bedtime. 180 tablet 0 No current facility-administered medications on file prior to visit. 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[facility]) Disease of thyroid gland ([facility]) 2002 Ear problems GERD (gastroesophageal reflux disease) 2002 Headache 2001 HL (hearing loss) 2011 HTN (hypertension) ([facility]) Hyperlipidemia ([facility]) Major depressive disorder, recurrent episode, moderate (HCC) ([facility]) 03/19/2023 Myalgia, unspecified site and myositis OA (osteoarthritis) Obesity 2002 Otitis media, chronic RA (rheumatoid arthritis) ([facility]) Reactive airway disease ([facility]) Renal cyst Scoliosis 1988 Shingles 06/2016 right arm/chest Sinusitis Visual impairment 1991 ALLERGIES: Allergies Allergen Reactions Acyclovir Unknown Horrible headaches, cannot hear Horrible headaches, cannot hear Tuberculin Tests Unknown VITALS: Visit Vitals Ht 5' 2 Wt 273 lb BMI 49.93 kg/m Smoking Status Every Day BSA 2.33 m PHYSICAL EXAM: Ortho Exam LEFT KNEE ROM 15-95 Medial and lateral joint line [place] IMAGING: I reviewed x-rays from [facility] dated September of 2023 of the knee and alsoof the tibia and fibula. There is medial compartment narrowing of the knee there are no fractures identified. ASSESSMENT: ICD-10-CM 1. Primary osteoarthritis of left knee M17.12 L Inj/Asp: L knee 2. Left knee pain, unspecified chronicity M25.562 L Inj/Asp: L knee on 11/05/2023 12:42 PM Indications: pain Details: 22 G needle, anterolateral approach Medications: 40 mg methylPREDNISolone acetate 40 MG/ML Outcome: tolerated well, no immediate complications UTILIZING ASEPTIC TECHNIQUE PT GIVEN INJECTION IN LEFT KNEE, NEUROVASC INTACT S/P INJ, TOLERATED WELL Procedure, treatment alternatives, risks and benefits explained, specific risks discussed. Consent was given by the patient. PLAN: I reviewed xray findings with the patient and discussed treatment options including injections, pain management, answered questions. I discussed with the patient the option of an injection. I advisedthe patient of risks associated with an injection including a reaction to medication, infection, failure to improve and possible worsening. The patient demonstrated understanding. Patient requesting injection. Skin Cleansed with alcohol swab. Utilizing aseptic technique patient given 40mg Depomedrol was injected. Patient tolerated this well. Neurovasc intact s/p injection. Post injection care instructions discussed. If pain persist consider pain management for genicular blocks. Follow up as needed, any issues/concerns follow up sooner. Dr. Kumari obtained history and examined the patient,I am acting as scribe for Dr. Kumari/jeanna Kumari D.O. documented in this encounterMissouri Southern [id number] Telephone encounter Note* Telephone Encounter - Dominik Mcdaniel MD - 10/29/2023 11:18 AM EDT Approvals with refills [place] [id number] Miscellaneous Notes* Telephone Encounter - Dominik Mcdaniel MD - 10/29/2023 11:18 AM EDT Approvals with refills * Telephone Encounter - Savannah Avina - 10/29/2023 11:12 AM EDT [facility] so she is [facility] documented in this encounterMissouri Southern [id number] Telephone encounter Note* Telephone Encounter - Savannah Avina - 10/29/2023 11:12 AM EDT Pt [facility] rx [facility] will be late so she is asking if you will send 5 day supply to [facility]? [place] Southern [id number] Telephone encounter Note* Telephone Encounter - Dominik Mcdaniel MD - 10/25/2023 8:44 AM EDT Approvals with refills [place] [id number] Miscellaneous Notes* Telephone Encounter - Dominik Mcdaniel MD - 10/25/2023 8:44 AM EDT Approvals with refills documented in this encounterMissouri Southern [id number] History of Present illness Narrative* Stephanie Pelayo NP - 10/19/2023 2:30 PM EDT Images from the original note were not included. Kaylynn Talamantes is a 63 y.o. female presents with chief complaint of Hospital Follow-up HPI: Flowsheet Row Patient Outreach from 10/14/2023 [facility] with Alexandria Disla RN Discharge Information ED, Hospital or Residential Facility Discharge? ED Patient has been contacted within 1 week of being seen in the ED Yes Discharge Date 10/12/23 Discharge Hospital [facility] [left knee pain and swelling] Discharged To: Home Setting Engagement Medications Discharge medications reviewed and reconciled from hospital? Yes [norco for pain] Does the patient have all medications ordered at discharge? Yes Nursing Interventions No intervention needed Is the patient taking all medications as directed (includes completed medication regime)? Yes Appointments Does the patient have a primary care provider? Yes Nursing Interventions Verified appointment date/time/provider Has the patient kept scheduled appointments due by today? Yes Nursing Interventions Advised patient to keep appointment Self Management What is the home health agency? NA What Durable Medical Equipment (DME) was ordered? NA Has all Durable Medical Equipment (DME) been delivered? Yes Patient Teaching Does the patient have access to their discharge instructions? Yes Nursing Interventions Reviewed instructions with patient What is the patient's perception of their health status since discharge? Same Is the patient/caregiver able to teach back the hierarchy of who to call/visit for symptoms/problems? PCP, Specialist, Home Health nurse, Urgent Care, ED, 911 Yes Wrap Up SUBJECTIVE: MEDICATIONS: ALLERGIES Current Outpatient Medications Medication Instructions albuterol HFA 90 mcg/act inhaler 2 puffs, Inhalation, Every 4 hours PRN ARIPiprazole (ABILIFY) 5 mg, Oral, Every morning atorvastatin (LIPITOR) 20 mg, Oral, Daily baclofen (LIORESAL) 10 mg, Oral, 3 times daily cholecalciferol (VITAMIN D-3) 2,000 Units, Oral, Daily furosemide (LASIX) 20 mg, Oral, Daily HYDROcodone-acetaminophen ([place]) 5-325 MG tablet TAKE 1 TABLET BY MOUTH EVERY 6 HOURS FOR 3 DAYS NEEDED FOR PAIN levothyroxine (SYNTHROID, LEVOXYL) 50 mcg, Oral, Daily RT lisinopril-hydroCHLOROthiazide 20-12.5 MG tablet TAKE 1 TABLET DAILY LORazepam (ATIVAN) 1 mg, Oral, Daily PRN pantoprazole (PROTONIX) 40 mg, Oral, Daily, Do not crush, chew, or split. PARoxetine (PAXIL) 10 mg, Oral, Every morning pregabalin (Lyrica) 100 MG capsule topiramate 50 MG tablet 1 tablet, Oral, 2 times daily zolpidem (AMBIEN) 10 mg, Oral, Nightly PRN Allergies Allergen Reactions Acyclovir Unknown Horrible headaches, cannot hear Horrible headaches, cannot hear Tuberculin Tests Unknown PAST MEDICAL HISTORY: SOCIAL HISTORY SURGICAL HISTORY: Past Medical History: Diagnosis Date Allergic 2008 Allergies Anxiety 1999 Asthma ([facility]) Back pain Backache 03/26/2016 Bursitis Depression ([facility]) 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[facility]) Disease of thyroid gland ([facility]) 2002 Ear problems GERD (gastroesophageal reflux disease) 2001 Headache 2001 HL (hearing loss) 2011 HTN (hypertension) ([facility]) Hyperlipidemia ([facility]) Major depressive disorder, recurrent episode, moderate (HCC) [place] 03/19/2023 Myalgia, unspecified site and myositis OA (osteoarthritis) Obesity 2002 Otitis media, chronic RA (rheumatoid arthritis) ([facility]) Reactive airway disease ([facility]) Renal cyst Scoliosis 1988 Shingles 06/2016 right arm/chest Sinusitis Visual impairment 1992 Social History Tobacco Use Smoking status: Every Day Current packs/day: 1.00 Average packs/day: 1 pack/day for 40.0 years (40.0 ttl pk-yrs) Types: Cigarettes Smokeless tobacco: Never Substance Use Topics Alcohol use: Not Currently Comment: No alcohol since 2013 Drug use: Never Past Surgical History: Procedure Laterality Date ADENOIDECTOMY 1965 BIOPSY 1984 cone biopsy CARDIAC CATHETERIZATION 2010 CARPAL TUNNEL RELEASE Right 04/2016 SECTION, LOW TRANSVERSE x2 1986, 1991 CHOLECYSTECTOMY COLONOSCOPY 2005 CYST REMOVAL chest/neck HYSTERECTOMY 2013 LIPOMA RESECTION 1988 removed from right arm MASTOID SURGERY Right 10/09/2019 MYRINGOPLASTY W/ FAT GRAFT Right 04/18/2020 SHOULDER SURGERY Left 2013 adhesive capsulitis TONSILLECTOMY 2019 with adenoidectomy TUBAL LIGATION 1998 rupture TUBAL LIGATION 1992 TYMPANOPLASTY TYMPANOSTOMY TUBE PLACEMENT 08/14/2014 TYMPANOSTOMY TUBE PLACEMENT Right 2017 TYMPANOSTOMY TUBE PLACEMENT Right 10/01/2020 REVIEW OF SYMPTOMS: Review of Systems Constitutional: Negative. HENT: Negative. Eyes: Negative. Respiratory: Negative. Cardiovascular: Negative. Gastrointestinal: Negative. Genitourinary: Negative. Musculoskeletal: Positive for back pain and gait problem. Skin: Negative. Psychiatric/Behavioral: Negative. All other systems reviewed and are negative. Hematological: Negative. Endocrine: Negative. Allergic/Immunologic: Negative. OBJECTIVE: Vitals: 10/19/23 1434 BP: 126/70 Pulse: 80 Resp: 18 SpO2: 98% Physical Exam Vitals and nursing note reviewed. Constitutional: Appearance: Normal appearance. HENT: Head: Normocephalic and atraumatic. Eyes: Conjunctiva/sclera: Conjunctivae normal. Cardiovascular: Rate and Rhythm: Normal rate and regular rhythm. Heart sounds: Normal heart sounds. Pulmonary: Effort: Pulmonary effort is normal. Breath sounds: Normal breath sounds. Musculoskeletal: General: Normal range of motion. Cervical back: Normal range of motion. Comments: Left knee with negative ligament an meniscus signs. Chronic lower baclk cohen with affects her gait. Chronic lower leg edema Skin: General: Skin is warm and dry. Neurological: General: No focal deficit present. Mental Status: She is alert. Psychiatric: Mood and Affect: Mood normal. ASSESSMENT AND PLAN: Assessment/Plan Diagnoses and all orders for this visit: Acute pain of left knee Feel her pain is coming from her back but will have ortho see her Morbid (severe) obesity due to excess calories ([facility]) Given her names of all the GLP1 med as options. She will check with her insurance prior to her wellness exam Body mass index (BMI) 45.0-49.9, adult (CMS/HCC) Thrombocytopenia, unspecified (CMS/HCC) stsable Sacroiliitis, not elsewhere classified (CMS/HCC) Per pain management Arthralgia, unspecified joint - Ambulatory referral to Orthopaedic Surgery; Future Lower leg edema - bumetanide (Bumex) 1 MG tablet; Take 1 tablet (1 mg) by mouth Daily Hold lasix and try bumex until her FU appt No follow-ups on file. documented in this encounterMissouri Southern [id number] Telephone encounter Note* Telephone Encounter - Dominik Mcdaniel MD - 2023 4:00 PM EST Approvals with refills [facility] [id number] Miscellaneous Notes* Telephone Encounter - Dominik Mcdaniel MD - 2023 4:00 PM EST Approvals with refills documented in this encounterMissouri Southern [id number] NotePROCEDURE: elenipeed VCT 64, 5 mm slice axial images were acquired with coronal reconstruction through the sinuses without contrast. FINDINGS: Comparison made with prior maxofacial CT of July 28, 2019. Normal paranasal sinus development and aeration. No significant mucosal thickening or fluid collections. Mild rightward nasal septal deviation. Mild mucosal thickening obscures the right ostium. No significant paranasal fluid collections. Small cresencio bullosa left greater than right. Normal aeration of the left mastoid air cells and middle ear cavity. Post-surgical changes of the right orthodoxy bone/mastoid region, no abnormal fluic collection or significant neighboring tissue inflammation. Unremarkable major salivary glands. No cervical lymphadenopathy. Unremarkable intracranial and intra-orbital contents. IMPRESSION: 1. Post-surgical changes right mastoid region, no abnormal fluid collections or significant inflammation. 2. Mild mucosal thickening near the right ostium, unchanged. Report reported and signed by Raghavendra De La Paz on 06/26/2021 [id number] [place] [facility] SpecialistEvaluation noteNo assessment information availableMount Carmel Health System Work Phone: Evaluation note* Diagnosis Anxiety Anxiety state, unspecified documented in this encounter [facility] HealthcareEvaluation note* Diagnosis Onset Date Resolution Status Chronic pain acute Hip pain acute Low back pain acute Sacroiliitis acute Thoracic spondylosis [facility] Work Phone: Evaluation note* Diagnosis Onset Date Resolution Status Arthropathy of lumbosacral facet joint acute Chronic pain acute Primary osteoarthritis of hips, bilateral acute Sacroiliitis acute Thoracic spondylosis acute Arthropathy of lumbosacral facet joint acute Chronic pain acute Fibromyalgia acute Sacroiliitis acute Arthropathy of lumbosacral facet joint acute Chronic pain acute Fibromyalgia acute Sacroiliitis acute Thoracic spondylosis [facility] Work Phone: Evaluation note* Diagnosis Onset Date Resolution Status Arthropathy of lumbosacral facet joint acute Chronic pain acute Fibromyalgia acute Sacroiliitis acute Arthropathy of lumbosacral facet joint acute Chronic pain acute Fibromyalgia acute Sacroiliitis acute Thoracic spondylosis acute Arthropathy of lumbosacral facet joint acute Chronic pain acute Fibromyalgia acute Lumbar radiculopathy acute Sacroiliitis acute [facility] Work Phone: Evaluation note* Diagnosis Onset Date Resolution Status Arthropathy of lumbosacral facet joint acute Chronic pain acute Fibromyalgia acute Sacroiliitis acute Thoracic spondylosis acute Arthropathy of lumbosacral facet joint acute Chronic pain acute Fibromyalgia acute Lumbar radiculopathy acute Sacroiliitis acute Arthropathy of lumbosacral facet joint acute Chronic pain acute Fibromyalgia acute Lumbar radiculopathy acute Primary osteoarthritis of left knee acute Sacroiliitis acute Thoracic spondylosis acute [facility] Work Phone: Evaluation note* Diagnosis Tobacco dependence syndrome- Primary Tobacco use disorder Well adult exam Routine general medical examination at a health care facility Encounter for screening mammogram for malignant neoplasm of breast Mixed hyperlipidemia (CMS/HCC) Mixed hyperlipidemia Essential hypertension (CMS/HCC) Unspecified essential hypertension Allergic rhinitis, unspecified seasonality, unspecified trigger Obstructive sleep apnea Obstructive sleep apnea (adult) (pediatric) Morbid (severe) obesity due to excess calories (CMS/HCC) Vitamin D deficiency Hyperplastic colonic polyp, unspecified part of colon Temporary low platelet count (CMS/HCC) Acquired hypothyroidism (CMS/HCC) Unspecified hypothyroidism Generalized anxiety disorder (CMS/HCC) Generalized anxiety disorder History of hysterectomy Acquired absence of both cervix and uterus Chronic obstructive pulmonary disease, unspecified COPD type (CMS/HCC) Acute pain of left knee Degeneration of intervertebral disc of lumbar region, unspecified whether pain present IFG (impaired fasting glucose) Personal history of nicotine dependence Lower leg edema High risk medication use [facility] encounter [facility] Diagnosis Acquired hypothyroidism (CMS/HCC)- Primary Unspecified hypothyroidism [facility]* Diagnosis Type 2 diabetes mellitus with hyperosmolarity without coma, without long-term current use of insulin (CMS/HCC)- Primary Morbid (severe) obesity due to excess calories (CMS/HCC) documented in this encounter [facility]* Diagnosis Onset Date Resolution Status Arthropathy of lumbosacral facet joint acute Chronic pain acute Fibromyalgia acute Sacroiliitis acute Thoracic spondylosis acute Arthropathy of lumbosacral facet joint acute Chronic pain acute Fibromyalgia acute Lumbar radiculopathy acute Sacroiliitis acute Arthropathy of lumbosacral facet joint acute Chronic pain acute Fibromyalgia acute Lumbar radiculopathy acute Primary osteoarthritis of left knee acute Sacroiliitis acute Thoracic spondylosis acute Arthropathy of lumbosacral facet joint acute Chronic pain acute Fibromyalgia acute Lumbar radiculopathy acute Primary osteoarthritis of left knee acute Sacroiliitis acute Thoracic spondylosis acute [facility] Work Phone: Evaluation note* Diagnosis Lower leg edema documented in this encounter [facility]* Diagnosis Pneumonia of left upper lobe due to Mycoplasma pneumoniae- Primary Type 2 diabetes mellitus with other specified complication (CMS/[facility]) Hyperlipidemia, unspecified ([facility]) documented in this encounter [facility]* Diagnosis COPD exacerbation (CMS/[facility])- Primary Obstructive chronic bronchitis with exacerbation documented in this encounter [facility]* Diagnosis Onset Date Resolution Status Arthropathy of lumbosacral facet joint acute Chronic pain acute Fibromyalgia acute Lumbar radiculopathy acute Primary osteoarthritis of left knee acute Sacroiliitis acute Thoracic spondylosis acute Arthropathy of lumbosacral facet joint acute Chronic pain acute Fibromyalgia acute Lumbar radiculopathy acute Primary osteoarthritis of left knee acute Sacroiliitis acute Thoracic spondylosis acute Arthropathy of lumbosacral facet joint acute Chronic pain acute Fibromyalgia acute Lumbar radiculopathy acute Primary osteoarthritis of left knee acute Sacroiliitis acute Thoracic spondylosis acute [facility] Work Phone: Evaluation note* Diagnosis Type 2 diabetes mellitus with hyperosmolarity without coma, without long-term current use of insulin ([facility]) documented in this encounter [facility]* Diagnosis Insomnia, unspecified type- Primary [facility] in this [facility]* Diagnosis COPD exacerbation (CMS/[facility]) Obstructive chronic bronchitis with exacerbation documented in this encounter [facility]* Diagnosis Acute pain of left knee- Primary Morbid (severe) obesity due to excess calories (CMS/[facility]) Body mass index (BMI) 45.0-49.9, adult (CMS/[facility]) Thrombocytopenia, unspecified (CMS/[facility]) Thrombocytopenia, unspecified Sacroiliitis, not elsewhere classified (CMS/[facility]) Sacroiliitis, not elsewhere classified Arthralgia, unspecified joint Lower leg edema [facility] this [facility]* Diagnosis Essential hypertension ([facility]) Unspecified essential hypertension [facility] this [facility]* Diagnosis Gastroesophageal reflux disease without esophagitis Esophageal reflux documented in this [facility]* Diagnosis Primary osteoarthritis of left knee- Primary Left knee pain, unspecified chronicity documented in this [facility]* Diagnosis Primary osteoarthritis of left knee- Primary Left knee pain, unspecified chronicity documented in this [facility]* Diagnosis Lower leg edema Gastroesophageal reflux disease without esophagitis Esophageal reflux documented in this [facility]* Diagnosis Chronic rhinitis- Primary Dysfunction of both eustachian tubes Tobacco abuse Tobacco use disorder [facility]* Diagnosis [place], [place] Primary Type 2 diabetes mellitus with other specified complication, without long-term current use of insulin [place] Vitamin D deficiency documented in this [facility]* Diagnosis Arthritis- Primary Unspecified arthropathy, site unspecified documented in this [facility]* Diagnosis Erythrocytosis- Primary Polycythemia, secondary [facility] in this [facility]* Diagnosis Chronic bilateral low back pain with bilateral sciatica- Primary Fibromyalgia Unspecified myalgia and myositis documented in this [facility]* Diagnosis Acquired [place] Unspecified hypothyroidism [facility] in this [facility]* Diagnosis Essential hypertension ([facility])- Primary Unspecified essential hypertension Mixed hyperlipidemia [place] Mixed hyperlipidemia Acquired hypothyroidism [place] Unspecified hypothyroidism Temporary low platelet count [place] Conductive hearing loss, unilateral, right ear, with unrestricted hearing on the contralateral side Morbid (severe) obesity due to excess calories [place] Body mass index (BMI) 45.0-49.9, adult [place] Bipolar disorder, current episode depressed, moderate ([facility] Alcohol dependence, in remission Type 2 diabetes mellitus with other specified complication, without long-term current use of insulin Tobacco abuse Tobacco use disorder Cervical adenopathy Enlargement of lymph nodes Fibromyalgia Unspecified myalgia and myositis documented in [facility]* Diagnosis Type 2 diabetes mellitus with other specified complication, without long-term current use of insulin documented in this [facility]* Diagnosis Nausea and vomiting, unspecified vomiting type- Primary Primary insomnia Persistent disorder of initiating or maintaining sleep Bilateral carpal tunnel syndrome Carpal tunnel syndrome Fibromyalgia Unspecified myalgia and myositis Erythrocytosis Polycythemia, secondary [facility] in this [facility]* Diagnosis Arthralgia, unspecified joint- Primary Bipolar disorder, current episode depressed, moderate (CMS/HCC) Acquired hypothyroidism (CMS/HCC) Unspecified hypothyroidism LAD (lymphadenopathy) of left cervical region Tobacco abuse Tobacco use disorder [facility]* Diagnosis Essential hypertension ([facility])- Primary Unspecified essential hypertension Chronic obstructive pulmonary disease, unspecified COPD type ([facility]) documented in this [facility]* Diagnosis Type 2 diabetes mellitus with other specified complication, without long-term current use of insulin documented in this [facility]* Diagnosis Type 2 diabetes mellitus with other specified complication, without long-term current use of insulin- Primary documented in this [facility]* Diagnosis Vaginal itching- Primary Pruritus of genital organs Dysuria documented in this [facility]* Diagnosis Open wound of right foot excluding one or more toes, initial encounter- Primary Dysuria Chronic maxillary sinusitis Allergic rhinitis, unspecified seasonality, unspecified trigger documented in this [facility]* Diagnosis Plantar warts- Primary Plantar wart Pigmented skin lesion of uncertain behavior of lower extremity Pain of right great toe Open wound of right foot excluding one or more toes, initial encounter [facility] in this [facility]* Diagnosis Neck mass- Primary Swelling, mass, or lump in head and neck Cervical adenopathy Enlargement of lymph nodes Blood tests prior to treatment or procedure Pre-procedural laboratory examination documented in this [facility]* Diagnosis Primary insomnia Persistent disorder of initiating or maintaining sleep documented in this [facility]* Diagnosis Pigmented skin lesion of uncertain behavior of lower extremity- Primary Cellulitis of right toe documented in this [facility]* Diagnosis Neck mass- Primary Swelling, mass, or lump in head and neck Parotid mass Swelling, mass, or lump in head and neck Tobacco abuse Tobacco use disorder [facility] in [facility]* Diagnosis Epidermal cyst- Primary Sebaceous cyst documented in this [facility]* Diagnosis Pain of right great toe- Primary Hemangioma of skin Hemangioma of skin and subcutaneous tissue documented in this [facility]* Diagnosis Pigmented skin lesion of uncertain behavior of lower extremity Cellulitis of right toe documented in this [facility]* Diagnosis Neck mass- Primary Swelling, mass, or lump in head and neck Parotid mass Swelling, mass, or lump in head and neck Tobacco abuse Tobacco use disorder documented in this [facility]* Diagnosis Parotid mass- Primary Swelling, mass, or lump in head and neck Otorrhea of left ear Acute suppurative otitis media of left ear without spontaneous rupture of tympanic membrane, recurrence not specified documented in this encounter [facility]* Diagnosis Hospital discharge follow-up- Primary Other follow-up examination Migraine aura occurring with and without headache Fibromyalgia Unspecified myalgia and myositis Other chronic pain Chronic bilateral low back pain with bilateral sciatica Type 2 diabetes mellitus with other specified complication, without long-term current use of insulin (HCC) Essential hypertension Unspecified essential hypertension documented in this encounter [facility]* Diagnosis Hospital discharge follow-up- Primary Other follow-up examination Migraine aura occurring with and without headache Fibromyalgia Unspecified myalgia and myositis Other chronic pain Chronic bilateral low back pain with bilateral sciatica Type 2 diabetes mellitus with other specified complication, without long-term current use of insulin (HCC) Essential hypertension Unspecified essential hypertension Candidiasis- Primary documented in this encounter [facility] HealthcareHistory and physical note Author Pedro Luis Roper [facility] Note Date/Time September 28, 2024 11:5 1am [facility] [address] [place] [address] Hospitalist H&P Signed Patient: Kaylynn Talamantes MR#: [id number] : 1960 Acct:[id number] Age/Sex: 64 / F Adm Date: 5 Loc: Room: [address] [place] [address] Type: ADM IN Attending Dr: Pedro Luis Roper MD Copies to: MD Pedro Luis Morel MD~ HPI DATE OF EXAMINATION: 09/28/24 CHIEF COMPLAINT: Shortness of breath and not feeling well HISTORY OF PRESENT ILLNESS: 63-year-old female with past medical history of nicotine dependence actively smoking, asthma, recent parathyroid surgery with Dr. Lal, fibromyalgia, GERD, hypertension, hypothyroidism, depression/anxiety presented from home due to not feeling well for past 3 days. Patient states that she was doing well after the surgery and went home. But for past 3 days she has not been feeling well and very short of breath. With any minimal activity she is getting very short of breath. Today they were coming for her 's blood work and she was asking him to drop her to emergency department. In the emergency departmentshe was found to be profoundly hypoxic with 49% on room air but she does not useany oxygen at home she was also found to have leukocytosis. CT PE protocol was performed which was negative. CT abdomen and pelvis did not show any acute pathology either. She was started on broad-spectrum antibiotics and placed on high flow nasal cannula and referred to hospitalist service for further management. Review of Systems Review of Systems All other systems reviewed & are negative unless noted below or in HPI [facility] Medical History (Updated 09/28/24 @ 11:47 by Pedro Luis Roper MD) Wears hearing aid Migraine topiramate to help prevent Fibromyalgia Pain management contract agreement Herniated disc Back pain Right foot pain tumor and blood clot in right greater toe Erythrocytosis Disassociation disorder Depression with anxiety Arthritis Vertigo GERD (gastroesophageal reflux disease) Hypothyroid Hypertension Surgical History (Updated 09/28/24 @ 11:46 by Pedro Luis Roper MD) History of parotidectomy History of carpal tunnel surgery of right wrist 2018 History of tonsillectomy and adenoidectomy History of x 2 History of tubal ligation x 2; , History of shoulder surgery left shoulder arthroscopy History of laparoscopic cholecystectomy H/O myringotomy right ear; also prior bilateral w/ tubes History of hysterectomy with bilateral oophorectomy hx. large ovarian cyst Family History Mother Stroke Rheumatoid arthritis Osteoarthritis Social History Smoking Status: Current every day smoker Tobacco Type: cigarettes Substance Use Type: None Meds Medications and Allergies Allergies acyclovir Adverse Reaction (Verified 09/28/24 08:25) Headache Home Medications levothyroxine 50 mcg tablet 50 mcg PO QAM hypothyrodism 10/03/19 [History Confirmed 09/28/24] lisinopril 20 mg-hydrochlorothiazide 12.5 mg tablet 1 tab PO QAM hypertension 10/03/19 [History Confirmed 09/28/24] atorvastatin 20 mg tablet (Lipitor) 20 mg PO QAM 10/09/19 [History Confirmed 09/28/24] albuterol sulfate 90 mcg/actuation aerosol inhaler 1 inh inhalation Q6HR PRN shortness of breath 06/04/23 [History Confirmed 09/28/24] cholecalciferol (vitamin D3) 50 mcg (2,000 unit) capsule 50 mcg PO QAM 06/04/23 [History Confirmed 09/28/24] topiramate 50 mg capsule,extended release 24 hr 50 mg PO BID migraines 06/04/23 [History Confirmed 09/28/24] bumetanide 1 mg tablet 1 mg PO DAILY PRN swelling 05/16/24 [History Confirmed 09/28/24] paroxetine HCl 20 mg tablet 20 mg PO QAM anxiety 05/17/24 [History Confirmed 09/28/24] meclizine 25 mg chewable tablet (Antivert) 25 mg PO DAILY PRN vertigo 05/25/24 [History Confirmed 09/28/24] aripiprazole 5 mg tablet 5 mg PO QHS 06/29/24 [History Confirmed 09/28/24] folic acid 1 mg tablet 1 mg PO QAM 07/21/24 [History Confirmed 09/28/24] methotrexate sodium 2.5 mg tablet 5 mg PO 3XW 07/21/24 [History Confirmed 09/28/24] trazodone 50 mg tablet 50 mg PO QHS PRN insomnia 07/21/24 [History Confirmed 09/28/24] pregabalin 150 mg capsule 150 mg PO BID 30 days #60 caps 08/24/24 [Rx Confirmed 09/28/24] meloxicam 15 mg tablet 15 mg PO DAILY PRN pain 09/12/24 [History Confirmed 09/28/24] pantoprazole 40 mg tablet,delayed release 40 mg PO QAM 09/12/24 [History Confirmed 09/28/24] tirzepatide 10 mg/0.5 mL subcutaneous pen injector (Jerry) 10 mg subcut QWEEK09/12/24 [History Confirmed 09/28/24] tizanidine 4 mg tablet 4 mg PO BID PRN muscle spasticity 09/12/24 [History Confirmed 09/28/24] Exam Physical Exam Vital Signs: Temp Pulse Resp BP Pulse Ox O2 Del Method O2 Flow Rate 37.1 C 90 28 H 116/57 L 93 L High Flow 40 09/28/24 08:34 09/28/24 11:21 09/28/24 11:21 09/28/24 11:21 09/28/24 11:21 09/28/24 11:21 09/28/24 11:21 FiO2 100 09/28/24 11:21 Results - Hospitalist H&P Lab Results Labs: Laboratory Last Values Corrected WBC 18.3 X10E3/uL (3.8-11.6) H 09/28/24 08:38 Uncorrected WBC Count 18.3 x10E3/uL (3.8-11.6) H 09/28/24 08:38 RBC 3.88 x10E6/uL (3.60-5.00) 09/28/24 08:38 Hgb 13.0 g/dL (11.8-15.4) 09/28/24 08:38 Hct 38.5 % (34.0-46.4) 09/28/24 08:38 MCV 99.3 fl (80-100) 09/28/24 08:38 MCH 33.5 pg (24.7-34.3) 09/28/24 08:38 MCHC 33.8 g/dL (32.0-35.0) 09/28/24 08:38 RDW 16.7 % (11.9-15.3) H 09/28/24 08:38 Plt Count 187 x10E3/uL (150-450) 09/28/24 08:38 MPV 9.3 fl (6.3-10.7) 09/28/24 08:38 Neut % (Auto) 82.2 % (.) 09/28/24 08:38 Lymph % (Auto) 10.3 % (.) 09/28/24 08:38 [place] % (Auto) 6.8 % (.) 09/28/24 08:38 Eos % (Auto) 0.1 % (.) 09/28/24 08:38 Baso % (Auto) 0.6 % (.) 09/28/24 08:38 Nucleat RBC Rel Count 0.1 /100 WBC (0-0.5) 09/28/24 08:38 Neut # (Auto) 15.0 x10E3/uL (1.8-7.7) H 09/28/24 08:38 Lymph # (Auto) 1.9 x10E3/uL (1.00-4.8) 09/28/24 08:38 [place] # (Auto) 1.2 x10E3/uL (0.0-0.8) H 09/28/24 08:38 Eos # (Auto) 0.0 x10E3/uL (0.0-0.45) 09/28/24 08:38 Baso # (Auto) 0.1 x10E3/uL (0.0-0.2) 09/28/24 08:38 Monocyte Dist Width 23.18 % (0.00-20.00) H 09/28/24 08:38 PT 15.1 Seconds (9.0-12.9) H 09/28/24 08:38 INR 1.3 09/28/24 08:38 PHA Creatinine Clear 52.83 09/28/24 08:38 Sodium 129 mmol/L (136-145) L 09/28/24 08:38 Potassium 3.3 mmol/L (3.5-5.1) L 09/28/24 08:38 Chloride 95 mmol/L (98-107) L 09/28/24 08:38 Carbon Dioxide 21.8 mmol/L (21.0-31.0) 09/28/24 08:38 Anion Gap 15.5 mEq/L (6.0-15.0) H 09/28/24 08:38 BUN 19 mg/dL (7-25) 09/28/24 08:38 Creatinine 1.24 mg/dL (0.60-1.20) H 09/28/24 08:38 Est GFR (CKD-EPI) 48.901 mL/Min 09/28/24 08:38 Glucose 196 mg/dL (70-100) H 09/28/24 08:38 Lactic Acid 3.4 mmol/L (0.5-1.9) H* 09/28/24 08:38 Calcium 8.1 mg/dL (8.6-10.3) L 09/28/24 08:38 Total Bilirubin 0.8 mg/dl (0.3-1.0) 09/28/24 08:38 AST 30 U/L (13-39) 09/28/24 08:38 ALT 13 U/L (7-52) 09/28/24 08:38 Alkaline Phosphatase 55 U/L (34-104) 09/28/24 08:38 Troponin I High Sens 295 ng/L (0-15) H* 09/28/24 09:36 B-Natriuretic Peptide 420.0 pg/mL (5-100) H 09/28/24 08:38 Total Protein 6.0 gm/dL (6.4-8.9) L 09/28/24 08:38 Albumin 3.0 gm/dL (3.5-5.7) L 09/28/24 08:38 Globulin 3.0 gm/dL 09/28/24 08:38 Albumin/Globulin Ratio 1.0 09/28/24 08:38 Lipase 6.0 U/L (11.0-82.0) L 09/28/24 08:38 COVID-19 Clin Com Not detected (Not Detecte) 09/28/24 09:21 Microbiology Results Micro: Microbiology - Results from entire visit 09/28/24 09:21 Nasopharyngeal Respiratory Panel (PCR) - Final Imaging Imaging reports attestation: I have reviewed the image and/or report and agree with the impression Assessment & Plan Assessment/Plan (1) Acute respiratory failure with hypoxemia: (2) Severe sepsis: (3) Community acquired pneumonia: (4) Demand ischemia of myocardium: (5) COPD exacerbation: (6) Nicotine dependence: (7) Hypertension: (8) History of parotidectomy: (9) Morbid obesity: Plan 63-year-old female with past medical history of nicotine dependence actively smoking, asthma, recent parathyroid surgery with Dr. Lal, fibromyalgia, GERD, hypertension, hypothyroidism, depression/anxiety presented from home due to not feeling well for past 3 days. Patient was admitted for severe sepsis secondary to community-acquired pneumonia leading to acute respiratory failure with hypoxemia and COPD exacerbation. 1. Severe sepsis with lactic acidosis as well as acute respiratory failure withhypoxemia from community-acquired pneumonia 2. COPD exacerbation Admit under ICU level of care Currently on high flow nasal cannula IV steroids Pulmonary service consult Could benefit from BiPAP Check viral respiratory panel Blood culture x 2 Check procalcitonin and MRSA swab Continue with vancomycin and Zosyn Patient at high risk of significant decompensation Trend lactic acid COVID swab is negative 3. Elevated troponin secondary to demand ischemia Secondary to hypoxemia Do not suspect that patient has ACS Will continue to monitor troponin is already downtrending To consider echocardiogram if tomorrow's troponin is increased 4. Nicotine dependence Recommended smoking cessation 5. Hyperlipidemia Continue with Lipitor 6. Hypothyroidism Continue with levothyroxine 7. DVT prophylaxis SCDs and Lovenox Plan discussed with patient and at bedside in ED bed 1 Full code as per patient but does not want to be on prolonged ventilation High level of MDM based on above issue and discussing plan This note is created using voice recognition software. All efforts were made tominimize errors, if they are is due to breaker up machine operator. Pedro Luis Roper MD Hospitalist IP vs OBS Justification Based on differential dx, clinical care plan, and risk of adverse events, if untreated, in my clinical judgement this patient requires an acute care setting as: INPATIENT because of an expectation of an over 2 midnight stay. Estimated length of stay (# of days): 5 Documented By: Pedro Luis Roper MD 09/28/24 1143 Signed By: <Electronically signed by Pedro Luis Roper MD> 09/28/[address] [facility] Work Phone: History of Present illness Narrative* Stephanie Pelayo, VERENA - 12/27/2023 6:00 PM EDT Images from the original note were not included. Kaylynn Talamantes is a 63 y.o. female presents with chief complaint of URI HPI: Upper Respiratory Infection Patient complains of symptoms of a URI. Symptoms include congestion, nasal congestion, post nasal drip, purulent nasal discharge, and sinus pressure. Onset of symptoms was 4 days ago, and has been gradually worsening since that time. Treatment to date: antihistamines. URI Associated symptoms include congestion, coughing and sinus pain. SUBJECTIVE: MEDICATIONS: ALLERGIES Current Outpatient Medications Medication Instructions albuterol HFA 90 mcg/act inhaler 2 puffs, Inhalation, Every 4 hours PRN ARIPiprazole (ABILIFY) 5 mg, Oral, Every morning atorvastatin (LIPITOR) 20 mg, Oral, Daily bumetanide (BUMEX) 1 mg, Oral, Daily cholecalciferol (VITAMIN D-3) 2,000 Units, Daily HYDROcodone-acetaminophen ([place]) 5-325 MG tablet 1 tablet, Daily PRN levothyroxine (SYNTHROID) 75 mcg, Oral, Daily before breakfast lisinopril-hydroCHLOROthiazide 20-12.5 MG tablet TAKE 1 TABLET DAILY metFORMIN (GLUCOPHAGE) 500 mg, Oral, 2 times daily with meals Mounjaro 5 mg, Subcutaneous, Weekly Mounjaro 2.5 mg, Subcutaneous, Weekly pantoprazole (PROTONIX) 40 mg, Oral, Daily PARoxetine (PAXIL) 10 mg, Oral, Every morning pregabalin (Lyrica) 100 MG capsule topiramate 50 MG tablet 1 tablet, Oral, 2 times daily Allergies Allergen Reactions Acyclovir Unknown Horrible headaches, cannot hear Horrible headaches, cannot hear Tuberculin Tests Unknown PAST MEDICAL HISTORY: SOCIAL HISTORY SURGICAL HISTORY: Past Medical History: Diagnosis Date Allergic 2008 Allergies Anxiety 1999 Asthma ([facility]) Back pain Backache 03/26/2016 Bursitis Depression ([facility]) 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[facility]) Disease of thyroid gland ([facility]) 2001 Ear problems GERD (gastroesophageal reflux disease) 2001 Headache 2001 HL (hearing loss) 2011 HTN (hypertension) ([facility]) Hyperlipidemia ([facility]) Major depressive disorder, recurrent episode, moderate ([facility]) 03/19/2023 Myalgia, unspecified site and myositis OA (osteoarthritis) Obesity 2002 Otitis media, chronic RA (rheumatoid arthritis) ([facility]) Reactive airway disease ([facility] [facility]) Renal cyst Scoliosis 1988 Shingles 06/2016 right arm/chest Sinusitis Visual impairment 1992 Social History Tobacco Use Smoking status: Every Day Current packs/day: 1.00 Average packs/day: 1 pack/day for 40.0 years (40.0 ttl pk-yrs) Types: Cigarettes Smokeless tobacco: Never Substance Use Topics Alcohol use: Not Currently Comment: No alcohol since 2013 Drug use: Never Past Surgical History: Procedure Laterality Date ADENOIDECTOMY 1965 BIOPSY 1984 cone biopsy CARDIAC CATHETERIZATION 2010 CARPAL TUNNEL RELEASE Right 04/2016 SECTION, LOW TRANSVERSE x2 1985, 1991 CHOLECYSTECTOMY COLONOSCOPY 2005 CYST REMOVAL chest/neck HYSTERECTOMY 2013 LIPOMA RESECTION 1988 removed from right arm MASTOID SURGERY Right 10/09/2019 MYRINGOPLASTY W/ FAT GRAFT Right 04/18/2020 SHOULDER SURGERY Left 2012 adhesive capsulitis TONSILLECTOMY 2019 with adenoidectomy TUBAL LIGATION 1999 rupture TUBAL LIGATION 1992 TYMPANOPLASTY TYMPANOSTOMY TUBE PLACEMENT 08/14/2014 TYMPANOSTOMY TUBE PLACEMENT Right 2017 TYMPANOSTOMY TUBE PLACEMENT Right 10/01/2020 REVIEW OF SYMPTOMS: Review of Systems Constitutional: Negative. HENT: Positive for congestion, sinus pressure and sinus pain. Eyes: Negative. Respiratory: Positive for cough. Cardiovascular: Negative. Gastrointestinal: Negative. Genitourinary: Negative. Musculoskeletal: Negative. Skin: Negative. Neurological: Negative. Psychiatric/Behavioral: Negative. All other systems reviewed and are negative. Hematological: Negative. Endocrine: Negative. Allergic/Immunologic: Negative. OBJECTIVE: Vitals: 12/27/23 1716 BP: 126/78 Pulse: 90 Resp: 18 SpO2: 92% Physical Exam Vitals and nursing note reviewed. Constitutional: Appearance: Normal appearance. HENT: Head: Normocephalic and atraumatic. Right Ear: Tympanic membrane normal. Left Ear: Tympanic membrane normal. Nose: Nose normal. Mouth/Throat: Mouth: Mucous membranes are moist. Pharynx: Oropharynx is clear. Eyes: Pupils: Pupils are equal, round, and reactive to light. Cardiovascular: Rate and Rhythm: Normal rate and regular rhythm. Heart sounds: Normal heart sounds. Pulmonary: Effort: Pulmonary effort is normal. Comments: Scattered wheezes Musculoskeletal: General: Normal range of motion. Cervical back: Normal range of motion. Skin: General: Skin is warm and dry. Neurological: General: No focal deficit present. Mental Status: She is alert. Psychiatric: Mood and Affect: Mood normal. ASSESSMENT AND PLAN: Assessment/Plan Diagnoses and all orders for this visit: Pneumonia of left upper lobe due to Mycoplasma pneumoniae - azithromycin (Zithromax) 250 MG tablet; Take 2 today then on daily until gone - predniSONE (Deltasone) 20 MG tablet; Take 1 tablet (20 mg) by mouth in the morning and 1 tablet (20 mg) before bedtime. Do all this for 5 days. Cover with zithromax prednisone for the inflammation and use the albuterol 2 puffs every 4-6 hours.Fluids rest FU in 2 days if not improved Type 2 diabetes mellitus with other specified complication (CMS/HCC Just started mounjaro Hyperlipidemia, unspecified (CMS/HCC) stable No follow-ups on file. [facility] Additional Instructions Alternate Tylenol ibuprofen as needed for pain Take [place] as needed for severe pain, do not drink, drive, operate heavy machinery while taking Return to emergency room for worsened pain, increased swelling, if your toes are bluish-luciano in colorUniversity [facility] Work Phone: Progress note Author Myriam Lebron [facility] Note Date/Time June 29, 2024 10:00a [facility] [place] [address] Cancer Center Note Signed Patient: Kaylynn Talamantes MR#: [id number] : 1960 Acct:[id number] Age/Sex: 64 / F Type: REG AMB Date of Service: 06/29/24 Copies to: Dominik Mcdaniel MD~ Assessment & Plan A/P (1) Erythrocytosis: Plan Unclear etiology of the erythrocytosis (primary polycythemia vera versus secondary to sleep apnea or any other abnormalities of liver or kidney disease or tumors. She smokes less than a pack a day for 50 years however her pulse ox 98% on room air today. I obtained the following labs including erythropoietin level, reticulocyte count, iron studies, B12, folate, JAK2 with reflex panel, CBC with differential and CMP. Also I referred her to sleep medicine to obtain sleep test. She stated that shehad a sleep test before about 3 years ago and about a year or 2 ago and the lastone was inconclusive but she had normal CBC then. Now there is a reason to repeat his as he is polycythemic now for the first time. 06/29/24: Patient is here for her polycythemia and lab results and to see if she needs phlebotomy. Her labs on 05/19/2024 revealed hematocrit was 44.2 with normal RBC of 4.62 million and normal WBC with platelet count was 111. MCV was normal at 95.6. CMP was within normal range. Erythropoietin level was normal at 12.2. Iron wasnormal at 117 TIBC normal 351 iron saturation was normal 33%. Ferritin was normal 114.7. LFTs unremarkable. B12 low normal 213 and folate is normal 8.2. JAK2 with reflex panel were all negative for V617F, exon 12-13, calretinin and MPL mutations. And repeated labs on 06/27/2024 revealed hematocrit 42.3 normal with normal WBC 7.4 and normal platelet count this time 165. Her RBC is normal still 4.46 million. Patient did not require any phlebotomies. PLAN: I still recommend doing sleep test again to see if she has sleep apnea which migh explain her intermittent secondary polycythemia or erythrocytosis. Follow CBCD every 4 months with phlebotomy 500 ml if HCT is 50 or higher. RTC in 12 months sooner if she has new complaints. Orders: Orders Complete Blood Count Auto Diff 06/27/24 D75.1 - Secondary polycythemia Patient Instructions: cbc O1EIETEN phlebotomy if Hct >50 return in 1 year CHEMO PLAN No Active Chemotherapy History of Present Illness IOANA Chaidez is a 64-year-old nice lady was referred to our hematology clinic to be evaluated for erythrocytosis. Has a history of fibromyalgia, arthritis, thyroid disease, vitamin D deficiency,diabetes mellitus and chronic lower extremity edema. She stated that she had progressive arthritis affecting various parts of her body. She has experienced severe fibromyalgia characterized by widespread body aches impeding her mobilitysignificantly. She was started on Mounjaro in the fall 2023 which has been beneficial in managing her appetite. She also states that she has some sleep disturbances butthis includes related to her shoulder and back arthritis. Current medication include metformin, vitamin D, Bumex and Mounjaro as well as Lipitor albuterol, DuoNebs inhalers and levothyroxine, Lyrica, topiramate and pantoprazole. She is on [place] for arthritic pain as well. Labs on 04/24/2024 revealed negative rheumatoid factor less than 10. ARASELI was negative, TSH was 2.39 within normal range. Creatinine 0.69. Calcium 9.4. Total protein 6.9. Albumin 4.2 normal. Globulin 2.7 normal. Total bilirubin is 0.7. Alkaline phosphatase 68. AST 16 and ALT 16. WBC is 8.9 hemoglobin 17.1increased and hematocrit 50.8 which is high and higher compared with the prior studies. Last time her hematocrit was normal but on 02/04/2023 and platelet count is low 121 has been intermittently waxing and waning around that number. She stated she had to sleep test before one of them 3 years ago was negative estee year over a year and a half ago was inconclusive. At that point her hematocrit was normal at that point. Patient smokes less than a pack per day for 15 years and was never diagnosed with COPD or infection. She denied any history of thrombotic events or TIA or stroke or CT does not use any anticoagulation or aspirin. 06/29/24: Patient is here for her polycythemia and lab results and to see if she needs phlebotomy. Her labs on 05/19/2024 revealed hematocrit was 44.2 with normal RBC of 4.62 million and normal WBC with platelet count was 111. MCV was normal at 95.6. CMP was within normal range. Erythropoietin level was normal at 12.2. Iron wasnormal at 117 TIBC normal 351 iron saturation was normal 33%. Ferritin was normal 114.7. LFTs unremarkable. B12 low normal 213 and folate is normal 8.2. JAK2 with reflex panel were all negative for V617F, exon 12-13, calretinin and MPL mutations. And repeated labs on 06/27/2024 revealed hematocrit 42.3 normal with normal WBC 7.4 and normal platelet count this time 165. Her RBC is normal still 4.46 million. Patient did not require any phlebotomies. She complains mainly of body aches, muscle pain like fibromyalgia and arthritis pain. She is seeing her press operator carbon blocks on 06/30/24. 14 point systems were reviewed and are otherwise negative. Intake Vitals/Pain Assessment 06/29/24 09:34 Height 5 ft 2.5 in Weight 111.584 kg BMI 44.2 Body Fat % 62.19 BP 138/83 Blood Pressure Location Rt brachial Position Sitting Pulse 93 Pulse Source NIBP Respiration 20 Pulse Oximetry (%) 98 Oxygen Delivery Method room air Are you having pain? Yes Pain Location generalized Pain scale (0-10) 9 Intake Visit Reasons: FOLLOW UP Allergies acyclovir Adverse Reaction (Verified 06/29/24 09:38) Headache Home Medications - Last Reconciled 06/29/24 by GONZALO Edge albuterol sulfate 90 mcg/actuation 1 inh inhalation Q6HR aripiprazole 5 mg PO DAILY atorvastatin (Lipitor) 20 mg PO DAILY bumetanide 1 mg PO DAILY cholecalciferol (vitamin D3) 50 mcg PO DAILY hydrocodone-acetaminophen 5-325 mg 1 tab PO BID PRN 30 days levothyroxine 50 mcg PO DAILY lisinopril-hydrochlorothiazide 20-12.5 mg 1 tab PO DAILY meclizine (Antivert) 25 mg PO DAILY PRN pantoprazole 20 mg PO DAILY paroxetine HCl 20 mg PO QDAY pregabalin 150 mg PO BID 30 days tirzepatide (Mounjaro) 2.5 mg subcut QWEEK tizanidine (Zanaflex) 4 mg PO BID PRN 30 days topiramate XR 50 mg PO BID Gastrointestinal Is the patient taking opioids for pain control?: Yes Bowel Protocol for Opioids Given: Yes Bowel Pattern: Regular Bowel Movement Aid(s): None Falls Fall Precaution Measures Taken: Patient in chair Nurse's Note: Patient is here for a 6 week follow up with labs for review. States she will seea press operator carbon blocks in [place] tomorrow. [facility] Medical History Medical History Erythrocytosis Lipoma of arm Right upper arm; excision of same Problem List clean-up per request of Phys. 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 EHR Cmte Depression with anxiety currently on no meds Problem List clean-up per request of Phys. EHR Cmte Arthritis Problem List clean-up per request of Phys. EHR Cmte Sinusitis hx. Problem List clean-up per request of Phys. EHR Cmte History of ear infection Problem List clean-up per request of Phys. EHR Cmte Vertigo Problem List clean-up per request of Phys. EHR Cmte GERD (gastroesophageal reflux disease) Problem List clean-up per request of Phys. EHR Cmte Hypothyroid Problem List clean-up per request of Phys. EHR Cmte Hypertension Problem List clean-up per request [facility] Phys. [facility] Surgical History History of tonsillectomy and adenoidectomy Problem List clean-up per request of Phys. EHR Cmte History of x 2 Problem List clean-up per request of Phys. EHR Cmte History of tubal ligation x 2; , Problem List clean-up per request of Phys. EHR Cmte History of shoulder surgery left shoulder Problem List clean-up per request of Phys. EHR Cmte History of laparoscopic cholecystectomy Problem List clean-up per request of Phys. EHR Cmte H/O myringotomy right ear; also prior bilateral w/ tubes Problem List clean-up per request of Phys. EHR Cmte History of hysterectomy with bilateral oophorectomy hx. large ovarian cyst Problem List clean-up per request of Phys. EHR Cmte Family History Family History Mother Stroke Rheumatoid arthritis Osteoarthritis Social History Social History Smoking status: Current every day smoker What tobacco products do you use: cigarettes Packs per day: 1 Within the past year, how often did you have a drink containing alcohol: never AUDIT-C Alcohol total score: 0 AUDIT-C Alcohol score interpretation: A score less than 3 is consistent with normal alcohol consumption. In the past 12 months, have you used illegal drugs or prescription drugs for non-medical reasons?: No Review of Systems ROS Details: All systems reviewed & no additional complaints except as documented General: Patient denied fevers, chills, rigors, weight loss or loss of appetite. Head: Patient denied any headaches or vision changes Thoracic: Patient denied any shortness of breath or cough or hemoptysis Cardiovascular patient denies any chest pain or leg edema GI: Patient denies any nausea vomiting rectal bleed diarrhea : Patient denied gross hematuria. Hematology: Patient denied any bleeding from any source. No easy bruising. Lymphatic: No enlarged LAP anywhere. Skin: Normal skin exam no rashes or suspicious lesions. Neurological patient denies any headache or dizziness or focal weakness or sensory changes. Physical Exam EXAM HEENT normocephalic atraumatic pupils are equal and round Neck supple without thyromegaly or any cervical lymphadenopathy. Chest clear to auscultation bilaterally without wheezing crackles or rhonchi Heart regular rate and rhythm S1-S2 without murmurs gallop or rub Abdomen soft nontender not distended without hepatosplenomegaly or masses clinically Extremities no edema of the lower extremities Skin without any suspicious rashes Lymphatic system no lymphadenopathy in the cervical area axillary areas or inguinal areas bilaterally Neurological exam patient is cooperative alert and oriented x3 no focal deficits. Results - [facility] (Med Onc) LAB RESULTS Corrected WBC 7.4 X10E3/uL (3.8-11.6) 06/27/24 12:18 5 Hgb 14.7 g/dL (11.8-15.4) 06/27/24 12:18 06/27/24 Hct 42.3 % (34.0-46.4) 06/27/24 12:18 06/27/24 MCV 94.8 fl (80-100) 06/27/24 12:18 06/27/24 RDW 12.7 % (11.9-15.3) 06/27/24 12:18 06/27/24 Plt Count 165 x10E3/uL (150-450) 06/27/24 12:18 06/27/24 Iron 60 ug/dL (50-212) 06/27/24 12:18 06/27/24 Iron Saturation 21.9 % (20-50) 06/27/24 12:18 06/27/24 Ferritin 250.7 ng/mL (11.0-306.8) 06/27/24 12:18 Dictated By: Myriam Lebron MD DD/ 0931 Signed By: <Electronically signed by Myriam Lebron MD> 06/29/24 [address] [facility] Work Phone: Reason for referral (narrative)* Consultation (Routine) - Pending Review Specialty Diagnoses / Procedures Referred By Mathew t Referred To Contact Orthopaedic Surgery Diagnoses Arthralgia, unspecified joint Stephanie Pelayo NP [address] [place] [address] Elia Kumari DO [address] [facility] [address] [place] [address] Referral ID Status Reason Start Date Expiration Date Visits Requested Visits Authorized [id number] Pending Review Specialty Services Required 10/19/2023 04/16/2024 1 1 [facility])No reason for referral information [facility] Work Phone: Reason for visit Narrative* Rehabilitation - Outpatient (Routine) - Authorized Specialty Diagnoses / Procedures Referred By Contac t Referred To Contact Physical Therapy Diagnoses LBP Fibromyalgia Procedures [place] PHYSICAL THERAPY EVALUATION HIGH COMPLEX 45 MINS David La MD [address] [address] Phone: tel: fax: Ruthy Pantoja, PT [address] [place] [address] Phone: tel: fax: Referral ID Status Reason Start Date Expiration Date V isits Requested Visits Authorized [id number] Authorized 03/31/2024 09/27/2024 40 40 [facility] N[facility]* Rehabilitation - Outpatient (Routine) - Authorized Specialty Diagnoses / Procedures Referred By Contac t Referred To Contact Physical Therapy Diagnoses LBP Fibromyalgia Procedures TN PHYSICAL THERAPY EVALUATION HIGH COMPLEX 45 MINS David La MD [address] [address] Phone: tel: fax: Ruthy Pantoja, PT [address] [place] [address] Phone: tel: fax: Referral ID Status Reason Start Date Expiration Date V isits Requested Visits Authorized [id number] Authorized 03/31/2024 02/28/2025 40 40 [facility] Summary Purpose Family History Relationship Condition Age at Onset Recorded Date/T rajeev Not Specified Cerebrovascular accident (CVA) Unknown Rheumatoid arthritis Unknown Osteoarthritis Unknown Relationship Condition Age at Onset Recorded Date/T rajeev mother Cerebrovascular accident (CVA) Unknown Rheumatoid arthritis Unknown Osteoarthritis Unknown Advance Directives Advance Directive Response Recorded Date/ Time Advance Directives No October 02 11:09am Advance Directive Response Recorded Date/ Time Advance Directives No December 24, 2023 10:04am Advance Directive Response Recorded Date/ Time Advance Directives No December 24, 2023 11:04am Chief Complaint and Reason for Visit Chief Complaint H92.12 Chief Complaint REFF BY DR STEPHANIE MCDONNELL F M54.50;M25.559 Reason for Visit Chronic pain Hip pain Low back pain Sacroiliitis Thoracic spondylosis Chief Complaint follow up after pt/i maging bilateral SI joint injection f/u after noam SI joint inj FOLLOW UP AFTER PT Amb Documentation m47.814, m47.817 Reason for Visit Arthropathy of lumbo sacral facet joint Chronic pain Primary osteoarthritis of hips, bilateral Sacroiliitis Thoracic spondylosis Arthropathy of lumbosacral facet joint Chronic pain Fibromyalgia Sacroiliitis Arthropathy of lumbosacral facet joint Chronic pain Fibromyalgia Sacroiliitis Thoracic spondylosis Chief Complaint bilateral SI joint i njection f/u after noam SI joint inj FOLLOW UP AFTER PT Amb Documentation m47.814, m47.817 REVIEW MRI/INCREASED PAIN lt leg pain,nki Reason for Visit Arthropathy of lumbo sacral facet joint Chronic pain Fibromyalgia Sacroiliitis Arthropathy of lumbosacral facet joint Chronic pain Fibromyalgia Sacroiliitis Thoracic spondylosis Arthropathy of lumbosacral facet joint Chronic pain Fibromyalgia Lumbar radiculopathy Sacroiliitis Chief Complaint bilateral SI joint i njection f/u after noam SI joint inj FOLLOW UP AFTER PT Amb Documentation m47.814, m47.817 REVIEW MRI/INCREASED PAIN lt leg pain,nki Back Pain Reason for Visit Arthropathy of lumbo sacral facet joint Chronic pain Fibromyalgia Sacroiliitis Arthropathy of lumbosacral facet joint Chronic pain Fibromyalgia Sacroiliitis Thoracic spondylosis Arthropathy of lumbosacral facet joint Chronic pain Fibromyalgia Lumbar radiculopathy Sacroiliitis Chief Complaint FOLLOW UP AFTER PT Amb Documentation m47.814, m47.817 REVIEW MRI/INCREASED PAIN lt leg pain,nki Back Pain Back Pain f/u after LES/LEFT KNEE PAIN Back Pain Reason for Visit Arthropathy of lumbo sacral facet joint Chronic pain Fibromyalgia Sacroiliitis Thoracic spondylosis Arthropathy of lumbosacral facet joint Chronic pain Fibromyalgia Lumbar radiculopathy Sacroiliitis Arthropathy of lumbosacral facet joint Chronic pain Fibromyalgia Lumbar radiculopathy Primary osteoarthritis of left knee Sacroiliitis Thoracic spondylosis Chief Complaint FOLLOW UP AFTER PT Amb Documentation m47.814, m47.817 REVIEW MRI/INCREASED PAIN lt leg pain,nki Back Pain Back Pain f/u after LES/LEFT KNEE PAIN Back Pain Back Pain f/u after noam lumbar MBB, consider left knee st Back Pain Reason for Visit Arthropathy of lumbo sacral facet joint Chronic pain Fibromyalgia Sacroiliitis Thoracic spondylosis Arthropathy of lumbosacral facet joint Chronic pain Fibromyalgia Lumbar radiculopathy Sacroiliitis Arthropathy of lumbosacral facet joint Chronic pain Fibromyalgia Lumbar radiculopathy Primary osteoarthritis of left knee Sacroiliitis Thoracic spondylosis Arthropathy of lumbosacral facet joint Chronic pain Fibromyalgia Lumbar radiculopathy Primary osteoarthritis of left knee Sacroiliitis Thoracic spondylosis Chief Complaint lt leg pain,nki Back Pain Back Pain f/u after LES/LEFT KNEE PAIN Back Pain Back Pain f/u after noam lumbar MBB, consider left knee st Back Pain Back Pain follow up after lumbar facet mbb Back Pain Reason for Visit Arthropathy of lumbo sacral facet joint Chronic pain Fibromyalgia Lumbar radiculopathy Primary osteoarthritis of left knee Sacroiliitis Thoracic spondylosis Arthropathy of lumbosacral facet joint Chronic pain Fibromyalgia Lumbar radiculopathy Primary osteoarthritis of left knee Sacroiliitis Thoracic spondylosis Arthropathy of lumbosacral facet joint Chronic pain Fibromyalgia Lumbar radiculopathy Primary osteoarthritis of left knee Sacroiliitis Thoracic spondylosis Chief Complaint Admit Date follow up after lumbar facet mbb December 24, 2023 10:14am Back Pain January 05, 2024 8 :50am Back Pain January 05, 2024 1 0:37am 2 week f/u for RFA, Synvisc #1 left knee January 20, 2024 3:55pm MED REFILL January 31, 2024 3 :09pm synvisc #2 left knee February 03, 2024 3:48pm synvisc #3 left knee February 10, 2024 3:48pm med refill for pain control March 03, 2024 8:44am m25.561 g89.29 m25.512 March 20 10:12am Reason for Visit Admit Date Arthropathy of lumbosacral facet joint O ctober 2023 10:14am Chronic pain December 24, 2023 1 0:14am Fibromyalgia December 24, 2023 1 0:14am Lumbar radiculopathy December 24, 2023 10:14am Primary osteoarthritis of left knee Octo 2023 10:14am Sacroiliitis December 24, 2023 1 0:14am Thoracic spondylosis December 24, 2023 10:14am Arthropathy of lumbosacral facet joint N ov2023 3:55pm Chronic pain January 20, 2024 3:55pm Primary osteoarthritis of left knee Nove mber 2023 3:55pm Arthropathy of lumbosacral facet joint D [email or web address] 3:09pm Chronic pain January 31, 2024 3 :09pm Primary osteoarthritis of left knee Dece mber 2023 3:09pm Chronic pain February 03, 2024 3 :48pm Primary osteoarthritis of left knee Dece mber 2023 3:48pm Chronic pain February 10, 2024 3:48pm Primary osteoarthritis of left knee Dece mber 2023 3:48pm Chronic pain March 03, 2024 8: 44am Left shoulder pain March 03, 2024 8: 44am Primary osteoarthritis of left knee Bryant karl 2024 8:44am Right knee pain March 03, 2024 8: 44am Thoracic spondylosis March 03, 2024 8 :44am Chief Complaint Admit Date 2 week f/u for RFA, Synvisc #1 left knee January 20, 2024 3:55pm MED REFILL January 31, 2024 3 :09pm synvisc #2 left knee February 03, 2024 3:48pm synvisc #3 left knee February 10, 2024 3:48pm med refill for pain control March 03, 2024 8:44am m25.561 g89.29 m25.512 March 20 10:12am f/u and med refill, review imaging Noelle ry 2024 9:19am steroid injection to the right knee [facility] 2024 3:22pm Reason for Visit Admit Date Arthropathy of lumbosacral facet joint N ovember 2023 3:55pm Chronic pain January 20, 2024 3:55pm Primary osteoarthritis of left knee Nove mber 2023 3:55pm Arthropathy of lumbosacral facet joint D [email or web address] 3:09pm Chronic pain January 31, 2024 3 :09pm Primary osteoarthritis of left knee [facility] 2023 3:09pm Chronic pain February 03, 2024 3 :48pm Primary osteoarthritis of left knee [facility] 2023 3:48pm Chronic pain February 10, 2024 3:48pm Primary osteoarthritis of left knee Dece [facility] 2023 3:48pm Chronic pain March 03, 2024 8: 44am Left shoulder pain March 03, 2024 8: 44am Primary osteoarthritis of left knee Bryant karl 2024 8:44am Right knee pain March 03, 2024 8: 44am Thoracic spondylosis March 03, 2024 8 :44am Chronic pain March 31, 2024 9 :19am Fibromyalgia March 31, 2024 9 :19am Left shoulder pain March 31, 2024 9 :19am Primary osteoarthritis of left knee Bryant karl 2024 9:19am Primary osteoarthritis of right knee [facility] 2024 9:19am Sacroiliitis March 31, 2024 9 :19am Chronic pain April 13, 2024 3:22pm Primary osteoarthritis of right knee Feb ruary 2024 3:22pm Chief Complaint Admit Date MED REFILL January 31, 2024 3 :09pm synvisc #2 left knee February 03, 2024 3:48pm synvisc #3 left knee February 10, 2024 3:48pm med refill for pain control March 03, 2024 8:44am m25.561 g89.29 m25.512 March 20 10:12am f/u and [facility] 9:19am steroid injection to the right knee [facility] 2024 3:22pm MED REFILL FOR PAIN CONTROL April 9:13am Reason for Visit Admit Date Arthropathy of lumbosacral facet joint D ecember 2023 3:09pm Chronic pain January 31, 2024 3 :09pm Primary osteoarthritis of left knee [facility] 2023 3:09pm Chronic pain February 03, 2024 3 :48pm Primary osteoarthritis of left knee [facility] 2023 3:48pm Chronic pain February 10, 2024 3:48pm Primary osteoarthritis of left knee [facility] 2023 3:48pm Chronic pain March 03, 2024 8: 44am Left shoulder pain March 03, 2024 8: 44am Primary osteoarthritis of left knee [email or web address] 8:44am Right knee pain March 03, 2024 8: 44am Thoracic spondylosis March 03, 2024 8 :44am Chronic pain March 31, 2024 9 :19am Fibromyalgia March 31, 2024 9 :19am Left shoulder pain March 31, 2024 9 :19am Primary osteoarthritis of left knee [facility] 2024 9:19am Primary osteoarthritis of right knee [facility] 2024 9:19am Sacroiliitis March 31, 2024 9 :19am Chronic pain April 13, 2024 3:22pm Primary osteoarthritis of right knee Feb [facility] 2024 3:22pm Chronic pain April 27, 2024 9:13am Fibromyalgia April 27, 2024 9:13am Left shoulder pain April 27, 2024 9:13am Primary osteoarthritis of left knee [facility] 2024 9:13am Primary osteoarthritis of right knee Feb [facility] 2024 9:13am Sacroiliitis April 27, 2024 9:13am Chief Complaint Admit Date med refill for pain control March 03, 2024 8:44am m25.561 g89.29 m25.512 March 20 10:12am f/u and med refill, review imaging [facility] 2024 9:19am steroid injection to the right knee [facility] 2024 3:22pm MED REFILL FOR PAIN CONTROL April 9:13am Amb Documentation May 09, 2024 3:3 9pm M79.601 M79.602 May 10, 2024 8:0 3am Reason for Visit Admit Date Chronic pain March 03, 2024 8: 44am Left shoulder pain March 03, 2024 8: 44am Primary osteoarthritis of left knee [email or web address] 8:44am Right knee pain March 03, 2024 8: 44am Thoracic spondylosis March 03, 2024 8 :44am Chronic pain March 31, 2024 9 :19am Fibromyalgia March 31, 2024 9 :19am Left shoulder pain March 31, 2024 9 :19am Primary osteoarthritis of left knee [facility] 2024 9:19am Primary osteoarthritis of right knee [facility] 2024 9:19am Sacroiliitis March 31, 2024 9 :19am Chronic pain April 13, 2024 3:22pm Primary osteoarthritis of right knee Feb [facility] 2024 3:22pm Chronic pain April 27, 2024 9:13am Fibromyalgia April 27, 2024 9:13am Left shoulder pain April 27, 2024 9:13am Primary osteoarthritis of left knee [facility] 2024 9:13am Primary osteoarthritis of right knee Feb ruary 2024 9:13am Sacroiliitis April 27, 2024 9:13am Upper extremity pain April 27, 2024 9:13am Chief Complaint Admit Date med refill for pain control March 03, 2024 8:44am m25.561 g89.29 m25.512 March 20 10:12am f/u and med refill, review imaging [facility] 2024 9:19am steroid injection to the right knee [facility] 2024 3:22pm MED REFILL FOR PAIN CONTROL April 9:13am Amb Documentation May 09, 2024 3:3 9pm M79.601 M79.602 May 10, 2024 8:0 3am NEW - Erthocytosis May 17, 2024 1:4 7pm Erthrocytosis May 19, 2024 8:5 9am MED REFILL FOR PAIN CONTROL May 25, 2024 9:49am Reason for Visit Admit Date Chronic pain March 03, 2024 8: 44am Left shoulder pain March 03, 2024 8: 44am Primary osteoarthritis of left knee [facility] 2024 8:44am Right knee pain March 03, 2024 8: 44am Thoracic spondylosis March 03, 2024 8 :44am Chronic pain March 31, 2024 9 :19am Fibromyalgia March 31, 2024 9 :19am Left shoulder pain March 31, 2024 9 :19am Primary osteoarthritis of left knee [facility] 2024 9:19am Primary osteoarthritis of right knee [facility] 2024 9:19am Sacroiliitis March 31, 2024 9 :19am Chronic pain April 13, 2024 3:22pm Primary osteoarthritis of right knee Feb ruary 2024 3:22pm Chronic pain April 27, 2024 9:13am Fibromyalgia April 27, 2024 9:13am Left shoulder pain April 27, 2024 9:13am Primary osteoarthritis of left knee [facility] 2024 9:13am Primary osteoarthritis of right knee Feb ruary 2024 9:13am Sacroiliitis April 27, 2024 9:13am Upper extremity pain April 27, 2024 9:13am Erythrocytosis May 17, 2024 1:4 7pm Chronic pain May 25, 2024 9:4 9am Fibromyalgia May 25, 2024 9:4 9am Primary osteoarthritis of left knee [facility] 2024 9:49am Primary osteoarthritis of right knee [facility] 2024 9:49am Sacroiliitis May 25, 2024 9:4 9am Chief Complaint Admit Date f/u and med refill, review imaging [facility] 2024 9:19am steroid injection to the right knee [facility] 2024 3:22pm MED REFILL FOR PAIN CONTROL April 9:13am Amb Documentation May 09, 2024 3:3 9pm M79.601 M79.602 May 10, 2024 8:0 3am NEW - Erthocytosis May 17, 2024 1:4 7pm MED REFILL FOR PAIN CONTROL May 25, 2024 9:49am Erthrocytosis June 27, 2024 12: 07pm med refill June 29, 2024 8:46am Reason for Visit Admit Date Chronic pain March 31, 2024 9 :19am Fibromyalgia March 31, 2024 9 :19am Left shoulder pain March 31, 2024 9 :19am Primary osteoarthritis of left knee [facility] 2024 9:19am Primary osteoarthritis of right knee [facility] 2024 9:19am Sacroiliitis March 31, 2024 9 :19am Chronic pain April 13, 2024 3:22pm Primary osteoarthritis of right knee Feb ruary 2024 3:22pm Chronic pain April 27, 2024 9:13am Fibromyalgia April 27, 2024 9:13am Left shoulder pain April 27, 2024 9:13am Primary osteoarthritis of left knee [facility] 2024 9:13am Primary osteoarthritis of right knee Feb ruary 2024 9:13am Sacroiliitis April 27, 2024 9:13am Upper extremity pain April 27, 2024 9:13am Erythrocytosis May 17, 2024 1:4 7pm Chronic pain May 25, 2024 9:4 9am Fibromyalgia May 25, 2024 9:4 9am Primary osteoarthritis of left knee [facility] 2024 9:49am Primary osteoarthritis of right knee Mar 2024 9:49am Sacroiliitis May 25, 2024 9:4 9am Chronic pain June 29, 2024 8:46am Fibromyalgia June 29, 2024 8:46am Neck pain June 29, 2024 8:46am Primary osteoarthritis of left knee June 29, 2024 8:46am Primary osteoarthritis of right knee June 29, 2024 8:46am Sacroiliitis June 29, 2024 8:46am Chief Complaint Admit Date f/u and med refill, review imaging [facility] 2024 9:19am steroid injection to the right knee [facility] 2024 3:22pm MED REFILL FOR PAIN CONTROL April 9:13am Amb Documentation May 09, 2024 3:3 9pm M79.601 M79.602 May 10, 2024 8:0 3am NEW - Erthocytosis May 17, 2024 1:4 7pm MED REFILL FOR PAIN CONTROL May 25, 2024 9:49am med refill June 29, 2024 8:46am FOLLOW UP June 29, 2024 9:30am Reason for Visit Admit Date Chronic pain March 31, 2024 9 :19am Fibromyalgia March 31, 2024 9 :19am Left shoulder pain March 31, 2024 9 :19am Primary osteoarthritis of left knee [facility] 2024 9:19am Primary osteoarthritis of right knee [facility] 2024 9:19am Sacroiliitis March 31, 2024 9 :19am Chronic pain April 13, 2024 3:22pm Primary osteoarthritis of right knee Feb ruary 2024 3:22pm Chronic pain April 27, 2024 9:13am Fibromyalgia April 27, 2024 9:13am Left shoulder pain April 27, 2024 9:13am Primary osteoarthritis of left knee [facility] 2024 9:13am Primary osteoarthritis of right knee Feb ruary 2024 9:13am Sacroiliitis April 27, 2024 9:13am Upper extremity pain April 27, 2024 9:13am Erythrocytosis May 17, 2024 1:4 7pm Chronic pain May 25, 2024 9:4 9am Fibromyalgia May 25, 2024 9:4 9am Primary osteoarthritis of left knee [facility] 2024 9:49am Primary osteoarthritis of right knee Mar 2024 9:49am Sacroiliitis May 25, 2024 9:4 9am Chronic pain June 29, 2024 8:46am Fibromyalgia June 29, 2024 8:46am Neck pain June 29, 2024 8:46am Primary osteoarthritis of left knee June 29, 2024 8:46am Primary osteoarthritis of right knee June 29, 2024 8:46am Sacroiliitis June 29, 2024 8:46am Erythrocytosis June 29, 2024 9:30am Chief Complaint Admit Date steroid injection to the right knee [facility] 2024 3:22pm MED REFILL FOR PAIN CONTROL April 9:13am Amb Documentation May 09, 2024 3:3 9pm M79.601 M79.602 May 10, 2024 8:0 3am NEW - Erthocytosis May 17, 2024 1:4 7pm MED REFILL FOR PAIN CONTROL May 25, 2024 9:49am med refill June 29, 2024 8:46am FOLLOW UP June 29, 2024 9:30am m54.2 June 29, 2024 10:49a m Reason for Visit Admit Date Chronic pain April 13, 2024 3:22pm Primary osteoarthritis of right knee Feb ruary 2024 3:22pm Chronic pain April 27, 2024 9:13am Fibromyalgia April 27, 2024 9:13am Left shoulder pain April 27, 2024 9:13am Primary osteoarthritis of left knee [facility] 2024 9:13am Primary osteoarthritis of right knee Feb ruary 2024 9:13am Sacroiliitis April 27, 2024 9:13am Upper extremity pain April 27, 2024 9:13am Erythrocytosis May 17, 2024 1:4 7pm Chronic pain May 25, 2024 9:4 9am Fibromyalgia May 25, 2024 9:4 9am Primary osteoarthritis of left knee [facility] 2024 9:49am Primary osteoarthritis of right knee Mar 2024 9:49am Sacroiliitis May 25, 2024 9:4 9am Chronic pain June 29, 2024 8:46am Fibromyalgia June 29, 2024 8:46am Neck pain June 29, 2024 8:46am Primary osteoarthritis of left knee June 29, 2024 8:46am Primary osteoarthritis of right knee June 29, 2024 8:46am Sacroiliitis June 29, 2024 8:46am Erythrocytosis June 29, 2024 9:30am Chief Complaint Admit Date Amb Documentation May 09, 2024 3:3 9pm M79.601 M79.602 May 10, 2024 8:0 3am NEW - Erthocytosis May 17, 2024 1:4 7pm MED REFILL FOR PAIN CONTROL May 25, 2024 9:49am med refill June 29, 2024 8:46am FOLLOW UP June 29, 2024 9:30am m54.2 June 29, 2024 10:49a m med refill/reveiw imaging July 21, 2024 10:01am Reason for Visit Admit Date Erythrocytosis May 17, 2024 1:4 7pm Chronic pain May 25, 2024 9:4 9am Fibromyalgia May 25, 2024 9:4 9am Primary osteoarthritis of left knee [facility] 2024 9:49am Primary osteoarthritis of right knee Mar 2024 9:49am Sacroiliitis May 25, 2024 9:4 9am Chronic pain June 29, 2024 8:46am Fibromyalgia June 29, 2024 8:46am Neck pain June 29, 2024 8:46am Primary osteoarthritis of left knee May 1st, 2025 8:46am Primary osteoarthritis of right knee June 29, 2024 8:46am Sacroiliitis June 29, 2024 8:46am Erythrocytosis June 29, 2024 9:30am Cervical spondylosis July 21, 2024 10:0 1am Chronic pain July 21, 2024 10:01 am Fibromyalgia July 21, 2024 10:01 am Sacroiliitis July 21, 2024 10:01 am Chief Complaint Admit Date Amb Documentation May 09, 2024 3:3 9pm M79.601 M79.602 May 10, 2024 8:0 3am NEW - Erthocytosis May 17, 2024 1:4 7pm MED REFILL FOR PAIN CONTROL May 25, 2024 9:49am med refill June 29, 2024 8:46am FOLLOW UP June 29, 2024 9:30am m54.2 June 29, 2024 10:49a m med refill/reveiw imaging July 21, 2024 10:01[address]SULT DR. CURRAN LT [facility] August 01, 2024 2:10pm M79.642 - Pain in left hand August 01 2:37pm Reason for Visit Admit Date Erythrocytosis May 17, 2024 1:4 7pm Chronic pain May 25, 2024 9:4 9am Fibromyalgia May 25, 2024 9:4 9am Primary osteoarthritis of left knee [facility] 2024 9:49am Primary osteoarthritis of right knee Mar 2024 9:49am Sacroiliitis May 25, 2024 9:4 9am Chronic pain June 29, 2024 8:46am Fibromyalgia June 29, 2024 8:46am Neck pain June 29, 2024 8:46am Primary osteoarthritis of left knee June 29, 2024 8:46am Primary osteoarthritis of right knee June 29, 2024 8:46am Sacroiliitis June 29, 2024 8:46am Erythrocytosis June 29, 2024 9:30am Cervical spondylosis July 21, 2024 10:0 1am Chronic pain July 21, 2024 10:01 am Fibromyalgia July 21, 2024 10:01 am Sacroiliitis July 21, 2024 10:01 am Arthritis of both hands August 01, 2024 2 :10pm Bilateral hand pain August 01, 2024 2:10p m Carpal tunnel syndrome of left wrist Jul 2:10pm Chief Complaint Admit Date med refill June 29, 2024 8:46am FOLLOW UP June 29, 2024 9:30am m54.2 June 29, 2024 10:49a m med refill/reveiw imaging July 21, 2024 10:01am [address]SULT [address]. CURRAN LT HAND CTS August 01, 2024 2:10pm M79.642 - Pain in left hand August 01 2:37pm med refill/reveiw imaging August 24 9:14am Reason for Visit Admit Date Chronic pain June 29, 2024 8:46am Fibromyalgia June 29, 2024 8:46am Neck pain June 29, 2024 8:46am Primary osteoarthritis of left knee June 29, 2024 8:46am Primary osteoarthritis of right knee June 29, 2024 8:46am Sacroiliitis June 29, 2024 8:46am Erythrocytosis June 29, 2024 9:30am Cervical spondylosis July 21, 2024 10:0 1am Chronic pain July 21, 2024 10:01 am Fibromyalgia July 21, 2024 10:01 am Sacroiliitis July 21, 2024 10:01 am Arthritis of both hands August 01, 2024 2 :10pm Bilateral hand pain August 01, 2024 2:10p m Carpal tunnel syndrome of left wrist Jul 2:10pm Cervical spondylosis August 24, 2024 9:1 4am Chronic pain August 24, 2024 9:14 am Fibromyalgia August 24, 2024 9:14 am Sacroiliitis August 24, 2024 9:14 am Chief Complaint Admit Date med refill June 29, 2024 8:46am FOLLOW UP June 29, 2024 9:30am m54.2 June 29, 2024 10:49a m med refill/reveiw imaging July 21, [address] CURR[facility] LT HAND CTS August 01, 2024 2:10pm M79.642 - Pain in left hand August 01 2:37pm med refill/reveiw imaging August 24 9:14am Left Parotid Mass September 12, 2024 11:0 1am Chief Complaint Admit Date med refill June 29, 2024 8:46am FOLLOW UP June 29, 2024 9:30am m54.2 June 29, 2024 10:49a m med refill/reveiw imaging July 21, [address] CUR[facility] HAND C[facility] August 01, 2024 2:10pm M79.642 - Pain in left hand August 01 2:37pm med refill/reveiw imaging August 24 9:14am Left Parotid Mass September 12, 2024 11:0 1am Left Parotid Mass September 20, 2024 10:5 2am Chief Complaint Admit Date med refill/reveiw imaging July 21, [address] CUR[facility] LT HAND CTS August 01, 2024 2:10pm M79.642 - Pain in left hand August 01 2:37pm med refill/reveiw imaging August 24 9:14am Left Parotid Mass September 12, 2024 11:0 1am Left Parotid Mass September 20, 2024 10:5 2am Shortness of Breath September 28, 2024 10:5 7am Reason for Visit Admit Date Cervical spondylosis July 21, 2024 10:0 1am Chronic pain July 21, 2024 10:01 am Fibromyalgia July 21, 2024 10:01 am Sacroiliitis July 21, 2024 10:01 am Arthritis of both hands August 01, 2024 2 :10pm Bilateral hand pain August 01, 2024 2:10p m Carpal tunnel syndrome of left wrist Jul 2:10pm Cervical spondylosis August 24, 2024 9:1 4am Chronic pain August 24, 2024 9:14 am Fibromyalgia August 24, 2024 9:14 am Sacroiliitis August 24, 2024 9:14 am Acute respiratory failure with hypoxemia September 28, 2024 10:57am Community acquired pneumonia September 28, 2024 10:57am COPD exacerbation September 28, 2024 10:5 7am Demand ischemia of myocardium September 28, 2024 10:57am History of parotidectomy September 28, 2024 10:57am Hypertension September 28, 2024 10:5 7am Morbid obesity September 28, 2024 10:5 7am Nicotine dependence September 28, 2024 10:5 7am Severe sepsis September 28, 2024 10:5 7am Chief Complaint Admit Date med refill/reveiw imaging July 21, [address] CURR[facility] LT HAND CTS August 01, 2024 2:10pm M79.642 - Pain in left hand August 01 2:37pm med refill/reveiw imaging August 24 9:14am Left Parotid Mass September 12, 2024 11:0 1am Left Parotid Mass September 20, 2024 10:5 2am Shortness of Breath September 28, 2024 10:5 7am Shortness of Breath October 05, 2024 12: 00am Reason for Visit Admit Date Cervical spondylosis July 21, 2024 10:0 1am Chronic pain July 21, 2024 10:01 am Fibromyalgia July 21, 2024 10:01 am Sacroiliitis July 21, 2024 10:01 am Arthritis of both hands August 01, 2024 2 :10pm Bilateral hand pain August 01, 2024 2:10p m Carpal tunnel syndrome of left wrist [facility] 2024 2:10pm Cervical spondylosis August 24, 2024 9:1 4am Chronic pain August 24, 2024 9:14 am Fibromyalgia August 24, 2024 9:14 am Sacroiliitis August 24, 2024 9:14 am Acute hypokalemia September 28, 2024 10:5 7am Acute hyponatremia September 28, 2024 10:5 7am Acute hypoxic respiratory failure August [id number] 10:57am Acute respiratory failure with hypoxemia September 28, 2024 10:57am Bilateral hand pain September 28, 2024 10:5 7am Cervical spondylosis September 28, 2024 10: 57am Chronic pain September 28, 2024 10:5 7am Community acquired pneumonia September 28, 2024 10:57am Conjunctivitis September 28, 2024 10:5 7am COPD exacerbation September 28, 2024 10:5 7am COPD with acute exacerbation September 28, 2024 10:57am Demand ischemia of myocardium September 28, 2024 10:57am Elevated lactic acid level September 28 10:57am Fibromyalgia September 28, 2024 10:5 7am History of parotidectomy September 28, 2024 10:57am Hypertension September 28, 2024 10:5 7am Hypoxia September 28, 2024 10:5 7am Impaired mobility and activities of kerry y living September 28, 2024 10:57am Left shoulder pain September 28, 2024 10:5 7am Morbid obesity September 28, 2024 10:5 7am Nicotine dependence September 28, 2024 10:5 7am Non-ST elevation CT (NSTEMI) September 28, 2024 10:57am Pneumonia September 28, 2024 10:5 7am Severe sepsis September 28, 2024 10:5 7am Zoster conjunctivitis September 28, 2024 10 :57am Reason for Referral Specialty Diagnoses / Procedures Referred By Contac t Referred To Contact Radiology Diagnoses Tobacco dependence syndrome Personal history of nicotine dependence Procedures CT lung screening low dose Stephanie Pelayo NP [address] [place] [address] Referral ID Status Reason Start Date Expiration Date V isits Requested Visits Authorized [id number] Pending Review 12/02/2023 05/30/2024 1 1 Specialty Diagnoses / Procedures Referred By Contac t Referred To Contact Diagnoses Type 2 diabetes mellitus with hyperosmolarity without coma, without long-term current use of insulin ([facility]) Stephanie Pelayo NP [address] [place] [address] Referral ID Status Reason Start Date Expiration Date V isits Requested Visits Authorized [id number] Pending Review 12/07/2023 06/04/2024 1 1 Specialty Diagnoses / Procedures Referred By Contac t Referred To Contact Orthopaedic Surgery Diagnoses Primary osteoarthritis of left knee Procedures L Inj/Asp: L knee Elia Kumari, [address] [address] Referral ID Status Reason Start Date Expiration Date V isits Requested Visits Authorized [id number] Authorized 11/05/2023 05/03/2024 1 1 Specialty Diagnoses / Procedures Referred By Contac t Referred To Contact Orthopaedic Surgery Diagnoses Primary osteoarthritis of left knee Procedures L Inj/Asp: L knee Bj Moore, BUSINESS INTELLIGENCE MANAGER [address] [place] [address] Referral ID Status Reason Start Date Expiration Date V isits Requested Visits Authorized [id number] Authorized 11/19/2023 05/17/2024 1 1 Additional Source Comments INFORMATION SOURCE (unrecogn ized section and content) DATE CREATED AUTHOR 02/08/2018 [facility] DATE CREATED AUTHOR AUTHOR'S ORGANIZ ATION 07/13/2021 [facility] DATE CREATED AUTHOR AUTHOR'S ORGANIZ ATION 10/13/2021 [facility] dical Specialist DATE CREATED AUTHOR AUTHOR'S ORGANIZ ATION 10/24/2023 [facility] DATE CREATED AUTHOR AUTHOR'S ORGANIZ ATION 07/26/2024 [facility] DATE CREATED AUTHOR AUTHOR'S ORGANIZ ATION 10/16/2024 [facility] dical Specialists EPIC DATE CREATED AUTHOR AUTHOR'S ORGANIZ ATION 10/20/2024 [facility] Care Teams (unrecognized sec tion and content) Team Status: Active Member Role Status Ethan Mcdaniel MD Primary Care Provider Active Team Status: Inactive Member Role Status Ethan Mcdaniel MD Primary Care Provider Active Sta rt: June 29, 2024 End: June 29, 2024 Grisel Garner NP Attending Provider Active Start: June 29, 2024 End: June 29, 2024 Team Status: Inactive Member Role Status Ethan Mcdaniel MD Primary Care Provider Active Sta rt: June 29, 2024 End: June 29, 2024 Myriam Lebron MD Attending Provider Active Start: June 29, 2024 End: June 29, 2024 Roxie Rodriguez APRN BUSINESS INTELLIGENCE MANAGER-C Referring Provider Active Start: June 29, 2024 Team Status: Inactive Member Role Status Etahn Mcdaniel MD Primary Care Provider Active Sta rt: July 21, 2024 End: July 21, 2024 David La MD Attending Provider Active Sta rt: July 21, 2024 End: July 21, 2024 Team Status: Inactive Member Role Status Ethan Mcdaniel MD Primary Care Provider Active Sta rt: August 01, 2024 End: August 01, 2024 Yael Joya MD Attending Provider Active Start: August 01, 2024 End: August 01, 2024 Team Status: Inactive Member Role Status Ethan Mcdaniel MD Primary Care Provider Active Sta rt: August 24, 2024 End: August 24, 2024 Grisel Garner NP Attending Provider Active Start: August 24, 2024 End: August 24, 2024 Team Status: Active Member Role Status Ethan Mcdaniel MD Primary Care Provide r, Attending Provider Active Start: May 03, 2024 Team Status: Active Member Role Status Ethan Mcdaniel MD Primary Care Provider Active Sta rt: May 09, 2024 Aura Curry LPN Attending Provider Active S tart: May 09, 2024 Team Status: Active Member Role Status Ethan Mcdaniel MD Primary Care Provider Active Sta rt: May 10, 2024 Grisel Garner NP Other Provider Active Start: Apr Watson Curran MD Attending Provider Active Start: May 10, 2024 Team Status: Inactive Member Role Status Ethan Mcdaniel MD Primary Care Provider Active Sta rt: May 17, 2024 End: May 17, 2024 Myriam Lebron MD Attending Provider Active Start: May 17, 2024 End: May 17, 2024 Roxie Rodriguez APRN BUSINESS INTELLIGENCE MANAGER-C Referring Provider Active Start: May 17, 2024 End: May 17, 2024 Team Status: Inactive Member Role Status Ethan Mcdaniel MD Primary Care Provider Active Sta rt: May 25, 2024 End: May 25, 2024 Grisel Garner NP Attending Provider Active Start: May 25, 2024 End: May 25, 2024 Team Status: Inactive Member Role Status Ethan Mcdaniel MD Primary Care Provider Active Sta rt: June 29, 2024 End: June 29, 2024 Myriam Lebron MD Attending Provider Active Start: June 29, 2024 End: June 29, 2024 Roxie Rodriguez APRN BUSINESS INTELLIGENCE MANAGER-C Referring Provider Active Start: June 29, 2024 steffi posadas Active Start: June 29, 2024 Team Status: Inactive Member Role Status Ethan Mcdaniel MD Primary Care Provider Active Sta rt: July 21, 2024 End: July 21, 2024 Grisel Garner NP Active Start: June [id number] End: July 21, 2024 David La MD Attending Provider Active Sta rt: July 21, 2024 End: July 21, 2024 Team Status: Inactive Member Role Status Ethan Mcdaniel MD Primary Care Provider Active Sheldon Lal DO Attending Provider Active [employer]ician Relationship Specialty Start Date End Date Dominik Mcdaniel MD [address] [place] [address] PCP - General Family Medicine 08/05/22 [place] [address] [place] [id number] PCP - Medical [facility] 07/30/22 Ayse Carmona NP [address] [place] [address] Nurse Practitioner Family Medicine 08/05/22 Team Status: Inactive Member Role Status Ethan Mcdaniel MD Primary Care Provider Active Sta rt: June 04, 2023 End: June 04, 2023 David La MD Attending Provider Active Sta rt: June 04, 2023 End: June 04, 2023 Stephanie Pelayo APRN BUSINESS INTELLIGENCE MANAGER-C Referring Provider Active Start: June 04, 2023 End: June 04, 2023 Team Status: Inactive Member Role Status Ethan Mcdaniel MD Primary Care Provider Active Sta rt: June 04, 2023 End: June 04, 2023 David La MD Attending Provider Active Sta rt: June 04, 2023 End: June 04, 2023 Team Status: Inactive Member Role Status Ethan Mcdaniel MD Primary Care Provider Active Sta rt: July 09, 2023 End: July 09, 2023 David La MD Attending Provider Active Sta rt: July 09, 2023 End: July 09, 2023 Team Status: Inactive Member Role Status Ethan Mcdaniel MD Primary Care Provider Active Sta rt: July 22, 2023 End: July 22, 2023 David La MD Attending Provider Active Sta rt: July 22, 2023 End: July 22, 2023 Team Status: Active Member Role Status Ethan Mcdaniel MD Primary Care Provider Active Sta rt: July 22, 2023 David La MD Attending Provider Active Sta rt: July 22, 2023 Team Status: Inactive Member Role Status Ethan Mcdaniel MD Primary Care Provider Active Sta rt: August 06, 2023 End: August 06, 2023 David La MD Attending Provider Active Sta rt: August 06, 2023 End: August 06, 2023 Team Status: Inactive Member Role Status Ethan Mcdaniel MD Primary Care Provider Active Sta rt: September 10, 2023 End: September 10, 2023 David La MD Attending Provider Active Sta rt: September 10, 2023 End: September 10, 2023 Team Status: Active Member Role Status Ethan Mcdaniel MD Primary Care Provider Active Sta rt: September 16, 2023 Sonia Hood LPN Attending Provider Active Start: September 16, 2023 Team Status: Inactive Member Role Status Ethan Mcdaniel MD Primary Care Provider Active Sta rt: September 28, 2023 End: September 28, 2023 David La MD Attending Provider Active Sta rt: September 28, 2023 End: September 28, 2023 Team Status: Inactive Member Role Status Ethan Mcdaniel MD Primary Care Provider Active Sta rt: October 04, 2023 End: October 04, 2023 David La MD Attending Provider Active Sta rt: October 04, 2023 End: October 04, 2023 Team Status: Inactive Member Role Status Ethan Mcdaniel MD Primary Care Provider Active Sta rt: October 12, 2023 End: October 12, 2023 Donna Crawford APRN Emergency Provider Active Start: October 12, 2023 End: October 12, 2023 Team Status: Inactive Member Role Status Ethan Mcdaniel MD Primary Care Provider Active Sta rt: October 20, 2023 End: October 20, 2023 David La MD Attending Provider Active Sta rt: October 20, 2023 End: October 20, 2023 Team Status: Active Member Role Status Ethan Mcdaniel MD Primary Care Provider Active Sta rt: October 20, 2023 David La MD Attending Provider, Other Provider Active Start: October 20, 2023 Team Status: Inactive Member Role Status Dates Dominik Mcdaniel MD Primary Care Provider Active Sta rt: November 02, 2023 End: November 02, 2023 David La MD Attending Provider Active Sta rt: November 02, 2023 End: November 02, 2023 Team Status: Inactive Member Role Status Dates Dominik Mcdaniel MD Primary Care Provider Active Sta rt: November 17, 2023 End: November 17, 2023 David La MD Attending Provider Active Sta rt: November 17, 2023 End: November 17, 2023 Dispensing And Measuring Optician Relationship Specialty Start Date End Date Dominik Mcdaniel MD [address] [place] [address] PCP - General Family Medicine 08/05/22 Dominik Mcdaniel MD [address] [place] [address] PCP - Medical [facility] 06/27/18 02/28/99 Ayse Carmona NP [address] [place] [address] Nurse Practitioner Family Medicine 08/05/22 Alexandria Disla, RN [address] [place] [address] Registered Nurse Family Medicine 10/15/23 Dispensing And Measuring Optician Relationship Specialty Start Date End Date Dominik Mcdaniel MD [address] [place] [address] PCP - General Family Medicine 08/05/22 Dominik Mcdaniel MD [address] [place] [address] PCP - Medical [facility] [employer] 06/27/18 02/28/99 Ayse Carmona NP [address] [place] [address] Nurse Practitioner Family Medicine 08/05/22 Alexandria Disla RN [address] [place] [address] Registered Nurse Family Medicine 10/15/23 Dispensing And Measuring Optician Relationship Specialty Start Date End Date Dominik Mcdaniel MD [address] [place] [address] PCP - General Family Medicine 08/05/22 Dominik Mcdanile MD [address] [place] [address] PCP - Medical [facility] [employer] 06/27/18 02/28/99 Ayse Carmona, BUSINESS INTELLIGENCE MANAGER [address] [place] [address] Nurse Practitioner Family Medicine 08/05/22 Alexandria Disla RN [address] [place] [address] Registered Nurse Family Medicine 10/15/23 Dispensing And Measuring Optician Relationship Specialty Start Date End Date Dominik Mcdaniel MD [address] [place] [address] PCP - General Family Medicine 08/05/22 Dominik Mcdaniel MD [address] [place] [address] PCP - Medical [facility] [employer] 06/27/18 02/28/99 Ayse Carmona NP [address] [place] [address] Nurse Practitioner Family Medicine 08/05/22 Alexandria Disla RN [address] [place] [address] Registered Nurse Family Medicine 10/15/23 Team Status: Active Member Role Status Ethan Mcdaniel MD Primary Care Provider Active Sta rt: November 17, 2023 David La MD Attending Provider, Other Provider Active Start: November 17, 2023 Team Status: Inactive Member Role Status Ethan Mcdaniel MD Primary Care Provider Active Sta rt: November 26, 2023 End: November 26, 2023 David La MD Attending Provider Active Sta rt: November 26, 2023 End: November 26, 2023 Team Status: Inactive Member Role Status Ethan Mcdaniel MD Primary Care Provider Active Sta rt: December 08, 2023 End: December 08, 2023 David La MD Attending Provider Active Sta rt: December 08, 2023 End: December 08, 2023 Dispensing And Measuring Optician Relationship Specialty Start Date End Date Dominik Mcdaniel MD [address] [facility] [place] [address] PCP - General Family Medicine 08/05/22 Dominik Mcdaniel MD [address] [facility] [place] [address] PCP - Medical [facility] 06/27/18 02/28/99 Ayse Carmona NP [address] [place] [address] Nurse Practitioner Family Medicine 08/05/22 Alexandria Disla, LAYTON [address] [place] [address] Registered Nurse Family Medicine 10/15/23 Dispensing And Measuring Optician Relationship Specialty Start Date End Date Dominik Mcdaniel MD [address] [facility] [place] [address] PCP - General Family Medicine 08/05/22 Dominik Mcdaniel MD [address] [facility] [place] [address] PCP - Medical [facility] [employer] 06/27/18 02/28/99 Ayse Carmona NP [address] [place] [address] Nurse Practitioner Family Medicine 08/05/22 Alexandria Disla, RN [address] [place] [address] Registered Nurse Family Medicine 10/15/23 Dispensing And Measuring Optician Relationship Specialty Start Date End Date Dominik Mcdaniel MD [address] [place] [address] PCP - General Family Medicine 08/05/22 Dominik Mcdaniel MD [address] [place] [address] PCP - Medical [facility] [employer] 06/27/18 02/28/99 Ayse Carmona NP [address] [place] [address] Nurse Practitioner Family Medicine 08/05/22 Alexandria Disla, RN [address] [place] [address] Registered Nurse Family Medicine 10/15/23 Dispensing And Measuring Optician Relationship Specialty Start Date End Date Dominik Mcdaniel MD [address] [place] [address] PCP - General Family Medicine 08/05/22 Dominik Mcdaniel MD [address] [place] [address] PCP - Medical [facility] [employer] 06/27/18 02/28/99 Ayse Carmona NP [address] [place] [address] Nurse Practitioner Family Medicine 08/05/22 Alexandria Disla RN [address] [facility] [place] [address] Registered Nurse Family Medicine 10/15/23 Dispensing And Measuring Optician Relationship Specialty Start Date End Date Dominik Mcdaniel MD [address] [facility] [place] [address] PCP - General Family Medicine 08/05/22 Dominik Mcdaniel MD [address] [place] [address] PCP - Medical [facility] [employer] 06/27/18 02/28/99 Ayse Carmona NP [address] [facility] [place] [address] Nurse Practitioner Family Medicine 08/05/22 Alexandria Disla RN [address] [facility] [place] [address] Registered Nurse [facility] Medicine 10/15/23 Team Status: Active Member Role Status Dates Dominik Mcdaniel MD Primary Care Provider Active Sta rt: December 08, 2023 David La MD Attending Provider, Other Provider Active Start: December 08, 2023 Team Status: Inactive Member Role Status Dates Dominik Mcdaniel MD Primary Care Provider Active Sta rt: December 24, 2023 End: December 24, 2023 David La MD Attending Provider Active Sta rt: December 24, 2023 End: December 24, 2023 Team Status: Inactive Member Role Status Dates Dominik Mcdaniel MD Primary Care Provider Active Sta rt: January 05, 2024 End: January 05, 2024 David La MD Attending Provider Active Sta rt: January 05, 2024 End: January 05, 2024 Dispensing And Measuring Optician Relationship Specialty Start Date End Date Dominik Mcdaniel MD [address] [facility] [place] [address] PCP - General Family Medicine 08/05/22 Dominik Mcdaniel MD [address] [place] [address] PCP - Medical [facility] [employer] 06/27/18 02/28/99 Ayse Carmona, BUSINESS INTELLIGENCE MANAGER [address] [place] [address] Nurse Practitioner Family Medicine 08/05/22 Alexandria Disla, RN [address] [place] [address] Registered Nurse Family Medicine 10/15/23 Dispensing And Measuring Optician Relationship Specialty Start Date End Date Dominik Mcdaniel MD [address] [place] [address] PCP - General Family Medicine 08/05/22 Dominik Mcdaniel MD [address] [place] [address] PCP - Medical [facility] [employer] 06/27/18 02/28/99 Ayse Carmona, VEREAN [address] [place] [address] Nurse Practitioner Family Medicine 08/05/22 Alexandria Disla, RN [address] [place] [address] Registered Nurse Family Medicine 10/15/23 Dispensing And Measuring Optician Relationship Specialty Start Date End Date Dominik Mcdaniel MD [address] [place] [address] PCP - General Family Medicine 08/05/22 Dominik Mcdaniel MD [address] [place] [address] PCP - Medical [facility] [employer] 06/27/18 02/28/99 Ayse Carmona NP [address] [place] [address] Nurse Practitioner Family Medicine 08/05/22 Alexandria Disla, RN [address] [place] [address] Registered Nurse Family Medicine 10/15/23 Dispensing And Measuring Optician Relationship Specialty Start Date End Date Dominik Mcdaniel MD [address] [place] [address] PCP - General Family Medicine 08/05/22 Dominik Mcdaniel MD [address] [place] [address] PCP - Medical [facility] [employer] 06/27/18 02/28/99 Ayse Carmona NP [address] [place] [address] Nurse Practitioner Family Medicine 08/05/22 Alexandria Disla, RN [address] [place] [address] Registered Nurse Family Medicine 10/15/23 Dispensing And Measuring Optician Relationship Specialty Start Date End Date Dominik Mcdaniel MD [address] [place] [address] PCP - General Family Medicine 08/05/22 Dominik Mcdaniel MD [address] [place] [address] PCP - Medical [facility] [employer] 06/27/18 02/28/99 Ayse Carmona NP [address] [place] [address] Nurse Practitioner Family Medicine 08/05/22 Alexandria Disla RN [address] [place] [address] Registered Nurse Family Medicine 10/15/23 Dispensing And Measuring Optician Relationship Specialty Start Date End Date Dominik Mcdaniel MD [address] [place] [address] PCP - General Family Medicine 08/05/22 Dominik Mcdaniel MD [address] [place] [address] PCP - Medical [facility] [employer] 06/27/18 02/28/99 Ayse Carmona, BUSINESS INTELLIGENCE MANAGER [address] [place] [address] Nurse Practitioner Family Medicine 08/05/22 Alexandria Disla RN [address] [place] [address] Registered Nurse Family Medicine 10/15/23 Dispensing And Measuring Optician Relationship Specialty Start Date End Date Dominik Mcdaniel MD [address] [place] [address] PCP - General Family Medicine 08/05/22 Dominik Mcdaniel MD [address] [place] [address] PCP - Medical [facility] [employer] 06/27/18 02/28/99 Ayse Carmona NP [address] [place] [address] Nurse Practitioner Family Medicine 08/05/22 Alexandria Disla RN [address] [place] [address] Registered Nurse Family Medicine 10/15/23 Sheldon Lal DO [address] [place] [place] [address] Otolaryngology 03/03/24 Dispensing And Measuring Optician Relationship Specialty Start Date End Date Dominik Mcdaniel MD [address] [place] [address] PCP - General Family Medicine 08/05/22 Dominik Mcdaniel MD [address] [place] [address] PCP - Medical [facility] 06/27/18 02/28/99 Ayse Carmona BUSINESS INTELLIGENCE MANAGER [address] [place] [address] Nurse Practitioner Family Medicine 08/05/22 Alexandria Disla, LAYTON [address] [place] [address] Registered Nurse Family Medicine 10/15/23 Sheldon Lal DO [address] [place] [address] Otolaryngology 03/03/24 Team Status: Active Member Role Status Dates Dominik Mcdaniel MD Primary Care Provider Active Sta rt: January 05, 2024 David La MD Attending Provider, Other Provider Active Start: January 05, 2024 Team Status: Inactive Member Role Status Dates Dominik Mcdaniel MD Primary Care Provider Active Sta rt: January 20, 2024 End: January 20, 2024 David La MD Attending Provider Active Sta rt: January 20, 2024 End: January 20, 2024 Team Status: Inactive Member Role Status Dates Dominik Mcdaniel MD Primary Care Provider Active Sta rt: January 31, 2024 End: January 31, 2024 David La MD Attending Provider Active Sta rt: January 31, 2024 End: January 31, 2024 Team Status: Inactive Member Role Status Ethan Mcdaniel MD Primary Care Provider Active Sta rt: February 03, 2024 End: February 03, 2024 David La MD Attending Provider Active Sta rt: February 03, 2024 End: February 03, 2024 Team Status: Inactive Member Role Status Ethan Mcdaniel MD Primary Care Provider Active Sta rt: February 10, 2024 End: February 10, 2024 David La MD Attending Provider Active Sta rt: February 10, 2024 End: February 10, 2024 Team Status: Inactive Member Role Status Ethan Mcdaniel MD Primary Care Provider Active Sta rt: March 03, 2024 End: March 03, 2024 David La MD Attending Provider Active Sta rt: March 03, 2024 End: March 03, 2024 Team Status: Inactive Member Role Status Ethan Mcdaniel MD Primary Care Provider Active Sta rt: March 20, 2024 End: March 20, 2024 David La MD Attending Provider Active Sta rt: March 20, 2024 End: March 20, 2024 Dispensing And Measuring Optician Relationship Specialty Start Date End Date Dominik Mcdaniel MD [address] [place] [address] PCP - General Family Medicine 08/05/22 Dominik Mcdaniel MD [address] [facility] [place] [address] PCP - Medical [facility] [employer] 06/27/18 02/28/99 Ayse Carmona NP [address] [place] [address] Nurse Practitioner Family Medicine 08/05/22 Alexandria Disla, LAYTON [address] [place] [address] Registered Nurse Family Medicine 10/15/23 Sheldon Lal DO [address] [place] [address] Otolaryngology 03/03/24 Dispensing And Measuring Optician Relationship Specialty Start Date End Date Dominik Mcdaniel MD [address] [facility] [place] [address] PCP - General Family Medicine 08/05/22 Dominik Mcdaniel MD [address] [place] [address] PCP - Medical [facility] [employer] 06/27/18 02/28/99 Ayse Carmona NP [address] [place] [address] Nurse Practitioner Family Medicine 08/05/22 Alexandria Disla RN [address] [place] [address] Registered Nurse Family Medicine 10/15/23 Sheldon Lal DO [address] [facility] [place] [address] Otolaryngology 03/03/24 Team Status: Inactive Member Role Status Dates Dominik Mcdaniel MD Primary Care Provider Active Sta rt: March 31, 2024 End: March 31, 2024 David La MD Attending Provider Active Sta rt: March 31, 2024 End: March 31, 2024 Team Status: Inactive Member Role Status Dates Dominik Mcdaniel MD Primary Care Provider Active Sta rt: April 13, 2024 End: April 13, 2024 David La MD Attending Provider Active Sta rt: April 13, 2024 End: April 13, 2024 Dispensing And Measuring Optician Relationship Specialty Start Date End Date Dominik Mcdaniel MD [address] [facility] [place] [address] PCP - General Family Medicine 08/05/22 Dominik Mcdaniel MD [address] [facility] [place] [address] PCP - Medical [facility] [employer] 06/27/18 02/28/99 Ayse Carmona NP [address] [facility] [place] [address] Nurse Practitioner Family Medicine 08/05/22 Alexandria Disla RN [address] [facility] [place] [address] Registered Nurse Family Medicine 10/15/23 Sheldon Lal, [address] [place] [address] Otolaryngology 03/03/24 Dispensing And Measuring Optician Relationship Specialty Start Date End Date Dominik Mcdaniel MD [address] [facility] [place] [address] PCP - General Family Medicine 08/05/22 Dominik Mcdaniel MD [address] [facility] [place] [address] PCP - Medical [facility] [employer] 06/27/18 02/28/99 Ayse Carmona NP [address] [facility] [place] [address] Nurse Practitioner Family Medicine 08/05/22 Alexandria Disla RN [address] [facility] [place] [address] Registered Nurse Family Medicine 10/15/23 Sheldon Lal, [address] [place] [address] Otolaryngology 03/03/24 Team Status: Inactive Member Role Status Dates Dominik Mcdaniel MD Primary Care Provider Active Sta rt: April 27, 2024 End: April 27, 2024 Grisel Garner NP Attending Provider Active Start: April 27, 2024 End: April 27, 2024 Dispensing And Measuring Optician Relationship Specialty Start Date End Date Dominik Mcdaniel MD [address] [facility] [place] [address] PCP - General Family Medicine 08/05/22 Dominik Mcdaniel MD [address] [facility] [place] [address] PCP - Medical [facility] [employer] 06/27/18 02/28/99 Ayse Carmona NP [address] [facility] [place] [address] Nurse Practitioner Family Medicine 08/05/22 Alexandria Disla, LAYTON [address] [facility] [place] [address] Registered Nurse Family Medicine 10/15/23 Sheldon Lal DO [address] [place] [address] Otolaryngology 03/03/24 Dispensing And Measuring Optician Relationship Specialty Start Date End Date Dominik Mcdaniel MD [address] [facility] [place] [address] PCP - General Family Medicine 08/05/22 Dominik Mcdaniel MD [address] [facility] [place] [address] PCP - Medical [facility] [employer] 06/27/18 02/28/99 Ayse Carmona NP [address] [facility] [place] [address] Nurse Practitioner Family Medicine 08/05/22 Alexandria Disla RN [address] [address] Registered Nurse Family Medicine 10/15/23 Sheldon Lal DO [address] [place] [address] Otolaryngology 03/03/24 Team Status: Inactive Member Role Status Dates Dominik Mcdaniel MD Primary Care Provider Active Sta rt: May 10, 2024 End: May 10, 2024 Grisel Garner NP Attending Provider Active Start: May 10, 2024 End: May 10, 2024 Team Status: Active Member Role Status Dates Dominik Mcdaniel MD Primary Care Provider Active Sta rt: May 19, 2024 yMriam Lebron MD Attending Provider Active Start: May 19, 2024 Roxie Rodriguez APRN BUSINESS INTELLIGENCE MANAGER-C Referring Provider Active Start: May 19, 2024 Dispensing And Measuring Optician Relationship Specialty Start Date End Date Dominik Mcdaniel MD [address] [facility] [place] [address] PCP - General Family Medicine 08/05/22 Dominik Mcdaniel MD [address] [facility] [place] [address] PCP - Medical [facility] [employer] 06/27/18 02/28/99 Ayse Carmona NP [address] [facility] [place] [address] Nurse Practitioner Family Medicine 08/05/22 Alexandria Disla, RN [address] [address] Registered Nurse Family Medicine 10/15/23 Sheldon Lal DO [address] [place] [address] Otolaryngology 03/03/24 Dispensing And Measuring Optician Relationship Specialty Start Date End Date Dominik Mcdaniel MD [address] [facility] [place] [address] PCP - General Family Medicine 08/05/22 Dominik Mcdaniel MD [address] [place] [address] PCP - Medical [facility] [employer] 06/27/18 02/28/99 Ayse Carmona NP [address] [place] [address] Nurse Practitioner Family Medicine 08/05/22 Alexandria Disla RN [address] [place] [address] Registered Nurse Family Medicine 10/15/23 Sheldon Lal DO [address] [place] [address] Otolaryngology 03/03/24 Team Status: Active Member Role Status Dates Dominik Mcdaniel MD Primary Care Provider Active Sta rt: June 27, 2024 Myriam Lebron MD Attending Provider Active Start: June 27, 2024 Roxie Rodriguez APRN BUSINESS INTELLIGENCE MANAGER-C Referring Provider Active Start: June 27, 2024 Dispensing And Measuring Optician Relationship Specialty Start Date End Date Dominik Mcdaniel MD [address] [place] [address] PCP - General Family Medicine 08/05/22 Dominik Mcdaniel MD [address] [place] [address] PCP - Medical [facility] [employer] 06/27/18 02/28/99 Ayse Carmona NP [address] [place] [address] Nurse Practitioner Family Medicine 08/05/22 Alexandria Disla RN [address] [place] [address] Registered Nurse Family Medicine 10/15/23 Sheldon Lal, [address] [place] [address] Otolaryngology 03/03/24 Dispensing And Measuring Optician Relationship Specialty Start Date End Date Dominik Mcdaniel MD [address] [place] [address] PCP - General Family Medicine 08/05/22 Dominik Mcdaniel MD [address] [place] [address] PCP - Medical [facility] [employer] 06/27/18 02/28/99 Ayse Carmona BUSINESS INTELLIGENCE MANAGER [address] [place] [address] Nurse Practitioner Family Medicine 08/05/22 Alexandria Disla, RN [address] [place] [address] Registered Nurse Family Medicine 10/15/23 Sheldon Lal, [address] [place] [address] Otolaryngology 03/03/24 Dispensing And Measuring Optician Relationship Specialty Start Date End Date Dominik Mcdaniel MD [address] [place] [address] PCP - General Family Medicine 08/05/22 Dominik Mcdaniel MD [address] [place] [address] PCP - Medical [facility] [employer] 06/27/18 02/28/99 Ayse Carmona NP [address] [facility] [place] [address] Nurse Practitioner Family Medicine 08/05/22 Alexandria Disla RN [address] [facility] [place] [address] Registered Nurse Family Medicine 10/15/23 Sheldon Lal, [address] [place] [address] Otolaryngology 03/03/24 Dispensing And Measuring Optician Relationship Specialty Start Date End Date Dominik Mcdaniel MD [address] [place] [address] PCP - General Family Medicine 08/05/22 Dominik Mcdaniel MD [address] [facility] [place] [address] PCP - Medical [employer] 06/27/18 02/28/99 Ayse Carmona NP [address] [facility] [place] [address] Nurse Practitioner Family Medicine 08/05/22 Alexandria Disla, RN [address] [facility] [place] [address] Registered Nurse Family Medicine 10/15/23 Sheldon Lal, [address] [place] [address] Otolaryngology 03/03/24 Dispensing And Measuring Optician Relationship Specialty Start Date End Date Dominik Mcdaniel MD [address] [facility] [place] [address] PCP - General Family Medicine 08/05/22 Dominik Mcdaniel MD [address] [facility] [place] [address] PCP - Medical [facility] [employer] 06/27/18 02/28/99 Ayse Carmona NP [address] [facility] [place] [address] Nurse Practitioner Family Medicine 08/05/22 Alexandria Disla RN [address] [facility] [place] [address] Registered Nurse Family Medicine 10/15/23 Sheldon Lal DO [address] [place] [address] Otolaryngology 03/03/24 Dispensing And Measuring Optician Relationship Specialty Start Date End Date Dominik Mcdaniel MD [address] [facility] [place] [address] PCP - General Family Medicine 08/05/22 Dominik Mcdaniel MD [address] [facility] [place] [address] PCP - Medical [employer] 06/27/18 02/28/99 Ayse Carmona NP [address] [facility] [place] [address] Nurse Practitioner Family Medicine 08/05/22 Alexandria Disla RN [address] [place] [address] Registered Nurse Family Medicine 10/15/23 Sheldon Lal DO [address] [place] [address] Otolaryngology 03/03/24 Dispensing And Measuring Optician Relationship Specialty Start Date End Date Dominik Mcdaniel MD [address] [place] [address] PCP - General Family Medicine 08/05/22 Dominik Mcdaniel MD [address] [place] [address] PCP - Medical [facility] [employer] 06/27/18 02/28/99 Ayse Carmona NP [address] [place] [address] Nurse Practitioner Family Medicine 08/05/22 Alexandria Disla, RN [address] [place] [address] Registered Nurse Family Medicine 10/15/23 Sheldon Lal, [address] [place] [address] Otolaryngology 03/03/24 Dispensing And Measuring Optician Relationship Specialty Start Date End Date Dominik Mcdaniel MD [address] [place] [address] PCP - General Family Medicine 08/05/22 Dominik Mcdaniel MD [address] [place] [address] PCP - Medical [facility] [employer] 06/27/18 02/28/99 Ayse Carmona NP [address] [facility] [place] [address] Nurse Practitioner Family Medicine 08/05/22 Alexandria Disla RN [address] [facility] [place] [address] Registered Nurse Family Medicine 10/15/23 Sheldon Lal DO [address] [place] [address] Otolaryngology 03/03/24 Dispensing And Measuring Optician Relationship Specialty Start Date End Date Dominik Mcdaniel MD [address] [facility] [place] [address] PCP - General Family Medicine 08/05/22 Dominik Mcdaniel MD [address] [facility] [place] [address] PCP - Medical [employer] 06/27/18 02/28/99 Ayse Carmona NP [address] [facility] [place] [address] Nurse Practitioner Family Medicine 08/05/22 Alexandria Disla RN [address] [facility] [place] [address] Registered Nurse Family Medicine 10/15/23 Sheldon Lal DO [address] [place] [address] Otolaryngology 03/03/24 Team Status: Active Member Role Status Dates Dominik Mcdaniel MD Primary Care Provider Active Sta rt: August 01, 2024 Yael Joya MD Attending Provider Active Start: August 01, 2024 Dispensing And Measuring Optician Relationship Specialty Start Date End Date Dominik Mcdaniel MD [address] [place] [address] PCP - General Family Medicine 08/05/22 Dominik Mcdaniel MD [address] [facility] [place] [address] PCP - Medical [employer] 06/27/18 02/28/99 Ayse Carmona, BUSINESS INTELLIGENCE MANAGER [address] [facility] [place] [address] Nurse Practitioner Family Medicine 08/05/22 Alexnadria Disla RN [address] [facility] [place] [address] Registered Nurse Family Medicine 10/15/23 Sheldon Lal DO [address] [facility] [place] [address] Otolaryngology 03/03/24 Dispensing And Measuring Optician Relationship Specialty Start Date End Date Dominik Mcdaniel MD [address] [place] [address] PCP - General Family Medicine 08/05/22 Dominik Mcdaniel MD [address] [facility] [place] [address] PCP - Medical [employer] 06/27/18 02/28/99 Ayse Carmona, BUSINESS INTELLIGENCE MANAGER [address] [facility] [place] [address] Nurse Practitioner Family Medicine 08/05/22 Alexandria Disla RN [address] [facility] [place] [address] Registered Nurse Family Medicine 10/15/23 Sheldon Lal DO [address] [address] Otolaryngology 03/03/24 Dispensing And Measuring Optician Relationship Specialty Start Date End Date Dominik Mcdaniel MD [address] [facility] [place] [address] PCP - General Family Medicine 08/05/22 Dominik Mcdaniel MD [facility] [facility] [place] [address] PCP - Medical [employer] 06/27/18 02/28/99 Alexandria Disla RN [address] [facility] [place] [address] Registered Nurse Family Medicine 10/15/23 Sheldon Lal DO [address] [place] [address] Otolaryngology 03/03/24 Roxie Rodriguez NP [address] [place] [address] Nurse Practitioner Family Medicine 08/23/24 Dispensing And Measuring Optician Relationship Specialty Start Date End Date Dominik Mcdaniel MD [address] [facility] [place] [address] PCP - General Family Medicine 08/05/22 Dominik Mcdaniel MD [address] [place] [address] PCP - Medical [employer] 06/27/18 02/28/99 Alexandria Disla RN [address] [place] [address] Registered Nurse Family Medicine 10/15/23 Sheldon Lal DO [address] [place] [address] Otolaryngology 03/03/24 Roxie Rodriguez NP [address] [place] [address] [place] [address] Nurse Practitioner Family Medicine 08/23/24 Dispensing And Measuring Optician Relationship Specialty Start Date End Date Dominik Mcdaniel MD [address] [facility] [place] [address] PCP - General Family Medicine 08/05/22 Dominik Mcdaniel MD [address] [place] [address] PCP - Medical [employer] 06/27/18 02/28/99 Alexandria Disla RN [address] [place] [address] Registered Nurse Family Medicine 10/15/23 Sheldon Lal DO [address] [place] [address] Otolaryngology 03/03/24 Roxie Rodriguez NP [address] [place] [address] Nurse Practitioner Family Medicine 08/23/24 Dispensing And Measuring Optician Relationship Specialty Start Date End Date Dominik Mcdaniel MD [address] [place] [address] PCP - General Family Medicine 08/05/22 Dominik Mcdaniel MD [address] [place] [address] PCP - Medical [employer] 06/27/18 02/28/99 Alexandria Disla, LAYTON [address] [place] [address] Registered Nurse Family Medicine 10/15/23 Sheldon Lal DO [address] [place] [address] Otolaryngology 03/03/24 Roxie Rodriguez NP [address] [place] [address] Nurse Practitioner Family Medicine 08/23/24 Dispensing And Measuring Optician Relationship Specialty Start Date End Date Dominik Mcdaniel MD [address] [place] [address] PCP - General Family Medicine 08/05/22 Dominik Mcdaniel MD [address] [facility] [place] [address] PCP - Medical [employer] 06/27/18 02/28/99 Alexandria Disla RN [address] [facility] [place] [address] Registered Nurse Family Medicine 10/15/23 Sheldon Lal DO [address] [place] [address] Otolaryngology 03/03/24 Roxie Rodriguez NP [address] [place] [address] Nurse Practitioner Family Medicine 08/23/24 Dispensing And Measuring Optician Relationship Specialty Start Date End Date Dominik Mcdaniel MD [address] [place] [address] PCP - General Family Medicine 08/05/22 Dominik Mcdaniel MD [address] [place] [address] PCP - Medical [employer] 06/27/18 02/28/99 Alexandria Disla, LAYTON [address] [facility] [place] [address] Registered Nurse Family Medicine 10/15/23 Sheldon Lal DO [address] [place] [address] Otolaryngology 03/03/24 Roxie Rodriguez NP [address] [facility] [place] [address] Nurse Practitioner Family Medicine 08/23/24 Dispensing And Measuring Optician Relationship Specialty Start Date End Date Dominik Mcdaniel MD [address] [place] [address] PCP - General Family Medicine 08/05/22 Dominik Mcdaniel MD [address] [place] [address] PCP - Medical [employer] 06/27/18 02/28/99 Alexandria Disla, LAYTON [address] [place] [address] Registered Nurse Family Medicine 10/15/23 Sheldon Lal DO [address] [place] [place] [address] Otolaryngology 03/03/24 Roxie Rodriguez NP [address] [place] [address] Nurse Practitioner Family Medicine 08/23/24 Dispensing And Measuring Optician Relationship Specialty Start Date End Date Dominik Mcdaniel MD [address] [facility] [place] [address] PCP - General Family Medicine 08/05/22 Dominik Mcdaniel MD [address] [place] [address] PCP - Medical [employer] 06/27/18 02/28/99 Alexandria Disla, RN [address] [place] [address] Registered Nurse Family Medicine 10/15/23 Sheldon Lal DO [address] [place] [address] Otolaryngology 03/03/24 Roxie Rodriguez NP [address] [place] [facility] [place] [address] Nurse Practitioner Family Medicine 08/23/24 Dispensing And Measuring Optician Relationship Specialty Start Date End Date Dominik Mcdaniel MD [address] [place] [address] PCP - General Family Medicine 08/05/22 Dominik Mcdaniel MD [address] [facility] [place] [address] PCP - Medical [employer] 06/27/18 02/28/99 Alexandria Dsila, RN [address] [place] [address] Registered Nurse Family Medicine 10/15/23 Sheldon Lal DO [address] [place] [address] Otolaryngology 03/03/24 Roxie Rodriguez NP [address] [facility] [place] [address] Nurse Practitioner Family Medicine 08/23/24 Dispensing And Measuring Optician Relationship Specialty Start Date End Date Dominik Mcdaniel MD [address] [facility] [place] [address] PCP - General Family Medicine 08/05/22 Dominik Mcdaniel MD [address] [facility] [place] [address] PCP - Medical [employer] 06/27/18 02/28/99 Alexandria Disla, RN [address] [place] [address] Registered Nurse Family Medicine 10/15/23 Sheldon Lal DO [address] [place] [address] Otolaryngology 03/03/24 Roxie Rodriguez NP [address] [facility] [place] [address] Nurse Practitioner Family Medicine 08/23/24 Team Status: Inactive Member Role Status Dates Dominik Mcdaniel MD Primary Care Provider Active Sta rt: September 12, 2024 End: September 12, 2024 Sheldon Lal DO Attending Provider Active S tart: September 12, 2024 End: September 12, 2024 Team Status: Inactive Member Role Status Dates Dominik Mcdaniel MD Primary Care Provider Active Sta rt: September 20, 2024 End: September 20, 2024 Sheldon Lal DO Attending Provider Active S tart: September 20, 2024 End: September 20, 2024 Dispensing And Measuring Optician Relationship Specialty Start Date End Date Dominik Mcdaniel MD [address] [place] [address] PCP - General Family Medicine 08/05/22 Dominik Mcdaniel MD [address] [place] [address] PCP - Medical [employer] 06/27/18 02/28/99 Alexandria Disla, LAYTON [address] [place] [address] Registered Nurse Family Medicine 10/15/23 Sheldon Lal DO [address] [place] [address] Otolaryngology 03/03/24 Roxie Rodriguez NP [address] [place] [address] Nurse Practitioner Family Medicine 08/23/24 Team Status: Active Member Role Status Dates Dominik Mcdaniel MD Primary Care Provider Active Sta rt: September 28, 2024 Nisha Gloria MD Emergency Provider Active Start: September 28, 2024 Pedro Luis Roper MD Admit Provider Active Start: September 28, 2024 Pedro Luis Roper MD Attending Provider Active Sta rt: September 28, 2024 Damien Caballero MD Other Provider Active Start: September 28, 2024 Team Status: Active Member Role Status Dates Dominik Mcdaniel MD Primary Care Provider Active Sta rt: September 28, 2024 Nisha Gloria MD Emergency Provider Active Start: September 28, 2024 Pedro Luis Roper MD Admit Provider Active Start: September 28, 2024 Ingris Lopez MD Other Provider Active Start: Gayle david 2024 Watson Curran MD Attending Provider Active Start: September 28, 2024 Damien Caballero MD Other Provider Active Start: September 28, 2024 Reina Montenegro RN Other Provider Active Star t: September 28, 2024 Ray Joaquin MD Attending Provider Active Star t: September 28, 2024 Ray Joaquin MD Other Provider Active Start: y 2024 Joel Barlow MD Other Provider Active Start: September 28, 2024 Sanaz Almanzar MD Other Provider Active Start: September 28, 2024 Marleny Jules APRN Other Provider Active Sta rt: September 28, 2024 Team Status: Active Member Role Status Dates Dominik Mcdaniel MD Primary Care Provider Active Sta rt: October 05, 2024 Nisha Gloria MD Emergency Provider Active Start: October 05, 2024 Pedro Luis Roper MD Admit Provider Active Start: October 05, 2024 Ingris Lopez MD Other Provider Active Start: A 2024 Cedric Quiñonez DO Attending Provider Active St art: October 05, 2024 Cedric Quiñonez DO Other Provider Active Start: October 05, 2024 Pastora Ngo APRN Other Provider Active Start: October 05, 2024 Nisha Venegas DO Other Provider Active Sta rt: October 05, 2024 Raghavendra De La Torre DO FELLOW Other Provider Active Start: October 05, 2024 Wolfgang Burch DO FELLOW Other Provider Active S tart: October 05, 2024 Conrado Eaton MD Other Provider Active Start: October 05, 2024 Dispensing And Measuring Optician Relationship Specialty Start Date End Date Dominik Mcdaniel MD [address] [place] [address] PCP - General Family Medicine 08/05/22 Dominik Mcdaniel MD [address] [place] [address] PCP - Medical [employer] 06/27/18 02/28/99 Alexandria Disla RN [address] [place] [address] Registered Nurse Family Medicine 10/15/23 Sheldon Lal DO [address] [place] [address] Otolaryngology 03/03/24 Roxie Rodriguez NP [address] [place] [address] Nurse Practitioner Family Medicine 08/23/24 Dispensing And Measuring Optician Relationship Specialty Start Date End Date Dominik Mcdaniel MD [address] [place] [address] PCP - General Family Medicine 08/05/22 Dominik Mcdaniel MD [address] [place] [address] PCP - Medical [employer] 06/27/18 02/28/99 Alexandria Disla RN [address] [place] [address] Registered Nurse Family Medicine 10/15/23 Sheldon Lal DO [address] [place] [address] Otolaryngology 03/03/24 Roxie Rodriguez NP [address] [place], [place] [address] Nurse Practitioner Family Medicine 08/23/24 Dispensing And Measuring Optician Relationship Specialty Start Date End Date Dominik Mcdaniel MD [address] [place], [place] [address] PCP - General Family Medicine 08/05/22 Alexandria Disla, LAYTON [address] [place] [address] Registered Nurse Family Medicine 10/15/23 Sheldon Lal DO [address] [place] [address] Otolaryngology 03/03/24 Roxie Rodriguez NP [address] [place] [address] Nurse Practitioner Family Medicine 08/23/24 Goals (unrecognized section and content) Goals may be documented in a n alternate sectionGoals may be documented in an alternate sectionGoals may be documented in an alternate sectionGoals may be documented in an alternate sectionGoals may be documented in an alternate sectionGoals may be documented in an alternate sectionGoals may be documented in an alternate sectionGoals may be documented in an alternate sectionGoals may be documented in an alternate sectionGoals may be documented in an alternate sectionGoals may be documented in an alternate sectionGoals may be documented in an alternate sectionGoals may be documented in an alternate sectionGoals may be documented in an alternate sectionGoals may be documented in an alternate sectionGoals may be documented in an alternate section Reason for Visit (unrecogniz ed section and content) Reason Comments Med Change Request Reason Comments Annual Exam Reason Comments Med Refill Reason Comments URI Reason Comments Follow-up Patient presents tod ay for follow up from Wednesday. Patient is not doing any better, Stephanie seen patient and dx with pneumonia. 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 Pt states has been there for quite a while , started hurting about 3 weeks ago. Pt states her was treating it as a wart, they were using OTC wart strips . Pt states she will occasionally have a sharp pain. Pt states that her family doctor thinks it may be melanoma, no biopsies done. Specialty Diagnoses / Procedures Referred By Contac t Referred To Contact Podiatry Diagnoses Open wound of right foot excluding one or more toes, initial encounter Procedures [place] OFFICE/OUTPATIENT NEW HIGH MDM 60 MINUTES Roxie Rodriguez NP [address] [place] [address] Phone: tel: fax: Samir Weinstein, DPM [address] [place] [address] Phone: tel: fax: Referral ID Status Reason Start Date Expiration Date V isits Requested Visits Authorized [id number] Closed Specialty Services Required 08/15/2024 11/15/2024 1 1 Reason Comments Swollen Glands New Problem : swolle n lymph nodes / recent tooth infection Specialty Diagnoses / Procedures Referred By Contac t Referred To Contact Otolaryngology Diagnoses Cervical adenopathy Procedures TN OFFICE/OUTPATIENT NEW HIGH MDM 60 MINUTES Dominik Mcdaniel MD [address] [place] [address] Phone: tel: fax: Sheldon Lal, [address] [facility] [place] [address] Phone: tel: fax: Referral ID Status Reason Start Date Expiration Date V isits Requested Visits Authorized [id number] Closed Specialty Services Required 08/24/2024 02/20/2025 1 1 Reason Onset Date Comments Med Refill 08/28/2024 Reason Onset Date Comments Advice Only 08/29/2024 toe Reason Comments Neck Mass CT results Reason Comments Mass Between armpit and r ight breast. Reason Comments Follow-up Established patient presents today for 2 week punch biopsy follow up, and to go over the results of the punch biopsy. Patient states she did have a lot of pain yesterday, states it was burning all day. Patient states this comes and goes, some days are better than others. Reason Comments Post-op Drain removal Reason Comments Post-op Post op geovanny Parotid ectomy Ear Problem Can't hear out of ea r FOR RECORDS PERTAINING TO PATIENTS WHO ARE OR HAVE BEEN ENROLLED IN A CHEMICAL DEPENDENCY/SUBSTANCEABUSE PROGRAM, SOME INFORMATION MAY BE OMITTED. This clinical summary was aggregated from multiple sources. Caution should be exercised in using it in the provision of clinical care. This summary normalizes information from multiple sources, and as a consequence, information in this document may materially change the coding, format and clinical context of patient data. In addition, data may be omitted in some cases. CLINICAL DECISIONS SHOULD BE BASED ON THE PRIMARY CLINICAL RECORDS. [employer] provides no warranty or guarantee of the accuracy or completeness of information in this document.
--- NOTE | 2024-10-25 10:46 | PM.CN ---
Consult Note: HPI Data of Consult Patient: new to practice Consult date: 10/25/24 Requesting Physician: Marci Stafford NP Primary Care Provider: BARBER MELTON Consult Narrative Reason for consult: establish care Narrative: Kaylynn Talamantes a pleasant 64 year old female with PMH bipolar depression, tobacco use, alcohol abuse, respiratory failure, RA, OA, and fibromyalgia presents to establish care. Historically patient has been to pain management with Dr Porter and failed to respond to numerous injections, tylenol, NSAIDs, lyrica, gabapentin. currently utilizing norco prn with minimal relief, she was discharged from the hospital within the last few days and they had pt on butrans which provided significant pain relief. pt has failed PT, aquatherapy, heat, ice, and TENS. pain 10/10 full body. Pt having to transfer care with pain management and rheumatology due to change in insurance. she was utilizing methotrexate for RA with minimal relief. cc:: CC: Marci Stafford NP [facility] Medical History (Updated 10/25/24 @ 10:49 by Macri Stafford NP) Depression ?F32.A - Depression, unspecified (ICD-10) Anxiety ?F41.9 - Anxiety disorder, unspecified (ICD-10) Hypertension ?I10 - Essential (primary) hypertension (ICD-10) Meds Home Medications and Allergies Home Medications ?Medication ?Instructions ?Recorded ?Confirmed ?Type atorvastatin 20 mg tablet 20 mg PO DAILY 08/04/22 05/31/23 History cholecalciferol (vitamin D3) 50 2,000 unit PO DAILY 08/04/22 05/31/23 History mcg (2,000 unit) capsule (Vitamin D3) furosemide 20 mg tablet 20 mg PO DAILY 08/04/22 05/31/23 History lisinopril 20 1 tab PO DAILY 08/04/22 05/31/23 History mg-hydrochlorothiazide 12.5 mg tablet pantoprazole 40 mg tablet,delayed 40 mg PO DAILY 08/04/22 05/31/23 History release topiramate 50 mg tablet 50 mg PO DAILY 08/04/22 05/31/23 History zolpidem 10 mg tablet 10 mg PO .hs PRN sleep 08/04/22 05/31/23 History aripiprazole 5 mg tablet 5 mg PO DAILY 05/31/23 05/31/23 History lorazepam 1 mg tablet 1 mg PO DAILY PRN anxiety 05/31/23 05/31/23 History paroxetine HCl 20 mg tablet 20 mg PO DAILY 05/31/23 05/31/23 History Allergies Allergy/AdvReac Type Severity Reaction Status Date / Time acyclovir Allergy Intermediate Verified 08/04/22 15:13 tb-serum Allergy Intermediate Uncoded 08/04/22 15:13 Exam Narrative Exam Narrative: diffuse hyperalegisa Constitutional Documenting provider has reviewed patient's vital signs: yes Common normals: no apparent distress, oriented x3, healthy appearing, alert and well nourished General appearance: cooperative HENNV Common normals: normocephalic, hearing grossly normal bilaterally and moist oral mucous membranes Head and scalp: normocephalic Eye Common normals: PERRL Pupil: PERRL Neck & C-Spine Common normals: full ROM General: normal visual inspection Cervical spine: cervical ROM abnormal, pain with cervical ROM and cervical spine tenderness Chest Common normals: inspection of chest normal Respiratory Common normals: normal respiratory effort, no retractions and no use of accessory muscles Back & Pelvis Thoracic spine/upper back: ROM limited, pain with ROM and thoracic spinal tenderness Lumbar spine/lower back: ROM limited, pain with ROM, lumbar spinal tenderness and straight leg raise negative bilaterally Other: strength 5/5 in BLE Neuro Common normals: oriented x3 Sensorium/orientation: alert Psych Common normals: mental status grossly normal, thought process normal, cooperative, affect normal, speech normal and activity/motor behavior normal Speech: normal speech Thought process: normal thought process Results Additional Findings Additional findings: If on a controlled substance or opioids, I have checked an [place] report on this patient and there are no aberrancies noted in the prescribing history.??If on a controlled substance or opioid a drug screen was completed and reviewed within the last year, and if there has not been a drug screen completed we ordered one today to monitor higher risk, state monitored pain medication use. As part of providing excellent, safe, comprehensive care, the following was completed at our patient's visit: 1. A medication reconciliation and review to ensure accurate knowledge of current/active medications, including asking our patients to inform us about any [id number] medications or herbal remedies/nutritional supplements/alternative remedies. 2. A review to specifically ensure our patients have had annual screening for screening for depression, screening for tobacco use, and screening for unhealthy alcohol use. For concerning screenings had a discussion with the patient, provided patient education, and recommended follow-up with primary care provider when appropriate. If patient noted with a risk of falling, they received education on strength, gait, and balance training to prevent future risk of falling. Portions of this note may have been carried over from the previous visit and updated as appropriate. Please note this office utilizes paper charting in addition to the electronic medical record. A list of current medications, vitals, and PMH is available there as the clinical staff outside of myself do not have access to [employer] charting during the clinic day operations. As part of providing quality comprehensive care the current medications, vitals, and PMH were reviewed in the paper chart. Assessment and Plan Assessment and Plan (1) Fibromyalgia: (2) Rheumatoid arthritis: (3) Osteoarthritis: (4) Alcohol abuse: Plan 64 year old female with chronic diffuse pain secondary to RA and FM, cannot tolerate PT or HEP due to severe pain. Has failed to benefit from heat, ice, TENS. failed oral tylenol, motrin, aleve, hydrocodone, lyrica, gabapentin. pending transfer of care for rheumatology for RA. due to severe pain unresponsive to numerous therapies and hx of substance abuse will initiate butrans 5mcg/hr q 7 days for OA/RA and chronic pain, risks vs benefits reviewed. update UDS today, TAX ATTORNEY reviewed and signed. f/u 1 month to review medication regimen
== END 2024-10-25 09:33 | disposition home or self-care (01) ==
LOC: PM 09:33
PROVIDERS: PCP Family Medicine; Visit Provider Nurse Practitioner
DX: M79.7 Fibromyalgia (principal); M06.8A Other specified rheumatoid arthritis, other specified site; M19.90 Unspecified osteoarthritis, unspecified site; F10.10 Alcohol abuse, uncomplicated
CPT/HCPCS: G0463